=== PATIENT | female | born 1980 | race Caucasian/White ===

== ENCOUNTER 2016-09-21 12:42 | Inpatient (IN) | payer OTHER ==
[2016-09-21] MEDS ORDERED: HYDROmorphone 1 MG/ML 1 ML SYRINGE IVP STA (13:24)
[2016-09-21] MEDS ORDERED: SODIUM CHLORIDE 0.9% 1,000 ML IV STA (13:24)
[2016-09-21] MEDS ORDERED: ONDANSETRON 4 MG/2 ML VIAL IVP STA (13:24)
--- NOTE | 2016-09-21 13:33 | ED ---
General Adult HPI - General Chief complaint: Abdominal Pain Stated complaint: vomiting Time Seen by Provider: 09/21/16 13:17 Source: patient, RN notes reviewed Mode of arrival: ambulatory Limitations: no limitations - History of Present Illness Initial comments: Patient 36-year-old female who presents emergency room today with a chief complaint of abdominal pain over the last 2 weeks. Does admit to symptoms of nausea vomiting. States she's been feeling lightheaded at times. States had difficult time keeping down any food or liquids. Patient does admit that she's had pain in the past that she's not is related to acid reflux. Patient denies any other complaints or associated symptoms. Patient denies any recent fever, chills, shortness of breath, chest pain, back pain, numbness or tingling, dysuria or hematuria, constipation or diarrhea, headaches or visual changes, or any other complaints. - Related Data Home Medications Medication Instructions Recorded Confirmed No Known Home Medications [No 09/21/16 09/21/16 Known Home Medications] Allergies Allergy/AdvReac Type Severity Reaction Status Date / Time cephalexin monohydrate Allergy Rash/Hives Verified 09/21/16 13:20 [From Keflex] codeine Allergy Rash/Hives Verified 09/21/16 13:20 Review of Systems ROS Statement: Those systems with pertinent positive or pertinent negative responses have been documented in the HPI. ROS Other: All systems not noted in ROS Statement are negative. Past Medical History Past Medical History: GERD/Reflux Additional Past Medical History / Comment(s): CURRENT: MULTIPLE EC VISIT AND TESTING FOR ABD PAIN, FOUND TO HAVE KIDNEY STONE (RIGHT). History of Any Multi-Drug Resistant Organisms: None Reported Past Surgical History: Appendectomy, Orthopedic Surgery Additional Past Surgical History / Comment(s): Left knee surgery Past Anesthesia/Blood Transfusion Reactions: No Reported Reaction Past Psychological History: Anxiety Smoking Status: Current every day smoker Past Alcohol Use History: Occasional Additional Past Alcohol Use History / Comment(s): SMOKED 20 YRS, 1/2 PPD. Past Drug Use History: Marijuana - Past Family History Mother Family Medical History: Diabetes Mellitus Brother(s) Family Medical History: Diabetes Mellitus General Exam - General Exam Comments Initial Comments: General: The patient is awake and alert, in no distress, and does not appear acutely ill. Eye: Pupils are equal, round and reactive to light, extra-ocular movements are intact. No nystagmus. There is normal conjunctiva bilaterally. No signs of icterus. Ears, nose, mouth and throat: There are moist mucous membranes and no oral lesions. Neck: The neck is supple, there is no tenderness or JVD. Cardiovascular: There is a regular rate and rhythm. No murmur, rub or gallop is appreciated. Respiratory: Lungs are clear to auscultation, respirations are non-labored, breath sounds are equal. No wheezes, stridor, rales, or rhonchi. Gastrointestinal: Normal. 7. Normal bowel sounds. Soft on palpation. Patient does have tenderness epigastric and right upper quadrant. Positive Luqeu sign. No rebound tenderness. No guarding. No CVA tenderness. Musculoskeletal: Normal ROM, no tenderness. Strength 5/5. Sensation intact. Pulses equal bilaterally 2+. Neurological: A&O x 3. CN II-XII intact, There are no obvious motor or sensory deficits. Coordination appears grossly intact. Speech is normal. Skin: Skin is warm and dry and no rashes or lesions are noted. Psychiatric: Cooperative, appropriate mood & affect, normal judgment. Limitations: no limitations Course Vital Signs 09/21/16 09/21/16 12:59 14:28 Temperature 98 F 98.2 F Pulse Rate 106 H 69 Respiratory 20 16 Rate Blood Pressure 132/69 102/55 O2 Sat by Pulse 99 100 Oximetry EKG Findings - EKG Comments: EKG Findings:: EKG performed at 1437: Shows sinus rhythm at 64 bpm. NC interval 108. QRS 82. QT/QTc 428/441. Compared to previous EKG performed on 01/10/2016 shows no acute changes. Medical Decision Making - Medical Decision Making Patient reexamined at this time is resting comfortably in the stretcher states still feeling nauseated. Patient's ultrasound reviewed shows no evidence of cholecystitis. No gallstones. Common bile blood within normal limits. Shows a resolving hydronephrosis. Patient does have history of a kidney stone. Patient labs been reviewed does show hypokalemia. Has been given by mouth and IV potassium. Patient will be admitted for hypokalemia and dehydration. Patient's EKG reviewed shows no acute changes. Results were discussed with the patient. Patient aware the plan. - Lab Data Result diagrams: 09/21/16 13:50 09/21/16 13:50 Lab Results 09/21/16 09/21/16 09/21/16 Range/Units 13:50 13:50 13:50 WBC 3.6 L (3.8-10.6) k/uL RBC 3.34 L (3.80-5.40) m/uL Hgb 13.1 (11.4-16.0) gm/dL Hct 38.5 (34.0-46.0) % MCV 115.4 H (80.0-100.0) fL MCH 39.1 H (25.0-35.0) pg MCHC 33.9 (31.0-37.0) g/dL RDW 14.4 (11.5-15.5) % Plt Count 129 L (150-450) k/uL Neutrophils % 66 % Lymphocytes % 28 % Monocytes % 4 % Eosinophils % 1 % Basophils % 0 % Neutrophils # 2.4 (1.3-7.7) k/uL Lymphocytes # 1.0 (1.0-4.8) k/uL Monocytes # 0.1 (0-1.0) k/uL Eosinophils # 0.0 (0-0.7) k/uL Basophils # 0.0 (0-0.2) k/uL Manual Slide Review Performed Poikilocytosis (manual Present Macrocytosis Marked Sodium 136 L (137-145) mmol/L Potassium 2.7 L* (3.5-5.1) mmol/L Chloride 89 L (98-107) mmol/L Carbon Dioxide 33 H (22-30) mmol/L Anion Gap 14 mmol/L BUN 6 L (7-17) mg/dL Creatinine 0.62 (0.52-1.04) mg/dL Est GFR (MDRD) Af Amer >60 (>60 ml/min/1.73 sqM) Est GFR (MDRD) Non-Af >60 (>60 ml/min/1.73 sqM) Glucose 103 H (74-99) mg/dL Calcium 9.4 (8.4-10.2) mg/dL Total Bilirubin 1.2 (0.2-1.3) mg/dL AST 122 H (14-36) U/L ALT 33 (9-52) U/L Alkaline Phosphatase 215 H (38-126) U/L Total Protein 7.4 (6.3-8.2) g/dL Albumin 4.1 (3.5-5.0) g/dL Amylase 39 (30-110) U/L Lipase 54 (23-300) U/L Urine Color Urine Appearance (Clear) Urine pH (5.0-8.0) Ur Specific Zill[place] (1.001-1.035) Urine Protein (Negative) Urine Glucose (UA) (Negative) Urine Ketones (Negative) Urine Blood (Negative) Urine Nitrite (Negative) Urine Bilirubin (Negative) Urine Urobilinogen (<2.0) mg/dL Ur Leukocyte Esterase (Negative) Urine WBC (0-5) /hpf Ur Squamous Epith Cells (0-4) /hpf Urine Mucus (None) /hpf Urine HCG, Qual Not Detected (Not Detectd) 09/21/16 Range/Units 13:50 WBC (3.8-10.6) k/uL RBC (3.80-5.40) m/uL Hgb (11.4-16.0) gm/dL Hct (34.0-46.0) % MCV (80.0-100.0) fL MCH (25.0-35.0) pg MCHC (31.0-37.0) g/dL RDW (11.5-15.5) % Plt Count (150-450) k/uL Neutrophils % % Lymphocytes % % Monocytes % % Eosinophils % % Basophils % % Neutrophils # (1.3-7.7) k/uL Lymphocytes # (1.0-4.8) k/uL Monocytes # (0-1.0) k/uL Eosinophils # (0-0.7) k/uL Basophils # (0-0.2) k/uL Manual Slide Review Poikilocytosis (manual Macrocytosis Sodium (137-145) mmol/L Potassium (3.5-5.1) mmol/L Chloride (98-107) mmol/L Carbon Dioxide (22-30) mmol/L Anion Gap mmol/L BUN (7-17) mg/dL Creatinine (0.52-1.04) mg/dL Est GFR (MDRD) Af Amer (>60 ml/min/1.73 sqM) Est GFR (MDRD) Non-Af (>60 ml/min/1.73 sqM) Glucose (74-99) mg/dL Calcium (8.4-10.2) mg/dL Total Bilirubin (0.2-1.3) mg/dL AST (14-36) U/L ALT (9-52) U/L Alkaline Phosphatase (38-126) U/L Total Protein (6.3-8.2) g/dL Albumin (3.5-5.0) g/dL Amylase (30-110) U/L Lipase (23-300) U/L Urine Color Dark Brown Urine Appearance Cloudy H (Clear) Urine pH 6.0 (5.0-8.0) Ur Specific Zill[place] 1.022 (1.001-1.035) Urine Protein 2+ H (Negative) Urine Glucose (UA) Negative (Negative) Urine Ketones 1+ H (Negative) Urine Blood Large H (Negative) Urine Nitrite Negative (Negative) Urine Bilirubin 1+ H (Negative) Urine Urobilinogen 4.0 (<2.0) mg/dL Ur Leukocyte Esterase Trace H (Negative) Urine WBC 9 H (0-5) /hpf Ur Squamous Epith Cells 32 H (0-4) /hpf Urine Mucus Many H (None) /hpf Urine HCG, Qual (Not Detectd) Disposition Clinical Impression: Hypokalemia, Nausea & vomiting Disposition: ADMITTED IP TO THIS HOSP Condition: Stable Time of Disposition: 15:22
[2016-09-21 14:12] LABS: Basophils % (A) 0 %; CHCM 34.8; Eosinophils % (A) 1 %; HCT 38.5 % (34.0-46.0); HDW 2.57; HGB 13.1 gm/dL (11.4-16.0); Luc # (Auto) 0.06; Luc % (Auto) 2; Lymphocytes % (A) 28 %; MCH 39.1 pg (25.0-35.0); MCHC 33.9 g/dL (31.0-37.0); MCV 115.4 fL (80.0-100.0); Macrocytosis Marked; Mean Platelet Volume 8.7; Monocytes # (A) 0.1 k/uL (0-1.0); Monocytes % (A) 4 %; Neutrophils # (A) 2.4 k/uL (1.3-7.7); Neutrophils % (A) 66 %; RBC 3.34 m/uL (3.80-5.40); RDW 14.4 % (11.5-15.5); WBC 3.6 k/uL (3.8-10.6); WBC (Perox) 3.56
[2016-09-21 14:22] LABS: ALT 33 U/L (9-52); AST 122 U/L (14-36); Alkaline Phosphatase 215 U/L (38-126); Amylase 39 U/L (30-110); Anion Gap 14 mmol/L; Blood Urea Nitrogen 6 mg/dL (7-17); Calcium 9.4 mg/dL (8.4-10.2); Carbon Dioxide 33 mmol/L (22-30); Chloride 89 mmol/L (98-107); Glucose 103 mg/dL (74-99); Non-African American GFR(MDRD) >60 (>60 ml/min/1.73 sqM); Sodium 136 mmol/L (137-145); Total Bilirubin 1.2 mg/dL (0.2-1.3); Total Protein 7.4 g/dL (6.3-8.2)
[2016-09-21 14:25] LABS: Potassium 2.7 mmol/L (3.5-5.1)
[2016-09-21 14:26] LABS: Appearance,Urine Cloudy (Clear); Bilirubin,Urine 1+ (Negative); Glucose,Urine (UA) Negative (Negative); Ketones,Urine 1+ (Negative); Leukocyte Esterase,Urine Trace (Negative); Mucus,Urine Many /hpf; Nitrite,Urine Negative (Negative); Particle Count 56491; Protein,Urine 2+ (Negative); Specific Gravity,Urine 1.022 (1.001-1.035); Squamous Epithelial Cell,Urine 32 /hpf (0-4); UA Billing (MACRO vs. MICRO) MICRO; WBC,Urine 9 /hpf (0-5)
[2016-09-21] MEDS ORDERED: POTASSIUM CHLORIDE ER 20 MEQ TAB.ER PO STA (14:27)
[2016-09-21 14:36] LABS: Manual Review Performed
--- NOTE | 2016-09-21 14:49 | US ---
EXAMINATION TYPE: US abdomen limited DATE OF EXAM: 09/21/2016 2:11 PM COMPARISON: Ultrasound abdomen dated 10 January 2016, CT abdomen pelvis 10 May 2016 CLINICAL HISTORY: Pain x 2 weeks radiating to back. vomiting. EXAM MEASUREMENTS: Liver Length: 19cm Gallbladder Wall: 0.1 cm CBD: 0.4 cm Right Kidney: 10.3 x 5.1 x 3.7 cm cm There is no ascites. Pancreas: Partially obscured by bowel gas Liver: wnl, sub optimal visualization overall d/t overlying bowel gas. The liver again shows coarse echotexture and shows an increase in, is enlarged. Gallbladder: wnl, large in size. Fold at neck and fundus CBD: wnl Right Kidney: Resolution of patient's hydronephrosis. IMPRESSION: Interval resolution of right-sided hydronephrosis. Fatty infiltration of the liver, hepat omegaly. Limited exam.
--- NOTE | 2016-09-21 15:03 | XR ---
EXAMINATION TYPE: XR KUB DATE OF EXAM ORDERED: 09/21/2016 2:38 PM HISTORY: abdominal pain. COMPARISON: Previous study dated 05/22/2016. FINDINGS: The abdominal gas pattern is normal. There is no evidence of obstruction or free air. Ther e are are stable phleboliths within the pelvis. IMPRESSION: NO ACUTE INTRA-ABDOMINAL ABNORMALITY.
[2016-09-21] MEDS: SODIUM CHLORIDE 0.9% 1,000 ML IV STA ×2 (15:13→15:41)
[2016-09-21] MEDS ORDERED: NALOXONE 0.4 MG/ML 1 ML VIAL IV PRN (15:35)
[2016-09-21] MEDS ORDERED: SODIUM CHLORIDE 0.9% 1,000 ML IV ONE (15:35)
[2016-09-21] MEDS: POTASSIUM CHLORIDE 10 MEQ, LIDOCAINE 2% INJ 10 MG in SODIUM CHLORIDE 0.9% 100 ML IVPB SCH ×4 (15:39→20:03)
[2016-09-21] MEDS: ONDANSETRON 4 MG/2 ML VIAL IVP PRN (17:15)
[2016-09-21] MEDS: HYDROmorphone 1 MG/ML 1 ML SYRINGE IV PRN ×2 (17:16→20:48)
[2016-09-21] MEDS ORDERED: 0.9% NACL WITH KCL 20 MEQ/L 1,000 ML IV ONE (18:00)
[2016-09-21] MEDS: LEVOFLOXACIN 500MG-D5W PMX 500 MG in DEXTROSE/WATER 1 100ML.BAG IVPB SCH (20:52)
--- NOTE | 2016-09-21 22:34 | HP ---
CHIEF COMPLAINT: Abdominal pain, diarrhea and hypokalemia. HISTORY OF PRESENT ILLNESS: This 36-year-old woman with a past medical history of multiple medical problems, including GERD, history of significant abdominal pain and multiple ER visits, history of nephrolithiasis, history of DJD, history of anxiety, history of THC being followed by no primary physician in the outpatient setting, was complaining of abdominal pain, nausea and vomiting for the last 2 weeks. The patient also had a cough and vomiting also initially. Because of increased symptoms, the patient came to [facility], admitted for further evaluation and treatment. Of note, the patient was found to have severe hypokalemia, potassium 2.7. The patient's AST was also elevated. There is no history of any fever, rigors, chills. No history of headache, loss of consciousness. UA showed significant proteinuria and 9 WBCs. Influenza is negative. PAST MEDICAL HISTORY: History of GERD, history of multiple , history of DJD, history of anxiety, history of nicotine dependence. Medications prior to admission include none. ALLERGIES: CEPHALEXIN AND CODEINE. FAMILY HISTORY: History of diabetes mellitus in the family. SOCIAL HISTORY: No alcohol per chart. History of nicotine dependence. REVIEW OF SYSTEMS: ENT: No diminished hearing, diminished vision. CARDIOVASCULAR: No angina, palpitations. RESPIRATORY: As mentioned earlier. GI: As mentioned earlier. : No dysuria. NERVOUS: No numbness or weakness. ALLERGY/IMMUNOLOGY: No asthma or hay fever. MUSCULOSKELETAL: As mentioned earlier. HEMATOLOGY/ONCOLOGY: No history of anemia. ENCODRINE: No history of diabetes, hypothyroidism. CONSTITUTIONAL: As mentioned earlier. DERMATOLOGY: Negative. RHEUMATOLOGY: Negative. PSYCHIATRY: As mentioned earlier. PHYSICAL EXAMINATION: Alert and oriented x3. Pulse of 69, blood pressure 119/55, respirations 16, temperature 98.4, pulse ox 98% on room air. HEENT: Conjunctivae normal. Oral mucosa dry. NECK: No jugular venous distension. No carotid bruits. No lymph node enlargement. CARDIOVASCULAR: S1 and S2 muffled. No S3. No S4. RESPIRATORY: Breath sounds diminished in the bases. A few scattered rhonchi. No crackles. ABDOMEN: Soft. Mild diffuse discomfort to palpation. No guarding. No rigidity. No mass palpable. LEGS: No edema. No swelling. NERVOUS SYSTEM: Higher functions as mentioned. Moves all 4 limbs. No focal motor or sensory deficits. LYMPHATIC: No lymph nodes palpable in the neck, axillae or groin. SKIN: No ulcer, rash or bleeding. LABS: WBC 8.6, hemoglobin 13.1, MCV is 115.4, platelets are 129. Sodium 138, potassium 2.7. Other labs are noted. ASSESSMENT: 1. Nausea, vomiting and diarrhea with severe dehydration, possibly acute gastroenteritis. 2. Severe hypokalemia secondary from diarrhea. 3. Hyponatremia. 4. Increased AST, rule out hepatitis. 5. Thrombocytopenia. 6. Increased MCV. 7. Mild leukopenia. 8. Proteinuria. 9. Rule out possible urinary tract infection. 10. History nicotine dependence. 11. History of anxiety and not otherwise specified. 12. History THC. 13. History of degenerative joint disease. 14. History of gastroesophageal reflux disease. 15. History of right hydronephrosis. 16. Fatty infiltration of liver. 17. FULL CODE. RECOMMENDATIONS AND DISCUSSION: In this 36-year-old woman who presented with multiple complex medical issues, will monitor the patient closely. Continue the current medications and symptomatic treatment. Will check for C. diff. and influenza. Otherwise, I will recommend empiric antibiotics and continue to monitor. The abdominal ultrasound was done, which in the ER showed interval resolution of the right hydronephrosis. Otherwise, fatty infiltration of liver and hepatomegaly is noted. The KUB x-rays showed no acute intra-abdominal abnormality. Prognosis guarded. See orders for further details. Further recommendations to follow. Repeat potassium has been recommended. Will check magnesium as well. Also recommend the patient follow up with a primary care physician closely after discharge. TEOFILO
[2016-09-22] MEDS: TEMAZEPAM 15 MG CAP PO PRN ×2 (00:18→20:33)
[2016-09-22] MEDS: HYDROmorphone 1 MG/ML 1 ML SYRINGE IV PRN ×7 (00:49→21:26)
--- NOTE | 2016-09-22 07:19 | XR ---
EXAMINATION TYPE: XR chest 1V portable DATE OF EXAM: 09/22/2016 7:13 AM CLINICAL HISTORY: CHF per order. TECHNIQUE: Single AP portable frontal upright view of the chest is obtained. COMPARISON: Chest x-ray April 11, 2014 FINDINGS: There is no focal air space opacity, pleural effusion, or pneumothorax seen. The cardiac silhouette size is within normal limits. The osseous structures are intact. IMPRESSION: No acute process.
[2016-09-22 07:58] LABS: Basophils % (A) 0 %; CH 39.5; CHCM 32.5; Eosinophils % (A) 1 %; HCT 30.9 % (34.0-46.0); Luc # (Auto) 0.06; Luc % (Auto) 2; Lymphocytes # (A) 1.3 k/uL (1.0-4.8); Lymphocytes % (A) 49 %; MCH 38.8 pg (25.0-35.0); MCHC 31.8 g/dL (31.0-37.0); Macrocytosis Marked; Mean Platelet Volume 10.2; Monocytes # (A) 0.1 k/uL (0-1.0); Monocytes % (A) 4 %; Neutrophils # (A) 1.1 k/uL (1.3-7.7); Neutrophils % (A) 43 %; RBC 2.53 m/uL (3.80-5.40); RDW 14.4 % (11.5-15.5); WBC 2.6 k/uL (3.8-10.6); WBC (Perox) 2.62
[2016-09-22 08:02] LABS: MCV 122.2 fL (80.0-100.0)
[2016-09-22 08:04] LABS: ALT 28 U/L (9-52); AST 85 U/L (14-36); Alkaline Phosphatase 114 U/L (38-126); Anion Gap 9 mmol/L; Blood Urea Nitrogen 3 mg/dL (7-17); Carbon Dioxide 25 mmol/L (22-30); Chloride 105 mmol/L (98-107); Glucose 94 mg/dL (74-99); Magnesium 1.6 mg/dL (1.6-2.3); Non-African American GFR(MDRD) >60 (>60 ml/min/1.73 sqM); Potassium 3.6 mmol/L (3.5-5.1); Sodium 139 mmol/L (137-145); Total Bilirubin 0.7 mg/dL (0.2-1.3); Total Protein 5.2 g/dL (6.3-8.2)
[2016-09-22 08:34] LABS: Polychromasia Present
[2016-09-22] MEDS: PANTOPRAZOLE 40 MG/10 ML VIAL IVP SCH (09:48)
[2016-09-22 11:02] VITALS: BMI 18.3
[2016-09-22 13:16] LABS: HGB 9.8 gm/dL (11.4-16.0)
[2016-09-22] MEDS: IOHEXOL 350 MG/ML 25 ML BOTTLE (ORAL USE) PO PRN ×2 (16:13→17:08)
--- NOTE | 2016-09-22 18:32 | CT ---
EXAMINATION TYPE: CT abdomen pelvis wo con DATE OF EXAM: 09/22/2016 6:10 PM COMPARISON: Prior CT abdomen pelvis 10 May 2016 HISTORY: Abdominal pain with diarrhea and vomiting. CT DLP: 220.5 mGycm Automated exposure control for dose reduction was used. TECHNIQUE: Helical acquisition of images from the lung bases through the pelvis. FINDINGS: LUNG BASES: No significant abnormality is appreciated. AORTA: No significant abnormality is appreciated. LIVER/GB: Liver shows low attenuation likely due to fatty infiltration. Gallbladder is unremarkable. The liver is enlarged. PANCREAS: No significant abnormality is seen. SPLEEN: No significant abnormality is seen. ADRENALS: No significant abnormality is seen. KIDNEYS: No significant abnormality is seen. REPRODUCTIVE ORGANS: There is a cystic right ovarian lesion measuring 2.4 cm likely an ovarian cyst. URINARY BLADDER: No significant abnormality is seen. BOWEL: Annular lesions with be difficult to exclude within the colon sigmoid colon and descending co jer, splenic flexure. There is abnormal wall thickening of the colon especially in the descending col on as well as distal ileum. Proximal small bowel shows shows wall thickening. FREE AIR: No Free Air is visible. ASCITES: None visible. PELVIC ADENOPATHY: None visualized. RETROPERITONEAL ADENOPATHY: No Retroperitoneal Adenopathy visible. OSSEOUS STRUCTURES: No significant abnormality is seen. IMPRESSION: CORRELATE FOR COLITIS, ENTERITIS. DIFFICULT TO EXCLUDE AN ANNULAR LESION, MUCOSAL ABNORMALITY ON THE BASIS OF THIS EXAM. LACK OF CONTRAST MAY LIMIT THE EXAM. FATTY INFILTRATION OF THE LIVER, HEPATOMEGAL Y. POSSIBLE RIGHT OVARIAN CYST.
[2016-09-22] MEDS: SODIUM CHLORIDE 0.9% 1,000 ML IV SCH (18:59)
[2016-09-22] MEDS: LEVOFLOXACIN 500MG-D5W PMX 500 MG in DEXTROSE/WATER 1 100ML.BAG IVPB SCH (20:31)
--- NOTE | 2016-09-22 21:23 | PN ---
DATE OF SERVICE: 09/22/2016 This 36-year-old woman was admitted with nausea, vomiting, diarrhea, had severe dehydration, possibly acute gastroenteritis. Patient had severe hypokalemia as well. Patient had multiple lab abnormalities also. The patient had a previous history of alcohol, even though the patient denies significant alcoholism recently. The most recent chest x-ray done today showed no acute process. The patient also complaining of abdominal pain intravenous narcotics. PAST MEDICAL HISTORY: Reviewed. REVIEW OF SYSTEMS: CARDIOVASCULAR: No angina or palpitations. RESPIRATORY: As mentioned earlier. GI: As mentioned earlier. : No dysuria. NERVOUS: No numbness or weakness. Current medications are reviewed and include: 1. Dilaudid 1 mg q.3 p.r.n. 3. Levaquin 500 mg daily. 4. Narcan 0.2 q.2 p.r.n. 5. Zofran. 6. Protonix 40 mg daily. 7. Thiamine. 8. Restoril 50 mg p.o. daily. PHYSICAL EXAM: Patient alert and oriented x3. Pulse 85, blood pressure 104/61, respirations 16, temperature is 97.5, pulse ox 100% on room air. HEENT: Conjunctivae normal. Oral mucosa moist. NECK: No jugular venous distension. No carotid bruits. No lymph node enlargement. CARDIOVASCULAR SYSTEM: S1, S2 muffled. No S3. No S4. RESPIRATORY: Breath sounds diminished in the bases. A few scattered rhonchi. No crackles. ABDOMEN: Soft. Mild diffuse discomfort to palpation. No guarding. No rigidity. No mass palpable. LEGS: No edema. No swelling. NERVOUS SYSTEM: No focal deficit. LABS: MCV 122.2 and WBC 6.6 and platelets of 74. Potassium 3.6. AST is 85. Albumin is 2.5. UA noted. Drug screen is positive for THC. ( ) is negative. ASSESSMENT: 1. Nausea, vomiting, diarrhea, possible severe dehydration, possible acute gastroenteritis. 2. Severe hypokalemia secondary to diarrhea. 3. Hyponatremia. 4. Increased AST, possibly alcoholic hepatitis. 5. Thrombocytopenia. 6. Possible urinary tract infection. 7. Increased MCV. 8. Mild leukopenia. 9. Proteinuria. 10. History of nicotine dependence. 11. History of anxiety, not otherwise specified. 12. History of THC. 13. History of degenerative joint disease. 14. History of gastroesophageal reflux disease. 15. History of right hydronephrosis with fatty infiltration of the liver. 16. FULL CODE. 17. Abdominal pain. RECOMMENDATIONS AND DISCUSSION: In this 36-year-old woman who presented with multiple complex medical issues, we will monitor the patient closely. Will continue the current medications, continue symptomatic treatment, continue with antibiotics. Repeat labs. The patient and most of the labs improving at this time. The possibility of chronic liver disease needs to be considered and I would also supplement vitamins. Otherwise, closely monitor. I would also recommend a CT scan of the abdomen and pelvis to rule out possibility of any acute abdomen. Guarded prognosis. Further recommendations to follow. See orders for further details. MTDD
[2016-09-23] MEDS: HYDROmorphone 1 MG/ML 1 ML SYRINGE IV PRN ×6 (01:07→20:54)
[2016-09-23 07:19] LABS: ALT 28 U/L (9-52); AST 86 U/L (14-36); Alkaline Phosphatase 102 U/L (38-126); Anion Gap 6 mmol/L; Blood Urea Nitrogen <2 mg/dL (7-17); Carbon Dioxide 21 mmol/L (22-30); Chloride 113 mmol/L (98-107); Glucose 84 mg/dL (74-99); Non-African American GFR(MDRD) >60 (>60 ml/min/1.73 sqM); Potassium 4.5 mmol/L (3.5-5.1); Sodium 140 mmol/L (137-145); Total Bilirubin 0.4 mg/dL (0.2-1.3); Total Protein 4.6 g/dL (6.3-8.2)
[2016-09-23 07:24] LABS: Basophils % (A) 0 %; CH 38.5; CHCM 31.5; Eosinophils % (A) 2 %; HCT 28.3 % (34.0-46.0); HDW 2.49; HGB 9.2 gm/dL (11.4-16.0); Luc # (Auto) 0.06; Luc % (Auto) 3; Lymphocytes % (A) 43 %; MCH 39.8 pg (25.0-35.0); MCHC 32.4 g/dL (31.0-37.0); MCV 122.8 fL (80.0-100.0); Macrocytosis Marked; Mean Platelet Volume 8.9; Monocytes # (A) 0.1 k/uL (0-1.0); Monocytes % (A) 4 %; Neutrophils # (A) 1.2 k/uL (1.3-7.7); Neutrophils % (A) 48 %; RBC 2.31 m/uL (3.80-5.40); RDW 14.1 % (11.5-15.5); WBC 2.4 k/uL (3.8-10.6); WBC (Perox) 2.44
[2016-09-23 08:49] LABS: Polychromasia Present
[2016-09-23] MEDS: PANTOPRAZOLE 40 MG/10 ML VIAL IVP SCH (09:07)
[2016-09-23] MEDS: SODIUM CHLORIDE 0.9% 1,000 ML IV SCH (19:35)
[2016-09-23] MEDS ORDERED: ACETAMINOPHEN TAB 325 MG TAB PO PRN (20:24)
[2016-09-23] MEDS: LEVOFLOXACIN 500MG-D5W PMX 500 MG in DEXTROSE/WATER 1 100ML.BAG IVPB SCH (20:44)
[2016-09-23] MEDS: TEMAZEPAM 15 MG CAP PO PRN (23:16)
[2016-09-24] MEDS: HYDROmorphone 1 MG/ML 1 ML SYRINGE IV PRN ×4 (00:46→12:43)
[2016-09-24 07:43] LABS: Basophils % (A) 0 %; CH 38.6; CHCM 31.5; Eosinophils % (A) 1 %; HCT 28.6 % (34.0-46.0); HGB 9.3 gm/dL (11.4-16.0); Luc # (Auto) 0.05; Luc % (Auto) 2; Lymphocytes # (A) 0.7 k/uL (1.0-4.8); Lymphocytes % (A) 35 %; MCHC 32.5 g/dL (31.0-37.0); Macrocytosis Marked; Mean Platelet Volume 9.5; Monocytes # (A) 0.1 k/uL (0-1.0); Monocytes % (A) 4 %; Neutrophils # (A) 1.1 k/uL (1.3-7.7); Neutrophils % (A) 58 %; RBC 2.33 m/uL (3.80-5.40); RDW 14.4 % (11.5-15.5); WBC (Perox) 2.06
[2016-09-24 07:47] LABS: ALT 30 U/L (9-52); AST 83 U/L (14-36); Alkaline Phosphatase 94 U/L (38-126); Anion Gap 3 mmol/L; Blood Urea Nitrogen <2 mg/dL (7-17); Calcium 7.9 mg/dL (8.4-10.2); Carbon Dioxide 22 mmol/L (22-30); Chloride 112 mmol/L (98-107); Glucose 88 mg/dL (74-99); Non-African American GFR(MDRD) >60 (>60 ml/min/1.73 sqM); Sodium 137 mmol/L (137-145); Total Bilirubin 0.4 mg/dL (0.2-1.3); Total Protein 4.6 g/dL (6.3-8.2)
[2016-09-24 08:11] VITALS: RESP 16
[2016-09-24] MEDS ORDERED: SODIUM POLYSTYRENE SULFONATE 15 GM/60 ML BOTTLE PO STA (08:14)
[2016-09-24] MEDS ORDERED: SODIUM CHLORIDE 0.9% 1,000 ML IV SCH (08:15)
[2016-09-24] MEDS: PANTOPRAZOLE 40 MG/10 ML VIAL IVP SCH (08:42)
[2016-09-24 09:38] LABS: Polychromasia Present; Stomatocytes Present
[2016-09-24] MEDS: ONDANSETRON 4 MG/2 ML VIAL IVP PRN (09:52)
[2016-09-24 10:34] LABS: INR 1.1 (<1.1); Prothrombin Time 11.3 sec (9.0-12.0)
[2016-09-24 10:35] LABS: Partial Thromboplastin Time 24.8 sec (22.0-30.0)
[2016-09-24 10:44] LABS: Anion Gap 1 mmol/L; Carbon Dioxide 23 mmol/L (22-30); Chloride 110 mmol/L (98-107); Iron 39 ug/dL (37-170); LDH 430 U/L (313-618); Potassium 5.2 mmol/L (3.5-5.1); Sodium 134 mmol/L (137-145)
[2016-09-24 10:45] LABS: Reticulocyte % 2.5 % (0.5-2.0)
[2016-09-24 10:54] LABS: % Iron Saturation 19.5 % (20-50); Rheumatoid Factor, Qnt <9 IU/mL (<12); Total Iron Binding Capacity 200 ug/dL (265-497)
[2016-09-24 11:06] VITALS: BP 105/64; PULSE 87; TEMP 98.1
[2016-09-24 12:09] LABS: Basophils % (A) 1 %; CH 38.8; CHCM 32.2; Eosinophils % (A) 2 %; HDW 2.43; HGB 9.2 gm/dL (11.4-16.0); Luc # (Auto) 0.05; Luc % (Auto) 2; Lymphocytes # (A) 0.6 k/uL (1.0-4.8); Lymphocytes % (A) 30 %; MCH 38.5 pg (25.0-35.0); MCHC 31.8 g/dL (31.0-37.0); MCV 121.1 fL (80.0-100.0); Macrocytosis Marked; Mean Platelet Volume 10.4; Monocytes # (A) 0.1 k/uL (0-1.0); Monocytes % (A) 6 %; Neutrophils # (A) 1.2 k/uL (1.3-7.7); Neutrophils % (A) 59 %; RDW 14.6 % (11.5-15.5); WBC 2.1 k/uL (3.8-10.6); WBC (Perox) 2.31
[2016-09-24 12:09] LABS: Hepatitis B Core IgM Index 0.12
[2016-09-24 12:21] LABS: Hepatitis C Virus IgG Index 0.03
[2016-09-24 12:22] LABS: Hepatitis C Virus IgG Ab Negative (Negative)
--- NOTE | 2016-09-24 16:56 | PN ---
DATE OF SERVICE: 09/23/2016 This 36-year-old woman was admitted with nausea and vomiting, possible severe dehydration, acute gastroenteritis, also had multiple electrolytes abnormalities and pancytopenia. Also, the patient is being closely monitored. No chest pain. No palpitations. No fever. The patient also had significant multiple bruises. Also CT scan showed colitis and possibly fatty infiltration and hepatomegaly also. On exam, patient is alert and oriented x three. Pulse 98, blood pressure 99/68, respiratory rate 18, temperature 98.1. Pulse ox 100% on room air. HEENT: Conjunctivae normal. Oral mucosa moist. NECK: No jugular venous distention. No carotid bruit. No lymph node enlargement. CARDIOVASCULAR: S1, S2 muffled. No S3, no S4. RESPIRATORY: Breath sounds diminished at the bases. No rhonchi. No crackles. ABDOMEN: Soft, nontender. No mass palpable. LEGS: No edema. No swelling. SKIN: Multiple bruises. LABS: WBC 2.5, hemoglobin is 9.2, platelets 73. ASSESSMENT: 1. Nausea, vomiting and diarrhea possible severe dehydration, possible acute gastroenteritis. 2. Severe hypokalemia secondary to diarrhea. 3. Hyponatremia. 4. Thrombocytopenia. 5. Pancytopenia of undetermined etiology. 6. Increased AST, possible alcoholic hepatitis. 7. History significant ETOH previously. 8. Urinary tract infection. 9. Increased MCV. 10. Mild leukopenia. 11. Proteinuria. 12. History of nicotine dependence. 13. History of anxiety, not otherwise specified. 14. History of THC. 15. History of degenerative joint disease. 16. History of gastroesophageal reflux disease. 17. History of right hydronephrosis. 18. Fatty infiltration of the liver on the CAT scan. 19. Abdominal pain. 20. FULL CODE. RECOMMENDATIONS AND DISCUSSION: In this 36-year-old woman who presented with multiple complex medical issues, we will monitor the patient closely. Continue the current medications. Continue symptomatic treatment. Otherwise, I would also recommend advance the diet. Increase ambulation. Repeat labs. I would also recommend evaluation by Dr. Ureña for pancytopenia. Hypokalemia is improving at this time. The patient might need a bone marrow aspiration. Prognosis guarded. Further recommendations to follow.
[2016-09-24 18:01] LABS: ANA w/Reflex to Titer NEGATIVE (NEGATIVE)
--- NOTE | 2016-09-25 00:23 | P.CONS ---
History of Present Illness - Reason for Consult Consult date: 09/24/16 Pancytopenia - History of Present Illness THe pt is a 36 yr old WF, who presented the ER on 09/21/16 with c/o abdominal pain radiating through to the back since anout 2 weeks prior. She also c/o intermittent nausea and vomitting. She had multiple imaging studies , including KUB, US, and Ct AP. Other than a mildly enlarged liver with fatty infiltration, no other significant finding was noted. Labs did show possible UTI On admission Hgb was 13.1, plt 129, and WBC 3.6. By 09/24/16, Hgb was 9.6, plt 129, and WBC 2.1 ANC did stay > 1000. MCV was markedly elevated, in the 120 range. She denied any prior h/o blood related problems. She did give a h/o heavy ETOH use till about 2 yrs ago. No h/o any obvious, unusual bleeding in the past. The consult was thus placed for further evaluation and recommendations. Review of Systems Constitutional: Reports poor appetite, Reports weakness Eyes: denies blurred vision, denies pain Ears: deny: decreased hearing, ear discharge Ears, nose, mouth and throat: Denies headache, Denies sore throat Integumentary: Reports darkening of skin, Reports unusual bruising Neurological: Denies numbness, Denies weakness Past Medical History Past Medical History: GERD/Reflux Additional Past Medical History / Comment(s): CURRENT: MULTIPLE EC VISIT AND TESTING FOR ABD PAIN, FOUND TO HAVE KIDNEY STONE (RIGHT). History of Any Multi-Drug Resistant Organisms: None Reported Past Surgical History: Appendectomy, Orthopedic Surgery Additional Past Surgical History / Comment(s): Left knee surgery Past Anesthesia/Blood Transfusion Reactions: No Reported Reaction Past Psychological History: Anxiety Smoking Status: Current every day smoker Past Alcohol Use History: Occasional Additional Past Alcohol Use History / Comment(s): SMOKED 20 YRS, 1/2 PPD. Past Drug Use History: Marijuana - Past Family History Mother Family Medical History: Diabetes Mellitus Brother(s) Family Medical History: Diabetes Mellitus Medications and Allergies Allergies Allergy/AdvReac Type Severity Reaction Status Date / Time cephalexin monohydrate Allergy Rash/Hives Verified 09/21/16 17:09 [From Keflex] codeine Allergy Rash/Hives Verified 09/21/16 17:09 Physical Exam Vitals: Vital Signs Temp Pulse Pulse Resp BP BP Pulse Ox 09/24/16 10:57 98.1 F 87 16 105/64 97 09/24/16 08:30 88 09/24/16 08:00 95 16 98/56 100 09/24/16 00:52 97.3 F L 87 18 97/54 100 Intake and Output 09/24/16 09/24/16 09/25/16 14:59 22:59 06:59 Intake Total 920 Output Total 1000 Balance -80 Intake: Oral 920 Output: Urine 650 Emesis 350 Other: Voiding Method Toilet Results CBC & Chem 7: 09/24/16 10:06 09/24/16 10:07 Labs: Abnormal Lab Results - Last 24 Hours (Table) 09/24/16 09/24/16 09/24/16 Range/Units 07:08 07:08 10:06 WBC 2.0 L* 2.1 L (3.8-10.6) k/uL RBC 2.33 L 2.40 L (3.80-5.40) m/uL Hgb 9.3 L 9.2 L (11.4-16.0) gm/dL Hct 28.6 L 29.0 L (34.0-46.0) % MCV 123.0 H 121.1 H (80.0-100.0) fL MCH 40.0 H 38.5 H (25.0-35.0) pg Plt Count 76 L 76 L (150-450) k/uL Neutrophils # 1.1 L 1.2 L (1.3-7.7) k/uL Lymphocytes # 0.7 L 0.6 L (1.0-4.8) k/uL Retic Count (0.5-2.0) % Sodium (137-145) mmol/L Potassium 7.0 H* (3.5-5.1) mmol/L Chloride 112 H (98-107) mmol/L BUN <2 L (7-17) mg/dL Creatinine 0.43 L (0.52-1.04) mg/dL Calcium 7.9 L (8.4-10.2) mg/dL TIBC (265-497) ug/dL % Saturation (20-50) % AST 83 H (14-36) U/L Total Protein 4.6 L (6.3-8.2) g/dL Total Protein (PEP) (6.2-8.2) g/dL Albumin 2.1 L (3.5-5.0) g/dL 09/24/16 09/24/16 09/24/16 Range/Units 10:07 10:07 10:07 WBC (3.8-10.6) k/uL RBC (3.80-5.40) m/uL Hgb (11.4-16.0) gm/dL Hct (34.0-46.0) % MCV (80.0-100.0) fL MCH (25.0-35.0) pg Plt Count (150-450) k/uL Neutrophils # (1.3-7.7) k/uL Lymphocytes # (1.0-4.8) k/uL Retic Count 2.5 H (0.5-2.0) % Sodium 134 L (137-145) mmol/L Potassium 5.2 H (3.5-5.1) mmol/L Chloride 110 H (98-107) mmol/L BUN (7-17) mg/dL Creatinine (0.52-1.04) mg/dL Calcium (8.4-10.2) mg/dL TIBC 200 L (265-497) ug/dL % Saturation 19.5 L (20-50) % AST (14-36) U/L Total Protein (6.3-8.2) g/dL Total Protein (PEP) 4.9 L (6.2-8.2) g/dL Albumin (3.5-5.0) g/dL Microbiology - Last 24 Hours (Table) 09/21/16 19:04 Blood Culture - Preliminary Blood No Growth after 72 hours 09/21/16 20:25 Urine Culture - Final Urine,Voided Escherichia coli Assessment and Plan (1) Pancytopenia Narrative/Plan: At this time the etiology is not clear. Given near normal counts at presentation, high MCV , ETOH related chronic marrow damage, with further drop due to her acute illness, is the most likely. In that case counts are expected to improve spontaneously as she recovers from her acute illness. - Check labs for cytopenia w/u - All counts are in a safe range, and no immediate intervention is required - She can thus be discharged whenever felt to be appropriate by the admitting service. Status: Acute (2) Abnormal bruising Narrative/Plan: Presented on multiple areas of the trunk, and extremities. No significant bleeding has been noted. Check coags. Plt count is in a safe range Status: Acute
[2016-09-25 07:10] LABS: HIV-1/HIV-2 Ab Screen NONREAC (NON REAC)
[2016-09-25] MEDS ORDERED: PANTOPRAZOLE 40 MG TABLET PO SCH (07:30)
[2016-09-25 13:51] LABS: Free Kappa Lt Chain Qnt, Serum 1.82 mg/dL (0.33 - 1.94); Kappa/Lambda Light Chain Ratio 0.79 (0.26 - 1.65)
--- NOTE | 2016-09-25 14:52 | DS ---
DATE OF ADMISSION: 09/21/2016 DATE OF DISCHARGE: 09/24/2016 FINAL DIAGNOSES: 1. Nausea, vomiting, diarrhea, possible acute gastroenteritis with severe dehydration, present on admission. 2. Pancytopenia possibly secondary to alcohol. 3. Severe hypokalemia secondary to diarrhea. 4. Hyponatremia. 5. Increased AST, possible alcoholic hepatitis. 6. History of EtOH. 7. Thrombocytopenia. 8. Urinary tract infection. 9. Increased MCV. 10. Mild leukopenia. 11. Proteinuria. 12. History of nicotine dependence. 13. Multiple bruises. 14. History of anxiety, not otherwise specified. 15. History THC. 16. History of degenerative joint disease. 17. History of gastroesophageal reflux disease. 18. History of right hydronephrosis with fatty infiltration of the liver. 19. Abdominal pain. 20. FULL CODE. DISCHARGE DISPOSITION: The patient will be discharged in stable condition with guarded prognosis. HISTORY OF PRESENT ILLNESS: This 36-year-old woman with a past medical history of multiple medical problems and was admitted with significant diarrhea, dehydration, hypokalemia. The patient was treated conservatively. Patient improved significantly. The patient also had a CT scan of the abdomen and pelvis that did not show acute abnormality. White count is 2, hemoglobin 9.7, sodium 134, potassium 5.2. The patient will be discharged in stable condition with guarded prognosis with the following advice and medications: 1. Diet is cardiac. 2. Activity limited until follow-up. 3. No EtOH. 4. Follow up with Dr. Cárdenas 2 to 3 days. 5. Follow up with Dr. Ureña as recommended. Medications are: 1. Levaquin 500 mg p.o. daily for 5 days. 2. Multivitamin 1 p.o. daily. 3. Thiamine 100 mg. 4. Folic acid 1 mg p.o. daily. 5. CBC, BMP with Dr. Cárdenas. Once again, the patient will be discharged in a stable condition with guarded prognosis.
== END 2016-09-24 14:50 | disposition home or self-care (01) | DRG 392 ==
LOC: EC 12:42 → 6PED 16:09
PROVIDERS: ADMIT Hospitalist; ATTEND Hospitalist
DX: K52.9 Noninfective gastroenteritis and colitis, unspecified (principal); D61.818 Other pancytopenia; E87.1 Hypo-osmolality and hyponatremia; N39.0 Urinary tract infection, site not specified; D69.6 Thrombocytopenia, unspecified; E86.0 Dehydration; K76.0 Fatty (change of) liver, not elsewhere classified; E87.6 Hypokalemia; F17.200 Nicotine dependence, unspecified, uncomplicated; K21.9 Gastro-esophageal reflux disease without esophagitis; F41.9 Anxiety disorder, unspecified; M19.90 Unspecified osteoarthritis, unspecified site; R80.9 Proteinuria, unspecified; K70.10 Alcoholic hepatitis without ascites; Z88.1 Allergy status to other antibiotic agents; Z88.5 Allergy status to narcotic agent
CPT/HCPCS: 36415; 71010; 74000; 74176; 76705; 80051; 80053; 80306; 81001; 81025; 82150; 82272; 82728; 83010; 83540; 83550; 83615; 83690; 83735; 83883; 84132; 84165; 85025; 85045; 85610; 85730; 86038; 86334; 86431; 86705; 86708; 86803; 87040; 87077; 87086; 87186; 87324; 87340; 87389; 87502; 87798; 89055; 93005; 96361; 96365; 96375; 99285

== ENCOUNTER → 2016-09-26 | Outpatient (CLI) | payer OTHER ==
[2016-09-26 09:53] LABS: Anion Gap 9 mmol/L; Blood Urea Nitrogen <2 mg/dL (7-17); Calcium 8.8 mg/dL (8.4-10.2); Carbon Dioxide 26 mmol/L (22-30); Chloride 105 mmol/L (98-107); Glucose 85 mg/dL (74-99); Non-African American GFR(MDRD) >60 (>60 ml/min/1.73 sqM); Potassium 4.8 mmol/L (3.5-5.1); Sodium 140 mmol/L (137-145)
== END | disposition home or self-care (01) ==
LOC: LABWHC1 09:08
PROVIDERS: ATTEND Hospitalist
DX: E87.6 Hypokalemia (principal)
CPT/HCPCS: 36415; 80048

== ENCOUNTER 2017-03-25 18:49 | Emergency (ER) | payer OTHER ==
[2017-03-25] MEDS ORDERED: SODIUM CHLORIDE 0.9% 1,000 ML IV STA (19:09)
[2017-03-25] MEDS ORDERED: SODIUM CHLORIDE 0.9% 500 ML IV STA (19:09)
[2017-03-25] MEDS ORDERED: KETOROLAC 30 MG/ML 1 ML VIAL IVP STA (19:09)
[2017-03-25 19:48] LABS: Appearance,Urine Cloudy (Clear); Bacteria,Urine Rare /hpf; Bilirubin,Urine Negative (Negative); Glucose,Urine (UA) Negative (Negative); Ketones,Urine Negative (Negative); Leukocyte Esterase,Urine Negative (Negative); Mucus,Urine Rare /hpf; Nitrite,Urine Negative (Negative); PH, Urine 6.5 (5.0-8.0); Particle Count 3263; Protein,Urine Negative (Negative); RBC,Urine 1 /hpf (0-5); Specific Gravity,Urine 1.012 (1.001-1.035); Squamous Epithelial Cell,Urine 4 /hpf (0-4); UA Billing (MACRO vs. MICRO) MICRO; WBC,Urine 1 /hpf (0-5)
[2017-03-25 19:53] LABS: Basophils % (A) 0 %; CH 39.2; CHCM 33.9; Eosinophils # (A) 0.1 k/uL (0-0.7); Eosinophils % (A) 3 %; HCT 38.4 % (34.0-46.0); HDW 2.45; HGB 13.3 gm/dL (11.4-16.0); Luc # (Auto) 0.04; Luc % (Auto) 1; Lymphocytes # (A) 0.9 k/uL (1.0-4.8); Lymphocytes % (A) 27 %; MCHC 34.5 g/dL (31.0-37.0); MCV 115.9 fL (80.0-100.0); Macrocytosis Marked; Mean Platelet Volume 9.2; Monocytes # (A) 0.2 k/uL (0-1.0); Monocytes % (A) 5 %; Neutrophils # (A) 2.3 k/uL (1.3-7.7); Neutrophils % (A) 65 %; RBC 3.32 m/uL (3.80-5.40); RDW 13.4 % (11.5-15.5); WBC 3.5 k/uL (3.8-10.6)
[2017-03-25 19:56] LABS: ALT 62 U/L (9-52); AST 177 U/L (14-36); Alkaline Phosphatase 228 U/L (38-126); Anion Gap 11 mmol/L; Blood Urea Nitrogen 2 mg/dL (7-17); Calcium 8.9 mg/dL (8.4-10.2); Carbon Dioxide 26 mmol/L (22-30); Chloride 104 mmol/L (98-107); Glucose 94 mg/dL (74-99); Non-African American GFR(MDRD) >60 (>60 ml/min/1.73 sqM); Potassium 3.3 mmol/L (3.5-5.1); Sodium 141 mmol/L (137-145); Total Bilirubin 0.7 mg/dL (0.2-1.3); Total Protein 7.1 g/dL (6.3-8.2)
[2017-03-25] MEDS ORDERED: HYDROmorphone 1 MG/ML 1 ML SYRINGE IVP STA (20:37)
[2017-03-25 20:46] VITALS: BP 108/62; PULSE 89; RESP 18; TEMP 98.1
--- NOTE | 2017-03-25 20:48 | CT ---
EXAMINATION TYPE: CT abdomen pelvis wo con DATE OF EXAM: 03/25/2017 COMPARISON: 09/22/2016 HISTORY: RIGHT SIDE ABDOMINAL PAIN. CT DLP: 234.6 mGycm Automated exposure control for dose reduction was used. TECHNIQUE: Helical acquisition of images was performed from the lung bases through the pelvis. FINDINGS: Lack of intravenous and oral contrast limits evaluation of the hollow and solid viscera. LUNG BASES: No significant abnormality is appreciated. LIVER/GB: No significant abnormality is appreciated. No cholelithiasis. PANCREAS: No significant abnormality is seen. SPLEEN: No significant abnormality is seen. Prominent in size but nonenlarged. ADRENALS: No significant abnormality is seen. KIDNEYS: No significant abnormality is seen. No evidence of nephrolithiasis or hydronephrosis. FREE AIR: No free air is visualized RETROPERITONEAL ADENOPATHY: None visualized REPRODUCTIVE ORGANS: No significant abnormality is seen URINARY BLADDER: No significant abnormality is seen. OSSEOUS STRUCTURES: No significant abnormality is seen. BOWEL: Proximal appendix is air-filled and within normal limits of size. Calcifications about the ap pendiceal tip and gonadal vein and is difficult to determine whether one of these is located within t he appendiceal lumen or canal vein. Distal tip of the appendix does appear to be enlarged measuring j ust over 6 mm with right adnexal lesion just inferior to this favored to represent ovarian or paraova rodolfo lesion such as hemorrhagic cyst. Follicular changes of the left ovary are also noted. No reactiv e ileus is seen. No gross evidence of adenopathy is present IMPRESSION: PROXIMAL APPENDIX IS WITHIN NORMAL LIMITS AND AIR-FILLED, HOWEVER DISTAL APPENDIX IS PROMINENT IN SIZ E AND ABUTS A RIGHT ADNEXAL LESION. FINDINGS ARE CRITICAL FOR TIP APPENDICITIS, HOWEVER RIGHT LOWER Q UADRANT PAIN IS FAVORED TO REPRESENT BILIARY LESION. PELVIC ULTRASOUND COULD BE PERFORMED FOR FURTHER EVALUATION. ADDITIONALLY IF THERE IS CLINICAL AND LABORATORY CONCERN FOR ACUTE APPENDICITIS REPEAT S HORT-TERM EXAM WITH ORAL CONTRAST COULD BE PERFORMED.
[2017-03-25 21:06] LABS: Polychromasia Present
--- NOTE | 2017-03-25 21:14 | ED ---
Abdominal Pain HPI - General Chief Complaint: Abdominal Pain Stated Complaint: lower back and RLQ pain Time Seen by Provider: 03/25/17 18:59 Source: patient Mode of arrival: ambulatory Limitations: no limitations - History of Present Illness Initial Comments: This 36-year-old white female presents with a complaint of some right lower quadrant and right flank pain. Onset occurred yesterday. She states that it was fairly severe. It was not sudden in onset. She states that she has had some mild urgency and dysuria but no frequency or hematuria. She denies any actual fevers. She states that she had her appendix out approximately 10 years ago. She apparently had a exploratory laparoscopy at that time and found that she had appendicitis and is certain that they removed her appendix. She has had some kidney stones in the past in is worried that this could be related to kidney stones as well. She also has a history of ovarian cysts remotely. She denies any possibility of as she just got done with her period 11 days ago. She has not tried anything to alleviate the pain. She denies any other complaints or modifying factors. - Related Data Home Medications Medication Instructions Recorded Confirmed Omeprazole Magnesium [Prilosec OTC] 20 mg PO DAILY 03/25/17 03/25/17 Previous Rx's Medication Instructions Recorded traMADol HCl [Ultram] 50 - 100 mg PO Q6H PRN #20 tab 03/25/17 Allergies Allergy/AdvReac Type Severity Reaction Status Date / Time cephalexin monohydrate Allergy Rash/Hives Verified 03/25/17 19:01 [From Keflex] codeine Allergy Rash/Hives Verified 03/25/17 19:01 Review of Systems ROS Statement: Those systems with pertinent positive or pertinent negative responses have been documented in the HPI. ROS Other: All systems not noted in ROS Statement are negative. Past Medical History Past Medical History: GERD/Reflux Additional Past Medical History / Comment(s): CURRENT: MULTIPLE EC VISIT AND TESTING FOR ABD PAIN, FOUND TO HAVE KIDNEY STONE (RIGHT). History of Any Multi-Drug Resistant Organisms: None Reported Past Surgical History: Appendectomy, Orthopedic Surgery Additional Past Surgical History / Comment(s): Left knee surgery Past Anesthesia/Blood Transfusion Reactions: No Reported Reaction Past Psychological History: Depression Smoking Status: Current every day smoker Past Alcohol Use History: Occasional Past Drug Use History: Marijuana - Past Family History Mother Family Medical History: Diabetes Mellitus Brother(s) Family Medical History: Diabetes Mellitus General Exam - General Exam Comments Initial Comments: GENERAL: The patient is well nourished and well hydrated. VITAL SIGNS: Heart rate, blood pressure, respiratory rate reviewed as recorded in nurse's notes. EYES: Pupils are round and reactive. Extraocular movements are intact. No conjunctival / lid redness or swelling. ENT: No external evidence of injury, swelling, or ecchymosis. Airway is patent. Throat is clear. NECK: Nontender. No swelling or evidence of injury. No subcutaneous emphysema. Trachea is midline. No thyroid mass. HEART: Regular rate and rhythm. Good peripheral pulses. LUNGS/CHEST: Breath sounds clear and equal bilaterally. No rales, rhonchi, or wheezes. No ecchymosis, subcutaneous emphysema, or tenderness. ABDOMEN: There is some slight tenderness present into the right lower quadrant and also into the right flank. No palpable masses or organomegaly. No peritoneal signs. No abdominal wall swelling or ecchymosis. EXTREMITIES: No extremity tenderness. Normal muscle tone and function. No thoracolumbar tenderness. NEUROLOGIC: Sensation is grossly intact. Cranial nerve exam reveals face is symmetrical, tongue is midline, speech is clear. SKIN: No abrasions or ecchymosis is noted. No induration or masses noted. PSYCHIATRIC: Alert and oriented. Appropriate behavior and judgment. Limitations: no limitations Course Vital Signs 03/25/17 03/25/17 18:54 20:45 Temperature 98.9 F 98.1 F Pulse Rate 103 H 89 Respiratory 20 18 Rate Blood Pressure 121/63 108/62 O2 Sat by Pulse 98 96 Oximetry Medical Decision Making - Medical Decision Making The patient was seen and examined. All diagnostics were reviewed. The patient had a urinalysis which does not show any signs of infection. She also had a laboratory workup which shows some slight elevation of her liver function studies. This is consistent with previous laboratory evaluation and is apparently due to her history of alcohol abuse. It is essentially unchanged from previous. She also has a slight hypokalemia which appears chronic as well with a potassium of 3.2. The remainder of labs have some minor abnormalities. The computed tomography scan of the abdomen and pelvis shows evidence of a likely right ovarian hemorrhagic cyst. The radiologist notes a possible appendicitis however patient has had appendicitis with appendectomy in the past. Old CTs are reviewed and previous CT report notes that there are changes consistent with surgical removal of the appendix. In addition, the patient does not have any leukocytosis and there is no fever. Her symptoms seem consistent with a right ovarian cyst. She does receive IV fluids as well as some Toradol and Dilaudid. She is feeling much improved on recheck. Is felt as though she is stable for discharge and close follow-up with her doctor. - Lab Data Result diagrams: 03/25/17 19:30 03/25/17 19:30 Lab Results 03/25/17 03/25/17 03/25/17 Range/Units 19:30 19:30 19:30 WBC 3.5 L (3.8-10.6) k/uL RBC 3.32 L (3.80-5.40) m/uL Hgb 13.3 (11.4-16.0) gm/dL Hct 38.4 (34.0-46.0) % MCV 115.9 H (80.0-100.0) fL MCH 40.0 H (25.0-35.0) pg MCHC 34.5 (31.0-37.0) g/dL RDW 13.4 (11.5-15.5) % Plt Count 111 L (150-450) k/uL Neutrophils % 65 % Lymphocytes % 27 % Monocytes % 5 % Eosinophils % 3 % Basophils % 0 % Neutrophils # 2.3 (1.3-7.7) k/uL Lymphocytes # 0.9 L (1.0-4.8) k/uL Monocytes # 0.2 (0-1.0) k/uL Eosinophils # 0.1 (0-0.7) k/uL Basophils # 0.0 (0-0.2) k/uL Polychromasia Present Macrocytosis Marked Sodium 141 (137-145) mmol/L Potassium 3.3 L (3.5-5.1) mmol/L Chloride 104 (98-107) mmol/L Carbon Dioxide 26 (22-30) mmol/L Anion Gap 11 mmol/L BUN 2 L (7-17) mg/dL Creatinine 0.47 L (0.52-1.04) mg/dL Est GFR (MDRD) Af Amer >60 (>60 ml/min/1.73 sqM) Est GFR (MDRD) Non-Af >60 (>60 ml/min/1.73 sqM) Glucose 94 (74-99) mg/dL Calcium 8.9 (8.4-10.2) mg/dL Total Bilirubin 0.7 (0.2-1.3) mg/dL AST 177 H (14-36) U/L ALT 62 H (9-52) U/L Alkaline Phosphatase 228 H (38-126) U/L Total Protein 7.1 (6.3-8.2) g/dL Albumin 4.0 (3.5-5.0) g/dL Urine Color Urine Appearance (Clear) Urine pH (5.0-8.0) Ur Specific Bryan (1.001-1.035) Urine Protein (Negative) Urine Glucose (UA) (Negative) Urine Ketones (Negative) Urine Blood (Negative) Urine Nitrite (Negative) Urine Bilirubin (Negative) Urine Urobilinogen (<2.0) mg/dL Ur Leukocyte Esterase (Negative) Urine RBC (0-5) /hpf Urine WBC (0-5) /hpf Ur Squamous Epith Cells (0-4) /hpf Urine Bacteria (None) /hpf Urine Mucus (None) /hpf Urine HCG, Qual Not Detected (Not Detectd) 03/25/17 Range/Units 19:30 WBC (3.8-10.6) k/uL RBC (3.80-5.40) m/uL Hgb (11.4-16.0) gm/dL Hct (34.0-46.0) % MCV (80.0-100.0) fL MCH (25.0-35.0) pg MCHC (31.0-37.0) g/dL RDW (11.5-15.5) % Plt Count (150-450) k/uL Neutrophils % % Lymphocytes % % Monocytes % % Eosinophils % % Basophils % % Neutrophils # (1.3-7.7) k/uL Lymphocytes # (1.0-4.8) k/uL Monocytes # (0-1.0) k/uL Eosinophils # (0-0.7) k/uL Basophils # (0-0.2) k/uL Polychromasia Macrocytosis Sodium (137-145) mmol/L Potassium (3.5-5.1) mmol/L Chloride (98-107) mmol/L Carbon Dioxide (22-30) mmol/L Anion Gap mmol/L BUN (7-17) mg/dL Creatinine (0.52-1.04) mg/dL Est GFR (MDRD) Af Amer (>60 ml/min/1.73 sqM) Est GFR (MDRD) Non-Af (>60 ml/min/1.73 sqM) Glucose (74-99) mg/dL Calcium (8.4-10.2) mg/dL Total Bilirubin (0.2-1.3) mg/dL AST (14-36) U/L ALT (9-52) U/L Alkaline Phosphatase (38-126) U/L Total Protein (6.3-8.2) g/dL Albumin (3.5-5.0) g/dL Urine Color Yellow Urine Appearance Cloudy H (Clear) Urine pH 6.5 (5.0-8.0) Ur Specific Bryan 1.012 (1.001-1.035) Urine Protein Negative (Negative) Urine Glucose (UA) Negative (Negative) Urine Ketones Negative (Negative) Urine Blood Negative (Negative) Urine Nitrite Negative (Negative) Urine Bilirubin Negative (Negative) Urine Urobilinogen 2.0 (<2.0) mg/dL Ur Leukocyte Esterase Negative (Negative) Urine RBC 1 (0-5) /hpf Urine WBC 1 (0-5) /hpf Ur Squamous Epith Cells 4 (0-4) /hpf Urine Bacteria Rare H (None) /hpf Urine Mucus Rare H (None) /hpf Urine HCG, Qual (Not Detectd) Disposition Clinical Impression: Abdominal pain, Right ovarian cyst, Hypokalemia Disposition: HOME SELF-CARE Condition: Good Instructions: Abdominal Pain (ED), Ovarian Cyst (ED) Prescriptions: traMADol HCl [Ultram] 50 - 100 mg PO Q6H PRN #20 tab PRN Reason: Pain Referrals: Cecil Cárdenas MD [Primary Care Provider] - 1-2 days Time of Disposition: 21:12
== END 2017-03-25 21:27 | disposition home or self-care (01) ==
LOC: EC 18:49
DX: N83.201 Unspecified ovarian cyst, right side (principal); E87.6 Hypokalemia; R94.5 Abnormal results of liver function studies; K21.9 Gastro-esophageal reflux disease without esophagitis; F17.200 Nicotine dependence, unspecified, uncomplicated; Z90.49 Acquired absence of other specified parts of digestive tract; Z87.442 Personal history of urinary calculi; Z88.1 Allergy status to other antibiotic agents; Z88.5 Allergy status to narcotic agent; Z79.899 Other long term (current) drug therapy
CPT/HCPCS: 36415; 80053; 85025; 81001; 81025; 74176; 99284; 96374; 96375; 96361 ×2; J1885; J1170

== ENCOUNTER → 2017-04-09 | Outpatient (CLI) | payer OTHER ==
--- NOTE | 2017-04-10 07:08 | US ---
EXAMINATION TYPE: US transvaginal DATE OF EXAM: 04/09/2017 COMPARISON: NONE CLINICAL HISTORY: R10.2 Pelvic Pain,n83.20 past ovarian cyst. Pelvic pain, light menses TECHNIQUE: Transvaginal (TV) Date of LMP: 04/05/17 EXAM MEASUREMENTS: Uterus: 6.0 x 3.4 x 4.0 cm Endometrial Stripe: 0.6 cm Right Ovary: unable to visualize Left Ovary: 2.6 x 1.2 x 1.3 cm 1. Uterus: Anteverted Nabothian cysts 2. Endometrium: appears wnl 3. Right Ovary: Obscured by overlying bowel gas 4. Left Ovary: limited evaluation due to overlying bowel content, appear wnl 5. Bilateral Adnexa: wnl 6. Posterior cul-de-sac: wnl IMPRESSION: Slightly limited exam with nonvisualization of the right ovary. Otherwise unremarkable wi th no evidence of left ovarian cysts, normal endometrial thickness, and unremarkable uterine myometri um.
--- NOTE | 2017-04-10 08:34 | WWHP ---
[facility] - HISTORY AND PHYSICAL DATE OF SERVICE: 04/09/2017 Please have a copy sent to Dr. Cárdenas. CHIEF COMPLAINT: Right lower quadrant and right pelvic pain which has become worse during the past 2 weeks. HPI: This is a 36-year-old, G3, P1-0-1 with an LMP of 04/05/2017. She has been using withdrawal for control. She states she was in the emergency room on 03/25/2017. This was because of right lower quadrant and right pelvic pain, which became much worse. She states she has had issues with right lower quadrant and right pelvic pain for more than 2 years[address] She had a CT scan of the abdomen and pelvis which was done without contrast. She was told she had a pelvic cyst that may be causing the pain and was discharged home with tramadol. She states this did not seem to help with the pain. She states the pain is a very achy, dull pain that can also become very sharp. She states it often does feel like a stabbing kind of pain and can be rated at 8 out of 10 when it is a stabbing pain. She states her periods are generally regular every month, lasting 3-5 days. 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 She has had multiple CT scans because of the abdominal and pelvic pains over the past few years. She also notices pain with sexual intercourse. PAST MEDICAL HISTORY: Depression and kidney stones. MEDICATIONS: 1. Tylenol p.r.n. 2. Omeprazole [id number] b.i.d. 3. She also had been using tramadol as directed. ALLERGIES: TO CODEINE AND KEFLEX, BOTH OF THESE CAUSE RASHES. PAST SURGICAL HISTORY: Past surgical history 4 knee surgeries in the past, appendectomy approximately 2003, some surgery for a cyst in the past. PAST OB HISTORY: She did have a voluntary termination of and did have a vaginal delivery in approximately 2007. Also one spontaneous in 2013. 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 SOCIAL HISTORY: She smokes about 3/4 of pack of cigarettes per day and this is down from 2 packs of cigarettes per day in the past. She admits to about 2 alcohol containing drinks per day and does use marijuana. She denies any other drug use. 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 She has been with her boyfriend since approximately 2001 and does live with him. FAMILY HISTORY: Diabetes in parents, brother and grandmother. REVIEW OF SYSTEMS: Weight has been stable. She denies respiratory or cardiac problems. GI: She does have issues with constipation that can often turn to loose stools. She did have one emesis this morning. PHYSICAL EXAM: Blood pressure 110/64, height 5 feet 1 inch, weight 105 pounds, temperature 96.5, pulse 89. This is a well-developed, well-nourished, white female who is alert and oriented x3, in no acute distress. HEENT: Within normal limits. NECK: Supple without mass or thyromegaly. Chest. LUNGS: Clear to auscultation. Heart mild tachycardia. Breasts are without mass or discharge. Axillary exam is negative for adenopathy. Back negative for CVA tenderness. ABDOMEN: Soft with 2+ bowel sounds. There is moderate right lower quadrant tenderness without rebound tenderness. There are no palpable abdominal masses. Pelvic exam normal external genitalia. Cervix and vagina reveal just a scant amount of menstrual type blood. There is no unusual discharge and no odor. There is minimal cervical motion tenderness. The uterus is mildly tender in mid position nongravid size. There is moderate right adnexal tenderness without palpable discrete mass. The left adnexal is nontender and there are no palpable masses. Rectal exam was deferred. EXTREMITIES: Nontender. DIAGNOSTIC STUDIES: CT scan of the abdomen and pelvis without contrast done on 03/25/17, was reviewed with Dr. Graham. There is a possibility of an appendix stump. There is a right adnexal mass measuring approximately 4 cm in size. The patient also had previous CT scans of the abdomen and pelvis. CT scan was done about 6 months ago, which also showed the right adnexal mass. Additional studies done in the emergency room on 03/25/17, included a negative urine HCG. White blood cell count of 3.5, hemoglobin 13.3, AST of 177 which is elevated and ALT of 62, which is also elevated. Alkaline phosphatase is 228, which is also elevated. IMPRESSION: 1. A 36-year-old with right lower quadrant and right pelvic pain. This seems to be somewhat chronic since she has had it for a couple of years but has become more acute in the past 2 weeks. 2. Right adnexal mass measuring approximately 4 cm. Differential diagnosis will include right ovarian endometrioma, hemorrhagic cyst, chronic abscess, other right ovarian neoplasm, and less likely chronic appendicitis of the appendiceal stump. Infections such as PID or tubo-ovarian abscess is less likely given the white blood cell count is not elevated and she is afebrile. PLAN: 1. Pap smear was performed. 2. Pelvic ultrasound will be done today. 3. GC and chlamydia testing from the cervix have been obtained. 4. After reviewing the ultrasound, I will consider referral for possible laparoscopic examination and possible removal of the right adnexal mass. Total time spent with the patient 50 minutes. MMODL / IJN: [id number] /
== END ==
LOC: WWCWWP 14:36
PROVIDERS: ATTEND Obstetrics & Gynecology
DX: R10.2 Pelvic and perineal pain (principal)
CPT/HCPCS: 76830; 87491; 87591

== ENCOUNTER 2017-04-26 15:09 | Emergency (ER) | payer OTHER ==
[2017-04-26] MEDS ORDERED: DICYCLOMINE 10 MG/ML 2 ML AMP IM STA (15:23)
[2017-04-26] MEDS ORDERED: KETOROLAC 30 MG/ML 1 ML VIAL IVP STA (15:23)
[2017-04-26] MEDS ORDERED: SODIUM CHLORIDE 0.9% 1,000 ML IV STA (15:23)
--- NOTE | 2017-04-26 15:25 | ED ---
General Adult HPI - General Chief complaint: Abdominal Pain Stated complaint: Back Pain Time Seen by Provider: 04/26/17 15:17 Source: patient, RN notes reviewed Mode of arrival: ambulatory Limitations: no limitations - History of Present Illness Initial comments: 36-year-old female presents to the emergency Department chief complaint abdominal pain. Patient states she was just discharged from the hospital 2 days ago with diagnosis colitis on antibiotics. Patient states that she does not feel her when she was discharged and she continues to have the same pain. She now she should start first ureter come back. She denies any nausea vomiting or diarrhea. She states that her abdomen just. Patient states that she was concerned due to the continued pain so she thought that she should be seen.Patient denies any recent fever, chills, shortness of breath, chest pain, back pain, nausea vomiting, numbness or tingling, dysuria or hematuria, constipation or diarrhea, headaches or visual changes, or any other current symptoms. - Related Data Home Medications Medication Instructions Recorded Confirmed Omeprazole Magnesium [Prilosec OTC] 20 mg PO DAILY 03/25/17 04/26/17 Acetaminophen/Diphenhydramine 1 tab PO HS 04/22/17 04/26/17 [Tylenol PM 500-25mg] Previous Rx's Medication Instructions Recorded Ciprofloxacin HCl [Cipro] 500 mg PO Q12HR #8 tablet 04/24/17 Folic Acid 1 mg PO DAILY #30 tablet 04/24/17 LORazepam [Ativan] 0.5 mg PO Q8H PRN #20 tab 04/24/17 Multivitamins, Thera [Multivitamin 1 tab PO DAILY #30 tablet 04/24/17 (formulary)] Thiamine [Vitamin B-1] 100 mg PO DAILY #30 tablet 04/24/17 metroNIDAZOLE [Flagyl] 500 mg PO TID #12 tab 04/24/17 Dicyclomine [Bentyl] 10 mg PO TID #20 capsule 04/26/17 Hydrocodone/Acetaminophen [[place] 1 each PO Q6HR PRN #5 tab 04/26/17 5-325] Ondansetron Odt [Zofran ODT] 4 mg PO Q8HR PRN #20 tab 04/26/17 Allergies Allergy/AdvReac Type Severity Reaction Status Date / Time cephalexin monohydrate Allergy Rash/Hives Verified 04/26/17 15:43 [From Keflex] codeine Allergy Rash/Hives Verified 04/26/17 15:43 Review of Systems ROS Statement: Those systems with pertinent positive or pertinent negative responses have been documented in the HPI. ROS Other: All systems not noted in ROS Statement are negative. Past Medical History Past Medical History: GERD/Reflux Additional Past Medical History / Comment(s): CURRENT: MULTIPLE EC VISIT AND TESTING FOR ABD PAIN, FOUND TO HAVE KIDNEY STONE (RIGHT), ovarian cyst History of Any Multi-Drug Resistant Organisms: None Reported Past Surgical History: Appendectomy, Orthopedic Surgery Additional Past Surgical History / Comment(s): Left knee surgery Past Anesthesia/Blood Transfusion Reactions: No Reported Reaction Past Psychological History: Depression Smoking Status: Current every day smoker Past Alcohol Use History: Occasional Past Drug Use History: Marijuana - Past Family History Mother Family Medical History: Diabetes Mellitus Brother(s) Family Medical History: Diabetes Mellitus General Exam - General Exam Comments Initial Comments: General: The patient is awake and alert, in no distress, and does not appear acutely ill. Eye: Pupils are equal, round and reactive to light, extra-ocular movements are intact; there is normal conjunctiva bilaterally. No signs of icterus. Ears, nose, mouth and throat: There are moist mucous membranes. Neck: The neck is supple, there is no tenderness. Cardiovascular: There is a regular rate and rhythm. No murmur, rub or gallop is appreciated. Respiratory: Lungs are clear to auscultation, respirations are non-labored, breath sounds are equal. No wheezes, stridor, rales, or rhonchi. Gastrointestinal: Soft, non-distended, non-tender abdomen without masses or organomegaly noted. There is no rebound or guarding present. No CVA tenderness. Bowel sounds are unremarkable. Back: There is no tenderness to palpation in the midline. There is no obvious deformity. No rashes noted. Musculoskeletal: Normal ROM, no tenderness, There is no pedal edema. There is no calf tenderness or swelling. Sensation intact. Pulses equal bilaterally 2+. Neurological: CN II-XII intact, There are no obvious motor or sensory deficits. Coordination appears grossly intact. Speech is normal. Skin: Skin is warm and dry and no rashes or lesions are noted. Psychiatric: Cooperative, appropriate mood & affect, normal judgment. Limitations: no limitations Course Vital Signs 04/26/17 04/26/17 15:12 16:36 Temperature 97.8 F 98.7 F Pulse Rate 125 H 115 H Respiratory 16 18 Rate Blood Pressure 110/68 99/68 O2 Sat by Pulse 97 99 Oximetry Medical Decision Making - Medical Decision Making 36-year-old female presents emergency department with a chief complaint of abdominal pain. This time lab work is been reviewed. Patient's lactic is trending down from first initial stay. Laboratories. Be stable from a few days ago. This time we discussion to continue to use the antibiotics. We discussed we will give her nausea meds and pain medication for home. We discussion stop with GI. We discussed return parameters all the questions. She stated that she understood and she is in agreement this plan. At this time on questions have been answered. She will be discharged. - Lab Data Result diagrams: 04/26/17 15:35 04/26/17 15:35 Lab Results 04/26/17 04/26/17 04/26/17 Range/Units 15:35 15:35 15:35 WBC 3.7 L (3.8-10.6) k/uL RBC 3.00 L (3.80-5.40) m/uL Hgb 11.5 (11.4-16.0) gm/dL Hct 36.1 (34.0-46.0) % MCV 120.1 H (80.0-100.0) fL MCH 38.4 H (25.0-35.0) pg MCHC 32.0 (31.0-37.0) g/dL RDW 14.5 (11.5-15.5) % Plt Count 102 L (150-450) k/uL Neutrophils % 75 % Lymphocytes % 18 % Monocytes % 4 % Eosinophils % 2 % Basophils % 0 % Neutrophils # 2.8 (1.3-7.7) k/uL Lymphocytes # 0.7 L (1.0-4.8) k/uL Monocytes # 0.2 (0-1.0) k/uL Eosinophils # 0.1 (0-0.7) k/uL Basophils # 0.0 (0-0.2) k/uL Macrocytosis Marked Sodium 137 (137-145) mmol/L Potassium 3.4 L (3.5-5.1) mmol/L Chloride 106 (98-107) mmol/L Carbon Dioxide 21 L (22-30) mmol/L Anion Gap 10 mmol/L BUN <2 L (7-17) mg/dL Creatinine 0.50 L (0.52-1.04) mg/dL Est GFR (MDRD) Af Amer >60 (>60 ml/min/1.73 sqM) Est GFR (MDRD) Non-Af >60 (>60 ml/min/1.73 sqM) Glucose 86 (74-99) mg/dL Plasma Lactic Acid Paulino 2.3 H* (0.7-2.0) mmol/L Calcium 8.1 L (8.4-10.2) mg/dL Total Bilirubin 1.4 H (0.2-1.3) mg/dL AST 115 H (14-36) U/L ALT 26 (9-52) U/L Alkaline Phosphatase 172 H (38-126) U/L Total Protein 6.0 L (6.3-8.2) g/dL Albumin 3.0 L (3.5-5.0) g/dL Urine Color Urine Appearance (Clear) Urine pH (5.0-8.0) Ur Specific [place] (1.001-1.035) Urine Protein (Negative) Urine Glucose (UA) (Negative) Urine Ketones (Negative) Urine Blood (Negative) Urine Nitrite (Negative) Urine Bilirubin (Negative) Urine Urobilinogen (<2.0) mg/dL Ur Leukocyte Esterase (Negative) Urine RBC (0-5) /hpf Urine WBC (0-5) /hpf Ur Squamous Epith Cells (0-4) /hpf Hyaline Casts (0-2) /lpf Urine Mucus (None) /hpf Urine HCG, Qual (Not Detectd) 04/26/17 04/26/17 Range/Units 15:35 15:35 WBC (3.8-10.6) k/uL RBC (3.80-5.40) m/uL Hgb (11.4-16.0) gm/dL Hct (34.0-46.0) % MCV (80.0-100.0) fL MCH (25.0-35.0) pg MCHC (31.0-37.0) g/dL RDW (11.5-15.5) % Plt Count (150-450) k/uL Neutrophils % % Lymphocytes % % Monocytes % % Eosinophils % % Basophils % % Neutrophils # (1.3-7.7) k/uL Lymphocytes # (1.0-4.8) k/uL Monocytes # (0-1.0) k/uL Eosinophils # (0-0.7) k/uL Basophils # (0-0.2) k/uL Macrocytosis Sodium (137-145) mmol/L Potassium (3.5-5.1) mmol/L Chloride (98-107) mmol/L Carbon Dioxide (22-30) mmol/L Anion Gap mmol/L BUN (7-17) mg/dL Creatinine (0.52-1.04) mg/dL Est GFR (MDRD) Af Amer (>60 ml/min/1.73 sqM) Est GFR (MDRD) Non-Af (>60 ml/min/1.73 sqM) Glucose (74-99) mg/dL Plasma Lactic Acid Paulino (0.7-2.0) mmol/L Calcium (8.4-10.2) mg/dL Total Bilirubin (0.2-1.3) mg/dL AST (14-36) U/L ALT (9-52) U/L Alkaline Phosphatase (38-126) U/L Total Protein (6.3-8.2) g/dL Albumin (3.5-5.0) g/dL Urine Color Light Red Urine Appearance Cloudy H (Clear) Urine pH 6.0 (5.0-8.0) Ur Specific [place] 1.013 (1.001-1.035) Urine Protein Trace H (Negative) Urine Glucose (UA) Negative (Negative) Urine Ketones 1+ H (Negative) Urine Blood Large H (Negative) Urine Nitrite Negative (Negative) Urine Bilirubin Negative (Negative) Urine Urobilinogen <2.0 (<2.0) mg/dL Ur Leukocyte Esterase Trace H (Negative) Urine RBC >182 H (0-5) /hpf Urine WBC 89 H (0-5) /hpf Ur Squamous Epith Cells 1 (0-4) /hpf Hyaline Casts 12 H (0-2) /lpf Urine Mucus Moderate H (None) /hpf Urine HCG, Qual Not Detected (Not Detectd) Disposition Clinical Impression: Colitis Disposition: HOME SELF-CARE Condition: Stable Instructions: Colitis (ED) Additional Instructions: Please use medication as discussed. Please follow up with family doctor if symptoms have not improved over the next two days. Please return to the emergency room if your symptoms increase or worsen or for any other concerns. Please continue the antibiotics at around. Prescriptions: Dicyclomine [Bentyl] 10 mg PO TID #20 capsule Hydrocodone/Acetaminophen [[place] 5-325] 1 each PO Q6HR PRN #5 tab PRN Reason: Pain Ondansetron Odt [Zofran ODT] 4 mg PO Q8HR PRN #20 tab PRN Reason: Nausea Referrals: Cecil Cárdenas MD [Primary Care Provider] - 1-2 days Time of Disposition: 16:42
[2017-04-26 16:00] LABS: ALT 26 U/L (9-52); AST 115 U/L (14-36); Alkaline Phosphatase 172 U/L (38-126); Anion Gap 10 mmol/L; Blood Urea Nitrogen <2 mg/dL (7-17); Calcium 8.1 mg/dL (8.4-10.2); Carbon Dioxide 21 mmol/L (22-30); Chloride 106 mmol/L (98-107); Glucose 86 mg/dL (74-99); Non-African American GFR(MDRD) >60 (>60 ml/min/1.73 sqM); Sodium 137 mmol/L (137-145); Total Bilirubin 1.4 mg/dL (0.2-1.3)
[2017-04-26 16:02] LABS: Appearance,Urine Cloudy (Clear); Bilirubin,Urine Negative (Negative); Glucose,Urine (UA) Negative (Negative); Ketones,Urine 1+ (Negative); Leukocyte Esterase,Urine Trace (Negative); Mucus,Urine Moderate /hpf; Nitrite,Urine Negative (Negative); Particle Count 8033; Potassium 3.4 mmol/L (3.5-5.1); Protein,Urine Trace (Negative); RBC,Urine >182 /hpf (0-5); Specific Gravity,Urine 1.013 (1.001-1.035); Squamous Epithelial Cell,Urine 1 /hpf (0-4); UA Billing (MACRO vs. MICRO) MICRO; Urobilinogen,Urine <2.0 mg/dL (<2.0); WBC,Urine 89 /hpf (0-5)
[2017-04-26 16:18] LABS: Basophils % (A) 0 %; CH 39.4; Eosinophils # (A) 0.1 k/uL (0-0.7); Eosinophils % (A) 2 %; HCT 36.1 % (34.0-46.0); HDW 2.79; HGB 11.5 gm/dL (11.4-16.0); Luc # (Auto) 0.02; Luc % (Auto) 1; Lymphocytes # (A) 0.7 k/uL (1.0-4.8); Lymphocytes % (A) 18 %; MCH 38.4 pg (25.0-35.0); MCV 120.1 fL (80.0-100.0); Macrocytosis Marked; Mean Platelet Volume 8.6; Monocytes # (A) 0.2 k/uL (0-1.0); Monocytes % (A) 4 %; Neutrophils # (A) 2.8 k/uL (1.3-7.7); Neutrophils % (A) 75 %; RDW 14.5 % (11.5-15.5); WBC 3.7 k/uL (3.8-10.6)
[2017-04-26 16:37] VITALS: RESP 18
[2017-04-26] MEDS ORDERED: HYDROmorphone 1 MG/ML 1 ML SYRINGE IVP STA (16:37)
[2017-04-26 17:07] VITALS: BP 101/55; PULSE 99; TEMP 97.4
== END 2017-04-26 17:07 | disposition home or self-care (01) ==
LOC: EC 15:09
DX: K52.9 Noninfective gastroenteritis and colitis, unspecified (principal); K21.9 Gastro-esophageal reflux disease without esophagitis; F17.200 Nicotine dependence, unspecified, uncomplicated; Z79.891 Long term (current) use of opiate analgesic; Z79.899 Other long term (current) drug therapy; Z88.1 Allergy status to other antibiotic agents; Z88.5 Allergy status to narcotic agent; Z90.49 Acquired absence of other specified parts of digestive tract
CPT/HCPCS: 99284 ×2; 96374 ×2; 96375 ×2; 96361 ×2; 96372 ×2; 36415; 80053; 83605; 85025; 81001; 81025; J0500; J1885; J1170

== ENCOUNTER 2017-06-28 08:10 | Emergency (ER) | payer OTHER ==
[2017-06-28 08:20] VITALS: BP 115/75; PULSE 83; RESP 20; TEMP 99
[2017-06-28] MEDS ORDERED: KETOROLAC 30 MG/ML 1 ML VIAL ONE (09:05)
--- NOTE | 2017-06-28 09:06 | ED ---
General Adult HPI - General Chief complaint: Abdominal Pain Stated complaint: Abd pain Time Seen by Provider: 06/28/17 08:25 Source: patient, RN notes reviewed Mode of arrival: ambulatory Limitations: no limitations - History of Present Illness Initial comments: Patient 36-year-old female who presents emergency room today with a chief complaint of increased left lower quadrant pain. Does not that she was recently told that she had an ovarian cyst. States that the pain increased today. States that it is is sharp pain located left lower quadrant. Also admits to a fall that occurred 5 days ago. States she fell down a few steps hitting her lower back and a left side. She denies any other complaints or symptoms. Patient denies any recent fever, chills, shortness of breath, chest pain, vomiting, numbness or tingling, dysuria or hematuria, constipation or diarrhea, headaches or visual changes, or any other complaints. - Related Data Home Medications Medication Instructions Recorded Confirmed Acetaminophen/Diphenhydramine 1 tab PO HS PRN 04/22/17 06/28/17 [Tylenol PM 500-25mg] Hydrocodone/Acetaminophen [[place] 1 tab PO Q6HR PRN 05/03/17 06/28/17 5-325] Melatonin 10 mg PO HS PRN 05/03/17 06/28/17 Famotidine [Pepcid] 20 mg PO DAILY 06/28/17 06/28/17 Previous Rx's Medication Instructions Recorded Folic Acid 1 mg PO DAILY #30 tablet 04/24/17 LORazepam [Ativan] 0.5 mg PO Q8H PRN #20 tab 04/24/17 Multivitamins, Thera [Multivitamin 1 tab PO DAILY #30 tablet 04/24/17 (formulary)] Thiamine [Vitamin B-1] 100 mg PO DAILY #30 tablet 04/24/17 Dicyclomine [Bentyl] 10 mg PO TID #20 capsule 04/26/17 Ondansetron Odt [Zofran ODT] 4 mg PO Q8HR PRN #20 tab 04/26/17 Allergies Allergy/AdvReac Type Severity Reaction Status Date / Time cephalexin monohydrate Allergy Rash/Hives Verified 06/28/17 08:46 [From Keflex] codeine Allergy Rash/Hives Verified 06/28/17 08:46 Review of Systems ROS Statement: Those systems with pertinent positive or pertinent negative responses have been documented in the HPI. ROS Other: All systems not noted in ROS Statement are negative. Past Medical History Past Medical History: GERD/Reflux Additional Past Medical History / Comment(s): CURRENT: MULTIPLE EC VISIT AND TESTING FOR ABD PAIN, FOUND TO HAVE KIDNEY STONE (RIGHT), ovarian cyst History of Any Multi-Drug Resistant Organisms: None Reported Past Surgical History: Appendectomy, Orthopedic Surgery Additional Past Surgical History / Comment(s): Left knee surgery Past Anesthesia/Blood Transfusion Reactions: No Reported Reaction Past Psychological History: Depression Smoking Status: Current every day smoker Past Alcohol Use History: Occasional Past Drug Use History: Marijuana - Past Family History Mother Family Medical History: Diabetes Mellitus Brother(s) Family Medical History: Diabetes Mellitus Father Family Medical History: Hypertension Additional Family Medical History / Comment(s[facility] General Exam - General Exam Comments Initial Comments: General: The patient is awake and alert, in no distress, and does not appear acutely ill. Eye: Pupils are equal, round and reactive to light, extra-ocular movements are intact. No nystagmus. There is normal conjunctiva bilaterally. No signs of icterus. Ears, nose, mouth and throat: There are moist mucous membranes and no oral lesions. Neck: The neck is supple, there is no tenderness or JVD. Cardiovascular: There is a regular rate and rhythm. No murmur, rub or gallop is appreciated. Respiratory: Lungs are clear to auscultation, respirations are non-labored, breath sounds are equal. No wheezes, stridor, rales, or rhonchi. Gastrointestinal: Normal appearance abdomen. Normal bowel sounds. Soft on palpation. Patient does have tenderness to the left lower quadrant on exam. Mild tenderness to the left CVA. Musculoskeletal: Normal ROM, no tenderness. Strength 5/5. Sensation intact. Pulses equal bilaterally 2+. Neurological: A&O x 3. CN II-XII intact, There are no obvious motor or sensory deficits. Coordination appears grossly intact. Speech is normal. Skin: Skin is warm and dry and no rashes or lesions are noted. Psychiatric: Cooperative, appropriate mood & affect, normal judgment. Limitations: no limitations Course Vital Signs 06/28/17 08:14 Temperature 99.0 F Pulse Rate 83 Respiratory 20 Rate Blood Pressure 115/75 O2 Sat by Pulse 100 Oximetry Medical Decision Making - Lab Data Result diagrams: 06/28/17 09:05 06/28/17 09:05 Lab Results 06/28/17 06/28/17 06/28/17 Range/Units 08:57 08:57 09:05 WBC (3.8-10.6) k/uL RBC (3.80-5.40) m/uL Hgb (11.4-16.0) gm/dL Hct (34.0-46.0) % MCV (80.0-100.0) fL MCH (25.0-35.0) pg MCHC (31.0-37.0) g/dL RDW (11.5-15.5) % Plt Count (150-450) k/uL Neutrophils % % Lymphocytes % % Monocytes % % Eosinophils % % Basophils % % Neutrophils # (1.3-7.7) k/uL Lymphocytes # (1.0-4.8) k/uL Monocytes # (0-1.0) k/uL Eosinophils # (0-0.7) k/uL Basophils # (0-0.2) k/uL Manual Slide Review Hypochromasia Poikilocytosis (manual Anisocytosis Macrocytosis Sodium 143 (137-145) mmol/L Potassium 4.0 (3.5-5.1) mmol/L Chloride 110 H (98-107) mmol/L Carbon Dioxide 23 (22-30) mmol/L Anion Gap 10 mmol/L BUN 6 L (7-17) mg/dL Creatinine 0.43 L (0.52-1.04) mg/dL Est GFR (MDRD) Af Amer >60 (>60 ml/min/1.73 sqM) Est GFR (MDRD) Non-Af >60 (>60 ml/min/1.73 sqM) Glucose 103 H (74-99) mg/dL Calcium 9.1 (8.4-10.2) mg/dL Total Bilirubin 0.6 (0.2-1.3) mg/dL AST 157 H (14-36) U/L ALT 45 (9-52) U/L Alkaline Phosphatase 177 H (38-126) U/L Total Protein 6.8 (6.3-8.2) g/dL Albumin 3.7 (3.5-5.0) g/dL Amylase 40 (30-110) U/L Lipase 115 (23-300) U/L Urine Color Yellow Urine Appearance Cloudy H (Clear) Urine pH 5.5 (5.0-8.0) Ur Specific [place] 1.014 (1.001-1.035) Urine Protein Trace H (Negative) Urine Glucose (UA) Negative (Negative) Urine Ketones Negative (Negative) Urine Blood Negative (Negative) Urine Nitrite Negative (Negative) Urine Bilirubin Negative (Negative) Urine Urobilinogen <2.0 (<2.0) mg/dL Ur Leukocyte Esterase Negative (Negative) Ur Squamous Epith Cells 12 H (0-4) /hpf Urine Mucus Few H (None) /hpf Urine HCG, Qual Not Detected (Not Detectd) 06/28/17 Range/Units 09:05 WBC 2.7 L (3.8-10.6) k/uL RBC 3.02 L (3.80-5.40) m/uL Hgb 10.6 L (11.4-16.0) gm/dL Hct 33.1 L (34.0-46.0) % MCV 109.7 H D (80.0-100.0) fL MCH 35.2 H (25.0-35.0) pg MCHC 32.1 (31.0-37.0) g/dL RDW 16.6 H (11.5-15.5) % Plt Count 102 L (150-450) k/uL Neutrophils % 74 % Lymphocytes % 20 % Monocytes % 4 % Eosinophils % 2 % Basophils % 1 % Neutrophils # 2.0 (1.3-7.7) k/uL Lymphocytes # 0.5 L (1.0-4.8) k/uL Monocytes # 0.1 (0-1.0) k/uL Eosinophils # 0.1 (0-0.7) k/uL Basophils # 0.0 (0-0.2) k/uL Manual Slide Review Performed Hypochromasia Slight Poikilocytosis (manual Present Anisocytosis Slight Macrocytosis Marked Sodium (137-145) mmol/L Potassium (3.5-5.1) mmol/L Chloride (98-107) mmol/L Carbon Dioxide (22-30) mmol/L Anion Gap mmol/L BUN (7-17) mg/dL Creatinine (0.52-1.04) mg/dL Est GFR (MDRD) Af Amer (>60 ml/min/1.73 sqM) Est GFR (MDRD) Non-Af (>60 ml/min/1.73 sqM) Glucose (74-99) mg/dL Calcium (8.4-10.2) mg/dL Total Bilirubin (0.2-1.3) mg/dL AST (14-36) U/L ALT (9-52) U/L Alkaline Phosphatase (38-126) U/L Total Protein (6.3-8.2) g/dL Albumin (3.5-5.0) g/dL Amylase (30-110) U/L Lipase (23-300) U/L Urine Color Urine Appearance (Clear) Urine pH (5.0-8.0) Ur Specific [place] (1.001-1.035) Urine Protein (Negative) Urine Glucose (UA) (Negative) Urine Ketones (Negative) Urine Blood (Negative) Urine Nitrite (Negative) Urine Bilirubin (Negative) Urine Urobilinogen (<2.0) mg/dL Ur Leukocyte Esterase (Negative) Ur Squamous Epith Cells (0-4) /hpf Urine Mucus (None) /hpf Urine HCG, Qual (Not Detectd) Disposition Clinical Impression: Ovarian cyst Disposition: HOME SELF-CARE Condition: Stable Referrals: Cecil Cárdenas MD [Primary Care Provider] - 1-2 days
[2017-06-28 09:14] LABS: Appearance,Urine Cloudy (Clear); Bilirubin,Urine Negative (Negative); Blood,Urine Negative (Negative); Color,Urine Yellow; Glucose,Urine (UA) Negative (Negative); Ketones,Urine Negative (Negative); Leukocyte Esterase,Urine Negative (Negative); Mucus,Urine Few /hpf; Nitrite,Urine Negative (Negative); PH, Urine 5.5 (5.0-8.0); Protein,Urine Trace (Negative); Specific Gravity,Urine 1.014 (1.001-1.035); Squamous Epithelial Cell,Urine 12 /hpf (0-4); Urobilinogen,Urine <2.0 mg/dL (<2.0)
[2017-06-28 09:29] LABS: Anisocytosis Slight; Basophils % (A) 1 %; Eosinophils # (A) 0.1 k/uL (0-0.7); Eosinophils % (A) 2 %; HCT 33.1 % (34.0-46.0); HGB 10.6 gm/dL (11.4-16.0); Hypochromasia Slight; Lymphocytes # (A) 0.5 k/uL (1.0-4.8); Lymphocytes % (A) 20 %; MCH 35.2 pg (25.0-35.0); MCHC 32.1 g/dL (31.0-37.0); Macrocytosis Marked; Mean Platelet Volume 8.6; Monocytes # (A) 0.1 k/uL (0-1.0); Monocytes % (A) 4 %; Neutrophils % (A) 74 %; Platelet Count 102 k/uL (150-450); RBC 3.02 m/uL (3.80-5.40); RDW 16.6 % (11.5-15.5); WBC 2.7 k/uL (3.8-10.6)
[2017-06-28 09:30] LABS: MCV 109.7 fL (80.0-100.0)
[2017-06-28 09:38] LABS: ALT 45 U/L (9-52); AST 157 U/L (14-36); Albumin 3.7 g/dL (3.5-5.0); Alkaline Phosphatase 177 U/L (38-126); Amylase 40 U/L (30-110); Anion Gap 10 mmol/L; Blood Urea Nitrogen 6 mg/dL (7-17); Calcium 9.1 mg/dL (8.4-10.2); Carbon Dioxide 23 mmol/L (22-30); Chloride 110 mmol/L (98-107); Glucose 103 mg/dL (74-99); Lipase 115 U/L (23-300); Sodium 143 mmol/L (137-145); Total Bilirubin 0.6 mg/dL (0.2-1.3); Total Protein 6.8 g/dL (6.3-8.2)
[2017-06-28 09:59] LABS: Poikilocytosis (M) Present
--- NOTE | 2017-06-28 10:08 | XR ---
EXAMINATION TYPE: XR KUB DATE OF EXAM: 06/28/2017 COMPARISON: NONE HISTORY: Pain TECHNIQUE: Single supine KUB image of the abdomen is obtained FINDINGS: Small bowel demonstrates no evidence for dilatation or air fluid levels. Gas and fecal material is seen in non-distended colon. No convincing evidence for pneumoperitoneum. No unusual calcifications. The lung bases are clear. The osseous structures are intact. IMPRESSION: 1. Overall nonobstructive bowel gas pattern.
--- NOTE | 2017-06-28 10:09 | XR ---
EXAMINATION TYPE: XR lumbar spine 2 or 3V DATE OF EXAM: 06/28/2017 CLINICAL HISTORY: pain TECHNIQUE: Three views of the lumbar spine are submitted. COMPARISON: None. FINDINGS: There are 5 lumbar type vertebral bodies identified. The lumbar spine shows satisfactory alignment w ithout evidence of acute fracture or dislocation. Vertebral body heights are within normal limits. Disc spaces are within normal limits. The overlying soft tissue appears unremarkable. IMPRESSION: No acute fracture or dislocation is seen in the lumbar spine. ICD 10 NO FRACTURE, INITIAL EVALUATION
--- NOTE | 2017-06-28 11:11 | US ---
EXAMINATION TYPE: US transvaginal DATE OF EXAM: 06/28/2017 COMPARISON: CT 04/22/2017, US 04/09/2017 CLINICAL HISTORY: LLQ pain. History of cysts TECHNIQUE: Transvaginal (TV) Date of LMP: 06/16/2017 EXAM MEASUREMENTS: Uterus: 6.2 x 3.4 x 3.8 cm Endometrial Stripe: 0.6 cm Right Ovary: 2.6 x 1.4 x 1.2 cm Left Ovary: 4.8 x 4.2 x 3.9 cm 1. Uterus: Anteverted wnl 2. Endometrium: wnl 3. Right Ovary: wnl 4. Left Ovary: Two cystic areas visualized, largest measuring 3.2 x 3.9 x 3.6 cm Spectral, color and waveform doppler imaging shows good arterial and venous flow within the ovaries ; there is no evidence for ovarian torsion. 5. Bilateral Adnexa: wnl 6. Posterior cul-de-sac: wnl IMPRESSION: 1. 2 adjacent left ovarian cyst noted which may reflect functional ovarian cyst. Finding is new relat delmi to prior study. No evidence for torsion.
== END 2017-06-28 11:25 | disposition home or self-care (01) ==
LOC: EC 08:10
DX: N83.202 Unspecified ovarian cyst, left side (principal); K21.9 Gastro-esophageal reflux disease without esophagitis; F17.200 Nicotine dependence, unspecified, uncomplicated; Z79.899 Other long term (current) drug therapy; Z88.1 Allergy status to other antibiotic agents; Z88.5 Allergy status to narcotic agent; Z90.49 Acquired absence of other specified parts of digestive tract
CPT/HCPCS: 36415; 80053; 82150; 83690; 85025; 81001; 81025; 72100; 74000; 93975; 76830; 99284; 96374; J1885

== ENCOUNTER 2018-03-03 13:14 | Emergency (ER) | payer OTHER ==
[2018-03-03 13:17] VITALS: TEMP 98.2
[2018-03-03] MEDS ORDERED: SODIUM CHLORIDE 0.9% 1,000 ML IV STA (14:16)
--- NOTE | 2018-03-03 14:24 | ED ---
Abdominal Pain HPI - General Chief Complaint: Abdominal Pain Stated Complaint: lower right abdominal pain Time Seen by Provider: 03/03/18 13:54 Source: patient, RN notes reviewed Mode of arrival: ambulatory Limitations: no limitations - History of Present Illness Initial Comments: This is a 37-year-old female who presents to the emergency department with chief complaint of right lower quadrant abdominal pain. Patient states that she developed a sharp, stabbing pain in her right lower quadrant on Saturday. She states that she has had her appendix removed during an exploratory laparotomy a few years ago. She states that she had a computed tomography scan performed last year and was told that only part of the appendix had been removed at that time. Patient states that she is also had nausea and diarrhea. Denies vomiting, fevers or chills, chest pain or shortness of breath. Patient states that she is not currently . She states that she takes oral control. Last menstrual period was 2 weeks ago. Denies any abnormal vaginal bleeding or discharge. Denies any concerns for STDs. - Related Data Home Medications Medication Instructions Recorded Confirmed Melatonin 10 mg PO HS PRN 05/03/17 03/03/18 Famotidine [Pepcid] 20 mg PO DAILY 06/28/17 03/03/18 Allergies Allergy/AdvReac Type Severity Reaction Status Date / Time cephalexin monohydrate Allergy Rash/Hives Verified 03/03/18 13:29 [From Keflex] codeine Allergy Rash/Hives Verified 03/03/18 13:29 Review of Systems ROS Statement: Those systems with pertinent positive or pertinent negative responses have been documented in the HPI. ROS Other: All systems not noted in ROS Statement are negative. Past Medical History Past Medical History: GERD/Reflux Additional Past Medical History / Comment(s): CURRENT: MULTIPLE EC VISIT AND TESTING FOR ABD PAIN, FOUND TO HAVE KIDNEY STONE (RIGHT), ovarian cyst History of Any Multi-Drug Resistant Organisms: None Reported Past Surgical History: Appendectomy, Orthopedic Surgery Additional Past Surgical History / Comment(s): Left knee surgery Past Anesthesia/Blood Transfusion Reactions: No Reported Reaction Past Psychological History: Depression Smoking Status: Current every day smoker Past Alcohol Use History: Occasional Past Drug Use History: Marijuana - Past Family History Mother Family Medical History: Diabetes Mellitus Brother(s) Family Medical History: Diabetes Mellitus Father Family Medical History: Hypertension Additional Family Medical History / Comment(s): BOARDBRIELINE DM General Exam - General Exam Comments Initial Comments: General: Awake and alert, well-developed; in no apparent distress. HEENT: Head atraumatic, normocephalic. Pupils are equal, round and reactive to light. Extraocular movements intact. Oropharynx moist without erythema or exudate. Neck: Supple. Normal ROM. Cardiovascular: Regular rate and rhythm. No murmurs, rubs or gallops. Chest symmetrical. Respiratory: Lungs clear to auscultation bilaterally. No wheezes, rales or rhonchi. Normal respiratory effort with no use of accessory muscles. Abdomen: Soft, non-distended. Tenderness on palpation of right lower quadrant with rebound. No rigidity or guarding. Normal bowel sounds in all 4 quadrants. Musculoskeletal: Normal ROM, no tenderness bilateral upper and lower extremities. Ambulating normally. Skin: [place], warm and dry without rashes or lesions. Neurological: Alert and oriented x3. CN II-XII grossly intact. Speech is fluent and answers are appropriate. No focal neuro deficits. Psychiatric: Normal mood and affect. No overt signs of depression or anxiety noted. Limitations: no limitations Course Vital Signs 03/03/18 03/03/18 13:16 14:32 Temperature 98.2 F Pulse Rate 117 H 74 Respiratory 20 16 Rate Blood Pressure 124/79 112/56 O2 Sat by Pulse 98 98 Oximetry Medical Decision Making - Medical Decision Making This is a 37-year-old female presents to the emergency department with chief complaint of right lower quadrant abdominal pain. Patient reports history of appendectomy. She reports a history of kidney stones and ovarian cysts. On physical examination, there is tenderness with rebound the right lower quadrant. No rigidity or guarding. CBC revealed no white count. Hemoglobin of 11.1, however this is consistent with patient's baseline. UA was unremarkable. CMP is essentially unremarkable. Ultrasound of the pelvis unable to visualize the right ovary due to overlying bowel gas. No evidence of free fluid within the pelvis. Findings were discussed with patient at bedside. She states she continues to have some abdominal pain. Recommended following up with her primary care provider and to return to the emergency department if symptoms worsen. Patient is in agreement with plan and voices understanding. Vital signs have been stable and she is in acute distress. She will be discharged home at this time. All questions answered. - Lab Data Result diagrams: 03/03/18 14:00 03/03/18 14:00 Lab Results 03/03/18 03/03/18 03/03/18 Range/Units 14:00 14:00 14:30 WBC 4.7 (3.8-10.6) k/uL RBC 2.93 L (3.80-5.40) m/uL Hgb 11.1 L (11.4-16.0) gm/dL Hct 36.1 (34.0-46.0) % MCV 123.1 H (80.0-100.0) fL MCH 38.0 H (25.0-35.0) pg MCHC 30.9 L (31.0-37.0) g/dL RDW 17.3 H (11.5-15.5) % Plt Count 191 (150-450) k/uL Neutrophils % 71 % Lymphocytes % 24 % Monocytes % 3 % Eosinophils % 2 % Basophils % 0 % Neutrophils # 3.3 (1.3-7.7) k/uL Lymphocytes # 1.1 (1.0-4.8) k/uL Monocytes # 0.1 (0-1.0) k/uL Eosinophils # 0.1 (0-0.7) k/uL Basophils # 0.0 (0-0.2) k/uL Anisocytosis Slight Macrocytosis Marked Stomatocytes Present Sodium 141 (137-145) mmol/L Potassium 3.9 (3.5-5.1) mmol/L Chloride 108 H (98-107) mmol/L Carbon Dioxide 21 L (22-30) mmol/L Anion Gap 12 mmol/L BUN 5 L (7-17) mg/dL Creatinine 0.52 (0.52-1.04) mg/dL Est GFR (CKD-EPI)AfAm >90 (>60 ml/min/1.73 sqM) Est GFR (CKD-EPI)NonAf >90 (>60 ml/min/1.73 sqM) Glucose 87 (74-99) mg/dL Calcium 9.5 (8.4-10.2) mg/dL Total Bilirubin 0.6 (0.2-1.3) mg/dL AST 59 H (14-36) U/L ALT 30 (9-52) U/L Alkaline Phosphatase 118 (38-126) U/L Total Protein 7.3 (6.3-8.2) g/dL Albumin 4.2 (3.5-5.0) g/dL Amylase 53 (30-110) U/L Lipase 170 (23-300) U/L Urine Color Urine Appearance (Clear) Urine pH (5.0-8.0) Ur Specific [place] (1.001-1.035) Urine Protein (Negative) Urine Glucose (UA) (Negative) Urine Ketones (Negative) Urine Blood (Negative) Urine Nitrite (Negative) Urine Bilirubin (Negative) Urine Urobilinogen (<2.0) mg/dL Ur Leukocyte Esterase (Negative) Urine HCG, Qual Not Detected (Not Detectd) 03/03/18 Range/Units 14:30 WBC (3.8-10.6) k/uL RBC (3.80-5.40) m/uL Hgb (11.4-16.0) gm/dL Hct (34.0-46.0) % MCV (80.0-100.0) fL MCH (25.0-35.0) pg MCHC (31.0-37.0) g/dL RDW (11.5-15.5) % Plt Count (150-450) k/uL Neutrophils % % Lymphocytes % % Monocytes % % Eosinophils % % Basophils % % Neutrophils # (1.3-7.7) k/uL Lymphocytes # (1.0-4.8) k/uL Monocytes # (0-1.0) k/uL Eosinophils # (0-0.7) k/uL Basophils # (0-0.2) k/uL Anisocytosis Macrocytosis Stomatocytes Sodium (137-145) mmol/L Potassium (3.5-5.1) mmol/L Chloride (98-107) mmol/L Carbon Dioxide (22-30) mmol/L Anion Gap mmol/L BUN (7-17) mg/dL Creatinine (0.52-1.04) mg/dL Est GFR (CKD-EPI)AfAm (>60 ml/min/1.73 sqM) Est GFR (CKD-EPI)NonAf (>60 ml/min/1.73 sqM) Glucose (74-99) mg/dL Calcium (8.4-10.2) mg/dL Total Bilirubin (0.2-1.3) mg/dL AST (14-36) U/L ALT (9-52) U/L Alkaline Phosphatase (38-126) U/L Total Protein (6.3-8.2) g/dL Albumin (3.5-5.0) g/dL Amylase (30-110) U/L Lipase (23-300) U/L Urine Color Yellow Urine Appearance Clear (Clear) Urine pH 6.0 (5.0-8.0) Ur Specific [place] 1.005 (1.001-1.035) Urine Protein Negative (Negative) Urine Glucose (UA) Negative (Negative) Urine Ketones Negative (Negative) Urine Blood Negative (Negative) Urine Nitrite Negative (Negative) Urine Bilirubin Negative (Negative) Urine Urobilinogen <2.0 (<2.0) mg/dL Ur Leukocyte Esterase Negative (Negative) Urine HCG, Qual (Not Detectd) - Radiology Data Radiology results: report reviewed Pelvic ultrasound impression: The right ovary could not be visualized due to bowel gas. Left ovary could not be seen transabdominally and has a normal appearance. No sonographic evidence for left ovarian torsion. Suggestion of a scar. Clinically correlate. No pelvic free fluid. Disposition Clinical Impression: Abdominal pain Disposition: HOME SELF-CARE Condition: Good Instructions: Abdominal Pain (ED) Additional Instructions: Please follow up with primary care provider within 1-2 days. Return to emergency department if symptoms should worsen or any concerns arise. Is patient prescribed a controlled substance at d/c from ED?: No Referrals: Cecil Cárdenas MD [Primary Care Provider] - 1-2 days Time of Disposition: 16:28
[2018-03-03 14:33] VITALS: RESP 16
[2018-03-03 14:35] LABS: Anisocytosis Slight; Basophils % (A) 0 %; Eosinophils # (A) 0.1 k/uL (0-0.7); Eosinophils % (A) 2 %; HCT 36.1 % (34.0-46.0); HGB 11.1 gm/dL (11.4-16.0); Lymphocytes # (A) 1.1 k/uL (1.0-4.8); Lymphocytes % (A) 24 %; MCHC 30.9 g/dL (31.0-37.0); MCV 123.1 fL (80.0-100.0); Macrocytosis Marked; Mean Platelet Volume 7.7; Monocytes # (A) 0.1 k/uL (0-1.0); Monocytes % (A) 3 %; Neutrophils # (A) 3.3 k/uL (1.3-7.7); Neutrophils % (A) 71 %; Platelet Count 191 k/uL (150-450); RBC 2.93 m/uL (3.80-5.40); RDW 17.3 % (11.5-15.5); WBC 4.7 k/uL (3.8-10.6)
[2018-03-03] MEDS ORDERED: KETOROLAC 30 MG/ML 1 ML VIAL IVP STA (14:36)
[2018-03-03 14:37] LABS: ALT 30 U/L (9-52); AST 59 U/L (14-36); Albumin 4.2 g/dL (3.5-5.0); Alkaline Phosphatase 118 U/L (38-126); Amylase 53 U/L (30-110); Anion Gap 12 mmol/L; Blood Urea Nitrogen 5 mg/dL (7-17); Calcium 9.5 mg/dL (8.4-10.2); Carbon Dioxide 21 mmol/L (22-30); Chloride 108 mmol/L (98-107); Glucose 87 mg/dL (74-99); Lipase 170 U/L (23-300); Potassium 3.9 mmol/L (3.5-5.1); Sodium 141 mmol/L (137-145); Total Bilirubin 0.6 mg/dL (0.2-1.3); Total Protein 7.3 g/dL (6.3-8.2)
[2018-03-03 14:49] LABS: Appearance,Urine Clear (Clear); Bilirubin,Urine Negative (Negative); Blood,Urine Negative (Negative); Color,Urine Yellow; Glucose,Urine (UA) Negative (Negative); Ketones,Urine Negative (Negative); Leukocyte Esterase,Urine Negative (Negative); Nitrite,Urine Negative (Negative); Protein,Urine Negative (Negative); Specific Gravity,Urine 1.005 (1.001-1.035); Urobilinogen,Urine <2.0 mg/dL (<2.0)
[2018-03-03 15:06] LABS: Stomatocytes Present
--- NOTE | 2018-03-03 15:52 | US ---
EXAMINATION TYPE: US pelvis comp w/tv w/doppler DATE OF EXAM: 03/03/2018 COMPARISON: NONE CLINICAL HISTORY: 37-year-old female Pain. Right pelvic pain, history of ovarian cysts TECHNIQUE: Transabdominal sonographic images of the pelvis were acquired. Transvaginal sonographic images were medically necessary to better assess the following anatomy: ovaries. Color Doppler and s pectral waveform analysis of the ovarian arteries and veins. Date of LMP: 02/17/18 FINDINGS: EXAM MEASUREMENTS: Uterus: 6.8 x 3.3 x 4.2 cm Endometrial Stripe: 0.5 cm Right Ovary: unable to visualize Left Ovary: 3.2 x 1.5 x 1.4 cm 1. Uterus: Anteverted . Suggestion of a scar. 2. Endometrium: appears wnl 3. Right Ovary: Obscured by overlying bowel gas 4. Left Ovary: limited evaluation due to overlying bowel content, visualized portions appear wnl . T his is best seen transabdominally and has a volume of 3.5 mL, normal. Spectral, color and waveform doppler imaging shows good arterial and venous flow within the left ov bettina, there is no evidence for ovarian torsion. 5. Bilateral Adnexa: appears wnl 6. Posterior cul-de-sac: wnl IMPRESSION: 1. The right ovary could not be visualized due to bowel gas. 2. Left ovary could only be seen transabdominally and has a normal appearance. No sonographic evidenc e for left ovarian torsion. 3. Suggestion of a scar. Clinically correlate. 4. No pelvic free fluid.
[2018-03-03] MEDS ORDERED: HYDROcodone/APAP 5-325MG 1 EACH TAB PO STA (16:24)
[2018-03-03 16:41] VITALS: BP 112/66; PULSE 77
== END 2018-03-03 16:41 | disposition home or self-care (01) ==
LOC: EC 13:14
DX: R10.31 Right lower quadrant pain (principal); K21.9 Gastro-esophageal reflux disease without esophagitis; F17.200 Nicotine dependence, unspecified, uncomplicated; Z98.890 Other specified postprocedural states; Z87.442 Personal history of urinary calculi; Z87.42 Personal history of other diseases of the female genital tract; Z90.49 Acquired absence of other specified parts of digestive tract; Z88.1 Allergy status to other antibiotic agents; Z88.5 Allergy status to narcotic agent
CPT/HCPCS: 36415; 80053; 82150; 83690; 85025; 81003; 81025; 93976; 76856; 76830; 99284; 96374; 96361 ×2; J1885

== ENCOUNTER 2018-12-08 12:59 | Emergency (ER) | payer OTHER ==
[2018-12-08] MEDS ORDERED: ONDANSETRON 4 MG/2 ML VIAL IVP STA ×2 (14:40→16:25)
[2018-12-08] MEDS ORDERED: SODIUM CHLORIDE 0.9% 1,000 ML IV STA (14:41)
[2018-12-08] MEDS ORDERED: DICYCLOMINE 20 MG TAB PO STA (14:42)
--- NOTE | 2018-12-08 14:49 | ED ---
Nausea/Vomiting/Diarrhea HPI - General Chief complaint: Nausea/Vomiting/Diarrhea Stated complaint: NVD X 3 DAYS Time Seen by Provider: 12/08/18 14:26 Source: patient Mode of arrival: ambulatory Limitations: no limitations - History of Present Illness Initial comments: Patient is a 38-year-old female complaining of generalized abdominal pain, nausea, vomiting, and mild diarrhea 3 days. States the nausea started first Saturday night and has progressed to generalized abdominal pain. Patient has been unable to eat or drink much. Admits to history of appendectomy, no other abdominal surgeries. Last BM was this morning and it was "runny." Admits to feeling weak, but no other complaints at this time. Patient denies urinary symptoms, blood in stool. - Related Data Home Medications Medication Instructions Recorded Confirmed Famotidine [Pepcid] 20 mg PO DAILY 06/28/17 12/08/18 Acetaminophen/Diphenhydramine 2 tab PO HS 12/08/18 12/08/18 [Tylenol PM 500-25mg] Previous Rx's Medication Instructions Recorded Ondansetron Odt [Zofran Odt] 4 mg PO Q8HR PRN #10 tab 12/08/18 Allergies Allergy/AdvReac Type Severity Reaction Status Date / Time cephalexin monohydrate Allergy Rash/Hives Verified 12/08/18 14:38 [From Keflex] codeine Allergy Rash/Hives Verified 12/08/18 14:38 Review of Systems ROS Statement: Those systems with pertinent positive or pertinent negative responses have been documented in the HPI. ROS Other: All systems not noted in ROS Statement are negative. Past Medical History Past Medical History: GERD/Reflux Additional Past Medical History / Comment(s): CURRENT: MULTIPLE EC VISIT AND TESTING FOR ABD PAIN, FOUND TO HAVE KIDNEY STONE (RIGHT), ovarian cyst History of Any Multi-Drug Resistant Organisms: None Reported Past Surgical History: Appendectomy, Orthopedic Surgery Additional Past Surgical History / Comment(s): Left knee surgery Past Anesthesia/Blood Transfusion Reactions: No Reported Reaction Past Psychological History: Depression Smoking Status: Current every day smoker Past Alcohol Use History: Occasional Past Drug Use History: Marijuana - Past Family History Mother Family Medical History: Diabetes Mellitus Brother(s) Family Medical History: Diabetes Mellitus Father Family Medical History: Hypertension Additional Family Medical History / Comment(s): BOARDERLINE DM General Exam - General Exam Comments Initial Comments: GENERAL: Well-appearing, well-nourished and in no acute distress. HEAD: Atraumatic, normocephalic. EYES: Pupils equal round and reactive to light, extraocular movements intact, sclera anicteric, conjunctiva are normal. ENT: TMs normal, nares patent, oropharynx clear without exudates. Moist mucous membranes. NECK: Normal range of motion, supple without lymphadenopathy or JVD. LUNGS: Breath sounds clear to auscultation bilaterally and equal. No wheezes rales or rhonchi. HEART: Regular rate and rhythm without murmurs, rubs or gallops. ABDOMEN: Soft, Generalized abdominal tenderness. Hypo-active bowel sounds. No guarding, no rebound. No masses appreciated. : Deferred EXTREMITIES: Normal range of motion, no pitting or edema. No clubbing or cyanosis. NEUROLOGICAL: Cranial nerves II through XII grossly intact. Normal speech, normal gait. PSYCH: Normal mood, normal affect. SKIN: Warm, Dry, normal turgor, no rashes or lesions noted. Limitations: no limitations Course Vital Signs 12/08/18 13:38 Temperature 97.4 F L Pulse Rate 104 H Respiratory 16 Rate Blood Pressure 116/74 O2 Sat by Pulse 99 Oximetry - Reevaluation(s) Reevaluation #1: 12/08/18 16:26 Patient is still having abdominal pain, and her nausea has been slightly improved. Will give more Zofran and Toradol. Medical Decision Making - Medical Decision Making Patient is a 38-year-old female complaining of nausea, vomiting, generalized abdominal pain 3 days. Patient has history of alcohol abuse and is occurring every day smoker. CBC, CMP are comparable to her last values. UA showed contaminated sample, ketones. Patient was given Zofran, fluids, Toradol. Patient reports improvement. Patient will be discharged home with Zofran. - Lab Data Result diagrams: 12/08/18 15:10 12/08/18 15:10 Lab Results 12/08/18 12/08/18 12/08/18 Range/Units 15:10 15:10 15:10 WBC 2.6 L (3.8-10.6) k/uL RBC 3.19 L (3.80-5.40) m/uL Hgb 12.5 (11.4-16.0) gm/dL Hct 37.9 (34.0-46.0) % MCV 118.7 H (80.0-100.0) fL MCH 39.2 H (25.0-35.0) pg MCHC 33.1 (31.0-37.0) g/dL RDW 17.4 H (11.5-15.5) % Plt Count 72 L (150-450) k/uL Neutrophils % 67 % Lymphocytes % 25 % Monocytes % 3 % Eosinophils % 4 % Basophils % 0 % Neutrophils # 1.8 (1.3-7.7) k/uL Lymphocytes # 0.7 L (1.0-4.8) k/uL Monocytes # 0.1 (0-1.0) k/uL Eosinophils # 0.1 (0-0.7) k/uL Basophils # 0.0 (0-0.2) k/uL Manual Slide Review Performed Anisocytosis Slight Macrocytosis Marked A Sodium 138 (137-145) mmol/L Potassium 3.6 (3.5-5.1) mmol/L Chloride 97 L (98-107) mmol/L Carbon Dioxide 31 H (22-30) mmol/L Anion Gap 10 mmol/L BUN 10 (7-17) mg/dL Creatinine 0.44 L (0.52-1.04) mg/dL Est GFR (CKD-EPI)AfAm >90 (>60 ml/min/1.73 sqM) Est GFR (CKD-EPI)NonAf >90 (>60 ml/min/1.73 sqM) Glucose 100 H (74-99) mg/dL Calcium 9.1 (8.4-10.2) mg/dL Total Bilirubin 1.1 (0.2-1.3) mg/dL AST 77 H (14-36) U/L ALT 16 (9-52) U/L Alkaline Phosphatase 280 H (38-126) U/L Total Protein 7.1 (6.3-8.2) g/dL Albumin 3.9 (3.5-5.0) g/dL Urine Color [place] Urine Appearance Cloudy H (Clear) Urine pH 6.0 (5.0-8.0) Ur Specific [place] 1.041 H (1.001-1.035) Urine Protein 1+ H (Negative) Urine Glucose (UA) Negative (Negative) Urine Ketones 2+ H (Negative) Urine Blood Negative (Negative) Urine Nitrite Negative (Negative) Urine Bilirubin 1+ H (Negative) Urine Urobilinogen 4.0 (<2.0) mg/dL Ur Leukocyte Esterase Large H (Negative) Urine RBC 3 (0-5) /hpf Urine WBC 26 H (0-5) /hpf Ur Squamous Epith Cells 14 H (0-4) /hpf Amorphous Sediment Rare H (None) /hpf Hyaline Casts 8 H (0-2) /lpf Urine Mucus Many H (None) /hpf Disposition Clinical Impression: Gastroenteritis, Dehydration Disposition: HOME SELF-CARE Condition: Stable Instructions (If sedation given, give patient instructions): Dehydration (ED), Acute Nausea and Vomiting (ED) Additional Instructions: Please return to the Emergency Department if symptoms worsen or any other concerns. Prescriptions: Ondansetron Odt [Zofran Odt] 4 mg PO Q8HR PRN #10 tab PRN Reason: Nausea Is patient prescribed a controlled substance at d/c from ED?: No Referrals: None,Stated [Primary Care Provider] - 1-2 days
[2018-12-08 15:28] LABS: Amorphous Sediment,Urine Rare /hpf; Appearance,Urine Cloudy (Clear); Bilirubin,Urine 1+ (Negative); Blood,Urine Negative (Negative); Color,Urine Orange; Glucose,Urine (UA) Negative (Negative); Hyaline Casts,Urine 8 /lpf (0-2); Ketones,Urine 2+ (Negative); Leukocyte Esterase,Urine Large (Negative); Mucus,Urine Many /hpf; Nitrite,Urine Negative (Negative); Protein,Urine 1+ (Negative); RBC,Urine 3 /hpf (0-5); Specific Gravity,Urine 1.041 (1.001-1.035); Squamous Epithelial Cell,Urine 14 /hpf (0-4)
[2018-12-08 15:34] LABS: ALT 16 U/L (9-52); AST 77 U/L (14-36); Albumin 3.9 g/dL (3.5-5.0); Alkaline Phosphatase 280 U/L (38-126); Anion Gap 10 mmol/L; Blood Urea Nitrogen 10 mg/dL (7-17); Calcium 9.1 mg/dL (8.4-10.2); Carbon Dioxide 31 mmol/L (22-30); Chloride 97 mmol/L (98-107); Glucose 100 mg/dL (74-99); Potassium 3.6 mmol/L (3.5-5.1); Sodium 138 mmol/L (137-145); Total Bilirubin 1.1 mg/dL (0.2-1.3); Total Protein 7.1 g/dL (6.3-8.2)
[2018-12-08 15:37] LABS: Anisocytosis Slight; Basophils % (A) 0 %; Eosinophils # (A) 0.1 k/uL (0-0.7); Eosinophils % (A) 4 %; HCT 37.9 % (34.0-46.0); HGB 12.5 gm/dL (11.4-16.0); Lymphocytes # (A) 0.7 k/uL (1.0-4.8); Lymphocytes % (A) 25 %; MCH 39.2 pg (25.0-35.0); MCHC 33.1 g/dL (31.0-37.0); MCV 118.7 fL (80.0-100.0); Macrocytosis Marked; Mean Platelet Volume 9.9; Monocytes # (A) 0.1 k/uL (0-1.0); Monocytes % (A) 3 %; Neutrophils # (A) 1.8 k/uL (1.3-7.7); Neutrophils % (A) 67 %; RBC 3.19 m/uL (3.80-5.40); RDW 17.4 % (11.5-15.5); WBC 2.6 k/uL (3.8-10.6)
[2018-12-08 15:43] LABS: Platelet Count 72 k/uL (150-450)
[2018-12-08] MEDS ORDERED: KETOROLAC 30 MG/ML 1 ML VIAL IVP STA (16:25)
[2018-12-08 18:15] VITALS: BP 112/76; PULSE 91; RESP 18; TEMP 98.8
== END 2018-12-08 18:15 | disposition home or self-care (01) ==
LOC: EC 12:59
DX: K52.9 Noninfective gastroenteritis and colitis, unspecified (principal); E86.0 Dehydration; K21.9 Gastro-esophageal reflux disease without esophagitis; F17.200 Nicotine dependence, unspecified, uncomplicated; Z79.899 Other long term (current) drug therapy; Z88.1 Allergy status to other antibiotic agents; Z88.5 Allergy status to narcotic agent; Z90.49 Acquired absence of other specified parts of digestive tract
CPT/HCPCS: 36415; 80053; 85025; 81001; 87086; 99284; 96374; 96375; 96376; 96361 ×2; J2405; J1885

== ENCOUNTER 2019-04-08 11:00 | Emergency (ER) | payer OTHER ==
[2019-04-08 11:05] VITALS: TEMP 97.1
[2019-04-08] MEDS ORDERED: ONDANSETRON 4 MG/2 ML VIAL IVP STA (11:31)
[2019-04-08] MEDS ORDERED: SODIUM CHLORIDE 0.9% 1,000 ML IV STA (11:31)
[2019-04-08] MEDS ORDERED: KETOROLAC 30 MG/ML 1 ML VIAL IVP STA (11:34)
[2019-04-08 12:28] LABS: Appearance,Urine Cloudy (Clear); Bilirubin,Urine 1+ (Negative); Blood,Urine Negative (Negative); Color,Urine Dark Brown; Glucose,Urine (UA) Negative (Negative); Ketones,Urine 1+ (Negative); Leukocyte Esterase,Urine Small (Negative); Mucus,Urine Many /hpf; Nitrite,Urine Negative (Negative); Protein,Urine 1+ (Negative); RBC,Urine 2 /hpf (0-5); Specific Gravity,Urine 1.043 (1.001-1.035); Squamous Epithelial Cell,Urine 17 /hpf (0-4)
[2019-04-08 12:32] LABS: Basophils % (A) 1 %; Eosinophils # (A) 0.1 k/uL (0-0.7); Eosinophils % (A) 2 %; HCT 29.8 % (34.0-46.0); HGB 10.2 gm/dL (11.4-16.0); Lymphocytes # (A) 0.7 k/uL (1.0-4.8); Lymphocytes % (A) 23 %; MCHC 34.3 g/dL (31.0-37.0); MCV 127.2 fL (80.0-100.0); Macrocytosis Marked; Mean Platelet Volume 7.1; Monocytes # (A) 0.1 k/uL (0-1.0); Monocytes % (A) 2 %; Neutrophils # (A) 2.2 k/uL (1.3-7.7); Neutrophils % (A) 72 %; RBC 2.35 m/uL (3.80-5.40); RDW 15.8 % (11.5-15.5)
[2019-04-08 12:37] LABS: MCH 43.6 pg (25.0-35.0)
[2019-04-08 12:43] LABS: ALT 30 U/L (9-52); AST 185 U/L (14-36); African American GFR (CKD) >90 (>60 ml/min/1.73 sqM); Albumin 3.9 g/dL (3.5-5.0); Alkaline Phosphatase 219 U/L (38-126); Amylase 56 U/L (30-110); Anion Gap 11 mmol/L; Blood Urea Nitrogen 7 mg/dL (7-17); Calcium 8.7 mg/dL (8.4-10.2); Carbon Dioxide 28 mmol/L (22-30); Chloride 101 mmol/L (98-107); Glucose 87 mg/dL (74-99); Potassium 3.3 mmol/L (3.5-5.1); Sodium 140 mmol/L (137-145); Total Bilirubin 0.9 mg/dL (0.2-1.3); Total Protein 7.3 g/dL (6.3-8.2)
--- NOTE | 2019-04-08 13:23 | CT ---
EXAMINATION TYPE: CT abdomen pelvis w con DATE OF EXAM: 04/08/2019 COMPARISON: 04/22/2017 HISTORY: RUQ pain CT DLP: 595.3 mGycm CONTRAST: CT scan of the abdomen and pelvis is performed without Oral Contrast and with IV Contrast, patient in jected with 100 mL of Isovue 300. FINDINGS: LUNG BASES-: No visible nodule. No infiltrate. LIVER/GB: There is hepatomegaly with underlying fatty hepatic infiltration. No calcified gallstones. No space occupying hepatic lesion. Biliary tree is of normal caliber. PANCREAS: No inflammation. No distinct mass. SPLEEN: Borderline splenomegaly with craniocaudal measurement of 12.9 cm. No lesion seen. ADRENALS: No nodule. No thickening. KIDNEYS/BLADDER: No hydronephrosis. No nephrolithiasis. No distinct renal mass. Urinary bladder g rossly unremarkable. BOWEL: Previous changes noted of appendectomy. There are distended loops of small bowel wall thickeni ng or fluid levels identified as well as a wall thickening involving the colon. No evidence for free air or abscess. Consider enterocolitis. GENITAL ORGANS: No gross abnormality. LYMPH NODES: No greater than 1cm abdominal or pelvic lymph nodes are appreciated. AORTA: No significant abnormality. OSSEOUS STRUCTURES: No significant abnormality is seen. OTHER: No significant additional abnormality is seen. IMPRESSION: 1. Suspect enterocolitis. Correlate clinically. 2. Borderline splenomegaly. 3. Hepatomegaly with underlying hepatic steatosis.
[2019-04-08] MEDS ORDERED: MORPHINE SULFATE 4 MG/ML SYRINGE IVP STA (13:29)
--- NOTE | 2019-04-08 13:33 | ED ---
Abdominal Pain HPI - General Chief Complaint: Abdominal Pain Stated Complaint: Abd pain Time Seen by Provider: 04/08/19 11:09 Source: patient Mode of arrival: ambulatory Limitations: no limitations - History of Present Illness Initial Comments: Patient is a 38-year-old female presenting to the emergency Department with complaints of right-sided abdominal pain 3 days. Patient states she went to urgent care earlier today and they sent her to the ER. Patient states the pain started 3 days ago on the right side of her abdomen in the pain has been inc reasing in intensity and has been constant in nature. Patient describes the pain as sharp with radiation into her back. Patient denies any nausea or vomiting. Patient denies fever, chills, chest pain, shortness of breath. Patient does admit to an every day smoker as well as a drinker. She consumes approximately 1 pint every 1-2 days. Admits to history of appendectomy. No other abdominal surgeries. Patient has no other complaints at this time. Upon arrival to ER, patient is slightly tachycardia at 107, rest of vital signs are stable, afebrile. - Related Data Home Medications Medication Instructions Recorded Confirmed Famotidine [Pepcid] 20 mg PO DAILY 06/28/17 04/08/19 Acetaminophen Tab [Tylenol] 1,000 mg PO Q6H PRN 04/08/19 04/08/19 Ibuprofen/Diphenhydramine HCl 1 cap PO HS PRN 04/08/19 04/08/19 [Advil Pm Liqui-Gels] Allergies Allergy/AdvReac Type Severity Reaction Status Date / Time cephalexin monohydrate Allergy Rash/Hives Verified 04/08/19 11:14 [From Keflex] codeine Allergy Rash/Hives Verified 04/08/19 11:14 Review of Systems ROS Statement: Those systems with pertinent positive or pertinent negative responses have been documented in the HPI. ROS Other: All systems not noted in ROS Statement are negative. Past Medical History Past Medical History: GERD/Reflux Additional Past Medical History / Comment(s): CURRENT: MULTIPLE EC VISIT AND TESTING FOR ABD PAIN, FOUND TO HAVE KIDNEY STONE (RIGHT), ovarian cyst History of Any Multi-Drug Resistant Organisms: None Reported Past Surgical History: Appendectomy, Orthopedic Surgery Additional Past Surgical History / Comment(s): Left knee surgery Past Anesthesia/Blood Transfusion Reactions: No Reported Reaction Past Psychological History: Depression Smoking Status: Current every day smoker Past Alcohol Use History: Daily Past Drug Use History: Marijuana - Past Family History Mother Family Medical History: Diabetes Mellitus Brother(s) Family Medical History: Diabetes Mellitus Father Family Medical History: Hypertension Additional Family Medical History / Comment(s): BOARDERLINE DM General Exam - General Exam Comments Initial Comments: GENERAL: Pale, thin appearing, appears uncomfortable. HEAD: Atraumatic, normocephalic. EYES: Pupils equal round and reactive to light, extraocular movements intact, sclera anicteric, conjunctiva are normal. ENT: TMs normal, nares patent, oropharynx clear without exudates. Moist mucous membranes. NECK: Normal range of motion, supple without lymphadenopathy or JVD. LUNGS: Breath sounds clear to auscultation bilaterally and equal. No wheezes rales or rhonchi. HEART: Regular rate and rhythm without murmurs, rubs or gallops. ABDOMEN: Tender to palpation of the right upper quadrant as well as right mid abdominal pain, some tenderness of the left upper quadrant. Positive Luque's sign. Soft, normoactive bowel sounds. No guarding. No masses appreciated. : Deferred EXTREMITIES: Normal range of motion, no pitting or edema. No clubbing or cyanosis. NEUROLOGICAL: Cranial nerves II through XII grossly intact. Normal speech, normal gait. PSYCH: Normal mood, normal affect. SKIN: Warm, Dry, normal turgor, no rashes or lesions noted. Limitations: no limitations Course Vital Signs 04/08/19 04/08/19 11:03 15:29 Temperature 97.1 F L Pulse Rate 107 H 67 Respiratory 22 20 Rate Blood Pressure 116/67 118/68 O2 Sat by Pulse 99 Oximetry Medical Decision Making - Medical Decision Making Patient is a 38-year-old female presenting with right upper quadrant pain 3 days. Patient is a every day smoker as well as a drinker. Patient consumes a pint of liquor every 1-2 days. Patient's vital signs are stable upon arrival. On exam patient has tenderness of the upper right and left quadrants as well as right mid abdominal pain. Patient denies fever, chills, nausea, vomiting. Patient's CBC is comparable to her last counts. Patient's potassium is slightly low at 3.3. AST is 185, ALTs 30, alk phos is 219. Amylase and lipase are normal. UA shows 1+ ketones, 1+ bilirubin. CT the abdomen shows borderline splenomegaly, hepatomegaly with underlying hepatic steatosis. Patient was given fluids, Zofran, pain medication. Patient reports improvement in symptoms. Patient is okay with going home today and following up with her PCP. Discussed with patient to stop drinking and smoking as this is the cause of her symptoms. Patient is stable for discharge at this time. Return parameters were discussed with the patient and she verbalized understanding. Case was discussed with Dr. Hartmann. - Lab Data Result diagrams: 04/08/19 11:47 04/08/19 11:47 Lab Results 04/08/19 04/08/19 04/08/19 Range/Units 11:47 11:47 11:47 WBC 3.0 L (3.8-10.6) k/uL RBC 2.35 L (3.80-5.40) m/uL Hgb 10.2 L (11.4-16.0) gm/dL Hct 29.8 L (34.0-46.0) % MCV 127.2 H (80.0-100.0) fL MCH 43.6 H (25.0-35.0) pg MCHC 34.3 (31.0-37.0) g/dL RDW 15.8 H (11.5-15.5) % Plt Count 92 L (150-450) k/uL Neutrophils % 72 % Lymphocytes % 23 % Monocytes % 2 % Eosinophils % 2 % Basophils % 1 % Neutrophils # 2.2 (1.3-7.7) k/uL Lymphocytes # 0.7 L (1.0-4.8) k/uL Monocytes # 0.1 (0-1.0) k/uL Eosinophils # 0.1 (0-0.7) k/uL Basophils # 0.0 (0-0.2) k/uL Manual Slide Review Performed Macrocytosis Marked A Sodium 140 (137-145) mmol/L Potassium 3.3 L (3.5-5.1) mmol/L Chloride 101 (98-107) mmol/L Carbon Dioxide 28 (22-30) mmol/L Anion Gap 11 mmol/L BUN 7 (7-17) mg/dL Creatinine 0.44 L (0.52-1.04) mg/dL Est GFR (CKD-EPI)AfAm >90 (>60 ml/min/1.73 sqM) Est GFR (CKD-EPI)NonAf >90 (>60 ml/min/1.73 sqM) Glucose 87 (74-99) mg/dL Calcium 8.7 (8.4-10.2) mg/dL Total Bilirubin 0.9 (0.2-1.3) mg/dL AST 185 H (14-36) U/L ALT 30 (9-52) U/L Alkaline Phosphatase 219 H (38-126) U/L Total Protein 7.3 (6.3-8.2) g/dL Albumin 3.9 (3.5-5.0) g/dL Amylase 56 (30-110) U/L Lipase 93 (23-300) U/L Urine Color Dark Brown Urine Appearance Cloudy H (Clear) Urine pH 6.0 (5.0-8.0) Ur Specific Franklin 1.043 H (1.001-1.035) Urine Protein 1+ H (Negative) Urine Glucose (UA) Negative (Negative) Urine Ketones 1+ H (Negative) Urine Blood Negative (Negative) Urine Nitrite Negative (Negative) Urine Bilirubin 1+ H (Negative) Urine Urobilinogen 4.0 (<2.0) mg/dL Ur Leukocyte Esterase Small H (Negative) Urine RBC 2 (0-5) /hpf Urine WBC 3 (0-5) /hpf Ur Squamous Epith Cells 17 H (0-4) /hpf Urine Mucus Many H (None) /hpf Urine HCG, Qual (Not Detectd) 04/08/19 Range/Units 11:47 WBC (3.8-10.6) k/uL RBC (3.80-5.40) m/uL Hgb (11.4-16.0) gm/dL Hct (34.0-46.0) % MCV (80.0-100.0) fL MCH (25.0-35.0) pg MCHC (31.0-37.0) g/dL RDW (11.5-15.5) % Plt Count (150-450) k/uL Neutrophils % % Lymphocytes % % Monocytes % % Eosinophils % % Basophils % % Neutrophils # (1.3-7.7) k/uL Lymphocytes # (1.0-4.8) k/uL Monocytes # (0-1.0) k/uL Eosinophils # (0-0.7) k/uL Basophils # (0-0.2) k/uL Manual Slide Review Macrocytosis Sodium (137-145) mmol/L Potassium (3.5-5.1) mmol/L Chloride (98-107) mmol/L Carbon Dioxide (22-30) mmol/L Anion Gap mmol/L BUN (7-17) mg/dL Creatinine (0.52-1.04) mg/dL Est GFR (CKD-EPI)AfAm (>60 ml/min/1.73 sqM) Est GFR (CKD-EPI)NonAf (>60 ml/min/1.73 sqM) Glucose (74-99) mg/dL Calcium (8.4-10.2) mg/dL Total Bilirubin (0.2-1.3) mg/dL AST (14-36) U/L ALT (9-52) U/L Alkaline Phosphatase (38-126) U/L Total Protein (6.3-8.2) g/dL Albumin (3.5-5.0) g/dL Amylase (30-110) U/L Lipase (23-300) U/L Urine Color Urine Appearance (Clear) Urine pH (5.0-8.0) Ur Specific Franklin (1.001-1.035) Urine Protein (Negative) Urine Glucose (UA) (Negative) Urine Ketones (Negative) Urine Blood (Negative) Urine Nitrite (Negative) Urine Bilirubin (Negative) Urine Urobilinogen (<2.0) mg/dL Ur Leukocyte Esterase (Negative) Urine RBC (0-5) /hpf Urine WBC (0-5) /hpf Ur Squamous Epith Cells (0-4) /hpf Urine Mucus (None) /hpf Urine HCG, Qual Not Detected (Not Detectd) Disposition Clinical Impression: Abdominal pain, ETOH abuse, Hepatomegaly Disposition: HOME SELF-CARE Condition: Stable Instructions (If sedation given, give patient instructions): Abdominal Pain (ED) Additional Instructions: Please return to the Emergency Department if symptoms worsen or any other concerns. Follow-up with PCP as discussed. Is patient prescribed a controlled substance at d/c from ED?: No Referrals: None,Stated [Primary Care Provider] - 1-2 days
[2019-04-08 13:58] LABS: Platelet Count 92 k/uL (150-450)
[2019-04-08] MEDS ORDERED: traMADol 50 MG STARTER PACK 3 TAB BTL PO STA (14:40)
[2019-04-08 15:34] VITALS: BP 118/68; PULSE 67; RESP 20
== END 2019-04-08 15:35 | disposition home or self-care (01) ==
LOC: EC 11:00
DX: F10.10 Alcohol abuse, uncomplicated (principal); R16.2 Hepatomegaly with splenomegaly, not elsewhere classified; R10.11 Right upper quadrant pain; K76.0 Fatty (change of) liver, not elsewhere classified; R82.4 Acetonuria; R82.998 Other abnormal findings in urine; R79.89 Other specified abnormal findings of blood chemistry; K21.9 Gastro-esophageal reflux disease without esophagitis; F17.200 Nicotine dependence, unspecified, uncomplicated; Z88.1 Allergy status to other antibiotic agents; Z88.5 Allergy status to narcotic agent; Z79.899 Other long term (current) drug therapy; Z90.49 Acquired absence of other specified parts of digestive tract
CPT/HCPCS: 99284; 96374; 96375 ×2; 96361 ×4; 36415; 80053; 82150; 83690; 85025; 81001; 81025; 74177; J2270; J2405; J1885; Q9967

== ENCOUNTER 2019-05-12 02:17 | Inpatient (IN) | payer OTHER ==
[2019-05-12] MEDS ORDERED: SODIUM CHLORIDE 0.9% 500 ML 500 ML IV STA ×2 (03:00→05:50)
[2019-05-12] MEDS ORDERED: MORPHINE SULFATE 4 MG/ML SYRINGE IV STA ×2 (03:22→05:04)
[2019-05-12] MEDS ORDERED: PANTOPRAZOLE 40 MG/10 ML VIAL IVP STA (03:23)
[2019-05-12 03:39] LABS: ALT 36 U/L (9-52); AST 177 U/L (14-36); African American GFR (CKD) >90 (>60 ml/min/1.73 sqM); Albumin 3.5 g/dL (3.5-5.0); Alkaline Phosphatase 285 U/L (38-126); Anion Gap 14 mmol/L; Blood Urea Nitrogen 5 mg/dL (7-17); Calcium 8.4 mg/dL (8.4-10.2); Carbon Dioxide 26 mmol/L (22-30); Chloride 95 mmol/L (98-107); Glucose 104 mg/dL (74-99); Potassium 2.8 mmol/L (3.5-5.1); Sodium 135 mmol/L (137-145); Total Bilirubin 3.5 mg/dL (0.2-1.3); Total Protein 6.8 g/dL (6.3-8.2)
[2019-05-12 03:54] LABS: INR 1.5 (<1.2); Prothrombin Time 15.4 sec (9.0-12.0)
--- NOTE | 2019-05-12 03:57 | ED ---
GI Bleed HPI - General Chief complaint: GI Bleed Stated complaint: GI Bleed Time Seen by Provider: 05/12/19 02:23 Source: patient Mode of arrival: ambulatory Limitations: no limitations - History of Present Illness Initial comments: This patient is a 38-year-old woman who presents to be evaluated for which she believes is gas or intestinal bleeding. Patient states that over the course the past day she has had about 10-12 bowel movements that had some dark blood associated. She has not noted blood mixed with the stool, but notes that when she does have bowel movement there is some dark blood present. She has had a little bit of bleeding previously with hemorrhoids for states that this seems to be heavier than that. Patient also has had a little bit of a lower abdominal cramping which is intermittent and moderate intensity. Patient has not had any vomiting or coffee-ground emesis. No chest pain, dyspnea, diaphoresis, palpitations, heaviness or syncope MD complaint: gross hematochezia -: hour(s) Quality: cramping Consistency: intermittent Improves with: none Worsens with: none Context: hemorrhoids, alcohol abuse - Related Data Home Medications Medication Instructions Recorded Confirmed Acetaminophen/Diphenhydramine 1 tab PO HS PRN 05/12/19 05/12/19 [Tylenol PM 500-25mg] Previous Rx's Medication Instructions Recorded Acetaminophen Tab [Tylenol] 650 mg PO Q6H PRN #0 05/15/19 Dicyclomine [Bentyl] 20 mg PO QID PRN #60 tab 05/15/19 Ferrous Sulfate [Feosol] 325 mg PO BID #60 tab 05/15/19 HYDROcodone/APAP 7.5-325MG [Zenda 1 each PO Q6H PRN #16 tab 05/15/19 7.5-325] Pantoprazole [Protonix] 40 mg PO DAILY #30 tablet. 05/15/19 Allergies Allergy/AdvReac Type Severity Reaction Status Date / Time cephalexin monohydrate Allergy Rash/Hives Verified 05/12/19 06:48 [From Keflex] codeine Allergy Rash/Hives Verified 05/12/19 06:48 Review of Systems ROS Statement: Those systems with pertinent positive or pertinent negative responses have been documented in the HPI. ROS Other: All systems not noted in ROS Statement are negative. Constitutional: Denies: fever, chills, weakness Respiratory: Denies: cough, dyspnea Cardiovascular: Denies: chest pain, palpitations, dyspnea on exertion, edema, syncope Gastrointestinal: Reports: abdominal pain, diarrhea, melena. Denies: nausea, vomiting, constipation, hematemesis, hematochezia Genitourinary: Denies: dysuria Musculoskeletal: Denies: back pain Skin: Denies: rash Neurological: Denies: headache, weakness Hematological/Lymphatic: Denies: easy bleeding Past Medical History Past Medical History: GERD/Reflux Additional Past Medical History / Comment(s): CURRENT: MULTIPLE EC VISIT AND TESTING FOR ABD PAIN, FOUND TO HAVE KIDNEY STONE (RIGHT), ovarian cyst History of Any Multi-Drug Resistant Organisms: None Reported Past Surgical History: Appendectomy, Orthopedic Surgery Additional Past Surgical History / Comment(s): Left knee surgery Past Anesthesia/Blood Transfusion Reactions: No Reported Reaction Past Psychological History: Depression Smoking Status: Current every day smoker Past Alcohol Use History: Daily Past Drug Use History: Marijuana - Past Family History Mother Family Medical History: Diabetes Mellitus Brother(s) Family Medical History: Diabetes Mellitus Father Family Medical History: Hypertension Additional Family Medical History / Comment(s): BOARDERLINE DM General Exam Limitations: no limitations General appearance: alert, in no apparent distress Head exam: Present: atraumatic, normocephalic Eye exam: Present: normal appearance. Absent: scleral icterus, conjunctival injection ENT exam: Present: normal oropharynx Neck exam: Present: normal inspection Respiratory exam: Present: normal lung sounds bilaterally. Absent: respiratory distress, wheezes, rales, rhonchi, stridor Cardiovascular Exam: Present: normal rhythm, tachycardia, normal heart sounds. Absent: systolic murmur, diastolic murmur, rubs, gallop GI/Abdominal exam: Present: soft. Absent: distended, tenderness, guarding, rebound, rigid, mass, pulsatile mass, hernia Rectal exam: Present: normal inspection, normal rectal tone, heme (+) stool. Absent: mass, tenderness Extremities exam: Present: normal inspection, normal capillary refill. Absent: pedal edema, calf tenderness Back exam: Present: normal inspection Neurological exam: Present: alert Skin exam: Present: warm, dry, intact Course Vital Signs 05/12/19 05/12/19 05/12/19 02:26 03:38 05:29 Temperature 98.8 F 99 F Pulse Rate 115 H 108 H 106 H Respiratory 18 18 16 Rate Blood Pressure 104/59 115/60 112/51 O2 Sat by Pulse 100 100 98 Oximetry 05/12/19 05/12/19 05/12/19 05:46 05:56 06:26 Temperature 98.4 F 98.6 F 98.7 F Pulse Rate 113 H 109 H 104 H Respiratory 16 16 16 Rate Blood Pressure 107/57 111/62 109/61 O2 Sat by Pulse 98 97 98 Oximetry 05/12/19 05/12/19 07:46 08:35 Temperature 98.3 F Pulse Rate 106 H 107 H Respiratory 16 18 Rate Blood Pressure 105/64 107/61 O2 Sat by Pulse 98 100 Oximetry Procedures - Sepsis Sepsis Focused Exam #1 Sepsis Focused Exam Date: 05/12/19 Sepsis Focused Exam Time: 06:07 Sepsis Focused Exam Complete: Yes Vital Signs & RN Notes Reviewed: Yes Capillary Refill: < 2 Seconds: Fingers Peripheral Pulses: Normal: Radial (R) Skin Color: Pallor Respiratory Exam: normal lung sounds Cardiovascular Exam: normal rhythm, tachycardia Medical Decision Making - Lab Data Result diagrams: 05/15/19 07:23 05/15/19 07:23 Lab Results 05/12/19 05/12/19 05/12/19 Range/Units 02:46 02:46 02:46 WBC 4.1 (3.8-10.6) k/uL RBC 1.69 L (3.80-5.40) m/uL Hgb 7.7 L D (11.4-16.0) gm/dL Hct 23.6 L (34.0-46.0) % MCV 139.2 H D (80.0-100.0) fL MCH 45.3 H (25.0-35.0) pg MCHC 32.6 (31.0-37.0) g/dL RDW 15.7 H (11.5-15.5) % Plt Count 147 L D (150-450) k/uL Neutrophils % 73 % Lymphocytes % 20 % Monocytes % 5 % Eosinophils % 1 % Basophils % 0 % Neutrophils # 3.0 (1.3-7.7) k/uL Lymphocytes # 0.8 L (1.0-4.8) k/uL Monocytes # 0.2 (0-1.0) k/uL Eosinophils # 0.1 (0-0.7) k/uL Basophils # 0.0 (0-0.2) k/uL Manual Slide Review Performed Polychromasia Present Hypochromasia Slight Poikilocytosis (manual Present Anisocytosis (manual) Present Macrocytosis Marked A Target Cells Present PT (9.0-12.0) sec INR (<1.2) APTT (22.0-30.0) sec Sodium 135 L (137-145) mmol/L Potassium 2.8 L (3.5-5.1) mmol/L Chloride 95 L (98-107) mmol/L Carbon Dioxide 26 (22-30) mmol/L Anion Gap 14 mmol/L BUN 5 L (7-17) mg/dL Creatinine 0.50 L (0.52-1.04) mg/dL Est GFR (CKD-EPI)AfAm >90 (>60 ml/min/1.73 sqM) Est GFR (CKD-EPI)NonAf >90 (>60 ml/min/1.73 sqM) Glucose 104 H (74-99) mg/dL Lactic Ac Sepsis Rflx Plasma Lactic Acid Paulino 5.8 H* (0.7-2.0) mmol/L Calcium 8.4 (8.4-10.2) mg/dL Total Bilirubin 3.5 H (0.2-1.3) mg/dL AST 177 H (14-36) U/L ALT 36 (9-52) U/L Alkaline Phosphatase 285 H (38-126) U/L Troponin I (0.000-0.034) ng/mL Total Protein 6.8 (6.3-8.2) g/dL Albumin 3.5 (3.5-5.0) g/dL Stool Occult Blood (Negative) Serum Alcohol mg/dL Blood Type Blood Type Recheck Bld Type Recheck Status Antibody Screen Crossmatch Spec Expiration Date 05/12/19 05/12/19 05/12/19 Range/Units 02:46 02:46 02:46 WBC (3.8-10.6) k/uL RBC (3.80-5.40) m/uL Hgb (11.4-16.0) gm/dL Hct (34.0-46.0) % MCV (80.0-100.0) fL MCH (25.0-35.0) pg MCHC (31.0-37.0) g/dL RDW (11.5-15.5) % Plt Count (150-450) k/uL Neutrophils % % Lymphocytes % % Monocytes % % Eosinophils % % Basophils % % Neutrophils # (1.3-7.7) k/uL Lymphocytes # (1.0-4.8) k/uL Monocytes # (0-1.0) k/uL Eosinophils # (0-0.7) k/uL Basophils # (0-0.2) k/uL Manual Slide Review Polychromasia Hypochromasia Poikilocytosis (manual Anisocytosis (manual) Macrocytosis Target Cells PT 15.4 H (9.0-12.0) sec INR 1.5 H (<1.2) APTT 31.0 H (22.0-30.0) sec Sodium (137-145) mmol/L Potassium (3.5-5.1) mmol/L Chloride (98-107) mmol/L Carbon Dioxide (22-30) mmol/L Anion Gap mmol/L BUN (7-17) mg/dL Creatinine (0.52-1.04) mg/dL Est GFR (CKD-EPI)AfAm (>60 ml/min/1.73 sqM) Est GFR (CKD-EPI)NonAf (>60 ml/min/1.73 sqM) Glucose (74-99) mg/dL Lactic Ac Sepsis Rflx Plasma Lactic Acid Paulino (0.7-2.0) mmol/L Calcium (8.4-10.2) mg/dL Total Bilirubin (0.2-1.3) mg/dL AST (14-36) U/L ALT (9-52) U/L Alkaline Phosphatase (38-126) U/L Troponin I <0.012 (0.000-0.034) ng/mL Total Protein (6.3-8.2) g/dL Albumin (3.5-5.0) g/dL Stool Occult Blood (Negative) Serum Alcohol mg/dL Blood Type O Positive Blood Type Recheck O Pos Bld Type Recheck Status No Antibody Screen NEGATIVE Crossmatch See Detail Spec Expiration Date 05/15/2019 - 234505/12/19 05/12/19 05/12/19 Range/Units 02:56 04:03 04:32 WBC (3.8-10.6) k/uL RBC (3.80-5.40) m/uL Hgb (11.4-16.0) gm/dL Hct (34.0-46.0) % MCV (80.0-100.0) fL MCH (25.0-35.0) pg MCHC (31.0-37.0) g/dL RDW (11.5-15.5) % Plt Count (150-450) k/uL Neutrophils % % Lymphocytes % % Monocytes % % Eosinophils % % Basophils % % Neutrophils # (1.3-7.7) k/uL Lymphocytes # (1.0-4.8) k/uL Monocytes # (0-1.0) k/uL Eosinophils # (0-0.7) k/uL Basophils # (0-0.2) k/uL Manual Slide Review Polychromasia Hypochromasia Poikilocytosis (manual Anisocytosis (manual) Macrocytosis Target Cells PT (9.0-12.0) sec INR (<1.2) APTT (22.0-30.0) sec Sodium (137-145) mmol/L Potassium (3.5-5.1) mmol/L Chloride (98-107) mmol/L Carbon Dioxide (22-30) mmol/L Anion Gap mmol/L BUN (7-17) mg/dL Creatinine (0.52-1.04) mg/dL Est GFR (CKD-EPI)AfAm (>60 ml/min/1.73 sqM) Est GFR (CKD-EPI)NonAf (>60 ml/min/1.73 sqM) Glucose (74-99) mg/dL Lactic Ac Sepsis Rflx Y Plasma Lactic Acid Paulino (0.7-2.0) mmol/L Calcium (8.4-10.2) mg/dL Total Bilirubin (0.2-1.3) mg/dL AST (14-36) U/L ALT (9-52) U/L Alkaline Phosphatase (38-126) U/L Troponin I (0.000-0.034) ng/mL Total Protein (6.3-8.2) g/dL Albumin (3.5-5.0) g/dL Stool Occult Blood Positive H (Negative) Serum Alcohol <10 mg/dL Blood Type Blood Type Recheck Bld Type Recheck Status Antibody Screen Crossmatch Spec Expiration Date Critical Care Time Critical Care Time: Yes (35 minutes) Disposition Clinical Impression: Elevated lactic acid level, GI bleed, ETOH abuse, Nausea & vomiting, Elevated liver enzymes Disposition: ADMITTED IP TO THIS HOSP Condition: Serious
[2019-05-12] MEDS ORDERED: POTASSIUM CHLORIDE ER 20 MEQ TAB.ER PO STA (04:12)
[2019-05-12 04:21] LABS: Basophils % (A) 0 %; Eosinophils # (A) 0.1 k/uL (0-0.7); Eosinophils % (A) 1 %; HCT 23.6 % (34.0-46.0); Hypochromasia Slight; Lymphocytes # (A) 0.8 k/uL (1.0-4.8); Lymphocytes % (A) 20 %; MCHC 32.6 g/dL (31.0-37.0); Macrocytosis Marked; Monocytes # (A) 0.2 k/uL (0-1.0); Monocytes % (A) 5 %; Neutrophils % (A) 73 %; RBC 1.69 m/uL (3.80-5.40); RDW 15.7 % (11.5-15.5); WBC 4.1 k/uL (3.8-10.6)
[2019-05-12 04:28] LABS: HGB 7.7 gm/dL (11.4-16.0); MCH 45.3 pg (25.0-35.0)
[2019-05-12 04:29] LABS: MCV 139.2 fL (80.0-100.0); Platelet Count 147 k/uL (150-450)
[2019-05-12 05:09] LABS: Anisocytosis (M) Present; Polychromasia Present
[2019-05-12 05:10] LABS: Target Cells Present
[2019-05-12 05:12] LABS: Poikilocytosis (M) Present
--- NOTE | 2019-05-12 05:41 | CT ---
EXAMINATION TYPE: CT abdomen pelvis wo con DATE OF EXAM: 05/12/2019 COMPARISON: April 08, 2019 HISTORY: Patient presents with lower abdominal pain. CT DLP: 354.2 mGycm Automated exposure control for dose reduction was used. TECHNIQUE: Helical acquisition of images was performed from the lung bases through the pelvis. FINDINGS: Lung bases are clear. There is no pleural effusion. Heart size is normal. There is diffuse fatty infiltration of the liver. Liver is enlarged and measures 24 cm in length. Spl een is intact. Spleen is large and measures 12.5 cm. There is no evidence of pancreatic mass. The paty e ducts are not dilated. Gallbladder has intermediate density. There is no adrenal mass. The stomach is intact. The kidneys show normal size. There is no hydronephrosis. Ureters are not dilated. There is no retrop eritoneal adenopathy. Bladder distends smoothly. There is no inguinal hernia. There is no free fluid in the pelvis. Uterus is anteverted. There is probably small amount of free fluid adjacent to the right ovary. There is mild small bowel mesenteric edema. There is minimal fat stranding in the right paracolic gut ter. I see no intestinal wall thickening. There is no evidence of a bowel obstruction. There is no fr ee air. There are clips apparently from appendectomy. Lumbar vertebra show normal spacing and alignment. Posterior elements are intact. Bony pelvis is inta ct. IMPRESSION: There is hepatosplenomegaly. Significant fatty replacement of the liver. Compared to last exam there is new mild small bowel mesenteric edema and mild fat stranding on the ri ght side that could relate to some intestinal mild inflammatory process. There is tiny amount of free fluid on the right side in the pelvis that could relate to ruptured ovarian cyst.
[2019-05-12] MEDS ORDERED: MAGNESIUM SULFATE-D5W PMX 1 GM in DEXTROSE/WATER 1 100ML.BAG IVPB ONE (05:51)
[2019-05-12] MEDS ORDERED: LEVOFLOXACIN 750MG-D5W PMX 750 MG in DEXTROSE/WATER 1 150ML.BAG IVPB STA (05:51)
[2019-05-12] MEDS ORDERED: LORazepam 2 MG/ML INJ IV PRN ×3 (06:14)
[2019-05-12] MEDS ORDERED: THIAMINE 100 MG/ML 2 ML VIAL IM STA (06:14)
[2019-05-12] MEDS ORDERED: ACETAMINOPHEN TAB 325 MG TAB PO PRN (06:15)
[2019-05-12] MEDS ORDERED: NALOXONE 0.4 MG/ML 1 ML VIAL IV PRN (06:15)
[2019-05-12] MEDS ORDERED: SODIUM CHLORIDE 0.9% 1,000 ML IV SCH (06:15)
[2019-05-12] MEDS ORDERED: ONDANSETRON 4 MG/2 ML VIAL IVP PRN ×2 (06:15→10:00)
[2019-05-12] MEDS ORDERED: POTASSIUM CHLORIDE 20 MEQ in WATER FOR INJECTION 1 100ML.BAG IVPB STA (08:15)
[2019-05-12] MEDS ORDERED: PANTOPRAZOLE 40 MG/10 ML VIAL IV SCH (09:00)
[2019-05-12] MEDS ORDERED: PHYTONADIONE ORAL 5 MG/5 ML ORAL.SYRG PO STA (10:01)
--- NOTE | 2019-05-12 10:02 | P.HPIM ---
History of Present Illness H&P Date: 05/12/19 Chief Complaint: bright red blood per rectum Patient is a 38-year-old female with a past medical history of alcohol abuse, colitis, prior hemorrhoid, hepatomegaly, and chronic neuropathy who presented to the emergency department with complaints of bright red blood per rectum. In the emergency department she underwent an extensive evaluation. She was tachycardic on arrival with a heart rate of 1:15. Laboratory analysis showed hemoglobin of 7.7 down from 10.8-1 month ago and 12.5 5 months ago. She is on have a lactic acid of 5.8, sodium 135, potassium of 2.8. Her fecal occult blood was positive. She was given 1 unit of packed red blood cells and IV Prot mook. She underwent a CT abdomen and pelvis which showed small bowel mesenteric edema, free fluid in the right side of the pelvis possibly related to ruptured ovarian cysts, and hepatosplenomegaly. She was admitted for further monitoring and care. She was also found to have an elevated INR at 1.5 suspect to be secondary to hepatic disease. Patient seen and examined at bedside. She reports that for the last 2 days she isn't having right bright red blood per rectum. She is going to the bathroom approximately 6-12 times per day. She feels she can always go to the bathroom. There is no stool mixed and is simply bright red blood. She is having some lower abdominal pain that goes across both the right and left side. It is constant all within she has sharp intermittent pain. She is not sure what exacerbates the sharp intermittent pain. She does report that lying still helps. She does not have any change in her pain with eating. She has had some nausea but no vomiting. She reports a slight decreased appetite. Today at work she was feeling very lightheaded as though she would pass out she therefore decided to seek medical attention. She does report some palpitations at that time but no chest pain or shortness of breath. She denies any recent weight loss. She reports that she has a history of hemorrhoids in the past with the bleeding was different. She is also has had a colonoscopy and an EGD in the past. SHe deneis any family history of colon cancer She reports that she drinks half a pint daily. Before she was drinking one to 2 pints daily. She cannot remember the last time she limited without consuming alcohol. She reports no history of alcohol withdrawal in the past but does state that in the morning she wakes up anxious and shaky. Colonoscopy and EGD 12/16/[address] Haines. Gastritis with small erosions, small hiatal hernia, mild nonspecific colitis in the transverse colon, internal and external hemorrhoids. Her transverse colon biopsy at that point in time for premature benign colonic mucosa with a normal architecture and minimal mucosal hyperplasia. Stomach biopsy showed mild chronic gastritis and was helicobacter negative. Review of Systems Pertinent positives and negatives as discussed in HPI, a complete review of systems was performed and all other systems are negative. Past Medical History Past Medical History: GERD/Reflux, Liver Disease, Renal Disease Additional Past Medical History / Comment(s): ETOH abuse, abdominal pain, colitis, lower GI bleed, hepatic steatosis, hypokalemia, hypoalbuminemia, pancytopenia, neuropathy in bilateral hands/legs and tops of her feet, bilateral ovarian cysts, R sided kidney stone. History of Any Multi-Drug Resistant Organisms: None Reported Past Surgical History: Appendectomy, Orthopedic Surgery Additional Past Surgical History / Comment(s): 2015 EGD and colonoscopy, left knee surgery x 4 Past Anesthesia/Blood Transfusion Reactions: No Reported Reaction Additional Past Anesthesia/Blood Transfusion Reaction / Comment(s): Pt is currently receiving blood without reaction so far. 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 Lives with her boyfriend and 2 children in the house. Drinks half a pint daily. Smokes approximately half a pack per day. - Past Family History Mother Family Medical History: Diabetes Mellitus Additional Family Medical History / Comment(s): Borderline HTN Brother(s) Family Medical History: Diabetes Mellitus Father Family Medical History: Hypertension Additional Family Medical History / Comment(s): BOARDERLINE DM Medications and Allergies Home Medications Medication Instructions Recorded Confirmed Type Famotidine [Pepcid] 20 mg PO BID 06/28/17 05/12/19 History Acetaminophen Tab [Tylenol] 1,000 mg PO Q6H PRN 04/08/19 05/12/19 History Acetaminophen/Diphenhydramine 1 tab PO HS PRN 05/12/19 05/12/19 History [Tylenol PM 500-25mg] Acetaminophen/Diphenhydramine 2 tab PO HS 05/12/19 05/12/19 History [Tylenol PM 500-25mg] Allergies Allergy/AdvReac Type Severity Reaction Status Date / Time cephalexin monohydrate Allergy Rash/Hives Verified 05/12/19 06:48 [From Keflex] codeine Allergy Rash/Hives Verified 05/12/19 06:48 Physical Exam Osteopathic Statement: *. No significant issues noted on an osteopathic structural exam other than those noted in the History and Physical/Consult. Vitals: Vital Signs Temp Pulse Pulse Resp BP BP Pulse Ox 05/12/19 08:54 97.3 F L 105 H 16 110/61 100 05/12/19 08:51 18 05/12/19 08:35 107 H 18 107/61 100 05/12/19 07:46 98.3 F 106 H 16 105/64 98 05/12/19 06:26 98.7 F 104 H 16 109/61 98 05/12/19 05:56 98.6 F 109 H 16 111/62 97 05/12/19 05:46 98.4 F 113 H 16 107/57 98 05/12/19 05:29 99 F 106 H 16 112/51 98 05/12/19 03:38 108 H 18 115/60 100 05/12/19 02:26 98.8 F 115 H 18 104/59 100 Intake and Output 05/11/19 05/12/19 05/12/19 22:59 06:59 14:59 Intake Total 0 310 Balance 0 310 Intake: Blood Product 0 310 Rc As-1 Unit 0 310 [id number] Other: Voiding Method Toilet Weight 49.895 kg 51.1 kg General: ill appearing, pale, no distress, appears at stated age, normal weight Derm: no unusual rashes/lesions no unusual ecchymoses, warm, dry Head: atraumatic, normocephalic, symmetric Eyes: EOMI, no lid lag, anicteric sclera, pupils equal round reactive to light ENT: Nose and ears atraumatic, no thrush, no pharyngeal erythema Neck: No thyromegaly, no cervical lymphadenopathy, trachea midline, supple Mouth: no lip lesion, mucus membranes moist Cardiovascular: S1S2 tachy, no murmur, positive posterior tibial pulse bila teral, no edema, capillary refill less than 2 seconds Lungs: CTA bilateral, no rhonchi, no rales , no accessory muscle use Abdominal: soft, +tender to palpation RLQ and LLQ, no guarding, no appreciable organomegaly, normal bowel sounds Ext: no gross muscle atrophy, muscle strength 5 out of 5 in all 4 extremities grossly, no contractures, Neuro: CN II-XI grossly intact, light touch intact all 4 extremities, finger to nose within normal limits, no asterixis Psych: Alert, oriented, appropriate affect Results CBC & Chem 7: 05/12/19 02:46 05/12/19 02:46 Labs: Abnormal Lab Results - Last 24 Hours (Table) 05/12/19 05/12/19 05/12/19 Range/Units 02:46 02:46 02:46 RBC 1.69 L (3.80-5.40) m/uL Hgb 7.7 L D (11.4-16.0) gm/dL Hct 23.6 L (34.0-46.0) % MCV 139.2 H D (80.0-100.0) fL MCH 45.3 H (25.0-35.0) pg RDW 15.7 H (11.5-15.5) % Plt Count 147 L D (150-450) k/uL Lymphocytes # 0.8 L (1.0-4.8) k/uL Macrocytosis Marked A PT (9.0-12.0) sec INR (<1.2) APTT (22.0-30.0) sec Sodium 135 L (137-145) mmol/L Potassium 2.8 L (3.5-5.1) mmol/L Chloride 95 L (98-107) mmol/L BUN 5 L (7-17) mg/dL Creatinine 0.50 L (0.52-1.04) mg/dL Glucose 104 H (74-99) mg/dL Plasma Lactic Acid Paulino 5.8 H* (0.7-2.0) mmol/L Total Bilirubin 3.5 H (0.2-1.3) mg/dL AST 177 H (14-36) U/L Alkaline Phosphatase 285 H (38-126) U/L Stool Occult Blood (Negative) Crossmatch 05/12/19 05/12/19 05/12/19 Range/Units 02:46 02:46 02:56 RBC (3.80-5.40) m/uL Hgb (11.4-16.0) gm/dL Hct (34.0-46.0) % MCV (80.0-100.0) fL MCH (25.0-35.0) pg RDW (11.5-15.5) % Plt Count (150-450) k/uL Lymphocytes # (1.0-4.8) k/uL Macrocytosis PT 15.4 H (9.0-12.0) sec INR 1.5 H (<1.2) APTT 31.0 H (22.0-30.0) sec Sodium (137-145) mmol/L Potassium (3.5-5.1) mmol/L Chloride (98-107) mmol/L BUN (7-17) mg/dL Creatinine (0.52-1.04) mg/dL Glucose (74-99) mg/dL Plasma Lactic Acid Paulino (0.7-2.0) mmol/L Total Bilirubin (0.2-1.3) mg/dL AST (14-36) U/L Alkaline Phosphatase (38-126) U/L Stool Occult Blood Positive H (Negative) Crossmatch See Detail CT scan - abdomen: report reviewed CT scan - pelvis: report reviewed Thrombosis Risk Factor Assmnt - DVT/VTE Prophylaxis DVT/VTE Prophylaxis: Mechanical Prophylaxis ordered - Choose All That Apply Any of the Below Risk Factors Present?: Yes Each Factor Represents 1 point: Hx of IBD Other Risk Factors: No Other congenital or acquired thrombophilia - If yes, enter type in comment: No Thrombosis Risk Factor Assessment Total Risk Factor Score: 1 Thrombosis Risk Factor Assessment Level: Low Risk Assessment and Plan Assessment: Acute blood loss anemia secondary to suspected lower GI bleed -Serial CBCs every 6 hours -Nothing by mouth -PPI -GI consult Coagulopathy suspect secondary to liver disease -If continues to have GI bleeding then will need FFP -Given 1 dose of vitamin K -Repeat INR in a.m. Lactic acidosis -Likely secondary to hypoperfusion in conjunction with liver disease -Repeat in 6 hours -Secondary to sepsis Hepatic steatosis with chronically elevated liver enzymes -Alcohol cessation -Trend liver enzymes Hypokalemia -Replace and recheck Alcohol abuse with impending delirium tremens -Multivitamin bag 1 now then start folic acid and thiamine supplementation orally in the morning -CIWA protocol -Secondary to fatty infiltration of the liver on computed tomography and known liver dysfunction will avoid Librium as able Tobacco abuse -Cessation -Nicotine replacement Chronic neuropathy of bilateral hands and feet -Continue outpatient follow-up The patient is admitted with an anticipated greater than 2 midnight stay for evaluation of GI bleed requiring packed red blood cell transfusion. Surrogate decision-maker: Parents CODE STATUS:Full DVT prophylaxis: SCDs Discussed with: Patient. nursing Anticipated discharge date: 2-[address]: home A total of 65 minutes was spent on the care of this complex patient more than 50% of the time was spent in counseling and care coordination.
[2019-05-12] MEDS: HYDROcodone/APAP 5-325MG 1 EACH TAB PO PRN ×3 (11:06→22:55)
[2019-05-12 12:12] LABS: Anisocytosis Marked; HCT 24.5 % (34.0-46.0); Hypochromasia Slight; MCH 40.5 pg (25.0-35.0); MCHC 32.5 g/dL (31.0-37.0); Macrocytosis Marked; Mean Platelet Volume 6.6; Platelet Count 126 k/uL (150-450); Poikilocytosis Slight; RBC 1.97 m/uL (3.80-5.40); WBC 3.2 k/uL (3.8-10.6)
[2019-05-12 12:19] LABS: RDW 25.8 % (11.5-15.5)
[2019-05-12 12:20] LABS: MCV 124.4 fL (80.0-100.0)
[2019-05-12] MEDS ORDERED: BISACODYL 5 MG TABLET.DR PO STA (15:13)
[2019-05-12] MEDS ORDERED: PEG 3350-NA SULF,BICARB,CL/KCL 4,000 ML BOTTLE PO ONE (15:20)
[2019-05-12] MEDS ORDERED: THIAMINE 100 MG TAB PO SCH (17:30)
[2019-05-12 17:39] LABS: Anisocytosis Marked; HCT 23.1 % (34.0-46.0); HGB 7.6 gm/dL (11.4-16.0); Hypochromasia Moderate; MCH 41.1 pg (25.0-35.0); MCV 124.7 fL (80.0-100.0); Macrocytosis Marked; Mean Platelet Volume 7.4; Platelet Count 116 k/uL (150-450); Poikilocytosis Moderate; RBC 1.85 m/uL (3.80-5.40); WBC 3.3 k/uL (3.8-10.6)
[2019-05-12] MEDS ORDERED: DICYCLOMINE 20 MG TAB PO PRN (22:11)
--- NOTE | 2019-05-12 22:33 | P.CONS ---
History of Present Illness - Reason for Consult Consult date: 05/12/19 Blood per rectum Requesting physician: Bethany Bella - Chief Complaint Blood per rectum - History of Present Illness 38-year-old female with a medical history significant for alcohol abuse, nonspecific colitis diagnosed on prior colonoscopy, hemorrhoids, hepatomegaly an d neuropathy who presented to the hospital with complaints of blood per rectum. The patient reports 2 days of rectal bleeding. She reports at least 6-12 bloody bowel movements daily. Currently she is had approximately 2-3 bloody bowel movements today. She denies any gross pain with her symptoms but does have lower abdominal cramping below the bellybutton. The patient also reports nausea associated with her symptoms with no episodes of vomiting. She also reports decreased oral intake with her symptoms. The patient previously had endoscopic evaluation in 12/2014 with EGD significant for gastritis with small erosions and a hiatal hernia and colonoscopy significant for mild nonspecific colitis in the transverse colon as well as internal and external hemorrhoids with biopsies of the colon significant for benign colonic mucosa and biopsies of the stomach negative. The patient reports after this she was given a probiotic has never been on any other treatment for her colitis. She denies any prior episodes similar to her current presentation. The patient has a history of heavy alcohol abuse and is currently drinking a half pints of liquor daily. Hemoglobin is currently 7.6 status post transfusion from 8 previously with WBC 3.3, platelet count 216,000, INR 1.5, total bilirubin 3.5, alkaline phosphatase 285, AST 177 and ALT 36. Stool does test positive for blood. Review of Systems REVIEW OF SYSTEMS: CONSTITUTIONAL: Denies any fevers, chills, weight change or fatigue. CARDIOVASCULAR: Denies any chest pain, palpitations high or low blood pressures RESPIRATORY: Denies any shortness of breath, hemoptysis or cough. GENITOURINARY: No dysuria or hematuria. MUSCULOSKELETAL: No weakness reported. SKIN: Denies any new rashes or lesions, jaundice or pallor. PSYCHIATRIC: Denies any depression or anxiety, history of alcohol abuse. NEUROLOGY: Denies headache, denies any new focal deficits. EARS/NOSE/THROAT: No recent hearing change, congestion, nasal discharge or sore throat. EYES: No pain in eyes, discharge or change in vision. GASTROINTESTINAL: As per HPI. Past Medical History Past Medical History: GERD/Reflux, Liver Disease, Renal Disease Additional Past Medical History / Comment(s): ETOH abuse, abdominal pain, colitis, lower GI bleed, hepatic steatosis, hypokalemia, hypoalbuminemia, pancytopenia, neuropathy in bilateral hands/legs and tops of her feet, bilateral ovarian cysts, R sided kidney stone. History of Any Multi-Drug Resistant Organisms: None Reported Past Surgical History: Appendectomy, Orthopedic Surgery Additional Past Surgical History / Comment(s): 2015 EGD and colonoscopy, left knee surgery x 4 Past Anesthesia/Blood Transfusion Reactions: No Reported Reaction Additional Past Anesthesia/Blood Transfusion Reaction / Comm: Pt is currently receiving blood without reaction so far. Smoking Status: Current every day smoker Past Alcohol Use History: Daily, Heavy Past Drug Use History: Marijuana - Past Family History Mother Family Medical History: Diabetes Mellitus Additional Family Medical History / Comment(s): Borderline HTN Brother(s) Family Medical History: Diabetes Mellitus Father Family Medical History: Hypertension Additional Family Medical History / Comment(s): BOARDERLINE DM Medications and Allergies Home Medications Medication Instructions Recorded Confirmed Type Famotidine [Pepcid] 20 mg PO BID 06/28/17 05/12/19 History Acetaminophen Tab [Tylenol] 1,000 mg PO Q6H PRN 04/08/19 05/12/19 History Acetaminophen/Diphenhydramine 1 tab PO HS PRN 05/12/19 05/12/19 History [Tylenol PM 500-25mg] Acetaminophen/Diphenhydramine 2 tab PO HS 05/12/19 05/12/19 History [Tylenol PM 500-25mg] Allergies Allergy/AdvReac Type Severity Reaction Status Date / Time cephalexin monohydrate Allergy Rash/Hives Verified 05/12/19 06:48 [From Keflex] codeine Allergy Rash/Hives Verified 05/12/19 06:48 Physical Exam Vitals: Vital Signs Temp Pulse Pulse Resp BP BP Pulse Ox 05/12/19 11:55 97.6 F 109 H 16 104/55 98 05/12/19 08:54 97.3 F L 105 H 16 110/61 100 05/12/19 08:51 18 05/12/19 08:35 107 H 18 107/61 100 05/12/19 07:46 98.3 F 106 H 16 105/64 98 05/12/19 06:26 98.7 F 104 H 16 109/61 98 05/12/19 05:56 98.6 F 109 H 16 111/62 97 05/12/19 05:46 98.4 F 113 H 16 107/57 98 05/12/19 05:29 99 F 106 H 16 112/51 98 05/12/19 03:38 108 H 18 115/60 100 05/12/19 02:26 98.8 F 115 H 18 104/59 100 Intake and Output 05/11/19 05/12/19 05/12/19 22:59 06:59 14:59 Intake Total 0 2260 Balance 0 2260 Intake: Intake, IV Titration 1590 Amount Levofloxacin 750Mg-D5w 150 Pmx 750 mg In Dextrose/ Water 1 150ml.bag @ 100 mls/hr IVPB ONCE STA Rx#: [id number] Magnesium Sulfate-D5w Pmx 100 1 gm In Dextrose/Water 1 100ml.bag @ 100 mls/hr IVPB ONCE ONE Rx#: [id number] Potassium Chloride 20 meq 100 In Water For Injection 1 100ml.bag @ 50 mls/hr IVPB ONCE STA Rx#: [id number] Sodium Chloride 0.9% 1, 240 000 ml @ 20 mls/hr IV . Q24H FUENTES Rx#:[id number] Sodium Chloride 0.9% 500 500 ml 500 ml @ 1000 mls/hr IV .Q30M STA Rx#: [id number] Sodium Chloride 0.9% 500 500 ml 500 ml @ 1000 mls/hr IV .Q30M STA Rx#: [id number] Oral 360 Blood Product 0 310 Rc As-1 Unit 0 310 [id number] Other: Voiding Method Toilet # Voids 1 # Bowel Movements 1 Weight 49.895 kg 51.1 kg On physical examination, patient appears comfortable in no apparent distress. HEAD: Normocephalic, atraumatic. EYES: Scleral icterus. No conjunctival injection. MOUTH: No lesions, tongue midline. NECK: Trachea midline, no gross abnormalities. CHEST: Clear to auscultation with no wheezing or rhonchi appreciated. HEART: Regular rate and rhythm. ABDOMEN: Soft, mildly tender to palpation. Bowel sounds are positive. No organomegaly. No guarding or rigidity. EXTREMITIES: No pedal edema. SKIN: No rashes, jaundice. NEUROLOGIC: Alert and oriented x3. No focal deficits. Results CBC & Chem 7: 05/12/19 17:12 05/12/19 02:46 Labs: Abnormal Lab Results - Last 24 Hours (Table) 05/12/19 05/12/19 05/12/19 Range/Units 02:46 02:46 02:46 WBC (3.8-10.6) k/uL RBC 1.69 L (3.80-5.40) m/uL Hgb 7.7 L D (11.4-16.0) gm/dL Hct 23.6 L (34.0-46.0) % MCV 139.2 H D (80.0-100.0) fL MCH 45.3 H (25.0-35.0) pg RDW 15.7 H (11.5-15.5) % Plt Count 147 L D (150-450) k/uL Lymphocytes # 0.8 L (1.0-4.8) k/uL Macrocytosis Marked A PT (9.0-12.0) sec INR (<1.2) APTT (22.0-30.0) sec Sodium 135 L (137-145) mmol/L Potassium 2.8 L (3.5-5.1) mmol/L Chloride 95 L (98-107) mmol/L BUN 5 L (7-17) mg/dL Creatinine 0.50 L (0.52-1.04) mg/dL Glucose 104 H (74-99) mg/dL Plasma Lactic Acid Paulino 5.8 H* (0.7-2.0) mmol/L Total Bilirubin 3.5 H (0.2-1.3) mg/dL AST 177 H (14-36) U/L Alkaline Phosphatase 285 H (38-126) U/L Stool Occult Blood (Negative) Crossmatch 05/12/19 05/12/19 05/12/19 Range/Units 02:46 02:46 02:56 WBC (3.8-10.6) k/uL RBC (3.80-5.40) m/uL Hgb (11.4-16.0) gm/dL Hct (34.0-46.0) % MCV (80.0-100.0) fL MCH (25.0-35.0) pg RDW (11.5-15.5) % Plt Count (150-450) k/uL Lymphocytes # (1.0-4.8) k/uL Macrocytosis PT 15.4 H (9.0-12.0) sec INR 1.5 H (<1.2) APTT 31.0 H (22.0-30.0) sec Sodium (137-145) mmol/L Potassium (3.5-5.1) mmol/L Chloride (98-107) mmol/L BUN (7-17) mg/dL Creatinine (0.52-1.04) mg/dL Glucose (74-99) mg/dL Plasma Lactic Acid Paulino (0.7-2.0) mmol/L Total Bilirubin (0.2-1.3) mg/dL AST (14-36) U/L Alkaline Phosphatase (38-126) U/L Stool Occult Blood Positive H (Negative) Crossmatch See Detail 05/12/19 05/12/19 Range/Units 11:14 11:14 WBC 3.2 L (3.8-10.6) k/uL RBC 1.97 L (3.80-5.40) m/uL Hgb 8.0 L (11.4-16.0) gm/dL Hct 24.5 L (34.0-46.0) % MCV 124.4 H D (80.0-100.0) fL MCH 40.5 H (25.0-35.0) pg RDW 25.8 H (11.5-15.5) % Plt Count 126 L (150-450) k/uL Lymphocytes # (1.0-4.8) k/uL Macrocytosis Marked A PT (9.0-12.0) sec INR (<1.2) APTT (22.0-30.0) sec Sodium (137-145) mmol/L Potassium (3.5-5.1) mmol/L Chloride (98-107) mmol/L BUN (7-17) mg/dL Creatinine (0.52-1.04) mg/dL Glucose (74-99) mg/dL Plasma Lactic Acid Paulino 2.8 H* (0.7-2.0) mmol/L Total Bilirubin (0.2-1.3) mg/dL AST (14-36) U/L Alkaline Phosphatase (38-126) U/L Stool Occult Blood (Negative) Crossmatch CT scan - abdomen: report reviewed (Findings of hepatosplenomegaly on computed tomography scan of the abdomen) Assessment and Plan (1) GI bleed Narrative/Plan: 38-year-old female with medical history significant for alcohol abuse presenting with multiple episodes of blood per rectum. She denies any gross abdominal pain but does report lower abdominal cramping in association with her symptoms. No prior episodes similar to current presentation. She reports multiple episodes of armando bleeding per rectum. She did have evaluation with EGD significant for hiatal hernia and gastritis as well as colonoscopy significant for hemorrhoids and mild nonspecific transverse colon inflammation in 2015. She denies any treatment in the past for colitis and reports that she was taking a probiotic for lower GI symptoms. Unclear if his bleeding is secondary to diverticular disease, AVM, inflammatory process, or upper GI bleed. Current Visit: No Status: Acute Code(s): K92.2 - GASTROINTESTINAL HEMORRHAGE, UNSPECIFIED SNOMED Code(s): 86990780 (2) Elevated liver enzymes Narrative/Plan: Elevation in liver enzymes and predominantly a cholestatic pattern with typical ratio of AST: ALT and a 2:1 pattern consistent with alcoholic liver disease. Last viral hepatitis panel performed in 2017. Current Visit: Yes Status: Acute Code(s): R74.8 - ABNORMAL LEVELS OF OTHER SERUM ENZYMES SNOMED Code(s): 352389157 (3) ETOH abuse Current Visit: No Status: Acute Code(s): F10.10 - ALCOHOL ABUSE, UNCOMPLICATED SNOMED Code(s): 09440888 Plan: Supportive care Monitor hemoglobin and hematocrit and transfuse as needed Monitor stool output ESR and CRP ordered Alcohol abstinence Acute viral hepatitis panel or ordered Continue to monitor CMP, INR (vitamin K ordered) Dicyclomine as needed for abdominal cramping ordered Bowel prep ordered with patient nothing by mouth after midnight for EGD and colonoscopy tomorrow for further evaluation of GI bleed Monitor for signs and symptoms of alcohol withdrawal Continue supplementation of vitamins and minerals Thank you for allowing us to participate in the care of this patient we will continue to follow
[2019-05-12] MEDS: MELATONIN 5 MG TABLET PO PRN (22:55)
[2019-05-12] MEDS: PANTOPRAZOLE 40 MG/10 ML VIAL IV SCH (22:57)
[2019-05-13] MEDS: HYDROcodone/APAP 5-325MG 1 EACH TAB PO PRN ×4 (04:08→20:14)
[2019-05-13 06:25] LABS: INR 1.4 (<1.2); Prothrombin Time 13.9 sec (9.0-12.0)
[2019-05-13 06:29] LABS: ALT 36 U/L (9-52); AST 113 U/L (14-36); African American GFR (CKD) >90 (>60 ml/min/1.73 sqM); Albumin 2.4 g/dL (3.5-5.0); Alkaline Phosphatase 189 U/L (38-126); Anion Gap 4 mmol/L; Blood Urea Nitrogen 3 mg/dL (7-17); Calcium 7.5 mg/dL (8.4-10.2); Carbon Dioxide 28 mmol/L (22-30); Chloride 106 mmol/L (98-107); Glucose 77 mg/dL (74-99); Magnesium 1.9 mg/dL (1.6-2.3); Phosphorus 2.3 mg/dL (2.5-4.5); Potassium 4.4 mmol/L (3.5-5.1); Sodium 138 mmol/L (137-145); Total Bilirubin 4.1 mg/dL (0.2-1.3); Total Protein 5.2 g/dL (6.3-8.2)
[2019-05-13] MEDS: PANTOPRAZOLE 40 MG/10 ML VIAL IV SCH (08:17)
[2019-05-13] MEDS: NICOTINE 14MG/24HR PATCH TRANSDERM SCH (08:18)
[2019-05-13 08:59] LABS: Anisocytosis Marked; HGB 7.1 gm/dL (11.4-16.0); Hypochromasia Marked; MCH 42.8 pg (25.0-35.0); MCHC 33.7 g/dL (31.0-37.0); MCV 127.2 fL (80.0-100.0); Macrocytosis Marked; Mean Platelet Volume 7.3; Platelet Count 103 k/uL (150-450); Poikilocytosis Slight; RBC 1.65 m/uL (3.80-5.40); RDW 25.7 % (11.5-15.5); WBC 2.7 k/uL (3.8-10.6)
[2019-05-13 09:44] LABS: C Reactive Protein 35.7 mg/L (<10.0)
[2019-05-13 11:48] LABS: Anisocytosis Marked; HCT 22.8 % (34.0-46.0); HGB 7.4 gm/dL (11.4-16.0); Hypochromasia Moderate; MCH 40.9 pg (25.0-35.0); MCHC 32.5 g/dL (31.0-37.0); MCV 125.9 fL (80.0-100.0); Macrocytosis Marked; Mean Platelet Volume 7.7; Platelet Count 105 k/uL (150-450); Poikilocytosis Slight; RBC 1.81 m/uL (3.80-5.40); WBC 3.1 k/uL (3.8-10.6)
[2019-05-13 11:50] LABS: RDW 25.4 % (11.5-15.5)
[2019-05-13 13:33] LABS: Hepatitis A Antibody IgM Non-Reactive (Non-Reactive); Hepatitis B Core IgM Non-Reactive (Non-Reactive); Hepatitis B Surface Antigen Non-Reactive (Non-Reactive); Hepatitis C IgG Antibody Non-Reactive (Non-Reactive)
[2019-05-13] MEDS ORDERED: PROPOFOL 10 MG/ML 20 ML VIAL IV ONE (14:06)
[2019-05-13] MEDS ORDERED: LACTATED RINGERS 1,000 ML IV ONE (14:10)
--- NOTE | 2019-05-13 14:58 | P.PCN ---
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 The patient reports 2 days of rectal bleeding. She reports at least 6- 12 bloody bowel movements daily. Currently she is had approximately 2-3 bloody bowel movements today. She denies any gross pain with her symptoms but does have lower abdominal cramping below the bellybutton. The patient also reports nausea associated with her symptoms with no episodes of vomiting. She also reports decreased oral intake with her symptoms. The patient previously had endoscopic evaluation in 12/2014 with EGD significant for gastritis with small erosions and a hiatal hernia and colonoscopy significant for mild nonspecific colitis in the transverse colon as well as internal and external hemorrhoids with biopsies of the colon significant for benign colonic mucosa and biopsies of the stomach negative. The patient reports after this she was given a probiotic has never been on any other treatment for her colitis. She denies any prior episodes similar to her current presentation. The patient has a history of hea vy alcohol abuse and is currently drinking a half pints of liquor daily. Hemoglobin is currently 7.6 status post transfusion from 8 previously. Procedure performed: Esophagogastroduodenoscopy with biopsy Colonoscopy with biopsy Estimated blood loss: Minimal. Preoperative diagnosis: Hematochezia, anemia of acute blood loss, last colonoscopy and EGD in 2014 Anesthesia: [facility] Procedure: After informed consent was obtained from the patient was brought into the endoscopy unit and IV sedation was administered by anesthesia under continuous monitoring. Initially upper endoscopy was done. The Olympus GF 190 video endoscope was inserted into the mouth and esophagus intubated without any difficulty and was gradually advanced into the stomach and duodenum and carefully examined. The bulb and second part of the duodenum appeared grossly normal except for some mild erythema suggestive of mild duodenitis which was biopsied. The scope was then withdrawn into the stomach adequately insufflated with air and upon careful examination the antrum and body, cardia and fundus appeared grossly normal except for some mild scattered erythema in the antrum and body and some thickening of the antral folds suggestive of moderate gastritis with biopsies of the antrum and body taken. The scope was then withdrawn into the esophagus. The GE junction was located at 38 cm to the incisors. It appeared regular with no erythema erosions or ulcerations. Rest of the esophagus appeared normal. Patient tolerated the procedure well. At this time the patient continued to remain sedation. Initial digital rectal examination was normal. Olympus CF 190 video colonoscope was then inserted into the rectum and gradually advanced to the cecum without any difficulty. Careful examination was performed as the scope was gradually being withdrawn. The terminal ileum was intubated and appeared normal with biopsies taken. The prep was excellent. The cecum, ascending colon, transverse colon, descending colon, sigmoid colon and rectum appeared normal, with no active bleeding or old blood noted throughout the entire procedure with random biopsies taken of the right colon, transverse colon, left colon and rectum. Retroflexion was performed in the rectum and no lesions were noted moderate sized internal hemorrhoids were noted. Patient tolerated the procedure well. Impression: 1. No active bleeding or old blood noted on EGD or colonoscopy. 2. Moderate gastritis antrum and body, biopsied. Mild duodenitis biopsied. 3. Internal and external hemorrhoids. Random biopsies taken of the terminal ileum, right colon, transverse colon, left colon and rectum with no active bleeding or old blood or gross abnormalities noted. Recommendations: Findings of this examination were discussed with the patient. Okay for full liquid diet today. Continue to monitor hemoglobin and hematocrit and transfuse as needed.
--- NOTE | 2019-05-13 16:09 | P.PN ---
Subjective Progress Note Date: 05/13/19 (delayed charting seen at 0930) Principal diagnosis: hematochezia Patient is a 38-year-old female with a past medical history of alcohol abuse, colitis, prior hemorrhoid, hepatomegaly, and chronic neuropathy who presented to the emergency department with complaints of bright red blood per rectum. In the emergency department she underwent an extensive evaluation. She was tachycardic on arrival with a heart rate of 115. Laboratory analysis showed hemoglobin of 7.7 down from 10.8-1 month ago and 12.5 5 months ago. She had a lactic acid of 5.8, sodium 135, potassium of 2.8. Her fecal occult blood was positive. She was given 1 unit of packed red blood cells and IV Protonix. She underwent a CT abdomen and pelvis which showed small bowel mesenteric edema, gayle e fluid in the right side of the pelvis possibly related to ruptured ovarian cysts, and hepatosplenomegaly. She was admitted for further monitoring and care. She was also found to have an elevated INR at 1.5 suspect to be secondary to hepatic disease. She was seen by GI and underwent EGD and Colonoscopy which showed Mild gastritis and internal and external hemorrhoids. Her HgB dropped slightly after admission and then stablaized out. She was placed on CIWA protocol due to extensive Alcohol history. Patient seen and examined at bedside. She reports that she is having no more blood in her stools. She is having frequent stools secondary to being prepped for colonoscopy. She states her abdominal cramping has pretty much resolved. Denies any nausea, vomiting, or diarrhea. Objective - Vital Signs Vital signs: Vital Signs Temp 98.0 F 05/13/19 11:56 Pulse 108 H 05/13/19 11:56 Resp 16 05/13/19 11:56 BP 110/54 05/13/19 11:56 Pulse Ox 100 05/13/19 11:56 Intake & Output 05/12/19 05/13/19 05/13/19 18:59 06:59 18:59 Intake Total 2760 2291.2 1100 Balance 2760 2291.2 1100 Weight 51.1 kg 52.1 kg Intake: IV 500 Intake, IV Titration 2089 1811.2 Amount 0.9% NaCl with KCl 20 Meq 500 800 /l 1,000 ml @ 100 mls/hr IV .BY DURATION [facility] Rx#: [id number] Levofloxacin 750Mg-D5w 150 Pmx 750 mg In Dextrose/ Water 1 150ml.bag @ 100 mls/hr IVPB ONCE STA Rx#: [id number] Magnesium Sulfate-D5w Pmx 100 1 gm In Dextrose/Water 1 100ml.bag @ 100 mls/hr IVPB ONCE ONE Rx#: [id number] Mvi, Adult No.4 with Vit 1011.2 K 10 ml Thiamine 100 mg Folic Acid 1 mg In 0.9% NaCl with KCl 20 Meq/l 1, 000 ml @ 100 mls/hr IV . BY DURATION [facility] Rx#: [id number] Potassium Chloride 20 meq 100 In Water For Injection 1 100ml.bag @ 50 mls/hr IVPB ONCE STA Rx#: [id number] Sodium Chloride 0.9% 1, 240 000 ml @ 120 mls/hr IV . Q8H20M [facility] Rx#:[id number] Sodium Chloride 0.9% 500 500 ml 500 ml @ 1000 mls/hr IV .Q30M ST[facility] Rx#: [id number] Sodium Chloride 0.9% 500 500 ml 500 ml @ 1000 mls/hr IV .Q30M [facility] Rx#: [id number] Oral 360 480 600 Blood Product 310 Rc As-1 Unit 310 [id number] Other: Voiding Method Toilet Toilet Toilet # Voids 3 3 # Bowel Movements 1 2 2 - Exam General: pale, no distress, appears at stated age Derm: warm, dry Head: atraumatic, normocephalic, symmetric Eyes: EOMI, no lid lag, anicteric sclera Mouth: no lip lesion, mucus membranes moist Cardiovascular: S1S2 reg, no murmur, positive posterior tibial pulse bilateral, Lungs: decreased breath sounds soft, +tender to palpation diffusely , no guarding, no appreciable organomegaly Ext: no gross muscle atrophy, no edema, no contractures Neuro: CN II-XI grossly intact, no focal neuro deficits Psych: Alert, oriented, appropriate affect - Labs CBC & Chem 7: 05/13/19 11:08 05/13/19 05:47 Labs: Abnormal Lab Results - Last 24 Hours (Table) 05/12/19 05/12/19 05/12/19 Range/Units 17:12 17:12 21:11 WBC 3.3 L (3.8-10.6) k/uL RBC 1.85 L (3.80-5.40) m/uL Hgb 7.6 L (11.4-16.0) gm/dL Hct 23.1 L (34.0-46.0) % MCV 124.7 H (80.0-100.0) fL MCH 41.1 H (25.0-35.0) pg RDW 26.0 H (11.5-15.5) % Plt Count 116 L (150-450) k/uL Macrocytosis Marked A PT (9.0-12.0) sec INR (<1.2) BUN (7-17) mg/dL Creatinine (0.52-1.04) mg/dL Plasma Lactic Acid Paulino 4.1 H* 3.6 H* (0.7-2.0) mmol/L Calcium (8.4-10.2) mg/dL Phosphorus (2.5-4.5) mg/dL Total Bilirubin (0.2-1.3) mg/dL AST (14-36) U/L Alkaline Phosphatase (38-126) U/L C-Reactive Protein (<10.0) mg/L Total Protein (6.3-8.2) g/dL Albumin (3.5-5.0) g/dL 05/13/19 05/13/19 05/13/19 Range/Units 00:55 05:43 05:47 WBC 2.7 L (3.8-10.6) k/uL RBC 1.65 L (3.80-5.40) m/uL Hgb 7.1 L (11.4-16.0) gm/dL Hct 21.0 L (34.0-46.0) % MCV 127.2 H (80.0-100.0) fL MCH 42.8 H (25.0-35.0) pg RDW 25.7 H (11.5-15.5) % Plt Count 103 L (150-450) k/uL Macrocytosis Marked A PT 13.9 H (9.0-12.0) sec INR 1.4 H (<1.2) BUN (7-17) mg/dL Creatinine (0.52-1.04) mg/dL Plasma Lactic Acid Paulino 3.6 H* (0.7-2.0) mmol/L Calcium (8.4-10.2) mg/dL Phosphorus (2.5-4.5) mg/dL Total Bilirubin (0.2-1.3) mg/dL AST (14-36) U/L Alkaline Phosphatase (38-126) U/L C-Reactive Protein (<10.0) mg/L Total Protein (6.3-8.2) g/dL Albumin (3.5-5.0) g/dL 05/13/19 05/13/19 Range/Units 05:47 11:08 WBC 3.1 L (3.8-10.6) k/uL RBC 1.81 L (3.80-5.40) m/uL Hgb 7.4 L (11.4-16.0) gm/dL Hct 22.8 L (34.0-46.0) % MCV 125.9 H (80.0-100.0) fL MCH 40.9 H (25.0-35.0) pg RDW 25.4 H (11.5-15.5) % Plt Count 105 L (150-450) k/uL Macrocytosis Marked A PT (9.0-12.0) sec INR (<1.2) BUN 3 L (7-17) mg/dL Creatinine 0.40 L (0.52-1.04) mg/dL Plasma Lactic Acid Paulino (0.7-2.0) mmol/L Calcium 7.5 L (8.4-10.2) mg/dL Phosphorus 2.3 L (2.5-4.5) mg/dL Total Bilirubin 4.1 H (0.2-1.3) mg/dL AST 113 H (14-36) U/L Alkaline Phosphatase 189 H (38-126) U/L C-Reactive Protein 35.7 H (<10.0) mg/L Total Protein 5.2 L (6.3-8.2) g/dL Albumin 2.4 L (3.5-5.0) g/dL Assessment and Plan Assessment: Acute blood loss anemia secondary to internal hemorrhoids - repeat CBC in AM - Ferrous sulfate on discharge - full liquid diet per GI - oral PPI Coagulopathy suspect secondary to liver disease -Given 1 dose of vitamin K without change in INR but no longer bleeding -Repeat INR in a.m. Hepatic steatosis with chronically elevated liver enzymes -Alcohol cessation -Trend liver enzymes - Hep profile negative - outpatient follow-up - ETOH cessation Alcohol abuse with impending delirium tremens -Multivitamin bag stopped transitioned to PO folic acid and thiamine -CIWA protocol -Secondary to fatty infiltration of the liver on computed tomography and known liver dysfunction will avoid Librium as able Tobacco abuse -Cessation -Nicotine replacement Chronic neuropathy of bilateral hands and feet -Continue outpatient follow-up Lactic acidosis, resolved Hypokalemia, resolved DVT prophylaxis: SCDs Discussed with: Patient. nursing Anticipated discharge date:in AM if HgB stable Anticipated discharge place: home A total of 25 minutes was spent on the care of this complex patient more than 50% of the time was spent in counseling and care coordination.
[2019-05-13] MEDS: PANTOPRAZOLE 40 MG TABLET PO SCH (16:26)
[2019-05-13] MEDS: THIAMINE 100 MG TAB PO SCH (16:27)
[2019-05-13] MEDS: MELATONIN 5 MG TABLET PO PRN (20:14)
[2019-05-14] MEDS: HYDROcodone/APAP 5-325MG 1 EACH TAB PO PRN (07:20)
[2019-05-14] MEDS: FOLIC ACID 1 MG TAB PO SCH (07:20)
[2019-05-14] MEDS: PANTOPRAZOLE 40 MG TABLET PO SCH ×2 (07:20→17:28)
[2019-05-14] MEDS: NICOTINE 14MG/24HR PATCH TRANSDERM SCH (07:20)
[2019-05-14] MEDS: THIAMINE 100 MG TAB PO SCH ×2 (07:20→17:28)
[2019-05-14 07:32] LABS: Anisocytosis Marked; HCT 22.6 % (34.0-46.0); HGB 7.4 gm/dL (11.4-16.0); Hypochromasia Moderate; MCH 41.2 pg (25.0-35.0); MCHC 32.5 g/dL (31.0-37.0); Macrocytosis Marked; Poikilocytosis Slight; RBC 1.78 m/uL (3.80-5.40); RDW 24.8 % (11.5-15.5); WBC 2.9 k/uL (3.8-10.6)
[2019-05-14 07:39] LABS: INR 1.3 (<1.2)
[2019-05-14 07:55] LABS: Platelet Count 86 k/uL (150-450)
[2019-05-14] MEDS ORDERED: SIMETHICONE 80 MG CHEWABLE PO PRN (09:34)
[2019-05-14] MEDS: HYDROcodone/APAP 7.5-325MG 1 EACH TAB PO PRN (12:15)
[2019-05-14 14:48] VITALS: BMI 21.7
--- NOTE | 2019-05-14 16:08 | XR ---
EXAMINATION TYPE: XR abdomen acute w cxr DATE OF EXAM: 05/14/2019 CLINICAL HISTORY: Bright red rectal bleeding for 3 days and pain. TECHNIQUE: Single frontal view of chest is obtained. Supine and upright views of the abdomen are acq uired. COMPARISON: CT abdomen and pelvis from 2 days ago. Chest x-ray September 22, 2016. FINDINGS: There are new small bilateral pleural effusions. No suspicious focal airspace opacity or p neumothorax. Cardiac silhouette size remains within normal limits. Osseous structures are intact. Gas is noted in nondistended stomach and small bowel loops. Gas and fecal material is seen in nondi stended colon and rectum. Hepatosplenomegaly is present seen better on recent CT. No pneumoperitoneum . Osseous structures are intact. IMPRESSION: 1. New small bilateral pleural effusions. 2. Overall nonobstructive bowel gas pattern.
[2019-05-14] MEDS ORDERED: DICYCLOMINE 20 MG TAB PO PRN (17:19)
[2019-05-14] MEDS ORDERED: LORazepam 0.5 MG TAB PO STA (18:46)
--- NOTE | 2019-05-14 18:55 | P.PN ---
Subjective Progress Note Date: 05/14/19 Principal diagnosis: hematochezia Patient is a 38-year-old female with a past medical history of alcohol abuse, colitis, prior hemorrhoid, hepatomegaly, and chronic neuropathy who presented to the emergency department with complaints of bright red blood per rectum. In the emergency department she underwent an extensive evaluation. She was tachycardic on arrival with a heart rate of 115. Laboratory analysis showed hemoglobin of 7.7 down from 10.8-1 month ago and 12.5 5 months ago. She had a lactic acid of 5.8, sodium 135, potassium of 2.8. Her fecal occult blood was positive. She was given 1 unit of packed red blood cells and IV Protonix. She underwent a CT abdomen and pelvis which showed small bowel mesenteric edema, free fluid in the right side of the pelvis possibly related to ruptured ovarian cysts, and hepatosplenomegaly. She was admitted for further monitoring and care. She was also found to have an elevated INR at 1.5 suspect to be secondary to hepatic disease. She was seen by GI and underwent EGD and Colonoscopy which showed Mild gastritis and internal and external hemorrhoids. Her HgB dropped slightly after admission and then stablaized out. She was placed on CIWA protocol due to extensive Alcohol history. On the morning after colonoscopy she was having severe abdominal pain and cramping. X-ray showed non obstructive bowel gas pattern Patient seen and examined at bedside. Having sever abdominal pain not passing stool or flatus. No blood from rectum. No shortness of breath or chest pain. Abdominal pain worse that prior to colonoscopy. Objective - Vital Signs Vital signs: Vital Signs Temp 98.2 F 05/14/19 13:36 Pulse 116 H 05/14/19 13:36 Resp 18 05/14/19 13:36 BP 106/67 05/14/19 13:36 Pulse Ox 98 05/14/19 13:36 Intake & Output 05/13/19 05/14/19 05/14/19 18:59 06:59 18:59 Intake Total 2822 Balance 2822 Weight 52.1 kg Intake: IV 500 Intake, IV Titration 1500 Amount 0.9% NaCl with KCl 20 Meq 1000 /l 1,000 ml @ 100 mls/hr IV .BY DURATION [facility] Rx#: [id number] Lactated Ringers 1,000 ml 500 @ 0 mls/hr IV .[facility] Rx#:[id number] Oral 822 Other: Voiding Method Toilet Toilet Toilet # Voids 1 1 3 # Bowel Movements 2 - Exam General: pale, no distress, appears at stated age Derm: warm, dry Head: atraumatic, normocephalic, symmetric Eyes: EOMI, no lid lag, anicteric sclera Mouth: no lip lesion, mucus membranes moist Cardiovascular: S1S2 reg, no murmur, positive posterior tibial pulse bilateral, Lungs: decreased breath sounds soft, +Severe tender to palpation diffusely , no guarding, no appreciable organomegaly Ext: no gross muscle atrophy, no edema, no contractures Neuro: CN II-XI grossly intact, no focal neuro deficits Psych: Alert, oriented, appropriate affect - Labs CBC & Chem 7: 05/14/19 06:45 05/13/19 05:47 Labs: Abnormal Lab Results - Last 24 Hours (Table) 05/14/19 05/14/19 Range/Units 06:45 06:45 WBC 2.9 L (3.8-10.6) k/uL RBC 1.78 L (3.80-5.40) m/uL Hgb 7.4 L (11.4-16.0) gm/dL Hct 22.6 L (34.0-46.0) % MCV 127.0 H (80.0-100.0) fL MCH 41.2 H (25.0-35.0) pg RDW 24.8 H (11.5-15.5) % Plt Count 86 L (150-450) k/uL Macrocytosis Marked A PT 13.0 H (9.0-12.0) sec INR 1.3 H (<1.2) Assessment and Plan Assessment: Acute blood loss anemia secondary to internal hemorrhoids vs duodenitis - repeat CBC in AM - Ferrous sulfate on discharge - oral PPI Abdominal pain - abd x-ray negative - increased norco - GI paged by nursing - continue to monitor - simethicone Coagulopathy suspect secondary to liver disease -Outpatient follow-up Hepatic steatosis with chronically elevated liver enzymes -Alcohol cessation -Trend liver enzymes - Hep profile negative - outpatient follow-up - ETOH cessation Alcohol abuse with impending delirium tremens -Multivitamin bag stopped transitioned to PO folic acid and thiamine -[facility] protocol -Secondary to fatty infiltration of the liver on computed tomography and known liver dysfunction will avoid Librium as able Tobacco abuse -Cessation -Nicotine replacement Chronic neuropathy of bilateral hands and feet -Continue outpatient follow-up Lactic acidosis, resolved Hypokalemia, resolved DVT prophylaxis: SCDs Discussed with: Patient. nursing Anticipated discharge date:in AM if abd pain improved Anticipated discharge place: home A total of 25 minutes was spent on the care of this complex patient more than 50% of the time was spent in counseling and care coordination.
[2019-05-15] MEDS: HYDROcodone/APAP 7.5-325MG 1 EACH TAB PO PRN ×2 (01:38→08:47)
--- NOTE | 2019-05-15 07:28 | P.PN ---
Subjective Progress Note Date: 05/14/19 Principal diagnosis: GI bleed Patient seen sitting bedside, eating her diet. Still having some minimal abdominal pain. No further blood per rectum. Objective - Vital Signs Vital signs: Vital Signs Temp 98.2 F 05/14/19 13:36 Pulse 116 H 05/14/19 13:36 Resp 18 05/14/19 13:36 BP 106/67 05/14/19 13:36 Pulse Ox 98 05/14/19 13:36 Intake & Output 05/13/19 05/14/19 05/14/19 18:59 06:59 18:59 Intake Total 2822 Balance 2822 Weight 52.1 kg Intake: IV 500 Intake, IV Titration 1500 Amount 0.9% NaCl with KCl 20 Meq 1000 /l 1,000 ml @ 100 mls/hr IV .BY DURATION [facility] Rx#: [id number] Lactated Ringers 1,000 ml 500 @ 0 mls/hr IV .[facility] Rx#:[id number] Oral 822 Other: Voiding Method Toilet Toilet Toilet # Voids 1 1 3 # Bowel Movements 2 - Exam On physical examination, patient appears comfortable in no apparent distress. HEAD: Normocephalic, atraumatic. EYES: Scleral icterus. No conjunctival injection. MOUTH: No lesions, tongue midline. NECK: Trachea midline, no gross abnormalities. CHEST: Clear to auscultation with no wheezing or rhonchi appreciated. HEART: Regular rate and rhythm. ABDOMEN: Soft, obese. Bowel sounds are positive. No organomegaly. No guarding or rigidity. EXTREMITIES: No pedal edema. SKIN: No rashes, jaundice. NEUROLOGIC: Alert and oriented x3. No focal deficits. - Labs CBC & Chem 7: 05/14/19 06:45 05/13/19 05:47 Labs: Abnormal Lab Results - Last 24 Hours (Table) 05/14/19 05/14/19 Range/Units 06:45 06:45 WBC 2.9 L (3.8-10.6) k/uL RBC 1.78 L (3.80-5.40) m/uL Hgb 7.4 L (11.4-16.0) gm/dL Hct 22.6 L (34.0-46.0) % MCV 127.0 H (80.0-100.0) fL MCH 41.2 H (25.0-35.0) pg RDW 24.8 H (11.5-15.5) % Plt Count 86 L (150-450) k/uL Macrocytosis Marked A PT 13.0 H (9.0-12.0) sec INR 1.3 H (<1.2) Assessment and Plan (1) GI bleed Narrative/Plan: 38-year-old female with medical history significant for alcohol abuse presenting with multiple episodes of blood per rectum. She denies any gross abdominal pain but does report lower abdominal cramping in association with her symptoms. No prior episodes similar to current presentation. She reports multiple episodes of armando bleeding per rectum. She did have evaluation with EGD significant for hiatal hernia and gastritis as well as colonoscopy significant for hemorrhoids and mild nonspecific transverse colon inflammation in 2015. She denies any tr eatment in the past for colitis and reports that she was taking a probiotic for lower GI symptoms. No source of bleeding found on upper or lower endoscopy. Symptoms have improved. Current Visit: No Status: Acute Code(s): K92.2 - GASTROINTESTINAL HEMORRHAGE, UNSPECIFIED SNOMED Code(s): 78122326 (2) Elevated liver enzymes Narrative/Plan: Elevation in liver enzymes and predominantly a cholestatic pattern with typical ratio of AST: ALT and a 2:1 pattern consistent with alcoholic liver disease. Last viral hepatitis panel performed in 2017. Current Visit: Yes Status: Acute Code(s): R74.8 - ABNORMAL LEVELS OF OTHER SERUM ENZYMES SNOMED Code(s): 128184933 (3) ETOH abuse Current Visit: No Status: Acute Code(s): F10.10 - ALCOHOL ABUSE, UNCOMPLI CATED SNOMED Code(s): 29211766 Plan: Supportive care Okay for diet as tolerated Alcohol abstinence Acute viral hepatitis panel or ordered Continue to monitor CMP, INR (vitamin K ordered) Dicyclomine as needed for abdominal cramping ordered Continue supplementation of vitamins and minerals Okay for discharge from GI standpoint, the gastroenterology service will stand by at this time Thank you for allowing us to participate in the care of this patient
[2019-05-15 07:55] LABS: Anisocytosis Marked; HCT 22.4 % (34.0-46.0); HGB 7.3 gm/dL (11.4-16.0); Hypochromasia Moderate; MCH 41.7 pg (25.0-35.0); MCHC 32.7 g/dL (31.0-37.0); MCV 127.8 fL (80.0-100.0); Macrocytosis Marked; Mean Platelet Volume 7.2; RBC 1.75 m/uL (3.80-5.40); RDW 24.1 % (11.5-15.5); WBC 3.5 k/uL (3.8-10.6)
[2019-05-15 07:59] LABS: ALT 37 U/L (9-52); AST 143 U/L (14-36); African American GFR (CKD) >90 (>60 ml/min/1.73 sqM); Albumin 2.5 g/dL (3.5-5.0); Alkaline Phosphatase 239 U/L (38-126); Anion Gap 5 mmol/L; Blood Urea Nitrogen <2 mg/dL (7-17); Calcium 8.1 mg/dL (8.4-10.2); Carbon Dioxide 30 mmol/L (22-30); Chloride 102 mmol/L (98-107); Glucose 101 mg/dL (74-99); Potassium 4.8 mmol/L (3.5-5.1); Sodium 137 mmol/L (137-145); Total Bilirubin 3.4 mg/dL (0.2-1.3); Total Protein 5.3 g/dL (6.3-8.2)
[2019-05-15 08:00] LABS: Platelet Count 92 k/uL (150-450)
[2019-05-15] MEDS: FOLIC ACID 1 MG TAB PO SCH (08:47)
[2019-05-15] MEDS: NICOTINE 14MG/24HR PATCH TRANSDERM SCH (08:47)
[2019-05-15] MEDS: THIAMINE 100 MG TAB PO SCH (08:48)
[2019-05-15] MEDS: PANTOPRAZOLE 40 MG TABLET PO SCH (08:48)
--- NOTE | 2019-05-15 10:07 | P.DS ---
Providers Date of admission: 05/12/19 06:17 Expected date of discharge: 05/15/19 Attending physician: Gideon Acosta MD Consults: 05/12/19 06:15 Consult Physician Urgent Consulting Provider: Eduardo Haywood Consult Reason/Comments: GI Bleeding Do you want consulting provider notified?: Yes Primary care physician: Stated None Hospital Course: Discharge Diagnosis: Acute blood loss anemia GI bleed likely due to external and internal hemorrhoids. Duodenitis Mild gastritis Coagulopathy due to liver disease Hepatic steatosis with chronically elevated liver enzymes Tobacco absue Alcohol abuse Chronic neuropathy lactic acidosis Hypokalemia Thrombocytopenia due to liver diseae Hospital Course: Patient is a 38-year-old female with a past medical history of alcohol abuse, colitis, prior hemorrhoid, hepatomegaly, and chronic neuropathy who presented to the emergency department with complaints of bright red blood per rectum. In the emergency department she underwent an extensive evaluation. She was tachycardic on arrival with a heart rate of 115. Laboratory analysis showed hemoglobin of 7.7 down from 10.8-1 month ago and 12.5 5 months ago. She had a lactic acid of 5.8, sodium 135, potassium of 2.8. Her fecal occult blood was positive. She was given 1 unit of packed red blood cells and IV Protonix. She underwent a CT abdomen and pelvis which showed small bowel mesenteric edema, free fluid in the right side of the pelvis possibly related to ruptured ovarian cysts, and hepatosplenomegaly. She was admitted for further monitoring and care. She was also found to have an elevated INR at 1.5 suspect to be secondary to hepatic disease. She was seen by GI and underwent EGD and Colonoscopy which showed Mild gastritis and internal and external hemorrhoids. Her HgB dropped slightly after admission and then stablaized out. She was placed on CIWA protocol due to extensive Alcohol history. On the morning after colonoscopy she was having severe abdominal pain and cramping. X-ray showed non obstructive bowel gas pattern. She was placed on bentyl and norco with some improvement in her pain. She was seen by GI again who felt she was stable for discharge. She was tolerating her diet. She will need to follow-up with Dr. Haywood of GI in the office for biopsy results to rule out IBD and other forms of colitis. She was counseled on the importance of alcohol cessation. She will need a PCP and was given information for Dr. Galaviz. She will remain off work through 05/18. On discharge, the patient has been prescribed norco for the treatment of acute pain. They have been provided a 4, day supply and MAPS was checked on date. I have counseled them on the risk of opiate medications including addiction and overdose. We also discussed that mixing opiate medications with benzodiazepines, alcohol, muscle relaxers, and other drugs that depress the central nervous system can lead to serious health risks including overdose, , and disability. I informed them that it is a felony to illegally deliver, sell, or share a controlled substance. I have instructed them that unused opiates can be disposed of at a drug take back location, which includes the [facility] and the [facility]. The Opioid start talking form has been signed. I have referred them Dr. Galaviz for follow-up care. Patient seen and examined at bedside. Still with mild abdominal pain, improving from yesterday, no nausea, feeling slightly better than yesterday. Knows the importance of follow-up for biopsy results. Vital signs reviewed and stable. General: non toxic, no distress, appears at stated age Derm: warm, dry Head: atraumatic, normocephalic, symmetric Eyes: EOMI, no lid lag, anicteric sclera Mouth: no lip lesion, mucus membranes moist Cardiovascular: S1S2 reg, no murmur, positive posterior tibial pulse bilateral, Lungs: CTA bilateral, no rhonchi, no rales , no accessory muscle use Abdominal: soft, +tender to palpation RUQ and LUQ, no guarding, no appreciable organomegaly Ext: no gross muscle atrophy, no edema, no contractures Neuro: CN II-XI grossly intact, no focal neuro deficits Psych: Alert, oriented, appropriate affect A total of 25 minutes of time were spent preparing this complex discharge summary . Patient Condition at Discharge: Stable Plan - Discharge Summary Discharge Rx Participant: No New Discharge Prescriptions: New Dicyclomine [Bentyl] 20 mg PO QID PRN #60 tab PRN Reason: Dyspepsia HYDROcodone/APAP 7.5-325MG [[place] 7.5-325] 1 each PO Q6H PRN #16 tab PRN Reason: Moderate Pain Pantoprazole [Protonix] 40 mg PO DAILY #30 tablet. Continue Acetaminophen/Diphenhydramine [Tylenol PM 500-25mg] 1 tab PO HS PRN PRN Reason: PAIN/SLEEP Changed Acetaminophen Tab [Tylenol] 650 mg PO Q6H PRN #0 PRN Reason: Pain Discontinued Famotidine [Pepcid] 20 mg PO BID Acetaminophen/Diphenhydramine [Tylenol PM 500-25mg] 2 tab PO HS Discharge Medication List Acetaminophen/Diphenhydramine [Tylenol PM 500-25mg] 1 tab PO HS PRN 05/12/19 [History] Acetaminophen Tab [Tylenol] 650 mg PO Q6H PRN #0 05/15/19 [Rx] Dicyclomine [Bentyl] 20 mg PO QID PRN #60 tab 05/15/19 [Rx] HYDROcodone/APAP 7.5-325MG [[place] 7.5-325] 1 each PO Q6H PRN #16 tab 05/15/19 [Rx] Pantoprazole [Protonix] 40 mg PO DAILY #30 tablet. 05/15/19 [Rx] Follow up Appointment(s)/Referral(s): None,Stated [Primary Care Provider] - 1-2 days Eduardo Haywood MD [STAFF PHYSICIAN] - 1 Week Chandan Galaviz [STAFF PHYSICIAN] - 1-2 Days Activity/Diet/Wound Care/Special Instructions: Activity: as tolerated Diet: regular Special Instructions: Seek medical attention if worsening abdominal pain Discharge Disposition: HOME SELF-CARE
[2019-05-15 10:26] VITALS: BP 100/63; PULSE 112; RESP 14; TEMP 98.1
--- NOTE | 2019-05-24 07:57 | CDI ---
Documentation Clarification Form Date: 05/24/19 From: Rosemary Gomez Phone: If you have a question about this query, please contact Alis Hernandez, Freight Rate Analyst at [phone] between 8am and 5pm. Admit Date: 05/12/19 Discharge Date: 05/15/19 Patient Name: Margie Wilson Visit Number: [id number] ATTENTION: The Clinical Documentation Specialists (CDI) and [facility] Coding Staff appreciate your assistance in clarifying documentation. Please respond to the clarification below the line at the bottom and electronically sign. The CDI & [facility] Coding staff will review the response and follow-up if needed. Please note: Queries are made part of the Legal Health Record. If you have any questions, please contact the author of this message via ITS. Dear Dr. Bethany Bella, The diagnosis sepsis was documented in the ED Note and H&P, but is not noted in subsequent documentation. History/Risk Factors: alcohol abuse, colitis, prior hemorrhoids, hepatomegaly, chronic neuropathy Clinical Indicators: Presented with complaints of bright red blood per rectum. Lactic acidosis-likely secondary to hypoperfusion in conjunction with liver disease - secondary to sepsis. Treatment: IV fluids, IV Levaquin Please clarify if the sepsis was Present/active/treated this admission Sepsis ruled out Other, please specify Clinically unable to determine Sepsis ruled out MTDD
== END 2019-05-15 13:19 | disposition home or self-care (01) | DRG 394 ==
LOC: EC 02:17 → 3SCARD 06:17 → 4SSUR 05-14 00:21
PROVIDERS: ADMIT Internal Medicine; ATTEND Internal Medicine
PROC: 30233N1 Transfusion of Nonautologous Red Blood Cells into Peripheral Vein, Percutaneous Approach (ICD-10-PCS; principal; 2019-05-12)
PROC: 0DB78ZX Excision of Stomach, Pylorus, Via Natural or Artificial Opening Endoscopic, Diagnostic (ICD-10-PCS; 2019-05-13)
PROC: 0DBB8ZX Excision of Ileum, Via Natural or Artificial Opening Endoscopic, Diagnostic (ICD-10-PCS; 2019-05-13)
PROC: 0DBL8ZX Excision of Transverse Colon, Via Natural or Artificial Opening Endoscopic, Diagnostic (ICD-10-PCS; 2019-05-13)
PROC: 0DBP8ZX Excision of Rectum, Via Natural or Artificial Opening Endoscopic, Diagnostic (ICD-10-PCS; 2019-05-13)
PROC: 0DBF8ZX Excision of Right Large Intestine, Via Natural or Artificial Opening Endoscopic, Diagnostic (ICD-10-PCS; 2019-05-13)
PROC: 0DBG8ZX Excision of Left Large Intestine, Via Natural or Artificial Opening Endoscopic, Diagnostic (ICD-10-PCS; 2019-05-13)
PROC: 0DB98ZX Excision of Duodenum, Via Natural or Artificial Opening Endoscopic, Diagnostic (ICD-10-PCS; 2019-05-13 08:30)
DX: K64.8 Other hemorrhoids (principal); D62 Acute posthemorrhagic anemia; E87.2 Acidosis; D68.4 Acquired coagulation factor deficiency; F10.239 Alcohol dependence with withdrawal, unspecified; D69.59 Other secondary thrombocytopenia; G62.9 Polyneuropathy, unspecified; K70.9 Alcoholic liver disease, unspecified; K76.0 Fatty (change of) liver, not elsewhere classified; K64.4 Residual hemorrhoidal skin tags; N83.201 Unspecified ovarian cyst, right side; K52.9 Noninfective gastroenteritis and colitis, unspecified; K29.70 Gastritis, unspecified, without bleeding; K29.80 Duodenitis without bleeding; K44.9 Diaphragmatic hernia without obstruction or gangrene; E87.6 Hypokalemia; K21.9 Gastro-esophageal reflux disease without esophagitis; Y90.0 Blood alcohol level of less than 20 mg/100 ml; F17.210 Nicotine dependence, cigarettes, uncomplicated; Z71.6 Tobacco abuse counseling; Z71.41 Alcohol abuse counseling and surveillance of alcoholic; Z79.899 Other long term (current) drug therapy; Z87.442 Personal history of urinary calculi; Z90.49 Acquired absence of other specified parts of digestive tract; Z86.59 Personal history of other mental and behavioral disorders; Z87.448 Personal history of other diseases of urinary system; Z98.890 Other specified postprocedural states; Z88.1 Allergy status to other antibiotic agents; Z88.5 Allergy status to narcotic agent; Z83.3 Family history of diabetes mellitus; Z82.49 Family history of ischemic heart disease and other diseases of the circulatory system; Z80.0 Family history of malignant neoplasm of digestive organs
CPT/HCPCS: 36415; 36430; 43239; 45380; 74022; 74176; 80053; 80074; 80320; 82272; 83605; 83735; 84100; 84484; 84703; 85025; 85027; 85610; 85652; 85730; 86140; 86850; 86900; 86901; 86920; 88305; 96361; 96365; 96367; 96372; 96374; 96375; 96376; 99284

== ENCOUNTER 2019-05-22 14:13 | Emergency (ER) | payer OTHER ==
[2019-05-22 14:23] VITALS: RESP 18
--- NOTE | 2019-05-22 14:43 | ED ---
General Adult HPI - General Chief complaint: Recheck/Abnormal Lab/Rx Stated complaint: Feet swelling Time Seen by Provider: 05/22/19 14:31 Source: patient Mode of arrival: ambulatory Limitations: no limitations - History of Present Illness Initial comments: Patient is a 38-year-old female with history of alcohol abuse, hepatosplenomegaly, cirrhosis is presenting to emergency Department with chief complaint of bilateral lower extremity swelling. Patient reports she was discharged from this hospital 10 days ago for a GI bleed. Patient reports 2 day after her discharge she began developing bilateral lower extremity edema. Patient reports she also attempted to make an appointment with Dr. Haywood for further management and had an appointment scheduled for today however her insurance was not improved. Patient reports she did not know what to do so decided to come to the ED. Patient is also complaining of left upper quadrant and right upper quadrant abdominal pain although she states that is her baseline. Patient denies hematuria, hematochezia or melena. Patient denies any urinary, vaginal or bowel symptoms. - Related Data Home Medications Medication Instructions Recorded Confirmed RX: Acetaminophen/Diphenhydramine 1 tab PO HS PRN 05/12/19 05/12/19 [Tylenol PM 500-25mg] Previous Rx's Medication Instructions Recorded Pantoprazole [Protonix] 40 mg PO DAILY #30 tablet. 05/15/19 RX: Acetaminophen Tab [Tylenol] 650 mg PO Q6H PRN #0 05/15/19 RX: Dicyclomine [Bentyl] 20 mg PO QID PRN #60 tab 05/15/19 RX: Ferrous Sulfate [Feosol] 325 mg PO BID #60 tab 05/15/19 RX: HYDROcodone/APAP 7.5-325MG 1 each PO Q6H PRN #16 tab 05/15/19 [[place] 7.5-325] Furosemide [Lasix] 10 mg PO DAILY #15 dose 05/22/19 Allergies Allergy/AdvReac Type Severity Reaction Status Date / Time cephalexin monohydrate Allergy Rash/Hives Verified 05/22/19 14:19 [From Keflex] codeine Allergy Rash/Hives Verified 05/22/19 14:19 Review of Systems ROS Statement: Those systems with pertinent positive or pertinent negative responses have been documented in the HPI. ROS Other: All systems not noted in ROS Statement are negative. Past Medical History Past Medical History: GERD/Reflux Additional Past Medical History / Comment(s): CURRENT: MULTIPLE EC VISIT AND TESTING FOR ABD PAIN, FOUND TO HAVE KIDNEY STONE (RIGHT), ovarian cyst History of Any Multi-Drug Resistant Organisms: None Reported Past Surgical History: Appendectomy, Orthopedic Surgery Additional Past Surgical History / Comment(s): Left knee surgery Past Anesthesia/Blood Transfusion Reactions: No Reported Reaction Additional Past Anesthesia/Blood Transfusion Reaction / Comment(s): Pt is currently receiving blood without reaction so far. Past Psychological History: Depression Smoking Status: Current every day smoker Past Alcohol Use History: Daily Past Drug Use History: Marijuana - Past Family History Mother Family Medical History: Diabetes Mellitus Additional Family Medical History / Comment(s): Borderline HTN Brother(s) Family Medical History: Diabetes Mellitus Father Family Medical History: Hypertension Additional Family Medical History / Comment(s): BOARDERLINE DM General Exam Limitations: no limitations General appearance: alert, in no apparent distress Head exam: Present: atraumatic, normocephalic, normal inspection Eye exam: Present: normal appearance, PERRL, EOMI Pupils: Present: normal accommodation ENT exam: Present: normal exam, normal oropharynx, mucous membranes dry, TM's normal bilaterally, normal external ear exam Neck exam: Present: normal inspection, full ROM Respiratory exam: Present: rales (some crackels). Absent: chest wall tenderness Cardiovascular Exam: Present: regular rate, normal rhythm, normal heart sounds GI/Abdominal exam: Present: soft, tenderness (Left upper quadrant right upper quadrant tenderness. Negative Luque sign, negative McBurney point tenderness), normal bowel sounds. Absent: distended, guarding, rebound, rigid, bruit, pulsatile mass, hernia Extremities exam: Present: normal inspection, full ROM, normal capillary refill, pedal edema (+4 bilateral lower extremity edema) Back exam: Present: normal inspection, full ROM Neurological exam: Present: alert, oriented X3 Psychiatric exam: Present: normal affect, normal mood Skin exam: Present: warm, dry, intact, normal color Course Vital Signs 05/22/19 05/22/19 14:20 17:09 Temperature 97.8 F 97.9 F Pulse Rate 108 H 93 Respiratory 18 18 Rate Blood Pressure 111/63 98/58 O2 Sat by Pulse 97 94 L Oximetry Medical Decision Making - Medical Decision Making Patient is a 38-year-old female with history of alcohol abuse, hepatosplenomegaly, cirrhosis is presenting to emergency Department with chief complaint of bilateral lower extremity swelling. Physical examination is indicative of +4 pitting edema bilateral lower 7 days. Some crackles heard on auscultation. Patient is also having some left upper quadrant right upper quadrant abdominal pain although that is her baseline according to the patient. CBC does indicate improvement and hemoglobin since the patient was discharged. UA is unremarkable. I suspect the bilateral lower extremity to be secondary to her hepatosplenomegaly from constant alcohol abuse. Patient was given 20 mg of Lasix Isabel discharged with 10 mg of Lasix daily. X-ray showing bilateral pleural effusion but no signs of heart failure noted. Patient is denying any chest pain or shortness of breath. Patient advised to follow-up with a primary care. I gave her a recommendation for primary care physician. Strict return parameters were thoroughly discussed with patient was understanding and agreeable. Case discussed with physician. - Lab Data Result diagrams: 05/22/19 14:54 05/22/19 14:54 Lab Results 05/22/19 05/22/19 05/22/19 Range/Units 14:54 14:54 14:59 WBC 5.4 (3.8-10.6) k/uL RBC 2.27 L (3.80-5.40) m/uL Hgb 9.3 L D (11.4-16.0) gm/dL Hct 29.0 L (34.0-46.0) % MCV 127.8 H (80.0-100.0) fL MCH 40.8 H (25.0-35.0) pg MCHC 31.9 (31.0-37.0) g/dL RDW 20.7 H (11.5-15.5) % Plt Count 143 L D (150-450) k/uL Neutrophils % 75 % Lymphocytes % 18 % Monocytes % 4 % Eosinophils % 2 % Basophils % 1 % Neutrophils # 4.0 (1.3-7.7) k/uL Lymphocytes # 1.0 (1.0-4.8) k/uL Monocytes # 0.2 (0-1.0) k/uL Eosinophils # 0.1 (0-0.7) k/uL Basophils # 0.0 (0-0.2) k/uL Hypochromasia Marked Anisocytosis Moderate Macrocytosis Marked A Sodium 138 (137-145) mmol/L Potassium 3.4 L (3.5-5.1) mmol/L Chloride 106 (98-107) mmol/L Carbon Dioxide 24 (22-30) mmol/L Anion Gap 8 mmol/L BUN 3 L (7-17) mg/dL Creatinine 0.38 L (0.52-1.04) mg/dL Est GFR (CKD-EPI)AfAm >90 (>60 ml/min/1.73 sqM) Est GFR (CKD-EPI)NonAf >90 (>60 ml/min/1.73 sqM) Glucose 84 (74-99) mg/dL Calcium 8.1 L (8.4-10.2) mg/dL Total Bilirubin 2.9 H (0.2-1.3) mg/dL AST 96 H (14-36) U/L ALT 22 (9-52) U/L Alkaline Phosphatase 284 H (38-126) U/L Total Protein 5.9 L (6.3-8.2) g/dL Albumin 2.7 L (3.5-5.0) g/dL Amylase <30 L (30-110) U/L Lipase 19 L (23-300) U/L Urine Color Dark Brown Urine Appearance Cloudy H (Clear) Urine pH 6.0 (5.0-8.0) Ur Specific [place] 1.028 (1.001-1.035) Urine Protein 1+ H (Negative) Urine Glucose (UA) Negative (Negative) Urine Ketones Negative (Negative) Urine Blood Negative (Negative) Urine Nitrite Negative (Negative) Urine Bilirubin 2+ H (Negative) Urine Urobilinogen 6.0 (<2.0) mg/dL Ur Leukocyte Esterase Negative (Negative) Urine RBC 2 (0-5) /hpf Urine WBC 3 (0-5) /hpf Ur Squamous Epith Cells 17 H (0-4) /hpf Urine Bacteria Rare H (None) /hpf Urine Mucus Many H (None) /hpf Serum Alcohol 39 mg/dL Disposition Clinical Impression: Bilateral lower extremity edema Disposition: HOME SELF-CARE Condition: Stable Instructions (If sedation given, give patient instructions): Neutropenia (ED) Additional Instructions: Please follow with primary care. Please return to emergency department if symptoms worsen. Prescriptions: Furosemide [Lasix] 10 mg PO DAILY #15 dose Is patient prescribed a controlled substance at d/c from ED?: No Referrals: None,Stated [Primary Care Provider] - 1-2 days Chance Lala MD [REFERRING] - 1-2 days Time of Disposition: 17:11
[2019-05-22 15:11] LABS: Anisocytosis Moderate; Basophils % (A) 1 %; Eosinophils # (A) 0.1 k/uL (0-0.7); Eosinophils % (A) 2 %; Hypochromasia Marked; Lymphocytes % (A) 18 %; MCH 40.8 pg (25.0-35.0); MCHC 31.9 g/dL (31.0-37.0); MCV 127.8 fL (80.0-100.0); Macrocytosis Marked; Mean Platelet Volume 7.8; Monocytes # (A) 0.2 k/uL (0-1.0); Monocytes % (A) 4 %; Neutrophils % (A) 75 %; RBC 2.27 m/uL (3.80-5.40); RDW 20.7 % (11.5-15.5); WBC 5.4 k/uL (3.8-10.6)
[2019-05-22 15:14] LABS: Appearance,Urine Cloudy (Clear); Bacteria,Urine Rare /hpf; Bilirubin,Urine 2+ (Negative); Blood,Urine Negative (Negative); Color,Urine Dark Brown; Glucose,Urine (UA) Negative (Negative); Ketones,Urine Negative (Negative); Leukocyte Esterase,Urine Negative (Negative); Mucus,Urine Many /hpf; Nitrite,Urine Negative (Negative); Protein,Urine 1+ (Negative); RBC,Urine 2 /hpf (0-5); Specific Gravity,Urine 1.028 (1.001-1.035); Squamous Epithelial Cell,Urine 17 /hpf (0-4)
[2019-05-22 15:16] LABS: HGB 9.3 gm/dL (11.4-16.0); Platelet Count 143 k/uL (150-450)
[2019-05-22 15:19] LABS: ALT 22 U/L (9-52); AST 96 U/L (14-36); African American GFR (CKD) >90 (>60 ml/min/1.73 sqM); Albumin 2.7 g/dL (3.5-5.0); Alcohol 39 mg/dL; Alkaline Phosphatase 284 U/L (38-126); Amylase <30 U/L (30-110); Anion Gap 8 mmol/L; Blood Urea Nitrogen 3 mg/dL (7-17); Calcium 8.1 mg/dL (8.4-10.2); Carbon Dioxide 24 mmol/L (22-30); Chloride 106 mmol/L (98-107); Glucose 84 mg/dL (74-99); Potassium 3.4 mmol/L (3.5-5.1); Sodium 138 mmol/L (137-145); Total Bilirubin 2.9 mg/dL (0.2-1.3); Total Protein 5.9 g/dL (6.3-8.2)
--- NOTE | 2019-05-22 16:46 | XR ---
EXAMINATION TYPE: XR chest 2V DATE OF EXAM: 05/22/2019 COMPARISON: 05/14/2019 HISTORY: Cough TECHNIQUE: Frontal and lateral views of the chest are obtained. FINDINGS: There is some blunting of both costophrenic angles. Heart size is normal. There is no jhonathan s heart failure. There are no hilar masses. IMPRESSION: There are moderate pleural effusions that are increased compared to recent exam. No jhonathan s heart failure seen.
[2019-05-22] MEDS ORDERED: FUROSEMIDE 10 MG/ML 2 ML VIAL IV ONE (17:09)
[2019-05-22 17:10] VITALS: BP 98/58; PULSE 93; TEMP 97.9
[2019-05-22] MEDS ORDERED: FUROSEMIDE 10 MG/ML 4 ML VIAL IV STA (17:12)
== END 2019-05-22 17:21 | disposition home or self-care (01) ==
LOC: EC 14:13
DX: R60.0 Localized edema (principal); J90 Pleural effusion, not elsewhere classified; R09.89 Other specified symptoms and signs involving the circulatory and respiratory systems; R10.12 Left upper quadrant pain; R10.11 Right upper quadrant pain; F17.200 Nicotine dependence, unspecified, uncomplicated; Z88.1 Allergy status to other antibiotic agents; Z88.5 Allergy status to narcotic agent; Z87.19 Personal history of other diseases of the digestive system; Z90.49 Acquired absence of other specified parts of digestive tract; Z53.9 Procedure and treatment not carried out, unspecified reason
CPT/HCPCS: 36415; 80053; 82150; 83690; 85025; 81001; 71046; 99283; 96374; G0480; J1940; 80320

== ENCOUNTER 2019-07-15 22:49 | Inpatient (IN) | payer OTHER ==
[2019-07-15] MEDS ORDERED: ONDANSETRON 4 MG/2 ML VIAL IVP STA (23:20)
[2019-07-15] MEDS ORDERED: SODIUM CHLORIDE 0.9% 1,000 ML IV STA (23:20)
[2019-07-15] MEDS ORDERED: MORPHINE SULFATE 4 MG/ML SYRINGE IVP STA (23:22)
[2019-07-16 00:52] LABS: INR 1.6 (<1.2); Partial Thromboplastin Time 31.4 sec (22.0-30.0); Prothrombin Time 16.1 sec (9.0-12.0)
--- NOTE | 2019-07-16 00:56 | ED ---
Abdominal Pain HPI - General Chief Complaint: Abdominal Pain Stated Complaint: GI Bleed Time Seen by Provider: 07/15/19 23:00 Source: patient Mode of arrival: wheelchair Limitations: no limitations - History of Present Illness Initial Comments: 39-year-old female patient with past medical history significant for alcohol abuse, alcoholic liver disease, and GI bleed presents to the emergency department today for evaluation of lower abdominal pain and rectal bleeding. Patient states the last 2 days she has been having frequent bloody bowel movements. Patient states that she did have several episodes of vomiting yesterday. Denies any diarrhea. Patient states whenever she sits on the toilet even to urinate she has blood coming from the rectum. States the bleeding is occurring at least hourly. States that she does have a external hemorrhoid but has not been bothering her. States she is having pain to the right lower quadrant abdomen. States it feels like an intense cramping pain. States that today she is feeling dizzy and weak. Patient denies any recent rash, fever, chills, shortness breath, chest pain, back pain, numbness, tingling, hematuria, dysuria, urinary urgency, urinary frequency, headache, visual changes, or any other complaints. - Related Data Home Medications Medication Instructions Recorded Confirmed Acetaminophen/Diphenhydramine 1 tab PO HS PRN 05/12/19 05/12/19 [Tylenol PM 500-25mg] Previous Rx's Medication Instructions Recorded Acetaminophen Tab [Tylenol] 650 mg PO Q6H PRN #0 05/15/19 Dicyclomine [Bentyl] 20 mg PO QID PRN #60 tab 05/15/19 Ferrous Sulfate [Feosol] 325 mg PO BID #60 tab 05/15/19 HYDROcodone/APAP 7.5-325MG [[place] 1 each PO Q6H PRN #16 tab 05/15/19 7.5-325] Pantoprazole [Protonix] 40 mg PO DAILY #30 tablet. 05/15/19 Furosemide [Lasix] 10 mg PO DAILY #15 dose 05/22/19 Allergies Allergy/AdvReac Type Severity Reaction Status Date / Time cephalexin monohydrate Allergy Rash/Hives Verified 07/15/19 22:56 [From Keflex] codeine Allergy Rash/Hives Verified 07/15/19 22:56 Review of Systems ROS Statement: Those systems with pertinent positive or pertinent negative responses have been documented in the HPI. ROS Other: All systems not noted in ROS Statement are negative. Past Medical History Past Medical History: GERD/Reflux Additional Past Medical History / Comment(s): CURRENT: MULTIPLE EC VISIT AND TESTING FOR ABD PAIN, FOUND TO HAVE KIDNEY STONE (RIGHT), ovarian cyst History of Any Multi-Drug Resistant Organisms: None Reported Past Surgical History: Appendectomy, Orthopedic Surgery Additional Past Surgical History / Comment(s): Left knee surgery Past Anesthesia/Blood Transfusion Reactions: No Reported Reaction Additional Past Anesthesia/Blood Transfusion Reaction / Comment(s): Pt is currently receiving blood without reaction so far. Past Psychological History: Depression Smoking Status: Current every day smoker Past Alcohol Use History: Daily Past Drug Use History: Marijuana - Past Family History Mother Family Medical History: Diabetes Mellitus Additional Family Medical History / Comment(s): Borderline HTN Brother(s) Family Medical History: Diabetes Mellitus Father Family Medical History: Hypertension Additional Family Medical History / Comment(s): BOARDERLINE DM General Exam Limitations: no limitations General appearance: alert, in no apparent distress, other (This is a well- developed, well-nourished adult female patient in no acute distress. Vital signs upon presentation are temperature 98.2F, pulse 126, respirations 24, blood pressure 102/67, pulse ox 96% on room air.) Respiratory exam: Present: normal lung sounds bilaterally. Absent: respiratory distress, wheezes, rales, rhonchi, stridor Cardiovascular Exam: Present: regular rate, normal rhythm, normal heart sounds. Absent: systolic murmur, diastolic murmur, rubs, gallop, clicks GI/Abdominal exam: Present: soft, tenderness (Suprapubic and right lower quadrant abdominal tenderness), normal bowel sounds. Absent: distended, guarding, rebound, rigid Neurological exam: Present: alert, oriented X3, CN II-XII intact Psychiatric exam: Present: normal affect, normal mood Skin exam: Present: warm, dry, intact, normal color. Absent: rash Course Vital Signs 07/15/19 07/16/19 07/16/19 22:54 00:05 00:48 Temperature 98.2 F Pulse Rate 126 H 103 H 112 H Respiratory 24 18 Rate Blood Pressure 102/67 108/68 O2 Sat by Pulse 96 96 Oximetry Procedures - [place] Protocol (Time Out) Nurse: Yue Gilmore Medical Decision Making - Medical Decision Making 39-year-old female patient presents to the emergency department today for evaluation of rectal bleeding, dizziness, weakness. Physical examination does reveal tenderness to the right lower quadrant. Rectal exam did reveal an external hemorrhoid with no evidence for bleeding or inflammation. Internal exam did reveal scant amount of bright red blood. Labs reviewed and did reveal hemoglobin of 10.7. Potassium is 2.6. Magnesium 1.5. Liver enzymes are elevated. Lab findings are consistent with known history of alcoholic liver disease. Patient admits to drinking alcohol on a regular basis. We will start CIWA protocol. Will replace potassium. She'll be admitted for further evaluation and monitoring of her electrolytes. She was admitted in May with similar complaints. She had upper GI and colonoscopy performed which showed inflammation, biopsies were obtained. Patient has not been able to follow up with GI specialty due to insurance issues. - Lab Data Result diagrams: 07/15/19 23:33 07/15/19 23:33 Lab Results 07/15/19 07/15/19 07/15/19 Range/Units 23:33 23:33 23:33 WBC 4.9 (3.8-10.6) k/uL RBC 2.70 L (3.80-5.40) m/uL Hgb 10.7 L (11.4-16.0) gm/dL Hct 31.9 L (34.0-46.0) % MCV 118.1 H D (80.0-100.0) fL MCH 39.7 H (25.0-35.0) pg MCHC 33.6 (31.0-37.0) g/dL RDW 16.2 H (11.5-15.5) % Plt Count 90 L (150-450) k/uL Neutrophils % 74 % Lymphocytes % 21 % Monocytes % 2 % Eosinophils % 3 % Basophils % 0 % Neutrophils # 3.6 (1.3-7.7) k/uL Lymphocytes # 1.0 (1.0-4.8) k/uL Monocytes # 0.1 (0-1.0) k/uL Eosinophils # 0.1 (0-0.7) k/uL Basophils # 0.0 (0-0.2) k/uL Manual Slide Review Performed Large Platelets Present Anisocytosis Slight Macrocytosis Marked A PT (9.0-12.0) sec INR (<1.2) APTT (22.0-30.0) sec Sodium 135 L (137-145) mmol/L Potassium 2.6 L* (3.5-5.1) mmol/L Chloride 94 L (98-107) mmol/L Carbon Dioxide 26 (22-30) mmol/L Anion Gap 15 mmol/L BUN 4 L (7-17) mg/dL Creatinine 0.47 L (0.52-1.04) mg/dL Est GFR (CKD-EPI)AfAm >90 (>60 ml/min/1.73 sqM) Est GFR (CKD-EPI)NonAf >90 (>60 ml/min/1.73 sqM) Glucose 80 (74-99) mg/dL Calcium 8.3 L (8.4-10.2) mg/dL Phosphorus (2.5-4.5) mg/dL Magnesium (1.6-2.3) mg/dL Total Bilirubin 2.4 H (0.2-1.3) mg/dL AST 453 H (14-36) U/L ALT 35 H (4-34) U/L Alkaline Phosphatase 316 H (38-126) U/L Troponin I (0.000-0.034) ng/mL Total Protein 7.0 (6.3-8.2) g/dL Albumin 3.5 (3.5-5.0) g/dL Stool Occult Blood Positive H (Negative) 07/15/19 07/15/19 07/15/19 Range/Units 23:33 23:33 23:33 WBC (3.8-10.6) k/uL RBC (3.80-5.40) m/uL Hgb (11.4-16.0) gm/dL Hct (34.0-46.0) % MCV (80.0-100.0) fL MCH (25.0-35.0) pg MCHC (31.0-37.0) g/dL RDW (11.5-15.5) % Plt Count (150-450) k/uL Neutrophils % % Lymphocytes % % Monocytes % % Eosinophils % % Basophils % % Neutrophils # (1.3-7.7) k/uL Lymphocytes # (1.0-4.8) k/uL Monocytes # (0-1.0) k/uL Eosinophils # (0-0.7) k/uL Basophils # (0-0.2) k/uL Manual Slide Review Large Platelets Anisocytosis Macrocytosis PT 16.1 H (9.0-12.0) sec INR 1.6 H (<1.2) APTT 31.4 H (22.0-30.0) sec Sodium (137-145) mmol/L Potassium (3.5-5.1) mmol/L Chloride (98-107) mmol/L Carbon Dioxide (22-30) mmol/L Anion Gap mmol/L BUN (7-17) mg/dL Creatinine (0.52-1.04) mg/dL Est GFR (CKD-EPI)AfAm (>60 ml/min/1.73 sqM) Est GFR (CKD-EPI)NonAf (>60 ml/min/1.73 sqM) Glucose (74-99) mg/dL Calcium (8.4-10.2) mg/dL Phosphorus 2.1 L (2.5-4.5) mg/dL Magnesium 1.5 L (1.6-2.3) mg/dL Total Bilirubin (0.2-1.3) mg/dL AST (14-36) U/L ALT (4-34) U/L Alkaline Phosphatase (38-126) U/L Troponin I <0.012 (0.000-0.034) ng/mL Total Protein (6.3-8.2) g/dL Albumin (3.5-5.0) g/dL Stool Occult Blood (Negative) Disposition Clinical Impression: GI bleed, Hypokalemia, Hypomagnesemia Disposition: ADMITTED IP TO THIS [facility] Condition: Serious Referrals: None,Stated [Primary Care Provider] - 1-2 days Decision to Admit Reason: Admit from EC Decision Date: 07/16/19 Decision Time: 02:01
[2019-07-16 01:17] LABS: Anisocytosis Slight; Basophils % (A) 0 %; Eosinophils # (A) 0.1 k/uL (0-0.7); Eosinophils % (A) 3 %; HCT 31.9 % (34.0-46.0); HGB 10.7 gm/dL (11.4-16.0); Lymphocytes % (A) 21 %; MCH 39.7 pg (25.0-35.0); MCHC 33.6 g/dL (31.0-37.0); Macrocytosis Marked; Mean Platelet Volume 10.6; Monocytes # (A) 0.1 k/uL (0-1.0); Monocytes % (A) 2 %; Neutrophils # (A) 3.6 k/uL (1.3-7.7); Neutrophils % (A) 74 %; RDW 16.2 % (11.5-15.5); WBC 4.9 k/uL (3.8-10.6)
[2019-07-16 01:19] LABS: ALT 35 U/L (4-34); AST 453 U/L (14-36); African American GFR (CKD) >90 (>60 ml/min/1.73 sqM); Albumin 3.5 g/dL (3.5-5.0); Alkaline Phosphatase 316 U/L (38-126); Anion Gap 15 mmol/L; Blood Urea Nitrogen 4 mg/dL (7-17); Calcium 8.3 mg/dL (8.4-10.2); Carbon Dioxide 26 mmol/L (22-30); Chloride 94 mmol/L (98-107); Glucose 80 mg/dL (74-99); Non-African American GFR(CKD) >90 (>60 ml/min/1.73 sqM); Sodium 135 mmol/L (137-145); Total Bilirubin 2.4 mg/dL (0.2-1.3)
[2019-07-16 01:20] LABS: MCV 118.1 fL (80.0-100.0)
[2019-07-16 01:26] LABS: Potassium 2.6 mmol/L (3.5-5.1)
[2019-07-16 01:50] LABS: Large Platelets Present; Platelet Count 90 k/uL (150-450)
[2019-07-16] MEDS ORDERED: LORazepam 2 MG/ML INJ IV PRN (01:50)
[2019-07-16] MEDS ORDERED: THIAMINE 100 MG/ML 2 ML VIAL IM STA (01:50)
[2019-07-16] MEDS ORDERED: Potassium Replacement Protocol 1 EACH MISC MISCELLANE PRN (01:50)
[2019-07-16] MEDS ORDERED: NALOXONE 0.4 MG/ML 1 ML VIAL IV PRN (01:54)
[2019-07-16] MEDS ORDERED: ONDANSETRON 4 MG/2 ML VIAL IVP PRN (01:54)
[2019-07-16] MEDS: POTASSIUM CHLORIDE 10 MEQ in WATER FOR INJECTION 1 100ML.BAG IVPB SCH ×6 (02:05→08:41)
[2019-07-16 02:07] LABS: Magnesium 1.5 mg/dL (1.6-2.3); Phosphorus 2.1 mg/dL (2.5-4.5)
[2019-07-16] MEDS ORDERED: Magnesium Replacement Protocol 1 EACH MISC MISCELLANE PRN (02:07)
[2019-07-16] MEDS ORDERED: SODIUM CHLORIDE 0.9% 1,000 ML with MVI, ADULT NO.4 WITH VIT K 10 ML, THIAMINE 100 MG, F... IV ONE ×4 (02:15)
[2019-07-16] MEDS: MAGNESIUM SULFATE-D5W PMX 1 GM in DEXTROSE/WATER 1 100ML.BAG IVPB SCH ×2 (02:30→03:32)
--- NOTE | 2019-07-16 03:23 | P.HPIM ---
History of Present Illness H&P Date: 07/16/19 Chief Complaint: Weakness lightheadedness and bright red blood The patient is a 39-year-old female with a past medical history of chronic alcoholism, alcoholic liver disease, alcoholic coagulopathy that presented to the ER with chief complaint of bright red blood per rectum. The patient reports that she has been having bright red blood per rectum for the last 3-4 days, she reports that it saturates the toilet paper, occasionally associated with stool. She also reports increased weakness, and lightheadedness and reports that she did not go to work because she did not think she could make it throughout the day due to her profound weakness. She also has been having episodes of nonbloody bilious emesis for the last 2-1/2 days, with associated lower abdominal pain. She denies any diarrhea or constipation. She denies any chest pain or palpitations. She reports that she she now drinks half a pint every other day and that her last alcoholic ingestion was on [birth year] prior to her birthday. Review of records indicate the patient was here in May of last year with similar presentation. At that time CT of her abdomen and pelvis showed some small bowel mesenteric edema, and hepatosplenomegaly, free fluid in the right side of the pelvis possibly related to ruptured ovarian cyst. She was admitted for acute blood loss anemia likely secondary to external and internal hemorrhoids. In the ER today with normal labs included hemoglobin of 10.7 platelets 90, PT INR 16.1 and 1.6, serum sodium 135, potassium 2.6, magnesium 1.5, total bilirubin 2.4, AST 453, ALT 35. The patient was given morphine and started on potassium replacement along with banana bag and thiamine, Zofran and Ativan as needed. She was recommended for admission Review of Systems Pertinent positives per HPI all other review of systems are otherwise negative Past Medical History Past Medical History: GERD/Reflux Additional Past Medical History / Comment(s): CURRENT: MULTIPLE EC VISIT AND TESTING FOR ABD PAIN, FOUND TO HAVE KIDNEY STONE (RIGHT), ovarian cyst History of Any Multi-Drug Resistant Organisms: None Reported Past Surgical History: Appendectomy, Orthopedic Surgery Additional Past Surgical History / Comment(s): Left knee surgery Past Anesthesia/Blood Transfusion Reactions: No Reported Reaction Additional Past Anesthesia/Blood Transfusion Reaction / Comment(s): Pt is currently receiving blood without reaction so far. Past Psychological History: Depression Smoking Status: Current every day smoker Past Alcohol Use History: Daily Past Drug Use History: Marijuana - Past Family History Mother Family Medical History: Diabetes Mellitus Additional Family Medical History / Comment(s): Borderline HTN Brother(s) Family Medical History: Diabetes Mellitus Father Family Medical History: Hypertension Additional Family Medical History / Comment(s): BOARDERLINE DM Medications and Allergies Home Medications Medication Instructions Recorded Confirmed Type Acetaminophen/Diphenhydramine 1 tab PO HS PRN 05/12/19 05/12/19 History [Tylenol PM 500-25mg] Acetaminophen Tab [Tylenol] 650 mg PO Q6H PRN #0 05/15/19 05/12/19 Rx Dicyclomine [Bentyl] 20 mg PO QID PRN #60 tab 05/15/19 Rx Ferrous Sulfate [Feosol] 325 mg PO BID #60 tab 05/15/19 Rx HYDROcodone/APAP 7.5-325MG [[place] 1 each PO Q6H PRN #16 tab 05/15/19 Rx 7.5-325] Pantoprazole [Protonix] 40 mg PO DAILY #30 tablet. 05/15/19 Rx Furosemide [Lasix] 10 mg PO DAILY #15 dose 05/22/19 Rx Allergies Allergy/AdvReac Type Severity Reaction Status Date / Time cephalexin monohydrate Allergy Rash/Hives Verified 07/15/19 22:56 [From Keflex] codeine Allergy Rash/Hives Verified 07/15/19 22:56 Physical Exam Vitals: Vital Signs Temp Pulse Resp BP Pulse Ox 07/16/19 00:48 112 H 18 108/68 96 07/16/19 00:05 103 H 07/15/19 22:54 98.2 F 126 H 24 102/67 96 Intake and Output 07/15/19 07/15/19 07/16/19 14:59 22:59 06:59 Other: Weight 47.627 kg General: ill appearing, pale, no distress, appears at stated age, normal weight Derm: no unusual rashes/lesions no unusual ecchymoses, warm, dry Head: atraumatic, normocephalic, symmetric Eyes: EOMI, no lid lag, anicteric sclera, pupils equal round reactive to light ENT: Nose and ears atraumatic, no thrush, no pharyngeal erythema Neck: No thyromegaly, no cervical lymphadenopathy, trachea midline, supple Mouth: no lip lesion, mucus membranes moist Cardiovascular: S1S2 tachy, no murmur, positive posterior tibial pulse bilateral, no edema, capillary refill less than 2 seconds Lungs: CTA bilateral, no rhonchi, no rales , no accessory muscle use Abdominal: soft, +tender to palpation RLQ and LLQ, no guarding, no appreciable organomegaly, normal bowel sounds Ext: no gross muscle atrophy, muscle strength 5 out of 5 in all 4 extremities grossly, no contractures, Neuro: CN II-XI grossly intact, light touch intact all 4 extremities, finger to nose within normal limits, no asterixis Psych: Alert, oriented, appropriate affect Results CBC & Chem 7: 07/15/19 23:33 07/15/19 23:33 Labs: Abnormal Lab Results - Last 24 Hours (Table) 07/15/19 07/15/19 07/15/19 Range/Units 23:33 23:33 23:33 RBC 2.70 L (3.80-5.40) m/uL Hgb 10.7 L (11.4-16.0) gm/dL Hct 31.9 L (34.0-46.0) % MCV 118.1 H D (80.0-100.0) fL MCH 39.7 H (25.0-35.0) pg RDW 16.2 H (11.5-15.5) % Plt Count 90 L (150-450) k/uL Macrocytosis Marked A PT (9.0-12.0) sec INR (<1.2) APTT (22.0-30.0) sec Sodium 135 L (137-145) mmol/L Potassium 2.6 L* (3.5-5.1) mmol/L Chloride 94 L (98-107) mmol/L BUN 4 L (7-17) mg/dL Creatinine 0.47 L (0.52-1.04) mg/dL Calcium 8.3 L (8.4-10.2) mg/dL Phosphorus (2.5-4.5) mg/dL Magnesium (1.6-2.3) mg/dL Total Bilirubin 2.4 H (0.2-1.3) mg/dL AST 453 H (14-36) U/L ALT 35 H (4-34) U/L Alkaline Phosphatase 316 H (38-126) U/L Stool Occult Blood Positive H (Negative) 07/15/19 07/15/19 Range/Units 23:33 23:33 RBC (3.80-5.40) m/uL Hgb (11.4-16.0) gm/dL Hct (34.0-46.0) % MCV (80.0-100.0) fL MCH (25.0-35.0) pg RDW (11.5-15.5) % Plt Count (150-450) k/uL Macrocytosis PT 16.1 H (9.0-12.0) sec INR 1.6 H (<1.2) APTT 31.4 H (22.0-30.0) sec Sodium (137-145) mmol/L Potassium (3.5-5.1) mmol/L Chloride (98-107) mmol/L BUN (7-17) mg/dL Creatinine (0.52-1.04) mg/dL Calcium (8.4-10.2) mg/dL Phosphorus 2.1 L (2.5-4.5) mg/dL Magnesium 1.5 L (1.6-2.3) mg/dL Total Bilirubin (0.2-1.3) mg/dL AST (14-36) U/L ALT (4-34) U/L Alkaline Phosphatase (38-126) U/L Stool Occult Blood (Negative) Assessment and Plan Assessment: Acute blood loss anemia due to suspected lower GI bleed Alcoholic liver disease Alcoholic coagulopathy Hypokalemia Hypomagnesemia hemorrhoids GERD Chronic thrombocytopenia Chronic alcohol dependence Tobacco abuse Chronic neuropathy Plan: The patient is admitted anticipated greater than 2 midnight stay with acute blood loss anemia secondary to suspected internal and external hemorrhoids, and the patient went with alcoholic liver disease and subsequent alcoholic coagulopathy presented with INR 1.6 with multiple electrolyte abnormalities including hypokalemia, hyponatremia and hypomagnesemia which will be replaced. The patient is placed on symptom triggered [facility] alcohol withdrawal protocol with Ativan as needed. The patient is also noted to be thrombocytopenic secondary to alcoholic liver disease, we will however continue to monitor her platelets. Continue banana bag. We'll give a dose of vitamin K and repeat INR in the morning, we'll continue to trend CBC, continue PPI therapy, NPO with GI consult. Initiate Anusol HC therapy for hemorrhoids. Continue to follow patient's clinical course. The patient is admitted with an anticipated greater than 2 midnight stay for evaluation of GI bleed requiring packed red blood cell transfusion. Surrogate decision-maker: Parents CODE STATUS:Full DVT prophylaxis: SCDs Discussed with: Patient. nursing Anticipated discharge date: 2-[address]: home A total of 65 minutes was spent on the care of this complex patient more than 50% of the time was spent in counseling and care coordination.
[2019-07-16] MEDS ORDERED: PHYTONADIONE ORAL 5 MG/5 ML ORAL.SYRG PO ONE (03:30)
[2019-07-16] MEDS: LORazepam 2 MG/ML INJ IV PRN (03:37)
[2019-07-16] MEDS: MORPHINE SULFATE 4 MG/ML SYRINGE IV PRN ×5 (03:39→23:30)
[2019-07-16 06:42] LABS: INR 1.6 (<1.2); Prothrombin Time 16.3 sec (9.0-12.0)
[2019-07-16] MEDS: PANTOPRAZOLE 40 MG/10 ML VIAL IVP SCH ×2 (08:41→22:05)
[2019-07-16] MEDS: HYDROCORTISONE SUPPOSITORY 25 MG SUPP RECTAL SCH ×2 (08:49→22:05)
[2019-07-16 09:43] LABS: Anisocytosis Slight; Basophils % (A) 0 %; Eosinophils # (A) 0.1 k/uL (0-0.7); Eosinophils % (A) 3 %; HCT 26.7 % (34.0-46.0); Lymphocytes # (A) 1.3 k/uL (1.0-4.8); Lymphocytes % (A) 29 %; MCH 40.6 pg (25.0-35.0); MCHC 34.1 g/dL (31.0-37.0); MCV 119.2 fL (80.0-100.0); Macrocytosis Marked; Mean Platelet Volume 10.6; Monocytes # (A) 0.1 k/uL (0-1.0); Monocytes % (A) 2 %; Neutrophils # (A) 2.9 k/uL (1.3-7.7); Neutrophils % (A) 65 %; RBC 2.24 m/uL (3.80-5.40); RDW 16.1 % (11.5-15.5); WBC 4.5 k/uL (3.8-10.6)
[2019-07-16 09:51] LABS: ALT 29 U/L (4-34); AST 314 U/L (14-36); African American GFR (CKD) >90 (>60 ml/min/1.73 sqM); Albumin 2.7 g/dL (3.5-5.0); Alkaline Phosphatase 280 U/L (38-126); Anion Gap 5 mmol/L; Blood Urea Nitrogen 4 mg/dL (7-17); Calcium 7.3 mg/dL (8.4-10.2); Carbon Dioxide 31 mmol/L (22-30); Chloride 100 mmol/L (98-107); Glucose 87 mg/dL (74-99); Magnesium 2.6 mg/dL (1.6-2.3); Non-African American GFR(CKD) >90 (>60 ml/min/1.73 sqM); Potassium 3.8 mmol/L (3.5-5.1); Sodium 136 mmol/L (137-145); Total Bilirubin 1.9 mg/dL (0.2-1.3)
[2019-07-16 09:58] LABS: HGB 9.1 gm/dL (11.4-16.0)
[2019-07-16 11:58] LABS: Platelet Count 68 k/uL (150-450); Poikilocytosis (M) Present
[2019-07-16 12:03] LABS: Anisocytosis Slight; Basophils % (A) 0 %; Eosinophils # (A) 0.1 k/uL (0-0.7); Eosinophils % (A) 3 %; HCT 24.4 % (34.0-46.0); HGB 8.3 gm/dL (11.4-16.0); Lymphocytes # (A) 0.9 k/uL (1.0-4.8); Lymphocytes % (A) 28 %; MCH 40.4 pg (25.0-35.0); MCHC 33.8 g/dL (31.0-37.0); MCV 119.4 fL (80.0-100.0); Macrocytosis Marked; Mean Platelet Volume 10.9; Monocytes # (A) 0.1 k/uL (0-1.0); Monocytes % (A) 2 %; Neutrophils # (A) 2.2 k/uL (1.3-7.7); Neutrophils % (A) 67 %; Platelet Count 63 k/uL (150-450); RBC 2.05 m/uL (3.80-5.40); RDW 16.1 % (11.5-15.5); WBC 3.3 k/uL (3.8-10.6)
--- NOTE | 2019-07-16 17:23 | P.PN ---
Subjective Progress Note Date: 07/16/19 Principal diagnosis: Bright red blood per rectum Patient is a 39-year-old female with a past medical history of chronic alcoholism, alcoholic liver disease, coagulopathy secondary to liver disease, and internal and external hemorrhoids that presented to the emergency department with chief complaint of bright red blood per rectum and some abdominal pain. In the ER she underwent an extensive evaluation. On arrival she was found to be tachycardic with a pulse rate of 126, laboratory analysis showed a hemoglobin 10.7 which was up from her prior, platelet count of 90, potassium 2.6, INR 1.6, magnesium 1.5, bilirubin 2.4, AST 453, ALT 35, alkaline phosphatase 316, fecal occult blood was positive. She was admitted for further monitoring of her possible GI bleed and correction of her potassium. Patient has continued to drink after being discharged from the hospital several months ago despite being told she avoid it. She states she's been trying hard to cut back but it is been difficult. She reports multiple family members that of alcoholism. Patient seen and examined at bedside. She reports she's been feeling very weak for the last 2 days, she reports that the blood coming from her rectum is during bowel movements and she hears a stream of blood coming out and sees bright red blood on wiping but there is none truly mixed in the stool. She's been struggling to not drink any alcohol. She was feeling faint like she would pass out yesterday. She states that she attempted to follow up with GI for discharge from the hospital last time it was told they do not accept her insurance and she was unsure where to go. It is unclear whether she actually attempted to follow up with Dr. Galaviz. Objective - Vital Signs Vital signs: Vital Signs Temp 98.1 F 07/16/19 15:35 Pulse 85 07/16/19 15:35 Resp 17 07/16/19 15:35 BP 107/62 07/16/19 15:35 Pulse Ox 97 07/16/19 15:35 Intake & Output 07/15/19 07/16/19 07/16/19 18:59 06:59 18:59 Weight 47.627 kg 47.627 kg Other: # Voids 2 # Bowel Movements 0 - Exam General: non toxic, no distress, appears older than stated age Derm: warm, dry Head: atraumatic, normocephalic, symmetric Eyes: EOMI, no lid lag, anicteric sclera Mouth: no lip lesion, mucus membranes moist Cardiovascular: S1S2 reg, no murmur, positive posterior tibial pulse bilateral, Lungs: CTA bilateral, no rhonchi, no rales , no accessory muscle use Abdominal: soft, +tender to palpation LLQ, no guarding, no appreciable organomegaly Ext: no gross muscle atrophy, no edema, no contractures Neuro: CN II-XI grossly intact, no focal neuro deficits Psych: Alert, oriented, appropriate affect - Labs CBC & Chem 7: 07/16/19 11:30 07/16/19 06:21 Labs: Abnormal Lab Results - Last 24 Hours (Table) 07/15/19 07/15/19 07/15/19 Range/Units 23:33 23:33 23:33 WBC (3.8-10.6) k/uL RBC 2.70 L (3.80-5.40) m/uL Hgb 10.7 L (11.4-16.0) gm/dL Hct 31.9 L (34.0-46.0) % MCV 118.1 H D (80.0-100.0) fL MCH 39.7 H (25.0-35.0) pg RDW 16.2 H (11.5-15.5) % Plt Count 90 L (150-450) k/uL Lymphocytes # (1.0-4.8) k/uL Macrocytosis Marked A PT (9.0-12.0) sec INR (<1.2) APTT (22.0-30.0) sec Sodium 135 L (137-145) mmol/L Potassium 2.6 L* (3.5-5.1) mmol/L Chloride 94 L (98-107) mmol/L Carbon Dioxide (22-30) mmol/L BUN 4 L (7-17) mg/dL Creatinine 0.47 L (0.52-1.04) mg/dL Calcium 8.3 L (8.4-10.2) mg/dL Phosphorus (2.5-4.5) mg/dL Magnesium (1.6-2.3) mg/dL Total Bilirubin 2.4 H (0.2-1.3) mg/dL AST 453 H (14-36) U/L ALT 35 H (4-34) U/L Alkaline Phosphatase 316 H (38-126) U/L Total Protein (6.3-8.2) g/dL Albumin (3.5-5.0) g/dL Stool Occult Blood Positive H (Negative) 07/15/19 07/15/19 07/16/19 Range/Units 23:33 23:33 06:21 WBC (3.8-10.6) k/uL RBC (3.80-5.40) m/uL Hgb (11.4-16.0) gm/dL Hct (34.0-46.0) % MCV (80.0-100.0) fL MCH (25.0-35.0) pg RDW (11.5-15.5) % Plt Count (150-450) k/uL Lymphocytes # (1.0-4.8) k/uL Macrocytosis PT 16.1 H 16.3 H (9.0-12.0) sec INR 1.6 H 1.6 H (<1.2) APTT 31.4 H (22.0-30.0) sec Sodium (137-145) mmol/L Potassium (3.5-5.1) mmol/L Chloride (98-107) mmol/L Carbon Dioxide (22-30) mmol/L BUN (7-17) mg/dL Creatinine (0.52-1.04) mg/dL Calcium (8.4-10.2) mg/dL Phosphorus 2.1 L (2.5-4.5) mg/dL Magnesium 1.5 L (1.6-2.3) mg/dL Total Bilirubin (0.2-1.3) mg/dL AST (14-36) U/L ALT (4-34) U/L Alkaline Phosphatase (38-126) U/L Total Protein (6.3-8.2) g/dL Albumin (3.5-5.0) g/dL Stool Occult Blood (Negative) 07/16/19 07/16/19 07/16/19 Range/Units 06:21 06:21 11:30 WBC 3.3 L (3.8-10.6) k/uL RBC 2.24 L 2.05 L (3.80-5.40) m/uL Hgb 9.1 L D 8.3 L (11.4-16.0) gm/dL Hct 26.7 L 24.4 L (34.0-46.0) % MCV 119.2 H 119.4 H (80.0-100.0) fL MCH 40.6 H 40.4 H (25.0-35.0) pg RDW 16.1 H 16.1 H (11.5-15.5) % Plt Count 68 L 63 L (150-450) k/uL Lymphocytes # 0.9 L (1.0-4.8) k/uL Macrocytosis Marked A Marked A PT (9.0-12.0) sec INR (<1.2) APTT (22.0-30.0) sec Sodium 136 L (137-145) mmol/L Potassium (3.5-5.1) mmol/L Chloride (98-107) mmol/L Carbon Dioxide 31 H (22-30) mmol/L BUN 4 L (7-17) mg/dL Creatinine 0.49 L (0.52-1.04) mg/dL Calcium 7.3 L (8.4-10.2) mg/dL Phosphorus (2.5-4.5) mg/dL Magnesium 2.6 H (1.6-2.3) mg/dL Total Bilirubin 1.9 H (0.2-1.3) mg/dL AST 314 H (14-36) U/L ALT (4-34) U/L Alkaline Phosphatase 280 H (38-126) U/L Total Protein 6.0 L (6.3-8.2) g/dL Albumin 2.7 L (3.5-5.0) g/dL Stool Occult Blood (Negative) Assessment and Plan Assessment: GI bleed, likely due to hemorrhoids with acute blood loss anemia - follow CBC - GI recs - Clear liquid idet - Anusol - likely needs banding of hemorrhoids Hyponatremia, Hypokalemia and hypomagnesemia -Replace and recheck in a.m. 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 Alcohol abuse with impending DTs -Continue with [facility] protocol -Thiamine and folic acid supplementation Coagulopathy secondary to liver disease -Status post oral vitamin K -Repeat PT/INR in a.m. GERD -PPI Tobacco abuse -Cessation -Nicotine replacement DVT prophylaxis: SCDs Discussed with: Patient, nursing, Ty from GI Anticipated discharge: 1-[address]: home vs inpatient substance abuse rehab A total of 60 minutes was spent on the care of this complex patient more than 50% of the time was spent in counseling and care coordination.
[2019-07-16] MEDS: THIAMINE 100 MG TAB PO SCH (17:28)
[2019-07-16 20:17] LABS: Anisocytosis Slight; Basophils % (A) 0 %; Eosinophils # (A) 0.1 k/uL (0-0.7); Eosinophils % (A) 3 %; HCT 25.7 % (34.0-46.0); HGB 8.6 gm/dL (11.4-16.0); Lymphocytes # (A) 1.2 k/uL (1.0-4.8); Lymphocytes % (A) 32 %; MCHC 33.3 g/dL (31.0-37.0); Macrocytosis Marked; Monocytes # (A) 0.1 k/uL (0-1.0); Monocytes % (A) 2 %; Neutrophils # (A) 2.3 k/uL (1.3-7.7); Neutrophils % (A) 62 %; RBC 2.14 m/uL (3.80-5.40); RDW 16.1 % (11.5-15.5); WBC 3.7 k/uL (3.8-10.6)
[2019-07-16 20:18] LABS: Platelet Count 68 k/uL (150-450)
[2019-07-16] MEDS: FOLIC ACID 1 MG TAB PO SCH (22:04)
[2019-07-17] MEDS: LORazepam 2 MG/ML INJ IV PRN ×2 (00:46→22:47)
--- NOTE | 2019-07-17 01:47 | CONS ---
CONSULTATION DATE OF DICTATION: 07/16/2019. REQUESTING PHYSICIAN: Dr. Riggs REASON FOR CONSULTATION: Rectal bleeding. History of alcohol abuse. HISTORY OF PRESENT ILLNESS: The patient is a 39-year-old pleasant white female with history of heavy alcoholism and alcoholic liver disease, who was admitted to hospital complaining of bright red blood per rectum for the last 3 days duration. She has been having 3-4 bowel movements daily with bright red blood per rectum and occasional clots. She denies any constipation. She complains of occasional weakness and lightheadedness and hence came into the emergency room and subsequently admitted to the hospital for further evaluation. She has a history of heavy alcohol abuse. She drinks approximately a pint a day. She was admitted to the hospital May of 2019 at which time she was evaluated by Dr. Haywood. She had an EGD and colonoscopy done at that time, which showed evidence of small internal and external hemorrhoids and mild antral gastritis. PAST MEDICAL HISTORY: Significant for alcohol abuse and gastroesophageal reflux disease. SURGICAL HISTORY: EGD and colonoscopy in May of the last year as mentioned above, and left knee surgery. SOCIAL HISTORY: Chronic smoker. Alcohol use as mentioned above. FAMILY HISTORY: Mother has diabetes mellitus. Brother has diabetes mellitus and father has hypertension. MEDICATIONS: At home include Tylenol P.M., Bentyl, iron sulfate, [place], Protonix, Lasix. ALLERGIES: KEFLEX and CODEINE. REVIEW OF SYSTEMS: CARDIOPULMONARY: No chest pain or shortness of breath. GENITOURINARY: No dysuria or hematuria. MUSCULOSKELETAL unremarkable. SKIN unremarkable. ENDOCRINE unremarkable. PSYCHIATRIC unremarkable. NEUROLOGY unremarkable. ENT/vision unremarkable. CONSTITUTIONAL: No recent weight loss. No fever, chills, night sweats. PHYSICAL EXAMINATION: She appears comfortable. No apparent distress. VITAL SIGNS: Stable. Blood pressure is 107/86 with a pulse rate 82, and temperature 98.1. HEENT examination unremarkable. Conjunctivae pink. Sclerae anicteric. Oral cavity no lesions. NECK: No JVD or lymph node enlargement. The chest was clear to auscultation. HEART: Regular rate and rhythm. ABDOMEN: Soft, nontender, nondistended. Bowel sounds are positive. No organomegaly. Mild tenderness in the right upper quadrant area. EXTREMITIES: No pedal edema. SKIN no rashes. NEUROLOGIC: Alert and oriented x3. No focal deficits. LABS: WBC 4.9, hemoglobin 10.7 platelets 90,000. Today hemoglobin is 8.3, platelets 63,000 and WBC 3.3. INR is 1.6, bilirubin is 2.4. Today it is 1.9. AST 453, ALT 35, alkaline phosphatase 316. Stool occult blood was positive. IMPRESSION: 1. Rectal bleeding for the last 3 days duration. She had a colonoscopy by Dr. Haywood 3 months ago in May of 2019 that showed small internal and external hemorrhoids. Most likely the bleeding is related to internal hemorrhoids. 2. Pancytopenia secondary to underlying liver disease with alcoholic cirrhosis of the liver. Part of the anemia is related to blood loss. 3. Elevated LFTs and mild jaundice secondary to alcoholic hepatitis superimposed on alcoholic cirrhosis of the liver. 4. History of heavy alcohol abuse. RECOMMENDATION: 1. Monitor CBC on a daily basis. 2. Agree with surgical consultation for management of internal hemorrhoids. 3. Repeat LFTs in the morning. 4. Abstinence from alcohol. 5. We will follow with you closely. Thank you for this consultation. MMODL / IJN: [id number] /
[2019-07-17] MEDS: MORPHINE SULFATE 4 MG/ML SYRINGE IV PRN ×2 (04:03→08:08)
[2019-07-17] MEDS: THIAMINE 100 MG TAB PO SCH ×2 (08:08→17:37)
[2019-07-17] MEDS: HYDROCORTISONE SUPPOSITORY 25 MG SUPP RECTAL SCH ×2 (08:08→20:44)
[2019-07-17] MEDS: FOLIC ACID 1 MG TAB PO SCH (08:08)
[2019-07-17] MEDS: PANTOPRAZOLE 40 MG/10 ML VIAL IVP SCH ×2 (08:08→20:44)
[2019-07-17 09:52] LABS: ALT 22 U/L (4-34); AST 155 U/L (14-36); African American GFR (CKD) >90 (>60 ml/min/1.73 sqM); Albumin 2.4 g/dL (3.5-5.0); Alkaline Phosphatase 252 U/L (38-126); Anion Gap 5 mmol/L; Blood Urea Nitrogen <2 mg/dL (7-17); Calcium 7.6 mg/dL (8.4-10.2); Carbon Dioxide 25 mmol/L (22-30); Chloride 108 mmol/L (98-107); Glucose 89 mg/dL (74-99); Magnesium 1.9 mg/dL (1.6-2.3); Non-African American GFR(CKD) >90 (>60 ml/min/1.73 sqM); Potassium 3.1 mmol/L (3.5-5.1); Sodium 138 mmol/L (137-145); Total Bilirubin 2.1 mg/dL (0.2-1.3); Total Protein 5.2 g/dL (6.3-8.2)
[2019-07-17 10:03] LABS: Anisocytosis Slight; Basophils % (A) 1 %; Eosinophils # (A) 0.1 k/uL (0-0.7); Eosinophils % (A) 3 %; HCT 24.6 % (34.0-46.0); HGB 8.5 gm/dL (11.4-16.0); Lymphocytes # (A) 1.2 k/uL (1.0-4.8); Lymphocytes % (A) 46 %; MCH 40.3 pg (25.0-35.0); MCHC 34.4 g/dL (31.0-37.0); MCV 117.1 fL (80.0-100.0); Macrocytosis Marked; Mean Platelet Volume 10.2; Monocytes # (A) 0.1 k/uL (0-1.0); Monocytes % (A) 3 %; Neutrophils # (A) 1.2 k/uL (1.3-7.7); Neutrophils % (A) 46 %; RDW 16.2 % (11.5-15.5); WBC 2.6 k/uL (3.8-10.6)
[2019-07-17 10:04] LABS: Platelet Count 44 k/uL (150-450)
[2019-07-17 11:47] VITALS: BMI 19.8
[2019-07-17] MEDS ORDERED: ACETAMINOPHEN TAB 325 MG TAB PO PRN (11:54)
[2019-07-17] MEDS ORDERED: MORPHINE SULFATE 2 MG/ML SYRINGE IV PRN (11:55)
--- NOTE | 2019-07-17 12:30 | P.GSCN ---
History of Present Illness Consult date: 07/17/19 Reason for Consult: Hemorrhoids Requesting physician: Camilla Gupta History of present illness: CHIEF COMPLAINT: Hemorrhoids HISTORY OF PRESENT ILLNESS: 39-year-old female who presented to the emergency room with a chief complaint of bright red blood per rectum. Patient recently underwent EGD and colonoscopy in May [address] Haywood revealing internal and external hemorrhoids and gastritis. Patient's hemoglobin 10.7 on admission. Most recent hemoglobin 8.5. Patient denies any rectal bleeding today. PAST MEDICAL HISTORY: See list. PAST SURGICAL HISTORY: See list. SOCIAL HISTORY: No illicit drug use. REVIEW OF SYSTEMS: CONSTITUTIONAL: Denies fever or chills. HEENT: Denies blurred vision, vision changes, or eye pain. Denies hemoptysis CARDIOVASCULAR: Denies chest pain or pressure. RESPIRATORY: No shortness of breath. GASTROINTESTINAL: Refer to [facility] for pertinent findings HEMATOLOGIC: Denies bleeding disorders. GENITOURINARY: Denies any blood in urine. SKIN: Denies pruitis. Denies rash. PHYSICAL EXAM: VITAL SIGNS: Reviewed. GENERAL: Well-developed in no acute distress. HEENT: No sclera icterus. Extraocular movements grossly intact. Moist buccal mucosa. Head is atraumatic, normocephalic. ABDOMEN: Soft. Nondistended. Nontender. . NEUROLOGIC: Alert and oriented. Cranial nerves II through XII grossly intact. LABORATORY DATA: Most recent hemoglobin 8.5. ASSESSMENT: 1. Internal and external hemorrhoids 2. Acute blood loss anemia, secondary to above PLAN: Case discussed with Dr. Adkins and Dr. Arthur. Plan is to monitor hemoglobin this weekend. If her hemoglobin remains stable, the patient may be discharged home and follow up with Dr. Arthur outpatient. If bleeding reoccurs and hemoglobin drops, we will continue hospitalization and plan for hemorrhoid banding early next week with Dr. Arthur. Okay for regular diet. Nurse practitioner note has been reviewed by physician. Signing provider agrees with the documented findings, assessment, and plan of care. Past Medical History Past Medical History: GERD/Reflux Additional Past Medical History / Comment(s): Hepatic steatosis, ETOH abuse, gastritis, duodenitis, lower GI bleed, colitis, hemorrhoids, bronchitis, R side nephrolithiasis with surgery, bilateral ovarian cysts, neuropathy bilateral hands/legs and tops of both feet, hypokalemia, hypoalbumenemia, pancytopenia. History of Any Multi-Drug Resistant Organisms: None Reported Past Surgical History: Appendectomy, Orthopedic Surgery Additional Past Surgical History / Comment(s): Left knee surgeries-3 arthroscopic and one open, EGDs, colonoscopies, R sided lithotripsy. Past Anesthesia/Blood Transfusion Reactions: No Reported Reaction Additional Past Anesthesia/Blood Transfusion Reaction / Comm: Pt has received blood in past without reaction. Smoking Status: Current every day smoker - Past Family History Mother Family Medical History: Diabetes Mellitus Additional Family Medical History / Comment(s): Borderline HTN Brother(s) Family Medical History: Diabetes Mellitus Father Family Medical History: Hypertension Additional Family Medical History / Comment(s): BOARDERLINE DM Medications and Allergies Home Medications Medication Instructions Recorded Confirmed Type Acetaminophen/Diphenhydramine 1 tab PO HS PRN 05/12/19 07/16/19 History [Tylenol PM 500-25mg] Dicyclomine [Bentyl] 20 mg PO QID PRN #60 tab 05/15/19 07/16/19 Rx Pantoprazole [Protonix] 40 mg PO DAILY #30 tablet. 05/15/19 07/16/19 Rx Albuterol Sulfate [Ventolin HFA] 1 - 2 puff INHALATION RT-Q6H PRN 07/16/19 07/16/19 History Cetirizine HCl [Zyrtec] 10 mg PO DAILY 07/16/19 07/16/19 History Fluticasone Nasal [place] [Flonase 1 spr EA NOSTRIL DAILY PRN 07/16/19 07/16/19 History Nasal [place]] Furosemide [Lasix] 10 mg PO DAILY PRN 07/16/19 07/16/19 History HYDROcodone/APAP 7.5-325MG [[place] 1 tab PO Q6H PRN 07/16/19 07/16/19 History 7.5-325] Allergies Allergy/AdvReac Type Severity Reaction Status Date / Time cephalexin monohydrate Allergy Rash/Hives Verified 07/16/19 07:21 [From Keflex] codeine Allergy Rash/Hives Verified 07/16/19 07:21 Surgical - Exam Vital Signs Temp Pulse Resp BP Pulse Ox 98.2 F 126 H 24 102/67 96 07/15/19 22:54 07/15/19 22:54 07/15/19 22:54 07/15/19 22:54 07/15/19 22:54 Results - Labs 07/17/19 08:41 07/17/19 08:41 Abnormal Lab Results - Last 24 Hours (Table) 07/16/19 07/17/19 07/17/19 Range/Units 19:21 08:41 08:41 WBC 3.7 L 2.6 L (3.8-10.6) k/uL RBC 2.14 L 2.10 L (3.80-5.40) m/uL Hgb 8.6 L 8.5 L (11.4-16.0) gm/dL Hct 25.7 L 24.6 L (34.0-46.0) % MCV 120.0 H 117.1 H (80.0-100.0) fL MCH 40.0 H 40.3 H (25.0-35.0) pg RDW 16.1 H 16.2 H (11.5-15.5) % Plt Count 68 L 44 L (150-450) k/uL Neutrophils # 1.2 L (1.3-7.7) k/uL Macrocytosis Marked A Marked A Potassium 3.1 L (3.5-5.1) mmol/L Chloride 108 H (98-107) mmol/L BUN <2 L (7-17) mg/dL Creatinine 0.40 L (0.52-1.04) mg/dL Calcium 7.6 L (8.4-10.2) mg/dL Total Bilirubin 2.1 H (0.2-1.3) mg/dL AST 155 H (14-36) U/L Alkaline Phosphatase 252 H (38-126) U/L Total Protein 5.2 L (6.3-8.2) g/dL Albumin 2.4 L (3.5-5.0) g/dL Diabetes panel 07/17/19 Range/Units 08:41 Sodium 138 (137-145) mmol/L Potassium 3.1 L (3.5-5.1) mmol/L Chloride 108 H (98-107) mmol/L Carbon Dioxide 25 (22-30) mmol/L BUN <2 L (7-17) mg/dL Creatinine 0.40 L (0.52-1.04) mg/dL Glucose 89 (74-99) mg/dL Calcium 7.6 L (8.4-10.2) mg/dL AST 155 H (14-36) U/L ALT 22 (4-34) U/L Alkaline Phosphatase 252 H (38-126) U/L Total Protein 5.2 L (6.3-8.2) g/dL Albumin 2.4 L (3.5-5.0) g/dL Calcium panel 07/17/19 Range/Units 08:41 Calcium 7.6 L (8.4-10.2) mg/dL Albumin 2.4 L (3.5-5.0) g/dL Pituitary panel 07/17/19 Range/Units 08:41 Sodium 138 (137-145) mmol/L Potassium 3.1 L (3.5-5.1) mmol/L Chloride 108 H (98-107) mmol/L Carbon Dioxide 25 (22-30) mmol/L BUN <2 L (7-17) mg/dL Creatinine 0.40 L (0.52-1.04) mg/dL Glucose 89 (74-99) mg/dL Calcium 7.6 L (8.4-10.2) mg/dL Adrenal panel 07/17/19 Range/Units 08:41 Sodium 138 (137-145) mmol/L Potassium 3.1 L (3.5-5.1) mmol/L Chloride 108 H (98-107) mmol/L Carbon Dioxide 25 (22-30) mmol/L BUN <2 L (7-17) mg/dL Creatinine 0.40 L (0.52-1.04) mg/dL Glucose 89 (74-99) mg/dL Calcium 7.6 L (8.4-10.2) mg/dL Total Bilirubin 2.1 H (0.2-1.3) mg/dL AST 155 H (14-36) U/L ALT 22 (4-34) U/L Alkaline Phosphatase 252 H (38-126) U/L Total Protein 5.2 L (6.3-8.2) g/dL Albumin 2.4 L (3.5-5.0) g/dL
--- NOTE | 2019-07-17 12:47 | P.PN ---
Subjective Progress Note Date: 07/17/19 Principal diagnosis: Bright red blood per rectum Patient is a 39-year-old female with a past medical history of chronic alcoholism, alcoholic liver disease, coagulopathy secondary to liver disease, and internal and external hemorrhoids that presented to the emergency department with chief complaint of bright red blood per rectum and some abdominal pain. In the ER she underwent an extensive evaluation. On arrival she was found to be tachycardic with a pulse rate of 126, laboratory analysis showed a hemoglobin 10.7 which was up from her prior, platelet count of 90, potassium 2.6, INR 1.6, magnesium 1.5, bilirubin 2.4, AST 453, ALT 35, alkaline phosphatase 316, fecal occult blood was positive. She was admitted for further monitoring of her possible GI bleed and correction of her potassium. Patient has continued to drink after being discharged from the hospital several months ago despite being told she avoid it. She states she's been trying hard to cut back but it is been difficult. She reports multiple family members that of alcoholism. Her abdominal pain is better, no more bleeding from her rectum. Seen by surgery would be a candidate for hemorrhoid treatment as an outpatient. Patient seen and examined at bedside. No chest pain, shortness of breath, nausea improved, belly pain improving, feeling hungry Objective - Vital Signs Vital signs: Vital Signs Temp 98.2 F 07/17/19 05:05 Pulse 98 07/17/19 05:05 Resp 15 07/17/19 05:05 BP 90/53 07/17/19 05:05 Pulse Ox 92 L 07/17/19 05:05 Intake & Output 07/16/19 07/17/19 07/17/19 18:59 06:59 18:59 Intake Total 1600 Balance 1600 Weight 47.627 kg 47.627 kg Intake: Intake, IV Titration 1600 Amount Sodium Chloride 0.9% 1, 1600 000 ml @ 100 mls/hr IV . Q10H7M ONE with Mvi, Adult No.4 with Vit K 10 ml with Thiamine 100 mg with Folic Acid 1 mg Rx#: [id number] Other: # Voids 2 2 # Bowel Movements 0 - Exam General: non toxic, no distress, appears older than stated age Derm: warm, dry Head: atraumatic, normocephalic, symmetric Eyes: EOMI, no lid lag, anicteric sclera Mouth: no lip lesion, mucus membranes moist Cardiovascular: S1S2 reg, no murmur, positive posterior tibial pulse bilateral, Lungs: CTA bilateral, no rhonchi, no rales , no accessory muscle use Abdominal: soft, non tender to palpation, no guarding, no appreciable organomegaly Ext: no gross muscle atrophy, no edema, no contractures Neuro: CN II-XI grossly intact, no focal neuro deficits Psych: Alert, oriented, appropriate affect - Labs CBC & Chem 7: 07/17/19 08:41 07/17/19 08:41 Labs: Abnormal Lab Results - Last 24 Hours (Table) 07/16/19 07/17/19 07/17/19 Range/Units 19:21 08:41 08:41 WBC 3.7 L 2.6 L (3.8-10.6) k/uL RBC 2.14 L 2.10 L (3.80-5.40) m/uL Hgb 8.6 L 8.5 L (11.4-16.0) gm/dL Hct 25.7 L 24.6 L (34.0-46.0) % MCV 120.0 H 117.1 H (80.0-100.0) fL MCH 40.0 H 40.3 H (25.0-35.0) pg RDW 16.1 H 16.2 H (11.5-15.5) % Plt Count 68 L 44 L (150-450) k/uL Neutrophils # 1.2 L (1.3-7.7) k/uL Macrocytosis Marked A Marked A Potassium 3.1 L (3.5-5.1) mmol/L Chloride 108 H (98-107) mmol/L BUN <2 L (7-17) mg/dL Creatinine 0.40 L (0.52-1.04) mg/dL Calcium 7.6 L (8.4-10.2) mg/dL Total Bilirubin 2.1 H (0.2-1.3) mg/dL AST 155 H (14-36) U/L Alkaline Phosphatase 252 H (38-126) U/L Total Protein 5.2 L (6.3-8.2) g/dL Albumin 2.4 L (3.5-5.0) g/dL Assessment and Plan Assessment: GI bleed, Due to hemorrhoids with acute blood loss anemia - follow CBC - GI recs - advanced to Soft diet - Anusol - Will follow with Dr. Arthur after discharge for treatment Hypokalemia -Replace and recheck in a.m. Alcoholic hepatitis with probable underlying cirrhosis -AST and bilirubin already improving -Abstain from alcohol -Social work recs -Flor scored 25.9, no indication for steroids -GI recommendations appreciated -Hepatitis profile tested 05/13/19 were all negative -Obtained CT abdomen and pelvis 05/12/19 which showed hepatosplenomegaly with significant fatty replacement of the liver. Pancytopenia, due to bone marrow supression from alcohol - follow CBC - stop alcohol use Alcohol abuse with impending DTs -Continue with [facility] protocol -Thiamine and folic acid supplementation Coagulopathy secondary to liver disease -Status post oral vitamin K -Repeat PT/INR in a.m. GERD -PPI Tobacco abuse -Cessation -Nicotine replacement hypomagnesemia, resolved Hyponatremia, resolved DVT prophylaxis: SCDs Discussed with: Patient, nursing, Ty from GI, Riana Reeves NP Anticipated discharge: in AM Anticipated discharge place: home vs inpatient substance abuse rehab A total of 30 minutes was spent on the care of this complex patient more than 50% of the time was spent in counseling and care coordination.
[2019-07-17] MEDS ORDERED: POTASSIUM BICARBONATE/CIT AC 20 MEQ TABLET.EFF PO ONE (13:00)
--- NOTE | 2019-07-17 19:50 | PN ---
PROGRESS NOTE DATE OF SERVICE: July 17, 2019 Patient is a 39-year-old pleasant white female admitted to hospital with rectal bleeding and anemia. She was seen by surgery, by Dr. Arthur today for management of internal hemorrhoids. This morning, she did not have any further episodes of bleeding. She is complaining of some rectal pain. No nausea, vomiting. No abdominal pain. PHYSICAL EXAMINATION: Vital signs are stable. Blood pressure is 94/52, pulse rate 118, temperature 98. HEENT examination unremarkable. Conjunctivae pink. Sclerae anicteric. Oral cavity no lesions. NECK: No JVD or lymph node enlargement. CHEST: Clear to auscultation. HEART: Regular rate and rhythm. ABDOMEN: Soft: Bowel sounds are positive. No organomegaly. EXTREMITIES: No pedal edema. SKIN: No rashes. NEURO: She is alert and oriented x3. No focal deficits. LABS: WBC 2.6, hemoglobin 8.5, platelets are 44,000, T-bilirubin 2.1, AST 155, ALT 22, alkaline phosphatase 255. IMPRESSION: 1. Alcoholic cirrhosis of the liver with alcoholic liver disease with elevated mild elevation of serum transaminases and bilirubin up to 2.1. 2. History of alcohol abuse. 3. Rectal bleeding, probably from internal hemorrhoids. She did have an EGD, colonoscopy by Dr. Haywood in May of 2019 that showed internal hemorrhoids[address] Dr. Arthur following the patient closely. 4. Pancytopenia, secondary to chronic liver disease. 5. Mild coagulopathy secondary to chronic liver disease. RECOMMENDATIONS: 1. We will start her on Anusol suppository once at bedtime. 2. Monitor CBC on a daily basis. 3. Abstinence from alcohol. 4. Monitor LFTs. We will follow with you closely. Thank you for this consultation. MMODL / IJN: [id number] /
[2019-07-17] MEDS: HYDROcodone/APAP 5-325MG 1 EACH TAB PO PRN (20:49)
[2019-07-18] MEDS: THIAMINE 100 MG TAB PO SCH ×2 (07:16→16:37)
[2019-07-18] MEDS: PANTOPRAZOLE 40 MG/10 ML VIAL IVP SCH ×2 (07:17→19:53)
[2019-07-18] MEDS: FOLIC ACID 1 MG TAB PO SCH (07:17)
[2019-07-18] MEDS: HYDROCORTISONE SUPPOSITORY 25 MG SUPP RECTAL SCH ×2 (07:17→19:53)
[2019-07-18] MEDS: HYDROcodone/APAP 5-325MG 1 EACH TAB PO PRN ×3 (07:25→19:57)
[2019-07-18 07:48] LABS: INR 1.3 (<1.2)
[2019-07-18 07:54] LABS: ALT 25 U/L (4-34); AST 198 U/L (14-36); African American GFR (CKD) >90 (>60 ml/min/1.73 sqM); Albumin 2.1 g/dL (3.5-5.0); Alkaline Phosphatase 248 U/L (38-126); Anion Gap 3 mmol/L; Blood Urea Nitrogen <2 mg/dL (7-17); Calcium 7.3 mg/dL (8.4-10.2); Carbon Dioxide 28 mmol/L (22-30); Chloride 109 mmol/L (98-107); Glucose 93 mg/dL (74-99); Non-African American GFR(CKD) >90 (>60 ml/min/1.73 sqM); Potassium 3.4 mmol/L (3.5-5.1); Sodium 140 mmol/L (137-145); Total Bilirubin 1.6 mg/dL (0.2-1.3); Total Protein 4.9 g/dL (6.3-8.2)
[2019-07-18 08:39] LABS: Anisocytosis Slight; HCT 21.1 % (34.0-46.0); MCH 40.3 pg (25.0-35.0); MCHC 33.3 g/dL (31.0-37.0); MCV 120.8 fL (80.0-100.0); Macrocytosis Marked; Mean Platelet Volume 10.5; RBC 1.75 m/uL (3.80-5.40); RDW 16.9 % (11.5-15.5)
[2019-07-18 08:45] LABS: Platelet Count 52 k/uL (150-450)
[2019-07-18] MEDS ORDERED: POTASSIUM CHLORIDE ER 20 MEQ TAB.ER PO STA (09:58)
[2019-07-18] MEDS ORDERED: MAG HYDROX/AL HYDROX/SIMETH 30 ML, HYOSCYAMINE ELIXIR 10 ML, LIDOCAINE VISCOUS 2% 10 ML PO ONE ×3 (10:15)
--- NOTE | 2019-07-18 10:47 | P.PN ---
Subjective Progress Note Date: 07/18/19 Principal diagnosis: Bright red blood per rectum Patient is a 39-year-old female with a past medical history of chronic alcoholism, alcoholic liver disease, coagulopathy secondary to liver disease, and internal and external hemorrhoids that presented to the emergency department with chief complaint of bright red blood per rectum and some abdominal pain. In the ER she underwent an extensive evaluation. On arrival she was found to be tachycardic with a pulse rate of 126, laboratory analysis showed a hemoglobin 10.7 which was up from her prior, platelet count of 90, potassium 2.6, INR 1.6, magnesium 1.5, bilirubin 2.4, AST 453, ALT 35, alkaline phosphatase 316, fecal occult blood was positive. She was admitted for further monitoring of her possible GI bleed and correction of her potassium. It was felt that her bleeding was likely hemorrhoidal. Patient has continued to drink after being discharged from the hospital several months ago despite being told to avoid it. She states she's been trying cut back but it is been difficult. She reports multiple family members that of alcoholism. Her abdominal pain is better, Initially the bleeding from her rectum had improved. Seen by surgery would be a candidate for hemorrhoid treatment as an outpatient. Her HgB again decreased on the morning of 07/18/19. Patient seen and examined at bedside. Plans of worsening right upper quadrant pain today, no nausea, no vomiting, still with a headache, no tremors, no hallucinations. Overall not feeling well. Objective - Vital Signs Vital signs: Vital Signs Temp 98.2 F 07/18/19 05:35 Pulse 114 H 07/18/19 05:35 Resp 18 07/18/19 08:00 BP 92/54 07/18/19 05:35 Pulse Ox 95 07/18/19 05:35 Intake & Output 07/17/19 07/18/19 07/18/19 18:59 06:59 18:59 Intake Total 460 Balance 460 Weight 47.627 kg Intake: Oral 460 Other: Voiding Method Toilet # Voids 2 1 - Exam General: non toxic, no distress, appears older than stated age Derm: warm, dry Head: atraumatic, normocephalic, symmetric Eyes: EOMI, no lid lag, anicteric sclera Mouth: no lip lesion, mucus membranes moist Cardiovascular: S1S2 reg, no murmur, positive posterior tibial pulse bilateral, Lungs: Decreased bs bilateral, no rhonchi, no rales , no accessory muscle use Abdominal: soft, non tender to palpation, no guarding, no appreciable organomegaly Ext: no gross muscle atrophy, trace edema, no contractures Neuro: CN II-XI grossly intact, no focal neuro deficits Psych: Alert, oriented, appropriate affect - Labs CBC & Chem 7: 07/18/19 07:13 07/18/19 07:13 Labs: Abnormal Lab Results - Last 24 Hours (Table) 07/18/19 07/18/19 07/18/19 Range/Units 07:13 07:13 07:13 WBC 2.0 L (3.8-10.6) k/uL RBC 1.75 L (3.80-5.40) m/uL Hgb 7.0 L D (11.4-16.0) gm/dL Hct 21.1 L (34.0-46.0) % MCV 120.8 H (80.0-100.0) fL MCH 40.3 H (25.0-35.0) pg RDW 16.9 H (11.5-15.5) % Macrocytosis Marked A PT 13.0 H (9.0-12.0) sec INR 1.3 H (<1.2) Potassium 3.4 L (3.5-5.1) mmol/L Chloride 109 H (98-107) mmol/L BUN <2 L (7-17) mg/dL Creatinine 0.40 L (0.52-1.04) mg/dL Calcium 7.3 L (8.4-10.2) mg/dL Total Bilirubin 1.6 H (0.2-1.3) mg/dL AST 198 H (14-36) U/L Alkaline Phosphatase 248 H (38-126) U/L Total Protein 4.9 L (6.3-8.2) g/dL Albumin 2.1 L (3.5-5.0) g/dL Assessment and Plan Assessment: GI bleed, Due to hemorrhoids with acute blood loss anemia - follow CBC, repeat at 1230 - soft diet - Anusol - Plan is for intervention on Saturday or as outpatient depending on HgB Hypokalemia -Replace and recheck in a.m. Alcoholic hepatitis with probable underlying cirrhosis, improving -Abstain from alcohol -Social work recdana Gonzales scored 25.9, no indication for steroids -GI recommendations appreciated -Hepatitis profile tested 05/13/19 were all negative -Obtained CT abdomen and pelvis 05/12/19 which showed hepatosplenomegaly with significant fatty replacement of the liver. Pancytopenia, due to bone marrow suppression from alcohol - Await AM CBC - stop alcohol use Alcohol abuse with impending DTs -Continue with [facility] protocol -Thiamine and folic acid supplementation Coagulopathy secondary to liver disease, improving -Status post oral vitamin K GERD -PPI Tobacco abuse -Cessation -Nicotine replacement hypomagnesemia, resolved Hyponatremia, resolved DVT prophylaxis: SCDs Discussed with: Patient, nursing, Ty from GI, Riana Reeves NP Anticipated discharge: in 1-[address]: home A total of 30 minutes was spent on the care of this complex patient more than 50% of the time was spent in counseling and care coordination.
[2019-07-18 12:38] LABS: Anisocytosis Slight; HCT 20.4 % (34.0-46.0); MCH 41.4 pg (25.0-35.0); MCHC 34.3 g/dL (31.0-37.0); MCV 120.9 fL (80.0-100.0); Macrocytosis Marked; Mean Platelet Volume 10.1; RBC 1.69 m/uL (3.80-5.40); RDW 16.8 % (11.5-15.5); WBC 2.4 k/uL (3.8-10.6)
[2019-07-18 12:39] LABS: Platelet Count 54 k/uL (150-450)
--- NOTE | 2019-07-18 12:41 | P.PN ---
Subjective Progress Note Date: 07/18/19 Principal diagnosis: Rectal bleeding Patient's hemoglobin today 7.0. Platelets 54. Had a small amount of bleeding yesterday. Denies rectal pain currently. Objective - Vital Signs Vital signs: Vital Signs Temp 98.2 F 07/18/19 05:35 Pulse 114 H 07/18/19 05:35 Resp 18 07/18/19 08:00 BP 92/54 07/18/19 05:35 Pulse Ox 95 07/18/19 05:35 Intake & Output 07/17/19 07/18/19 07/18/19 18:59 06:59 18:59 Intake Total 460 Balance 460 Weight 47.627 kg Intake: Oral 460 Other: Voiding Method Toilet # Voids 2 1 - Exam Abdomen: Soft, nontender, nondistended - Labs CBC & Chem 7: 07/18/19 11:52 07/18/19 07:13 Labs: Abnormal Lab Results - Last 24 Hours (Table) 07/18/19 07/18/19 07/18/19 Range/Units 07:13 07:13 07:13 WBC 2.0 L (3.8-10.6) k/uL RBC 1.75 L (3.80-5.40) m/uL Hgb 7.0 L D (11.4-16.0) gm/dL Hct 21.1 L (34.0-46.0) % MCV 120.8 H (80.0-100.0) fL MCH 40.3 H (25.0-35.0) pg RDW 16.9 H (11.5-15.5) % Plt Count 52 L (150-450) k/uL Macrocytosis Marked A PT 13.0 H (9.0-12.0) sec INR 1.3 H (<1.2) Potassium 3.4 L (3.5-5.1) mmol/L Chloride 109 H (98-107) mmol/L BUN <2 L (7-17) mg/dL Creatinine 0.40 L (0.52-1.04) mg/dL Calcium 7.3 L (8.4-10.2) mg/dL Total Bilirubin 1.6 H (0.2-1.3) mg/dL AST 198 H (14-36) U/L Alkaline Phosphatase 248 H (38-126) U/L Total Protein 4.9 L (6.3-8.2) g/dL Albumin 2.1 L (3.5-5.0) g/dL 07/18/19 Range/Units 11:52 WBC 2.4 L (3.8-10.6) k/uL RBC 1.69 L (3.80-5.40) m/uL Hgb 7.0 L (11.4-16.0) gm/dL Hct 20.4 L (34.0-46.0) % MCV 120.9 H (80.0-100.0) fL MCH 41.4 H (25.0-35.0) pg RDW 16.8 H (11.5-15.5) % Plt Count 54 L (150-450) k/uL Macrocytosis Marked A PT (9.0-12.0) sec INR (<1.2) Potassium (3.5-5.1) mmol/L Chloride (98-107) mmol/L BUN (7-17) mg/dL Creatinine (0.52-1.04) mg/dL Calcium (8.4-10.2) mg/dL Total Bilirubin (0.2-1.3) mg/dL AST (14-36) U/L Alkaline Phosphatase (38-126) U/L Total Protein (6.3-8.2) g/dL Albumin (3.5-5.0) g/dL Assessment and Plan (1) GI bleed Narrative/Plan: Hemoglobin 7.0 which is down. Monitor CBC. Dr. Arthur plans hemorrhoidectomy Saturday. Current Visit: Yes Status: Acute Code(s): K92.2 - GASTROINTESTINAL HEMORRHAGE, UNSPECIFIED SNOMED Code(s): 61466700
--- NOTE | 2019-07-18 13:30 | PN ---
PROGRESS NOTE DATE OF SERVICE: July 18, 2019 The patient is a 39-year-old, pleasant white female with history of alcohol abuse, alcoholic liver disease, admitted to the hospital with ongoing rectal bleeding for the last few days' duration. She had an EGD/colonoscopy by Dr. Haywood two months ago that showed external and internal hemorrhoids. She was seen by Dr. Arthur. At this time she is being treated with hydrocortisone suppositories. She had one episode of small bright red blood per rectum today. She had three small episodes yesterday. Overall, she is feeling better. She still complains of lower abdominal pain. No nausea, vomiting. PHYSICAL EXAMINATION: Appears comfortable, no apparent distress. VITAL SIGNS: Stable. Blood pressure is 92/54, pulse rate 114, temperature 98.2. HEENT: Unremarkable. Conjunctivae pink. Sclerae anicteric. Oral cavity no lesions. NECK: No JVD or lymph node enlargement. CHEST: Clear to auscultation. HEART: Regular rate and rhythm. ABDOMEN: Soft. It was nontender, nondistended. Bowel sounds are positive. No organomegaly. EXTREMITIES: No pedal edema. NEUROLOGIC: She is alert and oriented x3. No focal deficits. LABORATORY DATA: WBC 2.6, hemoglobin 8.5, platelets 44,000, INR was 1.3 today. T-bilirubin is 1.6, AST is 198, ALT 22, alkaline phosphatase 248. IMPRESSION: 1. Alcoholic liver disease with mild alcoholic hepatitis. 2. History of alcohol abuse. 3. Mild coagulopathy secondary to underlying liver disease. 4. Intermittent rectal bleeding from internal hemorrhoids, on steroid suppository, feeling better. Surgery is following the patient closely. RECOMMENDATIONS: 1. Advance diet as tolerated. 2. Continue her hydrocortisone suppositories once at bedtime. 3. Abstinence from alcohol. 4. Repeat labs. Will follow with you closely. Thank you for this consultation. MMODL / IJN: [id number] /
[2019-07-18] MEDS: LORazepam 2 MG/ML INJ IV PRN ×4 (14:22→17:57)
[2019-07-18] MEDS ORDERED: SODIUM CHLORIDE 0.9% 500 ML 500 ML IV ONE (16:28)
[2019-07-18 17:14] LABS: Anisocytosis Slight; Basophils % (A) 1 %; Eosinophils # (A) 0.1 k/uL (0-0.7); Eosinophils % (A) 3 %; HCT 23.6 % (34.0-46.0); HGB 7.7 gm/dL (11.4-16.0); Lymphocytes # (A) 0.9 k/uL (1.0-4.8); Lymphocytes % (A) 35 %; MCH 40.1 pg (25.0-35.0); MCHC 32.7 g/dL (31.0-37.0); MCV 122.6 fL (80.0-100.0); Macrocytosis Marked; Mean Platelet Volume 10.9; Monocytes # (A) 0.1 k/uL (0-1.0); Monocytes % (A) 5 %; Neutrophils # (A) 1.3 k/uL (1.3-7.7); Neutrophils % (A) 55 %; RBC 1.92 m/uL (3.80-5.40); RDW 16.8 % (11.5-15.5); WBC 2.4 k/uL (3.8-10.6)
[2019-07-18 17:16] LABS: Platelet Count 53 k/uL (150-450)
[2019-07-18 17:33] LABS: Creatine Kinase <20 U/L (30-135)
[2019-07-18 17:47] LABS: Creatine Kinase MB <0.2 ng/mL (0.0-2.4); Troponin I <0.012 ng/mL (0.000-0.034)
[2019-07-19] MEDS: HYDROcodone/APAP 5-325MG 1 EACH TAB PO PRN ×2 (05:47→11:40)
[2019-07-19] MEDS: FOLIC ACID 1 MG TAB PO SCH (06:43)
[2019-07-19] MEDS: PANTOPRAZOLE 40 MG/10 ML VIAL IVP SCH ×2 (06:43→20:35)
[2019-07-19] MEDS: THIAMINE 100 MG TAB PO SCH ×2 (06:43→16:16)
[2019-07-19] MEDS: HYDROCORTISONE SUPPOSITORY 25 MG SUPP RECTAL SCH ×2 (06:44→20:35)
[2019-07-19 08:24] LABS: INR 1.3 (<1.2); Prothrombin Time 13.1 sec (9.0-12.0)
[2019-07-19 08:31] LABS: Anisocytosis Slight; HCT 21.4 % (34.0-46.0); MCH 39.8 pg (25.0-35.0); MCHC 32.7 g/dL (31.0-37.0); MCV 121.6 fL (80.0-100.0); Macrocytosis Marked; Mean Platelet Volume 9.6; RBC 1.76 m/uL (3.80-5.40); RDW 16.9 % (11.5-15.5); WBC 2.3 k/uL (3.8-10.6)
[2019-07-19 08:36] LABS: ALT 24 U/L (4-34); AST 154 U/L (14-36); African American GFR (CKD) >90 (>60 ml/min/1.73 sqM); Albumin 2.1 g/dL (3.5-5.0); Alkaline Phosphatase 240 U/L (38-126); Anion Gap 2 mmol/L; Blood Urea Nitrogen <2 mg/dL (7-17); Calcium 7.2 mg/dL (8.4-10.2); Carbon Dioxide 26 mmol/L (22-30); Chloride 111 mmol/L (98-107); Glucose 99 mg/dL (74-99); Non-African American GFR(CKD) >90 (>60 ml/min/1.73 sqM); Potassium 3.4 mmol/L (3.5-5.1); Sodium 139 mmol/L (137-145); Total Bilirubin 1.5 mg/dL (0.2-1.3); Total Protein 4.9 g/dL (6.3-8.2)
[2019-07-19 08:37] LABS: Platelet Count 49 k/uL (150-450)
--- NOTE | 2019-07-19 10:09 | PN ---
PROGRESS NOTE DATE OF DICTATION: July 19, 2019 REQUESTING PHYSICIAN: Dr. Riggs The patient is a 39-year-old pleasant white female with history of alcoholic cirrhosis of the liver, admitted to the hospital with intermittent rectal bleeding, possibly from internal hemorrhoids. Surgery has been consulted and Dr. Haines following the patient closely. In the meantime, she states that she had a small amount of bleeding yesterday but none today. She only had one bowel movement so far. She does complain of abdominal pain, decreased appetite. No nausea, vomiting. PHYSICAL EXAMINATION: Appears comfortable no apparent distress. VITAL SIGNS: Stable. Blood pressure is 104/65, pulse rate 116, temperature 98.6. HEENT examination unremarkable. Conjunctivae pink. Sclerae anicteric. Oral cavity no lesions. NECK: No JVD or lymph node enlargement. CHEST: Clear to auscultation. HEART: Regular rate and rhythm. ABDOMEN is slightly tender in the lower abdominal area, but it was nondistended. Bowel sounds are positive. No organomegaly. EXTREMITIES: No pedal edema. SKIN no rashes. NEUROLOGIC: Alert and oriented x3. No focal deficits. LABS: From today WBC 2.3, hemoglobin 7, platelets are 49. INR is 1.3, T-bilirubin 1.5, AST 154, ALT 24, alkaline phosphatase 240, albumin 2.1. IMPRESSION: 1. Alcoholic cirrhosis of the liver with portal hypertension and elevated LFTs. 2. Heavy alcohol abuse. 3. Intermittent rectal bleeding from internal hemorrhoids surgery following the patient closely. 4. Pancytopenia secondary to underlying alcoholic liver disease. 5. Anemia with stable hemoglobin. Last hemoglobin 7 g/dL. RECOMMENDATIONS: 1. Continue with Anusol suppository once at bedtime. 2. Defer to surgery regarding hemorrhoidectomy. 3. Abstinence from alcohol. 4. Regular diet. 5. We will follow with you closely. MMODL / IJN: [id number] /
[2019-07-19] MEDS ORDERED: POTASSIUM CHLORIDE ER 20 MEQ TAB.ER PO STA (14:09)
[2019-07-19] MEDS ORDERED: SODIUM FERRIC GLUCONAT-SUCROSE 125 MG in SODIUM CHLORIDE 0.9% 100 ML IVPB ONE (14:10)
--- NOTE | 2019-07-19 14:11 | P.PN ---
Subjective Progress Note Date: 07/19/19 Principal diagnosis: Bright red blood per rectum Patient is a 39-year-old female with a past medical history of chronic alcoholism, alcoholic liver disease, coagulopathy secondary to liver disease, and internal and external hemorrhoids that presented to the emergency department with chief complaint of bright red blood per rectum and some abdominal pain. In the ER she underwent an extensive evaluation. On arrival she was found to be tachycardic with a pulse rate of 126, laboratory analysis showed a hemoglobin 10.7 which was up from her prior, platelet count of 90, potassium 2.6, INR 1.6, magnesium 1.5, bilirubin 2.4, AST 453, ALT 35, alkaline phosphatase 316, fecal occult blood was positive. She was admitted for further monitoring of her possible GI bleed and correction of her potassium. It was felt that her bleeding was likely hemorrhoidal. Patient has continued to drink after being discharged from the hospital several months ago despite being told to avoid it. She states she's been trying cut back but it is been difficult. She reports multiple family members that of alcoholism. Her abdominal pain is better, Initially the bleeding from her rectum had improved. Her HgB again decreased on the morning of 07/18/19. Due to her persistent tachycardia blood was ordered however she has aware antibody and we are still awaiting blood to be received. Patient seen and examined at bedside. She reports that she is still having blood on wiping. She reports still with crampy lower abdominal pain. She denies any chest pain or shortness of breath. She has persistent headache, nausea, fidgeting, itching symptoms, and inability to sit still. Objective - Vital Signs Vital signs: Vital Signs Temp 96.9 F L 07/19/19 05:00 Pulse 116 H 07/19/19 05:00 Resp 17 07/19/19 07:35 BP 104/65 07/19/19 05:00 Pulse Ox 94 L 07/19/19 05:00 Intake & Output 07/18/19 07/19/19 07/19/19 18:59 06:59 18:59 Intake Total 540 425 Balance 540 425 Intake: Oral 540 425 Other: Voiding Method Toilet Toilet Toilet # Voids 1 1 3 # Bowel Movements 2 1 - Exam General: non toxic, no distress, appears older than stated age Derm: warm, dry Head: atraumatic, normocephalic, symmetric Eyes: EOMI, no lid lag, anicteric sclera Mouth: no lip lesion, mucus membranes moist Cardiovascular: S1S2 reg, no murmur, positive posterior tibial pulse bilateral, Lungs: CTA bilateral, no rhonchi, no rales , no accessory muscle use Abdominal: soft, + tender to palpation LLQ, no guarding, no appreciable organomegaly Ext: no gross muscle atrophy, trace edema, no contractures Neuro: CN II-XI grossly intact, no focal neuro deficits Psych: Alert, oriented, upset crying and tearful - Labs CBC & Chem 7: 07/19/19 07:45 07/19/19 07:45 Labs: Abnormal Lab Results - Last 24 Hours (Table) 07/18/19 07/18/19 07/18/19 Range/Units 11:52 17:00 17:00 WBC 2.4 L (3.8-10.6) k/uL RBC 1.92 L (3.80-5.40) m/uL Hgb 7.0 L 7.7 L (11.4-16.0) gm/dL Hct 23.6 L (34.0-46.0) % MCV 122.6 H (80.0-100.0) fL MCH 40.1 H (25.0-35.0) pg RDW 16.8 H (11.5-15.5) % Plt Count 53 L (150-450) k/uL Lymphocytes # 0.9 L (1.0-4.8) k/uL Macrocytosis Marked A PT (9.0-12.0) sec INR (<1.2) Potassium (3.5-5.1) mmol/L Chloride (98-107) mmol/L BUN (7-17) mg/dL Creatinine (0.52-1.04) mg/dL Calcium (8.4-10.2) mg/dL Total Bilirubin (0.2-1.3) mg/dL AST (14-36) U/L Alkaline Phosphatase (38-126) U/L Total Creatine Kinase <20 L (30-135) U/L Total Protein (6.3-8.2) g/dL Albumin (3.5-5.0) g/dL Crossmatch 07/18/19 07/19/1920 Range/Units 17:00 07:45 07:45 WBC 2.3 L (3.8-10.6) k/uL RBC 1.76 L (3.80-5.40) m/uL Hgb 7.0 L (11.4-16.0) gm/dL Hct 21.4 L (34.0-46.0) % MCV 121.6 H (80.0-100.0) fL MCH 39.8 H (25.0-35.0) pg RDW 16.9 H (11.5-15.5) % Plt Count 49 L (150-450) k/uL Lymphocytes # (1.0-4.8) k/uL Macrocytosis Marked A PT 13.1 H (9.0-12.0) sec INR 1.3 H (<1.2) Potassium (3.5-5.1) mmol/L Chloride (98-107) mmol/L BUN (7-17) mg/dL Creatinine (0.52-1.04) mg/dL Calcium (8.4-10.2) mg/dL Total Bilirubin (0.2-1.3) mg/dL AST (14-36) U/L Alkaline Phosphatase (38-126) U/L Total Creatine Kinase (30-135) U/L Total Protein (6.3-8.2) g/dL Albumin (3.5-5.0) g/dL Crossmatch See Detail 07/19/19 07/19/19 Range/Units 07:45 12:20 WBC (3.8-10.6) k/uL RBC (3.80-5.40) m/uL Hgb (11.4-16.0) gm/dL Hct (34.0-46.0) % MCV (80.0-100.0) fL MCH (25.0-35.0) pg RDW (11.5-15.5) % Plt Count (150-450) k/uL Lymphocytes # (1.0-4.8) k/uL Macrocytosis PT (9.0-12.0) sec INR (<1.2) Potassium 3.4 L (3.5-5.1) mmol/L Chloride 111 H (98-107) mmol/L BUN <2 L (7-17) mg/dL Creatinine 0.39 L (0.52-1.04) mg/dL Calcium 7.2 L (8.4-10.2) mg/dL Total Bilirubin 1.5 H (0.2-1.3) mg/dL AST 154 H (14-36) U/L Alkaline Phosphatase 240 H (38-126) U/L Total Creatine Kinase (30-135) U/L Total Protein 4.9 L (6.3-8.2) g/dL Albumin 2.1 L (3.5-5.0) g/dL Crossmatch See Detail Assessment and Plan Assessment: GI bleed, Due to hemorrhoids with acute blood loss anemia - follow CBC, currently await 1 unti pRBC - soft diet - Anusol - Plan is for intervention on Saturday07/20/19 and then likely home Hypokalemia -Replace and recheck in a.m. Alcoholic hepatitis with probable underlying cirrhosis, improving -Abstain from alcohol -Social work tyler Gonzales scored 25.9, no indication for steroids -GI recommendations appreciated -Hepatitis profile tested 05/13/19 were all negative -Obtained CT abdomen and pelvis 05/12/19 which showed hepatosplenomegaly with significant fatty replacement of the liver. Pancytopenia, due to bone marrow suppression from alcohol - CBC stable - stop alcohol use Alcohol abuse with impending DTs -Continue with [facility] protocol -Thiamine and folic acid supplementation Coagulopathy secondary to liver disease, improving -Status post oral vitamin K GERD -PPI Tobacco abuse -Cessation -Nicotine replacement hypomagnesemia, resolved Hyponatremia, resolved DVT prophylaxis: SCDs Discussed with: Patient, nursing, Anticipated discharge: in 1-[address]: home A total of 30 minutes was spent on the care of this complex patient more than 50% of the time was spent in counseling and care coordination.
[2019-07-19] MEDS: LORazepam 2 MG/ML INJ IV PRN ×4 (14:16→20:40)
--- NOTE | 2019-07-19 14:39 | P.PN ---
Subjective Progress Note Date: 07/19/19 Principal diagnosis: Rectal bleeding Patient doing well today. Only minimal rectal bleeding. Denies pain. Tolerating diet. Objective - Vital Signs Vital signs: Vital Signs Temp 97.9 F 07/19/19 14:06 Pulse 110 H 07/19/19 14:06 Resp 18 07/19/19 14:06 BP 89/58 07/19/19 14:06 Pulse Ox 96 07/19/19 14:06 Intake & Output 07/18/19 07/19/19 07/19/19 18:59 06:59 18:59 Intake Total 540 425 Balance 540 425 Intake: Oral 540 425 Other: Voiding Method Toilet Toilet Toilet # Voids 1 1 3 # Bowel Movements 2 1 - Exam Abdomen: Soft, nontender, nondistended - Labs CBC & Chem 7: 07/19/19 07:45 07/19/19 07:45 Labs: Abnormal Lab Results - Last 24 Hours (Table) 07/18/19 07/18/19 07/18/19 Range/Units 11:52 17:00 17:00 WBC 2.4 L (3.8-10.6) k/uL RBC 1.92 L (3.80-5.40) m/uL Hgb 7.0 L 7.7 L (11.4-16.0) gm/dL Hct 23.6 L (34.0-46.0) % MCV 122.6 H (80.0-100.0) fL MCH 40.1 H (25.0-35.0) pg RDW 16.8 H (11.5-15.5) % Plt Count 53 L (150-450) k/uL Lymphocytes # 0.9 L (1.0-4.8) k/uL Macrocytosis Marked A PT (9.0-12.0) sec INR (<1.2) Potassium (3.5-5.1) mmol/L Chloride (98-107) mmol/L BUN (7-17) mg/dL Creatinine (0.52-1.04) mg/dL Calcium (8.4-10.2) mg/dL Total Bilirubin (0.2-1.3) mg/dL AST (14-36) U/L Alkaline Phosphatase (38-126) U/L Total Creatine Kinase <20 L (30-135) U/L Total Protein (6.3-8.2) g/dL Albumin (3.5-5.0) g/dL Crossmatch 07/18/19 07/19/19 07/19/19 Range/Units 17:00 07:45 07:45 WBC 2.3 L (3.8-10.6) k/uL RBC 1.76 L (3.80-5.40) m/uL Hgb 7.0 L (11.4-16.0) gm/dL Hct 21.4 L (34.0-46.0) % MCV 121.6 H (80.0-100.0) fL MCH 39.8 H (25.0-35.0) pg RDW 16.9 H (11.5-15.5) % Plt Count 49 L (150-450) k/uL Lymphocytes # (1.0-4.8) k/uL Macrocytosis Marked A PT 13.1 H (9.0-12.0) sec INR 1.3 H (<1.2) Potassium (3.5-5.1) mmol/L Chloride (98-107) mmol/L BUN (7-17) mg/dL Creatinine (0.52-1.04) mg/dL Calcium (8.4-10.2) mg/dL Total Bilirubin (0.2-1.3) mg/dL AST (14-36) U/L Alkaline Phosphatase (38-126) U/L Total Creatine Kinase (30-135) U/L Total Protein (6.3-8.2) g/dL Albumin (3.5-5.0) g/dL Crossmatch See Detail 07/19/19 07/19/19 Range/Units 07:45 12:20 WBC (3.8-10.6) k/uL RBC (3.80-5.40) m/uL Hgb (11.4-16.0) gm/dL Hct (34.0-46.0) % MCV (80.0-100.0) fL MCH (25.0-35.0) pg RDW (11.5-15.5) % Plt Count (150-450) k/uL Lymphocytes # (1.0-4.8) k/uL Macrocytosis PT (9.0-12.0) sec INR (<1.2) Potassium 3.4 L (3.5-5.1) mmol/L Chloride 111 H (98-107) mmol/L BUN <2 L (7-17) mg/dL Creatinine 0.39 L (0.52-1.04) mg/dL Calcium 7.2 L (8.4-10.2) mg/dL Total Bilirubin 1.5 H (0.2-1.3) mg/dL AST 154 H (14-36) U/L Alkaline Phosphatase 240 H (38-126) U/L Total Creatine Kinase (30-135) U/L Total Protein 4.9 L (6.3-8.2) g/dL Albumin 2.1 L (3.5-5.0) g/dL Crossmatch See Detail Assessment and Plan (1) GI bleed Narrative/Plan: Patient's bleeding seems to have improved. Platelet levels adequate. We'll schedule for hemorrhoidectomy by Dr. Arthur tomorrow. Current Visit: Yes Status: Acute Code(s): K92.2 - GASTROINTESTINAL HEMORRHAGE, UNSPECIFIED SNOMED Code(s): 62058352
[2019-07-19] MEDS: HYDROcodone/APAP 7.5-325MG 1 EACH TAB PO PRN (16:16)
[2019-07-20] MEDS: THIAMINE 100 MG TAB PO SCH ×2 (08:53→17:26)
[2019-07-20] MEDS: FOLIC ACID 1 MG TAB PO SCH (08:53)
[2019-07-20] MEDS: PANTOPRAZOLE 40 MG/10 ML VIAL IVP SCH ×2 (08:54→22:05)
[2019-07-20] MEDS: HYDROCORTISONE SUPPOSITORY 25 MG SUPP RECTAL SCH ×2 (08:54→22:05)
[2019-07-20 09:46] LABS: Anisocytosis Slight; HCT 24.2 % (34.0-46.0); HGB 7.5 gm/dL (11.4-16.0); Hypochromasia Slight; MCH 38.4 pg (25.0-35.0); MCHC 31.2 g/dL (31.0-37.0); MCV 123.4 fL (80.0-100.0); Macrocytosis Marked; Mean Platelet Volume 10.2; RBC 1.96 m/uL (3.80-5.40); RDW 17.8 % (11.5-15.5); WBC 2.6 k/uL (3.8-10.6)
[2019-07-20 09:47] LABS: Platelet Count 52 k/uL (150-450)
[2019-07-20 10:04] LABS: ALT 21 U/L (4-34); AST 110 U/L (14-36); African American GFR (CKD) >90 (>60 ml/min/1.73 sqM); Albumin 2.2 g/dL (3.5-5.0); Alkaline Phosphatase 231 U/L (38-126); Anion Gap 3 mmol/L; Blood Urea Nitrogen <2 mg/dL (7-17); Calcium 7.5 mg/dL (8.4-10.2); Carbon Dioxide 25 mmol/L (22-30); Chloride 111 mmol/L (98-107); Glucose 88 mg/dL (74-99); Non-African American GFR(CKD) >90 (>60 ml/min/1.73 sqM); Potassium 3.8 mmol/L (3.5-5.1); Sodium 139 mmol/L (137-145); Total Bilirubin 1.6 mg/dL (0.2-1.3); Total Protein 5.1 g/dL (6.3-8.2)
[2019-07-20] MEDS ORDERED: SODIUM CHLORIDE 0.9% 1,000 ML IV ONE ×2 (10:58→14:30)
[2019-07-20 11:12] LABS: % Iron Saturation 25.97 (12.00-45.00); Ferritin 377.4 ng/mL (10.0-291.0)
--- NOTE | 2019-07-20 11:12 | P.PN ---
Subjective Chart was reviewed patient was seen and examined. Patient was admitted with bright red blood per rectum felt to be due to bleeding external hemorrhoids Patient has a history of alcoholic liver cirrhosis currently seems to be compensated. She has chronic anemia and thrombocytopenia that has been stable Today patient has no new complaints did not notice any further bleeding. She does not have any rectal pain or discomfort. She was evaluated by gastroenterology and general surgery and she is planned for hemorrhoidectomy today. Objective - Vital Signs Vital signs: Vital Signs Temp 97.9 F 07/20/19 11:03 Pulse 102 H 07/20/19 11:03 Resp 16 07/20/19 11:03 BP 117/67 07/20/19 11:03 Pulse Ox 92 L 07/20/19 11:03 Intake & Output 07/19/19 07/20/19 07/20/19 18:59 06:59 18:59 Other: Voiding Method Toilet Toilet Toilet # Voids 1 2 # Bowel Movements 1 - Exam Vital Signs: I have reviewed the vital signs. GENERAL: Well-nourished, Well-developed , no apparent distress, cooperative Eyes: PERRL, extraoculry movements intact, clear conjunctiva Head: : Atraumatic external nose and ears, oropharyngeal mucosa is moist without lesions or exudates Neck: Symmetric, trachea midline, No thyromegaly, no masses or neck vain pulsation, no neck rigidity CVS: +S1/S2, No murmurs or gallops. Peripheral pulses 2+ and equal in all extremities. RESP: Unlabored respiratory effort. Clear to auscultation bilaterally. Abdomen: Bowel sounds present in all 4 quadrants, Soft to palpation, Nontender/Nondistended, No hepatosplenomegaly, no hernias or masses, no CVA tnderness Musculoskeletal: Extremities w/o deformity, No cyanosis or clubbing, no joint swelling Skin: Warm, Dry. No rashes or lesions Neuro: figurine maker II-XII grossly intact, motor strenght 5/5 i upper and lower extremities, no clonus, patellar DTRs 2+ and sympetrical Psych: Awake, Alert, & Oriented (AAO) x3 Appropriate mood and affect - Labs CBC & Chem 7: 07/20/19 09:12 07/20/19 09:12 Labs: Abnormal Lab Results - Last 24 Hours (Table) 01/06/2607/19/19 07/20/19 Range/Units 07:45 12:20 09:12 WBC 2.6 L (3.8-10.6) k/uL RBC 1.96 L (3.80-5.40) m/uL Hgb 7.0 L 7.5 L (11.4-16.0) gm/dL Hct 24.2 L (34.0-46.0) % MCV 123.4 H (80.0-100.0) fL MCH 38.4 H (25.0-35.0) pg RDW 17.8 H (11.5-15.5) % Plt Count 52 L (150-450) k/uL Macrocytosis Marked A Chloride (98-107) mmol/L BUN (7-17) mg/dL Creatinine (0.52-1.04) mg/dL Calcium (8.4-10.2) mg/dL Total Bilirubin (0.2-1.3) mg/dL AST (14-36) U/L Alkaline Phosphatase (38-126) U/L Total Protein (6.3-8.2) g/dL Albumin (3.5-5.0) g/dL Crossmatch See Detail 07/20/19 Range/Units 09:12 WBC (3.8-10.6) k/uL RBC (3.80-5.40) m/uL Hgb (11.4-16.0) gm/dL Hct (34.0-46.0) % MCV (80.0-100.0) fL MCH (25.0-35.0) pg RDW (11.5-15.5) % Plt Count (150-450) k/uL Macrocytosis Chloride 111 H (98-107) mmol/L BUN <2 L (7-17) mg/dL Creatinine 0.41 L (0.52-1.04) mg/dL Calcium 7.5 L (8.4-10.2) mg/dL Total Bilirubin 1.6 H (0.2-1.3) mg/dL AST 110 H (14-36) U/L Alkaline Phosphatase 231 H (38-126) U/L Total Protein 5.1 L (6.3-8.2) g/dL Albumin 2.2 L (3.5-5.0) g/dL Crossmatch Assessment and Plan Assessment: 1. Hematochezia [place] to be due to bleeding hemorrhoids Hemoglobin has been stable Gen. surgeon planning for hemorrhoidectomy today No further interventions planned per gastroenterology next 2. Alcoholic liver cirrhosis [place] to be reasonably compensated Continue vitamin supplementation 3. Alcoholism No signs of withdrawals
--- NOTE | 2019-07-20 13:53 | P.PN ---
Progress Note - Text Progress Note Date: 07/20/19 The patient's hemoglobin has remained relatively stable. She has had minimal rectal bleeding over the weekend. On exam her vital signs are stable. Abdomen soft. Hemoglobin 7.5. Patient will undergo hemorrhoidectomy today.
[2019-07-20] MEDS ORDERED: fentaNYL (PF) 50 MCG/ML 2 ML AMP ONE (14:02)
[2019-07-20] MEDS ORDERED: LIDOCAINE 1% INJ 10MG/ML (20 ML MDV) ONE (14:02)
[2019-07-20] MEDS ORDERED: PROPOFOL 10 MG/ML 20 ML VIAL IV ONE (14:02)
[2019-07-20] MEDS ORDERED: SUCCINYLCHOLINE CHLORIDE 100 MG/5 ML SYR IV ONE (14:02)
[2019-07-20] MEDS ORDERED: MIDAZOLAM 2 MG/2 ML VIAL ONE (14:02)
[2019-07-20] MEDS ORDERED: BUPIVACAIN-EPI 0.5%-1:200,000 30 ML VIAL SQ ONE ×2 (14:05)
[2019-07-20] MEDS ORDERED: ceFAZolin 1,000 MG VIAL IVPB ONE (14:41)
--- NOTE | 2019-07-20 15:39 | P.OP ---
Date of Procedure: 07/20/19 Preoperative Diagnosis: Internal and external hemorrhoids Postoperative Diagnosis: Internal and external hemorrhoids Procedure(s) Performed: Internal and external hemorrhoidectomy Anesthesia: SANJAY Surgeon: Winston Arthur Estimated Blood Loss (ml): 10 Pathology: other (Internal andHemorrhoids) Condition: stable Disposition: PACU Description of Procedure: The patient's placed on the operative table in supine position. She received general anesthesia. She was then placed the prone position. Her anus was prepped and draped usual fashion. The patient several large internal/external hemorrhoids. This point the anal retractors placed anus. And then the left lateral hemorrhoidal column was grasped with an Allis clamp and then a column was excised using the Harmonic scissors. An identical fashion the right anterior and right posterior columns were removed. Using 3-0 Vicryl mucosal edges were reapproximated. There is no bleeding seen. The patient top she will was sent to recovery room stable condition.
[2019-07-20] MEDS ORDERED: HYDROmorphone 0.5 MG/0.5 ML SYRINGE IVP ONE (15:49)
[2019-07-20] MEDS: HYDROmorphone 1 MG/ML 1 ML SYRINGE IVP PRN ×3 (17:26→22:22)
[2019-07-21] MEDS: HYDROcodone/APAP 7.5-325MG 1 EACH TAB PO PRN ×3 (00:38→14:45)
[2019-07-21] MEDS: HYDROmorphone 1 MG/ML 1 ML SYRINGE IVP PRN (02:35)
[2019-07-21] MEDS: FOLIC ACID 1 MG TAB PO SCH (07:57)
[2019-07-21] MEDS: PANTOPRAZOLE 40 MG/10 ML VIAL IVP SCH (07:58)
[2019-07-21] MEDS: HYDROCORTISONE SUPPOSITORY 25 MG SUPP RECTAL SCH (07:59)
[2019-07-21] MEDS: THIAMINE 100 MG TAB PO SCH ×2 (08:03→16:30)
[2019-07-21 08:49] LABS: Anisocytosis Moderate; Basophils % (A) 0 %; Eosinophils % (A) 1 %; HCT 26.7 % (34.0-46.0); HGB 8.6 gm/dL (11.4-16.0); Hypochromasia Slight; Lymphocytes # (A) 0.7 k/uL (1.0-4.8); Lymphocytes % (A) 15 %; MCH 37.6 pg (25.0-35.0); MCHC 32.1 g/dL (31.0-37.0); Macrocytosis Marked; Mean Platelet Volume 10.3; Monocytes # (A) 0.4 k/uL (0-1.0); Monocytes % (A) 9 %; Neutrophils # (A) 3.5 k/uL (1.3-7.7); Neutrophils % (A) 74 %; Poikilocytosis Slight; RBC 2.28 m/uL (3.80-5.40); RDW 20.5 % (11.5-15.5); WBC 4.7 k/uL (3.8-10.6)
[2019-07-21 09:13] LABS: MCV 117.2 fL (80.0-100.0); Platelet Count 71 k/uL (150-450)
[2019-07-21 11:25] LABS: Polychromasia Present
--- NOTE | 2019-07-21 14:19 | P.PN ---
Subjective Progress Note Date: 07/21/19 CHIEF COMPLAINT: Hemorrhoids HISTORY OF PRESENT ILLNESS: patient is status post internal and external hemorrhoidectomy with Dr. Arthur. Postop day 1. patient complains of pain at her rectum but states it is tolerable. Hemoglobin remained stable at 8.6. She is tolerating diet. PHYSICAL EXAM: VITAL SIGNS: Reviewed. GENERAL: Well-developed in no acute distress. HEENT: No sclera icterus. Extraocular movements grossly intact. Moist buccal mucosa. Head is atraumatic, normocephalic. ABDOMEN: Soft. Nondistended. Nontender. NEUROLOGIC: Alert and oriented. Cranial nerves II through XII grossly intact. ASSESSMENT: 1. Internal and external hemorrhoids 2. Acute blood loss anemia, secondary to above PLAN: Diet as tolerated Stable for DC home today. Colace BID and metamucil daily recommended to prevent constipation Nurse practitioner note has been reviewed by physician. Signing provider agrees with the documented findings, assessment, and plan of care. Objective - Vital Signs Vital signs: Vital Signs Temp 98.3 F 07/21/19 05:23 Pulse 108 H 07/21/19 05:23 Resp 14 07/21/19 05:23 BP 94/54 07/21/19 05:23 Pulse Ox 93 L 07/21/19 05:23 Intake & Output 07/20/19 07/21/19 07/21/19 18:59 06:59 18:59 Intake Total 500 310 Output Total 15 650 Balance 485 -340 Weight 47.627 kg Intake: IV 500 Blood Product 310 Rc Pheresis As-3 Unit 310 [id number] Output: Post Void Residual 650 Estimated Blood Loss 15 Other: Voiding Method Toilet Toilet Toilet # Voids 1 2 - Labs CBC & Chem 7: 07/21/19 08:03 07/20/19 09:12 Labs: Abnormal Lab Results - Last 24 Hours (Table) 07/19/19 07/21/19 Range/Units 12:20 08:03 RBC 2.28 L (3.80-5.40) m/uL Hgb 8.6 L (11.4-16.0) gm/dL Hct 26.7 L (34.0-46.0) % MCV 117.2 H D (80.0-100.0) fL MCH 37.6 H (25.0-35.0) pg RDW 20.5 H (11.5-15.5) % Plt Count 71 L (150-450) k/uL Lymphocytes # 0.7 L (1.0-4.8) k/uL Macrocytosis Marked A Crossmatch See Detail
[2019-07-21 14:55] VITALS: BP 99/66; PULSE 111; RESP 16; TEMP 98.6
--- NOTE | 2019-07-21 18:36 | P.DS ---
Providers Date of admission: 07/17/19 14:07 Attending physician: Dread Riggs MD Consults: 07/16/19 15:56 Consult Physician Routine Consulting Provider: Winston Arthur Consult Reason/Comments: bleeding hemorrhoids Do you want consulting provider notified?: Yes, Notify in am Primary care physician: Stated None Hospital Course: Date of discharge: 07/21/2019 Consultants: Gastroenterology Gen. surgery Reason for admission: Hematochezia Discharge diagnosis: 1. Hematochezia due to bleeding external and internal hemorrhoids 2. Anemia of blood loss acute on chronic, status post 1 unit of PRBCs villeda sfusion 3. Alcoholic liver cirrhosis 4. Chronic alcoholism Procedures this admission: Hemorrhoidectomy by general surgery History of present illness and Hospital course: Patient is a 39-year-old female with a past medical history of chronic alcoholism, alcoholic liver disease, coagulopathy secondary to liver disease, and internal and external hemorrhoids that presented to the emergency department with chief complaint of bright red blood per rectum and some abdominal pain. In the ER she underwent an extensive evaluation. On arrival she was found to be tachycardic with a pulse rate of 126, laboratory analysis showed a hemoglobin 10.7 which was up from her prior, platelet count of 90, potassium 2.6, INR 1.6, magnesium 1.5, bilirubin 2.4, AST 453, ALT 35, alkaline phosphatase 316, fecal occult blood was positive. She was admitted for further monitoring of her possible GI bleed and correction of her potassium. It was felt that her bleeding was likely hemorrhoidal. Patient has continued to drink after being discharged from the hospital several months ago despite being told to avoid it. She states she's been trying cut back but it is been difficult. She reports multiple family members that of alcoholism. Hospital course: Patient was evaluated by general surgery and gastroenterology. Patient underwent hemorrhoidectomy. She did well postoperatively tolerated diet and pain was well-controlled. He was clear for discharge by general surgery and gastroenterology. Patient received 1 unit of PRBCs Patient was advised to follow-up with her primary care physician in 1-2 days and with general surgery at discharge. Patient is to repeat her CBC in 1 week wish needs to be arranged with her primary care physician or general surgery next Patient was provided with 12 tablets of [place] for pain control. Automated prescription system was reviewed showing the patient last prescription for [place] was in 05/26. Patient was prescribed this medication for acute pain for total of 3 days max. Physical examination on discharge Vital Signs: I have reviewed the vital signs. GENERAL: Well-nourished, Well-developed , no apparent distress, cooperative patient was awake alert oriented 3 Eyes: PERRL, extraoculry movements intact, clear conjunctiva Head: : Atraumatic external nose and ears, oropharyngeal mucosa is moist without lesions or exudates Neck: Symmetric, trachea midline, No thyromegaly, no masses or neck vain pulsation, no neck rigidity CVS: +S1/S2, No murmurs or gallops. Peripheral pulses 2+ and equal in all extremities. RESP: Unlabored respiratory effort. Clear to auscultation bilaterally. Abdomen: Bowel sounds present in all 4 quadrants, Soft to palpation, Nontender/Nondistended, No hepatosplenomegaly, no hernias or masses, no CVA tnderness Musculoskeletal: Extremities w/o deformity, No cyanosis or clubbing, no joint swelling 45 minutes spent on this discharge Patient Condition at Discharge: Good Plan - Discharge Summary Discharge Rx Participant: No New Discharge Prescriptions: New Docusate [Colace] 100 mg PO BID #30 capsule HYDROcodone/APAP 5-325MG [[place] 5-325] 1 tab PO Q6HR PRN 3 Days #12 tab PRN Reason: Severe Pain Continue Dicyclomine [Bentyl] 20 mg PO QID PRN #60 tab PRN Reason: Dyspepsia Pantoprazole [Protonix] 40 mg PO DAILY #30 tablet.dr Fluticasone Nasal [place] [Flonase Nasal [place]] 1 spr EA NOSTRIL DAILY PRN PRN Reason: Allergy Symptoms Cetirizine HCl [Zyrtec] 10 mg PO DAILY Albuterol Sulfate [Ventolin HFA] 1 - 2 puff INHALATION RT-Q6H PRN PRN Reason: Shortness Of Breath Changed Furosemide [Lasix] 10 mg PO DIRECTED PRN #0 PRN Reason: Edema Discontinued Acetaminophen/Diphenhydramine [Tylenol PM 500-25mg] 1 tab PO HS PRN PRN Reason: PAIN/SLEEP HYDROcodone/APAP 7.5-325MG [[place] 7.5-325] 1 tab PO Q6H PRN PRN Reason: Moderate Pain Discharge Medication List Dicyclomine [Bentyl] 20 mg PO QID PRN #60 tab 05/15/19 [Rx] Pantoprazole [Protonix] 40 mg PO DAILY #30 tablet.dr 05/15/19 [Rx] Albuterol Sulfate [Ventolin HFA] 1 - 2 puff INHALATION RT-Q6H PRN 07/16/19 [History] Cetirizine HCl [Zyrtec] 10 mg PO DAILY 07/16/19 [History] Fluticasone Nasal [place] [Flonase Nasal [place]] 1 spr EA NOSTRIL DAILY PRN 07/16/19 [History] Docusate [Colace] 100 mg PO BID #30 capsule 07/21/19 [Rx] Furosemide [Lasix] 10 mg PO DIRECTED PRN #0 07/21/19 [Rx] HYDROcodone/APAP 5-325MG [[place] 5-325] 1 tab PO Q6HR PRN 3 Days #12 tab 07/21/19 [Rx] Follow up Appointment(s)/Referral(s): Cecil Cárdenas MD [REFERRING] - 07/30/19 1:30 pm Winston Arthur MD [STAFF PHYSICIAN] - 07/28/19 2:30 pm Patient Instructions/Handouts: Hemorrhoids (DC), Abuse of Alcohol (DC), Hemorrhoidectomy (DC) Activity/Diet/Wound Care/Special Instructions: Avoid constipation. Take Metamucil or benefiber DAILY Drinks lots of water Discharge Disposition: HOME SELF-CARE
== END 2019-07-21 18:23 | disposition home or self-care (01) | DRG 348 ==
LOC: EC 22:49 → 6NMEDSUR 07-16 02:35 → 5NMEDONC 07-16 14:48 → 6NMEDSUR 07-16 14:49 → OBSVTOIN 07-17 14:07
PROVIDERS: ADMIT Family Medicine; ATTEND Family Medicine
PROC: 30233N1 Transfusion of Nonautologous Red Blood Cells into Peripheral Vein, Percutaneous Approach (ICD-10-PCS; 2019-07-20)
PROC: 06BY0ZC Excision of Hemorrhoidal Plexus, Open Approach (ICD-10-PCS; principal; 2019-07-20 11:55)
DX: K64.4 Residual hemorrhoidal skin tags (principal); D61.818 Other pancytopenia; E87.1 Hypo-osmolality and hyponatremia; D62 Acute posthemorrhagic anemia; K76.6 Portal hypertension; D68.4 Acquired coagulation factor deficiency; F10.231 Alcohol dependence with withdrawal delirium; K64.8 Other hemorrhoids; E88.09 Other disorders of plasma-protein metabolism, not elsewhere classified; R16.2 Hepatomegaly with splenomegaly, not elsewhere classified; K70.10 Alcoholic hepatitis without ascites; D69.59 Other secondary thrombocytopenia; E83.42 Hypomagnesemia; E87.6 Hypokalemia; F17.210 Nicotine dependence, cigarettes, uncomplicated; F32.9 Major depressive disorder, single episode, unspecified; G62.9 Polyneuropathy, unspecified; K21.9 Gastro-esophageal reflux disease without esophagitis; K70.30 Alcoholic cirrhosis of liver without ascites; N83.201 Unspecified ovarian cyst, right side; N83.202 Unspecified ovarian cyst, left side; Z79.899 Other long term (current) drug therapy; Z87.442 Personal history of urinary calculi; Z88.1 Allergy status to other antibiotic agents; Z88.5 Allergy status to narcotic agent; Z71.41 Alcohol abuse counseling and surveillance of alcoholic; Z82.49 Family history of ischemic heart disease and other diseases of the circulatory system; Z83.3 Family history of diabetes mellitus; Z81.1 Family history of alcohol abuse and dependence
CPT/HCPCS: 36415; 80053; 81025; 82272; 82550; 82553; 82728; 83540; 83550; 83735; 84100; 84484; 84703; 85025; 85027; 85610; 85730; 86850; 86860; 86870; 86880; 86885; 86900; 86901; 86902; 86920; 88304; 93005; 96361; 96365; 96366; 96367; 96368; 96372; 96375; 96376; 99285

== ENCOUNTER 2019-08-17 07:56 | Inpatient (IN) | payer OTHER ==
[2019-08-17] MEDS ORDERED: SODIUM CHLORIDE 0.9% 500 ML 500 ML IV STA (08:16)
[2019-08-17] MEDS ORDERED: SODIUM CHLORIDE 0.9% 1,000 ML IV STA (08:16)
[2019-08-17] MEDS ORDERED: PANTOPRAZOLE 40 MG/10 ML VIAL IVP STA (08:17)
--- NOTE | 2019-08-17 08:23 | ED ---
General Adult HPI - General Chief complaint: Dizziness Stated complaint: Lightheaded/Dizzy Time Seen by Provider: 08/17/19 08:09 Source: patient, RN notes reviewed Mode of arrival: ambulatory Limitations: no limitations - History of Present Illness Initial comments: Patient is a pleasant 39-year-old female presenting to the emergency Department with complaints of lightheadedness. Onset of symptoms was a couple of days ago. Patient has not been eating or drinking much at all and states she has no appetite. No dyspnea. Patient does feel generalized fatigue and general weakness. Patient has known alcoholic cirrhosis. Patient states she did not drink this weekend. Patient does have some mild sharp discomfort central chest. - Related Data Home Medications Medication Instructions Recorded Confirmed Albuterol Sulfate [Ventolin HFA] 1 - 2 puff INHALATION RT-Q6H PRN 07/16/19 07/16/19 Cetirizine HCl [Zyrtec] 10 mg PO DAILY 07/16/19 07/16/19 Fluticasone Nasal [place] [Flonase 1 spr EA NOSTRIL DAILY PRN 07/16/19 07/16/19 Nasal [place]] Previous Rx's Medication Instructions Recorded Dicyclomine [Bentyl] 20 mg PO QID PRN #60 tab 05/15/19 Pantoprazole [Protonix] 40 mg PO DAILY #30 tablet. 05/15/19 Docusate [Colace] 100 mg PO BID #30 capsule 07/21/19 Furosemide [Lasix] 10 mg PO DIRECTED PRN #0 07/21/19 HYDROcodone/APAP 5-325MG [[place] 1 tab PO Q6HR PRN 3 Days #12 tab 07/21/19 5-325] Allergies Allergy/AdvReac Type Severity Reaction Status Date / Time cephalexin monohydrate Allergy Rash/Hives Verified 08/17/19 07:57 [From Keflex] codeine Allergy Rash/Hives Verified 08/17/19 07:57 Review of Systems ROS Statement: Those systems with pertinent positive or pertinent negative responses have been documented in the HPI. ROS Other: All systems not noted in ROS Statement are negative. Constitutional: Denies: fever Eyes: Denies: eye pain ENT: Denies: ear pain Respiratory: Denies: cough, dyspnea Cardiovascular: Reports: as per HPI, chest pain Endocrine: Reports: fatigue Gastrointestinal: Denies: abdominal pain Genitourinary: Denies: dysuria Musculoskeletal: Denies: back pain Skin: Reports: change in color Neurological: Reports: as per HPI. Denies: confusion Past Medical History Past Medical History: GERD/Reflux Additional Past Medical History / Comment(s): Hepatic steatosis, ETOH abuse, g astritis, duodenitis, lower GI bleed, colitis, hemorrhoids, bronchitis, R side nephrolithiasis with surgery, bilateral ovarian cysts, neuropathy bilateral hands/legs and tops of both feet, hypokalemia, hypoalbumenemia, pancytopenia. History of Any Multi-Drug Resistant Organisms: None Reported Past Surgical History: Appendectomy, Orthopedic Surgery Additional Past Surgical History / Comment(s): Left knee surgeries-3 arthro scopic and one open, EGDs, colonoscopies, R sided lithotripsy. Past Anesthesia/Blood Transfusion Reactions: No Reported Reaction Additional Past Anesthesia/Blood Transfusion Reaction / Comment(s): Pt has received blood in past without reaction. Past Psychological History: Depression Smoking Status: Current every day smoker Past Alcohol Use History: Daily Past Drug Use History: Marijuana - Past Family History Mother Family Medical History: Diabetes Mellitus Additional Family Medical History / Comment(s): Borderline HTN Brother(s) Family Medical History: Diabetes Mellitus Father Family Medical History: Hypertension Additional Family Medical History / Comment(s): BOARDERLINE DM General Exam Limitations: no limitations General appearance: alert, in no apparent distress Head exam: Present: normocephalic Eye exam: Present: PERRL ENT exam: Present: normal oropharynx Neck exam: Present: normal inspection Respiratory exam: Present: normal lung sounds bilaterally Cardiovascular Exam: Present: tachycardia Expanded Peripheral pulses: 2+: Radial (R), Radial (L), Posterior Tibialis (R), Posterior Tibialis (L) GI/Abdominal exam: Present: soft. Absent: distended, tenderness Extremities exam: Present: normal inspection Neurological exam: Present: alert Psychiatric exam: Present: normal affect, normal mood Skin exam: Present: other (Jaundice) Course Vital Signs 08/17/19 08/17/19 08/17/19 07:59 08:30 09:00 Temperature 97.9 F Pulse Rate 140 H 105 H 105 H Respiratory 18 17 17 Rate Blood Pressure 100/55 108/56 98/48 O2 Sat by Pulse 98 99 95 Oximetry 08/17/19 09:30 Temperature Pulse Rate 111 H Respiratory 17 Rate Blood Pressure 107/52 O2 Sat by Pulse 97 Oximetry EKG Findings - EKG Comments: EKG Findings:: Sinus tachycardia 121. MO 114. QRS 80. QT 376. QTc 533. Normal axis. Normal QRS. Diffuse T-wave inversion. Medical Decision Making - Medical Decision Making Reevaluated and updated. Case discussed with Dr. Fisher, who will admit covering for hospital call. - Lab Data Result diagrams: 08/17/19 08:30 08/17/19 08:30 Lab Results 08/17/19 08/17/19 08/17/19 Range/Units 08:30 08:30 08:30 WBC 3.8 (3.8-10.6) k/uL RBC 2.06 L (3.80-5.40) m/uL Hgb 7.6 L (11.4-16.0) gm/dL Hct 23.7 L (34.0-46.0) % MCV 115.3 H (80.0-100.0) fL MCH 36.8 H (25.0-35.0) pg MCHC 31.9 (31.0-37.0) g/dL RDW 19.5 H (11.5-15.5) % Plt Count 101 L (150-450) k/uL Neutrophils % 83 % Lymphocytes % 10 % Monocytes % 3 % Eosinophils % 3 % Basophils % 1 % Neutrophils # 3.1 (1.3-7.7) k/uL Lymphocytes # 0.4 L (1.0-4.8) k/uL Monocytes # 0.1 (0-1.0) k/uL Eosinophils # 0.1 (0-0.7) k/uL Basophils # 0.0 (0-0.2) k/uL Manual Slide Review Performed Hypochromasia Slight Poikilocytosis (manual Present Anisocytosis Slight Macrocytosis Marked A PT (9.0-12.0) sec INR (<1.2) APTT (22.0-30.0) sec D-Dimer (<0.60) mg/L FEU Sodium 129 L (137-145) mmol/L Potassium 2.5 L* (3.5-5.1) mmol/L Chloride 83 L (98-107) mmol/L Carbon Dioxide 33 H (22-30) mmol/L Anion Gap 13 mmol/L BUN 7 (7-17) mg/dL Creatinine 0.41 L (0.52-1.04) mg/dL Est GFR (CKD-EPI)AfAm >90 (>60 ml/min/1.73 sqM) Est GFR (CKD-EPI)NonAf >90 (>60 ml/min/1.73 sqM) Glucose 115 H (74-99) mg/dL Plasma Lactic Acid Paulino 3.6 H* (0.7-2.0) mmol/L Calcium 8.1 L (8.4-10.2) mg/dL Phosphorus 1.2 L (2.5-4.5) mg/dL Magnesium 2.0 (1.6-2.3) mg/dL Total Bilirubin 6.7 H (0.2-1.3) mg/dL AST 96 H (14-36) U/L ALT 14 (4-34) U/L Alkaline Phosphatase 274 H (38-126) U/L Ammonia 58 H (<30) umol/L Creatine Kinase 21 L (30-135) U/L Troponin I (0.000-0.034) ng/mL Total Protein 7.1 (6.3-8.2) g/dL Albumin 3.1 L (3.5-5.0) g/dL TSH 1.520 (0.465-4.680) mIU/L Urine Color Urine Appearance (Clear) Urine pH (5.0-8.0) Ur Specific [place] (1.001-1.035) Urine Protein (Negative) Urine Glucose (UA) (Negative) Urine Ketones (Negative) Urine Blood (Negative) Urine Nitrite (Negative) Urine Bilirubin (Negative) Urine Urobilinogen (<2.0) mg/dL Ur Leukocyte Esterase (Negative) Urine RBC (0-5) /hpf Urine WBC (0-5) /hpf Ur Squamous Epith Cells (0-4) /hpf Amorphous Sediment (None) /hpf Urine Bacteria (None) /hpf Hyaline Casts (0-2) /lpf Urine Mucus (None) /hpf 08/17/19 08/17/19 08/17/19 Range/Units 08:30 08:30 09:20 WBC (3.8-10.6) k/uL RBC (3.80-5.40) m/uL Hgb (11.4-16.0) gm/dL Hct (34.0-46.0) % MCV (80.0-100.0) fL MCH (25.0-35.0) pg MCHC (31.0-37.0) g/dL RDW (11.5-15.5) % Plt Count (150-450) k/uL Neutrophils % % Lymphocytes % % Monocytes % % Eosinophils % % Basophils % % Neutrophils # (1.3-7.7) k/uL Lymphocytes # (1.0-4.8) k/uL Monocytes # (0-1.0) k/uL Eosinophils # (0-0.7) k/uL Basophils # (0-0.2) k/uL Manual Slide Review Hypochromasia Poikilocytosis (manual Anisocytosis Macrocytosis PT 16.4 H (9.0-12.0) sec INR 1.7 H (<1.2) APTT 31.2 H (22.0-30.0) sec D-Dimer 0.69 H (<0.60) mg/L FEU Sodium (137-145) mmol/L Potassium (3.5-5.1) mmol/L Chloride (98-107) mmol/L Carbon Dioxide (22-30) mmol/L Anion Gap mmol/L BUN (7-17) mg/dL Creatinine (0.52-1.04) mg/dL Est GFR (CKD-EPI)AfAm (>60 ml/min/1.73 sqM) Est GFR (CKD-EPI)NonAf (>60 ml/min/1.73 sqM) Glucose (74-99) mg/dL Plasma Lactic Acid Paul[place] (0.7-2.0) mmol/L Calcium (8.4-10.2) mg/dL Phosphorus (2.5-4.5) mg/dL Magnesium (1.6-2.3) mg/dL Total Bilirubin (0.2-1.3) mg/dL AST (14-36) U/L ALT (4-34) U/L Alkaline Phosphatase (38-126) U/L Ammonia (<30) umol/L Creatine Kinase (30-135) U/L Troponin I <0.012 (0.000-0.034) ng/mL Total Protein (6.3-8.2) g/dL Albumin (3.5-5.0) g/dL TSH (0.465-4.680) mIU/L Urine Color Dark Brown Urine Appearance Cloudy H (Clear) Urine pH 6.0 (5.0-8.0) Ur Specific [place] 1.023 (1.001-1.035) Urine Protein 1+ H (Negative) Urine Glucose (UA) Negative (Negative) Urine Ketones Trace H (Negative) Urine Blood Negative (Negative) Urine Nitrite Negative (Negative) Urine Bilirubin 2+ H (Negative) Urine Urobilinogen 6.0 (<2.0) mg/dL Ur Leukocyte Esterase Moderate H (Negative) Urine RBC 1 (0-5) /hpf Urine WBC 7 H (0-5) /hpf Ur Squamous Epith Cells 2 (0-4) /hpf Amorphous Sediment Rare H (None) /hpf Urine Bacteria Rare H (None) /hpf Hyaline Casts 4 H (0-2) /lpf Urine Mucus Few H (None) /hpf - Radiology Data Radiology results: image reviewed (Chest x-ray shows no acute process) Critical Care Time Critical Care Time: Yes Total Critical Care Time: 31 Disposition Clinical Impression: Liver failure, Hypokalemia, Anemia, Dehydration Disposition: ADMITTED IP TO THIS [facility] Condition: Serious Is patient prescribed a controlled substance at d/c from ED?: No Referrals: None,Stated [Primary Care Provider] - 1-2 days Decision Time: 10:25
[2019-08-17 09:06] LABS: ALT 14 U/L (4-34); AST 96 U/L (14-36); African American GFR (CKD) >90 (>60 ml/min/1.73 sqM); Albumin 3.1 g/dL (3.5-5.0); Alkaline Phosphatase 274 U/L (38-126); Anion Gap 13 mmol/L; Blood Urea Nitrogen 7 mg/dL (7-17); Calcium 8.1 mg/dL (8.4-10.2); Carbon Dioxide 33 mmol/L (22-30); Chloride 83 mmol/L (98-107); Creatine Kinase 21 U/L (30-135); Glucose 115 mg/dL (74-99); Non-African American GFR(CKD) >90 (>60 ml/min/1.73 sqM); Phosphorus 1.2 mg/dL (2.5-4.5); Sodium 129 mmol/L (137-145); Total Bilirubin 6.7 mg/dL (0.2-1.3); Total Protein 7.1 g/dL (6.3-8.2)
[2019-08-17 09:10] LABS: Anisocytosis Slight; Basophils % (A) 1 %; Eosinophils # (A) 0.1 k/uL (0-0.7); Eosinophils % (A) 3 %; HCT 23.7 % (34.0-46.0); HGB 7.6 gm/dL (11.4-16.0); Hypochromasia Slight; Lymphocytes # (A) 0.4 k/uL (1.0-4.8); Lymphocytes % (A) 10 %; MCH 36.8 pg (25.0-35.0); MCHC 31.9 g/dL (31.0-37.0); MCV 115.3 fL (80.0-100.0); Macrocytosis Marked; Mean Platelet Volume 9.6; Monocytes # (A) 0.1 k/uL (0-1.0); Monocytes % (A) 3 %; Neutrophils # (A) 3.1 k/uL (1.3-7.7); Neutrophils % (A) 83 %; Platelet Count 101 k/uL (150-450); RBC 2.06 m/uL (3.80-5.40); RDW 19.5 % (11.5-15.5); WBC 3.8 k/uL (3.8-10.6)
[2019-08-17 09:11] LABS: INR 1.7 (<1.2); Partial Thromboplastin Time 31.2 sec (22.0-30.0); Prothrombin Time 16.4 sec (9.0-12.0)
[2019-08-17 09:17] LABS: Potassium 2.5 mmol/L (3.5-5.1)
[2019-08-17 09:29] LABS: Lactic Acid, Venous 3.6 mmol/L (0.7-2.0)
[2019-08-17 09:42] LABS: Poikilocytosis (M) Present
--- NOTE | 2019-08-17 09:44 | XR ---
EXAMINATION TYPE: XR chest 2V DATE OF EXAM: 08/17/2019 COMPARISON: 05/22/2019 HISTORY: Weakness TECHNIQUE: Frontal and lateral views of the chest are obtained. FINDINGS: Resolution the previously seen bilateral pleural effusions. There is no focal air space op acity, pleural effusion, or pneumothorax seen. The cardiac silhouette size is within normal limits. The osseous structures are intact. IMPRESSION: No acute cardiopulmonary process. Resolved bilateral pleural effusions.
[2019-08-17 09:46] LABS: D-Dimer 0.69 mg/L FEU (<0.60)
[2019-08-17 09:50] LABS: Amorphous Sediment,Urine Rare /hpf; Appearance,Urine Cloudy (Clear); Bacteria,Urine Rare /hpf; Bilirubin,Urine 2+ (Negative); Blood,Urine Negative (Negative); Color,Urine Dark Brown; Glucose,Urine (UA) Negative (Negative); Hyaline Casts,Urine 4 /lpf (0-2); Ketones,Urine Trace (Negative); Leukocyte Esterase,Urine Moderate (Negative); Mucus,Urine Few /hpf; Nitrite,Urine Negative (Negative); Protein,Urine 1+ (Negative); RBC,Urine 1 /hpf (0-5); Specific Gravity,Urine 1.023 (1.001-1.035); Squamous Epithelial Cell,Urine 2 /hpf (0-4); WBC,Urine 7 /hpf (0-5)
[2019-08-17] MEDS ORDERED: POTASSIUM CHLORIDE 20 MEQ in WATER FOR INJECTION 1 100ML.BAG IVPB STA (10:22)
[2019-08-17] MEDS ORDERED: NALOXONE 0.4 MG/ML 1 ML VIAL IV PRN (10:25)
[2019-08-17] MEDS: POTAS-SOD-PHOS 278-164-250 MG 1 EACH PACKET PO SCH ×3 (10:57→23:09)
--- NOTE | 2019-08-17 11:38 | CT ---
CT CHEST FOR PULMONARY EMBOLISM. EXAMINATION TYPE: CT angio chest DATE OF EXAM: 08/17/2019 INDICATION: Chest pain, dizziness, light headedness CT DLP: 170.2 mGycm, Automated exposure control for dose reduction was used. CONTRAST: Patient injected with 100 ml mL of Isovue 370. COMPARISON: None TECHNIQUE: CT of the chest is performed on a spiral scan at 2 mm thick sections. Study is performed with intravenous contrast timed for evaluation for pulmonary embolism. This will limit additional po rtions of the evaluation. 3-D MIP images reconstructed by the technologist are reviewed on the compu ter in the coronal and sagittal planes. FINDINGS: No persistent filling defects are evident to suggest an acute pulmonary embolism. No mediastinal or hilar adenopathy enlarged by CT criteria is evident. The ascending aorta diameter at the level of the main pulmonary artery is 2.3 cm. The main pulmonary artery diameter at the bifur cation is 2.2 cm. Lung windows are clear. Limited CT section through the upper abdomen. There is moderate fatty infiltration to the visualized portions of the liver. Hepatosplenomegaly is not excluded on this limited upper abdomen imaging. IMPRESSIONS: 1. No acute pulmonary embolism
[2019-08-17] MEDS ORDERED: Potassium Replacement Protocol 1 EACH MISC MISCELLANE PRN (16:23)
[2019-08-17] MEDS: POTASSIUM CHLORIDE ER 20 MEQ TAB.ER PO SCH ×4 (17:09→23:21)
[2019-08-17] MEDS ORDERED: THIAMINE 100 MG/ML 2 ML VIAL IM STA (19:00)
[2019-08-17] MEDS ORDERED: LORazepam 2 MG/ML INJ IV PRN ×2 (19:00)
[2019-08-17] MEDS: SODIUM CHLORIDE 0.9% 1,000 ML IV SCH (20:02)
[2019-08-17] MEDS: KETOROLAC 30 MG/ML 1 ML VIAL IVP PRN (20:10)
[2019-08-17] MEDS: LORazepam 2 MG/ML INJ IV PRN (22:11)
[2019-08-17 23:00] LABS: Potassium 3.1 mmol/L (3.5-5.1)
[2019-08-17 23:01] LABS: African American GFR (CKD) >90 (>60 ml/min/1.73 sqM); Anion Gap 8 mmol/L; Blood Urea Nitrogen 4 mg/dL (7-17); Calcium 7.7 mg/dL (8.4-10.2); Carbon Dioxide 31 mmol/L (22-30); Chloride 91 mmol/L (98-107); Glucose 114 mg/dL (74-99); Non-African American GFR(CKD) >90 (>60 ml/min/1.73 sqM); Sodium 130 mmol/L (137-145)
[2019-08-18] MEDS: POTASSIUM CHLORIDE ER 20 MEQ TAB.ER PO SCH ×3 (01:03→11:12)
--- NOTE | 2019-08-18 05:16 | HP ---
HISTORY AND PHYSICAL CHIEF COMPLAINT: Weakness and jaundice. HISTORY OF PRESENT ILLNESS: This is another admission for this 39-year-old white female. She has been a heavy drinker for some time. Two weeks ago she had a hemorrhoid surgery done. She is drinking about a fifth a day or more and she was noticed to be jaundice by her boyfriend. She has a 12-year-old daughter and she realized that she is getting into serious trouble with her drinking and came to the emergency room. There she had some chemistry abnormalities including white count of only 3.8 and hemoglobin of 7.6. Platelets were 101,000. Sodium was low at 129, potassium is only 2.5, chloride is 83 and CO2 is 33. INR was 1.7. Bilirubin was 6.7 with AST 96 and ALT of 14, but alkaline phosphatase was 274. REVIEW OF SYSTEMS: She denied any headaches. She does go into DTs every morning until she drinks. She has had no diplopia, blackouts, confusion, head injuries, chest pain, shortness of breath, history of heart disease, palpitations, arrhythmia, hematemesis, melena, hematochezia, jaundice, renal failure, dysuria, frequency, urgency, diabetes, etc. Past medical history, family history and personal and social histories are unremarkable otherwise. She takes Tylenol occasionally. She is allergic to CODEINE and KEFLEX. Two weeks ago, she had external hemorrhoidectomy. She smokes a pack cigarettes a day and has been drinking a fifth of liquor a day. PHYSICAL EXAMINATION: Temperature 97.9, pulse is 140, blood pressure is 100/55, and respirations are 18. GENERAL: She appeared to be pale and chronically ill. She was slightly jaundice. Head, ears, eyes, nose, mouth, and throat were otherwise normal. Chest is clear to auscultation. Cardiac exam demonstrated sinus tachycardia. No murmurs or extra sounds. The abdomen is slightly protuberant and soft with hepatomegaly and ascites. Bowel sounds are present. Extremities are normal and there is no edema. Neurologically, she is intact. She is admitted to the hospital with diagnoses: 1. Chronic alcoholism. 2. Delirium tremens. 3. Alcoholic hepatitis. 4. Cirrhosis. 5. Pancytopenia. 6. Hyponatremia. 7. Hypokalemia. PLAN: 1. Bed rest. 2. IV fluids. 3. Restore electrolytes. 4. Monitor liver function studies. MMODL / IJN: [id number] /
[2019-08-18] MEDS: THIAMINE 100 MG TAB PO SCH ×2 (06:37→16:52)
[2019-08-18 07:00] LABS: ALT 12 U/L (4-34); AST 102 U/L (14-36); African American GFR (CKD) >90 (>60 ml/min/1.73 sqM); Albumin 2.5 g/dL (3.5-5.0); Alkaline Phosphatase 270 U/L (38-126); Anion Gap 8 mmol/L; Blood Urea Nitrogen 4 mg/dL (7-17); Calcium 7.9 mg/dL (8.4-10.2); Carbon Dioxide 29 mmol/L (22-30); Chloride 95 mmol/L (98-107); Glucose 92 mg/dL (74-99); Magnesium 1.9 mg/dL (1.6-2.3); Non-African American GFR(CKD) >90 (>60 ml/min/1.73 sqM); Potassium 3.4 mmol/L (3.5-5.1); Sodium 132 mmol/L (137-145); Total Bilirubin 5.1 mg/dL (0.2-1.3); Total Protein 5.9 g/dL (6.3-8.2)
[2019-08-18 07:03] LABS: Anisocytosis Slight; Basophils % (A) 1 %; Eosinophils # (A) 0.1 k/uL (0-0.7); Eosinophils % (A) 4 %; Hypochromasia Slight; Lymphocytes # (A) 0.6 k/uL (1.0-4.8); Lymphocytes % (A) 19 %; MCH 36.6 pg (25.0-35.0); MCHC 30.9 g/dL (31.0-37.0); MCV 118.5 fL (80.0-100.0); Macrocytosis Marked; Mean Platelet Volume 9.3; Monocytes # (A) 0.2 k/uL (0-1.0); Monocytes % (A) 5 %; Neutrophils # (A) 2.1 k/uL (1.3-7.7); Neutrophils % (A) 69 %; RBC 1.66 m/uL (3.80-5.40); RDW 19.2 % (11.5-15.5); WBC 3.1 k/uL (3.8-10.6)
[2019-08-18 07:10] LABS: Phosphorus 0.6 mg/dL (2.5-4.5)
[2019-08-18 07:16] LABS: HGB 6.1 gm/dL (11.4-16.0)
[2019-08-18 07:17] LABS: HCT 19.7 % (34.0-46.0)
[2019-08-18] MEDS ORDERED: Potassium Replacement Protocol 1 EACH MISC MISCELLANE PRN (08:03)
[2019-08-18] MEDS: POTAS-SOD-PHOS 278-164-250 MG 1 EACH PACKET PO SCH ×3 (08:16→22:18)
[2019-08-18] MEDS: LORazepam 2 MG/ML INJ IV PRN ×2 (08:21→18:55)
[2019-08-18 08:28] LABS: Platelet Count 89 k/uL (150-450)
[2019-08-18 08:32] LABS: Target Cells Present
[2019-08-18 08:33] LABS: Poikilocytosis (M) Present
[2019-08-18] MEDS ORDERED: PANTOPRAZOLE 40 MG/10 ML VIAL IV SCH (09:00)
[2019-08-18] MEDS: SODIUM CHLORIDE 0.9% 1,000 ML IV SCH (11:13)
[2019-08-18 11:51] LABS: INR 1.6 (<1.2)
[2019-08-18 15:22] LABS: Potassium 4.4 mmol/L (3.5-5.1)
[2019-08-18] MEDS: KETOROLAC 30 MG/ML 1 ML VIAL IVP PRN ×2 (16:52→22:18)
[2019-08-18] MEDS: LACTULOSE 20 GM/30 ML CUP PO SCH ×2 (18:47→22:18)
--- NOTE | 2019-08-18 19:39 | PN ---
PROGRESS NOTE CHIEF COMPLAINT: Anemia, cirrhosis, alcoholism. HISTORY OF PRESENT ILLNESS: This lady's hemoglobin has dropped and she will be transfused one unit of packed cells. She remains very weak and lethargic. Electrolytes are improving. She has had no vomiting. PHYSICAL EXAMINATION: Her vital signs are normal. She is pale and jaundiced. Head, ears, eyes, nose, mouth and throat are normal. The chest is clear. Cardiac exam is normal except for tachycardia. The abdomen reveals a small amount of ascites and hepatomegaly. Extremities are normal. IMPRESSION: 1. Chronic alcoholism. 2. Cirrhosis. 3. Anemia. 4. Pancytopenia. 5. Hepatic failure. PLAN: 1. Continue with IV fluids and continue to monitor her liver function. 2. Start Cephulac or lactulose. 3. Start vitamin B. MMODL / IJN: [id number] /
[2019-08-19 00:17] LABS: Alpha Fetoprotein, Tumor Mkr 5.5 ng/mL (0.0-7.9)
[2019-08-19 01:15] LABS: % Iron Saturation 63.45 (12.00-45.00); Ferritin 978.9 ng/mL (10.0-291.0)
--- NOTE | 2019-08-19 05:46 | P.CONS ---
History of Present Illness - Reason for Consult Consult date: 08/18/19 Anemia, elevated liver enzymes, alcoholic cirrhosis Requesting physician: Alvino Fisher - Chief Complaint Weakness - History of Present Illness 39-year-old female with a medical history significant for alcohol abuse, alcohol liver disease, hemorrhoids, hepatomegaly and neuropathy who presented to the hospital with complaints of weakness and dizziness. The patient reports nausea and vomiting which was nonbloody and occurring approximately 5 days ago. This resolved and the patient subsequently developed dizziness and lightheadedness which progressed and prompted her to come to the hospital. She also reports abdominal pain in the right upper quadrant of her abdomen which she describes as sharp in nature and without radiation. Previously she was seen for h emorrhoidectomy approximately one month ago. Currently she denies any change in bowel habits. She was still intermittently sees a small amount of blood per rectum. But she denies any diarrhea, constipation, melena or large amounts of bleeding. She has undergone endoscopic evaluation multiple times in the past with recent EGD and colonoscopy of 05/13/2019 with findings of internal and external hemorrhoids as well as gastritis. Prior to that she had had endoscopic evaluation in 2017. Patient's laboratory evaluation on presentation significant for INR 1.6, total bilirubin 5.1, alkaline phosphatase 270, AST 102, ALT 12, WBC 3, hemoglobin 6.1, platelet count 89,000. The patient has a long-standing history of alcohol abuse and continues to actively drink alcohol. Review of Systems REVIEW OF SYSTEMS: CONSTITUTIONAL: Denies any fevers, chills, weight change but she does report fatigue and generalized weakness. CARDIOVASCULAR: Denies any chest pain, palpitations high or low blood pressures RESPIRATORY: Denies any shortness of breath, hemoptysis or cough. GENITOURINARY: No dysuria or hematuria. MUSCULOSKELETAL: No focal weakness reported. SKIN: Denies any new rashes or lesions, or pallor but has noted some jaundice. PSYCHIATRIC: Denies any depression or anxiety, but she does have a known history of alcohol abuse. NEUROLOGY: Denies headache, denies any new focal deficits. EARS/NOSE/THROAT: No recent hearing change, congestion, nasal discharge or sore throat. EYES: No pain in eyes, discharge or change in vision. GASTROINTESTINAL: As per HPI. Past Medical History Past Medical History: GERD/Reflux Additional Past Medical History / Comment(s): Hepatic steatosis, ETOH abuse, gastritis, duodenitis, lower GI bleed, colitis, hemorrhoids, bronchitis, R side nephrolithiasis with surgery, bilateral ovarian cysts, neuropathy bilateral hands/legs and tops of both feet, hypokalemia, hypoalbumenemia, pancytopenia. History of Any Multi-Drug Resistant Organisms: None Reported Past Surgical History: Appendectomy, Orthopedic Surgery Additional Past Surgical History / Comment(s): Left knee surgeries-3 arthroscopic and one open, EGDs, colonoscopies, R sided lithotripsy. Past Anesthesia/Blood Transfusion Reactions: No Reported Reaction Additional Past Anesthesia/Blood Transfusion Reaction / Comm: Pt has received blood in past without reaction. Smoking Status: Current every day smoker - Past Family History Mother Family Medical History: Diabetes Mellitus Additional Family Medical History / Comment(s): Borderline HTN Brother(s) Family Medical History: Diabetes Mellitus Father Family Medical History: Hypertension Additional Family Medical History / Comment(s): BOARDERLINE DM Medications and Allergies Home Medications Medication Instructions Recorded Confirmed Type Albuterol Sulfate [Ventolin HFA] 2 puff INHALATION RT-Q4H PRN 07/16/19 08/17/19 History Fluticasone Nasal [place] [Flonase 1 spray EA NOSTRIL BID PRN 07/16/19 08/17/19 History Nasal [place]] Acetaminophen Tab [Tylenol Tab] 500 - 1,000 mg PO Q6H PRN 08/17/19 08/17/19 History Acetaminophen/Diphenhydramine 2 tab PO HS 08/17/19 08/17/19 History [Tylenol PM 500-25mg] Ranitidine HCl [Zantac] 75 mg PO BID PRN 08/17/19 08/17/19 History Allergies Allergy/AdvReac Type Severity Reaction Status Date / Time cephalexin monohydrate Allergy Rash/Hives Verified 08/17/19 10:57 [From Keflex] codeine Allergy Rash/Hives Verified 08/17/19 10:57 Physical Exam Vitals: Vital Signs Temp Pulse Resp BP Pulse Ox 08/18/19 12:00 99.6 F 128 H 18 111/62 96 08/18/19 08:00 98.8 F 137 H 14 106/46 93 L 08/18/19 04:00 98.4 F 115 H 16 91/54 97 08/18/19 03:43 127 H 18 08/18/19 00:00 98.2 F 127 H 16 95/55 93 L 08/17/19 20:00 99.5 F 119 H 16 99/64 93 L 08/17/19 18:46 99.1 F 123 H 18 114/66 95 08/17/19 16:10 124 H 18 116/61 98 Intake and Output 08/17/19 08/18/19 08/18/19 22:59 06:59 14:59 Intake Total 420 240 Balance 420 240 Intake: IV 420 Sodium Chloride 0.9% 1, 420 000 ml @ 60 mls/hr IV . [id number] [facility] Rx#:[id number] Oral 240 Other: Voiding Method Toilet Toilet # Voids 1 1 Weight 47.8 kg 47.8 kg On physical examination, patient appears comfortable in no apparent distress. HEAD: Normocephalic, atraumatic. EYES: Scleral icterus. No conjunctival injection. MOUTH: No lesions, tongue midline. NECK: Trachea midline, no gross abnormalities. CHEST: Clear to auscultation with no wheezing or rhonchi appreciated. HEART: Regular rate and rhythm. ABDOMEN: Sof. Bowel sounds are positive. No organomegaly. No guarding or rigidity. EXTREMITIES: No pedal edema. SKIN: No rashes, jaundice. NEUROLOGIC: Alert and oriented x3. No focal deficits. Results CBC & Chem 7: 08/18/19 05:34 08/18/19 14:51 Labs: Abnormal Lab Results - Last 24 Hours (Table) 08/17/19 08/17/19 08/17/19 Range/Units 12:43 14:02 22:07 WBC (3.8-10.6) k/uL RBC (3.80-5.40) m/uL Hgb (11.4-16.0) gm/dL Hct (34.0-46.0) % MCV (80.0-100.0) fL MCH (25.0-35.0) pg MCHC (31.0-37.0) g/dL RDW (11.5-15.5) % Plt Count (150-450) k/uL Lymphocytes # (1.0-4.8) k/uL Macrocytosis PT (9.0-12.0) sec INR (<1.2) Sodium 130 L (137-145) mmol/L Potassium 2.6 L* 3.1 L (3.5-5.1) mmol/L Chloride 91 L (98-107) mmol/L Carbon Dioxide 31 H (22-30) mmol/L BUN 4 L (7-17) mg/dL Creatinine 0.42 L (0.52-1.04) mg/dL Glucose 114 H (74-99) mg/dL Plasma Lactic Acid Paulino 2.9 H* (0.7-2.0) mmol/L Calcium 7.7 L (8.4-10.2) mg/dL Phosphorus (2.5-4.5) mg/dL Total Bilirubin (0.2-1.3) mg/dL AST (14-36) U/L Alkaline Phosphatase (38-126) U/L Ammonia (<30) umol/L Total Protein (6.3-8.2) g/dL Albumin (3.5-5.0) g/dL Crossmatch 08/17/19 08/18/19 08/18/19 Range/Units 22:07 05:34 05:34 WBC 3.1 L (3.8-10.6) k/uL RBC 1.66 L (3.80-5.40) m/uL Hgb 6.1 L* D (11.4-16.0) gm/dL Hct 19.7 L* (34.0-46.0) % MCV 118.5 H (80.0-100.0) fL MCH 36.6 H (25.0-35.0) pg MCHC 30.9 L (31.0-37.0) g/dL RDW 19.2 H (11.5-15.5) % Plt Count 89 L (150-450) k/uL Lymphocytes # 0.6 L (1.0-4.8) k/uL Macrocytosis Marked A PT (9.0-12.0) sec INR (<1.2) Sodium 132 L (137-145) mmol/L Potassium 3.4 L (3.5-5.1) mmol/L Chloride 95 L (98-107) mmol/L Carbon Dioxide (22-30) mmol/L BUN 4 L (7-17) mg/dL Creatinine 0.46 L (0.52-1.04) mg/dL Glucose (74-99) mg/dL Plasma Lactic Acid Paulino (0.7-2.0) mmol/L Calcium 7.9 L (8.4-10.2) mg/dL Phosphorus 0.6 L* (2.5-4.5) mg/dL Total Bilirubin 5.1 H (0.2-1.3) mg/dL AST 102 H (14-36) U/L Alkaline Phosphatase 270 H (38-126) U/L Ammonia 48 H (<30) umol/L Total Protein 5.9 L (6.3-8.2) g/dL Albumin 2.5 L (3.5-5.0) g/dL Crossmatch 08/18/19 08/18/19 Range/Units 08:09 10:33 WBC (3.8-10.6) k/uL RBC (3.80-5.40) m/uL Hgb (11.4-16.0) gm/dL Hct (34.0-46.0) % MCV (80.0-100.0) fL MCH (25.0-35.0) pg MCHC (31.0-37.0) g/dL RDW (11.5-15.5) % Plt Count (150-450) k/uL Lymphocytes # (1.0-4.8) k/uL Macrocytosis PT 16.0 H (9.0-12.0) sec INR 1.6 H (<1.2) Sodium (137-145) mmol/L Potassium (3.5-5.1) mmol/L Chloride (98-107) mmol/L Carbon Dioxide (22-30) mmol/L BUN (7-17) mg/dL Creatinine (0.52-1.04) mg/dL Glucose (74-99) mg/dL Plasma Lactic Acid Paulino (0.7-2.0) mmol/L Calcium (8.4-10.2) mg/dL Phosphorus (2.5-4.5) mg/dL Total Bilirubin (0.2-1.3) mg/dL AST (14-36) U/L Alkaline Phosphatase (38-126) U/L Ammonia (<30) umol/L Total Protein (6.3-8.2) g/dL Albumin (3.5-5.0) g/dL Crossmatch See Detail CT scan - chest: report reviewed (Computed tomography scan of the chest without any definitive evidence of pulmonary evidence with hepatosplenomegaly noted.) Assessment and Plan (1) Alcoholic liver disease Narrative/Plan: 39-year-old female with multiple medical comorbidities including alcohol liver disease, alcohol abuse, gastritis, internal and external hemorrhoids presented to the hospital with complaints of weakness and dizziness. Patient found to be anemic on presentation. She has serologic evidence of alcoholic liver disease and likely cirrhosis with hepatosplenomegaly noted on computed tomography scan and elevation in bilirubin and INR suggestive of possible cirrhosis, without tissue confirmation in the past. She continues to actively drink alcohol. Plan is for full serology to rule out other etiology/intrinsic liver disease. Current Visit: Yes Status: Acute Code(s): K70.9 - ALCOHOLIC LIVER DISEASE, UNSPECIFIED SNOMED Code(s): 59706149 (2) Pancytopenia Narrative/Plan: Patient has been noted to be pancytopenic, multiple admissions in the past which is likely related to myelosuppression from her underlying alcohol abuse. Evaluation with EGD and colonoscopy negative for a source of bleeding on patient's admission in May. She also underwent hemorrhoidectomy one month ago to address complaints of intermittent red blood per rectum. Current Visit: No Status: Acute Code(s): D61.818 - OTHER PANCYTOPENIA SNOMED Code(s): 699852110 (3) ETOH abuse Current Visit: No Status: Acute Code(s): F10.10 - ALCOHOL ABUSE, UNCOMPLICATED SNOMED Code(s): 55331108 (4) Nausea & vomiting Current Visit: No Status: Acute Code(s): R11.2 - NAUSEA WITH VOMITING, UNSPECIFIED SNOMED Code(s): 05608694 Plan: Supportive care Okay for diet as tolerated Continue to monitor CBC, CMP Full liver serologies ordered to rule out intrinsic liver disease No plans for endoscopic evaluation at this time given patient's multiple end oscopic evaluations in the past, including recent evaluation with EGD and colonoscopy on which was negative for source of bleeding Continue to monitor hemoglobin and transfuse as needed Thank you for allowing us to participate in the care of this patient we will continue to follow
[2019-08-19] MEDS: SODIUM CHLORIDE 0.9% 1,000 ML IV SCH ×2 (06:43→09:04)
[2019-08-19] MEDS: LORazepam 2 MG/ML INJ IV PRN ×3 (06:47→23:06)
[2019-08-19] MEDS: PANTOPRAZOLE 40 MG TABLET PO SCH (06:47)
[2019-08-19] MEDS: THIAMINE 100 MG TAB PO SCH ×2 (06:47→15:29)
[2019-08-19] MEDS ORDERED: PHYTONADIONE 5 MG in SODIUM CHLORIDE 0.9% 50 ML IVPB STA (08:22)
[2019-08-19] MEDS: LACTULOSE 20 GM/30 ML CUP PO SCH ×3 (09:02→21:38)
[2019-08-19] MEDS: KETOROLAC 30 MG/ML 1 ML VIAL IVP PRN ×2 (09:05→15:23)
[2019-08-19] MEDS: POTAS-SOD-PHOS 278-164-250 MG 1 EACH PACKET PO SCH ×3 (09:09→21:36)
[2019-08-19 09:19] LABS: ALT 14 U/L (4-34); AST 116 U/L (14-36); African American GFR (CKD) >90 (>60 ml/min/1.73 sqM); Albumin 2.4 g/dL (3.5-5.0); Alkaline Phosphatase 218 U/L (38-126); Anion Gap 9 mmol/L; Blood Urea Nitrogen 2 mg/dL (7-17); Carbon Dioxide 24 mmol/L (22-30); Chloride 103 mmol/L (98-107); Glucose 116 mg/dL (74-99); Non-African American GFR(CKD) >90 (>60 ml/min/1.73 sqM); Potassium 3.9 mmol/L (3.5-5.1); Sodium 136 mmol/L (137-145); Total Bilirubin 4.8 mg/dL (0.2-1.3); Total Protein 5.5 g/dL (6.3-8.2)
[2019-08-19 09:24] LABS: Anisocytosis Moderate; Basophils # (A) 0.1 k/uL (0-0.2); Basophils % (A) 1 %; Eosinophils # (A) 0.1 k/uL (0-0.7); Eosinophils % (A) 2 %; HGB 7.5 gm/dL (11.4-16.0); Hypochromasia Moderate; Lymphocytes # (A) 0.9 k/uL (1.0-4.8); Lymphocytes % (A) 18 %; MCH 35.2 pg (25.0-35.0); MCHC 31.4 g/dL (31.0-37.0); Macrocytosis Marked; Mean Platelet Volume 9.1; Monocytes # (A) 0.3 k/uL (0-1.0); Monocytes % (A) 7 %; Neutrophils # (A) 3.4 k/uL (1.3-7.7); Neutrophils % (A) 70 %; Platelet Count 105 k/uL (150-450); Poikilocytosis Slight; RBC 2.14 m/uL (3.80-5.40); RDW 22.4 % (11.5-15.5); WBC 4.8 k/uL (3.8-10.6)
[2019-08-19 10:30] LABS: Ceruloplasmin 23.7 mg/dL (20.0-60.0)
[2019-08-19 11:50] LABS: Liver/Kidney Microsome Antibod 4.1 UNITS (<=20)
[2019-08-19] MEDS ORDERED: PHYTONADIONE ORAL 5 MG/5 ML ORAL.SYRG PO STA (12:37)
[2019-08-19 14:36] LABS: ALT 14 U/L (4-34); AST 126 U/L (14-36); African American GFR (CKD) >90 (>60 ml/min/1.73 sqM); Albumin 2.6 g/dL (3.5-5.0); Alkaline Phosphatase 239 U/L (38-126); Anion Gap 11 mmol/L; Blood Urea Nitrogen 2 mg/dL (7-17); Calcium 8.3 mg/dL (8.4-10.2); Carbon Dioxide 24 mmol/L (22-30); Chloride 103 mmol/L (98-107); Glucose 106 mg/dL (74-99); Non-African American GFR(CKD) >90 (>60 ml/min/1.73 sqM); Potassium 3.8 mmol/L (3.5-5.1); Sodium 138 mmol/L (137-145); Total Bilirubin 5.3 mg/dL (0.2-1.3); Total Protein 6.1 g/dL (6.3-8.2)
[2019-08-19 15:15] LABS: Anisocytosis Moderate; Basophils # (A) 0.1 k/uL (0-0.2); Basophils % (A) 2 %; Eosinophils # (A) 0.1 k/uL (0-0.7); Eosinophils % (A) 2 %; HCT 26.2 % (34.0-46.0); Hypochromasia Moderate; Lymphocytes # (A) 0.9 k/uL (1.0-4.8); Lymphocytes % (A) 19 %; MCH 34.5 pg (25.0-35.0); MCHC 30.6 g/dL (31.0-37.0); MCV 112.9 fL (80.0-100.0); Macrocytosis Marked; Monocytes # (A) 0.3 k/uL (0-1.0); Monocytes % (A) 7 %; Neutrophils # (A) 3.1 k/uL (1.3-7.7); Neutrophils % (A) 68 %; Platelet Count 101 k/uL (150-450); Poikilocytosis Slight; RBC 2.32 m/uL (3.80-5.40); RDW 22.7 % (11.5-15.5); WBC 4.5 k/uL (3.8-10.6)
[2019-08-19 15:44] LABS: Polychromasia Present
[2019-08-19 15:45] LABS: Large Platelets Present
--- NOTE | 2019-08-19 16:51 | P.CONS ---
History of Present Illness - Reason for Consult Consult date: 08/19/19 Pancytopenia - History of Present Illness The patient is a 39-year-old white female with multiple medical problems, including a history of heavy alcohol use. She was previously seen in 09/21 when she had presented with abdominal pain. In that time she'll noted to have pancytopenia with hemoglobin in the 9-10 range, white blood cells in the 2-3000 range and platelets in the 90-100,000 range. For pancytopenia labs were negative. It is felt that she likely had underlying marrow damage from heavy alcohol use, with temporary worsening due to stress of acute illness. Her counts actually started to improve during her hospitalization. At that time the patient did stated that she did quit drinking workup of years. However she did resume alcohol collection again to was significant extent. She has been drinking at least the fifth of alcohol daily or more. She was brought to the hospital this time as her significant other noted to be jaundiced. In the ER her hemoglobin was in the 7 range, white blood cells in the 3000 range and platelets 89,000. Hemoglobin subsequently fell to 6.1 due to which she was transfused. Consult was therefore placed for further evaluation and recommendations The patient has had multiple endoscopic evaluations, most recently in 05/26 revealing some gastritis as well as internal and external hemorrhoids. She had been having ongoing rectal bleeding at the time. The patient subsequently had hemorrhoid surgery last month with improvement in her bleeding though not total resolution Review of Systems Constitutional: Reports fatigue, Reports poor appetite, Reports weakness Eyes: denies blurred vision, denies pain Ears: deny: decreased hearing, ear discharge, earache, tinnitus Ears, nose, mouth and throat: Denies headache, Denies sore throat Cardiovascular: Reports decreased exercise tolerance Respiratory: Reports dyspnea Gastrointestinal: Reports abdominal pain, Reports hematochezia, Reports jaundice Genitourinary: Denies dysuria, Denies hematuria Menstruation: Reports period normal Musculoskeletal: Reports muscle weakness Integumentary: Reports color changes Neurological: Reports weakness Psychiatric: Reports as per HPI, Reports anxiety Endocrine: Reports fatigue, Reports weight change Hematologic/Lymphatic: Reports as per HPI Past Medical History Past Medical History: GERD/Reflux Additional Past Medical History / Comment(s): Hepatic steatosis, ETOH abuse, gastritis, duodenitis, lower GI bleed, colitis, hemorrhoids, bronchitis, R side nephrolithiasis with surgery, bilateral ovarian cysts, neuropathy bilateral hands/legs and tops of both feet, hypokalemia, hypoalbumenemia, pancytopenia. History of Any Multi-Drug Resistant Organisms: None Reported Past Surgical History: Appendectomy, Orthopedic Surgery Additional Past Surgical History / Comment(s): Left knee surgeries-3 arthroscopic and one open, EGDs, colonoscopies, R sided lithotripsy. Past Anesthesia/Blood Transfusion Reactions: No Reported Reaction Additional Past Anesthesia/Blood Transfusion Reaction / Comm: Pt has received blood in past without reaction. Smoking Status: Current every day smoker - Past Family History Mother Family Medical History: Diabetes Mellitus Additional Family Medical History / Comment(s): Borderline HTN Brother(s) Family Medical History: Diabetes Mellitus Father Family Medical History: Hypertension Additional Family Medical History / Comment(s): BOARDERLINE DM Medications and Allergies Home Medications Medication Instructions Recorded Confirmed Type Albuterol Sulfate [Ventolin HFA] 2 puff INHALATION RT-Q4H PRN 07/16/19 08/17/19 History Fluticasone Nasal [place] [Flonase 1 spray EA NOSTRIL BID PRN 07/16/19 08/17/19 History Nasal [place]] Acetaminophen Tab [Tylenol Tab] 500 - 1,000 mg PO Q6H PRN 08/17/19 08/17/19 History Acetaminophen/Diphenhydramine 2 tab PO HS 08/17/19 08/17/19 History [Tylenol PM 500-25mg] Ranitidine HCl [Zantac] 75 mg PO BID PRN 08/17/19 08/17/19 History Allergies Allergy/AdvReac Type Severity Reaction Status Date / Time cephalexin monohydrate Allergy Rash/Hives Verified 08/17/19 10:57 [From Keflex] codeine Allergy Rash/Hives Verified 08/17/19 10:57 Physical Exam Vitals: Vital Signs Temp Pulse Pulse Resp BP BP Pulse Ox 08/19/19 12:00 132 H 18 99/54 92 L 08/19/19 09:15 98.7 F 126 H 18 96/55 94 L 08/19/19 06:42 98.7 F 122 H 17 88/53 92 L 08/19/19 04:51 98.6 F 125 H 16 96/58 08/19/19 04:21 98.4 F 122 H 16 97/56 100 08/19/19 04:11 98.5 F 118 H 17 98/53 93 L 08/19/19 04:10 98.5 F 119 H 16 99/57 95 08/19/19 04:00 98.9 F 124 H 17 103/54 97 08/19/19 00:00 98.6 F 126 H 18 90/55 94 L 08/18/19 20:00 98.5 F 129 H 18 97/55 93 L Intake and Output 08/19/19 08/19/19 08/19/19 06:59 14:59 22:59 Intake Total 910 840 Balance 910 840 Intake: IV 600 300 Sodium Chloride 0.9% 1, 600 300 000 ml @ 60 mls/hr IV . [id number] [facility] Rx#:[id number] Intake, IV Titration 50 Amount Phytonadione 5 mg In 50 Sodium Chloride 0.9% 50 ml @ 100 mls/hr IVPB ONCE STA Rx#:[id number] Oral 490 Blood Product 310 Rc As-1 Unit 310 [id number] Other: Weight 49.4 kg - Constitutional General appearance: no acute distress - EENT Eyes: EOMI, PERRLA, scleral icterus ENT: hearing grossly normal, normal oropharynx - Neck Neck: no lymphadenopathy Thyroid: bilateral: normal size - Respiratory Respiratory: bilateral: CTA - Cardiovascular Rhythm: regular Heart sounds: normal: S1, S2 - Gastrointestinal General gastrointestinal: hepatomegaly, normal bowel sounds, soft Localized gastrointestinal: tender: RUQ - Integumentary Integumentary: jaundiced - Neurologic Neurologic: CNII-XII intact - Musculoskeletal Musculoskeletal: generalized weakness, strength equal bilaterally - Psychiatric Psychiatric: A&O x's 3, appropriate affect Results CBC & Chem 7: 08/19/19 13:42 08/19/19 13:42 Labs: Abnormal Lab Results - Last 24 Hours (Table) 08/18/19 08/18/19 08/19/19 Range/Units 08:09 14:51 08:43 RBC 2.14 L (3.80-5.40) m/uL Hgb 7.5 L (11.4-16.0) gm/dL Hct 24.0 L (34.0-46.0) % MCV 112.0 H D (80.0-100.0) fL MCH 35.2 H (25.0-35.0) pg MCHC (31.0-37.0) g/dL RDW 22.4 H (11.5-15.5) % Plt Count 105 L (150-450) k/uL Lymphocytes # 0.9 L (1.0-4.8) k/uL Macrocytosis Marked A Sodium (137-145) mmol/L BUN (7-17) mg/dL Creatinine (0.52-1.04) mg/dL Glucose (74-99) mg/dL Calcium (8.4-10.2) mg/dL TIBC 145 L (228-460) ug/dL % Saturation 63.45 H (12.00-45.00) Ferritin 978.9 H (10.0-291.0) ng/mL Total Bilirubin (0.2-1.3) mg/dL AST (14-36) U/L Alkaline Phosphatase (38-126) U/L Total Protein (6.3-8.2) g/dL Albumin (3.5-5.0) g/dL Crossmatch See Detail 08/19/19 08/19/19 08/19/19 Range/Units 08:43 13:42 13:42 RBC 2.32 L (3.80-5.40) m/uL Hgb 8.0 L (11.4-16.0) gm/dL Hct 26.2 L (34.0-46.0) % MCV 112.9 H (80.0-100.0) fL MCH (25.0-35.0) pg MCHC 30.6 L (31.0-37.0) g/dL RDW 22.7 H (11.5-15.5) % Plt Count 101 L (150-450) k/uL Lymphocytes # 0.9 L (1.0-4.8) k/uL Macrocytosis Marked A Sodium 136 L (137-145) mmol/L BUN 2 L 2 L (7-17) mg/dL Creatinine 0.47 L (0.52-1.04) mg/dL Glucose 116 H 106 H (74-99) mg/dL Calcium 8.0 L 8.3 L (8.4-10.2) mg/dL TIBC (228-460) ug/dL % Saturation (12.00-45.00) Ferritin (10.0-291.0) ng/mL Total Bilirubin 4.8 H 5.3 H (0.2-1.3) mg/dL AST 116 H 126 H (14-36) U/L Alkaline Phosphatase 218 H 239 H (38-126) U/L Total Protein 5.5 L 6.1 L (6.3-8.2) g/dL Albumin 2.4 L 2.6 L (3.5-5.0) g/dL Crossmatch Comments: EGD/colonoscopy procedure note, hemorrhoidectomy op note, and pathology reports reviewed and summarized above Chest x-ray: report reviewed CT scan - abdomen: report reviewed CT scan - chest: report reviewed CT scan - pelvis: report reviewed Assessment and Plan (1) Anemia Narrative/Plan: The patient had previously been seen for the same problem. Currently hemoglobin is significantly worse than when seen in 2017. This is likely multifactorial. The patient has sustained additional marrow damage due to continued heavy alcohol use. In addition she has had a persistent rectal bleeding, leading up to her hemorrhoidectomy. She did have iron studies done during this admission which have shown an increase in ferritin. However these are not reliable in the setting of the patient receiving blood transfusions, and also having delivered inflammation. Therefore underlying iron deficiency, in addition to marrow suppression from alcohol , cannot be totally ruled out. Transfuse to keep hemoglobin greater than 7. She did have an appropriate response to transfusion with hemoglobin stabilized at age today. Workup for ot her causes of anemia will be ordered, especially on her deficiency states Current Visit: Yes Status: Acute Code(s): D64.9 - ANEMIA, UNSPECIFIED SNOMED Code(s): 253814632 (2) Pancytopenia Narrative/Plan: The patient has had workup for the same, which was negative for other causes. Therefore the clinical impression is that of pancytopenia, due to severe marrow suppression from her continued, heavy alcohol use. Admission active liver inflammation is also likely a concluding factor, especially her thrombocytopenia. Her WBC and platelets are actually stable in a safe range. In fact WBC is increased into the 40,000 range, and platelets have increased back into the 100,000 range. As noted above, workup for other causes, especially other def iciency states will be ordered. If negative with treatment is required at this particular range, other than alcohol cessation. The patient was strongly counseled about quitting alcohol, as she would be at risk for progressive, permanent bone marrow failure with continued use. She expressed understanding of the same and states that she is definitely planning to quit going forward. Continue to monitor Current Visit: No Status: Acute Code(s): D61.818 - OTHER PANCYTOPENIA SNOMED Code(s): 203193049 Plan: Defer to the admitting service and other consultants for management of her multiple other medical issues.
[2019-08-19 18:27] LABS: Protein, Total 4.9 g/dL (6.2-8.2)
[2019-08-19] MEDS: HYDROcodone/APAP 5-325MG 1 EACH TAB PO PRN (18:57)
--- NOTE | 2019-08-19 20:23 | PN ---
PROGRESS NOTE CHIEF COMPLAINT: Cirrhosis, ascites, pancytopenia and alcoholism. HISTORY OF PRESENT ILLNESS: This lady is not doing particularly well. She has developed diarrhea, but this is probably from her lactulose. PHYSICAL EXAMINATION: She is afebrile. She remains pale, chronically ill and jaundiced in appearance. Head, ears, eyes, nose, mouth and throat are normal. Chest is clear. Cardiac exam demonstrates tachycardia. The abdomen is somewhat distended with ascites. Liver is enlarged. Extremities are normal. IMPRESSION: 1. Chronic alcoholism. 2. Cirrhosis. 3. Ascites. 4. Pancytopenia. PLAN: 1. Continue to follow labs. 2. Continue with lactulose. MMODL / IJN: [id number] /
[2019-08-20] MEDS: HYDROcodone/APAP 5-325MG 1 EACH TAB PO PRN ×3 (05:31→20:22)
[2019-08-20] MEDS: THIAMINE 100 MG TAB PO SCH ×2 (06:31→17:02)
[2019-08-20] MEDS: PANTOPRAZOLE 40 MG TABLET PO SCH (06:31)
--- NOTE | 2019-08-20 07:10 | P.PN ---
Subjective Progress Note Date: 08/19/19 Principal diagnosis: Alcohol liver disease, painless rectal bleeding, history of hemorrhoids status post hemorrhoidectomy with surgical service Patient seen lying in bed reporting that she is tolerating diet. No nausea or vomiting. She did have some painless rectal bleeding. Objective - Vital Signs Vital signs: Vital Signs Temp 98.6 F 08/19/19 19:30 Pulse 130 H 08/19/19 19:30 Resp 18 08/19/19 19:30 BP 100/64 08/19/19 19:30 Pulse Ox 92 L 08/19/19 19:30 Intake & Output 08/19/19 08/19/19 08/20/19 06:59 18:59 06:59 Intake Total 910 1440 Balance 910 1440 Weight 49.4 kg Intake: IV 600 300 Sodium Chloride 0.9% 1, 600 300 000 ml @ 60 mls/hr IV . [id number] [facility] Rx#:[id number] Intake, IV Titration 50 Amount Phytonadione 5 mg In 50 Sodium Chloride 0.9% 50 ml @ 100 mls/hr IVPB ONCE STA Rx#:[id number] Oral 1090 Blood Product 310 Rc As-1 Unit 310 [id number] Other: Voiding Method Toilet # Bowel Movements 3 - Exam On physical examination, patient appears comfortable in no apparent distress. HEAD: Normocephalic, atraumatic. EYES: Scleral icterus. No conjunctival injection. MOUTH: No lesions, tongue midline. NECK: Trachea midline, no gross abnormalities. ABDOMEN: Soft, nontender to palpation. Bowel sounds are positive. No organomegaly. No guarding or rigidity. EXTREMITIES: No pedal edema. SKIN: No rashes, jaundice. NEUROLOGIC: Alert and oriented x3. No focal deficits. - Labs CBC & Chem 7: 08/19/19 13:42 08/19/19 13:42 Labs: Abnormal Lab Results - Last 24 Hours (Table) 08/18/19 08/18/19 08/19/19 Range/Units 08:09 14:51 08:43 RBC 2.14 L (3.80-5.40) m/uL Hgb 7.5 L (11.4-16.0) gm/dL Hct 24.0 L (34.0-46.0) % MCV 112.0 H D (80.0-100.0) fL MCH 35.2 H (25.0-35.0) pg MCHC (31.0-37.0) g/dL RDW 22.4 H (11.5-15.5) % Plt Count 105 L (150-450) k/uL Lymphocytes # 0.9 L (1.0-4.8) k/uL Macrocytosis Marked A Sodium (137-145) mmol/L BUN (7-17) mg/dL Creatinine (0.52-1.04) mg/dL Glucose (74-99) mg/dL Calcium (8.4-10.2) mg/dL TIBC 145 L (228-460) ug/dL % Saturation 63.45 H (12.00-45.00) Ferritin 978.9 H (10.0-291.0) ng/mL Total Bilirubin (0.2-1.3) mg/dL AST (14-36) U/L Alkaline Phosphatase (38-126) U/L Total Protein (6.3-8.2) g/dL Total Protein (PEP) (6.2-8.2) g/dL Albumin (3.5-5.0) g/dL Crossmatch See Detail 08/19/19 08/19/19 08/19/19 Range/Units 08:43 08:43 13:42 RBC 2.32 L (3.80-5.40) m/uL Hgb 8.0 L (11.4-16.0) gm/dL Hct 26.2 L (34.0-46.0) % MCV 112.9 H (80.0-100.0) fL MCH (25.0-35.0) pg MCHC 30.6 L (31.0-37.0) g/dL RDW 22.7 H (11.5-15.5) % Plt Count 101 L (150-450) k/uL Lymphocytes # 0.9 L (1.0-4.8) k/uL Macrocytosis Marked A Sodium 136 L (137-145) mmol/L BUN 2 L (7-17) mg/dL Creatinine 0.47 L (0.52-1.04) mg/dL Glucose 116 H (74-99) mg/dL Calcium 8.0 L (8.4-10.2) mg/dL TIBC (228-460) ug/dL % Saturation (12.00-45.00) Ferritin (10.0-291.0) ng/mL Total Bilirubin 4.8 H (0.2-1.3) mg/dL AST 116 H (14-36) U/L Alkaline Phosphatase 218 H (38-126) U/L Total Protein 5.5 L (6.3-8.2) g/dL Total Protein (PEP) 4.9 L (6.2-8.2) g/dL Albumin 2.4 L (3.5-5.0) g/dL Crossmatch 08/19/19 Range/Units 13:42 RBC (3.80-5.40) m/uL Hgb (11.4-16.0) gm/dL Hct (34.0-46.0) % MCV (80.0-100.0) fL MCH (25.0-35.0) pg MCHC (31.0-37.0) g/dL RDW (11.5-15.5) % Plt Count (150-450) k/uL Lymphocytes # (1.0-4.8) k/uL Macrocytosis Sodium (137-145) mmol/L BUN 2 L (7-17) mg/dL Creatinine (0.52-1.04) mg/dL Glucose 106 H (74-99) mg/dL Calcium 8.3 L (8.4-10.2) mg/dL TIBC (228-460) ug/dL % Saturation (12.00-45.00) Ferritin (10.0-291.0) ng/mL Total Bilirubin 5.3 H (0.2-1.3) mg/dL AST 126 H (14-36) U/L Alkaline Phosphatase 239 H (38-126) U/L Total Protein 6.1 L (6.3-8.2) g/dL Total Protein (PEP) (6.2-8.2) g/dL Albumin 2.6 L (3.5-5.0) g/dL Crossmatch Assessment and Plan (1) Alcoholic liver disease Narrative/Plan: 39-year-old female with multiple medical comorbidities including alcohol liver disease, alcohol abuse, gastritis, internal and external hemorrhoids presented to the hospital with complaints of weakness and dizziness. Patient found to be anemic on presentation. She has serologic evidence of alcoholic liver disease and likely cirrhosis with hepatosplenomegaly noted on computed tomography scan and elevation in bilirubin and INR suggestive of possible cirrhosis, without tis fabian confirmation in the past. She continues to actively drink alcohol. Plan is for full serology to rule out other etiology/intrinsic liver disease negative to date. Current Visit: Yes Status: Acute Code(s): K70.9 - ALCOHOLIC LIVER DISEASE, UNSPECIFIED SNOMED Code(s): 04291791 (2) Pancytopenia Narrative/Plan: Patient has been noted to be pancytopenic, multiple admissions in the past which is likely related to myelosuppression from her underlying alcohol abuse. Evaluation with EGD and colonoscopy negative for a source of bleeding on patient's admission in May. She also underwent hemorrhoidectomy one month ago to address complaints of intermittent red blood per rectum. Current Visit: No Status: Acute Code(s): D61.818 - OTHER PANCYTOPENIA S NOMED Code(s): 120098403 (3) ETOH abuse Current Visit: No Status: Acute Code(s): F10.10 - ALCOHOL ABUSE, UNCOMPLICATED SNOMED Code(s): 31117172 (4) Nausea & vomiting Current Visit: No Status: Acute Code(s): R11.2 - NAUSEA WITH VOMITING, UNSPECIFIED SNOMED Code(s): 27308482 Plan: Supportive care Okay for diet as tolerated Continue to monitor CBC, CMP Full liver serologies ordered in negative to date No plans for endoscopic evaluation at this time given patient's multiple endoscopic evaluations in the past, including recent evaluation with EGD and colonoscopy on which was negative for source of bleeding Continue to monitor hemoglobin and transfuse as needed Surgical consultation, patient continues to have painless rectal bleeding after hemorrhoidectomy Thank you for allowing us to participate in the care of this patient we will continue to follow
[2019-08-20 07:15] LABS: Anisocytosis Moderate; Basophils # (A) 0.1 k/uL (0-0.2); Basophils % (A) 2 %; Eosinophils # (A) 0.1 k/uL (0-0.7); Eosinophils % (A) 3 %; HCT 23.5 % (34.0-46.0); HGB 7.4 gm/dL (11.4-16.0); Hypochromasia Moderate; Lymphocytes % (A) 23 %; MCH 35.4 pg (25.0-35.0); MCHC 31.3 g/dL (31.0-37.0); MCV 113.2 fL (80.0-100.0); Macrocytosis Marked; Mean Platelet Volume 9.2; Monocytes # (A) 0.4 k/uL (0-1.0); Monocytes % (A) 9 %; Neutrophils # (A) 2.8 k/uL (1.3-7.7); Neutrophils % (A) 61 %; Platelet Count 105 k/uL (150-450); Poikilocytosis Slight; RBC 2.08 m/uL (3.80-5.40); RDW 22.6 % (11.5-15.5); WBC 4.5 k/uL (3.8-10.6)
[2019-08-20 07:30] LABS: ALT 12 U/L (4-34); AST 94 U/L (14-36); African American GFR (CKD) >90 (>60 ml/min/1.73 sqM); Albumin 2.1 g/dL (3.5-5.0); Alkaline Phosphatase 218 U/L (38-126); Anion Gap 6 mmol/L; Blood Urea Nitrogen 2 mg/dL (7-17); Calcium 7.6 mg/dL (8.4-10.2); Carbon Dioxide 25 mmol/L (22-30); Chloride 103 mmol/L (98-107); Glucose 98 mg/dL (74-99); Non-African American GFR(CKD) >90 (>60 ml/min/1.73 sqM); Potassium 3.7 mmol/L (3.5-5.1); Sodium 134 mmol/L (137-145); Total Bilirubin 4.1 mg/dL (0.2-1.3); Total Protein 5.2 g/dL (6.3-8.2)
[2019-08-20 07:46] LABS: Large Platelets Present
[2019-08-20 09:43] LABS: Free Kappa Lt Chain Qnt, Serum 3.44 mg/dL (0.33-1.94)
[2019-08-20] MEDS: LACTULOSE 20 GM/30 ML CUP PO SCH ×3 (09:52→22:39)
[2019-08-20 09:54] LABS: INR 1.5 (<1.2); Prothrombin Time 14.9 sec (9.0-12.0)
[2019-08-20] MEDS: KETOROLAC 30 MG/ML 1 ML VIAL IVP PRN (09:59)
[2019-08-20] MEDS: POTAS-SOD-PHOS 278-164-250 MG 1 EACH PACKET PO SCH ×2 (10:02→18:06)
[2019-08-20 10:57] LABS: Albumin 2.18 g/dL (3.80-4.90); Gamma Globulin 1.26 g/dL (0.70-1.50)
[2019-08-20] MEDS ORDERED: PHYTONADIONE 10 MG in SODIUM CHLORIDE 0.9% 50 ML IVPB STA (12:00)
[2019-08-20] MEDS: 1: MVI, ADULT NO.4 WITH VIT K 10 ML, THIAMINE 100 MG, FOLIC ACID 1 MG in SODIUM CHLORIDE IV SCH ×4 (13:40)
[2019-08-20] MEDS: SODIUM CHLORIDE 0.9% 1,000 ML IV SCH (13:41)
--- NOTE | 2019-08-20 14:18 | PN ---
PROGRESS NOTE CHIEF COMPLAINT: Cirrhosis and pancytopenia. HISTORY OF PRESENT ILLNESS: This lady is holding her own at this time. Liver enzymes are coming down very slowly. Hemoglobin is just about 7. Ammonia is down. PHYSICAL EXAMINATION: She remains pale and slightly jaundiced. Head, ears, eyes, nose, mouth, and throat are normal. The chest is clear. Cardiac exam demonstrates tachycardia. The abdomen is soft and there is a moderate amount of ascites. IMPRESSION: 1. Chronic alcoholism. 2. Alcoholic hepatitis. 3. Cirrhosis. 4. Portal hypertension with ascites. 5. Pancytopenia. PLAN: Continue on current program as she continues to make very slow progress. MMODL / IJN: [id number] /
[2019-08-20 15:18] LABS: Anisocytosis Moderate; HCT 25.3 % (34.0-46.0); HGB 7.7 gm/dL (11.4-16.0); Hypochromasia Moderate; MCH 34.8 pg (25.0-35.0); MCHC 30.6 g/dL (31.0-37.0); MCV 113.5 fL (80.0-100.0); Macrocytosis Marked; Mean Platelet Volume 9.2; Platelet Count 106 k/uL (150-450); Poikilocytosis Slight; RBC 2.23 m/uL (3.80-5.40); RDW 22.6 % (11.5-15.5); WBC 5.4 k/uL (3.8-10.6)
--- NOTE | 2019-08-20 15:56 | P.GSCN ---
History of Present Illness Consult date: 08/20/19 Reason for Consult: Recent hemorrhoidectomy Requesting physician: Camilla Gupta History of present illness: CHIEF COMPLAINT: Recent hemorrhoidectomy HISTORY OF PRESENT ILLNESS: 39-year-old female known to surgical services due to recent hemorrhoidectomy in July 2019. Patient has continued to have some intermittent rectal bleeding since that time. General surgery was consulted for further evaluation. PAST MEDICAL HISTORY: See list. PAST SURGICAL HISTORY: See list. SOCIAL HISTORY: History of ETOH abuse. REVIEW OF SYSTEMS: CONSTITUTIONAL: Denies fever or chills. HEENT: Denies blurred vision, vision changes, or eye pain. Denies hemoptysis CARDIOVASCULAR: Denies chest pain or pressure. RESPIRATORY: No shortness of breath. GASTROINTESTINAL: Refer to HPI for pertinent findings HEMATOLOGIC: Denies bleeding disorders. GENITOURINARY: Denies any blood in urine. SKIN: Denies pruitis. Denies rash. PHYSICAL EXAM: VITAL SIGNS: Reviewed. GENERAL: Well-developed in no acute distress. HEENT: Bilateral sclera icterus. Extraocular movements grossly intact. Moist buccal mucosa. Head is atraumatic, normocephalic. ABDOMEN: Soft. Nondistended. Nontender. NEUROLOGIC: Alert and oriented. Cranial nerves II through XII grossly intact. LABORATORY DATA: WBC 4.5. Hemoglobin 7.4. Platelet count 105. INR 1.5. ASSESSMENT: 1. Rectal bleeding 2. Recent hemorrhoidectomy, July 2019 PLAN: Repeat hemoglobin this afternoon Give additional 10mg Vitamin K due to rectal bleeding and slightly elevated INR Alcohol abstinence recommended No surgical intervention recommended Thank you for this consultation Nurse practitioner note has been reviewed by physician. Signing provider agrees with the documented findings, assessment, and plan of care. Past Medical History Past Medical History: GERD/Reflux Additional Past Medical History / Comment(s): Hepatic steatosis, ETOH abuse, gastritis, duodenitis, lower GI bleed, colitis, hemorrhoids, bronchitis, R side nephrolithiasis with surgery, bilateral ovarian cysts, neuropathy bilateral hands/legs and tops of both feet, hypokalemia, hypoalbumenemia, pancytopenia. History of Any Multi-Drug Resistant Organisms: None Reported Past Surgical History: Appendectomy, Orthopedic Surgery Additional Past Surgical History / Comment(s): Left knee surgeries-3 arthroscopic and one open, EGDs, colonoscopies, R sided lithotripsy. Past Anesthesia/Blood Transfusion Reactions: No Reported Reaction Additional Past Anesthesia/Blood Transfusion Reaction / Comm: Pt has received blood in past without reaction. Smoking Status: Current every day smoker - Past Family History Mother Family Medical History: Diabetes Mellitus Additional Family Medical History / Comment(s): Borderline HTN Brother(s) Family Medical History: Diabetes Mellitus Father Family Medical History: Hypertension Additional Family Medical History / Comment(s): BOARDERLINE DM Medications and Allergies Home Medications Medication Instructions Recorded Confirmed Type Albuterol Sulfate [Ventolin HFA] 2 puff INHALATION RT-Q4H PRN 07/16/19 08/17/19 History Fluticasone Nasal [place] [Flonase 1 spray EA NOSTRIL BID PRN 07/16/19 08/17/19 History Nasal [place]] Acetaminophen Tab [Tylenol Tab] 500 - 1,000 mg PO Q6H PRN 08/17/19 08/17/19 History Acetaminophen/Diphenhydramine 2 tab PO HS 08/17/19 08/17/19 History [Tylenol PM 500-25mg] Ranitidine HCl [Zantac] 75 mg PO BID PRN 08/17/19 08/17/19 History Allergies Allergy/AdvReac Type Severity Reaction Status Date / Time cephalexin monohydrate Allergy Rash/Hives Verified 08/17/19 10:57 [From Keflex] codeine Allergy Rash/Hives Verified 08/17/19 10:57 Surgical - Exam Vital Signs Temp Pulse Resp BP Pulse Ox 97.9 F 140 H 18 100/55 98 08/17/19 07:59 08/17/19 07:59 08/17/19 07:59 08/17/19 07:59 08/17/19 07:59 Results - Labs 08/20/19 14:52 08/20/19 06:30 Abnormal Lab Results - Last 24 Hours (Table) 08/19/19 08/19/19 08/20/19 Range/Units 08:43 13:42 06:30 RBC 2.32 L 2.08 L (3.80-5.40) m/uL Hgb 8.0 L 7.4 L (11.4-16.0) gm/dL Hct 26.2 L 23.5 L (34.0-46.0) % MCV 112.9 H 113.2 H (80.0-100.0) fL MCH 35.4 H (25.0-35.0) pg MCHC 30.6 L (31.0-37.0) g/dL RDW 22.7 H 22.6 H (11.5-15.5) % Plt Count 101 L 105 L (150-450) k/uL Lymphocytes # 0.9 L (1.0-4.8) k/uL Macrocytosis Marked A Marked A PT (9.0-12.0) sec INR (<1.2) Sodium (137-145) mmol/L BUN (7-17) mg/dL Creatinine (0.52-1.04) mg/dL Calcium (8.4-10.2) mg/dL Total Bilirubin (0.2-1.3) mg/dL AST (14-36) U/L Alkaline Phosphatase (38-126) U/L Total Protein (6.3-8.2) g/dL Total Protein (PEP) 4.9 L (6.2-8.2) g/dL Albumin (3.5-5.0) g/dL Albumin (PEP) 2.18 L (3.80-4.90) g/dL Mcrht-6-Mvfsxjcit 0.43 H (0.10-0.40) g/dL Mtwil-1-Bsdkrrxgu 0.46 L (0.60-1.00) g/dL Beta Globulins 0.57 L (0.60-1.30) g/dL Free Braymer LC, Quant 3.44 H (0.33-1.94) mg/dL Free Lambda LC, Quant 3.36 H (0.57-2.63) mg/dL 08/20/19 08/20/19 08/20/19 Range/Units 06:30 06:30 14:52 RBC 2.23 L (3.80-5.40) m/uL Hgb 7.7 L (11.4-16.0) gm/dL Hct 25.3 L (34.0-46.0) % MCV 113.5 H (80.0-100.0) fL MCH (25.0-35.0) pg MCHC 30.6 L (31.0-37.0) g/dL RDW 22.6 H (11.5-15.5) % Plt Count 106 L (150-450) k/uL Lymphocytes # (1.0-4.8) k/uL Macrocytosis Marked A PT 14.9 H (9.0-12.0) sec INR 1.5 H (<1.2) Sodium 134 L (137-145) mmol/L BUN 2 L (7-17) mg/dL Creatinine 0.46 L (0.52-1.04) mg/dL Calcium 7.6 L (8.4-10.2) mg/dL Total Bilirubin 4.1 H (0.2-1.3) mg/dL AST 94 H (14-36) U/L Alkaline Phosphatase 218 H (38-126) U/L Total Protein 5.2 L (6.3-8.2) g/dL Total Protein (PEP) (6.2-8.2) g/dL Albumin 2.1 L (3.5-5.0) g/dL Albumin (PEP) (3.80-4.90) g/dL Beukx-9-Opymjvkre (0.10-0.40) g/dL Pjlol-9-Aosohdvpe (0.60-1.00) g/dL Beta Globulins (0.60-1.30) g/dL Free Braymer LC, Quant (0.33-1.94) mg/dL Free Lambda LC, Quant (0.57-2.63) mg/dL Diabetes panel 08/20/19 Range/Units 06:30 Sodium 134 L (137-145) mmol/L Potassium 3.7 (3.5-5.1) mmol/L Chloride 103 (98-107) mmol/L Carbon Dioxide 25 (22-30) mmol/L BUN 2 L (7-17) mg/dL Creatinine 0.46 L (0.52-1.04) mg/dL Glucose 98 (74-99) mg/dL Calcium 7.6 L (8.4-10.2) mg/dL AST 94 H (14-36) U/L ALT 12 (4-34) U/L Alkaline Phosphatase 218 H (38-126) U/L Total Protein 5.2 L (6.3-8.2) g/dL Albumin 2.1 L (3.5-5.0) g/dL Calcium panel 08/20/19 Range/Units 06:30 Calcium 7.6 L (8.4-10.2) mg/dL Albumin 2.1 L (3.5-5.0) g/dL Pituitary panel 08/20/19 Range/Units 06:30 Sodium 134 L (137-145) mmol/L Potassium 3.7 (3.5-5.1) mmol/L Chloride 103 (98-107) mmol/L Carbon Dioxide 25 (22-30) mmol/L BUN 2 L (7-17) mg/dL Creatinine 0.46 L (0.52-1.04) mg/dL Glucose 98 (74-99) mg/dL Calcium 7.6 L (8.4-10.2) mg/dL Adrenal panel 08/20/19 Range/Units 06:30 Sodium 134 L (137-145) mmol/L Potassium 3.7 (3.5-5.1) mmol/L Chloride 103 (98-107) mmol/L Carbon Dioxide 25 (22-30) mmol/L BUN 2 L (7-17) mg/dL Creatinine 0.46 L (0.52-1.04) mg/dL Glucose 98 (74-99) mg/dL Calcium 7.6 L (8.4-10.2) mg/dL Total Bilirubin 4.1 H (0.2-1.3) mg/dL AST 94 H (14-36) U/L ALT 12 (4-34) U/L Alkaline Phosphatase 218 H (38-126) U/L Total Protein 5.2 L (6.3-8.2) g/dL Albumin 2.1 L (3.5-5.0) g/dL
[2019-08-20] MEDS: LORazepam 2 MG/ML INJ IV PRN (20:22)
[2019-08-21] MEDS: POTAS-SOD-PHOS 278-164-250 MG 1 EACH PACKET PO SCH ×4 (00:19→21:17)
[2019-08-21] MEDS: 1: MVI, ADULT NO.4 WITH VIT K 10 ML, THIAMINE 100 MG, FOLIC ACID 1 MG in SODIUM CHLORIDE IV SCH ×12 (00:21→21:20)
[2019-08-21] MEDS: HYDROcodone/APAP 5-325MG 1 EACH TAB PO PRN ×4 (03:02→21:18)
[2019-08-21] MEDS: PANTOPRAZOLE 40 MG TABLET PO SCH (07:56)
[2019-08-21] MEDS: THIAMINE 100 MG TAB PO SCH ×2 (07:56→17:38)
[2019-08-21] MEDS: LACTULOSE 20 GM/30 ML CUP PO SCH ×3 (08:00→21:16)
[2019-08-21 09:24] LABS: Anisocytosis Moderate; HCT 26.1 % (34.0-46.0); HGB 8.2 gm/dL (11.4-16.0); Hypochromasia Marked; MCH 36.4 pg (25.0-35.0); MCHC 31.4 g/dL (31.0-37.0); Macrocytosis Marked; Mean Platelet Volume 9.4; Platelet Count 126 k/uL (150-450); RBC 2.25 m/uL (3.80-5.40); RDW 22.6 % (11.5-15.5)
[2019-08-21 09:30] LABS: MCV 116.1 fL (80.0-100.0)
--- NOTE | 2019-08-21 11:34 | P.PN ---
Progress Note - Text Progress Note Date: 08/21/19 Patient still has some complaints of generalized abdominal pain. She is still jaundiced. On exam her vital signs are stable. Her abdomen soft. Status post EtOH abuse with liver failure and I dilation. Patient still has had some minimal rectal bleeding. She'll be observed. No surgical intervention is planned.
[2019-08-21] MEDS: KETOROLAC 30 MG/ML 1 ML VIAL IVP PRN (11:37)
--- NOTE | 2019-08-21 13:26 | P.PN ---
Subjective Progress Note Date: 08/21/19 Principal diagnosis: pancytopenia In follow-up today patient has no specific complaints Objective - Vital Signs Vital signs: Vital Signs Temp 98.4 F 08/21/19 12:08 Pulse 122 H 08/21/19 12:08 Resp 20 08/21/19 12:08 BP 108/66 08/21/19 12:08 Pulse Ox 93 L 08/21/19 12:08 Intake & Output 08/20/19 08/21/19 08/21/19 18:59 06:59 18:59 Intake Total 1140 1111.2 Output Total 1 Balance 1140 1110.2 Intake: IV 770 Phytonadione 10 mg In 50 Sodium Chloride 0.9% 50 ml @ 100 mls/hr IVPB ONCE STA Rx#:[id number] Sodium Chloride 0.9% 1, 720 000 ml @ 60 mls/hr IV . [id number] [facility] Rx#:[id number] Intake, IV Titration 1011.2 Amount Mvi, Adult No.4 with Vit 1011.2 K 10 ml Thiamine 100 mg Folic Acid 1 mg In Sodium Chloride 0.9% 1,000 ml @ 100 mls/hr IV .BY DURATION [facility] Rx#: [id number] Oral 370 100 Output: Urine/Stool Mix 1 Other: Voiding Method Toilet # Voids 1 1 2 # Bowel Movements 1 1 1 - Constitutional Constitutional Comment(s): appears significantly older than chronological age of 39, jaundiced appearance, pale, alert, slow to respond to questions, respirations even and unlabored, skin is warm and dry to the touch. General appearance: Present: cooperative, no acute distress, thin - Labs CBC & Chem 7: 08/21/19 08:51 08/20/19 06:30 Labs: Abnormal Lab Results - Last 24 Hours (Table) 08/20/19 08/21/19 Range/Units 14:52 08:51 RBC 2.23 L 2.25 L (3.80-5.40) m/uL Hgb 7.7 L 8.2 L (11.4-16.0) gm/dL Hct 25.3 L 26.1 L (34.0-46.0) % MCV 113.5 H 116.1 H (80.0-100.0) fL MCH 36.4 H (25.0-35.0) pg MCHC 30.6 L (31.0-37.0) g/dL RDW 22.6 H 22.6 H (11.5-15.5) % Plt Count 106 L 126 L (150-450) k/uL Macrocytosis Marked A Marked A Assessment and Plan (1) Pancytopenia Narrative/Plan: Workup shows no evidence of paraproteinemia. 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 This condition will persist and progress as long as patient drinks. Patient's counts have improved ever so slightly since admission, no acute ETOH ingestion. Recommendation is for cessation of alcohol. Continue to monitor counts. If further progression of pancytopneia despite ETOH cessation bone marrow biopsy and aspirate may be indicated but, not at this time. Current Visit: Yes Status: Acute Priority: High Code(s): D61.818 - OTHER PANCYTOPENIA SNOMED Code(s): 155475849
[2019-08-21 14:57] VITALS: BMI 21.4
--- NOTE | 2019-08-21 15:13 | PN ---
PROGRESS NOTE CHIEF COMPLAINT: Alcoholic hepatitis, cirrhosis, ascites and pancytopenia. HISTORY OF PRESENT ILLNESS: This lady is still quite pale. She is not feeling well. She has upper abdominal discomfort and her abdomen is a little bit more distended. PHYSICAL EXAMINATION: She remains pale and jaundiced. She is awake and alert. Chest is clear. Cardiac exam demonstrates her tachycardia. The abdomen is slightly more distended with ascites and she is tender over the liver, which is down about 2 inches from the costal margin. Bowel sounds are present. Extremities are normal. Neurologically she is intact. IMPRESSION: 1. Acute alcoholic hepatitis. 2. Chronic alcoholism. 3. Pancytopenia. PLAN: Continue with supportive care and continue to monitor laboratory studies. MMODL / IJN: [id number] /
[2019-08-21] MEDS: LORazepam 2 MG/ML INJ IV PRN (17:38)
[2019-08-22] MEDS: HYDROcodone/APAP 5-325MG 1 EACH TAB PO PRN ×3 (06:01→18:17)
[2019-08-22] MEDS: 1: MVI, ADULT NO.4 WITH VIT K 10 ML, THIAMINE 100 MG, FOLIC ACID 1 MG in SODIUM CHLORIDE IV SCH ×8 (06:28→18:52)
[2019-08-22] MEDS: THIAMINE 100 MG TAB PO SCH ×2 (08:37→18:17)
[2019-08-22] MEDS: PANTOPRAZOLE 40 MG TABLET PO SCH (08:37)
[2019-08-22] MEDS: LACTULOSE 20 GM/30 ML CUP PO SCH ×3 (08:38→20:52)
[2019-08-22] MEDS: POTAS-SOD-PHOS 278-164-250 MG 1 EACH PACKET PO SCH ×3 (08:41→23:22)
[2019-08-22] MEDS: MENTHOL (NICE) LOZENGE MUCOUS MEM PRN ×2 (10:02→18:19)
[2019-08-22] MEDS: LORazepam 2 MG/ML INJ IV PRN (20:59)
--- NOTE | 2019-08-23 00:58 | PN ---
PROGRESS NOTE CHIEF COMPLAINT: Alcoholism, alcoholic hepatitis, cirrhosis and ascites. HISTORY OF PRESENT ILLNESS: This lady is slowly improving. Her numbers are trending in the right direction every day. Hemoglobin, white count and platelets are slowly going up and liver function studies are improving. She stills feels very weak and anorexic. PHYSICAL EXAMINATION: She remains pale and slightly jaundice. Chest is clear. Cardiac exam demonstrates sinus tachycardia and the abdomen is slightly protuberant with ascites. IMPRESSION: 1. Acute alcoholic hepatitis. 2. Cirrhosis. 3. Ascites. 4. Pancytopenia. PLAN: Continue with current program. MMDAMIL / ROMEO: [id number] /
[2019-08-23] MEDS: 1: MVI, ADULT NO.4 WITH VIT K 10 ML, THIAMINE 100 MG, FOLIC ACID 1 MG in SODIUM CHLORIDE IV SCH ×12 (02:13→23:18)
[2019-08-23] MEDS: HYDROcodone/APAP 5-325MG 1 EACH TAB PO PRN ×4 (02:22→23:18)
[2019-08-23] MEDS: KETOROLAC 30 MG/ML 1 ML VIAL IVP PRN ×2 (05:37→21:39)
[2019-08-23 07:32] LABS: Anisocytosis Moderate; Basophils % (A) 0 %; Eosinophils # (A) 0.1 k/uL (0-0.7); Eosinophils % (A) 2 %; HCT 24.2 % (34.0-46.0); HGB 7.3 gm/dL (11.4-16.0); Hypochromasia Marked; Lymphocytes % (A) 21 %; MCH 35.3 pg (25.0-35.0); MCV 117.5 fL (80.0-100.0); Macrocytosis Marked; Mean Platelet Volume 9.3; Monocytes # (A) 0.3 k/uL (0-1.0); Monocytes % (A) 7 %; Neutrophils % (A) 67 %; Platelet Count 110 k/uL (150-450); Poikilocytosis Slight; RBC 2.06 m/uL (3.80-5.40); RDW 22.1 % (11.5-15.5); WBC 4.5 k/uL (3.8-10.6)
[2019-08-23] MEDS: PANTOPRAZOLE 40 MG TABLET PO SCH (08:31)
[2019-08-23] MEDS: LACTULOSE 20 GM/30 ML CUP PO SCH ×3 (08:32→21:40)
[2019-08-23] MEDS: POTAS-SOD-PHOS 278-164-250 MG 1 EACH PACKET PO SCH ×3 (08:32→21:40)
[2019-08-23] MEDS: THIAMINE 100 MG TAB PO SCH ×2 (08:33→17:58)
[2019-08-23] MEDS: LORazepam 2 MG/ML INJ IV PRN (12:21)
[2019-08-23] MEDS: MENTHOL (NICE) LOZENGE MUCOUS MEM PRN (17:58)
[2019-08-23] MEDS ORDERED: guaiFENesin SYRUP 100MG/5ML 200 MG/10 ML CUP PO PRN (18:01)
[2019-08-23] MEDS ORDERED: SPIRONOLACTONE 25 MG TAB PO STA (18:30)
--- NOTE | 2019-08-23 19:55 | PN ---
PROGRESS NOTE CHIEF COMPLAINT: Alcoholism and cirrhosis with pancytopenia. HISTORY OF PRESENT ILLNESS: This lady is slowly improving. Each day her numbers are improved. She is complaining of abdominal discomfort, however. This is probably due to her alcoholic hepatitis and ascites. PHYSICAL EXAMINATION: She remains pale. Chest is clear. The cardiac exam is normal. The abdomen is slightly distended and protuberant with ascites and she is slightly tender over the liver. IMPRESSION: 1. Alcoholic hepatitis. 2. Cirrhosis. 3. Pancytopenia. 4. Ascites. PLAN: Try adding Aldactone and continue with observation of the liver function studies and bone marrow. MMODL / IJN: [id number] /
[2019-08-24] MEDS: HYDROcodone/APAP 5-325MG 1 EACH TAB PO PRN ×3 (05:56→20:23)
[2019-08-24] MEDS: THIAMINE 100 MG TAB PO SCH ×2 (07:14→17:28)
[2019-08-24] MEDS: LACTULOSE 20 GM/30 ML CUP PO SCH ×3 (07:14→20:24)
[2019-08-24] MEDS: PANTOPRAZOLE 40 MG TABLET PO SCH (07:14)
[2019-08-24] MEDS: POTAS-SOD-PHOS 278-164-250 MG 1 EACH PACKET PO SCH ×3 (07:15→20:24)
[2019-08-24] MEDS: LORazepam 2 MG/ML INJ IV PRN ×2 (07:59→20:55)
--- NOTE | 2019-08-24 14:08 | P.PN ---
Subjective Progress Note Date: 08/24/19 CHIEF COMPLAINT: Recent hemorrhoidectomy HISTORY OF PRESENT ILLNESS: Patient examined at the bedside with Dr. Arthur. Denies abdominal pain. Reports small amount of bleeding only when wiping after using the bathroom. PHYSICAL EXAM: VITAL SIGNS: Reviewed. GENERAL: Well-developed in no acute distress. HEENT: Bilateral sclera icterus. Extraocular movements grossly intact. Moist buccal mucosa. Head is atraumatic, normocephalic. ABDOMEN: Soft. Nondistended. Nontender. NEUROLOGIC: Alert and oriented. Cranial nerves II through XII grossly intact. ASSESSMENT: 1. Rectal bleeding 2. Recent hemorrhoidectomy, July 2019 PLAN: Continue to monitor hemoglobin Alcohol abstinence recommended No surgical intervention recommended Nurse practitioner note has been reviewed by physician. Signing provider agrees with the documented findings, assessment, and plan of care. Objective - Vital Signs Vital signs: Vital Signs Temp 98 F 08/24/19 04:30 Pulse 104 H 08/24/19 04:30 Resp 20 08/24/19 04:30 BP 101/68 08/24/19 04:30 Pulse Ox 92 L 08/24/19 04:30 Intake & Output 08/23/19 08/24/19 08/24/19 18:59 06:59 18:59 Intake Total 950 1111.2 1250 Balance 950 1111.2 1250 Intake: IV 800 Mvi, Adult No.4 with Vit 800 K 10 ml Thiamine 100 mg Folic Acid 1 mg In Sodium Chloride 0.9% 1,000 ml @ 100 mls/hr IV .BY DURATION [facility] Rx#: [id number] Intake, IV Titration 1011.2 Amount Mvi, Adult No.4 with Vit 1011.2 K 10 ml Thiamine 100 mg Folic Acid 1 mg In Sodium Chloride 0.9% 1,000 ml @ 100 mls/hr IV .BY DURATION [facility] Rx#: [id number] Oral 950 100 450 Other: Voiding Method Toilet Toilet Toilet Bedside Commode Bedside Commode # Voids 3 2 2 # Bowel Movements 2 1 - Labs CBC & Chem 7: 08/23/19 06:57 08/20/19 06:30
[2019-08-24] MEDS: 1: MVI, ADULT NO.4 WITH VIT K 10 ML, THIAMINE 100 MG, FOLIC ACID 1 MG in SODIUM CHLORIDE IV SCH ×8 (14:13→20:55)
--- NOTE | 2019-08-24 23:23 | PN ---
PROGRESS NOTE CHIEF COMPLAINT: Cirrhosis. HISTORY OF PRESENT ILLNESS: This lady is about the same. She still remains quite depressed and she is still having some abdominal discomfort. REVIEW OF SYSTEMS: She denies nausea, vomiting, shortness of breath, etc. PHYSICAL EXAMINATION: She remains pales and slightly jaundiced. Chest is clear. Cardiac exam is normal. The abdomen is distended slightly with ascites and liver was enlarged and slightly tender. Extremities are normal. IMPRESSION: 1. Alcoholic hepatitis. 2. Cirrhosis. 3. Ascites. 4. Alcoholism. 5. Depression. PLAN: Continue with current program and, I understand that there is a bed at [facility] for her tomorrow and we will discharge her then. MMODL / IJN: [id number] /
[2019-08-25] MEDS: LORazepam 2 MG/ML INJ IV PRN (00:54)
[2019-08-25] MEDS: KETOROLAC 30 MG/ML 1 ML VIAL IVP PRN (00:54)
[2019-08-25 04:46] VITALS: BP 102/65; PULSE 110; TEMP 98.2
[2019-08-25] MEDS: 1: MVI, ADULT NO.4 WITH VIT K 10 ML, THIAMINE 100 MG, FOLIC ACID 1 MG in SODIUM CHLORIDE IV SCH ×4 (06:08)
[2019-08-25] MEDS: THIAMINE 100 MG TAB PO SCH (08:19)
[2019-08-25] MEDS: POTAS-SOD-PHOS 278-164-250 MG 1 EACH PACKET PO SCH (08:19)
[2019-08-25] MEDS: PANTOPRAZOLE 40 MG TABLET PO SCH (08:19)
[2019-08-25] MEDS: HYDROcodone/APAP 5-325MG 1 EACH TAB PO PRN ×2 (08:19→12:03)
[2019-08-25] MEDS: LACTULOSE 20 GM/30 ML CUP PO SCH (08:20)
[2019-08-25 09:00] LABS: Anisocytosis Moderate; Basophils % (A) 0 %; Eosinophils # (A) 0.1 k/uL (0-0.7); Eosinophils % (A) 2 %; HCT 24.9 % (34.0-46.0); HGB 7.5 gm/dL (11.4-16.0); Hypochromasia Marked; Lymphocytes % (A) 25 %; MCH 34.3 pg (25.0-35.0); MCHC 29.9 g/dL (31.0-37.0); MCV 114.5 fL (80.0-100.0); Macrocytosis Marked; Mean Platelet Volume 10.5; Monocytes # (A) 0.3 k/uL (0-1.0); Monocytes % (A) 7 %; Neutrophils # (A) 2.6 k/uL (1.3-7.7); Neutrophils % (A) 64 %; Platelet Count 138 k/uL (150-450); RBC 2.18 m/uL (3.80-5.40); RDW 21.2 % (11.5-15.5)
[2019-08-25 09:26] LABS: INR 1.2 (<1.2); Prothrombin Time 11.8 sec (9.0-12.0)
[2019-08-25 10:00] LABS: ALT 11 U/L (4-34); AST 72 U/L (14-36); African American GFR (CKD) >90 (>60 ml/min/1.73 sqM); Alkaline Phosphatase 164 U/L (38-126); Anion Gap 5 mmol/L; Blood Urea Nitrogen 4 mg/dL (7-17); Calcium 7.7 mg/dL (8.4-10.2); Carbon Dioxide 22 mmol/L (22-30); Chloride 113 mmol/L (98-107); Glucose 79 mg/dL (74-99); Non-African American GFR(CKD) >90 (>60 ml/min/1.73 sqM); Sodium 140 mmol/L (137-145); Total Protein 4.9 g/dL (6.3-8.2)
[2019-08-25] MEDS: MENTHOL (NICE) LOZENGE MUCOUS MEM PRN (10:00)
[2019-08-25 10:13] VITALS: RESP 18
--- NOTE | 2019-08-25 12:54 | DS ---
DISCHARGE SUMMARY CHIEF COMPLAINT: Hepatic failure, alcoholism and alcoholic hepatitis. HISTORY OF PRESENT ILLNESS AND PHYSICAL EXAM: Details of this lady's history and physical can be found in the initial workup. LABORATORY STUDIES: While she was in a hospital she had laboratory studies, details of which can be found in the laboratory section of her chart. COURSE IN HOSPITAL: After admission, she was placed on bedrest, started on intravenous fluids and liver enzymes were monitored closely as well as her bone marrow function. Red cells, platelets and white blood cells slowly [place] during hospitalization and her liver function studies gradually improved. She did not frankly go into DTs. She remained quite depressed during her hospitalization. She had some significant upper abdominal pain which was felt likely to be due to her hepatitis and she did develop ascites. She was started on Aldactone and she was stabilizing and it was felt she was doing well enough that she could go to [place]. FINAL DIAGNOSES: 1. Acute alcoholic hepatitis. 2. Chronic alcoholism. 3. Cirrhosis. 4. Ascites. 5. Pancytopenia. OPERATIONS: None. CONSULTATION: None. She is improved. MMODL / IJN: [id number] /
== END 2019-08-25 12:13 | disposition home or self-care (01) | DRG 433 ==
LOC: EC 07:56 → 3SCARD 10:25 → 6NMEDSUR 08-20 11:01
PROVIDERS: ADMIT Family Medicine; ATTEND Family Medicine
DX: K70.11 Alcoholic hepatitis with ascites (principal); D61.818 Other pancytopenia; K62.5 Hemorrhage of anus and rectum; F10.288 Alcohol dependence with other alcohol-induced disorder; K76.6 Portal hypertension; K70.31 Alcoholic cirrhosis of liver with ascites; E86.0 Dehydration; E87.6 Hypokalemia; F17.200 Nicotine dependence, unspecified, uncomplicated; F32.9 Major depressive disorder, single episode, unspecified; K29.70 Gastritis, unspecified, without bleeding; K64.8 Other hemorrhoids; K72.90 Hepatic failure, unspecified without coma; Z82.49 Family history of ischemic heart disease and other diseases of the circulatory system; Z83.3 Family history of diabetes mellitus; Z87.442 Personal history of urinary calculi
CPT/HCPCS: 36415; 71046; 71275; 80048; 80053; 81001; 82103; 82105; 82140; 82390; 82550; 82728; 83516; 83540; 83550; 83605; 83690; 83735; 83883; 83921; 84100; 84132; 84165; 84443; 84484; 85025; 85027; 85379; 85610; 85730; 86038; 86334; 86376; 86850; 86870; 86880; 86900; 86901; 86902; 86920; 93005; 94760; 96361; 96365; 96366; 96374; 99291

== ENCOUNTER 2020-01-01 11:40 | Observation (INO) | payer OTHER ==
[2020-01-01] MEDS ORDERED: SODIUM CHLORIDE 0.9% 500 ML 500 ML IV STA (12:06)
[2020-01-01] MEDS ORDERED: SODIUM CHLORIDE 0.9% 1,000 ML IV STA (12:06)
[2020-01-01] MEDS ORDERED: ONDANSETRON 4 MG/2 ML VIAL IVP STA (12:06)
[2020-01-01] MEDS ORDERED: FAMOTIDINE 20 MG/2 ML VIAL IV STA (12:07)
--- NOTE | 2020-01-01 12:10 | ED ---
Abdominal Pain HPI - General Chief Complaint: Abdominal Pain Stated Complaint: Vomiting Time Seen by Provider: 01/01/20 11:54 Source: patient Mode of arrival: ambulatory Limitations: no limitations - History of Present Illness Initial Comments: 39-year-old female patient presents to the emergency department today for evaluation of nausea and vomiting. Patient states his been going on for the last 4 days. States she is unable to keep down any food or fluids. She is reporting a burning sensation from her midepigastric region up to her neck. States she feels like the lump in her throat. She denies any abdominal pain. States she is having mucousy bowel movements. States she has had appendectomy in the past. No other abdominal surgeries. Denies any hematemesis, hematochezia, or melena. Denies any new medications. Does admit to smoking mar taylora on a daily basis and has for a number of years. Patient denies any recent rash, fever, chills, cough, shortness of breath, chest pain, back pain, numbness, tingling, dizziness, weakness, hematuria, dysuria, urinary urgency, urinary frequency, headache, visual changes, or any other complaints. - Related Data Home Medications Medication Instructions Recorded Confirmed Acetaminophen/Diphenhydramine 2 tab PO HS 01/01/20 01/01/20 [Tylenol PM 500-25mg] Famotidine [Pepcid AC] 10 mg PO TID PRN 01/01/20 01/01/20 Allergies Allergy/AdvReac Type Severity Reaction Status Date / Time cephalexin monohydrate Allergy Rash/Hives Verified 01/01/20 12:25 [From Keflex] codeine Allergy Rash/Hives Verified 01/01/20 12:25 Review of Systems ROS Statement: Those systems with pertinent positive or pertinent negative responses have been documented in the HPI. ROS Other: All systems not noted in ROS Statement are negative. Past Medical History Past Medical History: GERD/Reflux Additional Past Medical History / Comment(s): Hepatic steatosis, ETOH abuse, gastritis, duodenitis, lower GI bleed, colitis, hemorrhoids, bronchitis, R side nephrolithiasis with surgery, bilateral ovarian cysts, neuropathy bilateral hands/legs and tops of both feet, hypokalemia, hypoalbumenemia, pancytopenia. History of Any Multi-Drug Resistant Organisms: None Reported Past Surgical History: Appendectomy, Orthopedic Surgery Additional Past Surgical History / Comment(s): Left knee surgeries-3 arthroscopic and one open, EGDs, colonoscopies, R sided lithotripsy. Past Anesthesia/Blood Transfusion Reactions: No Reported Reaction Additional Past Anesthesia/Blood Transfusion Reaction / Comment(s): Pt has received blood in past without reaction. Past Psychological History: Depression Smoking Status: Current every day smoker Past Alcohol Use History: Occasional Past Drug Use History: Marijuana - Past Family History Mother Family Medical History: Diabetes Mellitus Additional Family Medical History / Comment(s): Borderline HTN Brother(s) Family Medical History: Diabetes Mellitus Father Family Medical History: Hypertension Additional Family Medical History / Comment(s): BOARDERLINE DM General Exam Limitations: no limitations General appearance: alert, in no apparent distress, other (This is a well- developed, well-nourished adult female patient in no acute distress. Vital signs upon presentation are temperature 98.4F, pulse 128, respirations 16, blood pressure 119/68, pulse ox 97% on room air) Respiratory exam: Present: normal lung sounds bilaterally. Absent: respiratory distress, wheezes, rales, rhonchi, stridor Cardiovascular Exam: Present: regular rate, normal rhythm, normal heart sounds. Absent: systolic murmur, diastolic murmur, rubs, gallop, clicks GI/Abdominal exam: Present: soft, normal bowel sounds. Absent: distended, tenderness, guarding, rebound, rigid Neurological exam: Present: alert, oriented X3, CN II-XII intact Psychiatric exam: Present: normal affect, normal mood Skin exam: Present: warm, dry, intact, normal color. Absent: rash Course Vital Signs 01/01/20 01/01/20 11:42 12:26 Temperature 98.4 F Pulse Rate 128 H 93 Respiratory 16 Rate Blood Pressure 119/68 O2 Sat by Pulse 97 Oximetry Medical Decision Making - Medical Decision Making 39-year-old female patient presents to the emergency department today for evaluation of nausea and vomiting for the last 4 days. Patient does have history of alcohol abuse last drink was yesterday. Physical examination was relatively unremarkable. Abdomen is soft and nontender. She is afebrile. She is tachycardic upon arrival. Labs reviewed and did reveal elevated lactic acid at 5.2 and decreased potassium at 2.6. Potassium protocol has been ordered. Patient will be admitted to the hospital for IV hydration, intractable vomiting, and hypokalemia. Patient did have ST depression noted on EKG, this is consistent with previous EKG from August. Alcohol withdrawal protocol has been ordered. Tigan will be ordered for nausea as there is prolonged QT interval on her EKG. - Lab Data Result diagrams: 01/01/20 12:08 01/01/20 12:08 Lab Results 01/01/20 01/01/20 01/01/20 Range/Units 12:08 12:08 12:08 WBC 6.5 (3.8-10.6) k/uL RBC 3.25 L (3.80-5.40) m/uL Hgb 13.1 (11.4-16.0) gm/dL Hct 39.7 (34.0-46.0) % MCV 122.4 H (80.0-100.0) fL MCH 40.5 H (25.0-35.0) pg MCHC 33.1 (31.0-37.0) g/dL RDW 15.6 H (11.5-15.5) % Plt Count 107 L (150-450) k/uL Neutrophils % 79 % Lymphocytes % 14 % Monocytes % 4 % Eosinophils % 2 % Basophils % 0 % Neutrophils # 5.2 (1.3-7.7) k/uL Lymphocytes # 0.9 L (1.0-4.8) k/uL Monocytes # 0.2 (0-1.0) k/uL Eosinophils # 0.1 (0-0.7) k/uL Basophils # 0.0 (0-0.2) k/uL Manual Slide Review Performed Macrocytosis Marked A Sodium 133 L (137-145) mmol/L Potassium 2.6 L* (3.5-5.1) mmol/L Chloride 81 L (98-107) mmol/L Carbon Dioxide 32 H (22-30) mmol/L Anion Gap 20 mmol/L BUN 9 (7-17) mg/dL Creatinine 0.55 (0.52-1.04) mg/dL Est GFR (CKD-EPI)AfAm >90 (>60 ml/min/1.73 sqM) Est GFR (CKD-EPI)NonAf >90 (>60 ml/min/1.73 sqM) Glucose 139 H (74-99) mg/dL Plasma Lactic Acid Paulino (0.7-2.0) mmol/L Calcium 9.5 (8.4-10.2) mg/dL Magnesium (1.6-2.3) mg/dL Total Bilirubin 3.5 H (0.2-1.3) mg/dL AST 151 H (14-36) U/L ALT 32 (4-34) U/L Alkaline Phosphatase 317 H (38-126) U/L Troponin I (0.000-0.034) ng/mL Total Protein 8.9 H (6.3-8.2) g/dL Albumin 4.7 (3.5-5.0) g/dL Amylase 40 (30-110) U/L Lipase 86 (23-300) U/L Urine Color Dark Brown Urine Appearance Cloudy H (Clear) Urine pH 6.5 (5.0-8.0) Ur Specific [place] [employer] 1.028 (1.001-1.035) Urine Protein 1+ H (Negative) Urine Glucose (UA) Negative (Negative) Urine Ketones Trace H (Negative) Urine Blood Small H (Negative) Urine Nitrite Negative (Negative) Urine Bilirubin 1+ H (Negative) Urine Urobilinogen 8.0 (<2.0) mg/dL Ur Leukocyte Esterase Small H (Negative) Urine RBC 3 (0-5) /hpf Urine WBC 6 H (0-5) /hpf Ur Squamous Epith Cells 19 H (0-4) /hpf Urine Mucus Many H (None) /hpf 01/01/20 01/01/20 01/01/20 Range/Units 12:08 12:08 12:19 WBC (3.8-10.6) k/uL RBC (3.80-5.40) m/uL Hgb (11.4-16.0) gm/dL Hct (34.0-46.0) % MCV (80.0-100.0) fL MCH (25.0-35.0) pg MCHC (31.0-37.0) g/dL RDW (11.5-15.5) % Plt Count (150-450) k/uL Neutrophils % % Lymphocytes % % Monocytes % % Eosinophils % % Basophils % % Neutrophils # (1.3-7.7) k/uL Lymphocytes # (1.0-4.8) k/uL Monocytes # (0-1.0) k/uL Eosinophils # (0-0.7) k/uL Basophils # (0-0.2) k/uL Manual Slide Review Macrocytosis Sodium (137-145) mmol/L Potassium (3.5-5.1) mmol/L Chloride (98-107) mmol/L Carbon Dioxide (22-30) mmol/L Anion Gap mmol/L BUN (7-17) mg/dL Creatinine (0.52-1.04) mg/dL Est GFR (CKD-EPI)AfAm (>60 ml/min/1.73 sqM) Est GFR (CKD-EPI)NonAf (>60 ml/min/1.73 sqM) Glucose (74-99) mg/dL Plasma Lactic Acid Paulino 5.2 H* (0.7-2.0) mmol/L Calcium (8.4-10.2) mg/dL Magnesium 1.9 (1.6-2.3) mg/dL Total Bilirubin (0.2-1.3) mg/dL AST (14-36) U/L ALT (4-34) U/L Alkaline Phosphatase (38-126) U/L Troponin I <0.012 (0.000-0.034) ng/mL Total Protein (6.3-8.2) g/dL Albumin (3.5-5.0) g/dL Amylase (30-110) U/L Lipase (23-300) U/L Urine Color Urine Appearance (Clear) Urine pH (5.0-8.0) Ur Specific [place] [employer] (1.001-1.035) Urine Protein (Negative) Urine Glucose (UA) (Negative) Urine Ketones (Negative) Urine Blood (Negative) Urine Nitrite (Negative) Urine Bilirubin (Negative) Urine Urobilinogen (<2.0) mg/dL Ur Leukocyte Esterase (Negative) Urine RBC (0-5) /hpf Urine WBC (0-5) /hpf Ur Squamous Epith Cells (0-4) /hpf Urine Mucus (None) /hpf - EKG Data -: EKG Interpreted by Tx EKG Comments: EKG obtained at 1221 shows normal sinus rhythm with a ventricular rate of 93, DC interval 112, QR buddhism 84, QTC 418, QTC 519. There is some ST elevation noted in aVR, ST depression noted in V4, V5, V6, this is consistent with previous EKG obtained on 08/17/2019. - Radiology Data Radiology results: report reviewed, image reviewed KUB x-ray is obtained. Report was reviewed in its entirety. Impression by Dr. Monroy shows overall nonobstructive bowel gas pattern. Disposition Clinical Impression: Intractable vomiting, Hypokalemia, Dehydration, Lactic acidosis Disposition: ADMITTED IP TO THIS [facility] Condition: Serious Referrals: None,Stated [Primary Care Provider] - 1-2 days Decision to Admit Reason: Admit from EC Decision Date: 01/01/20 Decision Time: 13:50
[2020-01-01 12:36] LABS: Basophils % (A) 0 %; Eosinophils # (A) 0.1 k/uL (0-0.7); Eosinophils % (A) 2 %; HCT 39.7 % (34.0-46.0); HGB 13.1 gm/dL (11.4-16.0); Lymphocytes # (A) 0.9 k/uL (1.0-4.8); Lymphocytes % (A) 14 %; MCH 40.5 pg (25.0-35.0); MCHC 33.1 g/dL (31.0-37.0); MCV 122.4 fL (80.0-100.0); Macrocytosis Marked; Mean Platelet Volume 8.7; Monocytes # (A) 0.2 k/uL (0-1.0); Monocytes % (A) 4 %; Neutrophils # (A) 5.2 k/uL (1.3-7.7); Neutrophils % (A) 79 %; Platelet Count 107 k/uL (150-450); RBC 3.25 m/uL (3.80-5.40); RDW 15.6 % (11.5-15.5); WBC 6.5 k/uL (3.8-10.6)
--- NOTE | 2020-01-01 12:43 | XR ---
EXAMINATION TYPE: XR KUB DATE OF EXAM: 01/01/2020 COMPARISON: NONE HISTORY: Pain TECHNIQUE: Single supine KUB image of the abdomen is obtained FINDINGS: Small bowel demonstrates no evidence for dilatation or air fluid levels. Gas and fecal material is seen in non-distended colon. No convincing evidence for pneumoperitoneum. There is evidence of hepatosplenomegaly. No unusual calcifications. The lung bases are clear. The osseous structures are intact. IMPRESSION: 1. Overall nonobstructive bowel gas pattern.
[2020-01-01 12:44] LABS: ALT 32 U/L (4-34); AST 151 U/L (14-36); African American GFR (CKD) >90 (>60 ml/min/1.73 sqM); Albumin 4.7 g/dL (3.5-5.0); Alkaline Phosphatase 317 U/L (38-126); Amylase 40 U/L (30-110); Anion Gap 20 mmol/L; Blood Urea Nitrogen 9 mg/dL (7-17); Calcium 9.5 mg/dL (8.4-10.2); Carbon Dioxide 32 mmol/L (22-30); Chloride 81 mmol/L (98-107); Glucose 139 mg/dL (74-99); Non-African American GFR(CKD) >90 (>60 ml/min/1.73 sqM); Sodium 133 mmol/L (137-145); Total Bilirubin 3.5 mg/dL (0.2-1.3); Total Protein 8.9 g/dL (6.3-8.2)
[2020-01-01 12:47] LABS: Appearance,Urine Cloudy (Clear); Bilirubin,Urine 1+ (Negative); Blood,Urine Small (Negative); Color,Urine Dark Brown; Glucose,Urine (UA) Negative (Negative); Ketones,Urine Trace (Negative); Leukocyte Esterase,Urine Small (Negative); Mucus,Urine Many /hpf; Nitrite,Urine Negative (Negative); PH, Urine 6.5 (5.0-8.0); Protein,Urine 1+ (Negative); RBC,Urine 3 /hpf (0-5); Specific Gravity,Urine 1.028 (1.001-1.035); Squamous Epithelial Cell,Urine 19 /hpf (0-4); WBC,Urine 6 /hpf (0-5)
[2020-01-01 12:48] LABS: Potassium 2.6 mmol/L (3.5-5.1)
[2020-01-01] MEDS ORDERED: Potassium Replacement Protocol 1 EACH MISC MISCELLANE PRN (12:48)
[2020-01-01] MEDS ORDERED: diphenhydrAMINE 50 MG/ML 1 ML VIAL IVP STA (13:12)
[2020-01-01] MEDS ORDERED: METOCLOPRAMIDE 5 MG/ML 2 ML VIAL IVP STA (13:12)
[2020-01-01] MEDS ORDERED: TRIMETHOBENZAMIDE 100 MG/ML 2 ML VIAL IM STA (13:42)
[2020-01-01] MEDS ORDERED: NALOXONE 0.4 MG/ML 1 ML VIAL IV PRN ×2 (13:43→16:33)
[2020-01-01] MEDS ORDERED: LORazepam 2 MG/ML INJ IV PRN ×3 (13:45)
[2020-01-01] MEDS ORDERED: THIAMINE 100 MG/ML 2 ML VIAL IM STA (13:45)
[2020-01-01] MEDS ORDERED: TRIMETHOBENZAMIDE 100 MG/ML 2 ML VIAL IM PRN (13:45)
[2020-01-01] MEDS: POTASSIUM CHLORIDE 20 MEQ in WATER FOR INJECTION 1 100ML.BAG IVPB SCH ×3 (13:54→21:55)
--- NOTE | 2020-01-01 13:59 | XR ---
EXAMINATION TYPE: XR soft tissue neck DATE OF EXAM: 01/01/2020 COMPARISON: Cervical spine 01/10/2016 HISTORY: Feels like something is stuck in her throat TECHNIQUE: 2 views of the soft tissues of the neck are submitted. FINDINGS: The airway is patent. Normal appearing epiglottis. Retropharyngeal soft tissues are withi n normal limits. No evidence for radiopaque foreign body. IMPRESSION: Negative study
[2020-01-01] MEDS ORDERED: MAG HYDROX/AL HYDROX/SIMETH 30 ML CUP PO PRN (16:35)
[2020-01-01] MEDS ORDERED: ONDANSETRON 4 MG/2 ML VIAL IVP PRN (16:41)
--- NOTE | 2020-01-01 16:46 | P.HPIM ---
History of Present Illness H&P Date: 01/01/20 Chief Complaint: Vomiting 39-year-old female with history of alcoholism presents to the emergency department today for evaluation of nausea and vomiting. Patient states his been going on for the last 4 days. States she is unable to keep down any food or fluids. She is reporting a burning sensation from her midepigastric region up to her neck. She has been also having some diffuse abdominal pain especially in the epigastric region. Patient has also been having increasingly frequent and loose bowel movements. Denies any hematemesis, hematochezia, or melena. Denies any new medications. She states that she cut down on drinking significantly because she knows she has liver damage from the drinking. Does admit to smoking marijuana on a daily basis and has for a number of years. Patient denies any recent rash, fever, chills, cough, shortness of breath, chest pain, back pain, dysuria, urinary urgency, urinary frequency, headache, visual changes, or any other complaints. Review of Systems Complete review of system performed, pertinent positives per HPI, otherwise negative Past Medical History Past Medical History: GERD/Reflux Additional Past Medical History / Comment(s): Hepatic steatosis, ETOH abuse, gastritis, duodenitis, lower GI bleed, colitis, hemorrhoids, bronchitis, R side nephrolithiasis with surgery, bilateral ovarian cysts, neuropathy bilateral hands/legs and tops of both feet, hypokalemia, hypoalbumenemia, pancytopenia. History of Any Multi-Drug Resistant Organisms: None Reported Past Surgical History: Appendectomy, Orthopedic Surgery Additional Past Surgical History / Comment(s): Left knee surgeries-3 arthroscopic and one open, EGDs, colonoscopies, R sided lithotripsy. Past Anesthesia/Blood Transfusion Reactions: No Reported Reaction Additional Past Anesthesia/Blood Transfusion Reaction / Comment(s): Pt has received blood in past without reaction. Past Psychological History: Depression Smoking Status: Current every day smoker Past Alcohol Use History: Occasional Past Drug Use History: Marijuana - Past Family History Mother Family Medical History: Diabetes Mellitus Additional Family Medical History / Comment(s): Borderline HTN Brother(s) Family Medical History: Diabetes Mellitus Father Family Medical History: Hypertension Additional Family Medical History / Comment(s): BOARDERLINE DM Medications and Allergies Home Medications Medication Instructions Recorded Confirmed Type Acetaminophen/Diphenhydramine 2 tab PO HS 01/01/20 01/01/20 History [Tylenol PM 500-25mg] Famotidine [Pepcid AC] 10 mg PO TID PRN 01/01/20 01/01/20 History Allergies Allergy/AdvReac Type Severity Reaction Status Date / Time cephalexin monohydrate Allergy Rash/Hives Verified 01/01/20 12:25 [From Keflex] codeine Allergy Rash/Hives Verified 01/01/20 12:25 Physical Exam Vitals: Vital Signs Temp Pulse Resp BP Pulse Ox 01/01/20 14:01 94 16 109/73 97 01/01/20 12:26 93 01/01/20 11:42 98.4 F 128 H 16 119/68 97 Intake and Output 01/01/20 01/01/20 01/01/20 06:59 14:59 22:59 Other: Weight 49.895 kg Constitutional: No acute distress, conversant, pleasant Eyes:Anicteric sclerae, moist conjunctiva, no lid-lag, PERRLA, ENMT: Oropharynx clear, no erythema, exudates Neck: Supple, FROM, no masses, or JVD, No carotid bruits, No thyromegaly Lungs: Clear to auscultation, Clear to percussion, Normal respiratory effort, no accessory muscle use Cardiovascular: Heart regular in rate and rhythm, No murmurs, gallops, or rubs, No peripheral edema Abdominal: Soft, severely tender in the epigastric area, no guarding, rebound or rigidity, Normoactive bowel sounds, No hepatomegaly, No splenomegaly, No palpable mass Skin: Normal temperature, tone, texture, turgor, no induration, No subcutaneous nodules, No rash, lesions, No ulcers Extremities: No digital cyanosis, No clubbing, Pedal pulses intact and symmetrical, Radial pulses intact and symmetrical, No calf tenderness Psychiatric: Alert and oriented to person, place and time, appropriate affect, intact judgement Neuro: Muscles Strength 5/5 in all 4 extremities, Sensation to light touch senthil ssly present throughout, Cranial nerves II-XII grossly intact, no focal sensory deficits Results CBC & Chem 7: 01/01/20 12:08 01/01/20 12:08 Labs: Abnormal Lab Results - Last 24 Hours (Table) 01/01/20 01/01/20 01/01/20 Range/Units 12:08 12:08 12:08 RBC 3.25 L (3.80-5.40) m/uL MCV 122.4 H (80.0-100.0) fL MCH 40.5 H (25.0-35.0) pg RDW 15.6 H (11.5-15.5) % Plt Count 107 L (150-450) k/uL Lymphocytes # 0.9 L (1.0-4.8) k/uL Macrocytosis Marked A Sodium 133 L (137-145) mmol/L Potassium 2.6 L* (3.5-5.1) mmol/L Chloride 81 L (98-107) mmol/L Carbon Dioxide 32 H (22-30) mmol/L Glucose 139 H (74-99) mg/dL Plasma Lactic Acid Paulino (0.7-2.0) mmol/L Total Bilirubin 3.5 H (0.2-1.3) mg/dL AST 151 H (14-36) U/L Alkaline Phosphatase 317 H (38-126) U/L Total Protein 8.9 H (6.3-8.2) g/dL Urine Appearance Cloudy H (Clear) Urine Protein 1+ H (Negative) Urine Ketones Trace H (Negative) Urine Blood Small H (Negative) Urine Bilirubin 1+ H (Negative) Ur Leukocyte Esterase Small H (Negative) Urine WBC 6 H (0-5) /hpf Ur Squamous Epith Cells 19 H (0-4) /hpf Urine Mucus Many H (None) /hpf 01/01/20 Range/Units 12:19 RBC (3.80-5.40) m/uL MCV (80.0-100.0) fL MCH (25.0-35.0) pg RDW (11.5-15.5) % Plt Count (150-450) k/uL Lymphocytes # (1.0-4.8) k/uL Macrocytosis Sodium (137-145) mmol/L Potassium (3.5-5.1) mmol/L Chloride (98-107) mmol/L Carbon Dioxide (22-30) mmol/L Glucose (74-99) mg/dL Plasma Lactic Acid Paulino 5.2 H* (0.7-2.0) mmol/L Total Bilirubin (0.2-1.3) mg/dL AST (14-36) U/L Alkaline Phosphatase (38-126) U/L Total Protein (6.3-8.2) g/dL Urine Appearance (Clear) Urine Protein (Negative) Urine Ketones (Negative) Urine Blood (Negative) Urine Bilirubin (Negative) Ur Leukocyte Esterase (Negative) Urine WBC (0-5) /hpf Ur Squamous Epith Cells (0-4) /hpf Urine Mucus (None) /hpf Assessment and Plan Plan: Intractable nausea and vomiting Could be secondary to peptic ulcer disease versus alcohol induced gastritis versus cyclical vomiting syndrome due to marijuana use IV fluids Zofran when necessary for nausea and vomiting Start Protonix 40 mg IV twice a day Mylanta when necessary Alcohol and marijuana abuse ETOH withdrawal protocol Patient was counseled to quit Hyponatremia/dehydration IV fluids Follow in am Hypokalemia Replace Follow in am Admitted to observation expected length of stay less than 2 midnights Anticipated discharge: 1-2 days Dispo: likely home
[2020-01-01] MEDS: LACTATED RINGERS 1,000 ML IV SCH (21:55)
[2020-01-01] MEDS: THIAMINE 100 MG TAB PO SCH (21:56)
[2020-01-01] MEDS: PANTOPRAZOLE 40 MG/10 ML VIAL IVP SCH (21:56)
[2020-01-01] MEDS: BENZOCAINE/MENTHOL LOZENG 1 EACH LOZENGE MUCOUS MEM PRN (22:09)
[2020-01-01] MEDS ORDERED: diphenhydrAMINE 25 MG CAP PO STA (23:39)
[2020-01-02] MEDS: BENZOCAINE/MENTHOL LOZENG 1 EACH LOZENGE MUCOUS MEM PRN ×2 (02:50→09:42)
[2020-01-02] MEDS: LACTATED RINGERS 1,000 ML IV SCH ×2 (06:32→18:00)
[2020-01-02] MEDS: THIAMINE 100 MG TAB PO SCH ×2 (06:32→18:00)
[2020-01-02 08:56] LABS: HCT 31.8 % (34.0-46.0); HGB 10.2 gm/dL (11.4-16.0); MCH 40.6 pg (25.0-35.0); MCV 127.1 fL (80.0-100.0); Macrocytosis Marked; Mean Platelet Volume 8.8; RDW 15.6 % (11.5-15.5); WBC 3.2 k/uL (3.8-10.6)
[2020-01-02 09:02] LABS: ALT 20 U/L (4-34); AST 83 U/L (14-36); African American GFR (CKD) >90 (>60 ml/min/1.73 sqM); Albumin 2.8 g/dL (3.5-5.0); Alkaline Phosphatase 176 U/L (38-126); Anion Gap 7 mmol/L; Blood Urea Nitrogen 7 mg/dL (7-17); Calcium 7.9 mg/dL (8.4-10.2); Carbon Dioxide 30 mmol/L (22-30); Chloride 99 mmol/L (98-107); Glucose 116 mg/dL (74-99); Magnesium 1.8 mg/dL (1.6-2.3); Non-African American GFR(CKD) >90 (>60 ml/min/1.73 sqM); Sodium 136 mmol/L (137-145); Total Bilirubin 2.2 mg/dL (0.2-1.3); Total Protein 5.9 g/dL (6.3-8.2)
[2020-01-02 09:19] LABS: Potassium 2.7 mmol/L (3.5-5.1)
[2020-01-02] MEDS: ACETAMINOPHEN TAB 325 MG TAB PO PRN (09:42)
[2020-01-02] MEDS: PANTOPRAZOLE 40 MG/10 ML VIAL IVP SCH ×2 (09:43→21:12)
[2020-01-02] MEDS ORDERED: POTASSIUM CHLORIDE ER 20 MEQ TAB.ER PO STA (10:30)
[2020-01-02] MEDS ORDERED: POTASSIUM CHLORIDE 10 MEQ in WATER FOR INJECTION 1 100ML.BAG IVPB STA (10:30)
--- NOTE | 2020-01-02 10:35 | P.PN ---
Subjective Progress Note Date: 01/02/20 Principal diagnosis: Intractable vomiting Patient has been having diarrhea since last night. She states she always have intermittent diarrhea but not that bad. No significant vomiting. No fevers or chills. She is also complaining from some cramps in the abdomen. Objective - Vital Signs Vital signs: Vital Signs Temp 98.1 F 01/02/20 08:00 Pulse 90 01/02/20 08:00 Resp 16 01/02/20 08:00 BP 104/67 01/02/20 08:00 Pulse Ox 98 01/02/20 08:00 Intake & Output 01/01/20 01/02/20 01/02/20 18:59 06:59 18:59 Intake Total 672 120 Balance 672 120 Weight 49.895 kg 48.9 kg Intake: Oral 672 120 Other: Voiding Method Toilet Toilet # Voids 1 # Bowel Movements 0 - Exam Constitutional: No acute distress, conversant, pleasant Eyes:Anicteric sclerae, moist conjunctiva, no lid-lag, PERRLA, ENMT: Oropharynx clear, no erythema, exudates Neck: Supple, FROM, no masses, or JVD, No carotid bruits, No thyromegaly Lungs: Clear to auscultation, Clear to percussion, Normal respiratory effort, no accessory muscle use Cardiovascular: Heart regular in rate and rhythm, No murmurs, gallops, or rubs, No peripheral edema Abdominal: Soft, tender, no guarding, rebound or rigidity, Normoactive bowel sounds, No hepatomegaly, No splenomegaly, No palpable mass Skin: Normal temperature, tone, texture, turgor, no induration, No subcutaneous nodules, No rash, lesions, No ulcers Extremities: No digital cyanosis, No clubbing, Pedal pulses intact and symmetrical, Radial pulses intact and symmetrical, No calf tenderness Psychiatric: Alert and oriented to person, place and time, appropriate affect, intact judgement Neuro: Muscles Strength 5/5 in all 4 extremities, Sensation to light touch grossly present throughout, Cranial nerves II-XII grossly intact, no focal sensory deficits - Labs CBC & Chem 7: 01/02/20 07:48 01/02/20 07:48 Labs: Abnormal Lab Results - Last 24 Hours (Table) 01/01/20 01/01/20 01/01/20 Range/Units 12:08 12:08 12:08 WBC (3.8-10.6) k/uL RBC 3.25 L (3.80-5.40) m/uL Hgb (11.4-16.0) gm/dL Hct (34.0-46.0) % MCV 122.4 H (80.0-100.0) fL MCH 40.5 H (25.0-35.0) pg RDW 15.6 H (11.5-15.5) % Plt Count 107 L (150-450) k/uL Lymphocytes # 0.9 L (1.0-4.8) k/uL Macrocytosis Marked A Sodium 133 L (137-145) mmol/L Potassium 2.6 L* (3.5-5.1) mmol/L Chloride 81 L (98-107) mmol/L Carbon Dioxide 32 H (22-30) mmol/L Glucose 139 H (74-99) mg/dL Plasma Lactic Acid Paulino (0.7-2.0) mmol/L Calcium (8.4-10.2) mg/dL Total Bilirubin 3.5 H (0.2-1.3) mg/dL AST 151 H (14-36) U/L Alkaline Phosphatase 317 H (38-126) U/L Total Protein 8.9 H (6.3-8.2) g/dL Albumin (3.5-5.0) g/dL Urine Appearance Cloudy H (Clear) Urine Protein 1+ H (Negative) Urine Ketones Trace H (Negative) Urine Blood Small H (Negative) Urine Bilirubin 1+ H (Negative) Ur Leukocyte Esterase Small H (Negative) Urine WBC 6 H (0-5) /hpf Ur Squamous Epith Cells 19 H (0-4) /hpf Urine Mucus Many H (None) /hpf 01/01/20 01/02/20 01/02/20 Range/Units 12:19 07:48 07:48 WBC 3.2 L (3.8-10.6) k/uL RBC 2.50 L (3.80-5.40) m/uL Hgb 10.2 L (11.4-16.0) gm/dL Hct 31.8 L (34.0-46.0) % MCV 127.1 H (80.0-100.0) fL MCH 40.6 H (25.0-35.0) pg RDW 15.6 H (11.5-15.5) % Plt Count (150-450) k/uL Lymphocytes # (1.0-4.8) k/uL Macrocytosis Marked A Sodium 136 L (137-145) mmol/L Potassium 2.7 L* (3.5-5.1) mmol/L Chloride (98-107) mmol/L Carbon Dioxide (22-30) mmol/L Glucose 116 H (74-99) mg/dL Plasma Lactic Acid Paulino 5.2 H* (0.7-2.0) mmol/L Calcium 7.9 L (8.4-10.2) mg/dL Total Bilirubin 2.2 H (0.2-1.3) mg/dL AST 83 H (14-36) U/L Alkaline Phosphatase 176 H (38-126) U/L Total Protein 5.9 L (6.3-8.2) g/dL Albumin 2.8 L (3.5-5.0) g/dL Urine Appearance (Clear) Urine Protein (Negative) Urine Ketones (Negative) Urine Blood (Negative) Urine Bilirubin (Negative) Ur Leukocyte Esterase (Negative) Urine WBC (0-5) /hpf Ur Squamous Epith Cells (0-4) /hpf Urine Mucus (None) /hpf Assessment and Plan Plan: Intractable nausea and vomiting Could be secondary to peptic ulcer disease versus alcohol induced gastritis versus cyclical vomiting syndrome due to marijuana use Continue IV fluids Zofran when necessary for nausea and vomiting Protonix 40 mg IV twice a day Mylanta when necessary Acute gastroenteritis IV fluids as above Stool for C. diff If negative will proceed with antimotility agents. Alcohol and marijuana abuse ETOH withdrawal protocol Patient was counseled to quit Hyponatremia/dehydration Improved IV fluids Follow in am Hypokalemia Replace Follow in am Admitted to observation expected length of stay less than 2 midnights Anticipated discharge: 1-2 days Dispo: likely home
[2020-01-02 11:37] LABS: Band Neutrophils % 1 %; Eosinophils # (M) 0.03 k/uL (0-0.7); Lymphocytes # (M) 1.34 k/uL (1.0-4.8); Neutrophils % (M) 53 %; Nucleated Red Blood Cells 0 /100 WBC (0-0); Total Cells Counted 100
[2020-01-02 11:42] LABS: Platelet Count 65 k/uL (150-450)
[2020-01-02 13:21] VITALS: BMI 20.3
[2020-01-02] MEDS ORDERED: MELATONIN 5 MG TABLET PO SCH (21:00)
[2020-01-02 23:29] VITALS: RESP 16
[2020-01-03] MEDS: LACTATED RINGERS 1,000 ML IV SCH ×2 (00:26→09:37)
[2020-01-03] MEDS: THIAMINE 100 MG TAB PO SCH ×2 (06:27→18:22)
[2020-01-03 08:57] LABS: African American GFR (CKD) >90 (>60 ml/min/1.73 sqM); Anion Gap 5 mmol/L; Blood Urea Nitrogen 2 mg/dL (7-17); Calcium 8.2 mg/dL (8.4-10.2); Carbon Dioxide 29 mmol/L (22-30); Chloride 103 mmol/L (98-107); Glucose 89 mg/dL (74-99); Non-African American GFR(CKD) >90 (>60 ml/min/1.73 sqM); Sodium 137 mmol/L (137-145)
[2020-01-03] MEDS: BENZOCAINE/MENTHOL LOZENG 1 EACH LOZENGE MUCOUS MEM PRN (09:31)
[2020-01-03] MEDS: PANTOPRAZOLE 40 MG/10 ML VIAL IVP SCH (09:31)
[2020-01-03 11:03] LABS: Basophils % (A) 0 %; Eosinophils # (A) 0.1 k/uL (0-0.7); Eosinophils % (A) 5 %; HCT 29.6 % (34.0-46.0); HGB 9.5 gm/dL (11.4-16.0); Hypochromasia Slight; Lymphocytes # (A) 0.9 k/uL (1.0-4.8); Lymphocytes % (A) 38 %; MCHC 32.2 g/dL (31.0-37.0); MCV 131.3 fL (80.0-100.0); Macrocytosis Marked; Monocytes # (A) 0.1 k/uL (0-1.0); Monocytes % (A) 6 %; Neutrophils # (A) 1.2 k/uL (1.3-7.7); Neutrophils % (A) 51 %; RBC 2.25 m/uL (3.80-5.40); RDW 15.5 % (11.5-15.5); WBC 2.4 k/uL (3.8-10.6)
[2020-01-03 11:06] LABS: Platelet Count 63 k/uL (150-450)
[2020-01-03 11:07] LABS: MCH 42.3 pg (25.0-35.0)
[2020-01-03] MEDS: ACETAMINOPHEN TAB 325 MG TAB PO PRN (11:51)
[2020-01-03] MEDS: POTASSIUM CHLORIDE ER 20 MEQ TAB.ER PO SCH ×2 (11:52→12:37)
[2020-01-03 15:09] VITALS: BP 99/63; PULSE 90; TEMP 98.6
--- NOTE | 2020-01-04 09:22 | P.DS ---
Providers Date of admission: 01/03/20 14:24 Expected date of discharge: 01/03/20 Attending physician: Bethany Bella DO Primary care physician: Stated None Hospital Course: 39-year-old female with history of alcoholism presents to the emergency department today for evaluation of nausea and vomiting. Patient states his been going on for the last 4 days. States she is unable to keep down any food or fluids. She is reporting a burning sensation from her midepigastric region up to her neck. She has been also having some diffuse abdominal pain especially in the epigastric region. Patient has also been having increasingly frequent and loose bowel movements. Denies any hematemesis, hematochezia, or melena. Denies any new medications. She states that she cut down on drinking significantly because she knows she has liver damage from the drinking. Does admit to smoking marijuana on a daily basis and has for a number of years. Patient denies any recent rash, fever, chills, cough, shortness of breath, chest pain, back pain, dysuria, urinary urgency, urinary frequency, headache, visual changes, or any other complaints. Laboratory analysis in the emergency department revealed severely low potassium at 2.6. This was replaced. Lipase was negative for pancreatitis. Her symptoms are most likely related to alcoholic gastritis versus peptic ulcer disease. She was also started on IV fluids for dehydration. Antiemetics were also prescribed in addition to PPI. She was counseled to stop drinking and smoking marijuana. During the hospitalization she also has some diarrhea, she was checked for C. diff and that was negative. Antidiarrheal agents were started. Her symptoms improved significantly towards the end of the hospitalization. She was discharged home in stable condition. Patient Condition at Discharge: Serious Plan - Discharge Summary Discharge Rx Participant: Yes New Discharge Prescriptions: New Potassium Chloride ER [K-Dur 20] 20 meq PO DAILY 15 Days #15 tab Mag Hydrox/Al Hydrox/Simeth [Maalox] 30 ml PO Q4HR PRN ml PRN Reason: Gi Upset Lansoprazole [Prevacid] 15 mg PO DAILY 30 Days #30 cap Thiamine [Vitamin B-1] 100 mg PO BID-W/MEALS tab Continue Acetaminophen/Diphenhydramine [Tylenol PM 500-25mg] 2 tab PO HS Discontinued Famotidine [Pepcid AC] 10 mg PO TID PRN PRN Reason: GERD Discharge Medication List Acetaminophen/Diphenhydramine [Tylenol PM 500-25mg] 2 tab PO HS 01/01/20 [History] Lansoprazole [Prevacid] 15 mg PO DAILY 30 Days #30 cap 01/03/20 [Rx] Mag Hydrox/Al Hydrox/Simeth [Maalox] 30 ml PO Q4HR PRN ml 01/03/20 [Rx] Potassium Chloride ER [K-Dur 20] 20 meq PO DAILY 15 Days #15 tab 01/03/20 [Rx] Thiamine [Vitamin B-1] 100 mg PO BID-W/MEALS tab 01/03/20 [Rx] Follow up Appointment(s)/Referral(s): None,Stated [Primary Care Provider] - 1-2 days Chandan Galaviz [STAFF PHYSICIAN] - 1 Week (Please call to make follow up appointment when office opens Saturday) Patient Instructions/Handouts: Hypokalemia (DC), Acute Nausea and Vomiting (DC)
== END 2020-01-03 16:24 | disposition home or self-care (01) ==
LOC: EC 11:40 → 3SCARD 13:48 → OBSVTOIN 01-03 14:24 → INTOOBSV 01-03 14:24 → UNDODISIN 01-03 16:24
PROVIDERS: ADMIT Internal Medicine; ATTEND Internal Medicine
DX: K52.9 Noninfective gastroenteritis and colitis, unspecified (principal); F10.20 Alcohol dependence, uncomplicated; F12.10 Cannabis abuse, uncomplicated; E87.1 Hypo-osmolality and hyponatremia; E86.0 Dehydration; E87.6 Hypokalemia; E87.2 Acidosis; R00.0 Tachycardia, unspecified; K21.9 Gastro-esophageal reflux disease without esophagitis; K76.0 Fatty (change of) liver, not elsewhere classified; G62.9 Polyneuropathy, unspecified; E88.09 Other disorders of plasma-protein metabolism, not elsewhere classified; D61.818 Other pancytopenia; F32.9 Major depressive disorder, single episode, unspecified; F17.200 Nicotine dependence, unspecified, uncomplicated; R94.31 Abnormal electrocardiogram [ECG] [EKG]; Z71.41 Alcohol abuse counseling and surveillance of alcoholic; Z71.51 Drug abuse counseling and surveillance of drug abuser; Z03.818 Encounter for observation for suspected exposure to other biological agents ruled out; Z90.49 Acquired absence of other specified parts of digestive tract; Z79.899 Other long term (current) drug therapy; Z88.1 Allergy status to other antibiotic agents; Z88.5 Allergy status to narcotic agent; Z87.19 Personal history of other diseases of the digestive system; Z87.09 Personal history of other diseases of the respiratory system; Z87.442 Personal history of urinary calculi; Z98.890 Other specified postprocedural states; Z87.42 Personal history of other diseases of the female genital tract; Z83.3 Family history of diabetes mellitus; Z82.49 Family history of ischemic heart disease and other diseases of the circulatory system; Y90.9 Presence of alcohol in blood, level not specified
CPT/HCPCS: 96376 ×2; 96361 ×3; 96366 ×3; 96375 ×2; 96365; 96372; 99285; 36415; 93005; 80053 ×2; 80048; 82150; 83605; 83690; 83735 ×2; 84484; 85025 ×3; 81001; 87324; 70360; 74018; G0378 ×3; U0003; J1200; J3250; J3480 ×2; J2405; C9113 ×3

== ENCOUNTER 2020-01-27 22:35 | Emergency (ER) | payer OTHER ==
[2020-01-27 22:50] VITALS: RESP 18; TEMP 98.5
--- NOTE | 2020-01-28 00:25 | ED ---
Abdominal Pain HPI - General Chief Complaint: Abdominal Pain Stated Complaint: Rectal pain Time Seen by Provider: 01/27/20 22:58 Source: patient Mode of arrival: ambulatory - History of Present Illness Initial Comments: This patient is a 39-year-old woman who presents for lower abdominal pain and also for perianal pain. Patient states that she had hemorrhoid surgery since that time has had some intermittent perianal pain which has gotten worse recently. She also feels like she has been constipated, having about 2-3 days of lower abdominal cramping and fullness. She states that her last bowel movements have only been small amount of hard stool. Complaint: abdominal pain, other (Perianal pain) -: week(s) Location: LLQ, RLQ Radiation: none Migration to: no migration Severity: moderate Quality: cramping Consistency: intermittent Improves With: nothing Worsens With: nothing Associated Symptoms: constipation - Related Data Home Medications Medication Instructions Recorded Confirmed Acetaminophen/Diphenhydramine 2 tab PO HS 01/01/20 01/01/20 [Tylenol PM 500-25mg] Previous Rx's Medication Instructions Recorded Lansoprazole [Prevacid] 15 mg PO DAILY 30 Days #30 cap 01/03/20 Mag Hydrox/Al Hydrox/Simeth 30 ml PO Q4HR PRN ml 01/03/20 [Maalox] Potassium Chloride ER [K-Dur 20] 20 meq PO DAILY 15 Days #15 tab 01/03/20 Thiamine [Vitamin B-1] 100 mg PO BID-W/MEALS tab 01/03/20 Hydrocortisone/Pramoxine 0 applic RECTAL BID #1 bottle 01/28/20 [Proctofoam-Hc 1%-1% Foam] Allergies Allergy/AdvReac Type Severity Reaction Status Date / Time cephalexin monohydrate Allergy Rash/Hives Verified 01/27/20 22:50 [From Keflex] codeine Allergy Rash/Hives Verified 01/27/20 22:50 Review of Systems ROS Statement: Those systems with pertinent positive or pertinent negative responses have been documented in the HPI. ROS Other: All systems not noted in ROS Statement are negative. Constitutional: Denies: fever, chills Respiratory: Denies: cough, dyspnea Cardiovascular: Denies: chest pain, palpitations, edema Gastrointestinal: Reports: as per HPI, abdominal pain, constipation. Denies: nausea, vomiting, diarrhea, melena, hematochezia Genitourinary: Denies: dysuria, frequency, hematuria Musculoskeletal: Denies: back pain Skin: Denies: rash Neurological: Denies: headache Past Medical History Past Medical History: GERD/Reflux Additional Past Medical History / Comment(s): Hepatic steatosis, ETOH abuse, gastritis, duodenitis, lower GI bleed, colitis, hemorrhoids, bronchitis, R side nephrolithiasis with surgery, bilateral ovarian cysts, neuropathy bilateral hands/legs and tops of both feet, hypokalemia, hypoalbumenemia, pancytopenia. History of Any Multi-Drug Resistant Organisms: None Reported Past Surgical History: Appendectomy, Orthopedic Surgery Additional Past Surgical History / Comment(s): Left knee surgeries-3 arthroscopic and one open, EGDs, colonoscopies, R sided lithotripsy. Past Anesthesia/Blood Transfusion Reactions: No Reported Reaction Additional Past Anesthesia/Blood Transfusion Reaction / Comment(s): Pt has received blood in past without reaction. Past Psychological History: Depression Smoking Status: Current every day smoker Past Alcohol Use History: Occasional Past Drug Use History: Marijuana - Past Family History Mother Family Medical History: Diabetes Mellitus Additional Family Medical History / Comment(s): Borderline HTN Brother(s) Family Medical History: Diabetes Mellitus Father Family Medical History: Hypertension Additional Family Medical History / Comment(s): BOARDERLINE DM General Exam General appearance: alert, in no apparent distress Respiratory exam: Present: normal lung sounds bilaterally. Absent: respiratory distress, wheezes, rales, rhonchi, stridor Cardiovascular Exam: Present: normal rhythm, tachycardia, normal heart sounds. Absent: systolic murmur, diastolic murmur, rubs, gallop GI/Abdominal exam: Present: soft. Absent: distended, tenderness, guarding, rebound, rigid, mass, pulsatile mass, hernia Rectal exam: Present: tenderness, other (Nursing staff present. Patient appears to have some degree of stricture formation following hemorrhoidectomy, however evaluation is difficult as patient does have anal fissure and quite a bit of spasm on the exam and did not tolerate a full digital rectal exam.). Absent: hemorrhoids, mass Extremities exam: Present: normal inspection, normal capillary refill. Absent: pedal edema, calf tenderness Neurological exam: Present: alert Skin exam: Present: warm, dry, intact, normal color. Absent: rash Course Vital Signs 01/27/20 01/28/20 22:48 00:33 Temperature 98.5 F Pulse Rate 117 H 98 Respiratory 18 18 Rate Blood Pressure 122/60 121/59 O2 Sat by Pulse 97 98 Oximetry Medical Decision Making - Medical Decision Making Patient is 39-year-old woman here with lower abdominal pain consistent with moderate degree of constipation which appears to be due to anal fissure. There may also be component of some stricture formation, will have patient follow with Dr. Arthur who had treated patient for her hemorrhoids. Patient given fissure care instructions, return parameters and follow-up Disposition Clinical Impression: Anal fissure Disposition: HOME SELF-CARE Condition: Fair Instructions (If sedation given, give patient instructions): Anal Fissure (ED) Prescriptions: Hydrocortisone/Pramoxine [Proctofoam-Hc 1%-1% Foam] 0 applic RECTAL BID #1 b ottle Is patient prescribed a controlled substance at d/c from ED?: No Referrals: None,Stated [REFERRING] - 1-2 days Winston Arthur MD [STAFF PHYSICIAN] - 1-2 days
[2020-01-28 00:34] VITALS: BP 121/59; PULSE 98
== END 2020-01-28 00:33 | disposition home or self-care (01) ==
LOC: EC 22:35
DX: K60.2 Anal fissure, unspecified (principal); K59.00 Constipation, unspecified; G57.93 Unspecified mononeuropathy of bilateral lower limbs; F17.200 Nicotine dependence, unspecified, uncomplicated; Z87.19 Personal history of other diseases of the digestive system; Z87.442 Personal history of urinary calculi; Z90.49 Acquired absence of other specified parts of digestive tract; Z98.890 Other specified postprocedural states; Z79.899 Other long term (current) drug therapy; Z88.1 Allergy status to other antibiotic agents; Z88.5 Allergy status to narcotic agent
CPT/HCPCS: 99283

== ENCOUNTER 2020-02-01 19:02 | Observation (INO) | payer OTHER ==
[2020-02-01] MEDS ORDERED: SODIUM CHLORIDE 0.9% 1,000 ML IV STA (19:25)
[2020-02-01] MEDS ORDERED: KETOROLAC 30 MG/ML 1 ML VIAL IVP STA (19:25)
--- NOTE | 2020-02-01 19:53 | ED ---
General Adult HPI - General Chief complaint: Urogenital Stated complaint: pain-revisit Time Seen by Provider: 02/01/20 19:13 Source: patient Mode of arrival: ambulatory Limitations: no limitations - History of Present Illness Initial comments: 39-year-old female patient presents to the emergency department today for evaluation of intermittent rectal pain. Patient states that she has been having the pain for the last couple of weeks. States the pain is intermittent and comes on and lasts about 30 seconds. States it is an intense sharp stabbing pain to the rectal region. States it feels more deep and superficial. States she did have hemorrhoid surgery in July with Dr. Arthur. She was seen in the emergency department for similar symptoms about 5 days ago. States that she was discharged with diagnosis of anal fissure and instructed to follow-up with her surgeon. She followed up with Dr. Arthur in the office and was instructed to follow-up with a rectal specialist. She was given cream for the anus but states that the cream is not helping. States that she has been having daily bowel movements. States they are somewhat thick and "sticky". States that she is having some mild abdominal cramping. She denies abnormal vaginal bleeding or discharge. Denies any hematuria, dysuria, urinary frequency, urinary urgency. Denies any nausea or vomiting. Patient denies any recent rash, fever, chills, cough, shortness of breath, chest pain, back pain, numbness, tingling, dizziness, weakness, headache, visual changes, or any other complaints. - Related Data Home Medications Medication Instructions Recorded Confirmed Acetaminophen/Diphenhydramine 2 tab PO HS 01/01/20 01/01/20 [Tylenol PM 500-25mg] Previous Rx's Medication Instructions Recorded Lansoprazole [Prevacid] 15 mg PO DAILY 30 Days #30 cap 01/03/20 Mag Hydrox/Al Hydrox/Simeth 30 ml PO Q4HR PRN ml 01/03/20 [Maalox] Potassium Chloride ER [K-Dur 20] 20 meq PO DAILY 15 Days #15 tab 01/03/20 Thiamine [Vitamin B-1] 100 mg PO BID-W/MEALS tab 01/03/20 Hydrocortisone/Pramoxine 0 applic RECTAL BID #1 bottle 01/28/20 [Proctofoam-Hc 1%-1% Foam] Allergies Allergy/AdvReac Type Severity Reaction Status Date / Time cephalexin monohydrate Allergy Rash/Hives Verified 01/27/20 22:50 [From Keflex] codeine Allergy Rash/Hives Verified 01/27/20 22:50 Review of Systems ROS Statement: Those systems with pertinent positive or pertinent negative responses have been documented in the HPI. ROS Other: All systems not noted in ROS Statement are negative. Past Medical History Past Medical History: GERD/Reflux Additional Past Medical History / Comment(s): Hepatic steatosis, ETOH abuse, gastritis, duodenitis, lower GI bleed, colitis, hemorrhoids, bronchitis, R side nephrolithiasis with surgery, bilateral ovarian cysts, neuropathy bilateral hands/legs and tops of both feet, hypokalemia, hypoalbumenemia, pancytopenia. History of Any Multi-Drug Resistant Organisms: None Reported Past Surgical History: Appendectomy, Orthopedic Surgery Additional Past Surgical History / Comment(s): Left knee surgeries-3 arthroscopic and one open, EGDs, colonoscopies, R sided lithotripsy. Past Anesthesia/Blood Transfusion Reactions: No Reported Reaction Additional Past Anesthesia/Blood Transfusion Reaction / Comment(s): Pt has received blood in past without reaction. Past Psychological History: Depression Smoking Status: Current every day smoker Past Alcohol Use History: Occasional Past Drug Use History: Marijuana - Past Family History Mother Family Medical History: Diabetes Mellitus Additional Family Medical History / Comment(s): Borderline HTN Brother(s) Family Medical History: Diabetes Mellitus Father Family Medical History: Hypertension Additional Family Medical History / Comment(s): BOARDERLINE DM General Exam Limitations: no limitations General appearance: alert, in no apparent distress, other (This is a well- developed, well-nourished adult female patient in no acute distress. Vital signs upon presentation are temperature 97.9F, pulse 108, respirations 18, blood pressure 126/85, pulse ox 98% on room air.) Eye exam: Present: normal appearance, PERRL, EOMI. Absent: scleral icterus, conjunctival injection, periorbital swelling ENT exam: Present: normal exam, normal oropharynx, mucous membranes moist Respiratory exam: Present: normal lung sounds bilaterally. Absent: respiratory distress, wheezes, rales, rhonchi, stridor Cardiovascular Exam: Present: regular rate, normal rhythm, normal heart sounds. Absent: systolic murmur, diastolic murmur, rubs, gallop, clicks GI/Abdominal exam: Present: soft, normal bowel sounds. Absent: distended, tenderness, guarding, rebound, rigid Rectal exam: Present: hemorrhoids (external, not inflamed, not tender) Neurological exam: Present: alert, oriented X3, CN II-XII intact Psychiatric exam: Present: normal affect, normal mood Skin exam: Present: warm, dry, intact, normal color. Absent: rash Course Vital Signs 02/01/20 02/01/20 19:04 22:24 Temperature 97.9 F 97.6 F Pulse Rate 108 H 72 Respiratory 18 16 Rate Blood Pressure 126/85 114/56 O2 Sat by Pulse 98 99 Oximetry Medical Decision Making - Medical Decision Making 39 year-old female patient presents to the emergency department for evaluation of severe intermittent rectal pain. Physical examination revealed noninflamed external hemorrhoid, perianal tenderness, and rectal tenderness. Labs reviewed and were relatively unremarkable. CT abdomen and pelvis with IV and rectal contrast was obtained. Report was reviewed in its entirety. CT showed inflammatory changes in the rectum with wall thickening which could be from proctitis/colitis, or neoplasm. Patient remains in quite a bit of discomfort. We will admit to the hospital for GI evaluation. - Lab Data Result diagrams: 02/01/20 20:03 02/01/20 20:03 Lab Results 02/01/20 02/01/20 02/01/20 Range/Units 20:03 20:03 20:03 WBC 3.9 (3.8-10.6) k/uL RBC 2.84 L (3.80-5.40) m/uL Hgb 11.3 L (11.4-16.0) gm/dL Hct 35.3 (34.0-46.0) % MCV 124.6 H D (80.0-100.0) fL MCH 39.8 H (25.0-35.0) pg MCHC 31.9 (31.0-37.0) g/dL RDW 17.4 H (11.5-15.5) % Plt Count 80 L (150-450) k/uL Neutrophils % 64 % Lymphocytes % 29 % Monocytes % 4 % Eosinophils % 2 % Basophils % 0 % Neutrophils # 2.5 (1.3-7.7) k/uL Lymphocytes # 1.1 (1.0-4.8) k/uL Monocytes # 0.2 (0-1.0) k/uL Eosinophils # 0.1 (0-0.7) k/uL Basophils # 0.0 (0-0.2) k/uL Anisocytosis Slight Macrocytosis Marked A Sodium 139 (137-145) mmol/L Potassium 3.0 L (3.5-5.1) mmol/L Chloride 102 (98-107) mmol/L Carbon Dioxide 27 (22-30) mmol/L Anion Gap 10 mmol/L BUN 4 L (7-17) mg/dL Creatinine 0.39 L (0.52-1.04) mg/dL Est GFR (CKD-EPI)AfAm >90 (>60 ml/min/1.73 sqM) Est GFR (CKD-EPI)NonAf >90 (>60 ml/min/1.73 sqM) Glucose 91 (74-99) mg/dL Calcium 8.6 (8.4-10.2) mg/dL Total Bilirubin 1.5 H (0.2-1.3) mg/dL AST 63 H (14-36) U/L ALT 16 (4-34) U/L Alkaline Phosphatase 207 H (38-126) U/L Total Protein 6.6 (6.3-8.2) g/dL Albumin 3.3 L (3.5-5.0) g/dL Lipase 44 (23-300) U/L Urine Color Urine Appearance (Clear) Urine pH (5.0-8.0) Ur Specific [place] (1.001-1.035) Urine Protein (Negative) Urine Glucose (UA) (Negative) Urine Ketones (Negative) Urine Blood (Negative) Urine Nitrite (Negative) Urine Bilirubin (Negative) Urine Urobilinogen (<2.0) mg/dL Ur Leukocyte Esterase (Negative) Urine RBC (0-5) /hpf Urine WBC (0-5) /hpf Ur Squamous Epith Cells (0-4) /hpf Urine Mucus (None) /hpf Urine HCG, Qual (Not Detectd) 02/01/20 02/01/20 Range/Units 21:23 22:45 WBC (3.8-10.6) k/uL RBC (3.80-5.40) m/uL Hgb (11.4-16.0) gm/dL Hct (34.0-46.0) % MCV (80.0-100.0) fL MCH (25.0-35.0) pg MCHC (31.0-37.0) g/dL RDW (11.5-15.5) % Plt Count (150-450) k/uL Neutrophils % % Lymphocytes % % Monocytes % % Eosinophils % % Basophils % % Neutrophils # (1.3-7.7) k/uL Lymphocytes # (1.0-4.8) k/uL Monocytes # (0-1.0) k/uL Eosinophils # (0-0.7) k/uL Basophils # (0-0.2) k/uL Anisocytosis Macrocytosis Sodium (137-145) mmol/L Potassium (3.5-5.1) mmol/L Chloride (98-107) mmol/L Carbon Dioxide (22-30) mmol/L Anion Gap mmol/L BUN (7-17) mg/dL Creatinine (0.52-1.04) mg/dL Est GFR (CKD-EPI)AfAm (>60 ml/min/1.73 sqM) Est GFR (CKD-EPI)NonAf (>60 ml/min/1.73 sqM) Glucose (74-99) mg/dL Calcium (8.4-10.2) mg/dL Total Bilirubin (0.2-1.3) mg/dL AST (14-36) U/L ALT (4-34) U/L Alkaline Phosphatase (38-126) U/L Total Protein (6.3-8.2) g/dL Albumin (3.5-5.0) g/dL Lipase (23-300) U/L Urine Color Yellow Urine Appearance Clear (Clear) Urine pH 7.5 (5.0-8.0) Ur Specific [place] >1.050 H (1.001-1.035) Urine Protein Trace H (Negative) Urine Glucose (UA) Negative (Negative) Urine Ketones Negative (Negative) Urine Blood Moderate H (Negative) Urine Nitrite Negative (Negative) Urine Bilirubin Negative (Negative) Urine Urobilinogen 4.0 (<2.0) mg/dL Ur Leukocyte Esterase Negative (Negative) Urine RBC 22 H (0-5) /hpf Urine WBC 2 (0-5) /hpf Ur Squamous Epith Cells 6 H (0-4) /hpf Urine Mucus Rare H (None) /hpf Urine HCG, Qual Not Detected (Not Detectd) - Radiology Data Radiology results: report reviewed, image reviewed CT abdomen and pelvis with IV and rectal contrast was obtained. Report was reviewed in its entirety. Impression by Dr. Fischer shows nonspecific mesenteric and retroperitoneal stranding suggestive of inflammatory/infectious process of indeterminate etiology. Areas of mild colonic wall thickening or under distention, most prominent in the rectum with perirectal stranding, raising possibility of proctitis/colitis. Underlying neoplasm is not excluded. Fluid in the small bowel loops, can be seen with enteritis. Small linear splenic hypodensity. Differential considerations include laceration, infarct, or other etiology. Disposition Clinical Impression: Rectal pain, Inflammation of the rectum Disposition: ADMITTED IP TO THIS [facility] Condition: Serious Decision to Admit Reason: Admit from Decision Date: 02/01/20 Decision Time: 23:57
[2020-02-01 20:28] LABS: ALT 16 U/L (4-34); AST 63 U/L (14-36); African American GFR (CKD) >90 (>60 ml/min/1.73 sqM); Albumin 3.3 g/dL (3.5-5.0); Alkaline Phosphatase 207 U/L (38-126); Anion Gap 10 mmol/L; Blood Urea Nitrogen 4 mg/dL (7-17); Calcium 8.6 mg/dL (8.4-10.2); Carbon Dioxide 27 mmol/L (22-30); Chloride 102 mmol/L (98-107); Glucose 91 mg/dL (74-99); Non-African American GFR(CKD) >90 (>60 ml/min/1.73 sqM); Sodium 139 mmol/L (137-145); Total Bilirubin 1.5 mg/dL (0.2-1.3); Total Protein 6.6 g/dL (6.3-8.2)
[2020-02-01 20:36] LABS: Anisocytosis Slight; Basophils % (A) 0 %; Eosinophils # (A) 0.1 k/uL (0-0.7); Eosinophils % (A) 2 %; HCT 35.3 % (34.0-46.0); HGB 11.3 gm/dL (11.4-16.0); Lymphocytes # (A) 1.1 k/uL (1.0-4.8); Lymphocytes % (A) 29 %; MCH 39.8 pg (25.0-35.0); MCHC 31.9 g/dL (31.0-37.0); Macrocytosis Marked; Mean Platelet Volume 8.7; Monocytes # (A) 0.2 k/uL (0-1.0); Monocytes % (A) 4 %; Neutrophils # (A) 2.5 k/uL (1.3-7.7); Neutrophils % (A) 64 %; RBC 2.84 m/uL (3.80-5.40); RDW 17.4 % (11.5-15.5); WBC 3.9 k/uL (3.8-10.6)
[2020-02-01 20:40] LABS: MCV 124.6 fL (80.0-100.0)
[2020-02-01 20:53] LABS: Platelet Count 80 k/uL (150-450)
[2020-02-01] MEDS ORDERED: POTASSIUM CHLORIDE ER 20 MEQ TAB.ER PO STA (21:45)
[2020-02-01] MEDS ORDERED: MORPHINE SULFATE 4 MG/ML SYRINGE IVP STA (22:44)
[2020-02-01] MEDS ORDERED: ONDANSETRON 4 MG/2 ML VIAL IVP STA (22:45)
--- NOTE | 2020-02-01 22:45 | CT ---
EXAM: CT Abdomen and Pelvis With Intravenous Contrast CLINICAL HISTORY: ITS.REASON CT Reason: Rectal Pain TECHNIQUE: Axial computed tomography images of the abdomen and pelvis with intravenous contrast. CTDI is 6.3 mGy and DLP is 354.8 mGy-cm. This CT exam was performed using one or more of the following dose reduction techniques: automated exposure control, adjustment of the mA and/or kV according to patient size, and/or use of iterative reconstruction technique. COMPARISON: CT 05/12/19. FINDINGS: Lung bases: No acute findings. ABDOMEN: Liver: Enlarged fatty liver. Heterogeneous hepatic parenchyma. Gallbladder and bile ducts: Unremarkable. Pancreas: Unremarkable. Spleen: Small linear splenic hypodensity measuring 1.2 cm. Splenomegaly. Adrenals: Unremarkable. Kidneys and ureters: No hydronephrosis. Stomach and bowel: Areas of mild colonic wall thickening or underdistention, most prominent in the rectum with perirectal stranding, raising possibility of proctitis/colitis. Fluid in small bowel loops, can be seen with enteritis. PELVIS: Appendix: Appendix not visualized. Correlate with surgical history. Bladder: Mildly thickened underdistended bladder. Reproductive: Small left adnexal low density structures, may be ovarian. ABDOMEN and PELVIS: Intraperitoneal space: No free air. Retroperitoneal space: Nonspecific mesenteric and retroperitoneal stranding suggestive of inflammatory/infectious process of indeterminate etiology. Bones/joints: No acute fracture. Soft tissues: Small fat-containing umbilical hernia. Vasculature: Unremarkable. Lymph nodes: Small mesenteric and retroperitoneal lymph nodes. Tubes, lines and devices: Rectal tube noted. IMPRESSION: 1. Nonspecific mesenteric and retroperitoneal stranding suggestive of inflammatory/infectious process of indeterminate etiology. Differential considerations include pancreatitis or other etiology. 2. Areas of mild colonic wall thickening or underdistention, most prominent in the rectum with perirectal stranding, raising possibility of proctitis/colitis. Underlying neoplasm is not excluded. 3. Fluid in small bowel loops, can be seen with enteritis. 4. Small linear splenic hypodensity. Differential considerations include laceration, infarct, or other etiology. 5. Additional findings, as above.
[2020-02-01 23:08] LABS: Appearance,Urine Clear (Clear); Bilirubin,Urine Negative (Negative); Blood,Urine Moderate (Negative); Color,Urine Yellow; Glucose,Urine (UA) Negative (Negative); Ketones,Urine Negative (Negative); Leukocyte Esterase,Urine Negative (Negative); Mucus,Urine Rare /hpf; Nitrite,Urine Negative (Negative); PH, Urine 7.5 (5.0-8.0); Protein,Urine Trace (Negative); RBC,Urine 22 /hpf (0-5); Squamous Epithelial Cell,Urine 6 /hpf (0-4); WBC,Urine 2 /hpf (0-5)
[2020-02-01 23:12] LABS: Specific Gravity,Urine >1.050 (1.001-1.035)
[2020-02-01] MEDS ORDERED: traMADol 50 MG STARTER PACK 3 TAB BTL PO STA (23:33)
[2020-02-01] MEDS ORDERED: NALOXONE 0.4 MG/ML 1 ML VIAL IV PRN (23:52)
[2020-02-01] MEDS ORDERED: ONDANSETRON 4 MG/2 ML VIAL IVP PRN (23:52)
[2020-02-02] MEDS: SODIUM CHLORIDE 0.9% 1,000 ML IV SCH (00:54)
[2020-02-02] MEDS ORDERED: Potassium Replacement Protocol 1 EACH MISC MISCELLANE PRN (01:01)
[2020-02-02] MEDS: MORPHINE SULFATE 4 MG/ML SYRINGE IV PRN ×5 (03:08→20:36)
[2020-02-02 08:15] LABS: African American GFR (CKD) >90 (>60 ml/min/1.73 sqM); Anion Gap 7 mmol/L; Blood Urea Nitrogen 5 mg/dL (7-17); Calcium 7.7 mg/dL (8.4-10.2); Carbon Dioxide 26 mmol/L (22-30); Chloride 106 mmol/L (98-107); Glucose 91 mg/dL (74-99); Non-African American GFR(CKD) >90 (>60 ml/min/1.73 sqM); Potassium 3.7 mmol/L (3.5-5.1); Sodium 139 mmol/L (137-145)
[2020-02-02] MEDS ORDERED: HYDROCORTISONE RECTAL PRN (09:48)
[2020-02-02] MEDS ORDERED: PRAMOXINE RECTAL PRN (09:48)
[2020-02-02 10:36] LABS: Anisocytosis Slight; HCT 34.2 % (34.0-46.0); HGB 10.5 gm/dL (11.4-16.0); Hypochromasia Marked; MCH 39.9 pg (25.0-35.0); MCHC 30.7 g/dL (31.0-37.0); Macrocytosis Marked; Mean Platelet Volume 9.2; RBC 2.64 m/uL (3.80-5.40); RDW 17.3 % (11.5-15.5); WBC 3.8 k/uL (3.8-10.6)
[2020-02-02 11:01] LABS: MCV 129.8 fL (80.0-100.0); Platelet Count 71 k/uL (150-450)
[2020-02-02] MEDS: PRAMOXINE RECTAL SCH ×2 (11:06→20:45)
[2020-02-02] MEDS: HYDROCORTISONE RECTAL SCH ×2 (11:06→20:45)
[2020-02-02] MEDS: [UNRECOGNIZED DRUG - OTHER] RECTAL SCH ×2 (11:06→20:45)
[2020-02-02] MEDS: polyethylene glycoL 3350 17 GM POWD.PACK PO SCH (11:33)
[2020-02-02 12:41] LABS: Eosinophils # (M) 0.08 k/uL (0-0.7); Lymphocytes # (M) 0.87 k/uL (1.0-4.8); Monocytes # (M) 0.23 k/uL (0-1.0); Neutrophils # (M) 2.62 k/uL (1.3-7.7); Neutrophils % (M) 69 %; Nucleated Red Blood Cells 0 /100 WBC (0-0); Total Cells Counted 100
[2020-02-02] MEDS: LIDOCAINE 2% GEL 30 ML TUBE TOPICAL SCH ×2 (13:31→20:43)
--- NOTE | 2020-02-02 22:53 | P.HPIM ---
History of Present Illness H&P Date: 02/02/20 Chief Complaint: Rectal pain Patient is a 39-year-old female with a known history of GERD, EtOH abuse, alcoholic hepatic steatosis, external hemorrhoids and right nephrolithiasis status post lithotripsy, currently everyday smoker and marijuana use came to ER with complaints of rectal pain for the past 2 weeks. Patient has been having intermittent pain. Patient did have hemorrhoid surgery in July 2019. Patient was seen in the ER about 5days and was recommended to follow-up with his surgeon and was also Anusol cream was given. Patient states that she has been having constipation and abdominal cramping sometimes. Denied any blood in the stool. Denied any fever or chills. No complaints of cough or shortness of breath. No numbness or tingling. No stacey k pain. No dysuria or hematuria. Lab data showed WBC 3.9, hemoglobin 11.3, MCV 124.6 RDW 17.4 and platelets 80 Sodium 139, potassium 3.0, BUN 14 creatinine 0.39 Total bilirubin 1.5 AST 63 Alk phos 207 Urinalysis showed increased specific gravity, moderate blood nitrite negative and leukocyte esterase negative. Review of Systems Constitutional: Patient denies any fever or chills . No generalized weakness or weight loss. Abdomen: Patient denied nausea vomiting and diarrhea and abdominal pain. rectal pain Cardiovascular: Patient denies any chest pain or short of breath no palpitations. Respiratory: patient denied any cough is from production. No shortness of breath Neurologic: Patient denied any numbness or tingling headache. Musculoskeletal: Patient denies any complaints of joint swelling or deformity. Skin: Negative Psychiatric: Negative Endocrine: No heat or cold intolerance. No recent weight gain. Genitourinary: No dysuria or hematuria. All other 14 point ROS negative except the above Past Medical History Past Medical History: GERD/Reflux Additional Past Medical History / Comment(s): Hepatic steatosis, ETOH abuse, gastritis, duodenitis, lower GI bleed, colitis, hemorrhoids, bronchitis, R side nephrolithiasis with surgery, bilateral ovarian cysts, neuropathy bilateral hands/legs and tops of both feet, hypokalemia, hypoalbumenemia, pancytopenia. History of Any Multi-Drug Resistant Organisms: None Reported Past Surgical History: Appendectomy, Orthopedic Surgery Additional Past Surgical History / Comment(s): Left knee surgeries-3 arthroscopic and one open, EGDs, colonoscopies, R sided lithotripsy. Past Anesthesia/Blood Transfusion Reactions: No Reported Reaction Additional Past Anesthesia/Blood Transfusion Reaction / Comment(s): Pt has received blood in past without reaction. Past Psychological History: Depression Additional Psychological History / Comment(s): Pt resides with her boyfriend and 2 children, one which is an adult. Pt is independent. 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 Smoking Status: Current every day smoker Past Alcohol Use History: Occasional Additional Past Alcohol Use History / Comment(s): Pt started smoking in 1994 and is a half a ppd smoker. She has hx of ETOH abuse. She uses to drink a fifth of vodka a day but is down to 1/2 pint a day. Past Drug Use History: Marijuana Additional Drug Use History / Comment(s): Pt states she takes a few "hits" off a joint daily. - Past Family History Mother Family Medical History: Diabetes Mellitus Additional Family Medical History / Comment(s): Borderline HTN Brother(s) Family Medical History: Diabetes Mellitus Father Family Medical History: Hypertension Additional Family Medical History / Comment(s): BOARDERLINE DM Medications and Allergies Home Medications Medication Instructions Recorded Confirmed Type Acetaminophen/Diphenhydramine 2 tab PO HS 01/01/20 02/02/20 History [Tylenol PM 500-25mg] Potassium Chloride ER [K-Dur 20] 20 meq PO DAILY 15 Days #15 tab 01/03/20 02/02/20 Rx Famotidine/Ca Carb/Mag Hydrox 1 tab PO BID PRN 02/02/20 02/02/20 History [Pepcid Complete Tablet Chew] Hydrocortisone/Pramoxine 1 applicator RECTAL BID PRN 02/02/20 02/02/20 History [Proctofoam-Hc 1%-1% Foam] Allergies Allergy/AdvReac Type Severity Reaction Status Date / Time cephalexin monohydrate Allergy Rash/Hives Verified 02/02/20 07:19 [From Keflex] codeine Allergy Rash/Hives Verified 02/02/20 07:19 Physical Exam Vitals: Vital Signs Temp Pulse Pulse Resp BP BP Pulse Ox 02/02/20 08:19 98.7 F 99 12 107/54 97 02/02/20 03:12 90 15 116/61 97 02/02/20 01:40 98.3 F 90 16 113/58 96 02/02/20 00:54 98.4 F 95 16 99/53 97 02/01/20 22:24 97.6 F 72 16 114/56 99 02/01/20 19:04 97.9 F 108 H 18 126/85 98 Intake and Output 02/01/20 02/02/20 02/02/20 22:59 06:59 14:59 Other: Voiding Method Toilet # Voids 1 Weight 48.534 kg 48.534 kg PHYSICAL EXAMINATION: Patient is lying in the bed comfortably, no acute distress, awake alert and oriented.. HEENT: Normocephalic. Neck is supple. Pupils reactive. Nostrils clear. Oral ca vity is moist. Ears reveal no drainage. Neck reveals no JVD, carotid bruits, or thyromegaly. CHEST EXAMINATION: Trachea is central. Symmetrical expansion. Lung toro clear to auscultation and percussion. CARDIAC: Normal S1, S2 with no gallops. No murmurs ABDOMEN: Soft. Bowel sounds normal. No organomegaly. No abdominal bruits. Extremities: reveal no edema. No clubbing or cyanosis Neurologically awake, alert, oriented x3 with well-coordinated movements. No focal deficits noted Skin: No rash or skin lesions. Psychiatric: Coperative. Nonsuicidal Musculoskeletal: No joint swelling or deformity. Normal range of motion. Results CBC & Chem 7: 02/02/20 07:10 02/02/20 07:10 Labs: Abnormal Lab Results - Last 24 Hours (Table) 02/01/20 02/01/20 02/01/20 Range/Units 20:03 20:03 22:45 RBC 2.84 L (3.80-5.40) m/uL Hgb 11.3 L (11.4-16.0) gm/dL MCV 124.6 H D (80.0-100.0) fL MCH 39.8 H (25.0-35.0) pg RDW 17.4 H (11.5-15.5) % Plt Count 80 L (150-450) k/uL Macrocytosis Marked A Potassium 3.0 L (3.5-5.1) mmol/L BUN 4 L (7-17) mg/dL Creatinine 0.39 L (0.52-1.04) mg/dL Calcium (8.4-10.2) mg/dL Total Bilirubin 1.5 H (0.2-1.3) mg/dL AST 63 H (14-36) U/L Alkaline Phosphatase 207 H (38-126) U/L Albumin 3.3 L (3.5-5.0) g/dL Ur Specific [place] >1.050 H (1.001-1.035) Urine Protein Trace H (Negative) Urine Blood Moderate H (Negative) Urine RBC 22 H (0-5) /hpf Ur Squamous Epith Cells 6 H (0-4) /hpf Urine Mucus Rare H (None) /hpf 02/02/20 Range/Units 07:10 RBC (3.80-5.40) m/uL Hgb (11.4-16.0) gm/dL MCV (80.0-100.0) fL MCH (25.0-35.0) pg RDW (11.5-15.5) % Plt Count (150-450) k/uL Macrocytosis Potassium (3.5-5.1) mmol/L BUN 5 L (7-17) mg/dL Creatinine 0.44 L (0.52-1.04) mg/dL Calcium 7.7 L (8.4-10.2) mg/dL Total Bilirubin (0.2-1.3) mg/dL AST (14-36) U/L Alkaline Phosphatase (38-126) U/L Albumin (3.5-5.0) g/dL Ur Specific [place] (1.001-1.035) Urine Protein (Negative) Urine Blood (Negative) Urine RBC (0-5) /hpf Ur Squamous Epith Cells (0-4) /hpf Urine Mucus (None) /hpf Thrombosis Risk Factor Assmnt - DVT/VTE Prophylaxis DVT/VTE Prophylaxis: Pharmacologic Prophylaxis ordered - Choose All That Apply Any of the Below Risk Factors Present?: No Other Risk Factors: No Other congenital or acquired thrombophilia - If yes, enter type in comment: No Thrombosis Risk Factor Assessment Level: Very Low Risk Assessment and Plan Assessment: Rectal pain secondary to external hemorrhoids and possible colitis/proctitis History of external hemorrhoids status post surgery in July 2019 Ongoing nicotine addiction and marijuana use Alcohol abuse history Alcoholic hepatitis steatosis Macrocytic anemia Thrombocytopenia Hypokalemia DVT prophylaxis Plan: Patient will continue on IV hydration. Continue with stool softeners as needed. Anusol cream as needed. GI was consulted for evaluation. CT of abdomen pelvis was ordered. Further recommendations based on clinical course. Time with Patient: Greater than 30
[2020-02-03] MEDS: MORPHINE SULFATE 4 MG/ML SYRINGE IV PRN ×3 (00:55→09:05)
[2020-02-03] MEDS: SODIUM CHLORIDE 0.9% 1,000 ML IV SCH (00:58)
--- NOTE | 2020-02-03 07:30 | P.CONS ---
History of Present Illness - Reason for Consult Consult date: 02/02/20 Rectal pain Requesting physician: Silvino Spence - Chief Complaint Rectal pain - History of Present Illness 39-year-old female with medical history significant for alcohol abuse, alcoholic liver disease, hemorrhoids status post hemorrhoidectomy a few months ago, hepatomegaly and neuropathy who presented to the hospital due to complaints of rectal pain. The patient has been having rectal pain over the past few weeks. She states that the pain has been in association with hard "sticky" bowel movements. She has noted some bleeding with the episodes. The patient had a recent hemorrhoidectomy and was seen in the office by the surgical service. At that time she was given treatment for an anal fissure and told to follow-up with a colorectal surgeon. The patient has been using lidocaine jelly. She previously underwent endoscopic evaluation in 05/13/2019 with EGD showing gastritis and internal and external hemorrhoids noted on colonoscopy. Review of Systems REVIEW OF SYSTEMS: CONSTITUTIONAL: Denies any fevers, chills, weight change but she does have fatigue. CARDIOVASCULAR: Denies any chest pain, palpitations high or low blood pressures RESPIRATORY: Denies any shortness of breath, hemoptysis or cough. GENITOURINARY: No dysuria or hematuria. MUSCULOSKELETAL: No weakness reported. SKIN: Denies any new rashes or lesions, jaundice or pallor. PSYCHIATRIC: Denies any depression or anxiety, history of alcohol abuse. NEUROLOGY: Denies headache, denies any new focal deficits. EARS/NOSE/THROAT: No recent hearing change, congestion, nasal discharge or sore throat. EYES: No pain in eyes, discharge or change in vision. GASTROINTESTINAL: As per HPI. Past Medical History Past Medical History: GERD/Reflux Additional Past Medical History / Comment(s): Hepatic steatosis, ETOH abuse, gastritis, duodenitis, lower GI bleed, colitis, hemorrhoids, bronchitis, R side nephrolithiasis with surgery, bilateral ovarian cysts, neuropathy bilateral hands/legs and tops of both feet, hypokalemia, hypoalbumenemia, pancytopenia. History of Any Multi-Drug Resistant Organisms: None Reported Past Surgical History: Appendectomy, Orthopedic Surgery Additional Past Surgical History / Comment(s): Left knee surgeries-3 arthroscopic and one open, EGDs, colonoscopies, R sided lithotripsy. Past Anesthesia/Blood Transfusion Reactions: No Reported Reaction Additional Past Anesthesia/Blood Transfusion Reaction / Comm: Pt has received blood in past without reaction. Past Psychological History: Depression Additional Psychological History / Comment(s): Pt resides with her boyfriend and 2 children, one which is an adult. Pt is independent. 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 Smoking Status: Current every day smoker Past Alcohol Use History: Occasional Additional Past Alcohol Use History / Comment(s): Pt started smoking in 1994 and is a half a ppd smoker. She has hx of ETOH abuse. She uses to drink a fifth of vodka a day but is down to 1/2 pint a day. Past Drug Use History: Marijuana Additional Drug Use History / Comment(s): Pt states she takes a few "hits" off a joint daily. - Past Family History Mother Family Medical History: Diabetes Mellitus Additional Family Medical History / Comment(s): Borderline HTN Brother(s) Family Medical History: Diabetes Mellitus Father Family Medical History: Hypertension Additional Family Medical History / Comment(s): BOARDERLINE DM Medications and Allergies Home Medications Medication Instructions Recorded Confirmed Type Acetaminophen/Diphenhydramine 2 tab PO HS 01/01/20 02/02/20 History [Tylenol PM 500-25mg] Potassium Chloride ER [K-Dur 20] 20 meq PO DAILY 15 Days #15 tab 01/03/20 02/02/20 Rx Famotidine/Ca Carb/Mag Hydrox 1 tab PO BID PRN 02/02/20 02/02/20 History [Pepcid Complete Tablet Chew] Hydrocortisone/Pramoxine 1 applicator RECTAL BID PRN 02/02/20 02/02/20 History [Proctofoam-Hc 1%-1% Foam] Allergies Allergy/AdvReac Type Severity Reaction Status Date / Time cephalexin monohydrate Allergy Rash/Hives Verified 02/02/20 07:19 [From Keflex] codeine Allergy Rash/Hives Verified 02/02/20 07:19 Physical Exam Vitals: Vital Signs Temp Pulse Pulse Resp BP BP Pulse Ox 02/02/20 08:19 98.7 F 99 12 107/54 97 02/02/20 03:12 90 15 116/61 97 02/02/20 01:40 98.3 F 90 16 113/58 96 02/02/20 00:54 98.4 F 95 16 99/53 97 02/01/20 22:24 97.6 F 72 16 114/56 99 02/01/20 19:04 97.9 F 108 H 18 126/85 98 Intake and Output 02/01/20 02/02/20 02/02/20 22:59 06:59 14:59 Other: Voiding Method Toilet # Voids 1 2 Weight 48.534 kg 48.534 kg On physical examination, patient appears comfortable in no apparent distress. HEAD: Normocephalic, atraumatic. EYES: No scleral icterus. No conjunctival injection. MOUTH: No lesions, tongue midline. NECK: Trachea midline, no gross abnormalities. CHEST: Decreased air and all toro. HEART: S1-S2 appreciated. ABDOMEN: Soft. Bowel sounds are positive. No organomegaly. No guarding or ri gidity. EXTREMITIES: No pedal edema. SKIN: No rashes, no jaundice. NEUROLOGIC: Alert and oriented x3. No focal deficits. Results CBC & Chem 7: 02/02/20 07:10 02/02/20 07:10 Labs: Abnormal Lab Results - Last 24 Hours (Table) 02/01/20 02/01/20 02/01/20 Range/Units 20:03 20:03 22:45 RBC 2.84 L (3.80-5.40) m/uL Hgb 11.3 L (11.4-16.0) gm/dL MCV 124.6 H D (80.0-100.0) fL MCH 39.8 H (25.0-35.0) pg MCHC (31.0-37.0) g/dL RDW 17.4 H (11.5-15.5) % Plt Count 80 L (150-450) k/uL Macrocytosis Marked A Potassium 3.0 L (3.5-5.1) mmol/L BUN 4 L (7-17) mg/dL Creatinine 0.39 L (0.52-1.04) mg/dL Calcium (8.4-10.2) mg/dL Total Bilirubin 1.5 H (0.2-1.3) mg/dL AST 63 H (14-36) U/L Alkaline Phosphatase 207 H (38-126) U/L Albumin 3.3 L (3.5-5.0) g/dL Ur Specific [place] >1.050 H (1.001-1.035) Urine Protein Trace H (Negative) Urine Blood Moderate H (Negative) Urine RBC 22 H (0-5) /hpf Ur Squamous Epith Cells 6 H (0-4) /hpf Urine Mucus Rare H (None) /hpf 02/02/20 02/02/20 Range/Units 07:10 07:10 RBC 2.64 L (3.80-5.40) m/uL Hgb 10.5 L (11.4-16.0) gm/dL MCV 129.8 H D (80.0-100.0) fL MCH 39.9 H (25.0-35.0) pg MCHC 30.7 L (31.0-37.0) g/dL RDW 17.3 H (11.5-15.5) % Plt Count (150-450) k/uL Macrocytosis Marked A Potassium (3.5-5.1) mmol/L BUN 5 L (7-17) mg/dL Creatinine 0.44 L (0.52-1.04) mg/dL Calcium 7.7 L (8.4-10.2) mg/dL Total Bilirubin (0.2-1.3) mg/dL AST (14-36) U/L Alkaline Phosphatase (38-126) U/L Albumin (3.5-5.0) g/dL Ur Specific [place] (1.001-1.035) Urine Protein (Negative) Urine Blood (Negative) Urine RBC (0-5) /hpf Ur Squamous Epith Cells (0-4) /hpf Urine Mucus (None) /hpf CT scan - abdomen: report reviewed Assessment and Plan (1) Rectal pain Narrative/Plan: 39-year-old female with multiple medical comorbidities including he morrhoidectomy in July 2019 after evaluation for anemia and GI bleed for which she previously underwent endoscopic evaluation in 05/13/2019 with EGD showing gastritis and internal and external hemorrhoids noted on colonoscopy. She reports constipation and rectal pain over the past 2 weeks. She was seen by the general surgery service and given treatment for a fissure and told to follow-up with colorectal surgery, instead she presented to the hospital with similar complaints. Current Visit: Yes Status: Acute Code(s): K62.89 - OTHER SPECIFIED DISEASES OF ANUS AND RECTUM SNOMED Code(s): 17462107 (2) Alcoholic liver disease Current Visit: No Status: Acute Code(s): K70.9 - ALCOHOLIC LIVER DISEASE, UNSPECIFIED SNOMED Code(s): 32851785 (3) Anal fissure Current Visit: No Status: Acute Code(s): K60.2 - ANAL FISSURE, UNSPECIFIED SNOMED Code(s): 31362124 Plan: Supportive care Okay for diet as tolerated Lidocaine jelly rectally twice daily and before bowel movements Stool softener with MiraLAX Agree with referral to colorectal surgery if no improvement in symptoms No plan for endoscopic evaluation as patient underwent EGD and colonoscopy in 05/2019, will defer to colorectal surgery for further endoscopic evaluation No plans for further intervention at this time Thank you for allowing us to participate in the care of the patient
[2020-02-03] MEDS ORDERED: POTASSIUM CHLORIDE ER 20 MEQ TAB.ER PO SCH (09:00)
[2020-02-03] MEDS: polyethylene glycoL 3350 17 GM POWD.PACK PO SCH (09:00)
[2020-02-03] MEDS: LIDOCAINE 2% GEL 30 ML TUBE TOPICAL SCH (09:00)
[2020-02-03] MEDS: [UNRECOGNIZED DRUG - OTHER] RECTAL SCH (09:02)
[2020-02-03] MEDS: PRAMOXINE RECTAL SCH (09:02)
[2020-02-03] MEDS: HYDROCORTISONE RECTAL SCH (09:02)
[2020-02-03 09:15] VITALS: BP 94/55; PULSE 93; RESP 15; TEMP 97.5
[2020-02-03 14:13] LABS: % Iron Saturation 73.98 (12.00-45.00)
== END 2020-02-03 12:25 | disposition home or self-care (01) ==
LOC: EC 19:02 → 1SOBS 23:43
PROVIDERS: ADMIT Hospitalist; ATTEND Hospitalist
DX: K60.2 Anal fissure, unspecified (principal); K21.9 Gastro-esophageal reflux disease without esophagitis; F10.10 Alcohol abuse, uncomplicated; K70.9 Alcoholic liver disease, unspecified; K76.0 Fatty (change of) liver, not elsewhere classified; Z87.19 Personal history of other diseases of the digestive system; Z87.442 Personal history of urinary calculi; G62.9 Polyneuropathy, unspecified; Z03.818 Encounter for observation for suspected exposure to other biological agents ruled out; Z98.890 Other specified postprocedural states; F17.210 Nicotine dependence, cigarettes, uncomplicated; F32.9 Major depressive disorder, single episode, unspecified; Z83.3 Family history of diabetes mellitus; Z87.09 Personal history of other diseases of the respiratory system; Z82.49 Family history of ischemic heart disease and other diseases of the circulatory system; K64.4 Residual hemorrhoidal skin tags; K70.10 Alcoholic hepatitis without ascites; D53.9 Nutritional anemia, unspecified; D69.6 Thrombocytopenia, unspecified; K64.8 Other hemorrhoids; Z79.899 Other long term (current) drug therapy; Z88.1 Allergy status to other antibiotic agents; Z88.5 Allergy status to narcotic agent
CPT/HCPCS: 96376 ×2; 96361; 96374; 96375; 99284; 36415; 80053; 80048; 82607; 83540; 83550; 83690; 85025 ×2; 81001; 81025; 74177; G0378 ×2; U0003; J2270 ×3; J2405; J1885; Q9967 ×2

== ENCOUNTER 2020-05-11 22:58 | Emergency (ER) | payer OTHER ==
[2020-05-11 23:02] VITALS: TEMP 97.9
[2020-05-12] MEDS ORDERED: KETOROLAC 15 MG/ML 1 ML VIAL IVP STA (00:14)
[2020-05-12] MEDS ORDERED: METOCLOPRAMIDE 5 MG/ML 2 ML VIAL IVP STA (00:14)
[2020-05-12] MEDS ORDERED: SODIUM CHLORIDE 0.9% 1,000 ML IV ONE (00:14)
[2020-05-12] MEDS ORDERED: diphenhydrAMINE 50 MG/ML 1 ML VIAL IVP STA (00:14)
--- NOTE | 2020-05-12 00:20 | ED ---
Headache HPI - General Chief Complaint: Headache Stated Complaint: Dizziness Time Seen by Provider: 05/11/20 23:13 Mode of arrival: ambulatory Limitations: no limitations - History of Present Illness Initial Comments: 39-year-old female patient presents to the emergency department today for evaluation of headache for the last 2 days. Patient states that she has tried Tylenol and a medication from [employer] called "222s", she states containing aspirin, codeine, and caffeine. She states that these medications are not helping her headaches. States the pain is located in the back of her head. Denies any eye pain or temporal pain. States she is having some blurred vision and nausea with this. States she is sensitive to light. Patient states that she has had similar headaches in the past but this one feels worse. States it started mild and gradually worsened. She denies any numbness, tingling, weakness or extremities. Denies any recent head injury. Denies fever, chills, neck pain, or neck stiffness. Patient denies any recent rash, cough, shortness of breath, chest pain, abdominal pain, nausea, vomiting, diarrhea, constipation, back pain, dizziness, weakness, hematuria, dysuria, urinary urgency, urinary frequency or any other complaints. - Related Data Home Medications Medication Instructions Recorded Confirmed Acetaminophen/Diphenhydramine 1 tab PO DAILY PRN 05/11/20 05/11/20 [Tylenol PM 500-25mg] Famotidine [Pepcid AC] 10 mg PO TID PRN 05/11/20 05/11/20 Allergies Allergy/AdvReac Type Severity Reaction Status Date / Time cephalexin monohydrate Allergy Rash/Hives Verified 05/11/20 23:29 [From Keflex] codeine Allergy Rash/Hives Verified 05/11/20 23:29 Review of Systems ROS Statement: Those systems with pertinent positive or pertinent negative responses have been documented in the HPI. ROS Other: All systems not noted in ROS Statement are negative. Past Medical History Past Medical History: GERD/Reflux Additional Past Medical History / Comment(s): Hepatic steatosis, ETOH abuse, gastritis, duodenitis, lower GI bleed, colitis, hemorrhoids, bronchitis, R side nephrolithiasis with surgery, bilateral ovarian cysts, neuropathy bilateral hands/legs and tops of both feet, hypokalemia, hypoalbumenemia, pancytopenia. History of Any Multi-Drug Resistant Organisms: None Reported Past Surgical History: Appendectomy, Orthopedic Surgery Additional Past Surgical History / Comment(s): Left knee surgeries-3 arthroscopic and one open, EGDs, colonoscopies, R sided lithotripsy. Past Anesthesia/Blood Transfusion Reactions: No Reported Reaction Additional Past Anesthesia/Blood Transfusion Reaction / Comment(s): Pt has received blood in past without reaction. Past Psychological History: Depression Smoking Status: Current every day smoker Past Alcohol Use History: Occasional Past Drug Use History: Marijuana - Past Family History Mother Family Medical History: Diabetes Mellitus Additional Family Medical History / Comment(s): Borderline HTN Brother(s) Family Medical History: Diabetes Mellitus Father Family Medical History: Hypertension Additional Family Medical History / Comment(s): BOARDERLINE DM General Exam Limitations: no limitations General appearance: alert, in no apparent distress, other (This is a well- developed, well-nourished adult female patient in no acute distress. Vital signs upon presentation are temperature 97.9F, pulse 103, respirations 20, blood pressure 130/82, pulse ox 97% on room air.) Eye exam: Present: normal appearance, PERRL, EOMI. Absent: scleral icterus, conjunctival injection, nystagmus, periorbital swelling ENT exam: Present: normal exam, normal oropharynx, mucous membranes moist Neck exam: Present: normal inspection, full ROM. Absent: tenderness, meningismus, lymphadenopathy Respiratory exam: Present: normal lung sounds bilaterally. Absent: respiratory distress, wheezes, rales, rhonchi, stridor Cardiovascular Exam: Present: regular rate, normal rhythm, normal heart sounds. Absent: systolic murmur, diastolic murmur, rubs, gallop, clicks Neurological exam: Present: alert, oriented X3, CN II-XII intact, other (Strength in all 4 extremities is 5/5) Psychiatric exam: Present: normal affect, normal mood Skin exam: Present: warm, dry, intact, normal color. Absent: rash Course Vital Signs 05/11/20 23:00 Temperature 97.9 F Pulse Rate 103 H Respiratory 20 Rate Blood Pressure 130/82 O2 Sat by Pulse 97 Oximetry Medical Decision Making - Medical Decision Making 39-year-old female patient presents to the emergency department today for evaluation of headache. Physical examination is unremarkable. Patient denies thunderclap headache or this being the worst headache of her life. She is afebrile. Vital signs within normal range. She was given IV fluids, medications. Upon reevaluation she does report improvement of symptoms. She will be discharged home to follow-up with her primary care physician for recheck in 1-2 days. Return parameters were discussed in detail. She verbalizes understanding and agrees with this plan. Disposition Clinical Impression: Headache Disposition: HOME SELF-CARE Condition: Good Instructions (If sedation given, give patient instructions): Acute Headache (ED) Additional Instructions: Increase fluids. Rest. Follow-up through primary care physician for recheck in 1-2 days. Return to the emergency department immediately for any new, worsening, or concerning symptoms. Is patient prescribed a controlled substance at d/c from ED?: No Referrals: Cecil Cárdenas MD [Primary Care Provider] - 1-2 days Time of Disposition: 01:16
[2020-05-12 01:31] VITALS: BP 128/72; PULSE 98; RESP 18
== END 2020-05-12 01:31 | disposition home or self-care (01) ==
LOC: EC 22:58
DX: R51.9 Headache, unspecified (principal); K21.9 Gastro-esophageal reflux disease without esophagitis; F17.200 Nicotine dependence, unspecified, uncomplicated
CPT/HCPCS: 99283; 96374; 96375 ×2; 96361; J1200; J2765; J1885

== ENCOUNTER → 2020-06-10 | Outpatient (CLI) | payer OTHER ==
--- NOTE | 2020-06-10 14:52 | XR ---
EXAMINATION TYPE: XR knee complete RT DATE OF EXAM: 06/10/2020 CLINICAL HISTORY: Falling injury 4 days ago with pain and bruising. TECHNIQUE: Three views of the right knee are obtained. COMPARISON: Prior right knee x-ray April 11, 2014 FINDINGS: There is no acute fracture/dislocation evident in right knee. The tri-compartment joint s paces appear within normal limits without significant interval change from prior. The overlying soft tissue appears unremarkable. IMPRESSION: There is no acute fracture or dislocation in the right knee. No significant change from prior.
== END | disposition home or self-care (01) ==
LOC: RADXRMAIN 14:34
PROVIDERS: ATTEND Emergency Medicine
DX: S80.01XA Contusion of right knee, initial encounter (principal)

== ENCOUNTER 2020-07-19 00:18 | Emergency (ER) | payer OTHER ==
[2020-07-19 00:26] VITALS: TEMP 98.5
[2020-07-19] MEDS ORDERED: HYDROmorphone 0.5 MG/0.5 ML SYRINGE IVP STA ×3 (01:33→03:36)
[2020-07-19] MEDS ORDERED: SODIUM CHLORIDE 0.9% 1,000 ML IV STA (01:33)
--- NOTE | 2020-07-19 01:43 | ED ---
General Adult HPI - General Chief complaint: Abdominal Pain Stated complaint: Rt side pain Time Seen by Provider: 07/19/20 00:48 Source: patient Mode of arrival: ambulatory Limitations: no limitations - History of Present Illness Initial comments: 40-year-old female with a complicated past medical history including alcoholic abuse, hepatic steatosis, gastritis, duodenitis, colitis, hemorrhoids, kidney stones presents to the emergency room for right-sided lower abdominal pain. This started approximately one hour prior to arrival. 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 She states it is a pinching pain. Denies it radiating to her back. Patient is not sure if she had an appendectomy. She reports that one person told her she did and another told her she didn't.Patient has no other complaints at this time including shortness of breath, chest pain, nausea or vomiting, headache, or visual changes. - Related Data Home Medications Medication Instructions Recorded Confirmed Acetaminophen/Diphenhydramine 1 tab PO DAILY PRN 05/11/20 05/11/20 [Tylenol PM 500-25mg] Famotidine [Pepcid AC] 10 mg PO TID PRN 05/11/20 05/11/20 Allergies Allergy/AdvReac Type Severity Reaction Status Date / Time cephalexin monohydrate Allergy Rash/Hives Verified 07/19/20 00:26 [From Keflex] codeine Allergy Rash/Hives Verified 07/19/20 00:26 Review of Systems ROS Statement: Those systems with pertinent positive or pertinent negative responses have been documented in the HPI. ROS Other: All systems not noted in ROS Statement are negative. Past Medical History Past Medical History: GERD/Reflux Additional Past Medical History / Comment(s): Hepatic steatosis, ETOH abuse, gastritis, duodenitis, lower GI bleed, colitis, hemorrhoids, bronchitis, R side nephrolithiasis with surgery, bilateral ovarian cysts, neuropathy bilateral hands/legs and tops of both feet, hypokalemia, hypoalbumenemia, pancytopenia. History of Any Multi-Drug Resistant Organisms: None Reported Past Surgical History: Appendectomy, Orthopedic Surgery Additional Past Surgical History / Comment(s): Left knee surgeries-3 arthroscopic and one open, EGDs, colonoscopies, R sided lithotripsy. Past Anesthesia/Blood Transfusion Reactions: No Reported Reaction Additional Past Anesthesia/Blood Transfusion Reaction / Comment(s): Pt has r eceived blood in past without reaction. Past Psychological History: Depression Smoking Status: Current every day smoker Past Alcohol Use History: Occasional Past Drug Use History: Marijuana - Past Family History Mother Family Medical History: Diabetes Mellitus Additional Family Medical History / Comment(s): Borderline HTN Brother(s) Family Medical History: Diabetes Mellitus Father Family Medical History: Hypertension Additional Family Medical History / Comment(s): BOARDERLINE DM General Exam Limitations: no limitations General appearance: alert Head exam: Present: atraumatic, normal inspection Eye exam: Present: normal appearance, PERRL, EOMI. Absent: scleral icterus ENT exam: Present: normal exam, mucous membranes moist Neck exam: Present: normal inspection. Absent: tenderness, meningismus, lymphadenopathy Respiratory exam: Present: normal lung sounds bilaterally. Absent: respiratory distress, wheezes, rales, rhonchi, stridor Cardiovascular Exam: Present: regular rate, normal rhythm, normal heart sounds. Absent: systolic murmur, diastolic murmur, rubs, gallop, clicks GI/Abdominal exam: Present: soft, tenderness (Tenderness noted right lower quadrant, no tenderness in the upper abdomen or left lower quadrant), normal bowel sounds. Absent: distended, guarding, rebound, rigid Neurological exam: Present: alert Course Vital Signs 07/19/20 07/19/20 00:24 02:27 Temperature 98.5 F Pulse Rate 96 72 Respiratory 20 19 Rate Blood Pressure 146/77 109/57 O2 Sat by Pulse 96 98 Oximetry Medical Decision Making - Medical Decision Making Vitals are stable. HPI physical exam as documented. Patient presents for right lower quadrant pain, unsure of appendectomy status. Patient does have mild tenderness to palpation. CBC does reveal chronic thrombocytopenia and macrocytosis. Patient has a history of alcoholism. Hemoglobin stable. CMP also reveals a potassium of 3.1, this was replaced orally. Urinalysis is negative. CT abdomen and pelvis shows hepatic steatosis and hepatosplenomegaly otherwise no acutely abnormal findings. Patient was given pain medication and reevaluated. She had significant improvement in symptoms. Feels much better at this time. Serial abdominal exam revealed a nontender abdomen. Patient is stable for discharge home to follow up with her doctor. She will return here for any worsening symptoms. - Lab Data Result diagrams: 07/19/20 01:25 07/19/20 01:25 Lab Results 07/19/20 07/19/20 07/19/20 Range/Units 01:25 01:25 01:25 WBC 5.2 (3.8-10.6) k/uL RBC 3.61 L (3.80-5.40) m/uL Hgb 13.1 (11.4-16.0) gm/dL Hct 41.0 (34.0-46.0) % MCV 113.3 H (80.0-100.0) fL MCH 36.3 H (25.0-35.0) pg MCHC 32.0 (31.0-37.0) g/dL RDW 16.1 H (11.5-15.5) % Plt Count 65 L (150-450) k/uL MPV 9.4 Lymphocytes % 29 % Monocytes % 6 % Eosinophils % 2 % Basophils % 0 % Neutrophils # 3.1 (1.3-7.7) k/uL Lymphocytes # 1.5 (1.0-4.8) k/uL Monocytes # 0.3 (0-1.0) k/uL Eosinophils # 0.1 (0-0.7) k/uL Basophils # 0.0 (0-0.2) k/uL Manual Slide Review Performed Anisocytosis Slight Macrocytosis Marked A Sodium (137-145) mmol/L Potassium (3.5-5.1) mmol/L Chloride (98-107) mmol/L Carbon Dioxide (22-30) mmol/L Anion Gap mmol/L BUN (7-17) mg/dL Creatinine (0.52-1.04) mg/dL Est GFR (CKD-EPI)AfAm (>60 ml/min/1.73 sqM) Est GFR (CKD-EPI)NonAf (>60 ml/min/1.73 sqM) Glucose (74-99) mg/dL Calcium (8.4-10.2) mg/dL Total Bilirubin (0.2-1.3) mg/dL AST (14-36) U/L ALT (4-34) U/L Alkaline Phosphatase (38-126) U/L Total Protein (6.3-8.2) g/dL Albumin (3.5-5.0) g/dL Amylase (30-110) U/L Lipase (23-300) U/L Urine Color Yellow Urine Appearance Clear (Clear) Urine pH 6.5 (5.0-8.0) Ur Specific Thompson 1.018 (1.001-1.035) Urine Protein Negative (Negative) Urine Glucose (UA) Negative (Negative) Urine Ketones Negative (Negative) Urine Blood Negative (Negative) Urine Nitrite Negative (Negative) Urine Bilirubin Negative (Negative) Urine Urobilinogen 2.0 (<2.0) mg/dL Ur Leukocyte Esterase Negative (Negative) Urine HCG, Qual Not Detected (Not Detectd) 07/19/20 Range/Units 01:25 WBC (3.8-10.6) k/uL RBC (3.80-5.40) m/uL Hgb (11.4-16.0) gm/dL Hct (34.0-46.0) % MCV (80.0-100.0) fL MCH (25.0-35.0) pg MCHC (31.0-37.0) g/dL RDW (11.5-15.5) % Plt Count (150-450) k/uL MPV Lymphocytes % % Monocytes % % Eosinophils % % Basophils % % Neutrophils # (1.3-7.7) k/uL Lymphocytes # (1.0-4.8) k/uL Monocytes # (0-1.0) k/uL Eosinophils # (0-0.7) k/uL Basophils # (0-0.2) k/uL Manual Slide Review Anisocytosis Macrocytosis Sodium 139 (137-145) mmol/L Potassium 3.1 L (3.5-5.1) mmol/L Chloride 103 (98-107) mmol/L Carbon Dioxide 23 (22-30) mmol/L Anion Gap 13 mmol/L BUN 6 L (7-17) mg/dL Creatinine 0.51 L (0.52-1.04) mg/dL Est GFR (CKD-EPI)AfAm >90 (>60 ml/min/1.73 sqM) Est GFR (CKD-EPI)NonAf >90 (>60 ml/min/1.73 sqM) Glucose 105 H (74-99) mg/dL Calcium 9.6 (8.4-10.2) mg/dL Total Bilirubin 1.0 (0.2-1.3) mg/dL AST 82 H (14-36) U/L ALT 29 (4-34) U/L Alkaline Phosphatase 136 H (38-126) U/L Total Protein 8.6 H (6.3-8.2) g/dL Albumin 4.7 (3.5-5.0) g/dL Amylase 49 (30-110) U/L Lipase 166 (23-300) U/L Urine Color Urine Appearance (Clear) Urine pH (5.0-8.0) Ur Specific Thompson (1.001-1.035) Urine Protein (Negative) Urine Glucose (UA) (Negative) Urine Ketones (Negative) Urine Blood (Negative) Urine Nitrite (Negative) Urine Bilirubin (Negative) Urine Urobilinogen (<2.0) mg/dL Ur Leukocyte Esterase (Negative) Urine HCG, Qual (Not Detectd) Disposition Clinical Impression: Abdominal pain Disposition: HOME SELF-CARE Condition: Good Instructions (If sedation given, give patient instructions): Abdominal Pain (ED) Additional Instructions: Please follow up with your doctor. Make sure to have your potassium lab repeated within the next week. Return to the emergency room for any worsening symptoms. Is patient prescribed a controlled substance at d/c from ED?: No Referrals: Cecil Cárdenas MD [Primary Care Provider] - 1-2 days Time of Disposition: 02:54
[2020-07-19 01:47] LABS: ALT 29 U/L (4-34); AST 82 U/L (14-36); African American GFR (CKD) >90 (>60 ml/min/1.73 sqM); Albumin 4.7 g/dL (3.5-5.0); Alkaline Phosphatase 136 U/L (38-126); Amylase 49 U/L (30-110); Anion Gap 13 mmol/L; Appearance,Urine Clear (Clear); Bilirubin,Urine Negative (Negative); Blood Urea Nitrogen 6 mg/dL (7-17); Blood,Urine Negative (Negative); Calcium 9.6 mg/dL (8.4-10.2); Carbon Dioxide 23 mmol/L (22-30); Chloride 103 mmol/L (98-107); Color,Urine Yellow; Glucose 105 mg/dL (74-99); Glucose,Urine (UA) Negative (Negative); Ketones,Urine Negative (Negative); Leukocyte Esterase,Urine Negative (Negative); Lipase 166 U/L (23-300); Nitrite,Urine Negative (Negative); Non-African American GFR(CKD) >90 (>60 ml/min/1.73 sqM); PH, Urine 6.5 (5.0-8.0); Protein,Urine Negative (Negative); Sodium 139 mmol/L (137-145); Specific Gravity,Urine 1.018 (1.001-1.035); Total Protein 8.6 g/dL (6.3-8.2)
[2020-07-19 01:55] LABS: Potassium 3.1 mmol/L (3.5-5.1)
[2020-07-19] MEDS ORDERED: POTASSIUM CHLORIDE ER 20 MEQ TAB.ER PO STA (02:25)
[2020-07-19 02:27] LABS: Anisocytosis Slight; Basophils % (A) 0 %; Eosinophils # (A) 0.1 k/uL (0-0.7); Eosinophils % (A) 2 %; HGB 13.1 gm/dL (11.4-16.0); Lymphocytes # (A) 1.5 k/uL (1.0-4.8); Lymphocytes % (A) 29 %; MCH 36.3 pg (25.0-35.0); MCV 113.3 fL (80.0-100.0); Macrocytosis Marked; Mean Platelet Volume 9.4; Monocytes # (A) 0.3 k/uL (0-1.0); Monocytes % (A) 6 %; Neutrophils # (A) 3.1 k/uL (1.3-7.7); RBC 3.61 m/uL (3.80-5.40); RDW 16.1 % (11.5-15.5); WBC 5.2 k/uL (3.8-10.6)
[2020-07-19 02:28] VITALS: PULSE 72; RESP 19
[2020-07-19] MEDS ORDERED: KETOROLAC 15 MG/ML 1 ML VIAL IVP STA (02:29)
[2020-07-19 02:30] VITALS: BP 109/57
[2020-07-19 02:41] LABS: Platelet Count 65 k/uL (150-450)
--- NOTE | 2020-07-19 02:44 | CT ---
EXAM: CT Abdomen and Pelvis With Intravenous Contrast CLINICAL HISTORY: ITS.REASON CT Reason: pain TECHNIQUE: Axial computed tomography images of the abdomen and pelvis with intravenous contrast. CTDI is 12.57 mGy and DLP is 534.5 mGy-cm. This CT exam was performed using one or more of the following dose reduction techniques: automated exposure control, adjustment of the mA and/or kV according to patient size, and/or use of iterative reconstruction technique. COMPARISON: 02/01/2020. FINDINGS: ABDOMEN: Liver: Hepatosplenomegaly. Low-attenuation in the liver. Gallbladder and bile ducts: Mild gallbladder distention. No gallstones. No ductal dilation. Pancreas: Unremarkable. No mass. No ductal dilation. 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 Adrenals: Unremarkable. No mass. Kidneys and ureters: Small cyst upper pole right kidney. No hydronephrosis. Stomach and bowel: Unremarkable. No obstruction. No mucosal thickening. PELVIS: Appendix: Appendectomy. Bladder: Unremarkable. No mass. Reproductive: Unremarkable as visualized. ABDOMEN and PELVIS: Intraperitoneal space: Unremarkable. No free air. No significant fluid collection. Retroperitoneal space: There is some mild hazy stranding/edema in the retroperitoneum. Mild hazy stranding along the right paracolic gutter. Findings have improved from prior exam. Bones/joints: No acute fracture. No dislocation. Soft tissues: Unremarkable. Vasculature: Dilated portal veins. Lymph nodes: Unremarkable. No enlarged lymph nodes. IMPRESSION: 1. Hepatic steatosis. 2. Hepatosplenomegaly.
== END 2020-07-19 04:29 | disposition home or self-care (01) ==
LOC: EC 00:18
DX: R10.31 Right lower quadrant pain (principal); K21.9 Gastro-esophageal reflux disease without esophagitis; Z88.1 Allergy status to other antibiotic agents; Z88.5 Allergy status to narcotic agent
CPT/HCPCS: 99284 ×2; 96374 ×2; 96375 ×2; 96376 ×3; 96361 ×3; 36415; 80053; 82150; 83690; 83735; 85025; 81003; 81025; 74177; J1885; J1170; Q9967

== ENCOUNTER 2020-08-06 07:24 | Emergency (ER) | payer OTHER ==
[2020-08-06 07:29] VITALS: BP 132/80; PULSE 95; RESP 16; TEMP 97.9
--- NOTE | 2020-08-06 07:57 | XR ---
Left hand HISTORY: Pain and swelling 3 views of left hand Bone mineralization, joint spaces and alignment are maintained. No fracture or dislocation. There is soft tissue swelling. IMPRESSION: Soft tissue swelling
--- NOTE | 2020-08-06 08:10 | ED ---
Upper Extremity HPI - General Chief Complaint: Extremity Injury, Upper Stated Complaint: Wrist pain Time Seen by Provider: 08/06/20 07:39 Source: patient Mode of arrival: ambulatory Limitations: no limitations - History of Present Illness Initial Comments: Patient is a 40-year-old female presenting to the emergency Department with complaints of pain on her left hand but increasing over the past few days. 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 Patient denies any falls or trauma that she is aware of. She denies any previous surgeries or injuries to left hand. She is right-hand dominant. She denies any fever or chills, no redness to the area. She has no further complaints at this time. - Related Data Home Medications Medication Instructions Recorded Confirmed Acetaminophen/Diphenhydramine 1 tab PO DAILY PRN 05/11/20 05/11/20 [Tylenol PM 500-25mg] Famotidine [Pepcid AC] 10 mg PO TID PRN 05/11/20 05/11/20 Allergies Allergy/AdvReac Type Severity Reaction Status Date / Time cephalexin monohydrate Allergy Rash/Hives Verified 08/06/20 07:29 [From Keflex] codeine Allergy Rash/Hives Verified 08/06/20 07:29 Review of Systems ROS Statement: Those systems with pertinent positive or pertinent negative responses have been documented in the HPI. ROS Other: All systems not noted in ROS Statement are negative. Past Medical History Past Medical History: GERD/Reflux Additional Past Medical History / Comment(s): Hepatic steatosis, ETOH abuse, gastritis, duodenitis, lower GI bleed, colitis, hemorrhoids, bronchitis, R side nephrolithiasis with surgery, bilateral ovarian cysts, neuropathy bilateral hands/legs and tops of both feet, hypokalemia, hypoalbumenemia, pancytopenia. History of Any Multi-Drug Resistant Organisms: None Reported Past Surgical History: Appendectomy, Orthopedic Surgery Additional Past Surgical History / Comment(s): Left knee surgeries-3 arthroscopic and one open, EGDs, colonoscopies, R sided lithotripsy. Past Anesthesia/Blood Transfusion Reactions: No Reported Reaction Additional Past Anesthesia/Blood Transfusion Reaction / Comment(s): Pt has received blood in past without reaction. Past Psychological History: Depression Smoking Status: Current every day smoker Past Alcohol Use History: Daily Past Drug Use History: Marijuana - Past Family History Mother Family Medical History: Diabetes Mellitus Additional Family Medical History / Comment(s): Borderline HTN Brother(s) Family Medical History: Diabetes Mellitus Father Family Medical History: Hypertension Additional Family Medical History / Comment(s): BOARDERLINE DM General Exam - General Exam Comments Initial Comments: GENERAL: Patient is well-developed and well-nourished. Patient is nontoxic and in no acute distress. HEAD: Atraumatic, normocephalic. EYES: Pupils equal round and reactive to light, extraocular movements intact, sclera anicteric, conjunctiva are normal. Eyelids were unremarkable. ENT: TMs normal, nares patent, oropharynx clear without exudates. Moist mucous membranes. NECK: Normal range of motion, supple without lymphadenopathy or JVD. LUNGS: Unlabored respirations. Breath sounds clear to auscultation bilaterally and equal. No wheezes rales or rhonchi. HEART: Regular rate and rhythm without murmurs, rubs or gallops. ABDOMEN: Soft, nontender, normoactive bowel sounds. No guarding, no rebound. No masses appreciated. : Deferred MUSCULOSKELETAL: Patient has mild pain with palpation at the base of the first near the metacarpal of the left hand. There is some bruising to this area, no erythema or signs of infection. Patient does have full range of motion of all 5 fingers. She is neurovascular intact. Pain at the wrist, no snuffbox tenderness. Normal extremities with adequate strength and normal range of motion, no pitting or edema. No clubbing or cyanosis. NEUROLOGICAL: Patient is alert and oriented x 3. Normal speech, normal gait. PSYCH: Normal mood, normal affect. SKIN: Warm, Dry, normal turgor, no rashes or lesions noted. Limitations: no limitations Course Vital Signs 08/06/20 07:27 Temperature 97.9 F Pulse Rate 95 Respiratory 16 Rate Blood Pressure 132/80 O2 Sat by Pulse 98 Oximetry Medical Decision Making - Medical Decision Making Patient is a 40-year-old female here for left hand pain. She does have some mild swelling and bruising to the area, no signs of infection. X-rays revealed no acute fractures dislocations. I discussed with patient this is most likely a contusion. I recommend icing to the area, ibuprofen for discomfort. She is stable for discharge. She can follow-up with her regular doctor. Disposition Clinical Impression: Contusion of left hand Disposition: HOME SELF-CARE Condition: Stable Instructions (If sedation given, give patient instructions): Contusion in Adults (ED) Additional Instructions: Please return to the Emergency Department if symptoms worsen or any other concerns. Recommend icing to the area, ibuprofen for any discomfort. Follow up with her regular doctor. Is patient prescribed a controlled substance at d/c from ED?: No Referrals: Cecil Cárdenas MD [Primary Care Provider] - 1-2 days
== END 2020-08-06 08:24 | disposition home or self-care (01) ==
LOC: EC 07:24
DX: S60.222A Contusion of left hand, initial encounter (principal); K21.9 Gastro-esophageal reflux disease without esophagitis; Z79.899 Other long term (current) drug therapy; F17.200 Nicotine dependence, unspecified, uncomplicated; Z88.1 Allergy status to other antibiotic agents; Z88.5 Allergy status to narcotic agent; Z90.49 Acquired absence of other specified parts of digestive tract; W22.8XXA Striking against or struck by other objects, initial encounter
CPT/HCPCS: 99283

== ENCOUNTER 2020-11-09 09:10 | Emergency (ER) | payer OTHER ==
[2020-11-09 09:13] VITALS: TEMP 98.1
[2020-11-09] MEDS ORDERED: ONDANSETRON 4 MG/2 ML VIAL IVP STA (09:53)
--- NOTE | 2020-11-09 10:14 | ED ---
General Adult HPI - General Chief complaint: Headache Stated complaint: Coughing up blood Time Seen by Provider: 11/09/20 09:10 Source: patient, RN notes reviewed, old records reviewed Mode of arrival: ambulatory Limitations: no limitations - History of Present Illness Initial comments: This is a 40-year-old female who presents to the emergency department complaining of having had a headache for 3 days. Patient states the posterior aspect of her head. Patient states she's had this multiple times before but today's headache was worse because it has lasted 3 days and normally has gone on the first day. Patient denies any photophobia. Patient states she is nauseated. Patient denies any numbness weakness. Patient denies any fevers chills or cough per patient's any neck stiffness. Patient denies any abdominal pain. Patient denies any back pain. Patient denies chest pain difficulty breathing. Patient states she did have some coughing today and after she had a coughing episode she did cough up blood on one occasion it was not a lot of b lood according to her. Patient states it only happened one time. Patient denies being short of breath. - Related Data Home Medications Medication Instructions Recorded Confirmed Bentyl (Unknown Dose) 1 dose PO ONCE 11/09/20 11/09/20 Omeprazole [PriLOSEC] 20 mg PO DAILY 11/09/20 11/09/20 Potassium Chloride ER [K-Dur 10] 10 meq PO DAILY 11/09/20 11/09/20 Allergies Allergy/AdvReac Type Severity Reaction Status Date / Time cephalexin monohydrate Allergy Rash/Hives Verified 11/09/20 10:45 [From Keflex] codeine Allergy Rash/Hives Verified 11/09/20 10:45 Review of Systems ROS Statement: Those systems with pertinent positive or pertinent negative responses have been documented in the HPI. ROS Other: All systems not noted in ROS Statement are negative. Past Medical History Past Medical History: GERD/Reflux Additional Past Medical History / Comment(s): Hepatic steatosis, ETOH abuse, gastritis, duodenitis, lower GI bleed, colitis, hemorrhoids, bronchitis, R side nephrolithiasis with surgery, bilateral ovarian cysts, neuropathy bilateral hands/legs and tops of both feet, hypokalemia, hypoalbumenemia, pancytopenia. History of Any Multi-Drug Resistant Organisms: None Reported Past Surgical History: Appendectomy, Orthopedic Surgery Additional Past Surgical History / Comment(s): Left knee surgeries-3 arthroscopic and one open, EGDs, colonoscopies, R sided lithotripsy. Past Anesthesia/Blood Transfusion Reactions: No Reported Reaction Additional Past Anesthesia/Blood Transfusion Reaction / Comment(s): Pt has received blood in past without reaction. Past Psychological History: Depression Smoking Status: Current every day smoker Past Alcohol Use History: Daily Past Drug Use History: Marijuana - Past Family History Mother Family Medical History: Diabetes Mellitus Additional Family Medical History / Comment(s): Borderline HTN Brother(s) Family Medical History: Diabetes Mellitus Father Family Medical History: Hypertension Additional Family Medical History / Comment(s): BOARDERLINE DM General Exam - General Exam Comments Initial Comments: GENERAL: Patient is well-developed and well-nourished. Patient is nontoxic and well- hydrated and is in mild distress. ENT: Neck is soft and supple. No significant lymphadenopathy is noted. Oropharynx is clear. Moist mucous membranes. Neck has full range of motion without eliciting any pain. EYES: The sclera were anicteric and conjunctiva were pink and moist. Extraocular movements were intact and pupils were equal round and reactive to light. Eyelids were unremarkable. PULMONARY: Unlabored respirations. Good breath sounds bilaterally. No audible rales rhonchi or wheezing was noted. CARDIOVASCULAR: There is a regular rate and rhythm without any murmurs gallops or rubs. ABDOMEN: Soft and nontender with normal bowel sounds. SKIN: Skin is clear with no lesions or rashes and otherwise unremarkable. NEUROLOGIC: Patient is alert and oriented x3. Cranial nerves II through XII are grossly intact. Motor and sensory are also intact. Normal speech, volume and content. Symmetrical smile. MUSCULOSKELETAL: Normal extremities with adequate strength and full range of motion. LYMPHATICS: No significant lymphadenopathy is noted PSYCHIATRIC: Normal psychiatric evaluation. Limitations: no limitations Course Vital Signs 11/09/20 11/09/20 09:11 10:13 Temperature 98.1 F Pulse Rate 55 L 98 Respiratory 16 16 Rate Blood Pressure 130/66 132/79 O2 Sat by Pulse 96 96 Oximetry Medical Decision Making - Medical Decision Making EKG shows sinus rhythm at 81 bpm MT interval 290 QRS is 74 QT interval 394 QTC is 457. Patient's EKG shows no ST segment elevation or depression. CT of the brain shows no acute normalities. Chest x-ray shows no acute abnormality. Patient states she has coughed multiple times in the emergency department and is been no blood at all. I went back into the room the patient admitted to me she was a smoker and a alcoholic. Patient states her headache is much improved. Patient was like to be discharged home with this time. - Lab Data Result diagrams: 11/09/20 10:10 11/09/20 10:10 Lab Results 11/09/20 11/09/20 11/09/20 Range/Units 10:10 10:10 10:10 WBC 5.1 (3.8-10.6) k/uL RBC 3.86 (3.80-5.40) m/uL Hgb 14.4 (11.4-16.0) gm/dL Hct 44.4 (34.0-46.0) % MCV 115.1 H (80.0-100.0) fL MCH 37.3 H (25.0-35.0) pg MCHC 32.4 (31.0-37.0) g/dL RDW 16.4 H (11.5-15.5) % Plt Count 79 L (150-450) k/uL MPV 8.1 Neutrophils % 77 % Lymphocytes % 19 % Monocytes % 3 % Eosinophils % 1 % Basophils % 0 % Neutrophils # 3.9 (1.3-7.7) k/uL Lymphocytes # 0.9 L (1.0-4.8) k/uL Monocytes # 0.1 (0-1.0) k/uL Eosinophils # 0.0 (0-0.7) k/uL Basophils # 0.0 (0-0.2) k/uL Manual Slide Review Performed Anisocytosis Slight Macrocytosis Marked A D-Dimer 0.48 (<0.60) mg/L FEU Sodium 141 (137-145) mmol/L Potassium 4.2 (3.5-5.1) mmol/L Chloride 105 (98-107) mmol/L Carbon Dioxide 20 L (22-30) mmol/L Anion Gap 16 mmol/L BUN 6 L (7-17) mg/dL Creatinine 0.55 (0.52-1.04) mg/dL Est GFR (CKD-EPI)AfAm >90 (>60 ml/min/1.73 sqM) Est GFR (CKD-EPI)NonAf >90 (>60 ml/min/1.73 sqM) Glucose 90 (74-99) mg/dL Calcium 9.2 (8.4-10.2) mg/dL Total Bilirubin 1.5 H (0.2-1.3) mg/dL AST 153 H (14-36) U/L ALT 30 (4-34) U/L Alkaline Phosphatase 195 H (38-126) U/L Total Protein 8.6 H (6.3-8.2) g/dL Albumin 4.7 (3.5-5.0) g/dL Disposition Clinical Impression: Headache, Hemoptysis Disposition: HOME SELF-CARE Instructions (If sedation given, give patient instructions): Acute Headache (ED), Abuse of Alcohol (ED) Additional Instructions: Patient needs to stop drinking. Is patient prescribed a controlled substance at d/c from ED?: No Referrals: Cecil Cárdenas MD [Primary Care Provider] - 1-2 days Time of Disposition: 11:25
[2020-11-09 10:29] LABS: Anisocytosis Slight; Basophils % (A) 0 %; Eosinophils % (A) 1 %; HCT 44.4 % (34.0-46.0); HGB 14.4 gm/dL (11.4-16.0); Lymphocytes # (A) 0.9 k/uL (1.0-4.8); Lymphocytes % (A) 19 %; MCH 37.3 pg (25.0-35.0); MCHC 32.4 g/dL (31.0-37.0); MCV 115.1 fL (80.0-100.0); Macrocytosis Marked; Mean Platelet Volume 8.1; Monocytes # (A) 0.1 k/uL (0-1.0); Monocytes % (A) 3 %; Neutrophils # (A) 3.9 k/uL (1.3-7.7); Neutrophils % (A) 77 %; RBC 3.86 m/uL (3.80-5.40); RDW 16.4 % (11.5-15.5); WBC 5.1 k/uL (3.8-10.6)
--- NOTE | 2020-11-09 10:37 | XR ---
EXAMINATION TYPE: XR chest 2V DATE OF EXAM: 11/09/2020 COMPARISON: CTA chest and chest x-ray August 17, 2019 HISTORY: Difficulty in breathing. TECHNIQUE: Frontal and lateral views of the chest are obtained. FINDINGS: There is no suspicious new focal air space opacity, pleural effusion, or pneumothorax seen . The cardiac silhouette size remains within normal limits. The osseous structures are intact. Ove rlying EKG leads again seen. IMPRESSION: No acute cardiopulmonary process. No significant change from prior.
[2020-11-09 10:50] LABS: Platelet Count 79 k/uL (150-450)
[2020-11-09 10:54] LABS: ALT 30 U/L (4-34); AST 153 U/L (14-36); African American GFR (CKD) >90 (>60 ml/min/1.73 sqM); Albumin 4.7 g/dL (3.5-5.0); Alkaline Phosphatase 195 U/L (38-126); Anion Gap 16 mmol/L; Blood Urea Nitrogen 6 mg/dL (7-17); Calcium 9.2 mg/dL (8.4-10.2); Carbon Dioxide 20 mmol/L (22-30); Chloride 105 mmol/L (98-107); Glucose 90 mg/dL (74-99); Non-African American GFR(CKD) >90 (>60 ml/min/1.73 sqM); Potassium 4.2 mmol/L (3.5-5.1); Sodium 141 mmol/L (137-145); Total Bilirubin 1.5 mg/dL (0.2-1.3); Total Protein 8.6 g/dL (6.3-8.2)
--- NOTE | 2020-11-09 11:08 | CT ---
EXAMINATION TYPE: CT brain wo con DATE OF EXAM: 11/09/2020 COMPARISON: CT brain April 11, 2014 HISTORY: Acute headache for [address] DLP: 1099.4 mGycm. Automated Exposure Control for Dose Reduction was Utilized. TECHNIQUE: CT scan of the head is performed without contrast. FINDINGS: There is no acute intracranial hemorrhage, mass effect, or midline shift identified. The ventricles and sulci are stable and within normal limits in size. Feliz-white matter differentiation is maintained. The globes are intact and the visualized sinuses are clear. IMPRESSION: Unremarkable study. No significant change from prior.
[2020-11-09] MEDS ORDERED: KETOROLAC 15 MG/ML 1 ML VIAL IVP STA (11:21)
[2020-11-09 11:27] VITALS: PULSE 95; RESP 18
[2020-11-09 11:41] VITALS: BP 128/78
== END 2020-11-09 11:41 | disposition home or self-care (01) ==
LOC: EC 09:10
DX: R51.9 Headache, unspecified (principal); R04.2 Hemoptysis; R11.0 Nausea; K21.9 Gastro-esophageal reflux disease without esophagitis; F32.9 Major depressive disorder, single episode, unspecified; F17.200 Nicotine dependence, unspecified, uncomplicated; Z79.899 Other long term (current) drug therapy
CPT/HCPCS: 36415; 93005; 85379; 80053; 85025; 71046; 70450; 99285; 96374; 96375; J1885; J1790

== ENCOUNTER 2021-02-03 21:28 | Emergency (ER) | payer OTHER ==
[2021-02-03 21:36] VITALS: TEMP 98
[2021-02-03] MEDS ORDERED: SODIUM CHLORIDE 0.9% 1,000 ML IV STA (21:47)
[2021-02-03] MEDS ORDERED: ONDANSETRON 4 MG/2 ML VIAL IVP STA (21:47)
[2021-02-03 22:13] LABS: Basophils % (A) 0 %; Eosinophils # (A) 0.1 k/uL (0-0.7); Eosinophils % (A) 1 %; HCT 41.7 % (34.0-46.0); HGB 14.5 gm/dL (11.4-16.0); Lymphocytes # (A) 0.5 k/uL (1.0-4.8); Lymphocytes % (A) 8 %; MCHC 34.7 g/dL (31.0-37.0); MCV 118.1 fL (80.0-100.0); Macrocytosis Marked; Mean Platelet Volume 9.5; Monocytes # (A) 0.2 k/uL (0-1.0); Monocytes % (A) 4 %; Neutrophils # (A) 5.2 k/uL (1.3-7.7); Neutrophils % (A) 87 %; Platelet Count 61 k/uL (150-450); RBC 3.53 m/uL (3.80-5.40); RDW 14.6 % (11.5-15.5)
[2021-02-03 22:25] LABS: ALT 53 U/L (4-34); AST 265 U/L (14-36); African American GFR (CKD) >90 (>60 ml/min/1.73 sqM); Albumin 4.8 g/dL (3.5-5.0); Alkaline Phosphatase 177 U/L (38-126); Anion Gap 15 mmol/L; Blood Urea Nitrogen 7 mg/dL (7-17); Calcium 9.4 mg/dL (8.4-10.2); Carbon Dioxide 21 mmol/L (22-30); Chloride 102 mmol/L (98-107); Glucose 131 mg/dL (74-99); Lipase 183 U/L (23-300); Non-African American GFR(CKD) >90 (>60 ml/min/1.73 sqM); Potassium 3.5 mmol/L (3.5-5.1); Sodium 138 mmol/L (137-145); Total Bilirubin 3.2 mg/dL (0.2-1.3); Total Protein 8.6 g/dL (6.3-8.2)
[2021-02-03 22:40] LABS: Appearance,Urine Cloudy (Clear); Bilirubin,Urine 1+ (Negative); Blood,Urine Negative (Negative); Color,Urine Dark Brown; Glucose,Urine (UA) Negative (Negative); Ketones,Urine Trace (Negative); Leukocyte Esterase,Urine Trace (Negative); Mucus,Urine Many /hpf; Nitrite,Urine Negative (Negative); Protein,Urine 1+ (Negative); RBC,Urine 3 /hpf (0-5); Specific Gravity,Urine 1.026 (1.001-1.035); Squamous Epithelial Cell,Urine 14 /hpf (0-4); WBC,Urine 2 /hpf (0-5)
[2021-02-03] MEDS ORDERED: MAGNESIUM OXIDE 400 MG TAB PO STA (22:59)
[2021-02-03] MEDS ORDERED: LORazepam 2 MG/ML INJ IV STA (23:00)
--- NOTE | 2021-02-03 23:31 | ED ---
Nausea/Vomiting/Diarrhea HPI - General Chief complaint: Nausea/Vomiting/Diarrhea Stated complaint: N/V Time Seen by Provider: 02/03/21 21:44 Source: patient Mode of arrival: ambulatory Limitations: no limitations - History of Present Illness Initial comments: 40-year-old female patient presents to the emergency department today for evaluation of vomiting for the last 3 days. Patient states she has not been able to keep down any food or fluids. Admits to drinking alcohol daily. Denies any alcohol use today. Reports mild lower abdominal discomfort. Denies any hematochezia, melena, or hematemesis. Denies taking any medication for the vomiting. Patient does report history of low potassium and has been unable to keep down her supplement, she is concerned her level may be low. States she started to feel weak and dizzy today. Reports mild left sided chest pain that started today as well. Denies fever or chills. Did have an episode of diarrhea yesterday. Patient denies any recent rash, cough, shortness of breath, chest pain, back pain, numbness, tingling, dizziness, weakness, hematuria, dysuria, urinary urgency, urinary frequency, headache, visual changes, or any other complaints. - Related Data Home Medications Medication Instructions Recorded Confirmed Omeprazole [PriLOSEC] 20 mg PO DAILY PRN 11/09/20 02/03/21 Meloxicam [Mobic] 7.5 mg PO DAILY PRN 02/03/21 02/03/21 Previous Rx's Medication Instructions Recorded Ondansetron [Zofran ODT] 4 mg PO Q8HR PRN #10 tab 02/03/21 Allergies Allergy/AdvReac Type Severity Reaction Status Date / Time cephalexin monohydrate Allergy Rash/Hives Verified 02/03/21 21:35 [From Keflex] codeine Allergy Rash/Hives Verified 02/03/21 21:35 Review of Systems ROS Statement: Those systems with pertinent positive or pertinent negative responses have been documented in the HPI. ROS Other: All systems not noted in ROS Statement are negative. Past Medical History Past Medical History: GERD/Reflux Additional Past Medical History / Comment(s): Hepatic steatosis, ETOH abuse, gastritis, duodenitis, lower GI bleed, colitis, hemorrhoids, bronchitis, R side nephrolithiasis with surgery, bilateral ovarian cysts, neuropathy bilateral hands/legs and tops of both feet, hypokalemia, hypoalbumenemia, pancytopenia. History of Any Multi-Drug Resistant Organisms: None Reported Past Surgical History: Appendectomy, Orthopedic Surgery Additional Past Surgical History / Comment(s): Left knee surgeries-3 arthroscopic and one open, EGDs, colonoscopies, R sided lithotripsy. Past Anesthesia/Blood Transfusion Reactions: No Reported Reaction Additional Past Anesthesia/Blood Transfusion Reaction / Comment(s): Pt has received blood in past without reaction. Past Psychological History: Depression Smoking Status: Current every day smoker Past Alcohol Use History: Daily Past Drug Use History: Marijuana - Past Family History Mother Family Medical History: Diabetes Mellitus Additional Family Medical History / Comment(s): Borderline HTN Brother(s) Family Medical History: Diabetes Mellitus Father Family Medical History: Hypertension Additional Family Medical History / Comment(s): BOARDERLINE DM General Exam Limitations: no limitations General appearance: alert, in no apparent distress, other (Physical well- developed, well-nourished adult female patient in no acute distress. Vital signs upon presentation temperature 98.2F, pulse 103, respirations 20, blood pressure 134/77, pulse ox 96% on room air.) Eye exam: Present: normal appearance, PERRL, EOMI. Absent: scleral icterus, conjunctival injection, periorbital swelling ENT exam: Present: normal exam, normal oropharynx, mucous membranes moist Respiratory exam: Present: normal lung sounds bilaterally. Absent: respiratory distress, wheezes, rales, rhonchi, stridor Cardiovascular Exam: Present: regular rate, normal rhythm, normal heart sounds. Absent: systolic murmur, diastolic murmur, rubs, gallop, clicks GI/Abdominal exam: Present: soft, normal bowel sounds. Absent: distended, tenderness, guarding, rebound, rigid Neurological exam: Present: alert, oriented X3, CN II-XII intact Psychiatric exam: Present: normal affect, normal mood Skin exam: Present: warm, dry, intact, normal color. Absent: rash Course Vital Signs 02/03/21 21:33 Temperature 98.0 F Pulse Rate 103 H Respiratory 20 Rate Blood Pressure 134/77 O2 Sat by Pulse 96 Oximetry Medical Decision Making - Medical Decision Making 40-year-old female patient chronic alcohol abuse presents to the emergency department today for evaluation of vomiting 3 days. Physical examination revealed soft nontender abdomen. Labs reviewed and did reveal low magnesium at 1.3, total bili 3.2, AST 265, ALT 53, alk phos 177. Troponin is negative. Urinalysis showed no evidence for infection. Patient was given IV fluids, Zofran. Upon reevaluation states she still feels somewhat nauseated but has no more episodes of vomiting. She was given a dose of Ativan. Upon reevaluation states she is feeling better. She'll be discharged follow-up with her primary care physician for recheck in 1-2 days. Return parameters were discussed in detail. She verbalizes understanding and agrees with this plan. Case discussed with my attending Dr. Michael. - Lab Data Result diagrams: 02/03/21 21:53 02/03/21 21:53 Lab Results 02/03/21 02/03/21 02/03/21 Range/Units 21:53 21:53 21:53 WBC 6.0 (3.8-10.6) k/uL RBC 3.53 L (3.80-5.40) m/uL Hgb 14.5 (11.4-16.0) gm/dL Hct 41.7 (34.0-46.0) % MCV 118.1 H (80.0-100.0) fL MCH 41.0 H (25.0-35.0) pg MCHC 34.7 (31.0-37.0) g/dL RDW 14.6 (11.5-15.5) % Plt Count 61 L (150-450) k/uL MPV 9.5 Neutrophils % 87 % Lymphocytes % 8 % Monocytes % 4 % Eosinophils % 1 % Basophils % 0 % Neutrophils # 5.2 (1.3-7.7) k/uL Lymphocytes # 0.5 L (1.0-4.8) k/uL Monocytes # 0.2 (0-1.0) k/uL Eosinophils # 0.1 (0-0.7) k/uL Basophils # 0.0 (0-0.2) k/uL Macrocytosis Marked A Sodium 138 (137-145) mmol/L Potassium 3.5 (3.5-5.1) mmol/L Chloride 102 (98-107) mmol/L Carbon Dioxide 21 L (22-30) mmol/L Anion Gap 15 mmol/L BUN 7 (7-17) mg/dL Creatinine 0.49 L (0.52-1.04) mg/dL Est GFR (CKD-EPI)AfAm >90 (>60 ml/min/1.73 sqM) Est GFR (CKD-EPI)NonAf >90 (>60 ml/min/1.73 sqM) Glucose 131 H (74-99) mg/dL Calcium 9.4 (8.4-10.2) mg/dL Magnesium (1.6-2.3) mg/dL Total Bilirubin 3.2 H (0.2-1.3) mg/dL AST 265 H (14-36) U/L ALT 53 H (4-34) U/L Alkaline Phosphatase 177 H (38-126) U/L Troponin I (0.000-0.034) ng/mL Total Protein 8.6 H (6.3-8.2) g/dL Albumin 4.8 (3.5-5.0) g/dL Lipase 183 (23-300) U/L Urine Color Dark Brown Urine Appearance Cloudy H (Clear) Urine pH 6.0 (5.0-8.0) Ur Specific [place] 1.026 (1.001-1.035) Urine Protein 1+ H (Negative) Urine Glucose (UA) Negative (Negative) Urine Ketones Trace H (Negative) Urine Blood Negative (Negative) Urine Nitrite Negative (Negative) Urine Bilirubin 1+ H (Negative) Urine Urobilinogen 3.0 (<2.0) mg/dL Ur Leukocyte Esterase Trace H (Negative) Urine RBC 3 (0-5) /hpf Urine WBC 2 (0-5) /hpf Ur Squamous Epith Cells 14 H (0-4) /hpf Urine Mucus Many H (None) /hpf 02/03/21 02/03/21 Range/Units 21:53 21:53 WBC (3.8-10.6) k/uL RBC (3.80-5.40) m/uL Hgb (11.4-16.0) gm/dL Hct (34.0-46.0) % MCV (80.0-100.0) fL MCH (25.0-35.0) pg MCHC (31.0-37.0) g/dL RDW (11.5-15.5) % Plt Count (150-450) k/uL MPV Neutrophils % % Lymphocytes % % Monocytes % % Eosinophils % % Basophils % % Neutrophils # (1.3-7.7) k/uL Lymphocytes # (1.0-4.8) k/uL Monocytes # (0-1.0) k/uL Eosinophils # (0-0.7) k/uL Basophils # (0-0.2) k/uL Macrocytosis Sodium (137-145) mmol/L Potassium (3.5-5.1) mmol/L Chloride (98-107) mmol/L Carbon Dioxide (22-30) mmol/L Anion Gap mmol/L BUN (7-17) mg/dL Creatinine (0.52-1.04) mg/dL Est GFR (CKD-EPI)AfAm (>60 ml/min/1.73 sqM) Est GFR (CKD-EPI)NonAf (>60 ml/min/1.73 sqM) Glucose (74-99) mg/dL Calcium (8.4-10.2) mg/dL Magnesium 1.3 L (1.6-2.3) mg/dL Total Bilirubin (0.2-1.3) mg/dL AST (14-36) U/L ALT (4-34) U/L Alkaline Phosphatase (38-126) U/L Troponin I <0.012 (0.000-0.034) ng/mL Total Protein (6.3-8.2) g/dL Albumin (3.5-5.0) g/dL Lipase (23-300) U/L Urine Color Urine Appearance (Clear) Urine pH (5.0-8.0) Ur Specific [place] (1.001-1.035) Urine Protein (Negative) Urine Glucose (UA) (Negative) Urine Ketones (Negative) Urine Blood (Negative) Urine Nitrite (Negative) Urine Bilirubin (Negative) Urine Urobilinogen (<2.0) mg/dL Ur Leukocyte Esterase (Negative) Urine RBC (0-5) /hpf Urine WBC (0-5) /hpf Ur Squamous Epith Cells (0-4) /hpf Urine Mucus (None) /hpf - EKG Data -: EKG Interpreted by [place] EKG Comments: EKG obtained at 2151 shows sinus rhythm with short [place] interval, ventricular is 79, [place] interval 96, QRS duration 76, QT 390, QTC 447. No evidence of ST elevation or depression. Disposition Clinical Impression: Vomiting, Gastritis Disposition: HOME SELF-CARE Condition: Good Instructions (If sedation given, give patient instructions): Gastritis (ED), Acute Nausea and Vomiting (ED) Additional Instructions: Take medications as directed. Do clear liquid diet for the next 24 hours. Follow up with the primary care physician for recheck in 1-2 days. Return for any new, worsening, or concerning symptoms. Prescriptions: Ondansetron [Zofran ODT] 4 mg PO Q8HR PRN #10 tab PRN Reason: Nausea Is patient prescribed a controlled substance at d/c from ED?: No Referrals: Cecil Cárdenas MD [Primary Care Provider] - 1-2 days Time of Disposition: 23:31
[2021-02-04 00:26] VITALS: BP 125/71; PULSE 80; RESP 18
== END 2021-02-04 00:10 | disposition home or self-care (01) ==
LOC: EC 21:28
DX: K29.70 Gastritis, unspecified, without bleeding (principal); K21.9 Gastro-esophageal reflux disease without esophagitis; F17.200 Nicotine dependence, unspecified, uncomplicated; Z88.1 Allergy status to other antibiotic agents; Z90.49 Acquired absence of other specified parts of digestive tract; Z88.5 Allergy status to narcotic agent
CPT/HCPCS: 36415; 93005; 80053; 83690; 83735; 84484; 85025; 81001; 99285; 96374; 96375; 96360; J2060; J2405

== ENCOUNTER → 2021-06-14 | Outpatient (CLI) | payer BC ==
[2021-06-14 11:37] LABS: Basophils # (A) 0.01 X 10*3/uL (0.00-0.10); Basophils % (A) 0.2 %; Eosinophils # (A) 0.06 X 10*3/uL (0.04-0.35); Eosinophils % (A) 1.1 %; HCT 34.3 % (37.2-46.3); HGB 11.7 g/dL (12.0-15.0); Lymphocytes # (A) 1.43 X 10*3/uL (0.90-5.00); Lymphocytes % (A) 26.2 %; MCH 40.1 pg (27.0-32.0); MCHC 34.1 g/dL (32.0-37.0); MCV 117.5 fL (80.0-97.0); Mean Platelet Volume 10.8 fL (9.5-12.2); Monocytes % (A) 5.5 %; Neutrophils # (A) 3.63 X 10*3/uL (1.80-7.70); Neutrophils % (A) 66.6 %; Platelet Count 74 X 10*3/uL (140-440); RBC 2.92 X 10*6/uL (4.10-5.20); RDW 15.2 % (11.5-14.5); WBC 5.45 X 10*3/uL (4.50-10.00)
[2021-06-14 11:38] LABS: Macrocytosis (M) 3+
[2021-06-14 13:18] LABS: African American GFR (CKD) 143.5 (60.0-200.0); Albumin 4.5 g/dL (3.8-4.9); Albumin/Globulin Ratio 1.49 (1.60-3.17); BUN/Creat Ratio 8.39 Ratio (12.00-20.00); Carbon Dioxide 23.6 mmol/L (20.0-27.5); Non-African American GFR(CKD) 123.8 (60.0-200.0); Potassium 3.1 mmol/L (3.5-5.5); T4, Free (Free Thyroxine) 1.33 ng/dL (0.800-1.800); Total Bilirubin 1.1 mg/dL (0.30-1.20); Total Protein 7.5 g/dL (6.2-8.2)
== END | disposition home or self-care (01) ==
LOC: LABWHC1 07:36
PROVIDERS: ATTEND Internal Medicine
DX: R53.83 Other fatigue (principal); E87.8 Other disorders of electrolyte and fluid balance, not elsewhere classified
CPT/HCPCS: 36415; 80053; 82306; 84439; 84443; 84481; 85025

== ENCOUNTER 2022-06-18 09:17 | Emergency (ER) | payer OTHER ==
[2022-06-18 09:34] VITALS: RESP 16; TEMP 97.8
[2022-06-18] MEDS ORDERED: SODIUM CHLORIDE 0.9% 2,000 ML IV ONE (11:37)
[2022-06-18 11:59] LABS: Appearance,Urine Cloudy (Clear); Bilirubin,Urine 1+ (Negative); Blood,Urine Negative (Negative); Color,Urine Dark Brown; Glucose,Urine (UA) Negative (Negative); Ketones,Urine Trace (Negative); Leukocyte Esterase,Urine Small (Negative); Mucus,Urine Many /hpf; Nitrite,Urine Negative (Negative); Protein,Urine 1+ (Negative); RBC,Urine 2 /hpf (0-5); Squamous Epithelial Cell,Urine 5 /hpf (0-4); WBC,Urine 2 /hpf (0-5)
[2022-06-18 12:15] LABS: ALT 17 U/L (4-34); African American GFR (CKD) >90 (>60 ml/min/1.73 sqM); Anion Gap 7 mmol/L; Blood Urea Nitrogen 5 mg/dL (7-17); Calcium 8.4 mg/dL (8.4-10.2); Carbon Dioxide 26 mmol/L (22-30); Chloride 103 mmol/L (98-107); Glucose 113 mg/dL (74-99); Non-African American GFR(CKD) >90 (>60 ml/min/1.73 sqM); Sodium 136 mmol/L (137-145); Total Bilirubin 2.1 mg/dL (0.2-1.3); Total Protein 7.6 g/dL (6.3-8.2)
[2022-06-18 12:18] LABS: AST 53 U/L (14-36); Alkaline Phosphatase 126 U/L (38-126); Basophils % (A) 0 %; Eosinophils % (A) 1 %; HCT 35.2 % (34.0-46.0); HGB 12.3 gm/dL (11.4-16.0); Lymphocytes # (A) 0.7 k/uL (1.0-4.8); Lymphocytes % (A) 24 %; MCV 114.2 fL (80.0-100.0); Macrocytosis Marked; Mean Platelet Volume 10.8; Monocytes # (A) 0.1 k/uL (0-1.0); Monocytes % (A) 5 %; Neutrophils % (A) 69 %; Potassium 4.2 mmol/L (3.5-5.1); RBC 3.08 m/uL (3.80-5.40); RDW 14.1 % (11.5-15.5); WBC 2.9 k/uL (3.8-10.6)
--- NOTE | 2022-06-18 12:21 | ED ---
General Adult HPI - General Chief complaint: Syncope Stated complaint: dizziness, syncope Time Seen by Provider: 06/18/22 11:25 Source: patient, RN notes reviewed Mode of arrival: ambulatory Limitations: no limitations - History of Present Illness Initial comments: This is a 41-year-old female presents to the emergency Department with chief complaint of syncopal episode. Patient states that she got up quickly on Saturday went to the bathroom states that she started feeling anxious passing out states that she became dizzy attempted to get out of bathroom but was disorientated and fell and struck her head. Patient states that she has had a headache ever since. Patient states she still had some lightheadedness. Patient does admit that she's had persistent multiple episodes of diarrhea. Patient denies any abdominal pain no focal weakness no prior cardiac disease. - Related Data Home Medications Medication Instructions Recorded Confirmed Acetaminophen Tab [Tylenol] 650 mg PO Q6H PRN 06/18/22 06/18/22 Loperamide HCl [Imodium A-D] 2 - 4 mg PO BID PRN 06/18/22 06/18/22 Allergies Allergy/AdvReac Type Severity Reaction Status Date / Time cephalexin monohydrate Allergy Rash/Hives Verified 06/18/22 12:19 [From Keflex] codeine Allergy Rash/Hives Verified 06/18/22 12:19 Review of Systems ROS Statement: Those systems with pertinent positive or pertinent negative responses have been documented in the HPI. ROS Other: All systems not noted in ROS Statement are negative. Past Medical History Past Medical History: GERD/Reflux Additional Past Medical History / Comment(s): Hepatic steatosis, ETOH abuse, gastritis, duodenitis, lower GI bleed, colitis, hemorrhoids, bronchitis, R side nephrolithiasis with surgery, bilateral ovarian cysts, neuropathy bilateral hands/legs and tops of both feet, hypokalemia, hypoalbumenemia, pancytopenia. History of Any Multi-Drug Resistant Organisms: None Reported Past Surgical History: Appendectomy, Orthopedic Surgery Additional Past Surgical History / Comment(s): Left knee surgeries-3 arthroscopic and one open, EGDs, colonoscopies, R sided lithotripsy. Past Anesthesia/Blood Transfusion Reactions: No Reported Reaction Additional Past Anesthesia/Blood Transfusion Reaction / Comment(s): Pt has received blood in past without reaction. Past Psychological History: Depression Smoking Status: Current every day smoker Past Alcohol Use History: Daily Past Drug Use History: Marijuana - Past Family History Mother Family Medical History: Diabetes Mellitus Additional Family Medical History / Comment(s): Borderline HTN Brother(s) Family Medical History: Diabetes Mellitus Father Family Medical History: Hypertension Additional Family Medical History / Comment(s): BOARDERLINE DM General Exam Limitations: no limitations General appearance: alert, in no apparent distress Head exam: Present: atraumatic, normocephalic, normal inspection Eye exam: Present: normal appearance, PERRL, EOMI. Absent: scleral icterus, conjunctival injection, periorbital swelling ENT exam: Present: normal exam, normal oropharynx, mucous membranes moist, TM's normal bilaterally Neck exam: Present: normal inspection. Absent: tenderness, meningismus, lymph adenopathy Respiratory exam: Present: normal lung sounds bilaterally. Absent: respiratory distress, wheezes, rales, rhonchi, stridor Cardiovascular Exam: Present: regular rate, normal rhythm, normal heart sounds. Absent: systolic murmur, diastolic murmur, rubs, gallop, clicks GI/Abdominal exam: Present: soft, normal bowel sounds. Absent: distended, tenderness, guarding, rebound, rigid Extremities exam: Present: normal inspection, full ROM, normal capillary refill. Absent: tenderness, pedal edema, joint swelling, calf tenderness Back exam: Present: full ROM. Absent: tenderness Neurological exam: Present: alert, oriented X3, CN II-XII intact, reflexes normal. Absent: motor sensory deficit Skin exam: Present: warm, dry, intact, normal color. Absent: rash Course Vital Signs 06/18/22 09:31 Temperature 97.8 F Pulse Rate 85 Respiratory 16 Rate Blood Pressure 109/63 O2 Sat by Pulse 96 Oximetry EKG Findings - EKG Comments: EKG Findings:: EKG performed at 9:39 sinus rhythm with short OK rate of 78 OK 118 QRS 89 QT/QTC 374/407 - EKG Results: EKG: interpreted by [facility] Medical Decision Making - Medical Decision Making 5-year-old female presented emergency from for near syncope, dizziness. Patient's found the kids dehydrated. Patient has thrombocytopenia related to alcohol abuse. Patient counseled about to alcohol use. Patient is well- hydrated symptoms have improved. CT of brain was obtained interpreted by me and radiology showing no acute intracranial process or cervical injury. Patient we discharged in stable condition return parameters were discussed. - Lab Data Result diagrams: 06/18/22 11:48 06/18/22 11:48 Lab Results 06/18/22 06/18/22 06/18/22 Range/Units 11:33 11:33 11:48 WBC 2.9 L (3.8-10.6) k/uL RBC 3.08 L (3.80-5.40) m/uL Hgb 12.3 (11.4-16.0) gm/dL Hct 35.2 (34.0-46.0) % MCV 114.2 H (80.0-100.0) fL MCH 40.0 H (25.0-35.0) pg MCHC 35.0 (31.0-37.0) g/dL RDW 14.1 (11.5-15.5) % Plt Count 43 L (150-450) k/uL MPV 10.8 Neutrophils % 69 % Lymphocytes % 24 % Monocytes % 5 % Eosinophils % 1 % Basophils % 0 % Neutrophils # 2.0 (1.3-7.7) k/uL Lymphocytes # 0.7 L (1.0-4.8) k/uL Monocytes # 0.1 (0-1.0) k/uL Eosinophils # 0.0 (0-0.7) k/uL Basophils # 0.0 (0-0.2) k/uL Manual Slide Review Performed Macrocytosis Marked A D-Dimer (<0.60) mg/L FEU Sodium (137-145) mmol/L Potassium (3.5-5.1) mmol/L Chloride (98-107) mmol/L Carbon Dioxide (22-30) mmol/L Anion Gap mmol/L BUN (7-17) mg/dL Creatinine (0.52-1.04) mg/dL Est GFR (CKD-EPI)AfAm (>60 ml/min/1.73 sqM) Est GFR (CKD-EPI)NonAf (>60 ml/min/1.73 sqM) Glucose (74-99) mg/dL Calcium (8.4-10.2) mg/dL Total Bilirubin (0.2-1.3) mg/dL AST (14-36) U/L ALT (4-34) U/L Alkaline Phosphatase (38-126) U/L Troponin I (0.000-0.034) ng/mL Total Protein (6.3-8.2) g/dL Albumin (3.5-5.0) g/dL Urine Color Dark Brown Urine Appearance Cloudy H (Clear) Urine pH 6.0 (5.0-8.0) Ur Specific [place] 1.040 H (1.001-1.035) Urine Protein 1+ H (Negative) Urine Glucose (UA) Negative (Negative) Urine Ketones Trace H (Negative) Urine Blood Negative (Negative) Urine Nitrite Negative (Negative) Urine Bilirubin 1+ H (Negative) Urine Urobilinogen 6.0 (<2.0) mg/dL Ur Leukocyte Esterase Small H (Negative) Urine RBC 2 (0-5) /hpf Urine WBC 2 (0-5) /hpf Ur Squamous Epith Cells 5 H (0-4) /hpf Urine Mucus Many H (None) /hpf Urine HCG, Qual Not Detected (Not Detectd) 06/18/22 06/18/22 06/18/22 Range/Units 11:48 11:50 11:53 WBC (3.8-10.6) k/uL RBC (3.80-5.40) m/uL Hgb (11.4-16.0) gm/dL Hct (34.0-46.0) % MCV (80.0-100.0) fL MCH (25.0-35.0) pg MCHC (31.0-37.0) g/dL RDW (11.5-15.5) % Plt Count (150-450) k/uL MPV Neutrophils % % Lymphocytes % % Monocytes % % Eosinophils % % Basophils % % Neutrophils # (1.3-7.7) k/uL Lymphocytes # (1.0-4.8) k/uL Monocytes # (0-1.0) k/uL Eosinophils # (0-0.7) k/uL Basophils # (0-0.2) k/uL Manual Slide Review Macrocytosis D-Dimer 0.24 (<0.60) mg/L FEU Sodium 136 L (137-145) mmol/L Potassium 4.2 (3.5-5.1) mmol/L Chloride 103 (98-107) mmol/L Carbon Dioxide 26 (22-30) mmol/L Anion Gap 7 mmol/L BUN 5 L (7-17) mg/dL Creatinine 0.46 L (0.52-1.04) mg/dL Est GFR (CKD-EPI)AfAm >90 (>60 ml/min/1.73 sqM) Est GFR (CKD-EPI)NonAf >90 (>60 ml/min/1.73 sqM) Glucose 113 H (74-99) mg/dL Calcium 8.4 (8.4-10.2) mg/dL Total Bilirubin 2.1 H (0.2-1.3) mg/dL AST 53 H (14-36) U/L ALT 17 (4-34) U/L Alkaline Phosphatase 126 (38-126) U/L Troponin I <0.012 (0.000-0.034) ng/mL Total Protein 7.6 (6.3-8.2) g/dL Albumin 4.0 (3.5-5.0) g/dL Urine Color Urine Appearance (Clear) Urine pH (5.0-8.0) Ur Specific [place] (1.001-1.035) Urine Protein (Negative) Urine Glucose (UA) (Negative) Urine Ketones (Negative) Urine Blood (Negative) Urine Nitrite (Negative) Urine Bilirubin (Negative) Urine Urobilinogen (<2.0) mg/dL Ur Leukocyte Esterase (Negative) Urine RBC (0-5) /hpf Urine WBC (0-5) /hpf Ur Squamous Epith Cells (0-4) /hpf Urine Mucus (None) /hpf Urine HCG, Qual (Not Detectd) Disposition Clinical Impression: Pancytopenia, Dehydration, Near syncope Disposition: HOME SELF-CARE Condition: Stable Instructions (If sedation given, give patient instructions): Syncope (ED) Additional Instructions: Please return to the Emergency Department if symptoms worsen or any other c oncerns. Is patient prescribed a controlled substance at d/c from ED?: No Referrals: Cecil Cárdenas MD [Primary Care Provider] - 1-2 days Time of Disposition: 12:55
--- NOTE | 2022-06-18 12:28 | CT ---
EXAMINATION TYPE: CT brain sunil mendez DATE OF EXAM: 06/18/2022 COMPARISON: 11/09/2020 HISTORY: Fall, dizziness CT DLP: [address] Brain: Unenhanced CT of the brain was performed. The ventricles, basal cisterns and sulci overlying the cerebral convexities demonstrate a normal appe arance. There is no evidence for intracranial hemorrhage or sulcal effacement. No mass effects are seen. If symptoms persist consider MRI. Osseous calvarium is intact. IMPRESSION: No acute intracranial process CT Cervical Spine: Unenhanced CT of the cervical spine was performed with bone and soft tissue window settings submitted . Coronal and sagittal reconstruction is obtained. There is normal alignment and prevertebral soft tissues. I do not see evidence for fracture or sublu xation. No significant degenerative changes are present. The lung apices are clear. IMPRESSION: No evidence for acute fracture or subluxation of the cervical spine.
[2022-06-18 12:34] LABS: Platelet Count 43 k/uL (150-450)
[2022-06-18 13:19] VITALS: BP 103/71; PULSE 94
== END 2022-06-18 13:20 | disposition home or self-care (01) ==
LOC: EC 09:17
DX: D61.818 Other pancytopenia (principal); E86.0 Dehydration; R55 Syncope and collapse; F32.A Depression, unspecified; F17.200 Nicotine dependence, unspecified, uncomplicated; F12.90 Cannabis use, unspecified, uncomplicated; Z88.1 Allergy status to other antibiotic agents; Z88.5 Allergy status to narcotic agent
CPT/HCPCS: 36415; 70450; 72125; 80053; 81001; 81025; 84484; 85025; 85379; 93005; 96360; 99284

== ENCOUNTER 2022-10-08 20:26 | Inpatient (IN) | payer OTHER ==
[2022-10-08] MEDS ORDERED: SODIUM CHLORIDE 0.9% 500 ML 500 ML IV ONE (20:31)
[2022-10-08] MEDS ORDERED: LORazepam 2 MG/ML INJ IV STA ×4 (20:32→23:15)
[2022-10-08 20:59] LABS: Anisocytosis Slight; Basophils % (A) 0 %; Eosinophils # (A) 0.1 k/uL (0-0.7); Eosinophils % (A) 1 %; HCT 26.7 % (34.0-46.0); HGB 8.9 gm/dL (11.4-16.0); Hypochromasia Slight; Lymphocytes # (A) 0.7 k/uL (1.0-4.8); Lymphocytes % (A) 9 %; MCHC 33.3 g/dL (31.0-37.0); MCV 128.8 fL (80.0-100.0); Macrocytosis Marked; Mean Platelet Volume 10.4; Monocytes # (A) 0.3 k/uL (0-1.0); Monocytes % (A) 4 %; Neutrophils # (A) 6.6 k/uL (1.3-7.7); Neutrophils % (A) 86 %; RBC 2.08 m/uL (3.80-5.40); RDW 18.2 % (11.5-15.5); WBC 7.7 k/uL (3.8-10.6)
[2022-10-08 21:04] LABS: African American GFR (CKD) 87 (>60 ml/min/1.73 sqM); Albumin 2.8 g/dL (3.5-5.0); Alcohol <10 mg/dL; Alkaline Phosphatase 129 U/L (38-126); Anion Gap 18 mmol/L; Blood Urea Nitrogen 12 mg/dL (7-17); Carbon Dioxide 21 mmol/L (22-30); Chloride 93 mmol/L (98-107); Glucose 66 mg/dL (74-99); Non-African American GFR(CKD) 76 (>60 ml/min/1.73 sqM); Sodium 132 mmol/L (137-145); Total Bilirubin 9.7 mg/dL (0.2-1.3); Total Protein 6.4 g/dL (6.3-8.2)
[2022-10-08 21:05] LABS: VBG PH 7.54 (7.31-7.41)
[2022-10-08 21:11] LABS: HCG,Qualitative Serum Not Detected
[2022-10-08 21:12] LABS: Glucose,Whole Blood 72 mg/dL (70-110)
[2022-10-08 21:16] LABS: ALT 98 U/L (4-34); AST 853 U/L (14-36)
[2022-10-08 21:18] LABS: Lactic Acid, Venous 10.4 mmol/L (0.7-2.0)
[2022-10-08 21:22] LABS: INR 3.8 (<1.2); Prothrombin Time 37.2 sec (9.0-12.0)
[2022-10-08] MEDS ORDERED: DEXTROSE 50% SYRINGE 50 ML IVP STA (21:22)
[2022-10-08] MEDS ORDERED: SODIUM CHLORIDE 0.9% 1,000 ML IV STA (21:22)
[2022-10-08 21:23] LABS: Partial Thromboplastin Time 41.5 sec (22.0-30.0)
--- NOTE | 2022-10-08 21:24 | CT ---
EXAMINATION TYPE: CT brain wo con CT DLP: 1063 mGycm, Automated exposure control for dose reduction was used. DATE OF EXAM: 10/08/2022 9:16 PM COMPARISON: 06/18/2022 CLINICAL INDICATION:Female, 42 years old with history of Altered mental status, AMS TECHNIQUE: Brain: Axial CT images of the brain were obtained with coronal and sagittal reformats created and rev iewed. Contrast used: None. Oral contrast used: None. FINDINGS: Brain: Extra-axial spaces: No abnormal extra-axial fluid collections. Ventricular system: Within normal limits Cerebral parenchyma: No acute intraparenchymal hemorrhage or mass effect. The downing-white junction is well differentiated. Cerebellum: Unremarkable. Mass effect: No evidence of midline shift. Intracranial vasculature: unremarkable Soft tissues: Normal. Calvarium/osseous structures: No depressed skull fracture. Paranasal sinuses and mastoid air cells: Mild scattered paranasal sinus disease. Visualized orbits: Orbital contents are intact. IMPRESSION: No acute intracranial process.
[2022-10-08] MEDS ORDERED: VANCOMYCIN IV PER PHARMACY 1 EACH MISC MISCELLANE PRN (21:25)
[2022-10-08 21:29] LABS: MCH 42.8 pg (25.0-35.0)
[2022-10-08] MEDS ORDERED: PIPERACILLIN-TAZOBACTAM 3.375 GM in SODIUM CHLORIDE 0.9% 100 ML IVPB ONE (21:30)
[2022-10-08] MEDS ORDERED: MEROPENEM 2 GM in SODIUM CHLORIDE 0.9% 100 ML IVPB STA (21:32)
--- NOTE | 2022-10-08 21:32 | CT ---
EXAMINATION TYPE: CT ChestAbdPelvis w con CT DLP: 1025.3 mGycm, Automated exposure control for dose reduction was used. DATE OF EXAM: 10/08/2022 9:18 PM COMPARISON: 07/19/2020 CLINICAL INDICATION:Female, 42 years old with history of ams, abd distention, ams Technique: Multiple axial images of the chest, abdomen, and pelvis were obtained. Two-dimensional cor onal and sagittal reconstructions were obtained. Contrast used:100 mL of Isovue 300 with IV Contrast, Oral contrast used: without Oral Contrast Findings: CHEST: LUNGS/ PLEURA: There is ground glass opacities in the anterior spinal aspect of the lungs bilaterally as well as the lingula and the left lower lung. No pneumothorax. AIRWAY: Patent and unremarkable. HEART: Size within normal limits. MEDIASTINUM: No gross evidence of adenopathy. VASCULATURE: No aortic aneurysm. MUSCULOSKELETAL: No acute osseous abnormalities. SOFT TISSUES/LYMPH NODES: Unremarkable. LOWER NECK: No significant findings. ABDOMEN: ABDOMEN LIVER: Diffusely hypoattenuating parenchyma. The liver is enlarged. Somewhat heterogenous enhancement pattern is noted. GALLBLADDER AND BILE DUCTS: Unremarkable. PANCREAS: Unremarkable. SPLEEN: Unremarkable. ADRENAL GLANDS: Unremarkable. KIDNEYS AND URETERS: No evidence of hydronephrosis or renal calculus. The ureters are unremarkable. PELVIS BLADDER: Unremarkable REPRODUCTIVE: Unremarkable. ABDOMEN & PELVIS STOMACH AND BOWEL: Circumferential wall thickening of the gastric lumen with hyperemic mucosa as well as nondistention of the colon. There is submucosal fat deposition throughout the colon. No evidence of bowel obstruction. The appendix not definitively visualized. PERITONEUM: No evidence of pneumoperitoneum or free fluid. VASCULATURE: No evidence of aortic aneurysm. MUSCULOSKELETAL: No acute osseous abnormalities LYMPH NODES: No gross evidence for lymphadenopathy. SOFT TISSUE/ABDOMINAL WALL: Unremarkable IMPRESSION: Multiple findings within this patient which are abnormal. 1. Scattered airspace opacities concerning for infectious/inflammatory process. 2. Airspace opacities in the anterior upper lungs are somewhat wedge-shaped. Consider correlation wi th d-dimer in the setting of pulmonary infarct. 3. Hepatic steatosis within hepatomegaly. Correlate with serum markers for hepatitis. 4. Nondistended large bowel with circumferential suspected pseudo wall thickening with submucosal fa t deposition. Alternatively findings could represent component of colitis. 5. Hyperemic gastric mucosa correlate for gastritis.
[2022-10-08] MEDS ORDERED: LACTULOSE 200 GM/300 ML (FROM 1/2 GAL JUG) RECTAL ONE (21:33)
[2022-10-08] MEDS ORDERED: VANCOMYCIN 1,250 MG in SODIUM CHLORIDE 0.9% 250 ML IVPB STA (21:33)
[2022-10-08] MEDS ORDERED: SODIUM CHLORIDE 0.9% 500 ML 500 ML IV STA (21:36)
--- NOTE | 2022-10-08 21:37 | XR ---
EXAMINATION TYPE: XR chest 1V portable DATE OF EXAM: 10/08/2022 9:21 PM COMPARISON: CT chest from same date TECHNIQUE: XR chest 1V portable Frontal view of the chest. CLINICAL INDICATION:Female, 42 years old with history of ams; FINDINGS: Lungs/Pleura: Airspace opacities scattered throughout the lung. As seen on same day CT. Pulmonary vascularity: Unremarkable. Heart/mediastinum: Cardiomediastinal silhouette is unremarkable. Musculoskeletal: No acute osseous pathology. IMPRESSION: Airspace opacities as seen on same day CT
[2022-10-08] MEDS: ACETAMINOPHEN SUPPOSITORY 650 MG SUPP RECTAL STA (22:02)
[2022-10-08] MEDS ORDERED: HALOPERIDOL LACTATE 5 MG/ML 1 ML VIAL IVP STA ×2 (22:04→23:30)
--- NOTE | 2022-10-08 22:07 | ED ---
General Adult HPI - General Chief complaint: Altered Mental Status Stated complaint: Altered Mental Time Seen by Provider: 10/08/22 20:31 Source: EMS, RN notes reviewed, old records reviewed Mode of arrival: EMS Limitations: altered mental status - History of Present Illness Initial comments: Patient is a 42-year-old female with past medical history remarkable for alcohol liver disease, alcohol abuse, possible polysubstance abuse, who presents to [facility] for altered mental status. Is normally a and O 4. The last 2 days is slowly become more altered. Has been coughing per family. Last drink was on Saturday night. Is currently Saturday. Concern for alcohol withdrawal. Patient had soft blood pressures with systolics in the 100s. She is tachycardic and agitated. She is unable to provide any history. Patient's fiance is at bedside and provides additional patient history. States she still drinks despite them asking her not to. Has a history of anemia. No bleeding. Has been acting abnormal since yesterday per patient's fiance. Was complaining of some visual disturbances, and on the right back today became more and more altered. They called EMS over concern for her current status. Patient is full code.No nausea or vomiting that they noted. No diarrhea that they noted. - Related Data Home Medications Medication Instructions Recorded Confirmed Acetaminophen Tab [Tylenol] 650 mg PO Q6H PRN 06/18/22 10/08/22 Loperamide HCl [Imodium A-D] 2 - 4 mg PO BID PRN 06/18/22 10/08/22 Allergies Allergy/AdvReac Type Severity Reaction Status Date / Time cephalexin monohydrate Allergy Rash/Hives Verified 10/08/22 21:13 [From Keflex] codeine Allergy Rash/Hives Verified 10/08/22 21:13 Review of Systems ROS Statement: Those systems with pertinent positive or pertinent negative responses have been documented in the HPI. ROS Other: All systems not noted in ROS Statement are negative. Past Medical History Past Medical History: GERD/Reflux Additional Past Medical History / Comment(s): Hepatic steatosis, ETOH abuse, gastritis, duodenitis, lower GI bleed, colitis, hemorrhoids, bronchitis, R side nephrolithiasis with surgery, bilateral ovarian cysts, neuropathy bilateral hands/legs and tops of both feet, hypokalemia, hypoalbumenemia, pancytopenia. History of Any Multi-Drug Resistant Organisms: None Reported Past Surgical History: Appendectomy, Orthopedic Surgery Additional Past Surgical History / Comment(s): Left knee surgeries-3 arthroscopic and one open, EGDs, colonoscopies, R sided lithotripsy. Past Anesthesia/Blood Transfusion Reactions: No Reported Reaction Additional Past Anesthesia/Blood Transfusion Reaction / Comment(s): Pt has received blood in past without reaction. Past Psychological History: Depression Smoking Status: Current every day smoker Past Alcohol Use History: Daily Past Drug Use History: Marijuana - Past Family History Mother Family Medical History: Diabetes Mellitus Additional Family Medical History / Comment(s): Borderline HTN Brother(s) Family Medical History: Diabetes Mellitus Father Family Medical History: Hypertension Additional Family Medical History / Comment(s): BOARDERLINE DM General Exam - General Exam Comments Initial Comments: General: Patient is tachypneic, appears altered. His jaundice. Actively coughing. HEAD: Normal with no signs of head trauma. EYES: PERRLA, EOMI, conjunctiva normal, no discharge. Pupils are 3-4 mm and symmetrical. ENT: Hearing grossly intact, normal oropharynx. RESPIRATORY: Coarse breath sounds bilaterally. Increased work of breathing. Mild hypoxemia corrected with 2 L nasal cannula. C/V: Tachycardic. S1 and S2 auscultated. No peripheral edema. Peripheral pulses are 2+ and intact throughout. ABD: Abdomen is soft, no obvious tenderness. Somewhat distended with fluid wave, possibly chronic due to her history of alcohol liver disease. EXT: Normal range of motion, no obvious deformity SKIN: No rashes or lesions observed on exposed skin. NEURO: Alert and oriented 1. Patient is agitated. Moving all extremities. Appears in acute alcohol withdrawals Limitations: altered mental status Course Vital Signs 10/08/22 10/08/22 10/08/22 20:55 22:57 23:11 Temperature 100.1 F H Pulse Rate 138 H 120 H 147 H Respiratory 20 26 H Rate Blood Pressure 113/68 97/54 111/49 O2 Sat by Pulse 100 98 Oximetry Fraction of Inspired Oxygen (FIO2) 10/08/22 10/09/22 10/09/22 23:32 00:10 00:18 Temperature Pulse Rate Respiratory Rate Blood Pressure O2 Sat by Pulse Oximetry Fraction of 100 100 100 Inspired Oxygen (FIO2) Procedures - Central Line Placement Right Femoral Consent Obtained: verbal consent, emergent situation Patient Placed on Monitor/Pulse Ox: Yes MD Prep: mask, gown, gloves Central Line Prep: Chlorhexidine scrub Local Anesthesia Used: Lidocaine 1% Amount of Anesthesia Used (mls): 5 Ultrasound Used for Placement: Yes Central Line Lumen Inserted: triple Bloods Obtained for Lab: No Central Line Position: good blood return, all ports aspirated, flushed, capped, sutured in place with nylon Dressing Applied: Tegaderm Patient Tolerated Procedure: well Complications: other (bleeding at site, controlled with TXA soaked gauze.) - Intubation Sedative: Etomidate Mg Given: 20 Paralytic: Rocuronium Mg Given: 50 Laryngoscope: other (glidescope) Size: 4 ET Tube Size: 7.5 Tube Secured Depth (cm): 21 Tube Secured Location: lips Tube Placement Confirmation: visualized tube passing through cords, no breath sounds over epigastrium, confirmation by capnometry Patient Tolerated Procedure: well Intubation Complications: other (Initial right mainstem intubation. Pulled tube back to 21cm at the lips which improved airation and hypoxia resolved.) - Sepsis Sepsis Focused Exam #1 Time Sepsis Criteria Met: 21:25 Sepsis Focused Exam Date: 10/08/22 Sepsis Focused Exam Time: 23:15 Sepsis Focused Exam Complete: Yes Vital Signs & RN Notes Reviewed: Yes Capillary Refill: > 2 Seconds: Fingers, Toes Peripheral Pulses: Normal: Radial (R), Radial (L) Skin Color: Normal for Patient, Jaundice Respiratory Exam: respiratory distress, other (worsening hypoxia, decision to intubate) Cardiovascular Exam: tachycardia Medical Decision Making - Medical Decision Making Was pt. sent in by a medical professional or institution (, PA, PRECISION HONING MACHINE OPERATOR, urgent care, hospital, or skilled nursing...) When possible be specific @ -No Did you speak to anyone other than the patient for history (EMS, parent, family, police, friend...)? What history was obtained from this source @ -Patient's fianc is the primary historian for the patient as the patient is altered. Did you review nursing and triage notes (agree or disagree)? Why? @ -I reviewed and agree with nursing and triage notes Were old charts reviewed (outside hosp., previous admission, EMS record, old EKG, old radiological studies, urgent care reports/EKG's, skilled nursing records)? Report findings @ -Old charts and labs were reviewed from June 2022. Differential Diagnosis (chest pain, altered mental status, abdominal pain women, abdominal pain men, vaginal bleeding, weakness, fever, dyspnea, syncope, headache, dizziness, GI bleed, back pain, seizure, CVA, palpatations, mental health, musculoskeletal)? @ -Differential Altered Mental Status: Hypoglycemia, DKA, hypercapnia, ETOH, overdose, CO poisoning, trauma, myxedema coma, HTN encephalopathy, infection, encephalitis, psychosis, intercranial hemorrhage, hepatic encephalopathy, meningitis, CVA, this is not meant to be an all-inclusive list EKG interpreted by me (3pts min.). @ -As above X-rays interpreted by me (1pt min.). @ -Patient has scattered airspace opacities. Concerning for pneumonia. CT interpreted by me (1pt min.). @ -CT brain reveals no obvious intracranial process or injury. CT of the chest, abdomen, pelvis reveals bilateral pneumonia. Hepatic steatosis with hepatomegaly. Concerning for alcohol liver disease. Patient also appears to have a history of colitis or gastritis. U/S interpreted by me (1pt. min.). @ -Gallbladder US pending at time of admission What testing was considered but not performed or refused? (CT, X-rays, U/S, labs)? Why? @ -None What meds were considered but not given or refused? Why? @ -None Did you discuss the management of the patient with other professionals (professionals i.e. , PA, PRECISION HONING MACHINE OPERATOR, lab, RT, psych nurse, social media developer, campground caretaker, teacher, sailing officer, case preparer and liner)? Give summary @ -Spoke with Dr. Brandon of GI who agreed that the patient remain here for her evaluation. She was consulted. Spoke with Dr. Lopez of ICU who accepted the patient to unit. Was in agreement with the management. Spoke with Humberto CRAIG of ICU to update him on the patient as well and that the patient was going to be intubated and is now on pressors. He expressed understanding. Spoke with the admitting team, ADDIE Sanchez of [facility] accepted the patient. Was smoking cessation discussed for >3mins.? @ -No Was critical care preformed (if so, how long)? @ -Yes, 75 minutes. Were there social determinants of health that impacted care today? How? (Homelessness, low income, unemployed, alcoholism, drug addiction, transportation, low edu. Level, literacy, decrease access to med. care, detention, rehab)? @ -Alcoholism Was there de-escalation of care discussed even if they declined (Discuss DNR or withdrawal of care, Hospice)? DNR status @ -No What co-morbidities impacted this encounter? (DM, HTN, Smoking, COPD, CAD, Cancer, CVA, ARF, Chemo, Hep., AIDS, mental health diagnosis, sleep apnea, morbid obesity)? @ -alcoholic liver disease Was patient admitted / discharged? Hospital course, mention meds given and route, prescriptions, significant lab abnormalities, going to OR and other pertinent info. @ -Based on the Patient's presentation and physical exam, I'm concerned for sepsis and alcohol withdrawals to the patient. She'll be given Ativan, a small amount of IV fluids at this time over concern for volume overload, as well as broad workup for altered mental status. This included CT imaging of the brain, chest and pelvis. Tachycardia likely secondary to infection as well as alcohol withdrawal. Blood pressure is adequate. Family was in agreement with this plan. EKG showed no signs of ischemia but sinus tachycardia. Imaging is remarkable for findings concerning for pneumonia, colitis, gastritis. She also has h epatomegaly. Radiology was concerned for possible wedgelike infiltrate, however low concern for PE at this time concerning patient has a chronic hepatic coagulopathy secondary to her alcoholic liver disease. Patient's labs are remarkable for chronic anemia with hemoglobin of 8.9. No obvious source of acute bleeding at this time. Rectal exam is unremarkable. Patient is chronically thrombocytopenic with a platelet, 67 which is improved from her most recent. INR is 3.8. Blood gas shows a respiratory alkalosis compensating for metabolic acidosis considering the patient has a lactic acidosis of 10.4. She is hypoglycemic an amp of D50 was ordered for the patient. Ration has an acutely elevated AST, ALT, alk phos that is minimal. Ammonia is also elevated to 69. Troponin undetectable. Covid, flu, RSV negative. Alcohol level is currently 0. Iast alcoholic drink was on Saturday. Patient has a lactic acidosis of 10.4. On reevaluation, patient is requiring increased amounts of Ativan for sedation and I will also administer Haldol as the patient does have soft blood pressures at this time. Due to the lack of IV access, a right femoral central line was placed by myself. I spoke patient's fianc who agreed to this as well as stating that the patient is full code. Based on workup, there is concern for sepsis at this time, 21:25. Was started on broad-spectrum meropenem, vancomycin and we will complete the 30 mL per KG fluid bolus at this time and put her on maintenance fluids. Patient's blood pressures falling fluid boluses as well as Ativan administration did dip, and she became relatively hypotensive. We did start the patient on a Levophed drip at this time. Lactulose enemas were ordered as well as Tylenol suppository for the patient's fever. All ferment was also ordered as the patient did not tolerate the Tylenol suppository. We will continue lactulose enemas every 4. I spoke with the optical element coater, Dr. Lopez who did accept the patient to ICU. He was in agreement with the plan. I did discuss with him that I did have high concern for possible sending cholangitis however CT imaging does not appear to reveal that. We will consult GI services. I did speak with Dr. Brandon to ensure she is okay with a consult so the patient can remain at this hospital and she did express that based on the labs and she can remain here at this hospital. Consult was placed to Dr. Brandon. Dr. Rivera of infectious disease was also consulted. I spoke with the admitting physician, Laura of [facility] and patient was admitted under their service. Patient was agitated, was responding to Ativan administration. Patient does appear to be protecting her airway, and at this time is not tiring out in terms of her respiratory status. We will continue to monitor closely but I do not believe that she requires intubation at this time. It will be difficult to match her rate if we do intubate. Patient is responding well to Levophed. She will be admitted to the ICU. I discussed at length with the patient's fianc as well as family and they understood the patient is in critical condition and were agreement with the plan. Patient remained boarding in the ER for a short period time, her work of breathing did increase and she began to become hypoxic and she was requiring mo re Ativan. The decision was made at this time to intubate the patient. I did discuss this with the patient's fianc and family and they were in agreement with this plan. Intubation was successful with glidescope. Intubated using 7.5 ET tube. Initially right mainstem placement, however upon pulling back patient's oxygenation improved. Now 21 at the lip. I updated ICU nurse practitioner Humberto over the phone. I used perfect serve to update ICU attending Dr. Taylor. Both expressed understanding and were in agreement with the plan. Patient is hemodynamically's table on Levophed drip as well as now being mechanically ventilated. Was started on propofol for sedation as well as her alcohol withdrawals. Was admitted to the ICU in critical condition. Family was updated multiple times by myself. Undiagnosed new problem with uncertain prognosis? @ -Yes Drug Therapy requiring intensive monitoring for toxicity (Heparin, Nitro, Insuli n, Cardizem)? @ -No Were any procedures done? @ -Central line placement, intubation Diagnosis/symptom? @ -Septic shock,, lactic acidosis, likely secondary to pneumonia Acute, or Chronic, or Acute on Chronic? @ -Acute Uncomplicated (without systemic symptoms) or Complicated (systemic symptoms)? @ -Complicated Side effects of treatment? @ -No Exacerbation, Progression, or Severe Exacerbation? @ -No Poses a threat to life or bodily function? How? (Chest pain, [place], VA, pneumonia, PE, COPD, DKA, ARF, appy, cholecystitis, CVA, Diverticulitis, Homicidal, Suicidal, threat to staff... and all critical care pts) @ -Yes Diagnosis/symptom? @ -Hypoxic respiratory failure requiring intubation mechanical ventilation Acute, or Chronic, or Acute on Chronic? @ -Acute Uncomplicated (without systemic symptoms) or Complicated (systemic symptoms)? @ -Complicated Side effects of treatment? @ -none Exacerbation, Progression, or Severe Exacerbation] @ -no Poses a threat to life or bodily function? @ -Yes Diagnosis/symptom? @ -Alcohol withdrawals Acute, or Chronic, or Acute on Chronic? @ -Acute Uncomplicated (without systemic symptoms) or Complicated (systemic symptoms)? @ -Complicated Side effects of treatment? @ -Treatment with Ativan results in respiratory depression Exacerbation, Progression, or Severe Exacerbation] @ -Severe exacerbation Poses a threat to life or bodily function? @ -Yes Diagnosis/symptom? @ -Altered mental status, hepatic encephalopathy Acute, or Chronic, or Acute on Chronic? @ -Acute Uncomplicated (without systemic symptoms) or Complicated (systemic symptoms)? @ -Complicated Side effects of treatment? @ -none Exacerbation, Progression, or Severe Exacerbation] @ -no Poses a threat to life or bodily function? @ -Yes Diagnosis/symptom? @ -Alcoholic liver diseasem, hyperbilirubinemia, Acute, or Chronic, or Acute on Chronic? @ -Acute on Chronic Uncomplicated (without systemic symptoms) or Complicated (systemic symptoms)? @ -Complicated Side effects of treatment? @ -none Exacerbation, Progression, or Severe Exacerbation] @ -Progression Poses a threat to life or bodily function? @ -Yes Diagnosis/symptom? @ -Macrocytic anemia Acute, or Chronic, or Acute on Chronic? @ -Chronic Uncomplicated (without systemic symptoms) or Complicated (systemic symptoms)? @ -Uncomplicated Side effects of treatment? @ -none Exacerbation, Progression, or Severe Exacerbation] @ -no Poses a threat to life or bodily function? @ -no Diagnosis/symptom? @ -Thrombocytopenia Acute, or Chronic, or Acute on Chronic? @ -Chronic Uncomplicated (without systemic symptoms) or Complicated (systemic symptoms)? @ -Uncomplicated Side effects of treatment? @ -none Exacerbation, Progression, or Severe Exacerbation] @ -no Poses a threat to life or bodily function? @ -no - Lab Data Result diagrams: 10/08/22 20:35 10/08/22 20:35 Lab Results 10/08/22 10/08/22 10/08/22 Range/Units 20:35 20:35 20:35 WBC 7.7 (3.8-10.6) k/uL RBC 2.08 L (3.80-5.40) m/uL Hgb 8.9 L (11.4-16.0) gm/dL Hct 26.7 L (34.0-46.0) % MCV 128.8 H (80.0-100.0) fL MCH 42.8 H (25.0-35.0) pg MCHC 33.3 (31.0-37.0) g/dL RDW 18.2 H (11.5-15.5) % Plt Count 67 L (150-450) k/uL MPV 10.4 Neutrophils % 86 % Lymphocytes % 9 % Monocytes % 4 % Eosinophils % 1 % Basophils % 0 % Neutrophils # 6.6 (1.3-7.7) k/uL Lymphocytes # 0.7 L (1.0-4.8) k/uL Monocytes # 0.3 (0-1.0) k/uL Eosinophils # 0.1 (0-0.7) k/uL Basophils # 0.0 (0-0.2) k/uL Manual Slide Review Performed Toxic Granulation Present Hypochromasia Slight Poikilocytosis (manual Present Anisocytosis Slight Anisocytosis (manual) Present Macrocytosis Marked A PT 37.2 H (9.0-12.0) sec INR 3.8 H (<1.2) APTT 41.5 H (22.0-30.0) sec Sample Site ABG pH (7.35-7.45) ABG pCO2 (35-45) mmHg ABG pO2 (83-108) mmHg ABG HCO3 (21-25) mmol/L ABG Total CO2 (19-24) mmol/L ABG O2 Saturation (94-97) % ABG Base Excess mmol/L Dom Test VBG pH (7.31-7.41) VBG pCO2 (37-51) mmHg VBG HCO3 (24-28) mmol/L FiO2 % Sodium 132 L (137-145) mmol/L Potassium 4.0 (3.5-5.1) mmol/L Chloride 93 L (98-107) mmol/L Carbon Dioxide 21 L (22-30) mmol/L Anion Gap 18 mmol/L BUN 12 (7-17) mg/dL Creatinine 0.94 (0.52-1.04) mg/dL Est GFR (CKD-EPI)AfAm 87 (>60 ml/min/1.73 sqM) Est GFR (CKD-EPI)NonAf 76 (>60 ml/min/1.73 sqM) Glucose 66 L (74-99) mg/dL POC Glucose (mg/dL) (70-110) mg/dL POC Glu Audiovisual Lead Technician ID Lactic Ac Sepsis Rflx Plasma Lactic Acid Paulino (0.7-2.0) mmol/L Calcium 8.0 L (8.4-10.2) mg/dL Total Bilirubin 9.7 H (0.2-1.3) mg/dL AST 853 H (14-36) U/L ALT 98 H (4-34) U/L Alkaline Phosphatase 129 H (38-126) U/L Ammonia (<30) umol/L Creatine Kinase (30-135) U/L Troponin I (0.000-0.034) ng/mL Total Protein 6.4 (6.3-8.2) g/dL Albumin 2.8 L (3.5-5.0) g/dL HCG, Qual Not Detected Serum Alcohol <10 mg/dL Influenza Type A (PCR) (Not Detectd) Influenza Type B (PCR) (Not Detectd) RSV (PCR) (Not Detectd) SARS-CoV-2 (PCR) (Not Detectd) 10/08/22 10/08/22 10/08/22 Range/Units 20:35 20:35 20:35 WBC (3.8-10.6) k/uL RBC (3.80-5.40) m/uL Hgb (11.4-16.0) gm/dL Hct (34.0-46.0) % MCV (80.0-100.0) fL MCH (25.0-35.0) pg MCHC (31.0-37.0) g/dL RDW (11.5-15.5) % Plt Count (150-450) k/uL MPV Neutrophils % % Lymphocytes % % Monocytes % % Eosinophils % % Basophils % % Neutrophils # (1.3-7.7) k/uL Lymphocytes # (1.0-4.8) k/uL Monocytes # (0-1.0) k/uL Eosinophils # (0-0.7) k/uL Basophils # (0-0.2) k/uL Manual Slide Review Toxic Granulation Hypochromasia Poikilocytosis (manual Anisocytosis Anisocytosis (manual) Macrocytosis PT (9.0-12.0) sec INR (<1.2) APTT (22.0-30.0) sec Sample Site ABG pH (7.35-7.45) ABG pCO2 (35-45) mmHg ABG pO2 (83-108) mmHg ABG HCO3 (21-25) mmol/L ABG Total CO2 (19-24) mmol/L ABG O2 Saturation (94-97) % ABG Base Excess mmol/L Dom Test VBG pH 7.54 H (7.31-7.41) VBG pCO2 23 L (37-51) mmHg VBG HCO3 19 L (24-28) mmol/L FiO2 % Sodium (137-145) mmol/L Potassium (3.5-5.1) mmol/L Chloride (98-107) mmol/L Carbon Dioxide (22-30) mmol/L Anion Gap mmol/L BUN (7-17) mg/dL Creatinine (0.52-1.04) mg/dL Est GFR (CKD-EPI)AfAm (>60 ml/min/1.73 sqM) Est GFR (CKD-EPI)NonAf (>60 ml/min/1.73 sqM) Glucose (74-99) mg/dL POC Glucose (mg/dL) (70-110) mg/dL POC Glu Audiovisual Lead Technician ID Lactic Ac Sepsis Rflx Plasma Lactic Acid Paulino 10.4 H* (0.7-2.0) mmol/L Calcium (8.4-10.2) mg/dL Total Bilirubin (0.2-1.3) mg/dL AST (14-36) U/L ALT (4-34) U/L Alkaline Phosphatase (38-126) U/L Ammonia 69 H (<30) umol/L Creatine Kinase (30-135) U/L Troponin I <0.012 (0.000-0.034) ng/mL Total Protein (6.3-8.2) g/dL Albumin (3.5-5.0) g/dL HCG, Qual Serum Alcohol mg/dL Influenza Type A (PCR) (Not Detectd) Influenza Type B (PCR) (Not Detectd) RSV (PCR) (Not Detectd) SARS-CoV-2 (PCR) (Not Detectd) 10/08/22 10/08/22 10/08/22 Range/Units 20:35 20:59 21:11 WBC (3.8-10.6) k/uL RBC (3.80-5.40) m/uL Hgb (11.4-16.0) gm/dL Hct (34.0-46.0) % MCV (80.0-100.0) fL MCH (25.0-35.0) pg MCHC (31.0-37.0) g/dL RDW (11.5-15.5) % Plt Count (150-450) k/uL MPV Neutrophils % % Lymphocytes % % Monocytes % % Eosinophils % % Basophils % % Neutrophils # (1.3-7.7) k/uL Lymphocytes # (1.0-4.8) k/uL Monocytes # (0-1.0) k/uL Eosinophils # (0-0.7) k/uL Basophils # (0-0.2) k/uL Manual Slide Review Toxic Granulation Hypochromasia Poikilocytosis (manual Anisocytosis Anisocytosis (manual) Macrocytosis PT (9.0-12.0) sec INR (<1.2) APTT (22.0-30.0) sec Sample Site ABG pH (7.35-7.45) ABG pCO2 (35-45) mmHg ABG pO2 (83-108) mmHg ABG HCO3 (21-25) mmol/L ABG Total CO2 (19-24) mmol/L ABG O2 Saturation (94-97) % ABG Base Excess mmol/L Dom Test VBG pH (7.31-7.41) VBG pCO2 (37-51) mmHg VBG HCO3 (24-28) mmol/L FiO2 % Sodium (137-145) mmol/L Potassium (3.5-5.1) mmol/L Chloride (98-107) mmol/L Carbon Dioxide (22-30) mmol/L Anion Gap mmol/L BUN (7-17) mg/dL Creatinine (0.52-1.04) mg/dL Est GFR (CKD-EPI)AfAm (>60 ml/min/1.73 sqM) Est GFR (CKD-EPI)NonAf (>60 ml/min/1.73 sqM) Glucose (74-99) mg/dL POC Glucose (mg/dL) 72 (70-110) mg/dL POC Glu Audiovisual Lead Technician ID Deniz Mcgowan Lactic Ac Sepsis Rflx Plasma Lactic Acid Paulino (0.7-2.0) mmol/L Calcium (8.4-10.2) mg/dL Total Bilirubin (0.2-1.3) mg/dL AST (14-36) U/L ALT (4-34) U/L Alkaline Phosphatase (38-126) U/L Ammonia (<30) umol/L Creatine Kinase 78 (30-135) U/L Troponin I (0.000-0.034) ng/mL Total Protein (6.3-8.2) g/dL Albumin (3.5-5.0) g/dL HCG, Qual Serum Alcohol mg/dL Influenza Type A (PCR) Not Detected (Not Detectd) Influenza Type B (PCR) Not Detected (Not Detectd) RSV (PCR) Not Detected (Not Detectd) SARS-CoV-2 (PCR) Not Detected (Not Detectd) 10/08/22 10/08/22 Range/Units 21:18 22:12 WBC (3.8-10.6) k/uL RBC (3.80-5.40) m/uL Hgb (11.4-16.0) gm/dL Hct (34.0-46.0) % MCV (80.0-100.0) fL MCH (25.0-35.0) pg MCHC (31.0-37.0) g/dL RDW (11.5-15.5) % Plt Count (150-450) k/uL MPV Neutrophils % % Lymphocytes % % Monocytes % % Eosinophils % % Basophils % % Neutrophils # (1.3-7.7) k/uL Lymphocytes # (1.0-4.8) k/uL Monocytes # (0-1.0) k/uL Eosinophils # (0-0.7) k/uL Basophils # (0-0.2) k/uL Manual Slide Review Toxic Granulation Hypochromasia Poikilocytosis (manual Anisocytosis Anisocytosis (manual) Macrocytosis PT (9.0-12.0) sec INR (<1.2) APTT (22.0-30.0) sec Sample Site rbrac ABG pH 7.39 (7.35-7.45) ABG pCO2 31 L (35-45) mmHg ABG pO2 72 L (83-108) mmHg ABG HCO3 19 L (21-25) mmol/L ABG Total CO2 20 (19-24) mmol/L ABG O2 Saturation 94.6 (94-97) % ABG Base Excess -5.9 mmol/L Dom Test Yes VBG pH (7.31-7.41) VBG pCO2 (37-51) mmHg VBG HCO3 (24-28) mmol/L FiO2 32 % Sodium (137-145) mmol/L Potassium (3.5-5.1) mmol/L Chloride (98-107) mmol/L Carbon Dioxide (22-30) mmol/L Anion Gap mmol/L BUN (7-17) mg/dL Creatinine (0.52-1.04) mg/dL Est GFR (CKD-EPI)AfAm (>60 ml/min/1.73 sqM) Est GFR (CKD-EPI)NonAf (>60 ml/min/1.73 sqM) Glucose (74-99) mg/dL POC Glucose (mg/dL) (70-110) mg/dL POC Glu Audiovisual Lead Technician ID Lactic Ac Sepsis Rflx Y Plasma Lactic Acid Paulino (0.7-2.0) mmol/L Calcium (8.4-10.2) mg/dL Total Bilirubin (0.2-1.3) mg/dL AST (14-36) U/L ALT (4-34) U/L Alkaline Phosphatase (38-126) U/L Ammonia (<30) umol/L Creatine Kinase (30-135) U/L Troponin I (0.000-0.034) ng/mL Total Protein (6.3-8.2) g/dL Albumin (3.5-5.0) g/dL HCG, Qual Serum Alcohol mg/dL Influenza Type A (PCR) (Not Detectd) Influenza Type B (PCR) (Not Detectd) RSV (PCR) (Not Detectd) SARS-CoV-2 (PCR) (Not Detectd) - EKG Data -: EKG Interpreted by Me EKG Comments: 12-lead Electrocardiogram Interpretation Note EKG was reviewed and interpreted by myself. 12-lead ECG performed at 2030 is interpreted by me as revealing sinus tachycardia at a rate of 136 beats per minute. Coyote is normal. SD interval is 116 ms, QRS duration is 93 ms, QTc is 410 ms.. There were no ST or T wave abnormalities to suggest myocardial isc hemia or injury. R wave progression across the precordium was satisfactory. By my interpretation this EKG is non-diagnostic for acute ischemia. Critical Care Time Critical Care Time: Yes Total Critical Care Time: 75 Critical Care Time: Upon my evaluation, this patient had a high probability of imminent or life- threatening deterioration due to septic shock, hepatic encephalopathy, pn eumonia, lactic acidosis, thrombocytopenia, hypoxic respiratory failure, alcohol withdrawals, which required my direct attention, intervention, and personal management. I have personally provided 75 minutes of critical care time exclusive of time spent on separately billable procedures. Time includes review of laboratory data, radiology results, discussion with consultants, and monitoring for potential decompensation. Interventions were performed as documented in my note. Disposition Clinical Impression: Altered mental status, Hepatic encephalopathy, Alcoholic liver disease, Hyperbilirubinemia, Pneumonia, Chronic anemia, Lactic acidosis, Alcohol abuse with withdrawal, Alcohol withdrawal, Sepsis with acute hypoxic respiratory failure and septic shock Disposition: ADMITTED IP TO THIS HOSP Condition: Critical Time of Disposition: 22:00
[2022-10-08] MEDS ORDERED: LORazepam 2 MG/ML INJ IV PRN ×2 (22:09)
[2022-10-08] MEDS ORDERED: THIAMINE 100 MG/ML 2 ML VIAL IM STA (22:09)
[2022-10-08 22:14] LABS: ABG Base Excess -5.9 mmol/L; ABG HCO3 19 mmol/L (21-25); ABG Oxygen Saturation 94.6 % (94-97); ABG PCO2 31 mmHg (35-45); ABG PH 7.39 (7.35-7.45); ABG PO2 72 mmHg (83-108); ABG TCO2 20 mmol/L (19-24); Allen Test Performed? Yes
[2022-10-08] MEDS ORDERED: NALOXONE 0.4 MG/ML 1 ML VIAL IV PRN (22:44)
[2022-10-08] MEDS ORDERED: LACTATED RINGERS 1,000 ML IV SCH (22:45)
[2022-10-08 22:50] LABS: Toxic Granulation Present
[2022-10-08 22:52] LABS: Anisocytosis (M) Present
[2022-10-08 22:53] LABS: Poikilocytosis (M) Present
[2022-10-08 22:54] LABS: Platelet Count 67 k/uL (150-450)
[2022-10-08] MEDS ORDERED: ACETAMINOPHEN IV (For NPO) 1,000 MG in EMPTY BAG 1 BAG IVPB STA (22:55)
[2022-10-08] MEDS ORDERED: TRANEXAMIC ACID 1,000 MG/10 ML VIAL IRRIGATION ONE (22:58)
[2022-10-08 23:24] LABS: Glucose,Whole Blood 137 mg/dL (70-110)
[2022-10-08] MEDS ORDERED: ETOMIDATE 2 MG/ML 10 ML VIAL IVP STA (23:30)
[2022-10-08] MEDS ORDERED: ROCURONIUM 10 MG/ML (5 ML VIAL) IV STA (23:31)
--- NOTE | 2022-10-09 | XR ---
EXAMINATION TYPE: XR chest 1V DATE OF EXAM: 10/08/2022 11:48 PM COMPARISON: Chest radiographs from 10/08/2022. TECHNIQUE: XR chest 1V Frontal view of the chest. CLINICAL INDICATION:Female, 42 years old with history of Confirm Placement; FINDINGS: Lungs/Pleura: Persistent scattered airspace opacities. Most pronounced in right upper lobe previous c omplete atelectasis of the left lung. Pulmonary vascularity: Unremarkable. Heart/mediastinum: Cardiomediastinal silhouette is partially obscured due to overlying and adjacent o pacities. Musculoskeletal: No acute osseous pathology. Other findings: None Lines/Tubes: The endotracheal tube is in the right main bronchus. Retraction of at least 6 cm Nasogastric tube terminates within the gastric lumen. IMPRESSION: The endotracheal tube is in the right main bronchus. Retraction of at least 6 cm is recommended. This results in atelectasis/collapse of the left lung. Screening imaging showed improved position of the endotracheal tube.
--- NOTE | 2022-10-09 00:01 | XR ---
EXAMINATION TYPE: XR chest 1V portable DATE OF EXAM: 10/08/2022 11:48 PM COMPARISON: Same day TECHNIQUE: XR chest 1V portable Frontal view of the chest. CLINICAL INDICATION:Female, 42 years old with history of ETT adjustment; FINDINGS: Endotracheal tube now in appropriate position. Improved aeration of the left lung. There remains airs pace opacities throughout the lungs. Nasogastric tube in appropriate position. IMPRESSION: Endotracheal tube now in appropriate position with improved aeration of the left lung.
[2022-10-09 00:19] LABS: Glucose,Whole Blood 111 mg/dL (70-110)
[2022-10-09] MEDS ORDERED: ONDANSETRON 4 MG/2 ML VIAL IVP STA (00:35)
[2022-10-09 00:38] LABS: ABG Base Excess -6.2 mmol/L; ABG HCO3 19 mmol/L (21-25); ABG Oxygen Saturation 98.2 % (94-97); ABG PCO2 35 mmHg (35-45); ABG PH 7.36 (7.35-7.45); ABG PO2 104 mmHg (83-108); ABG TCO2 20 mmol/L (19-24); Allen Test Performed? Yes
[2022-10-09] MEDS: ACETAMINOPHEN SUPPOSITORY 650 MG SUPP RECTAL STA (00:44)
--- NOTE | 2022-10-09 01:30 | US ---
EXAM: US Abdomen Limited, Gallbladder CLINICAL HISTORY: ITS.REASON US Reason: liver disease TECHNIQUE: Real-time ultrasound of the right upper quadrant with image documentation. COMPARISON: No relevant prior studies available. FINDINGS: Liver: Fatty infiltration of the liver. Gallbladder: Gallbladder sludge with mild wall thickening measuring up to 0.4 cm and pericholecystic fluid. Common bile duct: Unremarkable as visualized. No stones. No dilation. Common bile duct measures 2.8 mm. Pancreas: Unremarkable as visualized. Right kidney: Right kidney measures 11.0 cm. IMPRESSION: 1. Fatty infiltration of the liver. 2. Gallbladder sludge with mild wall thickening measuring up to 0.4 cm and pericholecystic fluid.
[2022-10-09] MEDS: SODIUM CHLORIDE 0.9% 1,000 ML IV SCH ×2 (01:33→10:53)
--- NOTE | 2022-10-09 01:45 | P.CNPUL ---
History of Present Illness Consult date: 10/09/22 Reason for consult: other (ICU management) Chief complaint: Altered mental status History of present illness: I am seeing this patient in new consultation today 10/09/2022 in regard to ICU management. Patient is a 42-year-old white female with past medical history significant for alcoholic liver diseas alcohol abuse, and suspected polysubstance abuse. Patient initially presented to the emergency room with family for new onset altered mental status yesterday evening. Family also reports that the patient has been coughing. Her last alcoholic drink was Saturday night. There is also concern for alcohol withdrawal. Patient is jaundiced. On top of these concerns, patient was found to be hypotensive and tachycardic on arrival to the emergency room. She is also febrile. Chest x-ray on arrival showed multifocal airspace opacities. A follow-up CT of the chest abdomen and pelvis with contrast redemonstrated the multifocal skilled scattered airspace opacities with concern for possible pneumonia, there were concerns about wedge- shape of the opacities and we will correlate with d-dimer, hepatic steatosis with hepatomegaly, nondistended large bowel with suspected pseudo-wall thickening and submucosal fat deposition which could correlate with colitis, and hyperemic gastric mucosa which could correlate for gastritis. Nonenhanced brain CT showed no acute intracranial process. Apparently, the patient became agitated in the emergency room. This agitation was treated with Ativan, and then patient became unresponsive. Emergency room physician intubated the patient to ultimately protect her airway. Preintubation ABG showed a pO2 of 72, pCO2 31, pH of 7.39. The patient is currently on mechanical ventilator settings AC, respiratory rate 24, tidal volume 400, FiO2 100%, PEEP of 5. Post-intubation chest x-ray shows the tip of the ET tube 2 centimeters from the norberto, with an NG tube coursing below the diaphragm. Patient's hypotension has been treated with 3 crystalloid boluses, and the patient has required a norepinephrine infusion currently infusing at 0.08 mics per kilogram per minute through a right femoral central line. Propofol is infusing at 5 mics per per kg per minute. The patient is calm and synchronous with mechanical ventilator at this time. Patient also has normal saline infusing at 100 mL per hour. Patient's CBC on arrival showed a WBC count of 7.7, hemoglobin 8.9, hematocrit 26.7, platelet count 67,000. Coagulation profile was abnormal with an INR 3.8. No evidence of acute bleed. CMP on arrival showed a sodium 132, potassium 4, chloride 93, serum CO2 21, B1 12, creatinine 0.94, glucose 66. Hypoglycemia was corrected and is currently 137 mg/dL. Patient's ammonia level was elevated at 69 and she is receiving lactulose. Lactic acid was elevated at 10.4. LFTs are elevated AST 153, ALT 98, and alkaline phosphatase 129. Patient has a gallbladder ultra sound pending. At this time it is unknown if the patient ingested other substances as she has a history of polysubstance abuse. A urine toxicology screen has been ordered. Pancultures are pending. Patient is currently empirically covered with meropenem and vancomycin. Patient is febrile with a T- max of 100.1F. Patient was negative for influenza, RSV, COVID-19. Patient's condition at this time is critical. Patient is a full code. Review of Systems Unable to obtain review of systems patient is endotracheally intubated to the mechanical ventilator Past Medical History Past Medical History: GERD/Reflux Additional Past Medical History / Comment(s): Hepatic steatosis, ETOH abuse, gastritis, duodenitis, lower GI bleed, colitis, hemorrhoids, bronchitis, R side nephrolithiasis with surgery, bilateral ovarian cysts, neuropathy bilateral hands/legs and tops of both feet, hypokalemia, hypoalbumenemia, pancytopenia. History of Any Multi-Drug Resistant Organisms: None Reported Past Surgical History: Appendectomy, Orthopedic Surgery Additional Past Surgical History / Comment(s): Left knee surgeries-3 arthrosco pic and one open, EGDs, colonoscopies, R sided lithotripsy. Past Anesthesia/Blood Transfusion Reactions: No Reported Reaction Additional Past Anesthesia/Blood Transfusion Reaction / Comment(s): Pt has received blood in past without reaction. Past Psychological History: Depression Smoking Status: Current every day smoker Past Alcohol Use History: Daily Past Drug Use History: Marijuana - Past Family History Mother Family Medical History: Diabetes Mellitus Additional Family Medical History / Comment(s): Borderline HTN Brother(s) Family Medical History: Diabetes Mellitus Father Family Medical History: Hypertension Additional Family Medical History / Comment(s): BOARDERLINE DM Medications and Allergies Home Medications Medication Instructions Recorded Confirmed Type Acetaminophen Tab [Tylenol] 650 mg PO Q6H PRN 12/12/22 04/03/23 History Loperamide HCl [Imodium A-D] 2 - 4 mg PO BID PRN 06/18/22 10/08/22 History Allergies Allergy/AdvReac Type Severity Reaction Status Date / Time cephalexin monohydrate Allergy Rash/Hives Verified 10/08/22 21:13 [From Keflex] codeine Allergy Rash/Hives Verified 10/08/22 21:13 Physical Exam Vitals: Vital Signs Temp Pulse Resp BP Pulse Ox FiO2 10/09/22 00:18 100 10/09/22 00:10 100 10/09/22 00:09 100 10/08/22 23:32 100 10/08/22 23:11 147 H 26 H 111/49 98 10/08/22 22:57 120 H 97/54 10/08/22 20:55 100.1 F H 138 H 20 113/68 100 Intake and Output 10/08/22 10/08/22 10/09/22 14:59 22:59 06:59 Other: Weight 68.039 kg GENERAL EXAM: Sedated 42-year-old white female who is synchronous mechanical ventilator:. She appears malnourished and jaundiced. HEAD: Normocephalic and atraumatic EYES: Pupils are equal bilaterally, 2 mm, sluggish response to light. NOSE: Clear with pink turbinates. THROAT: No erythema or exudates. NECK: No masses, no JVD. CHEST: No chest wall deformity. LUNGS: Equal air entry with rhonchi throughout. no crackles, wheeze, or focal dullness. Intubated to the mechanical ventilator CVS: S1 and S2 normal with no audible murmur, regular rhythm. No extra heart so unds ABDOMEN: Abdomen is distended with ascites, there is some hepatomegaly, no guarding or rigidity. SPINE: No scoliosis or deformity SKIN: No rashes CENTRAL NERVOUS SYSTEM: Patient is currently sedated on propofol, no focal deficits EXTREMITIES: There is no peripheral edema, clubbing, or cyanosis. Peripheral pulses are intact. Results - Laboratory Findings CBC and BMP: 10/08/22 20:35 10/08/22 20:35 ABG ABG pH 7.39 (7.35-7.45) 10/08/22 22:12 ABG pCO2 31 mmHg (35-45) L 10/08/22 22:12 ABG pO2 72 mmHg (83-108) L 10/08/22 22:12 ABG O2 Saturation 94.6 % (94-97) 10/08/22 22:12 PT/INR, D-dimer PT 37.2 sec (9.0-12.0) H 10/08/22 20:35 INR 3.8 (<1.2) H 10/08/22 20:35 Abnormal lab findings: Abnormal Labs 10/08/22 10/08/22 10/08/22 20:35 20:35 20:35 RBC 2.08 L Hgb 8.9 L Hct 26.7 L MCV 128.8 H RDW 18.2 H Plt Count 67 L Lymphocytes # 0.7 L Macrocytosis Marked A PT 37.2 H INR 3.8 H APTT 41.5 H ABG pCO2 ABG pO2 ABG HCO3 VBG pH VBG pCO2 VBG HCO3 Sodium 132 L Chloride 93 L Carbon Dioxide 21 L Glucose 66 L POC Glucose (mg/dL) Plasma Lactic Acid Paulino Calcium 8.0 L Total Bilirubin 9.7 H AST 853 H ALT 98 H Alkaline Phosphatase 129 H Ammonia Albumin 2.8 L 10/08/22 10/08/22 10/08/22 20:35 20:35 22:12 RBC Hgb Hct MCV RDW Plt Count Lymphocytes # Macrocytosis PT INR APTT ABG pCO2 31 L ABG pO2 72 L ABG HCO3 19 L VBG pH 7.54 H VBG pCO2 23 L VBG HCO3 19 L Sodium Chloride Carbon Dioxide Glucose POC Glucose (mg/dL) Plasma Lactic Acid Paulino 10.4 H* Calcium Total Bilirubin AST ALT Alkaline Phosphatase Ammonia 69 H Albumin 10/08/22 10/09/22 23:13 00:17 RBC Hgb Hct MCV RDW Plt Count Lymphocytes # Macrocytosis PT INR APTT ABG pCO2 ABG pO2 ABG HCO3 VBG pH VBG pCO2 VBG HCO3 Sodium Chloride Carbon Dioxide Glucose POC Glucose (mg/dL) 137 H 111 H Plasma Lactic Acid Paulino Calcium Total Bilirubin AST ALT Alkaline Phosphatase Ammonia Albumin - Diagnostic Findings Chest x-ray: image reviewed CT scan - chest: image reviewed Assessment and Plan Assessment: Pneumonia sepsis, possibly related to aspiration. Patient was fluid resuscitated with 3 L crystalloid fluid, and currently has norepinephrine infusion for hypotension. Acute hypoxemic respiratory failure secondary to above and altered mental status. Status post intubation on the mechanical ventilator Acute metabolic acidosis, partially compensated. Patient has component of lactic acidosis, which was 10.4 on arrival. Acute alcohol withdrawal. Patient's last drink was reportedly on Saturday. Patient's serum alcohol level is less than 10 on arrival to the ER. There is also concern for polysubstance abuse reported by family. Urine toxicology screen is ordered Suspected hepatic encephalopathy. Ammonia level was elevated at 69 Chronic macrocytic anemia. No signs of acute blood loss Chronic thrombocytopenia related to alcoholism Lannec cirrhosis, Patient has a long-standing history of alcohol abuse. Patient's coagulation profile is abnormal. Acute hepatitis panel was ordered. Plan: Patient's medications, labs, CT of the chest abdomen pelvis, and chest x-ray we re reviewed Patient is currently mechanically ventilated on settings of AC, respiratory rate 24, tidal volume 400, FiO2 100%, PEEP of 5 Post intubation chest x-ray shows ET tube 2 cm from the norberto and NG tube coursing below the diaphragm We'll repeat ABGs 30 minutes post intubation Repeat chest x-ray in the morning Propofol for sedation for target RASS 0 to -1 Add bronchodilators Oral care every 4 hours Aspiration precautions Continue the Levophed to maintain a mean arterial pressure of 65 mg of mercury or above Continue lactulose Pending urine toxicology screen Empiric antibiotics with meropenem and vancomycin. Infectious diseases on the case Pancultures are pending Trending Lactic acid level Check d-dimer His repeat CBC and CMP in the morning Check urine Legionella antigen GI prophylaxis with Protonix Pending ultrasound of the gallbladder GI was consulted Continue vitamin B1 supplementation Accu-Cheks every 6 hours DVT prophylaxis with SCDs patient has abnormal coagulopathy Rule out acute hepatitis with hepatitis panel Patient is critically ill, and prognosis is guarded. I have personally seen and examined the patient, performed the documentation and the assessment and plan as written. Number of minutes spent on the visit:20 Time with Patient: Greater than 30
[2022-10-09 02:05] LABS: Appearance,Urine Clear (Clear); Color,Urine Dark Yellow
[2022-10-09 02:06] LABS: Bacteria,Urine Rare /hpf; Bilirubin,Urine 2+ (Negative); Blood,Urine Trace (Negative); Glucose,Urine (UA) Negative (Negative); Hyaline Casts,Urine 10 /lpf (0-2); Ketones,Urine Negative (Negative); Leukocyte Esterase,Urine Negative (Negative); Mucus,Urine Rare /hpf; Nitrite,Urine Negative (Negative); Protein,Urine Trace (Negative); RBC,Urine 1 /hpf (0-5); Squamous Epithelial Cell,Urine 1 /hpf (0-4); WBC,Urine 3 /hpf (0-5)
[2022-10-09 02:11] LABS: Specific Gravity,Urine >1.050 (1.001-1.035)
[2022-10-09 02:55] LABS: Amphetamine Screen,Urine Not Detected (NotDetected); Barbiturate Screen,Urine Not Detected (NotDetected); Benzodiazepines Screen,Urine Detected (NotDetected); Cocaine Screen,Urine Not Detected (NotDetected); Methadone Screen, Urine Not Detected (NotDetected); Opiate Screen,Urine Not Detected (NotDetected); Oxycodone Screen, Urine Not Detected (NotDetected); Phencyclidine Screen,Urine Not Detected (NotDetected); Tricyclic Antidepressant,Urine Not Detected (NotDetected); Urn Cannabinoid Scrn Detected (NotDetected)
[2022-10-09] MEDS ORDERED: SODIUM CHLORIDE 0.9% 1,000 ML IV ONE (02:55)
[2022-10-09] MEDS: IPRATROPIUM-ALBUTEROL 3 ML NEB INHALATION SCH ×6 (03:31→20:47)
[2022-10-09] MEDS: LORazepam 2 MG/ML INJ IV PRN ×2 (03:33→04:34)
[2022-10-09] MEDS: CHLORHEXIDINE GLUCONATE 15 ML CUP MUCOUS MEM SCH ×3 (04:34→20:10)
[2022-10-09] MEDS: LACTULOSE 200 GM/300 ML (FROM 1/2 GAL JUG) RECTAL SCH ×6 (04:34→20:11)
[2022-10-09 05:50] LABS: Glucose,Whole Blood 86 mg/dL (70-110)
[2022-10-09 06:05] LABS: Anisocytosis Slight; Basophils % (A) 0 %; Eosinophils % (A) 0 %; HCT 24.6 % (34.0-46.0); HGB 7.9 gm/dL (11.4-16.0); Hypochromasia Slight; Lymphocytes # (A) 0.5 k/uL (1.0-4.8); Lymphocytes % (A) 8 %; MCH 41.7 pg (25.0-35.0); MCHC 32.1 g/dL (31.0-37.0); Mean Platelet Volume 10.4; Monocytes # (A) 0.3 k/uL (0-1.0); Monocytes % (A) 5 %; Neutrophils # (A) 5.6 k/uL (1.3-7.7); Neutrophils % (A) 86 %; RBC 1.89 m/uL (3.80-5.40); RDW 18.1 % (11.5-15.5); WBC 6.5 k/uL (3.8-10.6)
[2022-10-09 06:06] LABS: ALT 68 U/L (4-34); AST 579 U/L (14-36); African American GFR (CKD) >90 (>60 ml/min/1.73 sqM); Albumin 2.3 g/dL (3.5-5.0); Alkaline Phosphatase 115 U/L (38-126); Anion Gap 14 mmol/L; Blood Urea Nitrogen 12 mg/dL (7-17); Calcium 6.8 mg/dL (8.4-10.2); Carbon Dioxide 17 mmol/L (22-30); Chloride 104 mmol/L (98-107); Glucose 80 mg/dL (74-99); Non-African American GFR(CKD) 80 (>60 ml/min/1.73 sqM); Potassium 4.2 mmol/L (3.5-5.1); Sodium 135 mmol/L (137-145); Total Bilirubin 8.3 mg/dL (0.2-1.3); Total Protein 5.6 g/dL (6.3-8.2)
[2022-10-09 06:06] LABS: ABG Base Excess -5.2 mmol/L; ABG HCO3 20 mmol/L (21-25); ABG PCO2 33 mmHg (35-45); ABG PH 7.38 (7.35-7.45); ABG PO2 101 mmHg (83-108); ABG TCO2 21 mmol/L (19-24); Allen Test Performed? Yes
[2022-10-09 06:08] LABS: Macrocytosis Marked; Platelet Count 53 k/uL (150-450)
[2022-10-09] MEDS ORDERED: PHYTONADIONE 10 MG in SODIUM CHLORIDE 0.9% 50 ML IVPB STA (06:47)
--- NOTE | 2022-10-09 07:58 | XR ---
EXAMINATION TYPE: XR chest 1V portable DATE OF EXAM: 10/09/2022 6:09 AM COMPARISON: Chest radiographs from 10/08/2022 TECHNIQUE: XR chest 1V portable Portable AP radiograph of the chest. CLINICAL INDICATION:Female, 42 years old with history of Tube placement; FINDINGS: Lungs/Pleura: No pleural effusion or pneumothorax. Slightly improved multifocal patchy airspace disea se from prior examination with less dense consolidative appearance involving the left lung. Pulmonary vascularity: Unremarkable. Heart/mediastinum: Cardiomediastinal silhouette is unremarkable. Musculoskeletal: No acute osseous pathology. Other findings: None Lines/Tubes: Endotracheal tube with distal tip 1 cm above the norberto Nasogastric tube with its distal tip and side-port projecting under the diaphragm. IMPRESSION: 1. Slightly improved multifocal airspace disease. 2. Stable support tubes.
[2022-10-09] MEDS ORDERED: PIPERACILLIN-TAZOBACTAM 3.375 GM in SODIUM CHLORIDE 0.9% 100 ML IVPB SCH (08:00)
[2022-10-09] MEDS: MEROPENEM 2 GM in SODIUM CHLORIDE 0.9% 100 ML IVPB SCH ×2 (08:21→16:13)
[2022-10-09] MEDS: RIFAXIMIN 550 MG TABLET PO SCH ×2 (08:21→20:11)
[2022-10-09] MEDS: THIAMINE 100 MG TAB PO SCH (08:26)
[2022-10-09] MEDS ORDERED: PANTOPRAZOLE 40 MG/10 ML VIAL IV SCH (09:00)
[2022-10-09] MEDS: MIDAZOLAM HCL 50 MG in SODIUM CHLORIDE 0.9% 40 ML IV SCH ×2 (09:57→19:03)
[2022-10-09] MEDS: NOREPINEPHRINE 4 MG in SODIUM CHLORIDE 0.9% 250 ML IV SCH ×5 (10:12→19:46)
[2022-10-09] MEDS: VASOPRESSIN 60 UNIT in SODIUM CHLORIDE 0.9% 150 ML IV SCH (10:34)
[2022-10-09] MEDS: VANCOMYCIN 1,250 MG in SODIUM CHLORIDE 0.9% 250 ML IVPB SCH ×2 (10:52→18:14)
[2022-10-09 11:06] LABS: T4, Free (Free Thyroxine) 1.32 ng/dL (0.78-2.19)
[2022-10-09 11:30] LABS: Hepatitis A Antibody IgM Nonreactive (Nonreactive); Hepatitis B Core IgM Nonreactive (Nonreactive); Hepatitis B Surface Antigen Nonreactive (Nonreactive); Hepatitis C IgG Antibody Nonreactive (Nonreactive)
[2022-10-09 11:37] LABS: Glucose,Whole Blood 80 mg/dL (70-110)
--- NOTE | 2022-10-09 12:58 | US ---
EXAMINATION TYPE: US venous doppler duplex LE BI DATE OF EXAM: 10/09/2022 12:46 PM COMPARISON: NONE CLINICAL HISTORY: dvt. ICu patient is intubated with swollen legs and septic, no h/o dvt per family SIDE PERFORMED: Bilateral TECHNIQUE: The lower extremity deep venous system is examined utilizing real time linear array sonog martine with graded compression, doppler sonography and color-flow sonography. VESSELS IMAGED: Common Femoral Vein Deep Femoral Vein Greater Saphenous Vein * Femoral Vein Popliteal Vein Small Saphenous Vein * Proximal Calf Veins (* superficial vessels) Grayscale, color doppler, spectral doppler imaging performed of the deep veins of the lower extremiti es. There is normal flow, compressibility, vascular waveforms. Right Leg: Negative for DVT Left Leg: Negative for DVT IMPRESSION: No evidence for deep venous thrombosis of the bilateral lower extremities.
--- NOTE | 2022-10-09 13:04 | P.CONS ---
History of Present Illness - Reason for Consult Consult date: 10/09/22 Hepatic encephalopathy Requesting physician: Florentino Perez - Chief Complaint Altered mental status changes - History of Present Illness This is a 42-year-old female who is brought in by EMS yesterday for altered mental status changes. History is obtained from the chart and the nurse. Patient has a long-standing history of alcohol abuse and known alcoholic liver disease. She just returned home from vacation over the weekend and her had noticed that she was acting different and much slower. Apparently progressively got worse and she was brought in for further evaluation. Reportedly her last drink was on Saturday. On admission patient was noted to have lactic acid of 10.4. She was admitted to the ICU and subsequently sedated and intubated for airway protection. Nursing stating she is on high dose of propofol and still having difficulty with sedating her. Patient was also positive for benzodiazepine and marijuana. Serum alcohol level less than 10. Patient currently remains sedated and intubated. She's had decreased urine output, has been tachycardic and hypotensive. Elevated ammonia level, patient was started on lactulose per rectum and nursing reported no bowel movements after 2 doses. Currently on meropenem and vancomycin. Admitting labs WBC 7.7 hemoglobin 8.9 hematocrit 26 platelet count 67,000 INR 3.8 sodium 132 potassium 4.0 creatinine 0.9 glucose 66 plasma lactic acid 10.4 total bilirubin 9.7, AST 5053 ALT 28 alkaline phosphatase 129 ammonia 69 Part of patient's workup consisted of a CT abdomen and pelvis with contrast that reported multiple findings including scattered airspace of P cities concerning for infectious/inflammatory process. Airspace opacities in the anterior upper lungs are somewhat wedge-shaped. Consider correlation with d-dimer and setting of pulmonary infarct. Hepatic status is within hepatic likely. Correlate with serum markers for hepatitis. Nondistended large bowel was circumferential garcia spected pseudo-wall thickening with submucosal fat deposition. Alternatively findings could represent component of colitis, hyperemic gastric mucosa correlate for gastritis Ultrasound gallbladder reported fatty infiltrative liver. Gallbladder sludge with mild wall thickening measuring up to 0.4 cm and pericholecystic fluid Review of Systems ROS unobtainable: due to endotracheal tube Past Medical History Past Medical History: GERD/Reflux Additional Past Medical History / Comment(s): Hepatic steatosis, ETOH abuse, gastritis, duodenitis, lower GI bleed, colitis, hemorrhoids, bronchitis, R side nephrolithiasis with surgery, bilateral ovarian cysts, neuropathy bilateral hands/legs and tops of both feet, hypokalemia, hypoalbumenemia, pancytopenia. History of Any Multi-Drug Resistant Organisms: None Reported Past Surgical History: Appendectomy, Orthopedic Surgery Additional Past Surgical History / Comment(s): Left knee surgeries-3 arthroscopic and one open, EGDs, colonoscopies, R sided lithotripsy. Past Anesthesia/Blood Transfusion Reactions: No Reported Reaction Additional Past Anesthesia/Blood Transfusion Reaction / Comm: Pt has received blood in past without reaction. Past Psychological History: Depression Smoking Status: Current every day smoker Past Alcohol Use History: Daily Past Drug Use History: Marijuana - Past Family History Mother Family Medical History: Diabetes Mellitus Additional Family Medical History / Comment(s): Borderline HTN Brother(s) Family Medical History: Diabetes Mellitus Father Family Medical History: Hypertension Additional Family Medical History / Comment(s): BOARDERLINE DM Medications and Allergies Home Medications Medication Instructions Recorded Confirmed Type Acetaminophen Tab [Tylenol] 650 mg PO Q6H PRN 06/18/22 10/08/22 History Loperamide HCl [Imodium A-D] 2 - 4 mg PO BID PRN 06/18/22 10/08/22 History Allergies Allergy/AdvReac Type Severity Reaction Status Date / Time cephalexin monohydrate Allergy Rash/Hives Verified 10/08/22 21:13 [From Keflex] codeine Allergy Rash/Hives Verified 10/08/22 21:13 Physical Exam Vitals: Vital Signs Temp Pulse Pulse Resp BP Pulse Ox FiO2 10/09/22 06:20 134 H 31 H 87/41 93 L 10/09/22 06:10 133 H 27 H 92/35 92 L 10/09/22 06:00 134 H 29 H 94/40 97 85 10/09/22 05:50 137 H 32 H 110/42 97 10/09/22 05:40 142 H 39 H 116/49 96 10/09/22 05:30 140 H 33 H 101/41 97 10/09/22 05:20 137 H 31 H 98/38 98 10/09/22 05:18 75 10/09/22 05:10 135 H 27 H 98/40 97 10/09/22 05:00 135 H 28 H 98/41 98 85 10/09/22 04:50 135 H 27 H 99/41 98 10/09/22 04:40 135 H 32 H 106/41 98 10/09/22 04:30 138 H 30 H 95/42 100 10/09/22 04:20 135 H 28 H 98/40 100 10/09/22 04:10 134 H 25 H 98/37 100 10/09/22 04:00 98.5 F 134 H 138 H 27 H 105/41 98 85 10/09/22 03:50 135 H 28 H 97/39 100 10/09/22 03:45 134 H 10/09/22 03:40 134 H 24 102/39 100 10/09/22 03:31 134 H 10/09/22 03:30 135 H 28 H 110/45 100 85 10/09/22 03:20 134 H 25 H 92/37 98 10/09/22 03:10 133 H 25 H 93/38 98 10/09/22 03:00 134 H 26 H 107/40 98 10/09/22 02:50 135 H 26 H 96/38 100 10/09/22 02:40 133 H 26 H 95/40 98 10/09/22 02:30 134 H 26 H 100/79 99 10/09/22 02:20 135 H 24 119/56 100 10/09/22 02:10 137 H 25 H 86/37 98 10/09/22 02:00 131 H 24 87/34 99 10/09/22 01:50 130 H 24 81/34 99 10/09/22 01:40 130 H 25 H 95/37 99 10/09/22 01:30 133 H 24 110/48 100 10/09/22 01:20 135 H 25 H 89/35 99 10/09/22 01:10 133 H 24 108/47 100 10/09/22 01:00 138 H 25 H 96/40 100 100 10/09/22 00:50 134 H 24 96/40 100 10/09/22 00:40 135 H 24 95/36 100 10/09/22 00:30 137 H 24 129/43 100 10/09/22 00:20 98.3 F 141 H 24 129/43 99 10/09/22 00:18 100 10/09/22 00:10 100 10/08/22 23:32 100 10/08/22 23:11 147 H 26 H 111/49 98 10/08/22 22:57 120 H 97/54 10/08/22 20:55 100.1 F H 138 H 20 113/68 100 Intake and Output 10/08/22 10/08/22 10/09/22 14:59 22:59 06:59 Intake Total 769.545 Output Total 105 Balance 664.545 Intake: Intake, IV Titration 769.545 Amount Norepinephrine 4 mg In 99.805 Sodium Chloride 0.9% 250 ml @ 0.03 MCG/KG/MIN 7. 777 mls/hr IV .Q24H [facility] Rx#:[id number] Sodium Chloride 0.9% 1, 600 000 ml @ 100 mls/hr IV . Q10H [facility] Rx#:[id number] propofoL 1,000 mg In 69.740 Empty Bag 1 bag @ 15 MCG/ KG/MIN 6.124 mls/hr IV . [id number] [facility] Rx#:[id number] Output: Urine 105 Other: Weight 68.039 kg 70 kg General appearance: The patient is sedated and intubated. HET: Head is normocephalic and atraumatic. Neck: Supple. Trachea midline. Heart: S1 S2. Regular rate and rhythm. Lungs: Clear to auscultation. Abdomen: Soft, nondistended. . Skin: No rashes. Jaundice. Extremities: Normal skin color and turgor. No pedal edema. Neurological: Sedated and intubated. Results CBC & Chem 7: 10/09/22 05:32 10/09/22 05:32 Labs: Abnormal Lab Results - Last 24 Hours (Table) 10/08/22 10/08/22 10/08/22 Range/Units 20:35 20:35 20:35 RBC 2.08 L (3.80-5.40) m/uL Hgb 8.9 L (11.4-16.0) gm/dL Hct 26.7 L (34.0-46.0) % MCV 128.8 H (80.0-100.0) fL MCH 42.8 H (25.0-35.0) pg RDW 18.2 H (11.5-15.5) % Plt Count 67 L (150-450) k/uL Lymphocytes # 0.7 L (1.0-4.8) k/uL Macrocytosis Marked A PT 37.2 H (9.0-12.0) sec INR 3.8 H (<1.2) APTT 41.5 H (22.0-30.0) sec ABG pCO2 (35-45) mmHg ABG pO2 (83-108) mmHg ABG HCO3 (21-25) mmol/L ABG O2 Saturation (94-97) % VBG pH (7.31-7.41) VBG pCO2 (37-51) mmHg VBG HCO3 (24-28) mmol/L Sodium 132 L (137-145) mmol/L Chloride 93 L (98-107) mmol/L Carbon Dioxide 21 L (22-30) mmol/L Glucose 66 L (74-99) mg/dL POC Glucose (mg/dL) (70-110) mg/dL Plasma Lactic Acid Paulino (0.7-2.0) mmol/L Calcium 8.0 L (8.4-10.2) mg/dL Total Bilirubin 9.7 H (0.2-1.3) mg/dL AST 853 H (14-36) U/L ALT 98 H (4-34) U/L Alkaline Phosphatase 129 H (38-126) U/L Ammonia (<30) umol/L Total Protein (6.3-8.2) g/dL Albumin 2.8 L (3.5-5.0) g/dL Ur Specific [place] (1.001-1.035) Urine Protein (Negative) Urine Blood (Negative) Urine Bilirubin (Negative) Urine Bacteria (None) /hpf Hyaline Casts (0-2) /lpf Urine Mucus (None) /hpf U Benzodiazepines Scrn (NotDetected) U Marijuana (THC) Screen (NotDetected) 10/08/22 10/08/22 10/08/22 Range/Units 20:35 20:35 22:12 RBC (3.80-5.40) m/uL Hgb (11.4-16.0) gm/dL Hct (34.0-46.0) % MCV (80.0-100.0) fL MCH (25.0-35.0) pg RDW (11.5-15.5) % Plt Count (150-450) k/uL Lymphocytes # (1.0-4.8) k/uL Macrocytosis PT (9.0-12.0) sec INR (<1.2) APTT (22.0-30.0) sec ABG pCO2 31 L (35-45) mmHg ABG pO2 72 L (83-108) mmHg ABG HCO3 19 L (21-25) mmol/L ABG O2 Saturation (94-97) % VBG pH 7.54 H (7.31-7.41) VBG pCO2 23 L (37-51) mmHg VBG HCO3 19 L (24-28) mmol/L Sodium (137-145) mmol/L Chloride (98-107) mmol/L Carbon Dioxide (22-30) mmol/L Glucose (74-99) mg/dL POC Glucose (mg/dL) (70-110) mg/dL Plasma Lactic Acid Paulino 10.4 H* (0.7-2.0) mmol/L Calcium (8.4-10.2) mg/dL Total Bilirubin (0.2-1.3) mg/dL AST (14-36) U/L ALT (4-34) U/L Alkaline Phosphatase (38-126) U/L Ammonia 69 H (<30) umol/L Total Protein (6.3-8.2) g/dL Albumin (3.5-5.0) g/dL Ur Specific [place] (1.001-1.035) Urine Protein (Negative) Urine Blood (Negative) Urine Bilirubin (Negative) Urine Bacteria (None) /hpf Hyaline Casts (0-2) /lpf Urine Mucus (None) /hpf U Benzodiazepines Scrn (NotDetected) U Marijuana (THC) Screen (NotDetected) 10/08/22 10/09/22 10/09/22 Range/Units 23:13 00:17 00:31 RBC (3.80-5.40) m/uL Hgb (11.4-16.0) gm/dL Hct (34.0-46.0) % MCV (80.0-100.0) fL MCH (25.0-35.0) pg RDW (11.5-15.5) % Plt Count (150-450) k/uL Lymphocytes # (1.0-4.8) k/uL Macrocytosis PT (9.0-12.0) sec INR (<1.2) APTT (22.0-30.0) sec ABG pCO2 (35-45) mmHg ABG pO2 (83-108) mmHg ABG HCO3 (21-25) mmol/L ABG O2 Saturation (94-97) % VBG pH (7.31-7.41) VBG pCO2 (37-51) mmHg VBG HCO3 (24-28) mmol/L Sodium (137-145) mmol/L Chloride (98-107) mmol/L Carbon Dioxide (22-30) mmol/L Glucose (74-99) mg/dL POC Glucose (mg/dL) 137 H 111 H (70-110) mg/dL Plasma Lactic Acid Paulino 11.7 H* (0.7-2.0) mmol/L Calcium (8.4-10.2) mg/dL Total Bilirubin (0.2-1.3) mg/dL AST (14-36) U/L ALT (4-34) U/L Alkaline Phosphatase (38-126) U/L Ammonia (<30) umol/L Total Protein (6.3-8.2) g/dL Albumin (3.5-5.0) g/dL Ur Specific [place] (1.001-1.035) Urine Protein (Negative) Urine Blood (Negative) Urine Bilirubin (Negative) Urine Bacteria (None) /hpf Hyaline Casts (0-2) /lpf Urine Mucus (None) /hpf U Benzodiazepines Scrn (NotDetected) U Marijuana (THC) Screen (NotDetected) 10/09/22 10/09/22 10/09/22 Range/Units 00:33 01:00 05:32 RBC 1.89 L (3.80-5.40) m/uL Hgb 7.9 L (11.4-16.0) gm/dL Hct 24.6 L (34.0-46.0) % MCV 130.0 H (80.0-100.0) fL MCH 41.7 H (25.0-35.0) pg RDW 18.1 H (11.5-15.5) % Plt Count 53 L (150-450) k/uL Lymphocytes # 0.5 L (1.0-4.8) k/uL Macrocytosis Marked A PT (9.0-12.0) sec INR (<1.2) APTT (22.0-30.0) sec ABG pCO2 (35-45) mmHg ABG pO2 (83-108) mmHg ABG HCO3 19 L (21-25) mmol/L ABG O2 Saturation 98.2 H (94-97) % VBG pH (7.31-7.41) VBG pCO2 (37-51) mmHg VBG HCO3 (24-28) mmol/L Sodium (137-145) mmol/L Chloride (98-107) mmol/L Carbon Dioxide (22-30) mmol/L Glucose (74-99) mg/dL POC Glucose (mg/dL) (70-110) mg/dL Plasma Lactic Acid Paulino (0.7-2.0) mmol/L Calcium (8.4-10.2) mg/dL Total Bilirubin (0.2-1.3) mg/dL AST (14-36) U/L ALT (4-34) U/L Alkaline Phosphatase (38-126) U/L Ammonia (<30) umol/L Total Protein (6.3-8.2) g/dL Albumin (3.5-5.0) g/dL Ur Specific [place] >1.050 H (1.001-1.035) Urine Protein Trace H (Negative) Urine Blood Trace H (Negative) Urine Bilirubin 2+ H (Negative) Urine Bacteria Rare H (None) /hpf Hyaline Casts 10 H (0-2) /lpf Urine Mucus Rare H (None) /hpf U Benzodiazepines Scrn Detected H (NotDetected) U Marijuana (THC) Screen Detected H (NotDetected) 10/09/22 10/09/22 10/09/22 Range/Units 05:32 05:32 06:00 RBC (3.80-5.40) m/uL Hgb (11.4-16.0) gm/dL Hct (34.0-46.0) % MCV (80.0-100.0) fL MCH (25.0-35.0) pg RDW (11.5-15.5) % Plt Count (150-450) k/uL Lymphocytes # (1.0-4.8) k/uL Macrocytosis PT (9.0-12.0) sec INR (<1.2) APTT (22.0-30.0) sec ABG pCO2 33 L (35-45) mmHg ABG pO2 (83-108) mmHg ABG HCO3 20 L (21-25) mmol/L ABG O2 Saturation 98.0 H (94-97) % VBG pH (7.31-7.41) VBG pCO2 (37-51) mmHg VBG HCO3 (24-28) mmol/L Sodium 135 L (137-145) mmol/L Chloride (98-107) mmol/L Carbon Dioxide 17 L (22-30) mmol/L Glucose (74-99) mg/dL POC Glucose (mg/dL) (70-110) mg/dL Plasma Lactic Acid Paulino 6.5 H* (0.7-2.0) mmol/L Calcium 6.8 L (8.4-10.2) mg/dL Total Bilirubin 8.3 H (0.2-1.3) mg/dL AST 579 H (14-36) U/L ALT 68 H (4-34) U/L Alkaline Phosphatase (38-126) U/L Ammonia (<30) umol/L Total Protein 5.6 L (6.3-8.2) g/dL Albumin 2.3 L (3.5-5.0) g/dL Ur Specific [place] (1.001-1.035) Urine Protein (Negative) Urine Blood (Negative) Urine Bilirubin (Negative) Urine Bacteria (None) /hpf Hyaline Casts (0-2) /lpf Urine Mucus (None) /hpf U Benzodiazepines Scrn (NotDetected) U Marijuana (THC) Screen (NotDetected) Assessment and Plan (1) Hepatic encephalopathy Narrative/Plan: 42-year-old female with a normal history of alcohol abuse and alcoholic liver disease who presented to the emergency department with altered mental status changes. Patient had elevated ammonia level at 69, hypercoagulable with anemia and thrombocytopenia consistent with underlying liver disease. Patient continues to drink last drink was Saturday, some component also likely related to withdrawal symptoms. Continue current ICU management, will add Xifaxan, continue with lactulose and titrate to have 3-4 bowel movements daily. Current Visit: Yes Status: Acute Code(s): K76.82 - HEPATIC ENCEPHALOPATHY SNOMED Code(s): 29861729 (2) Alcoholic liver disease Current Visit: Yes Status: Acute Code(s): K70.9 - ALCOHOLIC LIVER DISEASE, UNSPECIFIED SNOMED Code(s): 69029402 (3) Lactic acidosis Current Visit: Yes Status: Acute Code(s): E87.2 - ACIDOSIS * DO NOT USE * SNOMED Code(s): 58249566 (4) ETOH abuse Current Visit: No Status: Acute Code(s): F10.10 - ALCOHOL ABUSE, UNCOMPLICATED SNOMED Code(s): 50135988 (5) Hypercoagulopathy Current Visit: Yes Status: Acute Code(s): D68.59 - OTHER PRIMARY THROMBOPHILIA SNOMED Code(s): 83566378 (6) Thrombocytopenia Current Visit: Yes Status: Acute Code(s): D69.6 - THROMBOCYTOPENIA, UNSPECIFIED SNOMED Code(s): 166873255 Plan: 1. Continue symptomatic and supportive care 2. Continue ICU management 3. Continue lactulose as ordered, titrate to 3-4 bowel movements daily 4. Will add Xifaxin 550 mg twice a day 5. Daily CBC, INR, CMP 6. Continue empiric antibiotics 7. Protonix 40 mg IV daily for GI prophylaxis 8. CIWA recall, monitor for withdrawal symptoms Thank you for this consultation, we will continue to follow Dr. Kaiden Brandon I agree with the dictator's note, documented as a scribe by Camilla Clay.
[2022-10-09 13:11] LABS: INR 3.6 (<1.2); Prothrombin Time 35.5 sec (9.0-12.0)
--- NOTE | 2022-10-09 15:20 | OP ---
OPERATIVE REPORT DATE OF SERVICE : PROCEDURE PERFORMED: Placement of a right brachial arterial line. PREOPERATIVE DIAGNOSES: Sepsis and septic shock. POSTOPERATIVE DIAGNOSES: Sepsis and septic shock. ANESTHESIA USED: None deployed. DESCRIPTION OF PROCEDURE: The patient was placed in the supine position, and the right brachial region was prepared in a sterile fashion, and drapes were applied. The right brachial artery was palpated, easily cannulated, and a guidewire was placed. A Cook catheter was inserted over the guidewire, and the guidewire was removed. Good blood flow, good waveform, no complications. Line was secured using 3-0 silk sutures. MMODL / IJN: [id number] /
[2022-10-09 16:01] LABS: Bilirubin, Conjugated 3.4 mg/dL (0.0-0.3); Bilirubin, Delta 2.2 mg/dL (0.0-0.2); Bilirubin,Unconjugated 1.5 mg/dL (0.0-1.1); Total Bilirubin 7.1 mg/dL (0.2-1.3)
[2022-10-09] MEDS: 0.9% NACL WITH KCL 20 MEQ/L 1,000 ML IV SCH (16:36)
[2022-10-09 17:58] LABS: Glucose,Whole Blood 59 mg/dL (70-110)
[2022-10-09 18:42] LABS: Glucose,Whole Blood 149 mg/dL (70-110)
--- NOTE | 2022-10-09 19:47 | HP ---
HISTORY AND PHYSICAL CHIEF COMPLAINT: Change in mental status. HISTORY OF PRESENT ILLNESS: This is a 42-year-old woman with a past medical history of multiple medical problems including alcohol abuse, alcoholic liver disease, was having some change in mental status. Subsequently, the patient was noted to have some coughing and the last drink was on Saturday. The patient was taken to [facility], was found to have bilateral pneumonia and the patient was admitted for further evaluation and treatment. Aspiration was suspected. The patient was monitored closely, intubated and ventilated at this time. There is no history of any fever, rigors, or chills. PAST MEDICAL HISTORY: Reviewed include alcoholic liver disease, alcoholism. Rest of the history and rest of the chart is reviewed. HOME MEDICATIONS: Imodium. The rest of the medications reviewed. ALLERGIES: Codeine. Rest of the allergies reviewed. FAMILY HISTORY: Could not be taken. SOCIAL HISTORY: Could not be taken. REVIEW OF SYSTEMS: Could not be taken. PHYSICAL EXAMINATION: VITAL SIGNS: Pulse is 135, blood pressure 105/35, respirations 24. Vent settings are noted. HEENT: Conjunctivae normal. NECK: No jugular venous distention. CARDIOVASCULAR: S1, S2 muffled. RESPIRATIONS: Bilateral scattered rhonchi and crackles. ABDOMEN: Soft, nontender. LEGS: No edema. NERVOUS SYSTEM: The patient is sedated. SKIN: No ulcer, rash, bleeding. JOINTS: No active deforming arthropathy. LABORATORY DATA: Noted, reviewed. Lactic acid is still elevated at 7.8. ASSESSMENT: 1. Bilateral pneumonia, possibly aspiration with sepsis present on admission. 2. Acute hypoxic respiratory failure, on mechanical ventilation. 3. Anemia and thrombocytopenia secondary to alcohol. 4. Alcohol withdrawal syndrome and alcoholic hepatitis. 5. Multiple medical issues. RECOMMENDATIONS AND DISCUSSION: This is a 42-year-old woman who presented with multiple complex medical issues. At this time, I would recommend continue with current medications. Continue with broad- spectrum antibiotics. Obtain cultures. Follow liver functions closely. The patient also is coagulopathic. Going to monitor PT/INR closely and vitamin K as well. Once again, the prognosis is extremely guarded because of multiple complex medical issues and further recommendations to follow. MMODL / IJN: [id number] /
[2022-10-09] MEDS: PANTOPRAZOLE 40 MG/10 ML VIAL IV SCH (20:10)
[2022-10-09 21:18] LABS: Glucose,Whole Blood 118 mg/dL (70-110)
--- NOTE | 2022-10-09 21:25 | P.CONS ---
History of Present Illness - Reason for Consult Consult date: 10/09/22 Septic shock Requesting physician: Florentino Perez - Chief Complaint Unresponsive and weakness x 1 day - History of Present Illness Patient is a 42-year-old female with a past medical history significant for GERD reflux diabetic steatosis alcohol abuse presenting to the ER for evaluation of mental status changes apparently started the day before presentation to the hospital according to the significant other they were just returning from a trip to [place] and on the way back on Saturday the patient was not feeling that good and the next day he noticed the patient to be coming unresponsive and weak patient was brought into the ER on arrival to the ER the patient did have a low-grade fever 100.1 F the patient was tachycardic hypotensive patient unable get intubated and was admitted to the ICU patient did have normal white count did have elevated lactic acid levels are elevated kidney function was normal urine has been negative drug screen was positive for benzo and marijuana influenza RSV COVID and hepatitis panel was negative patient did have a CT of the brain that was negative for any bleed did have a chest x-ray airspace opacity throughout the lungs gallbladder ultrasound gallbladder sludge with mild wall thickening migrating up to 0.4 cm and pericholecystic fluid patient has been started on broad-spectrum antibiotic from vancomycin and m eropenem infectious disease was consulted for further management of antibiotic therapy most information has been obtained from review the chart talking to the family and the nursing staff and the patient is currently intubated on the vent and unable to provide any history no significant purulent secretions through the ET vomiting or diarrhea has been reported Review of Systems Positive points has been mentioned in HPI complete review could not be obtained because of his underlying mental status Past Medical History Past Medical History: GERD/Reflux Additional Past Medical History / Comment(s): Hepatic steatosis, ETOH abuse, gastritis, duodenitis, lower GI bleed, colitis, hemorrhoids, bronchitis, R side nephrolithiasis with surgery, bilateral ovarian cysts, neuropathy bilateral hands/legs and tops of both feet, hypokalemia, hypoalbumenemia, pancytopenia. History of Any Multi-Drug Resistant Organisms: None Reported Past Surgical History: Appendectomy, Orthopedic Surgery Additional Past Surgical History / Comment(s): Left knee surgeries-3 arthroscopic and one open, EGDs, colonoscopies, R sided lithotripsy. Past Anesthesia/Blood Transfusion Reactions: No Reported Reaction Additional Past Anesthesia/Blood Transfusion Reaction / Comm: Pt has received blood in past without reaction. Past Psychological History: Depression Smoking Status: Current every day smoker Past Alcohol Use History: Daily Past Drug Use History: Marijuana - Past Family History Mother Family Medical History: Diabetes Mellitus Additional Family Medical History / Comment(s): Borderline HTN Brother(s) Family Medical History: Diabetes Mellitus Father Family Medical History: Hypertension Additional Family Medical History / Comment(s): BOARDERLINE DM Medications and Allergies Home Medications Medication Instructions Recorded Confirmed Type Acetaminophen Tab [Tylenol] 650 mg PO Q6H PRN 06/18/22 10/08/22 History Loperamide HCl [Imodium A-D] 2 - 4 mg PO BID PRN 06/18/22 10/08/22 History Allergies Allergy/AdvReac Type Severity Reaction Status Date / Time cephalexin monohydrate Allergy Rash/Hives Verified 10/08/22 21:13 [From Keflex] codeine Allergy Rash/Hives Verified 10/08/22 21:13 Physical Exam Vitals: Vital Signs Temp Pulse Pulse Resp BP Pulse Ox FiO2 10/09/22 12:00 55 10/09/22 11:50 122 H 24 10/09/22 11:41 55 10/09/22 11:40 122 H 24 10/09/22 11:34 55 10/09/22 11:30 135 H 24 93 L 10/09/22 11:15 135 H 24 92 L 10/09/22 11:00 134 H 24 93 L 10/09/22 10:45 137 H 28 H 96 10/09/22 10:30 135 H 29 H 96 10/09/22 10:15 135 H 28 H 97 10/09/22 10:00 134 H 29 H 98 10/09/22 09:45 131 H 30 H 94 L 10/09/22 09:30 134 H 28 H 88/34 95 10/09/22 09:15 137 H 34 H 86/32 94 L 10/09/22 09:13 133 H 24 10/09/22 09:03 135 H 24 10/09/22 09:00 135 H 31 H 93/32 96 10/09/22 08:57 70 10/09/22 08:45 137 H 25 H 105/41 92 L 10/09/22 08:30 140 H 33 H 104/45 94 L 10/09/22 08:15 138 H 34 H 109/47 94 L 10/09/22 08:00 98.9 F 140 H 38 H 116/45 94 L 84 10/09/22 07:45 140 H 38 H 112/44 93 L 10/09/22 07:30 137 H 33 H 107/44 93 L 10/09/22 07:15 140 H 38 H 111/43 94 L 10/09/22 07:00 138 H 32 H 108/51 94 L 85 10/09/22 06:50 140 H 32 H 112/47 94 L 10/09/22 06:40 141 H 33 H 100/42 96 10/09/22 06:30 137 H 33 H 90/37 95 85 10/09/22 06:20 134 H 31 H 87/41 93 L 10/09/22 06:10 133 H 27 H 92/35 92 L 10/09/22 06:00 134 H 29 H 94/40 97 85 10/09/22 05:50 137 H 32 H 110/42 97 10/09/22 05:40 142 H 39 H 116/49 96 10/09/22 05:30 140 H 33 H 101/41 97 10/09/22 05:20 137 H 31 H 98/38 98 10/09/22 05:18 75 10/09/22 05:10 135 H 27 H 98/40 97 10/09/22 05:00 135 H 28 H 98/41 98 85 10/09/22 04:50 135 H 27 H 99/41 98 10/09/22 04:40 135 H 32 H 106/41 98 10/09/22 04:30 138 H 30 H 95/42 100 10/09/22 04:20 135 H 28 H 98/40 100 10/09/22 04:10 134 H 25 H 98/37 100 10/09/22 04:00 98.5 F 134 H 138 H 27 H 105/41 98 85 10/09/22 03:50 135 H 28 H 97/39 100 10/09/22 03:45 134 H 10/09/22 03:40 134 H 24 102/39 100 10/09/22 03:31 134 H 10/09/22 03:30 135 H 28 H 110/45 100 85 10/09/22 03:20 134 H 25 H 92/37 98 0404/23 03:10 133 H 25 H 93/38 98 10/09/22 03:00 134 H 26 H 107/40 98 10/09/22 02:50 135 H 26 H 96/38 100 10/09/22 02:40 133 H 26 H 95/40 98 10/09/22 02:30 134 H 26 H 100/79 99 10/09/22 02:20 135 H 24 119/56 100 10/09/22 02:10 137 H 25 H 86/37 98 10/09/22 02:00 131 H 24 87/34 99 10/09/22 01:50 130 H 24 81/34 99 10/09/22 01:40 130 H 25 H 95/37 99 10/09/22 01:30 133 H 24 110/48 100 10/09/22 01:20 135 H 25 H 89/35 99 10/09/22 01:10 133 H 24 108/47 100 10/09/22 01:00 138 H 25 H 96/40 100 100 10/09/22 00:50 134 H 24 96/40 100 10/09/22 00:40 135 H 24 95/36 100 10/09/22 00:30 137 H 24 129/43 100 10/09/22 00:20 98.3 F 141 H 24 129/43 99 10/09/22 00:10 100 10/08/22 23:32 100 10/08/22 23:11 147 H 26 H 111/49 98 10/08/22 22:57 120 H 97/54 10/08/22 20:55 100.1 F H 138 H 20 113/68 100 Intake and Output 10/08/22 10/09/22 10/09/22 22:59 06:59 14:59 Intake Total 878.730 771.754 Output Total 230 35 Balance 648.730 736.754 Intake: IV 450 Meropenem 2 gm In Sodium 100 Chloride 0.9% 100 ml @ 33 .3 mls/hr IVPB Q8H [facility] Rx #:[id number] Phytonadione 10 mg In 50 Sodium Chloride 0.9% 50 ml @ 100 mls/hr IVPB ONCE STA Rx#:[id number] Sodium Chloride 0.9% 1, 300 000 ml @ 100 mls/hr IV . Q10H [facility] Rx#:[id number] Intake, IV Titration 878.730 301.754 Amount Norepinephrine 4 mg In 99.805 154.195 Sodium Chloride 0.9% 250 ml @ 0.03 MCG/KG/MIN 7. 777 mls/hr IV .Q24H [facility] Rx#:[id number] Sodium Chloride 0.9% 1, 700 000 ml @ 100 mls/hr IV . Q10H [facility] Rx#:[id number] propofoL 1,000 mg In 78.925 147.559 Empty Bag 1 bag @ 15 MCG/ KG/MIN 6.124 mls/hr IV . [id number] [facility] Rx#:[id number] Other 20 Output: Gastric Drainage 100 Urine 130 35 Other: Voiding Method Indwelling Catheter Weight 68.039 kg 70 kg ABP, PAP, CO, CI - Last 8 Hours Arterial Blood Pressure 105/34 Arterial Blood Pressure 103/34 Arterial Blood Pressure 101/34 Arterial Blood Pressure 95/33 Arterial Blood Pressure 92/33 Arterial Blood Pressure 97/34 Arterial Blood Pressure 88/31 Arterial Blood Pressure 91/28 GENERAL DESCRIPTION: Middle-aged male intubated on the vent HEENT: Shows Pallor , positive scleral icterus. Oral mucous membrane is dry. NECK: Trachea central, no thyromegaly. LUNGS: Unlabored breathing. Decreased basilar the base HEART: S1, S2, regular rate and rhythm. No loud murmur ABDOMEN: Soft, mildly distention EXTREMITIES: No edema of feet. SKIN: No rash, no masses palpable. NEUROLOGICAL: The patient is sedated on the vent Results CBC & Chem 7: 10/19/22 12:07 10/19/22 05:20 Labs: Abnormal Lab Results - Last 24 Hours (Table) 10/08/22 10/08/22 10/08/22 Range/Units 20:35 20:35 20:35 RBC 2.08 L (3.80-5.40) m/uL Hgb 8.9 L (11.4-16.0) gm/dL Hct 26.7 L (34.0-46.0) % MCV 128.8 H (80.0-100.0) fL MCH 42.8 H (25.0-35.0) pg RDW 18.2 H (11.5-15.5) % Plt Count 67 L (150-450) k/uL Lymphocytes # 0.7 L (1.0-4.8) k/uL Macrocytosis Marked A PT 37.2 H (9.0-12.0) sec INR 3.8 H (<1.2) APTT 41.5 H (22.0-30.0) sec D-Dimer (<0.60) mg/L FEU ABG pCO2 (35-45) mmHg ABG pO2 (83-108) mmHg ABG HCO3 (21-25) mmol/L ABG O2 Saturation (94-97) % VBG pH (7.31-7.41) VBG pCO2 (37-51) mmHg VBG HCO3 (24-28) mmol/L Sodium 132 L (137-145) mmol/L Chloride 93 L (98-107) mmol/L Carbon Dioxide 21 L (22-30) mmol/L Glucose 66 L (74-99) mg/dL POC Glucose (mg/dL) (70-110) mg/dL Plasma Lactic Acid [place] (0.7-2.0) mmol/L Calcium 8.0 L (8.4-10.2) mg/dL Total Bilirubin 9.7 H (0.2-1.3) mg/dL AST 853 H (14-36) U/L ALT 98 H (4-34) U/L Alkaline Phosphatase 129 H (38-126) U/L Ammonia (<30) umol/L Total Protein (6.3-8.2) g/dL Albumin 2.8 L (3.5-5.0) g/dL TSH (0.465-4.680) mIU/L Ur Specific [place] (1.001-1.035) Urine Protein (Negative) Urine Blood (Negative) Urine Bilirubin (Negative) Urine Bacteria (None) /hpf Hyaline Casts (0-2) /lpf Urine Mucus (None) /hpf U Benzodiazepines Scrn (NotDetected) U Marijuana (THC) Screen (NotDetected) 10/08/22 10/08/22 10/08/22 Range/Units 20:35 20:35 22:12 RBC (3.80-5.40) m/uL Hgb (11.4-16.0) gm/dL Hct (34.0-46.0) % MCV (80.0-100.0) fL MCH (25.0-35.0) pg RDW (11.5-15.5) % Plt Count (150-450) k/uL Lymphocytes # (1.0-4.8) k/uL Macrocytosis PT (9.0-12.0) sec INR (<1.2) APTT (22.0-30.0) sec D-Dimer (<0.60) mg/L FEU ABG pCO2 31 L (35-45) mmHg ABG pO2 72 L (83-108) mmHg ABG HCO3 19 L (21-25) mmol/L ABG O2 Saturation (94-97) % VBG pH 7.54 H (7.31-7.41) VBG pCO2 23 L (37-51) mmHg VBG HCO3 19 L (24-28) mmol/L Sodium (137-145) mmol/L Chloride (98-107) mmol/L Carbon Dioxide (22-30) mmol/L Glucose (74-99) mg/dL POC Glucose (mg/dL) (70-110) mg/dL Plasma Lactic Acid Paulino 10.4 H* (0.7-2.0) mmol/L Calcium (8.4-10.2) mg/dL Total Bilirubin (0.2-1.3) mg/dL AST (14-36) U/L ALT (4-34) U/L Alkaline Phosphatase (38-126) U/L Ammonia 69 H (<30) umol/L Total Protein (6.3-8.2) g/dL Albumin (3.5-5.0) g/dL TSH (0.465-4.680) mIU/L Ur Specific [place] (1.001-1.035) Urine Protein (Negative) Urine Blood (Negative) Urine Bilirubin (Negative) Urine Bacteria (None) /hpf Hyaline Casts (0-2) /lpf Urine Mucus (None) /hpf U Benzodiazepines Scrn (NotDetected) U Marijuana (THC) Screen (NotDetected) 10/08/22 10/09/22 10/09/22 Range/Units 23:13 00:17 00:31 RBC (3.80-5.40) m/uL Hgb (11.4-16.0) gm/dL Hct (34.0-46.0) % MCV (80.0-100.0) fL MCH (25.0-35.0) pg RDW (11.5-15.5) % Plt Count (150-450) k/uL Lymphocytes # (1.0-4.8) k/uL Macrocytosis PT (9.0-12.0) sec INR (<1.2) APTT (22.0-30.0) sec D-Dimer (<0.60) mg/L FEU ABG pCO2 (35-45) mmHg ABG pO2 (83-108) mmHg ABG HCO3 (21-25) mmol/L ABG O2 Saturation (94-97) % VBG pH (7.31-7.41) VBG pCO2 (37-51) mmHg VBG HCO3 (24-28) mmol/L Sodium (137-145) mmol/L Chloride (98-107) mmol/L Carbon Dioxide (22-30) mmol/L Glucose (74-99) mg/dL POC Glucose (mg/dL) 137 H 111 H (70-110) mg/dL Plasma Lactic Acid Paulino 11.7 H* (0.7-2.0) mmol/L Calcium (8.4-10.2) mg/dL Total Bilirubin (0.2-1.3) mg/dL AST (14-36) U/L ALT (4-34) U/L Alkaline Phosphatase (38-126) U/L Ammonia (<30) umol/L Total Protein (6.3-8.2) g/dL Albumin (3.5-5.0) g/dL TSH (0.465-4.680) mIU/L Ur Specific [place] (1.001-1.035) Urine Protein (Negative) Urine Blood (Negative) Urine Bilirubin (Negative) Urine Bacteria (None) /hpf Hyaline Casts (0-2) /lpf Urine Mucus (None) /hpf U Benzodiazepines Scrn (NotDetected) U Marijuana (THC) Screen (NotDetected) 10/09/22 10/09/22 10/09/22 Range/Units 00:33 01:00 05:32 RBC 1.89 L (3.80-5.40) m/uL Hgb 7.9 L (11.4-16.0) gm/dL Hct 24.6 L (34.0-46.0) % MCV 130.0 H (80.0-100.0) fL MCH 41.7 H (25.0-35.0) pg RDW 18.1 H (11.5-15.5) % Plt Count 53 L (150-450) k/uL Lymphocytes # 0.5 L (1.0-4.8) k/uL Macrocytosis Marked A PT (9.0-12.0) sec INR (<1.2) APTT (22.0-30.0) sec D-Dimer (<0.60) mg/L FEU ABG pCO2 (35-45) mmHg ABG pO2 (83-108) mmHg ABG HCO3 19 L (21-25) mmol/L ABG O2 Saturation 98.2 H (94-97) % VBG pH (7.31-7.41) VBG pCO2 (37-51) mmHg VBG HCO3 (24-28) mmol/L Sodium (137-145) mmol/L Chloride (98-107) mmol/L Carbon Dioxide (22-30) mmol/L Glucose (74-99) mg/dL POC Glucose (mg/dL) (70-110) mg/dL Plasma Lactic Acid Paul[place] (0.7-2.0) mmol/L Calcium (8.4-10.2) mg/dL Total Bilirubin (0.2-1.3) mg/dL AST (14-36) U/L ALT (4-34) U/L Alkaline Phosphatase (38-126) U/L Ammonia (<30) umol/L Total Protein (6.3-8.2) g/dL Albumin (3.5-5.0) g/dL TSH (0.465-4.680) mIU/L Ur Specific [place] >1.050 H (1.001-1.035) Urine Protein Trace H (Negative) Urine Blood Trace H (Negative) Urine Bilirubin 2+ H (Negative) Urine Bacteria Rare H (None) /hpf Hyaline Casts 10 H (0-2) /lpf Urine Mucus Rare H (None) /hpf U Benzodiazepines Scrn Detected H (NotDetected) U Marijuana (THC) Screen Detected H (NotDetected) 04/04/23 04/04/23 04/04/23 Range/Units 05:32 05:32 06:00 RBC (3.80-5.40) m/uL Hgb (11.4-16.0) gm/dL Hct (34.0-46.0) % MCV (80.0-100.0) fL MCH (25.0-35.0) pg RDW (11.5-15.5) % Plt Count (150-450) k/uL Lymphocytes # (1.0-4.8) k/uL Macrocytosis PT (9.0-12.0) sec INR (<1.2) APTT (22.0-30.0) sec D-Dimer (<0.60) mg/L FEU ABG pCO2 33 L (35-45) mmHg ABG pO2 (83-108) mmHg ABG HCO3 20 L (21-25) mmol/L ABG O2 Saturation 98.0 H (94-97) % VBG pH (7.31-7.41) VBG pCO2 (37-51) mmHg VBG HCO3 (24-28) mmol/L Sodium 135 L (137-145) mmol/L Chloride (98-107) mmol/L Carbon Dioxide 17 L (22-30) mmol/L Glucose (74-99) mg/dL POC Glucose (mg/dL) (70-110) mg/dL Plasma Lactic Acid Paulino 6.5 H* (0.7-2.0) mmol/L Calcium 6.8 L (8.4-10.2) mg/dL Total Bilirubin 8.3 H (0.2-1.3) mg/dL AST 579 H (14-36) U/L ALT 68 H (4-34) U/L Alkaline Phosphatase (38-126) U/L Ammonia (<30) umol/L Total Protein 5.6 L (6.3-8.2) g/dL Albumin 2.3 L (3.5-5.0) g/dL TSH (0.465-4.680) mIU/L Ur Specific [place] (1.001-1.035) Urine Protein (Negative) Urine Blood (Negative) Urine Bilirubin (Negative) Urine Bacteria (None) /hpf Hyaline Casts (0-2) /lpf Urine Mucus (None) /hpf U Benzodiazepines Scrn (NotDetected) U Marijuana (THC) Screen (NotDetected) 10/09/22 10/09/22 10/09/22 Range/Units 07:18 07:18 09:20 RBC (3.80-5.40) m/uL Hgb (11.4-16.0) gm/dL Hct (34.0-46.0) % MCV (80.0-100.0) fL MCH (25.0-35.0) pg RDW (11.5-15.5) % Plt Count (150-450) k/uL Lymphocytes # (1.0-4.8) k/uL Macrocytosis PT (9.0-12.0) sec INR (<1.2) APTT (22.0-30.0) sec D-Dimer 2.32 H (<0.60) mg/L FEU ABG pCO2 (35-45) mmHg ABG pO2 (83-108) mmHg ABG HCO3 (21-25) mmol/L ABG O2 Saturation (94-97) % VBG pH (7.31-7.41) VBG pCO2 (37-51) mmHg VBG HCO3 (24-28) mmol/L Sodium (137-145) mmol/L Chloride (98-107) mmol/L Carbon Dioxide (22-30) mmol/L Glucose (74-99) mg/dL POC Glucose (mg/dL) (70-110) mg/dL Plasma Lactic Acid Paul[place] 7.8 H* (0.7-2.0) mmol/L Calcium (8.4-10.2) mg/dL Total Bilirubin (0.2-1.3) mg/dL AST (14-36) U/L ALT (4-34) U/L Alkaline Phosphatase (38-126) U/L Ammonia 97 H (<30) umol/L Total Protein (6.3-8.2) g/dL Albumin (3.5-5.0) g/dL TSH (0.465-4.680) mIU/L Ur Specific [place] (1.001-1.035) Urine Protein (Negative) Urine Blood (Negative) Urine Bilirubin (Negative) Urine Bacteria (None) /hpf Hyaline Casts (0-2) /lpf Urine Mucus (None) /hpf U Benzodiazepines Scrn (NotDetected) U Marijuana (THC) Screen (NotDetected) 10/09/22 Range/Units 09:20 RBC (3.80-5.40) m/uL Hgb (11.4-16.0) gm/dL Hct (34.0-46.0) % MCV (80.0-100.0) fL MCH (25.0-35.0) pg RDW (11.5-15.5) % Plt Count (150-450) k/uL Lymphocytes # (1.0-4.8) k/uL Macrocytosis PT (9.0-12.0) sec INR (<1.2) APTT (22.0-30.0) sec D-Dimer (<0.60) mg/L FEU ABG pCO2 (35-45) mmHg ABG pO2 (83-108) mmHg ABG HCO3 (21-25) mmol/L ABG O2 Saturation (94-97) % VBG pH (7.31-7.41) VBG pCO2 (37-51) mmHg VBG HCO3 (24-28) mmol/L Sodium (137-145) mmol/L Chloride (98-107) mmol/L Carbon Dioxide (22-30) mmol/L Glucose (74-99) mg/dL POC Glucose (mg/dL) (70-110) mg/dL Plasma Lactic Acid Paul[place] (0.7-2.0) mmol/L Calcium (8.4-10.2) mg/dL Total Bilirubin (0.2-1.3) mg/dL AST (14-36) U/L ALT (4-34) U/L Alkaline Phosphatase (38-126) U/L Ammonia (<30) umol/L Total Protein (6.3-8.2) g/dL Albumin (3.5-5.0) g/dL TSH 0.436 L (0.465-4.680) mIU/L Ur Specific [place] (1.001-1.035) Urine Protein (Negative) Urine Blood (Negative) Urine Bilirubin (Negative) Urine Bacteria (None) /hpf Hyaline Casts (0-2) /lpf Urine Mucus (None) /hpf U Benzodiazepines Scrn (NotDetected) U Marijuana (THC) Screen (NotDetected) Assessment and Plan (1) Pneumonia Current Visit: Yes Status: Acute Code(s): J18.9 - PNEUMONIA, UNSPECIFIED ORGANISM SNOMED Code(s): 742074578 (2) Sepsis with acute hypoxic respiratory failure and septic shock Current Visit: Yes Status: Acute Code(s): A41.9 - SEPSIS, UNSPECIFIED ORGANISM; R65.21 - SEVERE SEPSIS WITH SEPTIC SHOCK; J96.01 - ACUTE RESPIRATORY FAILURE WITH HYPOXIA SNOMED Code(s): 80810204 Plan: 1patient was in the hospital with sepsis/septic shock in this patient who did have a fever hypotension elevated lactic acid source could be abdominal and there was evidence of some pericholecystic fluid on the ultrasound and possible component of pneumonia many to cover for the gram-positive as well as gram- negative pathogen 2-patient with cephalexin allergy that would limit the number of antibiotics safe to use 3-obtain sputum for Gram stain and culture check a CRP and a procalcitonin 4-continue with the vancomycin decrease the dose of meropenem to 1 g every 8 hours We will follow on clinical condition and cultures to further adjust medication if needed Thank you for this consultation we will follow the patient along with you Time with Patient: Greater than 30
[2022-10-09 23:29] LABS: Glucose,Whole Blood 111 mg/dL (70-110)
[2022-10-09] MEDS: MEROPENEM 1 GM in SODIUM CHLORIDE 0.9% 100 ML IVPB SCH (23:51)
[2022-10-10] MEDS: IPRATROPIUM-ALBUTEROL 3 ML NEB INHALATION SCH ×8 (00:07→23:57)
[2022-10-10] MEDS: NOREPINEPHRINE 4 MG in SODIUM CHLORIDE 0.9% 250 ML IV SCH ×4 (01:59→22:47)
[2022-10-10] MEDS: VANCOMYCIN 1,250 MG in SODIUM CHLORIDE 0.9% 250 ML IVPB SCH ×2 (02:00→11:02)
[2022-10-10] MEDS: LACTULOSE 200 GM/300 ML (FROM 1/2 GAL JUG) RECTAL SCH ×4 (02:01→14:35)
[2022-10-10] MEDS: 0.9% NACL WITH KCL 20 MEQ/L 1,000 ML IV SCH ×2 (04:59→12:30)
[2022-10-10 05:04] LABS: Albumin 2.2 g/dL (3.5-5.0); Calcium 6.7 mg/dL (8.4-10.2); Potassium 3.9 mmol/L (3.5-5.1); Total Bilirubin 6.4 mg/dL (0.2-1.3); Total Protein 5.3 g/dL (6.3-8.2)
[2022-10-10 05:26] LABS: Anisocytosis Slight; Basophils % (A) 0 %; Eosinophils % (A) 0 %; HCT 23.1 % (34.0-46.0); HGB 8.3 gm/dL (11.4-16.0); Hypochromasia Marked; Lymphocytes # (A) 1.3 k/uL (1.0-4.8); Lymphocytes % (A) 27 %; MCHC 35.9 g/dL (31.0-37.0); MCV 132.4 fL (80.0-100.0); Macrocytosis Marked; Mean Platelet Volume 10.9; Monocytes # (A) 0.3 k/uL (0-1.0); Monocytes % (A) 5 %; Neutrophils # (A) 3.3 k/uL (1.3-7.7); Neutrophils % (A) 66 %; RBC 1.75 m/uL (3.80-5.40); RDW 17.8 % (11.5-15.5)
[2022-10-10] MEDS: MIDAZOLAM HCL 50 MG in SODIUM CHLORIDE 0.9% 40 ML IV SCH ×2 (05:37→16:26)
[2022-10-10 06:08] LABS: MCH 47.5 pg (25.0-35.0)
[2022-10-10 06:09] LABS: Platelet Count 51 k/uL (150-450)
[2022-10-10 06:17] LABS: ABG Base Excess -9.3 mmol/L; ABG HCO3 17 mmol/L (21-25); ABG Oxygen Saturation 97.4 % (94-97); ABG PCO2 32 mmHg (35-45); ABG PH 7.33 (7.35-7.45); ABG PO2 94 mmHg (83-108); ABG TCO2 18 mmol/L (19-24); Allen Test Performed? Yes
[2022-10-10 07:57] LABS: INR 2.2 (<1.2); Prothrombin Time 21.2 sec (9.0-12.0)
--- NOTE | 2022-10-10 08:05 | XR ---
EXAMINATION TYPE: XR chest 1V portable DATE OF EXAM: 10/10/2022 COMPARISON: 10/09/2022 INDICATION: Tube placement TECHNIQUE: Single frontal view of the chest is obtained. FINDINGS: The heart size is normal. The pulmonary vasculature is normal. Mild left lower lobe infiltrate is present. Minimal infiltrate or atelectasis along the right lower l melo field. Endotracheal tube tip is 1.3 cm from the norberto, this could be pulled back approximately 1 cm. Nasoga stric tube transverses the thorax tip in the left upper quadrant of the abdomen. IMPRESSION: 1. Left lower lobe infiltrate, improving. Mild right lower lobe infiltrate is present. Correlate for atelectasis and pneumonia. 2. Endotracheal tube tip 1.3 cm above the norberto. This could be pulled back 1 cm.
[2022-10-10] MEDS: PANTOPRAZOLE 40 MG/10 ML VIAL IV SCH ×2 (08:06→20:06)
[2022-10-10] MEDS: CHLORHEXIDINE GLUCONATE 15 ML CUP MUCOUS MEM SCH ×2 (08:06→20:05)
[2022-10-10] MEDS: THIAMINE 100 MG TAB PO SCH (08:06)
[2022-10-10] MEDS: MEROPENEM 1 GM in SODIUM CHLORIDE 0.9% 100 ML IVPB SCH ×3 (08:06→23:29)
[2022-10-10] MEDS: RIFAXIMIN 550 MG TABLET PO SCH ×2 (08:19→20:06)
[2022-10-10] MEDS ORDERED: VANCOMYCIN TROUGH DUE 1 EACH MISC MISCELLANE ONE (09:00)
[2022-10-10] MEDS: DEXTROSE 5% IN WATER 1,000 ML with SODIUM BICARB (1 MEQ/ML) 150 ML IV SCH (09:40)
--- NOTE | 2022-10-10 11:44 | P.PN ---
Subjective Progress Note Date: 10/10/22 Principal diagnosis: , acute hypoxic respiratory failure secondary to pneumonia, sepsis, and possible aspiration. I am seeing this patient in new consultation today 10/09/2022 in regard to ICU management. Patient is a 42-year-old white female with past medical history significant for alcoholic liver diseas alcohol abuse, and suspected polysubstance abuse. Patient initially presented to the emergency room with family for new onset altered mental status yesterday evening. Family also reports that the patient has been coughing. Her last alcoholic drink was Saturday night. There is also concern for alcohol withdrawal. Patient is jaundiced. On top of these concerns, patient was found to be hypotensive and tachycardic on arrival to the emergency room. She is also febrile. Chest x-ray on arrival showed multifocal airspace opacities. A follow-up CT of the chest abdomen and pelvis with contrast redemonstrated the multifocal skilled scattered airspace opacities with concern for possible pneumonia, there were concerns about wedge- shape of the opacities and we will correlate with d-dimer, hepatic steatosis with hepatomegaly, nondistended large bowel with suspected pseudo-wall thickening and submucosal fat deposition which could correlate with colitis, and hyperemic gastric mucosa which could correlate for gastritis. Nonenhanced brain CT showed no acute intracranial process. Apparently, the patient became agitated in the emergency room. This agitation was treated with Ativan, and then patient became unresponsive. Emergency room physician intubated the patient to ultimately protect her airway. Preintubation ABG showed a pO2 of 72, pCO2 31, pH of 7.39. The patient is currently on mechanical ventilator settings AC, respiratory rate 24, tidal volume 400, FiO2 100%, PEEP of 5. Post-intubation chest x-ray shows the tip of the ET tube 2 centimeters from the norberto, with an NG tube coursing below the diaphragm. Patient's hypotension has been treated with 3 crystalloid boluses, and the patient has required a norepinephrine infusion currently infusing at 0.08 mics per kilogram per minute through a right femoral central line. Propofol is infusing at 5 mics per per kg per minute. The patient is calm and synchronous with mechanical ventilator at this time. Patient also has normal saline infusing at 100 mL per hour. Patient's CBC on arrival showed a WBC count of 7.7, hemoglobin 8.9, hematocrit 26.7, platelet count 67,000. Coagulation profile was abnormal with an INR 3.8. No evidence of acute bleed. CMP on arrival showed a sodium 132, potassium 4, chloride 93, serum CO2 21, B1 12, creatinine 0.94, glucose 66. Hypoglycemia was corrected and is currently 137 mg/dL. Patient's ammonia level was elevated at 69 and she is receiving lactulose. Lactic acid was elevated at 10.4. LFTs are elevated AST 153, ALT 98, and alkaline phosphatase 129. Patient has a gallbladder ultrasound pending. At this time it is unknown if the patient ingested other substances as she has a history of polysubstance abuse. A urine toxicology screen has been ordered. Pancultures are pending. Patient is currently empirically covered with meropenem and vancomycin. Patient is febrile with a T- max of 100.1F. Patient was negative for influenza, RSV, COVID-19. Patient's condition at this time is critical. Patient is a full code. Patient was reevaluated today on 10/10/2022, remains in the ICU, intubated and mechanically ventilated. He is on assist control rate of 24th of 400 FiO2 50% and PEEP of 8 ABG showed a pO2 of 94 pCO2 32 pH of 7.33. Hemoglobin is 8.3 INR is 2.2. Endotracheal tube is noted to be distal in the trachea, and this will be pulled back about 1.5 cm. Patient remains on D5 45 at 50 mL per hour, is also on propofol at 75 norepinephrine at 0.06 vasopressin at 0.03 and fentanyl, patient is receiving enteral feeding. She is on vital HPI at 30 mL per hour, chest x-ray continues to show an infiltrate in the left lower lobe and right lower lobe endotracheal tube was noted to be relatively close to the norberto and this will be adjusted., sputum Gram stain is positive for presumptive staph aureus, final report is pending, patient remains on Merrem and vancomycin in the meantime Objective - Vital Signs Vital signs: Vital Signs Temp 100.9 F H 10/10/22 08:00 Pulse 125 H 10/10/22 11:28 Resp 15 10/10/22 11:28 BP 108/46 10/10/22 06:00 Pulse Ox 91 L 10/10/22 11:00 FiO2 50 10/10/22 11:12 Intake & Output 10/09/22 10/10/22 10/10/22 18:59 06:59 18:59 Intake Total 2243.663 2098.688 1290.751 Output Total 120 195 75 Balance 2123.663 9819.009 3546.751 Weight 70 kg 67.8 kg Intake: IV 1355 910 500 0.9% NaCl with KCl 20 Meq 150 900 300 /l 1,000 ml @ 75 mls/hr IV .[id number] FUENTES Rx#: [id number] Dextrose 5% in Water 1, 100 000 ml @ 50 mls/hr IV . Q23H FUENTES with Sodium Bicarb (1 Meq/ml) 150 ml Rx#:[id number] Meropenem 2 gm In Sodium 200 100 Chloride 0.9% 100 ml @ 33 .3 mls/hr IVPB Q8H FUENTES Rx #:[id number] Phytonadione 10 mg In 50 Sodium Chloride 0.9% 50 ml @ 100 mls/hr IVPB ONCE STA Rx#:[id number] Sodium Chloride 0.9% 1, 705 10 000 ml @ 75 mls/hr IV . [id number] FUENTES Rx#:[id number] Vancomycin 1,250 mg In 250 Sodium Chloride 0.9% 250 ml @ 125 mls/hr IVPB ONCE STA Rx#:[id number] Intake, IV Titration 798.663 748.688 340.751 Amount Midazolam HCl 50 mg In 9 56.067 Sodium Chloride 0.9% 40 ml @ 2 MG/HR 2 mls/hr IV .Q24H FUENTES Rx#:[id number] Norepinephrine 4 mg In 543.040 310.424 254.000 Sodium Chloride 0.9% 250 ml @ 0.03 MCG/KG/MIN 7. 777 mls/hr IV .Q24H FUENTES Rx#:[id number] propofoL 1,000 mg In 246.623 382.197 86.751 Empty Bag 1 bag @ 15 MCG/ KG/MIN 6.124 mls/hr IV . [id number] FUENTES Rx#:[id number] Oral 300 Tube Feeding 40 440 120 Other 50 30 Output: Urine 120 195 75 Other: Voiding Method Indwelling Catheter Indwelling Catheter Indwelling Catheter # Bowel Movements 1 ABP, PAP, CO, CI - Last Documented Arterial Blood Pressure 116/30 - Exam Physical Exam: Revealed 42-year-old female sedated, mechanically ventilated, in no distress. Head: Atraumatic, normocephalic. HEENT:[Neck is supple.] [No neck masses.] [No thyromegaly.] [No JVD.]positive jaundice. Chest: [symmetrical chest expansion, crackles at the bases.] Cardiac Exam: [Normal S1 and S2, no S3 gallop, no murmur.] Abdomen: [Soft,small ascites palpable. nontender, no megaly, no rebound, no gua rding, normal bowel sounds.] Extremities: [No clubbing, no edema, no cyanosis.] Neurological Exam:could not be assessed patient is sedated. Psychiatric: Could not assess. - Labs CBC & Chem 7: 10/10/22 04:30 10/10/22 04:30 Labs: Abnormal Lab Results - Last 24 Hours (Table) 10/09/22 10/09/22 10/09/22 Range/Units 09:20 12:40 12:40 RBC (3.80-5.40) m/uL Hgb (11.4-16.0) gm/dL Hct (34.0-46.0) % MCV (80.0-100.0) fL MCH (25.0-35.0) pg RDW (11.5-15.5) % Plt Count (150-450) k/uL Macrocytosis PT 35.5 H (9.0-12.0) sec INR 3.6 H (<1.2) ABG pH (7.35-7.45) ABG pCO2 (35-45) mmHg ABG HCO3 (21-25) mmol/L ABG Total CO2 (19-24) mmol/L ABG O2 Saturation (94-97) % Chloride (98-107) mmol/L Carbon Dioxide (22-30) mmol/L BUN (7-17) mg/dL Creatinine (0.52-1.04) mg/dL Glucose (74-99) mg/dL POC Glucose (mg/dL) (70-110) mg/dL Plasma Lactic Acid Paulino 7.3 H* (0.7-2.0) mmol/L Calcium (8.4-10.2) mg/dL Total Bilirubin 7.1 H (0.2-1.3) mg/dL Conjugated Bilirubin 3.4 H (0.0-0.3) mg/dL Unconjugated Bilirubin 1.5 H (0.0-1.1) mg/dL Delta Bilirubin 2.2 H (0.0-0.2) mg/dL AST (14-36) U/L ALT (4-34) U/L Ammonia (<30) umol/L Total Protein (6.3-8.2) g/dL Albumin (3.5-5.0) g/dL 10/09/22 10/09/22 10/09/22 Range/Units 16:00 17:56 18:40 RBC (3.80-5.40) m/uL Hgb (11.4-16.0) gm/dL Hct (34.0-46.0) % MCV (80.0-100.0) fL MCH (25.0-35.0) pg RDW (11.5-15.5) % Plt Count (150-450) k/uL Macrocytosis PT (9.0-12.0) sec INR (<1.2) ABG pH (7.35-7.45) ABG pCO2 (35-45) mmHg ABG HCO3 (21-25) mmol/L ABG Total CO2 (19-24) mmol/L ABG O2 Saturation (94-97) % Chloride (98-107) mmol/L Carbon Dioxide (22-30) mmol/L BUN (7-17) mg/dL Creatinine (0.52-1.04) mg/dL Glucose (74-99) mg/dL POC Glucose (mg/dL) 59 L 149 H (70-110) mg/dL Plasma Lactic Acid Paulino 7.4 H* (0.7-2.0) mmol/L Calcium (8.4-10.2) mg/dL Total Bilirubin (0.2-1.3) mg/dL Conjugated Bilirubin (0.0-0.3) mg/dL Unconjugated Bilirubin (0.0-1.1) mg/dL Delta Bilirubin (0.0-0.2) mg/dL AST (14-36) U/L ALT (4-34) U/L Ammonia (<30) umol/L Total Protein (6.3-8.2) g/dL Albumin (3.5-5.0) g/dL 10/09/22 10/09/22 10/10/22 Range/Units 21:16 23:28 04:30 RBC (3.80-5.40) m/uL Hgb (11.4-16.0) gm/dL Hct (34.0-46.0) % MCV (80.0-100.0) fL MCH (25.0-35.0) pg RDW (11.5-15.5) % Plt Count (150-450) k/uL Macrocytosis PT (9.0-12.0) sec INR (<1.2) ABG pH (7.35-7.45) ABG pCO2 (35-45) mmHg ABG HCO3 (21-25) mmol/L ABG Total CO2 (19-24) mmol/L ABG O2 Saturation (94-97) % Chloride (98-107) mmol/L Carbon Dioxide (22-30) mmol/L BUN (7-17) mg/dL Creatinine (0.52-1.04) mg/dL Glucose (74-99) mg/dL POC Glucose (mg/dL) 118 H 111 H (70-110) mg/dL Plasma Lactic Acid Paulino (0.7-2.0) mmol/L Calcium (8.4-10.2) mg/dL Total Bilirubin (0.2-1.3) mg/dL Conjugated Bilirubin (0.0-0.3) mg/dL Unconjugated Bilirubin (0.0-1.1) mg/dL Delta Bilirubin (0.0-0.2) mg/dL AST (14-36) U/L ALT (4-34) U/L Ammonia 85 H (<30) umol/L Total Protein (6.3-8.2) g/dL Albumin (3.5-5.0) g/dL 10/10/22 10/10/22 10/10/22 Range/Units 04:30 04:30 06:04 RBC 1.75 L (3.80-5.40) m/uL Hgb 8.3 L (11.4-16.0) gm/dL Hct 23.1 L (34.0-46.0) % MCV 132.4 H (80.0-100.0) fL MCH 47.5 H (25.0-35.0) pg RDW 17.8 H (11.5-15.5) % Plt Count 51 L (150-450) k/uL Macrocytosis Marked A PT (9.0-12.0) sec INR (<1.2) ABG pH 7.33 L (7.35-7.45) ABG pCO2 32 L (35-45) mmHg ABG HCO3 17 L (21-25) mmol/L ABG Total CO2 18 L (19-24) mmol/L ABG O2 Saturation 97.4 H (94-97) % Chloride 110 H (98-107) mmol/L Carbon Dioxide 14 L (22-30) mmol/L BUN 20 H (7-17) mg/dL Creatinine 1.77 H (0.52-1.04) mg/dL Glucose 107 H (74-99) mg/dL POC Glucose (mg/dL) (70-110) mg/dL Plasma Lactic Acid Paulino (0.7-2.0) mmol/L Calcium 6.7 L (8.4-10.2) mg/dL Total Bilirubin 6.4 H (0.2-1.3) mg/dL Conjugated Bilirubin (0.0-0.3) mg/dL Unconjugated Bilirubin (0.0-1.1) mg/dL Delta Bilirubin (0.0-0.2) mg/dL AST 424 H (14-36) U/L ALT 64 H (4-34) U/L Ammonia (<30) umol/L Total Protein 5.3 L (6.3-8.2) g/dL Albumin 2.2 L (3.5-5.0) g/dL 10/10/22 Range/Units 07:10 RBC (3.80-5.40) m/uL Hgb (11.4-16.0) gm/dL Hct (34.0-46.0) % MCV (80.0-100.0) fL MCH (25.0-35.0) pg RDW (11.5-15.5) % Plt Count (150-450) k/uL Macrocytosis PT 21.2 H (9.0-12.0) sec INR 2.2 H (<1.2) ABG pH (7.35-7.45) ABG pCO2 (35-45) mmHg ABG HCO3 (21-25) mmol/L ABG Total CO2 (19-24) mmol/L ABG O2 Saturation (94-97) % Chloride (98-107) mmol/L Carbon Dioxide (22-30) mmol/L BUN (7-17) mg/dL Creatinine (0.52-1.04) mg/dL Glucose (74-99) mg/dL POC Glucose (mg/dL) (70-110) mg/dL Plasma Lactic Acid Paulino (0.7-2.0) mmol/L Calcium (8.4-10.2) mg/dL Total Bilirubin (0.2-1.3) mg/dL Conjugated Bilirubin (0.0-0.3) mg/dL Unconjugated Bilirubin (0.0-1.1) mg/dL Delta Bilirubin (0.0-0.2) mg/dL AST (14-36) U/L ALT (4-34) U/L Ammonia (<30) umol/L Total Protein (6.3-8.2) g/dL Albumin (3.5-5.0) g/dL Microbiology - Last 24 Hours (Table) 10/09/22 01:00 Blood Culture Gram Stain - Preliminary Blood 10/09/22 00:23 Gram Stain - Preliminary Sputum Sputum Culture - Preliminary Presumptive Staph aureus 10/09/22 01:30 Blood Culture - Preliminary Blood No Growth after 24 hours 10/09/22 01:00 Blood Culture - Final Blood Assessment and Plan Assessment: impression: Acute hypoxic respiratory failure secondary to sepsis, septic shock, Suspect aspiration pneumonia or staph aureus pneumonia, final identification on the culture is pending. Acute metabolic and lactic acidosis secondary to sepsis and septic shock Acute alcohol withdrawal History of polysubstance abuse Hepatic encephalopathy, ammonia level on admission was 69 Chronic thrombocytopenia related to alcoholism Chronic macrocytic anemia Liver cirrhosis secondary to alcohol. Recommendation: Continue ventilatory support. Continue hemodynamic support. And titrate norepinephrine accordingly. Titrate vasopressin accordingly. Continue lactulose and monitor ammonia level. Continue empiric antibiotics including Merrem and vancomycin continue bronchodilators Continue GI and DVT prophylaxis Adjust antibiotics according to the final cultures from the sputum and blood Continuenutritional support/enteral feeding prognosis is guarded. Patient is critically ill. Critical care time is over 30 minutes Time with Patient: Greater than 30
[2022-10-10] MEDS: VASOPRESSIN 60 UNIT in SODIUM CHLORIDE 0.9% 150 ML IV SCH (11:48)
[2022-10-10 11:57] LABS: Glucose,Whole Blood 225 mg/dL (70-110)
--- NOTE | 2022-10-10 13:24 | P.PN ---
Subjective Progress Note Date: 10/10/22 Principal diagnosis: Hepatic encephalopathy This is a 42-year-old female who is brought in by EMS yesterday for altered mental status changes. History is obtained from the chart and the nurse. Patient has a long-standing history of alcohol abuse and known alcoholic liver disease. She just returned home from vacation over the weekend and her had noticed that she was acting different and much slower. Apparently progressively got worse and she was brought in for further evaluation. Reportedly her last drink was on Saturday. On admission patient was noted to have lactic acid of 10.4. She was admitted to the ICU and subsequently sedated and intubated for airway protection. Nursing stating she is on high dose of propofol and still having difficulty with sedating her. Patient was also positive for benzodiazepine and marijuana. Serum alcohol level less than 10. Patient currently remains sedated and intubated. She's had decreased urine output, has been tachycardic and hypotensive. Elevated ammonia level, patient was started on lactulose per rectum and nursing reported no bowel movements after 2 doses. Currently on meropenem and vancomycin. Admitting labs WBC 7.7 hemoglobin 8.9 hematocrit 26 platelet count 67,000 INR 3.8 sodium 132 potassium 4.0 creatinine 0.9 glucose 66 plasma lactic acid 10.4 total bilirubin 9.7, AST 5053 ALT 28 alkaline phosphatase 129 ammonia 69 Part of patient's workup consisted of a CT abdomen and pelvis with contrast that reported multiple findings including scattered airspace of P cities concerning for infectious/inflammatory process. Airspace opacities in the anterior upper lungs are somewhat wedge-shaped. Consider correlation with d-dimer and setting of pulmonary infarct. Hepatic status is within hepatic likely. Correlate with serum markers for hepatitis. Nondistended large bowel was circumferential stevenson pected pseudo-wall thickening with submucosal fat deposition. Alternatively findings could represent component of colitis, hyperemic gastric mucosa correlate for gastritis Ultrasound gallbladder reported fatty infiltrative liver. Gallbladder sludge with mild wall thickening measuring up to 0.4 cm and pericholecystic fluid 10/10/2022: Patient is seen and examined in the ICU. She remains sedated and intubated, Versed was started on patient. she is on CIWA protocol. On norepinephrine and propofol. Xifaxan was started yesterday. Patient reportedly had several bowel movements on a yesterday afternoon, however has not had any through the evening. LFTs trending down. Ammonia level improving. Today's labs WBC 5.0 hemoglobin 8.3 hematocrit 23 platelet count 51,000 INR 2.2 minutes at 190 total bilirubin 6.4 AST 424 ALT 64 alkaline phosphatase 97 ammonia level 85. Objective - Vital Signs Vital signs: Vital Signs Temp 100.9 F H 10/10/22 08:00 Pulse 141 H 10/10/22 08:00 Resp 28 H 10/10/22 08:00 BP 108/46 10/10/22 06:00 Pulse Ox 92 L 10/10/22 08:00 FiO2 50 10/10/22 08:00 Intake & Output 10/09/22 10/10/22 10/10/22 18:59 06:59 18:59 Intake Total 2243.663 2098.688 423.718 Output Total 120 195 25 Balance 2123.663 1903.688 398.718 Weight 70 kg 67.8 kg Intake: IV 1355 910 175 0.9% NaCl with KCl 20 Meq 150 900 75 /l 1,000 ml @ 75 mls/hr IV .[id number] [facility] Rx#: [id number] Meropenem 2 gm In Sodium 200 100 Chloride 0.9% 100 ml @ 33 .3 mls/hr IVPB Q8H [facility] Rx #:[id number] Phytonadione 10 mg In 50 Sodium Chloride 0.9% 50 ml @ 100 mls/hr IVPB ONCE STA Rx#:[id number] Sodium Chloride 0.9% 1, 705 10 000 ml @ 75 mls/hr IV . [id number] [facility] Rx#:[id number] Vancomycin 1,250 mg In 250 Sodium Chloride 0.9% 250 ml @ 125 mls/hr IVPB ONCE STA Rx#:[id number] Intake, IV Titration 798.663 748.688 188.718 Amount Midazolam HCl 50 mg In 9 56.067 Sodium Chloride 0.9% 40 ml @ 2 MG/HR 2 mls/hr IV .Q24H [facility] Rx#:[id number] Norepinephrine 4 mg In 543.040 310.424 188.718 Sodium Chloride 0.9% 250 ml @ 0.03 MCG/KG/MIN 7. 777 mls/hr IV .Q24H [facility] Rx#:[id number] propofoL 1,000 mg In 246.623 382.197 Empty Bag 1 bag @ 15 MCG/ KG/MIN 6.124 mls/hr IV . [id number] [facility] Rx#:[id number] Tube Feeding 40 440 30 Other 50 30 Output: Urine 120 195 25 Other: Voiding Method Indwelling Catheter Indwelling Catheter ABP, PAP, CO, CI - Last Documented Arterial Blood Pressure 119/36 - Exam General appearance: The patient is sedated and intubated. HET: Head is normocephalic and atraumatic. Conjunctiva pink. Sclera icteric. Neck: Supple without lymphadenopathy. Abdomen: Soft, nontender, nondistended. Extremities: Normal skin color and turgor. No pedal edema Skin: No rashes, jaundice. Neurological: Sedated and intubated. - Labs CBC & Chem 7: 10/10/22 04:30 10/10/22 04:30 Labs: Abnormal Lab Results - Last 24 Hours (Table) 10/09/22 10/09/22 10/09/22 Range/Units 09:20 09:20 09:20 RBC (3.80-5.40) m/uL Hgb (11.4-16.0) gm/dL Hct (34.0-46.0) % MCV (80.0-100.0) fL MCH (25.0-35.0) pg RDW (11.5-15.5) % Plt Count (150-450) k/uL Macrocytosis PT (9.0-12.0) sec INR (<1.2) ABG pH (7.35-7.45) ABG pCO2 (35-45) mmHg ABG HCO3 (21-25) mmol/L ABG Total CO2 (19-24) mmol/L ABG O2 Saturation (94-97) % Chloride (98-107) mmol/L Carbon Dioxide (22-30) mmol/L BUN (7-17) mg/dL Creatinine (0.52-1.04) mg/dL Glucose (74-99) mg/dL POC Glucose (mg/dL) (70-110) mg/dL Plasma Lactic Acid Paulino 7.8 H* (0.7-2.0) mmol/L Calcium (8.4-10.2) mg/dL Total Bilirubin 7.1 H (0.2-1.3) mg/dL Conjugated Bilirubin 3.4 H (0.0-0.3) mg/dL Unconjugated Bilirubin 1.5 H (0.0-1.1) mg/dL Delta Bilirubin 2.2 H (0.0-0.2) mg/dL AST (14-36) U/L ALT (4-34) U/L Ammonia (<30) umol/L Total Protein (6.3-8.2) g/dL Albumin (3.5-5.0) g/dL TSH 0.436 L (0.465-4.680) mIU/L 10/09/22 10/09/22 10/09/22 Range/Units 12:40 12:40 16:00 RBC (3.80-5.40) m/uL Hgb (11.4-16.0) gm/dL Hct (34.0-46.0) % MCV (80.0-100.0) fL MCH (25.0-35.0) pg RDW (11.5-15.5) % Plt Count (150-450) k/uL Macrocytosis PT 35.5 H (9.0-12.0) sec INR 3.6 H (<1.2) ABG pH (7.35-7.45) ABG pCO2 (35-45) mmHg ABG HCO3 (21-25) mmol/L ABG Total CO2 (19-24) mmol/L ABG O2 Saturation (94-97) % Chloride (98-107) mmol/L Carbon Dioxide (22-30) mmol/L BUN (7-17) mg/dL Creatinine (0.52-1.04) mg/dL Glucose (74-99) mg/dL POC Glucose (mg/dL) (70-110) mg/dL Plasma Lactic Acid Paulino 7.3 H* 7.4 H* (0.7-2.0) mmol/L Calcium (8.4-10.2) mg/dL Total Bilirubin (0.2-1.3) mg/dL Conjugated Bilirubin (0.0-0.3) mg/dL Unconjugated Bilirubin (0.0-1.1) mg/dL Delta Bilirubin (0.0-0.2) mg/dL AST (14-36) U/L ALT (4-34) U/L Ammonia (<30) umol/L Total Protein (6.3-8.2) g/dL Albumin (3.5-5.0) g/dL TSH (0.465-4.680) mIU/L 10/09/22 10/09/22 10/09/22 Range/Units 17:56 18:40 21:16 RBC (3.80-5.40) m/uL Hgb (11.4-16.0) gm/dL Hct (34.0-46.0) % MCV (80.0-100.0) fL MCH (25.0-35.0) pg RDW (11.5-15.5) % Plt Count (150-450) k/uL Macrocytosis PT (9.0-12.0) sec INR (<1.2) ABG pH (7.35-7.45) ABG pCO2 (35-45) mmHg ABG HCO3 (21-25) mmol/L ABG Total CO2 (19-24) mmol/L ABG O2 Saturation (94-97) % Chloride (98-107) mmol/L Carbon Dioxide (22-30) mmol/L BUN (7-17) mg/dL Creatinine (0.52-1.04) mg/dL Glucose (74-99) mg/dL POC Glucose (mg/dL) 59 L 149 H 118 H (70-110) mg/dL Plasma Lactic Acid Paulino (0.7-2.0) mmol/L Calcium (8.4-10.2) mg/dL Total Bilirubin (0.2-1.3) mg/dL Conjugated Bilirubin (0.0-0.3) mg/dL Unconjugated Bilirubin (0.0-1.1) mg/dL Delta Bilirubin (0.0-0.2) mg/dL AST (14-36) U/L ALT (4-34) U/L Ammonia (<30) umol/L Total Protein (6.3-8.2) g/dL Albumin (3.5-5.0) g/dL TSH (0.465-4.680) mIU/L 10/09/22 10/10/22 10/10/22 Range/Units 23:28 04:30 04:30 RBC 1.75 L (3.80-5.40) m/uL Hgb 8.3 L (11.4-16.0) gm/dL Hct 23.1 L (34.0-46.0) % MCV 132.4 H (80.0-100.0) fL MCH 47.5 H (25.0-35.0) pg RDW 17.8 H (11.5-15.5) % Plt Count 51 L (150-450) k/uL Macrocytosis Marked A PT (9.0-12.0) sec INR (<1.2) ABG pH (7.35-7.45) ABG pCO2 (35-45) mmHg ABG HCO3 (21-25) mmol/L ABG Total CO2 (19-24) mmol/L ABG O2 Saturation (94-97) % Chloride (98-107) mmol/L Carbon Dioxide (22-30) mmol/L BUN (7-17) mg/dL Creatinine (0.52-1.04) mg/dL Glucose (74-99) mg/dL POC Glucose (mg/dL) 111 H (70-110) mg/dL Plasma Lactic Acid Paulino (0.7-2.0) mmol/L Calcium (8.4-10.2) mg/dL Total Bilirubin (0.2-1.3) mg/dL Conjugated Bilirubin (0.0-0.3) mg/dL Unconjugated Bilirubin (0.0-1.1) mg/dL Delta Bilirubin (0.0-0.2) mg/dL AST (14-36) U/L ALT (4-34) U/L Ammonia 85 H (<30) umol/L Total Protein (6.3-8.2) g/dL Albumin (3.5-5.0) g/dL TSH (0.465-4.680) mIU/L 10/10/22 10/10/22 10/10/22 Range/Units 04:30 06:04 07:10 RBC (3.80-5.40) m/uL Hgb (11.4-16.0) gm/dL Hct (34.0-46.0) % MCV (80.0-100.0) fL MCH (25.0-35.0) pg RDW (11.5-15.5) % Plt Count (150-450) k/uL Macrocytosis PT 21.2 H (9.0-12.0) sec INR 2.2 H (<1.2) ABG pH 7.33 L (7.35-7.45) ABG pCO2 32 L (35-45) mmHg ABG HCO3 17 L (21-25) mmol/L ABG Total CO2 18 L (19-24) mmol/L ABG O2 Saturation 97.4 H (94-97) % Chloride 110 H (98-107) mmol/L Carbon Dioxide 14 L (22-30) mmol/L BUN 20 H (7-17) mg/dL Creatinine 1.77 H (0.52-1.04) mg/dL Glucose 107 H (74-99) mg/dL POC Glucose (mg/dL) (70-110) mg/dL Plasma Lactic Acid Paulino (0.7-2.0) mmol/L Calcium 6.7 L (8.4-10.2) mg/dL Total Bilirubin 6.4 H (0.2-1.3) mg/dL Conjugated Bilirubin (0.0-0.3) mg/dL Unconjugated Bilirubin (0.0-1.1) mg/dL Delta Bilirubin (0.0-0.2) mg/dL AST 424 H (14-36) U/L ALT 64 H (4-34) U/L Ammonia (<30) umol/L Total Protein 5.3 L (6.3-8.2) g/dL Albumin 2.2 L (3.5-5.0) g/dL TSH (0.465-4.680) mIU/L Microbiology - Last 24 Hours (Table) 10/09/22 01:30 Blood Culture - Preliminary Blood No Growth after 24 hours 10/09/22 00:23 Gram Stain - Preliminary Sputum Sputum Culture - Preliminary 10/09/22 01:00 Blood Culture Gram Stain - Preliminary Blood 10/09/22 01:00 Blood Culture - Final Blood Assessment and Plan (1) Hepatic encephalopathy Narrative/Plan: 42-year-old female with a normal history of alcohol abuse and alcoholic liver disease who presented to the emergency department with altered mental status changes. Patient had elevated ammonia level at 69, hypercoagulable with anemia and thrombocytopenia consistent with underlying liver disease. Patient continues to drink last drink was Saturday, some component also likely related to withdrawal symptoms. Continue current ICU management, will add Xifaxan, continue with lactulose and titrate to have 3-4 bowel movements daily. Continue with current medical management. Continue lactulose, Xifaxan, titrate lactulose to have 3-4 bowel movements daily. Daily labs. Current Visit: Yes Status: Acute Code(s): K76.82 - HEPATIC ENCEPHALOPATHY SNOMED Code(s): 45747153 (2) Alcoholic liver disease Current Visit: Yes Status: Acute Code(s): K70.9 - ALCOHOLIC LIVER DISEASE, UNSPECIFIED SNOMED Code(s): 06402087 (3) Lactic acidosis Current Visit: Yes Status: Acute Code(s): E87.2 - ACIDOSIS * DO NOT USE * SNOMED Code(s): 25087431 (4) ETOH abuse Current Visit: No Status: Acute Code(s): F10.10 - ALCOHOL ABUSE, UNCOMPLICATED SNOMED Code(s): 32179225 (5) Hypercoagulopathy Current Visit: Yes Status: Acute Code(s): D68.59 - OTHER PRIMARY THROMBOPHILIA SNOMED Code(s): 56200453 (6) Thrombocytopenia Current Visit: Yes Status: Acute Code(s): D69.6 - THROMBOCYTOPENIA, UNSPECIFIED SNOMED Code(s): 425292527 Plan: 1. Continue symptomatic and supportive care 2. Continue medical management and recommendations from cement sack breaker. 3. Continue lactulose as ordered, titrate to 3-4 bowel movements daily 4. Continue Xifaxin 550 mg twice a day 5. Daily CBC, INR, CMP, ammonia 6. Continue empiric antibiotics 7. Protonix 40 mg IV daily for GI prophylaxis 8. CIWA recall, monitor for withdrawal symptoms Thank you for this consultation, we will continue to follow Dr. Kaiden Brandon I agree with the dictator's note, documented as a scribe by Camilla MARTÍNEZ.
[2022-10-10] MEDS ORDERED: VANCOMYCIN IV PER PHARMACY 1 EACH MISC MISCELLANE PRN (13:42)
--- NOTE | 2022-10-10 14:31 | PN ---
PROGRESS NOTE DATE OF SERVICE: 10/10/2022 SUBJECTIVE: This is a 42-year-old woman who was admitted with bilateral pneumonia, acute alcoholic intoxication, delirium tremens mechanical ventilated, intubated. The patient is on broad-spectrum IV antibiotics. The patient had multiple hematologic abnormalities also. The patient is on mechanical ventilation. The patient is on pressor support. PAST MEDICAL HISTORY: Reviewed. REVIEW OF SYSTEMS: Could not be taken. CURRENT MEDICATIONS: Reviewed include meropenem. PHYSICAL EXAMINATION: VITAL SIGNS: Pulse is 129, blood pressure 116/30, respirations 24. HEENT: Conjunctivae normal. NECK: No JVD. CARDIOVASCULAR: S1, S2 tachycardic. RESPIRATIONS: A few scattered rhonchi. ABDOMEN: Soft. NERVOUS SYSTEM: On mechanical ventilation. LABORATORY DATA: Reviewed. ASSESSMENT: 1. Bilateral pneumonia, possibly aspiration with sepsis present on admission. 2. Acute hypoxic respiratory failure, on mechanical ventilation. 3. Anemia and thrombocytopenia secondary to alcohol. 4. Alcoholic hepatitis. 5. Alcohol withdrawal syndrome and delirium tremens. 6. Sinus tachycardia. 7. Multiple medical issues. RECOMMENDATIONS AND DISCUSSION: Recommend to continue current medications, continue symptomatic treatment. I would also recommend a 2D echo with Doppler to complete the workup. Otherwise, we will monitor the LFTs. Prognosis extremely guarded because of multiple complex medical issues. Continue with pressor support and broad-spectrum IV antibiotics. The sputum culture showed presumptive Staph aureus. The patient is currently on vancomycin also. MMODL / IJN: [id number] /
--- NOTE | 2022-10-10 15:12 | P.PN ---
Subjective Progress Note Date: 10/10/22 Principal diagnosis: Sepsis and bacteremia Patient is a 42-year-old female with a past medical history significant for GERD reflux diabetic steatosis alcohol abuse presenting to the ER for evaluation of mental status changes , patient was noticed to be hypotensive afebrile and evidence of sepsis requiring intubation and admission to the ICU. On today's evaluation had that is 10/10/2022, the patient had did have a low- grade fever 100.9 this morning, the patient is requiring more pressor support for the nursing staff at the bedside, the patient and FiO2 is down to 50% and no significant purulent secretion through the ET and no diarrhea has been reported , Objective - Vital Signs Vital signs: Vital Signs Temp 98.6 F 10/10/22 12:00 Pulse 121 H 10/10/22 13:00 Resp 24 10/10/22 13:00 BP 108/46 10/10/22 06:00 Pulse Ox 91 L 10/10/22 13:00 FiO2 50 10/10/22 11:44 Intake & Output 10/09/22 10/10/22 10/10/22 18:59 06:59 18:59 Intake Total 2243.663 2098.688 1801.011 Output Total 120 195 100 Balance 2123.663 4974.948 6645.011 Weight 70 kg 67.8 kg Intake: IV 1355 910 750 0.9% NaCl with KCl 20 Meq 150 900 450 /l 1,000 ml @ 75 mls/hr IV .[id number] [facility] Rx#: [id number] Dextrose 5% in Water 1, 200 000 ml @ 50 mls/hr IV . Q23H [facility] with Sodium Bicarb (1 Meq/ml) 150 ml Rx#:[id number] Meropenem 2 gm In Sodium 200 100 Chloride 0.9% 100 ml @ 33 .3 mls/hr IVPB Q8H [facility] Rx #:[id number] Phytonadione 10 mg In 50 Sodium Chloride 0.9% 50 ml @ 100 mls/hr IVPB ONCE STA Rx#:[id number] Sodium Chloride 0.9% 1, 705 10 000 ml @ 75 mls/hr IV . [id number] [facility] Rx#:[id number] Vancomycin 1,250 mg In 250 Sodium Chloride 0.9% 250 ml @ 125 mls/hr IVPB ONCE STA Rx#:[id number] Intake, IV Titration 798.663 748.688 511.011 Amount Midazolam HCl 50 mg In 9 56.067 Sodium Chloride 0.9% 40 ml @ 2 MG/HR 2 mls/hr IV .Q24H [facility] Rx#:[id number] Norepinephrine 4 mg In 543.040 310.424 308.439 Sodium Chloride 0.9% 250 ml @ 0.03 MCG/KG/MIN 7. 777 mls/hr IV .Q24H [facility] Rx#:[id number] Vasopressin 60 unit In 115.821 Sodium Chloride 0.9% 150 ml @ 0.03 UNITS/MIN 4.59 mls/hr IV .Q24H [facility] Rx#: [id number] propofoL 1,000 mg In 246.623 382.197 86.751 Empty Bag 1 bag @ 15 MCG/ KG/MIN 6.124 mls/hr IV . [id number] [facility] Rx#:[id number] Oral 300 Tube Feeding 40 440 180 Other 50 60 Output: Urine 120 195 100 Other: Voiding Method Indwelling Catheter Indwelling Catheter Indwelling Catheter # Bowel Movements 1 ABP, PAP, CO, CI - Last Documented Arterial Blood Pressure 97/42 - Exam GENERAL DESCRIPTION: A middle-aged female intubated on the vent RESPIRATORY SYSTEM: Unlabored breathing , decreased breath sounds at bases HEART: S1 S2 regular rate and rhythm , ABDOMEN: Soft , mild distention EXTREMITIES: No edema feet - Labs CBC & Chem 7: 10/10/22 04:30 10/10/22 04:30 Labs: Abnormal Lab Results - Last 24 Hours (Table) 10/09/22 10/09/22 10/09/22 Range/Units 09:20 12:40 16:00 RBC (3.80-5.40) m/uL Hgb (11.4-16.0) gm/dL Hct (34.0-46.0) % MCV (80.0-100.0) fL MCH (25.0-35.0) pg RDW (11.5-15.5) % Plt Count (150-450) k/uL Macrocytosis PT (9.0-12.0) sec INR (<1.2) ABG pH (7.35-7.45) ABG pCO2 (35-45) mmHg ABG HCO3 (21-25) mmol/L ABG Total CO2 (19-24) mmol/L ABG O2 Saturation (94-97) % Chloride (98-107) mmol/L Carbon Dioxide (22-30) mmol/L BUN (7-17) mg/dL Creatinine (0.52-1.04) mg/dL Glucose (74-99) mg/dL POC Glucose (mg/dL) (70-110) mg/dL Plasma Lactic Acid Paulino 7.3 H* 7.4 H* (0.7-2.0) mmol/L Calcium (8.4-10.2) mg/dL Total Bilirubin 7.1 H (0.2-1.3) mg/dL Conjugated Bilirubin 3.4 H (0.0-0.3) mg/dL Unconjugated Bilirubin 1.5 H (0.0-1.1) mg/dL Delta Bilirubin 2.2 H (0.0-0.2) mg/dL AST (14-36) U/L ALT (4-34) U/L Ammonia (<30) umol/L Total Protein (6.3-8.2) g/dL Albumin (3.5-5.0) g/dL 10/09/22 10/09/22 10/09/22 Range/Units 17:56 18:40 21:16 RBC (3.80-5.40) m/uL Hgb (11.4-16.0) gm/dL Hct (34.0-46.0) % MCV (80.0-100.0) fL MCH (25.0-35.0) pg RDW (11.5-15.5) % Plt Count (150-450) k/uL Macrocytosis PT (9.0-12.0) sec INR (<1.2) ABG pH (7.35-7.45) ABG pCO2 (35-45) mmHg ABG HCO3 (21-25) mmol/L ABG Total CO2 (19-24) mmol/L ABG O2 Saturation (94-97) % Chloride (98-107) mmol/L Carbon Dioxide (22-30) mmol/L BUN (7-17) mg/dL Creatinine (0.52-1.04) mg/dL Glucose (74-99) mg/dL POC Glucose (mg/dL) 59 L 149 H 118 H (70-110) mg/dL Plasma Lactic Acid Paulino (0.7-2.0) mmol/L Calcium (8.4-10.2) mg/dL Total Bilirubin (0.2-1.3) mg/dL Conjugated Bilirubin (0.0-0.3) mg/dL Unconjugated Bilirubin (0.0-1.1) mg/dL Delta Bilirubin (0.0-0.2) mg/dL AST (14-36) U/L ALT (4-34) U/L Ammonia (<30) umol/L Total Protein (6.3-8.2) g/dL Albumin (3.5-5.0) g/dL 10/09/22 10/10/22 10/10/22 Range/Units 23:28 04:30 04:30 RBC 1.75 L (3.80-5.40) m/uL Hgb 8.3 L (11.4-16.0) gm/dL Hct 23.1 L (34.0-46.0) % MCV 132.4 H (80.0-100.0) fL MCH 47.5 H (25.0-35.0) pg RDW 17.8 H (11.5-15.5) % Plt Count 51 L (150-450) k/uL Macrocytosis Marked A PT (9.0-12.0) sec INR (<1.2) ABG pH (7.35-7.45) ABG pCO2 (35-45) mmHg ABG HCO3 (21-25) mmol/L ABG Total CO2 (19-24) mmol/L ABG O2 Saturation (94-97) % Chloride (98-107) mmol/L Carbon Dioxide (22-30) mmol/L BUN (7-17) mg/dL Creatinine (0.52-1.04) mg/dL Glucose (74-99) mg/dL POC Glucose (mg/dL) 111 H (70-110) mg/dL Plasma Lactic Acid Paulino (0.7-2.0) mmol/L Calcium (8.4-10.2) mg/dL Total Bilirubin (0.2-1.3) mg/dL Conjugated Bilirubin (0.0-0.3) mg/dL Unconjugated Bilirubin (0.0-1.1) mg/dL Delta Bilirubin (0.0-0.2) mg/dL AST (14-36) U/L ALT (4-34) U/L Ammonia 85 H (<30) umol/L Total Protein (6.3-8.2) g/dL Albumin (3.5-5.0) g/dL 10/10/22 10/10/22 10/10/22 Range/Units 04:30 06:04 07:10 RBC (3.80-5.40) m/uL Hgb (11.4-16.0) gm/dL Hct (34.0-46.0) % MCV (80.0-100.0) fL MCH (25.0-35.0) pg RDW (11.5-15.5) % Plt Count (150-450) k/uL Macrocytosis PT 21.2 H (9.0-12.0) sec INR 2.2 H (<1.2) ABG pH 7.33 L (7.35-7.45) ABG pCO2 32 L (35-45) mmHg ABG HCO3 17 L (21-25) mmol/L ABG Total CO2 18 L (19-24) mmol/L ABG O2 Saturation 97.4 H (94-97) % Chloride 110 H (98-107) mmol/L Carbon Dioxide 14 L (22-30) mmol/L BUN 20 H (7-17) mg/dL Creatinine 1.77 H (0.52-1.04) mg/dL Glucose 107 H (74-99) mg/dL POC Glucose (mg/dL) (70-110) mg/dL Plasma Lactic Acid Paulino (0.7-2.0) mmol/L Calcium 6.7 L (8.4-10.2) mg/dL Total Bilirubin 6.4 H (0.2-1.3) mg/dL Conjugated Bilirubin (0.0-0.3) mg/dL Unconjugated Bilirubin (0.0-1.1) mg/dL Delta Bilirubin (0.0-0.2) mg/dL AST 424 H (14-36) U/L ALT 64 H (4-34) U/L Ammonia (<30) umol/L Total Protein 5.3 L (6.3-8.2) g/dL Albumin 2.2 L (3.5-5.0) g/dL 10/10/22 Range/Units 11:54 RBC (3.80-5.40) m/uL Hgb (11.4-16.0) gm/dL Hct (34.0-46.0) % MCV (80.0-100.0) fL MCH (25.0-35.0) pg RDW (11.5-15.5) % Plt Count (150-450) k/uL Macrocytosis PT (9.0-12.0) sec INR (<1.2) ABG pH (7.35-7.45) ABG pCO2 (35-45) mmHg ABG HCO3 (21-25) mmol/L ABG Total CO2 (19-24) mmol/L ABG O2 Saturation (94-97) % Chloride (98-107) mmol/L Carbon Dioxide (22-30) mmol/L BUN (7-17) mg/dL Creatinine (0.52-1.04) mg/dL Glucose (74-99) mg/dL POC Glucose (mg/dL) 225 H (70-110) mg/dL Plasma Lactic Acid Paulino (0.7-2.0) mmol/L Calcium (8.4-10.2) mg/dL Total Bilirubin (0.2-1.3) mg/dL Conjugated Bilirubin (0.0-0.3) mg/dL Unconjugated Bilirubin (0.0-1.1) mg/dL Delta Bilirubin (0.0-0.2) mg/dL AST (14-36) U/L ALT (4-34) U/L Ammonia (<30) umol/L Total Protein (6.3-8.2) g/dL Albumin (3.5-5.0) g/dL Microbiology - Last 24 Hours (Table) 10/09/22 01:00 Blood Culture Gram Stain - Preliminary Blood Blood Culture - Preliminary Escherichia coli Staphylococcus aureus Streptococcus species 10/09/22 00:23 Gram Stain - Preliminary Sputum Sputum Culture - Preliminary Presumptive Staph aureus 10/09/22 01:30 Blood Culture - Preliminary Blood No Growth after 24 hours 10/09/22 01:00 Blood Culture - Final Blood Assessment and Plan (1) Sepsis Current Visit: Yes Status: Acute Code(s): A41.9 - SEPSIS, UNSPECIFIED ORGANISM SNOMED Code(s): 63287586 Plan: 1patient was in the hospital with sepsis/septic shock in this patient who did have a fever hypotension elevated lactic acid source could be abdominal and there was evidence of some pericholecystic fluid on the ultrasound and possible component of pneumonia many to cover for the gram-positive as well as gram- negative pathogen 2-patient with cephalexin allergy that would limit the number of antibiotics safe to use 3-the patient sputum for Gram stain and culture are currently pending, blood culture showing MRSA and gram-negative 4-patient to continue with the vancomycin and meropenem to 1 g every 8 hours while waiting for the cultures to finalize overall prognosis remains to be guarded Time with Patient: Less than 30
[2022-10-10] MEDS: LACTULOSE 20 GM/30 ML CUP PO SCH ×2 (16:07→20:05)
[2022-10-10 17:54] LABS: Glucose,Whole Blood 224 mg/dL (70-110)
[2022-10-10] MEDS ORDERED: DEXTROSE 50% SYRINGE 50 ML IVP PRN ×2 (18:03)
[2022-10-10] MEDS: INSULIN ASPART (NovoLOG) 100 UNIT/ML VIAL SQ SCH ×2 (18:13→23:29)
[2022-10-10] MEDS: INSULIN DETEMIR (LEVEMIR) 100 UNIT/ML SYR SQ SCH (20:43)
[2022-10-10 20:46] LABS: Glucose,Whole Blood 212 mg/dL (70-110)
[2022-10-10 23:31] LABS: Glucose,Whole Blood 190 mg/dL (70-110)
[2022-10-11] MEDS: 0.9% NACL WITH KCL 20 MEQ/L 1,000 ML IV SCH (01:38)
[2022-10-11] MEDS: NOREPINEPHRINE 4 MG in SODIUM CHLORIDE 0.9% 250 ML IV SCH ×3 (01:39→21:30)
[2022-10-11] MEDS: MIDAZOLAM HCL 50 MG in SODIUM CHLORIDE 0.9% 40 ML IV SCH (03:22)
[2022-10-11] MEDS: IPRATROPIUM-ALBUTEROL 3 ML NEB INHALATION SCH ×5 (04:33→20:06)
[2022-10-11 05:17] LABS: Glucose,Whole Blood 168 mg/dL (70-110)
[2022-10-11] MEDS: INSULIN ASPART (NovoLOG) 100 UNIT/ML VIAL SQ SCH ×4 (05:33→23:44)
[2022-10-11 05:35] LABS: ABG HCO3 21 mmol/L (21-25); ABG PCO2 40 mmHg (35-45); ABG PH 7.33 (7.35-7.45); ABG TCO2 22 mmol/L (19-24); Allen Test Performed? Yes
[2022-10-11 06:07] LABS: ABG PO2 59 mmHg (83-108)
[2022-10-11 06:08] LABS: ABG Oxygen Saturation 88.2 % (94-97)
[2022-10-11 07:18] LABS: Anisocytosis Slight; Basophils % (A) 0 %; Eosinophils # (A) 0.1 k/uL (0-0.7); Eosinophils % (A) 2 %; HCT 22.1 % (34.0-46.0); Hypochromasia Moderate; Lymphocytes # (A) 0.7 k/uL (1.0-4.8); Lymphocytes % (A) 15 %; MCV 131.4 fL (80.0-100.0); Macrocytosis Marked; Mean Platelet Volume 10.9; Monocytes # (A) 0.2 k/uL (0-1.0); Monocytes % (A) 5 %; Neutrophils # (A) 3.5 k/uL (1.3-7.7); Neutrophils % (A) 76 %; RBC 1.68 m/uL (3.80-5.40); RDW 17.8 % (11.5-15.5); WBC 4.6 k/uL (3.8-10.6)
[2022-10-11 07:25] LABS: MCHC 30.6 g/dL (31.0-37.0)
[2022-10-11 07:28] LABS: HGB 6.8 gm/dL (11.4-16.0); Platelet Count 28 k/uL (150-450)
--- NOTE | 2022-10-11 08:06 | XR ---
EXAMINATION TYPE: XR chest 1V portable DATE OF EXAM: 10/11/2022 COMPARISON: [id number] HISTORY: SOB, Follow Up FINDINGS: Indwelling tubes and catheters are unchanged. Airspace consolidation left lower lobe with air bronchograms redemonstrated. There are more diffuse i nfiltrates throughout both lung toro with groundglass appearance although the degree of inspiration is limiting. Stable appearance of the cardio-mediastinal structures at this time. IMPRESSION: 1. Airspace consolidation left lower lobe with air bronchograms redemonstrated. There are more diffu se infiltrates throughout both lung toro with groundglass appearance although the degree of inspira tion is limiting.
[2022-10-11 08:10] LABS: Albumin 2.1 g/dL (3.5-5.0); Potassium 2.8 mmol/L (3.5-5.1); Total Protein 5.2 g/dL (6.3-8.2)
[2022-10-11] MEDS: DEXTROSE 5% IN WATER 1,000 ML with SODIUM BICARB (1 MEQ/ML) 150 ML IV SCH (08:22)
[2022-10-11] MEDS: PANTOPRAZOLE 40 MG/10 ML VIAL IV SCH ×2 (08:22→21:18)
[2022-10-11] MEDS: MEROPENEM 1 GM in SODIUM CHLORIDE 0.9% 100 ML IVPB SCH ×2 (08:22→16:21)
[2022-10-11 08:24] LABS: Anisocytosis Slight; Basophils % (A) 0 %; Eosinophils # (A) 0.1 k/uL (0-0.7); Eosinophils % (A) 2 %; HCT 20.6 % (34.0-46.0); Hypochromasia Moderate; Lymphocytes # (A) 0.6 k/uL (1.0-4.8); Lymphocytes % (A) 15 %; MCHC 32.7 g/dL (31.0-37.0); Macrocytosis Marked; Mean Platelet Volume 9.9; Monocytes # (A) 0.2 k/uL (0-1.0); Monocytes % (A) 6 %; Neutrophils # (A) 2.9 k/uL (1.3-7.7); Neutrophils % (A) 75 %; RBC 1.56 m/uL (3.80-5.40); RDW 17.5 % (11.5-15.5); WBC 3.9 k/uL (3.8-10.6)
[2022-10-11 09:01] LABS: HGB 6.8 gm/dL (11.4-16.0)
[2022-10-11 09:04] LABS: Platelet Count 24 k/uL (150-450)
[2022-10-11 09:06] LABS: MCH 43.3 pg (25.0-35.0); MCV 132.3 fL (80.0-100.0)
[2022-10-11] MEDS: LACTULOSE 20 GM/30 ML CUP PO SCH ×3 (09:08→21:28)
[2022-10-11] MEDS: POTASSIUM BICARBONATE/CIT AC 20 MEQ TABLET.EFF NG-TUBE SCH ×3 (09:09→10:51)
[2022-10-11] MEDS: RIFAXIMIN 550 MG TABLET PO SCH ×2 (09:09→21:28)
[2022-10-11] MEDS: THIAMINE 100 MG TAB PO SCH (09:09)
[2022-10-11] MEDS ORDERED: FUROSEMIDE 10 MG/ML 4 ML VIAL IV STA (09:16)
[2022-10-11] MEDS: CHLORHEXIDINE GLUCONATE 15 ML CUP MUCOUS MEM SCH ×2 (09:34→21:19)
--- NOTE | 2022-10-11 10:02 | CA ---
Transthoracic Echo Report Name: Margie Wilson Age: 42 Gender: F : 1980 Exam Date: 10/10/2022 13:14 Exam Location: [facility] Ht (in): 65 Wt (lb): 149 Ordering Physician: Laureano Trejo MD Attending/Referring Phys: It Lead Maribel Weber RDCS Procedure CPT: Indications: cardiomyopathy? Cardiac Hx: tachycardia Technical Quality: Fair Contrast 1: Total Dose (mL): Contrast 2: Total Dose (mL): MEASUREMENTS (Male / Female) Normal Values 2D ECHO LV Diastolic Diameter PLAX 4.8 cm 4.2 - 5.9 / 3.9 - 5.3 cm LV Systolic Diameter PLAX 3.3 cm IVS Diastolic Thickness 0.9 cm 0.6 - 1.0 / 0.6 - 0.9 cm LVPW Diastolic Thickness 0.8 cm 0.6 - 1.0 / 0.6 - 0.9 cm LV Relative Wall Thickness 0.4 RV Internal Dim ED PLAX 2.9 cm LA Systolic Diameter LX 3.1 cm 3.0 - 4.0 / 2.7 - 3.8 cm LA Volume 32.7 cm??? 18 - 58 / 22 - 52 cm??? M-MODE Aortic Root Diameter MM 2.8 cm MV E Point Septal Separation 0.4 cm AV Cusp Separation MM 1.9 cm DOPPLER AV Peak Velocity 194.5 cm/s AV Peak Gradient 15.1 mmHg MV Area PHT 4.0 cm??? Mitral E Point Velocity 114.9 cm/s Mitral A Point Velocity 105.2 cm/s Mitral E to A Ratio 1.1 MV Deceleration Time 189.3 ms MV E' Velocity 12.4 cm/s Mitral E to MV E' Ratio 9.3 TR Peak Velocity 208.6 cm/s TR Peak Gradient 17.4 mmHg Right Ventricular Systolic Press 22.4 mmHg FINDINGS Left Ventricle Left ventricular ejection fraction is estimated at 55-60 %. Left ventricular cavity size normal. Left ventricular wall thickness normal. Right Ventricle Normal right ventricular size and function. Right ventricular systolic pressure within normal limits. Right Atrium Normal right atrial size. Left Atrium Normal left atrial size. Mitral Valve Structurally normal mitral valve. No mitral stenosis, regurgitation or prolapse. Aortic Valve Trileaflet aortic valve. No aortic valve stenosis or regurgitation. Tricuspid Valve Structurally normal tricuspid valve. Trace to mild tricuspid regurgitation. Pulmonic Valve Structurally normal pulmonic valve. No pulmonic regurgitation. Pericardium Normal pericardium. No pericardial effusion. Aorta Normal size aortic root and proximal ascending aorta. CONCLUSIONS Normal LV size and systolic function. Doppler exam is suboptimal but no significant abnormalities no pericardial effusion Previewed by: Dr. Negrito Millan MD (Electronically Signed) Final Date: 11 October 2022 10:01
[2022-10-11] MEDS: FUROSEMIDE 10 MG/ML 10 ML VIAL IV STA ×2 (10:10→11:47)
--- NOTE | 2022-10-11 10:34 | P.NPCON ---
History of Present Illness - Reason for Consult acute renal failure - History of Present Illness Reason for consult: Acute kidney injury History of present illness: Patient is a 42-year-old female seen in renal consultation for acute kidney injury. Patient's creatinine on admission was 0.94 and is up to 2.01 today. Urine output has been 15-20 mL an hour. Patient is currently intubated. She is on Levophed as well as vasopressin. She was receiving bicarb drip as well as normal saline but normal saline was discontinued this morning. Patient presented to the hospital on 10/08/2022 with altered mental status. 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 Patient has received 4 L of normal saline since admission. She is currently on IV antibiotics for possible pneumonia. Sputum culture positive for MRSA. Blood culture positive for E. coli, staph aureus as well as Streptococcus. I don't see any nonsteroidals in her home medication list. She is receiving tube feeds. Patient did receive IV contrast for CAT scan on 10/08/2022 showed no evidence of hydronephrosis. Vital signs are stable. On vasopressor support. General: Resting in bed. HEENT: Intubated. On 50% FiO2. LUNGS: Scattered rhonchi. HEART: Tachycardic. ABDOMEN: No distention. EXTREMITITES: No edema. Past Medical History Past Medical History: GERD/Reflux Additional Past Medical History / Comment(s): Hepatic steatosis, ETOH abuse, gastritis, duodenitis, lower GI bleed, colitis, hemorrhoids, bronchitis, R side nephrolithiasis with surgery, bilateral ovarian cysts, neuropathy bilateral hands/legs and tops of both feet, hypokalemia, hypoalbumenemia, pancytopenia. History of Any Multi-Drug Resistant Organisms: None Reported Past Surgical History: Appendectomy, Orthopedic Surgery Additional Past Surgical History / Comment(s): Left knee surgeries-3 arthroscopic and one open, EGDs, colonoscopies, R sided lithotripsy. Past Anesthesia/Blood Transfusion Reactions: No Reported Reaction Additional Past Anesthesia/Blood Transfusion Reaction / Comment(s): Pt has received blood in past without reaction. Past Psychological History: Depression Smoking Status: Current every day smoker Past Alcohol Use History: Daily Past Drug Use History: Marijuana - Past Family History Mother Family Medical History: Diabetes Mellitus Additional Family Medical History / Comment(s): Borderline HTN Brother(s) Family Medical History: Diabetes Mellitus Father Family Medical History: Hypertension Additional Family Medical History / Comment(s): BOARDERLINE DM Medications and Allergies Home Medications Medication Instructions Recorded Confirmed Type Acetaminophen Tab [Tylenol] 650 mg PO Q6H PRN 06/18/22 10/08/22 History Loperamide HCl [Imodium A-D] 2 - 4 mg PO BID PRN 06/18/22 10/08/22 History Allergies Allergy/AdvReac Type Severity Reaction Status Date / Time cephalexin monohydrate Allergy Rash/Hives Verified 10/08/22 21:13 [From Keflex] codeine Allergy Rash/Hives Verified 10/08/22 21:13 Physical Exam Vitals: Vital Signs Temp Pulse Resp BP Pulse Ox FiO2 10/11/22 07:58 115 H 10/11/22 07:44 115 H 10/11/22 07:35 50 10/11/22 07:00 117 H 24 92 L 10/11/22 06:45 117 H 24 93 L 10/11/22 06:30 117 H 24 92 L 10/11/22 06:15 117 H 24 92 L 10/11/22 06:00 116 H 24 93 L 10/11/22 05:45 117 H 24 92 L 10/11/22 05:30 116 H 24 92 L 10/11/22 05:15 117 H 24 92 L 10/11/22 05:00 117 H 24 91 L 10/11/22 04:50 118 H 10/11/22 04:45 117 H 24 97 10/11/22 04:34 116 H 10/11/22 04:30 117 H 24 92 L 10/11/22 04:29 50 10/11/22 04:15 118 H 24 93 L 10/11/22 04:00 98.0 F 120 H 24 115/52 92 L 50 10/11/22 03:45 121 H 24 115/52 92 L 10/11/22 03:35 50 10/11/22 03:30 122 H 24 115/52 92 L 10/11/22 03:15 122 H 24 115/52 91 L 10/11/22 03:00 118 H 24 115/52 90 L 50 10/11/22 02:45 121 H 24 92 L 10/11/22 02:30 121 H 24 92 L 10/11/22 02:15 122 H 24 92 L 10/11/22 02:00 122 H 24 92 L 10/11/22 01:45 122 H 24 92 L 10/11/22 01:30 122 H 24 92 L 10/11/22 01:15 122 H 24 92 L 10/11/22 01:00 122 H 24 92 L 50 10/11/22 00:45 122 H 24 91 L 10/11/22 00:30 122 H 24 92 L 10/11/22 00:15 122 H 24 91 L 10/11/22 00:00 97.8 F 122 H 24 92 L 10/10/22 23:49 50 10/10/22 23:48 50 10/10/22 23:45 122 H 24 95 10/10/22 23:42 50 10/10/22 23:30 123 H 24 95 10/10/22 23:15 123 H 24 95 10/10/22 23:00 124 H 24 118/56 95 10/10/22 22:45 124 H 24 118/56 95 10/10/22 22:38 124 H 24 121/55 95 10/10/22 22:30 124 H 24 95 10/10/22 22:15 125 H 24 95 10/10/22 22:00 126 H 24 95 60 10/10/22 21:45 126 H 24 88 L 10/10/22 21:30 121/55 89 L 10/10/22 21:19 128 H 10/10/22 21:15 128 H 24 121/55 94 L 10/10/22 21:08 126 H 10/10/22 21:03 60 10/10/22 21:00 126 H 24 121/55 91 L 10/10/22 20:45 126 H 24 121/55 91 L 10/10/22 20:30 126 H 24 121/55 93 L 10/10/22 20:15 125 H 24 121/55 91 L 10/10/22 20:00 98.7 F 125 H 24 110/52 92 L 60 10/10/22 19:45 124 H 24 110/52 92 L 10/10/22 19:42 50 10/10/22 19:30 125 H 24 110/52 92 L 10/10/22 19:15 124 H 24 110/52 92 L 10/10/22 19:00 123 H 24 91 L 60 10/10/22 18:45 122 H 24 92 L 10/10/22 18:30 122 H 24 93 L 10/10/22 18:15 122 H 24 92 L 10/10/22 18:00 122 H 24 92 L 10/10/22 17:45 123 H 24 92 L 10/10/22 17:30 123 H 24 93 L 10/10/22 17:15 125 H 24 92 L 10/10/22 17:00 124 H 24 93 L 10/10/22 16:45 124 H 24 93 L 10/10/22 16:30 125 H 24 92 L 10/10/22 16:15 124 H 24 93 L 10/10/22 16:00 98.1 F 124 H 24 92 L 60 10/10/22 15:48 120 H 20 10/10/22 15:45 118 H 24 96 10/10/22 15:38 116 H 20 10/10/22 15:30 117 H 24 93 L 10/10/22 15:16 50 10/10/22 15:15 118 H 24 98/44 88 L 10/10/22 15:00 118 H 24 88 L 10/10/22 14:45 118 H 24 90 L 50 10/10/22 14:30 118 H 24 89 L 10/10/22 14:15 118 H 24 90 L 10/10/22 14:00 120 H 24 90 L 10/10/22 13:45 120 H 24 90 L 10/10/22 13:30 121 H 24 90 L 10/10/22 13:15 121 H 24 92 L 10/10/22 13:00 121 H 24 91 L 10/10/22 12:45 122 H 24 91 L 10/10/22 12:30 123 H 24 92 L 10/10/22 12:15 124 H 24 92 L 10/10/22 12:00 98.6 F 123 H 24 92 L 10/10/22 11:45 124 H 24 91 L 10/10/22 11:44 50 10/10/22 11:40 120 H 20 10/10/22 11:30 125 H 24 92 L 10/10/22 11:28 125 H 22 10/10/22 11:15 128 H 24 92 L 10/10/22 11:12 50 10/10/22 11:08 50 10/10/22 11:00 129 H 24 91 L 10/10/22 10:45 131 H 24 91 L 10/10/22 10:30 133 H 24 90 L Intake and Output 10/10/22 10/11/22 10/11/22 22:59 06:59 14:59 Intake Total 2150.828 2003.680 225.711 Output Total 138 450 15 Balance 2012.828 1553.680 210.711 Intake: IV 1137 1024 128 0.9% NaCl with KCl 20 Meq 675 600 75 /l 1,000 ml @ 75 mls/hr IV .[id number] [facility] Rx#: [id number] Dextrose 5% in Water 1, 450 400 50 000 ml @ 50 mls/hr IV . Q23H [facility] with Sodium Bicarb (1 Meq/ml) 150 ml Rx#:[id number] pressure bag 12 24 3 Intake, IV Titration 596.828 635.680 24.711 Amount Midazolam HCl 50 mg In 43.267 43.733 23.2 Sodium Chloride 0.9% 40 ml @ 2 MG/HR 2 mls/hr IV .Q24H [facility] Rx#:[id number] Norepinephrine 4 mg In 453.561 401.114 1.511 Sodium Chloride 0.9% 250 ml @ 0.03 MCG/KG/MIN 7. 777 mls/hr IV .Q24H [facility] Rx#:[id number] propofoL 1,000 mg In 100 190.833 Empty Bag 1 bag @ 15 MCG/ KG/MIN 6.124 mls/hr IV . [id number] [facility] Rx#:[id number] Tube Feeding 387 344 43 Other 30 30 Output: Urine 138 150 15 Stool 300 Other: Voiding Method Indwelling Catheter Indwelling Catheter Weight 73.1 kg ABP, PAP, CO, CI - Last 8 Hours Arterial Blood Pressure 125/43 Arterial Blood Pressure 126/44 Arterial Blood Pressure 131/44 Arterial Blood Pressure 134/45 Arterial Blood Pressure 133/47 Arterial Blood Pressure 128/47 Arterial Blood Pressure 124/48 Arterial Blood Pressure 117/46 Arterial Blood Pressure 118/46 Arterial Blood Pressure 115/45 Arterial Blood Pressure 114/44 Arterial Blood Pressure 114/44 Arterial Blood Pressure 116/44 Arterial Blood Pressure 113/41 Arterial Blood Pressure 111/40 Arterial Blood Pressure 105/45 Arterial Blood Pressure 112/44 Arterial Blood Pressure 112/42 Results - Lab Results Most recent lab results ABG pH 7.33 (7.35-7.45) L 10/11/22 05:24 ABG pCO2 40 mmHg (35-45) 10/11/22 05:24 ABG pO2 59 mmHg (83-108) L* 10/11/22 05:24 ABG HCO3 21 mmol/L (21-25) 10/11/22 05:24 ABG O2 Saturation 88.2 % (94-97) L 10/11/22 05:24 Calcium 7.0 mg/dL (8.4-10.2) L 10/11/22 06:15 10/11/22 08:09 10/11/22 06:15 Assessment and Plan Plan: Assessment: 1. Acute kidney injury secondary to ATN secondary to septic shock. Also r eceived IV contrast on 10/08/2022. Creatinine 0.94 on admission and is 2.01 today. Urine output 15-20 mL an hour. No hydronephrosis noted on CAT scan. 2. Septic shock secondary to pneumonia and E. coli, staph and strep bacteremia. On antibiotics and vasopressors. 3. Acute blood loss anemia. Scheduled to receive a unit of blood today. 4. Metabolic acidosis secondary to acute kidney injury and lactic acidosis. On bicarb drip. Improving. 5. Hypokalemia from intracellular shifting from IV bicarb. 6. Alcohol liver disease. 7. Mild hypernatremia from lack of oral water intake. Plan: Maintain bicarb drip. Receiving tube feeds. Water flushes 200 mL every 6 hours started today. Status post 80 mg IV Lasix this morning. Potassium being replaced. Check magnesium level. Continue to monitor renal function and urine output. Continue to assess daily for need for renal replacement therapy. Thank you for the consultation. I will continue to follow the patient with you during her hospital stay.
[2022-10-11] MEDS ORDERED: Potassium Replacement Protocol 1 EACH MISC MISCELLANE PRN (11:15)
[2022-10-11 11:36] LABS: C Reactive Protein 20.1 mg/dL (<1.0)
[2022-10-11 11:38] LABS: Vancomycin,Random 67.5 ug/mL
[2022-10-11] MEDS: POTASSIUM CHLORIDE 20 MEQ in WATER FOR INJECTION 1 100ML.BAG IVPB SCH ×3 (11:48→14:27)
[2022-10-11 12:05] LABS: Glucose,Whole Blood 143 mg/dL (70-110)
--- NOTE | 2022-10-11 12:16 | P.PN ---
Subjective Progress Note Date: 10/11/22 Principal diagnosis: , acute hypoxic respiratory failure secondary to pneumonia, sepsis, and possible aspiration. I am seeing this patient in new consultation today 10/09/2022 in regard to ICU management. Patient is a 42-year-old white female with past medical history significant for alcoholic liver diseas alcohol abuse, and suspected polysubstance abuse. Patient initially presented to the emergency room with family for new onset altered mental status yesterday evening. Family also reports that the patient has been coughing. Her last alcoholic drink was Saturday night. There is also concern for alcohol withdrawal. Patient is jaundiced. On top of these concerns, patient was found to be hypotensive and tachycardic on arrival to the emergency room. She is also febrile. Chest x-ray on arrival showed multifocal airspace opacities. A follow-up CT of the chest abdomen and pelvis with contrast redemonstrated the multifocal skilled scattered airspace opacities with concern for possible pneumonia, there were concerns about wedge- shape of the opacities and we will correlate with d-dimer, hepatic steatosis with hepatomegaly, nondistended large bowel with suspected pseudo-wall thickening and submucosal fat deposition which could correlate with colitis, and hyperemic gastric mucosa which could correlate for gastritis. Nonenhanced brain CT showed no acute intracranial process. Apparently, the patient became agitated in the emergency room. This agitation was treated with Ativan, and then patient became unresponsive. Emergency room physician intubated the patient to ultimately protect her airway. Preintubation ABG showed a pO2 of 72, pCO2 31, pH of 7.39. The patient is currently on mechanical ventilator settings AC, respiratory rate 24, tidal volume 400, FiO2 100%, PEEP of 5. Post-intubation chest x-ray shows the tip of the ET tube 2 centimeters from the norberto, with an NG tube coursing below the diaphragm. Patient's hypotension has been treated with 3 crystalloid boluses, and the patient has required a norepinephrine infusion currently infusing at 0.08 mics per kilogram per minute through a right femoral central line. Propofol is infusing at 5 mics per per kg per minute. The patient is calm and synchronous with mechanical ventilator at this time. Patient also has normal saline infusing at 100 mL per hour. Patient's CBC on arrival showed a WBC count of 7.7, hemoglobin 8.9, hematocrit 26.7, platelet count 67,000. Coagulation profile was abnormal with an INR 3.8. No evidence of acute bleed. CMP on arrival showed a sodium 132, potassium 4, chloride 93, serum CO2 21, B1 12, creatinine 0.94, glucose 66. Hypoglycemia was corrected and is currently 137 mg/dL. Patient's ammonia level was elevated at 69 and she is receiving lactulose. Lactic acid was elevated at 10.4. LFTs are elevated AST 153, ALT 98, and alkaline phosphatase 129. Patient has a gallbladder ultrasound pending. At this time it is unknown if the patient ingested other substances as she has a history of polysubstance abuse. A urine toxicology screen has been ordered. Pancultures are pending. Patient is currently empirically covered with meropenem and vancomycin. Patient is febrile with a T- max of 100.1F. Patient was negative for influenza, RSV, COVID-19. Patient's condition at this time is critical. Patient is a full code. Patient was reevaluated today on 10/10/2022, remains in the ICU, intubated and mechanically ventilated. He is on assist control rate of 24th of 400 FiO2 50% and PEEP of 8 ABG showed a pO2 of 94 pCO2 32 pH of 7.33. Hemoglobin is 8.3 INR is 2.2. Endotracheal tube is noted to be distal in the trachea, and this will be pulled back about 1.5 cm. Patient remains on D5 45 at 50 mL per hour, is also on propofol at 75 norepinephrine at 0.06 vasopressin at 0.03 and fentanyl, patient is receiving enteral feeding. She is on vital HPI at 30 mL per hour, chest x-ray continues to show an infiltrate in the left lower lobe and right lower lobe endotracheal tube was noted to be relatively close to the norberto and this will be adjusted., sputum Gram stain is positive for presumptive staph aureus, final report is pending, patient remains on Merrem and vancomycin in the meantime Reevaluated today on 04/12/2023, patient remains in the ICU, intubated and mechanically ventilated. She is now on assist control rate of 24th of volume 400 FiO2 50% PEEP of 8 and a increased the PEEP to 10. ABG showed a pO2 of 59 pCO2 40 pH of 7.33. Patient is receiving a unit of packed RBC this morning for hemoglobin of 6.8. Her renal functioning seems to be deteriorating and worsening creatinine is up to 2.01. Liver enzymes remain elevated. Ammonia level is pending. Nephrology was consulted for her acute kidney injury, diabete s concern is the patient developing acute hepatorenal syndrome. Urine output remains marginal, Lasix was ordered to be given 1. Her IV fluid is Down to KVO, remains on sodium bicarb drip. Patient remains on norepinephrine at 0.12 she is also on Versed 3 mg/h, and propofol at 75 mcg/kg/m. 0.9 normal saline at 75 mL/h this will be cut down to KVO, and Lasix will be given. Chest x-ray is showing worsening in her consolidation in the left lower lobe, and I suspect there may be a component of groundglass appearance suggestive of mild interstitial edema and fluid overload. WBC count is 3.9 hemoglobin 6.8. Electrolytes are abnormal with sodium 145 potassium 2.8 bicarb is 20 BUN is 49 and creatinine 2.0 1 repeat ammonia level today is 89, remains quite elevated, patient is on lactulose and she is also on rifaximin. Objective - Vital Signs Vital signs: Vital Signs Temp 98.2 F 10/11/22 08:30 Pulse 113 H 10/11/22 11:18 Resp 24 10/11/22 10:30 BP 111/54 10/11/22 10:30 Pulse Ox 91 L 10/11/22 10:30 FiO2 50 10/11/22 11:00 Intake & Output 10/10/22 10/11/22 10/11/22 18:59 06:59 18:59 Intake Total 3000.839 3209.680 323.926 Output Total 170 528 15 Balance 2830.839 2681.680 308.926 Weight 73.1 kg Intake: IV 1375 1661 128 0.9% NaCl with KCl 20 Meq 825 975 75 /l 1,000 ml @ 75 mls/hr IV .[id number] FUENTES Rx#: [id number] Dextrose 5% in Water 1, 450 650 50 000 ml @ 50 mls/hr IV . Q23H [facility]UENTES with Sodium Bicarb (1 Meq/ml) 150 ml Rx#:[id number] Meropenem 2 gm In Sodium 100 Chloride 0.9% 100 ml @ 33 .3 mls/hr IVPB Q8H [facility] Rx #:[id number] pressure bag 36 3 Intake, IV Titration 853.839 989.680 122.926 Amount Midazolam HCl 50 mg In 43.267 43.733 23.2 Sodium Chloride 0.9% 40 ml @ 2 MG/HR 2 mls/hr IV .Q24H [facility]UENTES Rx#:[id number] Norepinephrine 4 mg In 508.000 655.114 1.511 Sodium Chloride 0.9% 250 ml @ 0.03 MCG/KG/MIN 7. 777 mls/hr IV .Q24H [facility]UENTES Rx#:[id number] Vasopressin 60 unit In 115.821 Sodium Chloride 0.9% 150 ml @ 0.03 UNITS/MIN 4.59 mls/hr IV .Q24H [facility]UENTES Rx#: [id number] propofoL 1,000 mg In 186.751 290.833 98.215 Empty Bag 1 bag @ 15 MCG/ KG/MIN 6.124 mls/hr IV . [id number] [facility]ENTES Rx#:[id number] Oral 300 Tube Feeding 382 559 43 Other 90 30 Output: Urine 170 228 15 Stool 300 Other: Voiding Method Indwelling Catheter Indwelling Catheter # Bowel Movements 1 ABP, PAP, CO, CI - Last Documented Arterial Blood Pressure 114/42 - Exam Physical Exam: Revealed 42-year-old female sedated, mechanically ventilated, in no distress. Head: Atraumatic, normocephalic. HEENT:[Neck is supple.] [No neck masses.] [No thyromegaly.] [No JVD.]positive jaundice. Chest: [symmetrical chest expansion, rhonchi and crackles noted bilaterally. Cardiac Exam: [Normal S1 and S2, no S3 gallop, no murmur.] Abdomen: [Soft,small ascites palpable. nontender, no megaly, no rebound, no guarding, normal bowel sounds.] Extremities: [No clubbing, 1+ bipedal edema, no cyanosis.] Neurological Exam:could not be assessed patient is sedated. Psychiatric: Could not assess. - Labs CBC & Chem 7: 10/11/22 08:09 10/11/22 06:15 Labs: Abnormal Lab Results - Last 24 Hours (Table) 10/10/22 10/10/22 10/10/22 Range/Units 08:49 17:53 20:30 RBC (3.80-5.40) m/uL Hgb (11.4-16.0) gm/dL Hct (34.0-46.0) % MCV (80.0-100.0) fL MCH (25.0-35.0) pg MCHC (31.0-37.0) g/dL RDW (11.5-15.5) % Plt Count (150-450) k/uL Macrocytosis ABG pH (7.35-7.45) ABG pO2 (83-108) mmHg ABG O2 Saturation (94-97) % Potassium (3.5-5.1) mmol/L Chloride (98-107) mmol/L Carbon Dioxide (22-30) mmol/L BUN (7-17) mg/dL Creatinine (0.52-1.04) mg/dL Glucose (74-99) mg/dL POC Glucose (mg/dL) 224 H 212 H (70-110) mg/dL Calcium (8.4-10.2) mg/dL Total Bilirubin (0.2-1.3) mg/dL AST (14-36) U/L ALT (4-34) U/L Ammonia (<30) umol/L C-Reactive Protein (<1.0) mg/dL Total Protein (6.3-8.2) g/dL Albumin (3.5-5.0) g/dL Vancomycin Trough 74.3 H* ug/mL Random Vancomycin ug/mL Crossmatch 10/10/22 10/11/22 10/11/22 Range/Units 23:12 05:14 05:24 RBC (3.80-5.40) m/uL Hgb (11.4-16.0) gm/dL Hct (34.0-46.0) % MCV (80.0-100.0) fL MCH (25.0-35.0) pg MCHC (31.0-37.0) g/dL RDW (11.5-15.5) % Plt Count (150-450) k/uL Macrocytosis ABG pH 7.33 L (7.35-7.45) ABG pO2 59 L* (83-108) mmHg ABG O2 Saturation 88.2 L (94-97) % Potassium (3.5-5.1) mmol/L Chloride (98-107) mmol/L Carbon Dioxide (22-30) mmol/L BUN (7-17) mg/dL Creatinine (0.52-1.04) mg/dL Glucose (74-99) mg/dL POC Glucose (mg/dL) 190 H 168 H (70-110) mg/dL Calcium (8.4-10.2) mg/dL Total Bilirubin (0.2-1.3) mg/dL AST (14-36) U/L ALT (4-34) U/L Ammonia (<30) umol/L C-Reactive Protein (<1.0) mg/dL Total Protein (6.3-8.2) g/dL Albumin (3.5-5.0) g/dL Vancomycin Trough ug/mL Random Vancomycin ug/mL Crossmatch 10/11/22 10/11/22 10/11/22 Range/Units 06:15 06:15 08:09 RBC 1.68 L (3.80-5.40) m/uL Hgb 6.8 L* D (11.4-16.0) gm/dL Hct 22.1 L (34.0-46.0) % MCV 131.4 H (80.0-100.0) fL MCH 40.0 H (25.0-35.0) pg MCHC 30.6 L (31.0-37.0) g/dL RDW 17.8 H (11.5-15.5) % Plt Count 28 L (150-450) k/uL Macrocytosis Marked A ABG pH (7.35-7.45) ABG pO2 (83-108) mmHg ABG O2 Saturation (94-97) % Potassium 2.8 L (3.5-5.1) mmol/L Chloride 114 H (98-107) mmol/L Carbon Dioxide 20 L (22-30) mmol/L BUN 29 H (7-17) mg/dL Creatinine 2.01 H (0.52-1.04) mg/dL Glucose 147 H (74-99) mg/dL POC Glucose (mg/dL) (70-110) mg/dL Calcium 7.0 L (8.4-10.2) mg/dL Total Bilirubin 6.0 H (0.2-1.3) mg/dL AST 371 H (14-36) U/L ALT 81 H (4-34) U/L Ammonia (<30) umol/L C-Reactive Protein 20.1 H (<1.0) mg/dL Total Protein 5.2 L (6.3-8.2) g/dL Albumin 2.1 L (3.5-5.0) g/dL Vancomycin Trough ug/mL Random Vancomycin 67.5 H* ug/mL Crossmatch See Detail 10/11/22 10/11/22 10/11/22 Range/Units 08:09 10:49 11:53 RBC 1.56 L (3.80-5.40) m/uL Hgb 6.8 L* (11.4-16.0) gm/dL Hct 20.6 L (34.0-46.0) % MCV 132.3 H (80.0-100.0) fL MCH 43.3 H (25.0-35.0) pg MCHC (31.0-37.0) g/dL RDW 17.5 H (11.5-15.5) % Plt Count 24 L (150-450) k/uL Macrocytosis Marked A ABG pH (7.35-7.45) ABG pO2 (83-108) mmHg ABG O2 Saturation (94-97) % Potassium (3.5-5.1) mmol/L Chloride (98-107) mmol/L Carbon Dioxide (22-30) mmol/L BUN (7-17) mg/dL Creatinine (0.52-1.04) mg/dL Glucose (74-99) mg/dL POC Glucose (mg/dL) 143 H (70-110) mg/dL Calcium (8.4-10.2) mg/dL Total Bilirubin (0.2-1.3) mg/dL AST (14-36) U/L ALT (4-34) U/L Ammonia 89 H (<30) umol/L C-Reactive Protein (<1.0) mg/dL Total Protein (6.3-8.2) g/dL Albumin (3.5-5.0) g/dL Vancomycin Trough ug/mL Random Vancomycin ug/mL Crossmatch Microbiology - Last 24 Hours (Table) 10/09/22 00:23 Gram Stain - Final Sputum Sputum Culture - Final Methicillin resist S. aureus 10/09/22 20:35 Blood Culture Gram Stain - Preliminary Blood 10/09/22 01:30 Blood Culture - Final Blood 10/09/22 01:00 Blood Culture Gram Stain - Preliminary Blood Blood Culture - Preliminary Escherichia coli Staphylococcus aureus Streptococcus species Assessment and Plan Assessment: impression: Acute hypoxic respiratory failure secondary to sepsis, septic shock, MRSA pneumonia or staph aureus pneumonia, based on sputum cultures. Acute bacteremia as noted on positive blood cultures showing E. coli, staph aureus, and streptococcus, considering this is a multifactorial picture this is most likely contamination. Acute metabolic and lactic acidosis secondary to sepsis and septic shock Acute alcohol withdrawal History of polysubstance abuse Hepatic encephalopathy, continues to have elevated ammonia level. In spite of treatment. Chronic thrombocytopenia related to alcoholism Chronic macrocytic anemia Liver cirrhosis secondary to alcohol. Acute kidney injury secondary to sepsis and septic shock. Recommendation: Continue ventilatory support. Continue hemodynamic support. Patient is on norepinephrine and vasopressin. Continue lactulose and monitor ammonia level. Continue rifaximin. Continue empiric antibiotics including Merrem and vancomycin, being followed by ID. continue bronchodilators Continue GI and DVT prophylaxis Continue bicarb drip Decrease IV fluids as the patient seems to be fluid overloaded. Lasix 1 dose to be given. Chief Hospital Administrator to be consulted. Continuenutritional support/enteral feeding prognosis is guarded. Patient is critically ill. Critical care time is over 30 minutes Time with Patient: Greater than 30
[2022-10-11] MEDS: NYSTATIN 100,000 UNIT/ML SUSP 500,000 UNIT/5 ML CUP PO SCH ×3 (13:11→21:19)
--- NOTE | 2022-10-11 13:34 | PN ---
PROGRESS NOTE DATE OF SERVICE: 10/11/2022 SUBJECTIVE: This 42-year-old woman admitted with bilateral pneumonia, possibly aspiration, significant alcohol issues, continue to be maintained on mechanical ventilation. The chest x-ray showed bilateral lesions. The patient also had abdominal distention. The blood culture showed multiple organisms including E coli, staph, and strep. Dr. Lopez is following the patient closely. The patient's LFTs also elevated. PAST MEDICAL HISTORY: Reviewed. REVIEW OF SYSTEMS: Could not be taken. CURRENT MEDICATIONS: Reviewed include Levemir, meropenem, dose and rest of medications noted. PHYSICAL EXAMINATION: VITAL SIGNS: Pulse is 115, blood pressure 111/54, respirations 24. HEENT: Conjunctivae normal. CARDIOVASCULAR: S1, S2 muffled. RESPIRATIONS: Few scattered rhonchi. ABDOMEN: Soft, distended. NERVOUS SYSTEM: The patient is sedated. LABORATORY DATA: Reviewed, hemoglobin 6.8, rest of the labs are also noted. ASSESSMENT: 1. Bilateral pneumonia, possibly aspiration with sepsis present on admission. 2. Acute hypoxic respiratory failure, on mechanical ventilation. 3. Anemia, thrombocytopenia, secondary to alcohol possibly. 4. Alcoholic hepatitis. 5. Alcohol withdrawal syndrome and acute delirium tremens. 6. Sinus tachycardia. 7. Multiple medical issues. RECOMMENDATIONS: Recommended to continue current medications, continue symptomatic treatment. Otherwise at this time, I will recommend repeat labs. Supplement potassium. Blood transfusion. Currently, the patient is full code. We will monitor the patient closely and the patient also is developing renal failure. Nephrology has been consulted. Further recommendations to follow. MMODL / IJN: [id number] /
[2022-10-11 14:27] LABS: Poikilocytosis (M) Present
[2022-10-11] MEDS: VASOPRESSIN 60 UNIT in SODIUM CHLORIDE 0.9% 150 ML IV SCH (14:27)
--- NOTE | 2022-10-11 14:59 | P.PN ---
Subjective Progress Note Date: 10/11/22 Principal diagnosis: Hepatic encephalopathy This is a 42-year-old female who is brought in by EMS yesterday for altered mental status changes. History is obtained from the chart and the nurse. Patient has a long-standing history of alcohol abuse and known alcoholic liver disease. She just returned home from vacation over the weekend and her had noticed that she was acting different and much slower. Apparently progressively got worse and she was brought in for further evaluation. Reportedly her last drink was on Saturday. On admission patient was noted to have lactic acid of 10.4. She was admitted to the ICU and subsequently sedated and intubated for airway protection. Nursing stating she is on high dose of propofol and still having difficulty with sedating her. Patient was also positive for benzodiazepine and marijuana. Serum alcohol level less than 10. Patient currently remains sedated and intubated. She's had decreased urine output, has been tachycardic and hypotensive. Elevated ammonia level, patient was started on lactulose per rectum and nursing reported no bowel movements after 2 doses. Currently on meropenem and vancomycin. Admitting labs WBC 7.7 hemoglobin 8.9 hematocrit 26 platelet count 67,000 INR 3.8 sodium 132 potassium 4.0 creatinine 0.9 glucose 66 plasma lactic acid 10.4 total bilirubin 9.7, AST 5053 ALT 28 alkaline phosphatase 129 ammonia 69 Part of patient's workup consisted of a CT abdomen and pelvis with contrast that reported multiple findings including scattered airspace of P cities concerning for infectious/inflammatory process. Airspace opacities in the anterior upper lungs are somewhat wedge-shaped. Consider correlation with d-dimer and setting of pulmonary infarct. Hepatic status is within hepatic likely. Correlate with serum markers for hepatitis. Nondistended large bowel was circumferential stevenson pected pseudo-wall thickening with submucosal fat deposition. Alternatively findings could represent component of colitis, hyperemic gastric mucosa correlate for gastritis Ultrasound gallbladder reported fatty infiltrative liver. Gallbladder sludge with mild wall thickening measuring up to 0.4 cm and pericholecystic fluid 10/10/2022: Patient is seen and examined in the ICU. She remains sedated and intubated, Versed was started on patient. she is on CIWA protocol. On norepinephrine and propofol. Xifaxan was started yesterday. Patient reportedly had several bowel movements on a yesterday afternoon, however has not had any through the evening. LFTs trending down. Ammonia level improving. Today's labs WBC 5.0 hemoglobin 8.3 hematocrit 23 platelet count 51,000 INR 2.2 minutes at 190 total bilirubin 6.4 AST 424 ALT 64 alkaline phosphatase 97 ammonia level 85. 10/11/2022: Patient seen and examined in the ICU. She remained sedated and intubated. She is continues to be on pressors. Decreased urine output now 10- 15 mL/h. Blood cultures are positive for E. coli, staph aureus and Streptococcus. Patient had drop in hemoglobin today to 6.8, platelet count 24,000. Ammonia remains elevated at 89. Total bilirubin 6.0 AST 371 ALT 81 alkaline phosphatase 120. Nursing is reporting 3-4 bowel movements throughout last night and today, liquid. Objective - Vital Signs Vital signs: Vital Signs Temp 98.0 F 10/11/22 04:00 Pulse 115 H 10/11/22 07:58 Resp 24 10/11/22 07:00 BP 115/52 10/11/22 04:00 Pulse Ox 92 L 10/11/22 07:00 FiO2 50 10/11/22 07:35 Intake & Output 10/10/22 10/11/22 10/11/22 18:59 06:59 18:59 Intake Total 3000.839 3209.680 225.711 Output Total 170 528 15 Balance 2830.839 2681.680 210.711 Weight 73.1 kg Intake: IV 1375 1661 128 0.9% NaCl with KCl 20 Meq 825 975 75 /l 1,000 ml @ 75 mls/hr IV .[id number] [facility] Rx#: [id number] Dextrose 5% in Water 1, 450 650 50 000 ml @ 50 mls/hr IV . Q23H [facility] with Sodium Bicarb (1 Meq/ml) 150 ml Rx#:[id number] Meropenem 2 gm In Sodium 100 Chloride 0.9% 100 ml @ 33 .3 mls/hr IVPB Q8H [facility] Rx #:[id number] pressure bag 36 3 Intake, IV Titration 853.839 989.680 24.711 Amount Midazolam HCl 50 mg In 43.267 43.733 23.2 Sodium Chloride 0.9% 40 ml @ 2 MG/HR 2 mls/hr IV .Q24H [facility] Rx#:[id number] Norepinephrine 4 mg In 508.000 655.114 1.511 Sodium Chloride 0.9% 250 ml @ 0.03 MCG/KG/MIN 7. 777 mls/hr IV .Q24H [facility] Rx#:[id number] Vasopressin 60 unit In 115.821 Sodium Chloride 0.9% 150 ml @ 0.03 UNITS/MIN 4.59 mls/hr IV .Q24H [facility] Rx#: [id number] propofoL 1,000 mg In 186.751 290.833 Empty Bag 1 bag @ 15 MCG/ KG/MIN 6.124 mls/hr IV . [id number] [facility] Rx#:[id number] Oral 300 Tube Feeding 382 559 43 Other 90 30 Output: Urine 170 228 15 Stool 300 Other: Voiding Method Indwelling Catheter Indwelling Catheter # Bowel Movements 1 ABP, PAP, CO, CI - Last Documented Arterial Blood Pressure 125/43 - Exam General appearance: The patient is sedated and intubated. HET: Head is normocephalic and atraumatic. Conjunctiva pink. Sclera icteric. Neck: Supple without lymphadenopathy. Abdomen: Soft, mildly distended. Extremities: Normal skin color and turgor. Bilateral pedal edema. Skin: No rashes, jaundice. Neurological: Sedated and intubated. - Labs CBC & Chem 7: 10/11/22 08:09 10/11/22 06:15 Labs: Abnormal Lab Results - Last 24 Hours (Table) 10/10/22 10/10/22 10/10/22 Range/Units 08:49 11:54 17:53 RBC (3.80-5.40) m/uL Hgb (11.4-16.0) gm/dL Hct (34.0-46.0) % MCV (80.0-100.0) fL MCH (25.0-35.0) pg MCHC (31.0-37.0) g/dL RDW (11.5-15.5) % Plt Count (150-450) k/uL Macrocytosis ABG pH (7.35-7.45) ABG pO2 (83-108) mmHg ABG O2 Saturation (94-97) % Potassium (3.5-5.1) mmol/L Chloride (98-107) mmol/L Carbon Dioxide (22-30) mmol/L BUN (7-17) mg/dL Creatinine (0.52-1.04) mg/dL Glucose (74-99) mg/dL POC Glucose (mg/dL) 225 H 224 H (70-110) mg/dL Calcium (8.4-10.2) mg/dL Total Bilirubin (0.2-1.3) mg/dL AST (14-36) U/L ALT (4-34) U/L Total Protein (6.3-8.2) g/dL Albumin (3.5-5.0) g/dL Vancomycin Trough 74.3 H* ug/mL 10/10/22 10/10/22 10/11/22 Range/Units 20:30 23:12 05:14 RBC (3.80-5.40) m/uL Hgb (11.4-16.0) gm/dL Hct (34.0-46.0) % MCV (80.0-100.0) fL MCH (25.0-35.0) pg MCHC (31.0-37.0) g/dL RDW (11.5-15.5) % Plt Count (150-450) k/uL Macrocytosis ABG pH (7.35-7.45) ABG pO2 (83-108) mmHg ABG O2 Saturation (94-97) % Potassium (3.5-5.1) mmol/L Chloride (98-107) mmol/L Carbon Dioxide (22-30) mmol/L BUN (7-17) mg/dL Creatinine (0.52-1.04) mg/dL Glucose (74-99) mg/dL POC Glucose (mg/dL) 212 H 190 H 168 H (70-110) mg/dL Calcium (8.4-10.2) mg/dL Total Bilirubin (0.2-1.3) mg/dL AST (14-36) U/L ALT (4-34) U/L Total Protein (6.3-8.2) g/dL Albumin (3.5-5.0) g/dL Vancomycin Trough ug/mL 10/11/22 10/11/22 10/11/22 Range/Units 05:24 06:15 06:15 RBC 1.68 L (3.80-5.40) m/uL Hgb 6.8 L* D (11.4-16.0) gm/dL Hct 22.1 L (34.0-46.0) % MCV 131.4 H (80.0-100.0) fL MCH 40.0 H (25.0-35.0) pg MCHC 30.6 L (31.0-37.0) g/dL RDW 17.8 H (11.5-15.5) % Plt Count 28 L (150-450) k/uL Macrocytosis Marked A ABG pH 7.33 L (7.35-7.45) ABG pO2 59 L* (83-108) mmHg ABG O2 Saturation 88.2 L (94-97) % Potassium 2.8 L (3.5-5.1) mmol/L Chloride 114 H (98-107) mmol/L Carbon Dioxide 20 L (22-30) mmol/L BUN 29 H (7-17) mg/dL Creatinine 2.01 H (0.52-1.04) mg/dL Glucose 147 H (74-99) mg/dL POC Glucose (mg/dL) (70-110) mg/dL Calcium 7.0 L (8.4-10.2) mg/dL Total Bilirubin 6.0 H (0.2-1.3) mg/dL AST 371 H (14-36) U/L ALT 81 H (4-34) U/L Total Protein 5.2 L (6.3-8.2) g/dL Albumin 2.1 L (3.5-5.0) g/dL Vancomycin Trough ug/mL 10/11/22 Range/Units 08:09 RBC 1.56 L (3.80-5.40) m/uL Hgb 6.8 L* (11.4-16.0) gm/dL Hct 20.6 L (34.0-46.0) % MCV 132.3 H (80.0-100.0) fL MCH 43.3 H (25.0-35.0) pg MCHC (31.0-37.0) g/dL RDW 17.5 H (11.5-15.5) % Plt Count 24 L (150-450) k/uL Macrocytosis Marked A ABG pH (7.35-7.45) ABG pO2 (83-108) mmHg ABG O2 Saturation (94-97) % Potassium (3.5-5.1) mmol/L Chloride (98-107) mmol/L Carbon Dioxide (22-30) mmol/L BUN (7-17) mg/dL Creatinine (0.52-1.04) mg/dL Glucose (74-99) mg/dL POC Glucose (mg/dL) (70-110) mg/dL Calcium (8.4-10.2) mg/dL Total Bilirubin (0.2-1.3) mg/dL AST (14-36) U/L ALT (4-34) U/L Total Protein (6.3-8.2) g/dL Albumin (3.5-5.0) g/dL Vancomycin Trough ug/mL Microbiology - Last 24 Hours (Table) 10/09/22 00:23 Gram Stain - Final Sputum Sputum Culture - Final Methicillin resist S. aureus 10/09/22 20:35 Blood Culture Gram Stain - Preliminary Blood 10/09/22 01:30 Blood Culture - Final Blood 10/09/22 01:00 Blood Culture Gram Stain - Preliminary Blood Blood Culture - Preliminary Escherichia coli Staphylococcus aureus Streptococcus species Assessment and Plan (1) Hepatic encephalopathy Narrative/Plan: 42-year-old female with a normal history of alcohol abuse and alcoholic liver disease who presented to the emergency department with altered mental status changes. Patient had elevated ammonia level at 69, hypercoagulable with anemia and thrombocytopenia consistent with underlying liver disease. Patient continues to drink last drink was Saturday, some component also likely related to withdrawal symptoms. Continue current ICU management, will add Xifaxan, continue with lactulose and titrate to have 3-4 bowel movements daily. Continue with current medical management. Continue lactulose, Xifaxan, titrate lactulose to have 3-4 bowel movements daily. Daily labs. Current Visit: Yes Status: Acute Code(s): K76.82 - HEPATIC ENCEPHALOPATHY SNOMED Code(s): 39554249 (2) Alcoholic liver disease Current Visit: Yes Status: Acute Code(s): K70.9 - ALCOHOLIC LIVER DISEASE, UNSPECIFIED SNOMED Code(s): 87844097 (3) Lactic acidosis Current Visit: Yes Status: Acute Code(s): E87.2 - ACIDOSIS * DO NOT USE * SNOMED Code(s): 63202025 (4) ETOH abuse Current Visit: No Status: Acute Code(s): F10.10 - ALCOHOL ABUSE, UNCOMPLICATED SNOMED Code(s): 37269766 (5) Thrombocytopenia Current Visit: Yes Status: Acute Code(s): D69.6 - THROMBOCYTOPENIA, UNSPECIFIED SNOMED Code(s): 836952436 (6) Anemia Current Visit: No Status: Acute Code(s): D64.9 - ANEMIA, UNSPECIFIED SNOMED Code(s): 539368192 (7) Sepsis Current Visit: Yes Status: Acute Code(s): A41.9 - SEPSIS, UNSPECIFIED ORGANISM SNOMED Code(s): 95900312 Plan: 1. Continue symptomatic and supportive care 2. Continue medical management and recommendations from assistant to the ceo. 3. Continue lactulose as ordered, titrate to 3-4 bowel movements daily 4. Continue Xifaxin 550 mg twice a day 5. Daily CBC, transfuse for hemoglobin less than 7 6. Continue antibiotics per recommendations from infectious disease 7. Protonix 40 mg IV daily for GI prophylaxis 8. CIWA protocol 9. Transfuse 1 unit PRBC Prognosis poor, significant other is trying to obtain guardianship. Thank you for this consultation, we will continue to follow Dr. Kaiden Brandon I agree with the dictator's note, documented as a scribe by Camilla Clay.
--- NOTE | 2022-10-11 15:33 | US ---
EXAMINATION TYPE: US abdomen complete DATE OF EXAM: 10/11/2022 COMPARISON: NONE CLINICAL HISTORY: distended abd. intubated ICU, distended abd, etoh abuse TECHNIQUE: Multiple sonographic images of the abdomen are obtained. FINDINGS: EXAM MEASUREMENTS: Liver Length: 18.2 cm Gallbladder Wall: 0.2 cm CBD: 0.7 cm Spleen: 16.3 cm Right Kidney: 10.3 x 4.5 x 4.9cm Left Kidney: 11.2 x 4.7 x 4.7cm EDUCATION COUNSELOR NOTES: patient is intubated and bowel gas limits exam Pancreas: wnl Liver: very difficult to penetrate, heterogeneous, nodular with mild amount of dome ascites seen Gallbladder: fold, internal debris and possible gutter fluid Evidence for sonographic Luque's sign: no CBD: wnl Spleen: enlarged Right Kidney: wnl Left Kidney: wnl Upper IVC: wnl Abd Aorta: obscured by bowel The intrahepatic portion of the IVC and proximal abdominal aorta are within normal limits. Common bi le duct is unremarkable. The visualized portions of the pancreas are homogenous. The spleen is unre markable. Kidneys are symmetric and free of hydronephrosis. No renal lesions are seen. IMPRESSION: Cirrhotic liver disease with evidence of ascites. Gallbladder debris noted.
--- NOTE | 2022-10-11 17:45 | P.PN ---
Subjective Progress Note Date: 10/11/22 Principal diagnosis: Sepsis and bacteremia Patient is a 42-year-old female with a past medical history significant for GERD reflux diabetic steatosis alcohol abuse presenting to the ER for evaluation of mental status changes , patient was noticed to be hypotensive afebrile and evidence of sepsis requiring intubation and admission to the ICU. On today's evaluation had that is 10/11/2022, the patient fever pattern has improved the patient is afebrile this morning, the patient is requiring about the same pressor support per the nursing staff, the patient FiO2 is stable at 50% and no significant purulent secretion through the ET and no diarrhea has been reported , Objective - Vital Signs Vital signs: Vital Signs Temp 98.2 F 10/11/22 08:30 Pulse 113 H 10/11/22 11:18 Resp 24 10/11/22 10:30 BP 111/54 10/11/22 10:30 Pulse Ox 91 L 10/11/22 10:30 FiO2 50 10/11/22 11:00 Intake & Output 10/10/22 10/11/22 10/11/22 18:59 06:59 18:59 Intake Total 3000.839 3209.680 323.926 Output Total 170 528 15 Balance 2830.839 2681.680 308.926 Weight 73.1 kg Intake: IV 1375 1661 128 0.9% NaCl with KCl 20 Meq 825 975 75 /l 1,000 ml @ 75 mls/hr IV .[id number] [facility] Rx#: [id number] Dextrose 5% in Water 1, 450 650 50 000 ml @ 50 mls/hr IV . Q23H [facility] with Sodium Bicarb (1 Meq/ml) 150 ml Rx#:[id number] Meropenem 2 gm In Sodium 100 Chloride 0.9% 100 ml @ 33 .3 mls/hr IVPB Q8H [facility] Rx #:[id number] pressure bag 36 3 Intake, IV Titration 853.839 989.680 122.926 Amount Midazolam HCl 50 mg In 43.267 43.733 23.2 Sodium Chloride 0.9% 40 ml @ 2 MG/HR 2 mls/hr IV .Q24H [facility] Rx#:[id number] Norepinephrine 4 mg In 508.000 655.114 1.511 Sodium Chloride 0.9% 250 ml @ 0.03 MCG/KG/MIN 7. 777 mls/hr IV .Q24H [facility] Rx#:[id number] Vasopressin 60 unit In 115.821 Sodium Chloride 0.9% 150 ml @ 0.03 UNITS/MIN 4.59 mls/hr IV .Q24H [facility] Rx#: [id number] propofoL 1,000 mg In 186.751 290.833 98.215 Empty Bag 1 bag @ 15 MCG/ KG/MIN 6.124 mls/hr IV . [id number] [facility] Rx#:[id number] Oral 300 Tube Feeding 382 559 43 Other 90 30 Output: Urine 170 228 15 Stool 300 Other: Voiding Method Indwelling Catheter Indwelling Catheter # Bowel Movements 1 ABP, PAP, CO, CI - Last Documented Arterial Blood Pressure 114/42 - Exam GENERAL DESCRIPTION: A middle-aged female intubated on the vent RESPIRATORY SYSTEM: Unlabored breathing , decreased breath sounds at bases HEART: S1 S2 regular rate and rhythm , ABDOMEN: Soft , mild distention EXTREMITIES: No edema feet - Labs CBC & Chem 7: 10/11/22 08:09 10/11/22 06:15 Labs: Abnormal Lab Results - Last 24 Hours (Table) 10/10/22 10/10/22 10/10/22 Range/Units 08:49 17:53 20:30 RBC (3.80-5.40) m/uL Hgb (11.4-16.0) gm/dL Hct (34.0-46.0) % MCV (80.0-100.0) fL MCH (25.0-35.0) pg MCHC (31.0-37.0) g/dL RDW (11.5-15.5) % Plt Count (150-450) k/uL Macrocytosis ABG pH (7.35-7.45) ABG pO2 (83-108) mmHg ABG O2 Saturation (94-97) % Potassium (3.5-5.1) mmol/L Chloride (98-107) mmol/L Carbon Dioxide (22-30) mmol/L BUN (7-17) mg/dL Creatinine (0.52-1.04) mg/dL Glucose (74-99) mg/dL POC Glucose (mg/dL) 224 H 212 H (70-110) mg/dL Calcium (8.4-10.2) mg/dL Total Bilirubin (0.2-1.3) mg/dL AST (14-36) U/L ALT (4-34) U/L Ammonia (<30) umol/L C-Reactive Protein (<1.0) mg/dL Total Protein (6.3-8.2) g/dL Albumin (3.5-5.0) g/dL Vancomycin Trough 74.3 H* ug/mL Random Vancomycin ug/mL Crossmatch 10/10/22 10/11/22 10/11/22 Range/Units 23:12 05:14 05:24 RBC (3.80-5.40) m/uL Hgb (11.4-16.0) gm/dL Hct (34.0-46.0) % MCV (80.0-100.0) fL MCH (25.0-35.0) pg MCHC (31.0-37.0) g/dL RDW (11.5-15.5) % Plt Count (150-450) k/uL Macrocytosis ABG pH 7.33 L (7.35-7.45) ABG pO2 59 L* (83-108) mmHg ABG O2 Saturation 88.2 L (94-97) % Potassium (3.5-5.1) mmol/L Chloride (98-107) mmol/L Carbon Dioxide (22-30) mmol/L BUN (7-17) mg/dL Creatinine (0.52-1.04) mg/dL Glucose (74-99) mg/dL POC Glucose (mg/dL) 190 H 168 H (70-110) mg/dL Calcium (8.4-10.2) mg/dL Total Bilirubin (0.2-1.3) mg/dL AST (14-36) U/L ALT (4-34) U/L Ammonia (<30) umol/L C-Reactive Protein (<1.0) mg/dL Total Protein (6.3-8.2) g/dL Albumin (3.5-5.0) g/dL Vancomycin Trough ug/mL Random Vancomycin ug/mL Crossmatch 10/11/22 10/11/22 10/11/22 Range/Units 06:15 06:15 08:09 RBC 1.68 L (3.80-5.40) m/uL Hgb 6.8 L* D (11.4-16.0) gm/dL Hct 22.1 L (34.0-46.0) % MCV 131.4 H (80.0-100.0) fL MCH 40.0 H (25.0-35.0) pg MCHC 30.6 L (31.0-37.0) g/dL RDW 17.8 H (11.5-15.5) % Plt Count 28 L (150-450) k/uL Macrocytosis Marked A ABG pH (7.35-7.45) ABG pO2 (83-108) mmHg ABG O2 Saturation (94-97) % Potassium 2.8 L (3.5-5.1) mmol/L Chloride 114 H (98-107) mmol/L Carbon Dioxide 20 L (22-30) mmol/L BUN 29 H (7-17) mg/dL Creatinine 2.01 H (0.52-1.04) mg/dL Glucose 147 H (74-99) mg/dL POC Glucose (mg/dL) (70-110) mg/dL Calcium 7.0 L (8.4-10.2) mg/dL Total Bilirubin 6.0 H (0.2-1.3) mg/dL AST 371 H (14-36) U/L ALT 81 H (4-34) U/L Ammonia (<30) umol/L C-Reactive Protein 20.1 H (<1.0) mg/dL Total Protein 5.2 L (6.3-8.2) g/dL Albumin 2.1 L (3.5-5.0) g/dL Vancomycin Trough ug/mL Random Vancomycin 67.5 H* ug/mL Crossmatch See Detail 10/11/22 10/11/22 10/11/22 Range/Units 08:09 10:49 11:53 RBC 1.56 L (3.80-5.40) m/uL Hgb 6.8 L* (11.4-16.0) gm/dL Hct 20.6 L (34.0-46.0) % MCV 132.3 H (80.0-100.0) fL MCH 43.3 H (25.0-35.0) pg MCHC (31.0-37.0) g/dL RDW 17.5 H (11.5-15.5) % Plt Count 24 L (150-450) k/uL Macrocytosis Marked A ABG pH (7.35-7.45) ABG pO2 (83-108) mmHg ABG O2 Saturation (94-97) % Potassium (3.5-5.1) mmol/L Chloride (98-107) mmol/L Carbon Dioxide (22-30) mmol/L BUN (7-17) mg/dL Creatinine (0.52-1.04) mg/dL Glucose (74-99) mg/dL POC Glucose (mg/dL) 143 H (70-110) mg/dL Calcium (8.4-10.2) mg/dL Total Bilirubin (0.2-1.3) mg/dL AST (14-36) U/L ALT (4-34) U/L Ammonia 89 H (<30) umol/L C-Reactive Protein (<1.0) mg/dL Total Protein (6.3-8.2) g/dL Albumin (3.5-5.0) g/dL Vancomycin Trough ug/mL Random Vancomycin ug/mL Crossmatch Microbiology - Last 24 Hours (Table) 10/09/22 00:23 Gram Stain - Final Sputum Sputum Culture - Final Methicillin resist S. aureus 10/09/22 20:35 Blood Culture Gram Stain - Preliminary Blood 10/09/22 01:30 Blood Culture - Final Blood 10/09/22 01:00 Blood Culture Gram Stain - Preliminary Blood Blood Culture - Preliminary Escherichia coli Staphylococcus aureus Streptococcus species Assessment and Plan (1) Sepsis Current Visit: Yes Status: Acute Code(s): A41.9 - SEPSIS, UNSPECIFIED ORGANISM SNOMED Code(s): 43131905 Plan: 1patient was in the hospital with sepsis/septic shock in this patient who did have a fever hypotension elevated lactic acid source could be abdominal and there was evidence of some pericholecystic fluid on the ultrasound and possible component of pneumonia many to cover for the gram-positive as well as gram- negative pathogen 2-patient with cephalexin allergy that would limit the number of antibiotics safe to use 3-the patient sputum for Gram stain and culture are currently growing MRSA, the blood culture also growing staph aureus E. coli and Streptococcus with sens itivities pending, blood culture has been repeated documented recurrence of bacteremia 4-patient to continue with the vancomycin and meropenem to 1 g every 8 hours while waiting for the cultures to finalize and monitor clinical course closely Time with Patient: Less than 30
[2022-10-11 17:51] LABS: Glucose,Whole Blood 129 mg/dL (70-110)
[2022-10-11 18:11] LABS: Potassium 4.1 mmol/L (3.5-5.1)
[2022-10-11 18:24] LABS: Magnesium 1.9 mg/dL (1.6-2.3)
[2022-10-11] MEDS: INSULIN DETEMIR (LEVEMIR) 100 UNIT/ML SYR SQ SCH (21:19)
--- NOTE | 2022-10-11 21:50 | XR ---
EXAMINATION TYPE: XR abdomen 1V DATE OF EXAM: 10/11/2022 9:45 PM CLINICAL HISTORY: Absent bowel sounds. TECHNIQUE: Two supine KUB images of the abdomen are obtained. COMPARISON: CT abdomen and pelvis 3 days ago. FINDINGS: There is new nasogastric tube terminating in stomach. Some Paucity of bowel gas. Gas seen i n nondistended stomach. Minimal gas seen in nondistended small and large bowel loops. Catheter device overlies the pubic symphysis likely within bladder. There is right femoral central venous catheter. Visualized osseous structures are intact. Lung bases are not included. Hepatomegaly seen better on re cent CT. IMPRESSION: Overall nonspecific but still favor nonobstructive bowel gas pattern.
[2022-10-11 23:43] LABS: Glucose,Whole Blood 114 mg/dL (70-110)
[2022-10-12] MEDS: MEROPENEM 1 GM in SODIUM CHLORIDE 0.9% 100 ML IVPB SCH ×3 (00:21→15:44)
[2022-10-12] MEDS: IPRATROPIUM-ALBUTEROL 3 ML NEB INHALATION SCH ×2 (01:14→04:36)
[2022-10-12 04:44] LABS: Anisocytosis Moderate; Hypochromasia Slight; MCH 40.2 pg (25.0-35.0); MCHC 33.7 g/dL (31.0-37.0); Macrocytosis Marked; Mean Platelet Volume 9.1; Poikilocytosis Slight; WBC 5.4 k/uL (3.8-10.6)
[2022-10-12 04:53] LABS: HGB 8.4 gm/dL (11.4-16.0); MCV 119.3 fL (80.0-100.0)
[2022-10-12 04:55] LABS: Calcium 7.2 mg/dL (8.4-10.2); Platelet Count 19 k/uL (150-450); Potassium 3.6 mmol/L (3.5-5.1)
[2022-10-12 05:14] LABS: Vancomycin,Random 51.5 ug/mL
[2022-10-12 05:44] LABS: ABG Base Excess -1.3 mmol/L; ABG HCO3 23 mmol/L (21-25); ABG Oxygen Saturation 89.6 % (94-97); ABG PCO2 34 mmHg (35-45); ABG PH 7.44 (7.35-7.45); ABG TCO2 24 mmol/L (19-24); Allen Test Performed? Yes
[2022-10-12] MEDS: INSULIN ASPART (NovoLOG) 100 UNIT/ML VIAL SQ SCH ×3 (05:58→18:40)
[2022-10-12] MEDS: 0.9% NACL WITH KCL 20 MEQ/L 1,000 ML IV SCH (05:59)
[2022-10-12 06:18] LABS: ABG PO2 53 mmHg (83-108)
--- NOTE | 2022-10-12 07:31 | XR ---
EXAMINATION TYPE: XR chest 1V portable DATE OF EXAM: 10/12/2022 CLINICAL HISTORY: Difficulty breathing progress study. TECHNIQUE: Single AP portable semiupright view of the chest is obtained. COMPARISON: Chest x-ray from one day earlier and older studies. FINDINGS: Stable endotracheal and orogastric tubes. Persistent low lung volumes and left basilar opacity. Increased central markings. Cardiac silhouette size is stable and within normal limits. Osseous structures are intact. IMPRESSION: Low lung volumes with mild bilateral edema and/or infiltrates and more focal left basilar consolidation all redemonstrated. No significant change from one day earlier.
[2022-10-12] MEDS: PANTOPRAZOLE 40 MG/10 ML VIAL IV SCH ×2 (07:48→20:41)
[2022-10-12] MEDS: ALBUTEROL NEBULIZED 2.5 MG/3 ML INHALATION SCH ×4 (07:55→19:35)
[2022-10-12] MEDS: IPRATROPIUM 0.5 MG/2.5 ML NEBU INHALATION SCH ×4 (07:55→19:35)
[2022-10-12] MEDS: RIFAXIMIN 550 MG TABLET PO SCH ×2 (08:07→20:44)
[2022-10-12] MEDS: THIAMINE 100 MG TAB PO SCH (08:07)
[2022-10-12] MEDS: LACTULOSE 20 GM/30 ML CUP PO SCH ×3 (08:07→20:41)
[2022-10-12] MEDS: CHLORHEXIDINE GLUCONATE 15 ML CUP MUCOUS MEM SCH ×2 (08:07→20:42)
[2022-10-12] MEDS: NYSTATIN 100,000 UNIT/ML SUSP 500,000 UNIT/5 ML CUP PO SCH ×2 (08:08→12:12)
[2022-10-12] MEDS ORDERED: FUROSEMIDE 10 MG/ML 10 ML VIAL IV STA (09:03)
[2022-10-12] MEDS: DEXTROSE 5% IN WATER 1,000 ML with SODIUM BICARB (1 MEQ/ML) 150 ML IV SCH (10:07)
--- NOTE | 2022-10-12 10:18 | P.PN ---
Subjective Patient is seen in follow for acute kidney injury. Renal function stable. Urine output about 30 mL an hour. Remains on vasopressors but being weaned. Bicarb drip now running at 25 mL an hour. Tube feeds held due to high residuals. Vital signs are stable. On vasopressor support. General: Resting in bed. HEENT: Intubated. LUNGS: No audible rhonchi or wheezes. HEART: Rate and Rhythm are regular. ABDOMEN: Distention noted. EXTREMITITES: Trace edema. Objective - Vital Signs Vital signs: Vital Signs Temp 97.9 F 10/12/22 10:00 Pulse 101 H 10/12/22 10:00 Resp 24 10/12/22 10:00 BP 127/52 10/12/22 10:00 Pulse Ox 95 10/12/22 10:00 FiO2 50 10/12/22 08:00 Intake & Output 10/11/22 10/12/22 10/12/22 18:59 06:59 18:59 Intake Total 2804.169 1589.073 544.322 Output Total 1765 1015 90 Balance 1039.169 574.073 454.322 Weight 74.8 kg Intake: IV 864 916 134 0.9% NaCl with KCl 20 Meq 185 30 /l 1,000 ml @ 20 mls/hr IV .Q24H [facility] Rx#: [id number] Dextrose 5% in Water 1, 550 650 125 000 ml @ 25 mls/hr IV . Q24H [facility] with Sodium Bicarb (1 Meq/ml) 150 ml Rx#:[id number] Meropenem 2 gm In Sodium 100 100 Chloride 0.9% 100 ml @ 33 .3 mls/hr IVPB Q8H [facility] Rx #:[id number] Sodium Chloride 0.9% 1, 100 000 ml @ 75 mls/hr IV . [id number] [facility] Rx#:[id number] pressure bag 29 36 9 Intake, IV Titration 761.169 343.073 72.322 Amount Midazolam HCl 50 mg In 35.617 Sodium Chloride 0.9% 40 ml @ 2 MG/HR 2 mls/hr IV .Q24H [facility] Rx#:[id number] Norepinephrine 4 mg In 128.230 243.073 43.031 Sodium Chloride 0.9% 250 ml @ 0.03 MCG/KG/MIN 7. 777 mls/hr IV .Q24H [facility] Rx#:[id number] Potassium Chloride 20 meq 300 In Water For Injection 1 100ml.bag @ 50 mls/hr IVPB Q2H [facility] Rx#: [id number] Vasopressin 60 unit In 122.324 Sodium Chloride 0.9% 150 ml @ 0.03 UNITS/MIN 4.59 mls/hr IV .Q24H [facility] Rx#: [id number] propofoL 1,000 mg In 174.998 100 29.291 Empty Bag 1 bag @ 15 MCG/ KG/MIN 6.124 mls/hr IV . [id number] [facility] Rx#:[id number] Tube Feeding 949 20 0 Blood Product 0 310 338 Platelet Pheresis Pas 338 Psoralen Unit [id number] Rc Pheresis As-3 Unit 0 310 [id number] Other 230 Output: Gastric Drainage 800 550 Urine 365 465 90 Stool 600 Other: Voiding Method Indwelling Catheter Indwelling Catheter # Bowel Movements 1 1 ABP, PAP, CO, CI - Last Documented Arterial Blood Pressure 127/52 - Labs CBC & Chem 7: 10/12/22 04:20 10/12/22 04:20 Labs: Abnormal Lab Results - Last 24 Hours (Table) 10/11/22 10/11/22 10/11/22 Range/Units 06:15 06:15 06:15 RBC (3.80-5.40) m/uL Hgb (11.4-16.0) gm/dL Hct (34.0-46.0) % MCV (80.0-100.0) fL MCH (25.0-35.0) pg RDW (11.5-15.5) % Plt Count (150-450) k/uL Lymphocytes # 0.7 L (1.0-4.8) k/uL Macrocytosis ABG pCO2 (35-45) mmHg ABG pO2 (83-108) mmHg ABG O2 Saturation (94-97) % Chloride (98-107) mmol/L BUN (7-17) mg/dL Creatinine (0.52-1.04) mg/dL POC Glucose (mg/dL) (70-110) mg/dL Calcium (8.4-10.2) mg/dL Ammonia (<30) umol/L C-Reactive Protein 20.1 H (<1.0) mg/dL Procalcitonin 7.45 H (0.02-0.09) ng/mL Random Vancomycin 67.5 H* ug/mL Crossmatch 10/11/22 10/11/22 10/11/22 Range/Units 08:09 08:09 10:49 RBC (3.80-5.40) m/uL Hgb (11.4-16.0) gm/dL Hct (34.0-46.0) % MCV (80.0-100.0) fL MCH (25.0-35.0) pg RDW (11.5-15.5) % Plt Count (150-450) k/uL Lymphocytes # 0.6 L (1.0-4.8) k/uL Macrocytosis ABG pCO2 (35-45) mmHg ABG pO2 (83-108) mmHg ABG O2 Saturation (94-97) % Chloride (98-107) mmol/L BUN (7-17) mg/dL Creatinine (0.52-1.04) mg/dL POC Glucose (mg/dL) (70-110) mg/dL Calcium (8.4-10.2) mg/dL Ammonia 89 H (<30) umol/L C-Reactive Protein (<1.0) mg/dL Procalcitonin (0.02-0.09) ng/mL Random Vancomycin ug/mL Crossmatch See Detail 10/11/22 10/11/22 10/11/22 Range/Units 11:53 17:48 23:42 RBC (3.80-5.40) m/uL Hgb (11.4-16.0) gm/dL Hct (34.0-46.0) % MCV (80.0-100.0) fL MCH (25.0-35.0) pg RDW (11.5-15.5) % Plt Count (150-450) k/uL Lymphocytes # (1.0-4.8) k/uL Macrocytosis ABG pCO2 (35-45) mmHg ABG pO2 (83-108) mmHg ABG O2 Saturation (94-97) % Chloride (98-107) mmol/L BUN (7-17) mg/dL Creatinine (0.52-1.04) mg/dL POC Glucose (mg/dL) 143 H 129 H 114 H (70-110) mg/dL Calcium (8.4-10.2) mg/dL Ammonia (<30) umol/L C-Reactive Protein (<1.0) mg/dL Procalcitonin (0.02-0.09) ng/mL Random Vancomycin ug/mL Crossmatch 10/12/22 10/12/22 10/12/22 Range/Units 04:20 04:20 04:20 RBC 2.10 L (3.80-5.40) m/uL Hgb 8.4 L D (11.4-16.0) gm/dL Hct 25.0 L (34.0-46.0) % MCV 119.3 H D (80.0-100.0) fL MCH 40.2 H (25.0-35.0) pg RDW 24.0 H (11.5-15.5) % Plt Count 19 L* (150-450) k/uL Lymphocytes # (1.0-4.8) k/uL Macrocytosis Marked A ABG pCO2 (35-45) mmHg ABG pO2 (83-108) mmHg ABG O2 Saturation (94-97) % Chloride 114 H (98-107) mmol/L BUN 38 H (7-17) mg/dL Creatinine 2.19 H 2.17 H (0.52-1.04) mg/dL POC Glucose (mg/dL) (70-110) mg/dL Calcium 7.2 L (8.4-10.2) mg/dL Ammonia (<30) umol/L C-Reactive Protein (<1.0) mg/dL Procalcitonin (0.02-0.09) ng/mL Random Vancomycin 51.5 H* ug/mL Crossmatch 10/12/22 10/12/22 Range/Units 04:20 05:40 RBC (3.80-5.40) m/uL Hgb (11.4-16.0) gm/dL Hct (34.0-46.0) % MCV (80.0-100.0) fL MCH (25.0-35.0) pg RDW (11.5-15.5) % Plt Count (150-450) k/uL Lymphocytes # (1.0-4.8) k/uL Macrocytosis ABG pCO2 34 L (35-45) mmHg ABG pO2 53 L* (83-108) mmHg ABG O2 Saturation 89.6 L (94-97) % Chloride (98-107) mmol/L BUN (7-17) mg/dL Creatinine (0.52-1.04) mg/dL POC Glucose (mg/dL) (70-110) mg/dL Calcium (8.4-10.2) mg/dL Ammonia 46 H (<30) umol/L C-Reactive Protein (<1.0) mg/dL Procalcitonin (0.02-0.09) ng/mL Random Vancomycin ug/mL Crossmatch Microbiology - Last 24 Hours (Table) 10/11/22 06:08 Blood Culture - Preliminary Blood No Growth after 24 hours 10/09/22 20:35 Blood Culture Gram Stain - Preliminary Blood 10/09/22 00:23 Gram Stain - Final Sputum Sputum Culture - Final Methicillin resist S. aureus 10/09/22 01:30 Blood Culture - Final Blood Assessment and Plan Plan: Assessment: 1. Acute kidney injury secondary to ATN secondary to septic shock. Also received IV contrast on 10/08/2022. Creatinine 0.94 on admission and is 2.17 today. Urine output 30 mL an hour. No hydronephrosis noted on CAT scan. 2. Septic shock secondary to pneumonia and E. coli, staph and strep bacteremia. On antibiotics and vasopressors. 3. Acute blood loss anemia. Improved post blood transfusion. 4. Metabolic acidosis secondary to acute kidney injury and lactic acidosis. s/p bicarb drip. Improved. 5. Hypokalemia from intracellular shifting from IV bicarb. 6. Alcohol liver disease. 7. Mild hypernatremia from lack of oral water intake. Stable. 8. Volume overload. Plan: Lasix 80 mg IV once today. Replace potassium. May need paracentesis once platelet count improves. Receiving platelet transfusion today. Continue to monitor renal function and urine output. Continue to assess daily for need for renal replacement therapy. Vancomycin level 51.5 today. Dose to be adjusted for renal function. No vancomycin today. Prognosis poor.
[2022-10-12] MEDS ORDERED: POTASSIUM CHLORIDE 20 MEQ in WATER FOR INJECTION 1 100ML.BAG IVPB STA (11:20)
[2022-10-12 12:11] LABS: Glucose,Whole Blood 82 mg/dL (70-110)
--- NOTE | 2022-10-12 12:13 | P.PN ---
Subjective Progress Note Date: 10/12/22 Principal diagnosis: , acute hypoxic respiratory failure secondary to pneumonia, sepsis, and possible aspiration. I am seeing this patient in new consultation today 10/09/2022 in regard to ICU management. Patient is a 42-year-old white female with past medical history significant for alcoholic liver diseas alcohol abuse, and suspected polysubstance abuse. Patient initially presented to the emergency room with family for new onset altered mental status yesterday evening. Family also reports that the patient has been coughing. Her last alcoholic drink was Saturday night. There is also concern for alcohol withdrawal. Patient is jaundiced. On top of these concerns, patient was found to be hypotensive and tachycardic on arrival to the emergency room. She is also febrile. Chest x-ray on arrival showed multifocal airspace opacities. A follow-up CT of the chest abdomen and pelvis with contrast redemonstrated the multifocal skilled scattered airspace opacities with concern for possible pneumonia, there were concerns about wedge- shape of the opacities and we will correlate with d-dimer, hepatic steatosis with hepatomegaly, nondistended large bowel with suspected pseudo-wall thickening and submucosal fat deposition which could correlate with colitis, and hyperemic gastric mucosa which could correlate for gastritis. Nonenhanced brain CT showed no acute intracranial process. Apparently, the patient became agitated in the emergency room. This agitation was treated with Ativan, and then patient became unresponsive. Emergency room physician intubated the patient to ultimately protect her airway. Preintubation ABG showed a pO2 of 72, pCO2 31, pH of 7.39. The patient is currently on mechanical ventilator settings AC, respiratory rate 24, tidal volume 400, FiO2 100%, PEEP of 5. Post-intubation chest x-ray shows the tip of the ET tube 2 centimeters from the norberto, with an NG tube coursing below the diaphragm. Patient's hypotension has been treated with 3 crystalloid boluses, and the patient has required a norepinephrine infusion currently infusing at 0.08 mics per kilogram per minute through a right femoral central line. Propofol is infusing at 5 mics per per kg per minute. The patient is calm and synchronous with mechanical ventilator at this time. Patient also has normal saline infusing at 100 mL per hour. Patient's CBC on arrival showed a WBC count of 7.7, hemoglobin 8.9, hematocrit 26.7, platelet count 67,000. Coagulation profile was abnormal with an INR 3.8. No evidence of acute bleed. CMP on arrival showed a sodium 132, potassium 4, chloride 93, serum CO2 21, B1 12, creatinine 0.94, glucose 66. Hypoglycemia was corrected and is currently 137 mg/dL. Patient's ammonia level was elevated at 69 and she is receiving lactulose. Lactic acid was elevated at 10.4. LFTs are elevated AST 153, ALT 98, and alkaline phosphatase 129. Patient has a gallbladder ultrasound pending. At this time it is unknown if the patient ingested other substances as she has a history of polysubstance abuse. A urine toxicology screen has been ordered. Pancultures are pending. Patient is currently empirically covered with meropenem and vancomycin. Patient is febrile with a T- max of 100.1F. Patient was negative for influenza, RSV, COVID-19. Patient's condition at this time is critical. Patient is a full code. Patient was reevaluated today on 10/10/2022, remains in the ICU, intubated and mechanically ventilated. He is on assist control rate of 24th of 400 FiO2 50% and PEEP of 8 ABG showed a pO2 of 94 pCO2 32 pH of 7.33. Hemoglobin is 8.3 INR is 2.2. Endotracheal tube is noted to be distal in the trachea, and this will be pulled back about 1.5 cm. Patient remains on D5 45 at 50 mL per hour, is also on propofol at 75 norepinephrine at 0.06 vasopressin at 0.03 and fentanyl, patient is receiving enteral feeding. She is on vital HPI at 30 mL per hour, chest x-ray continues to show an infiltrate in the left lower lobe and right lower lobe endotracheal tube was noted to be relatively close to the norberto and this will be adjusted., sputum Gram stain is positive for presumptive staph aureus, final report is pending, patient remains on Merrem and vancomycin in the meantime Reevaluated today on 04/12/2023, patient remains in the ICU, intubated and mechanically ventilated. She is now on assist control rate of 24th of volume 400 FiO2 50% PEEP of 8 and a increased the PEEP to 10. ABG showed a pO2 of 59 pCO2 40 pH of 7.33. Patient is receiving a unit of packed RBC this morning for hemoglobin of 6.8. Her renal functioning seems to be deteriorating and worsening creatinine is up to 2.01. Liver enzymes remain elevated. Ammonia level is pending. Nephrology was consulted for her acute kidney injury, diabete s concern is the patient developing acute hepatorenal syndrome. Urine output remains marginal, Lasix was ordered to be given 1. Her IV fluid is Down to KVO, remains on sodium bicarb drip. Patient remains on norepinephrine at 0.12 she is also on Versed 3 mg/h, and propofol at 75 mcg/kg/m. 0.9 normal saline at 75 mL/h this will be cut down to KVO, and Lasix will be given. Chest x-ray is showing worsening in her consolidation in the left lower lobe, and I suspect there may be a component of groundglass appearance suggestive of mild interstitial edema and fluid overload. WBC count is 3.9 hemoglobin 6.8. Electrolytes are abnormal with sodium 145 potassium 2.8 bicarb is 20 BUN is 49 and creatinine 2.0 1 repeat ammonia level today is 89, remains quite elevated, patient is on lactulose and she is also on rifaximin. Reevaluated today on 04/13/2023, patient remains in the ICU intubated and mechanically ventilated. She is on assist control rate of 24-400 FiO2 50% and PEEP of 10 ABG showed a pO2 of 53 pCO2 34 pH of 7.44, hence FiO2 was increased to 50%*of 40%. Chest x-ray is showing improvement in her bilateraldisease especially on the left side. Remains on propofol at 25 mg/kg/m norepinephrine at 0.04 mcg/kg/m vasopressin 0.03 units per minute and bicarb drip which I cut it down to 25 mL per hour. 50 mL per hour. Patient remains on lactulose and ammonia level is down to 46 today. She will be receiving a dose of Lasix 80 mg IV push. I will discontinue propofol since the patient may not require much sedation. Patient is definitely not ready for any form of weaning or extubation at this point. Her platelets were noted to be quite low today, and I'm recommending 2 units of platelets to be given. His sputum came back positive for MRSA, and she remains covered with vancomycin. WBC count today is 5.4 hemoglobin is 8.4. Her platelets are 19,000. Electrolytes are normal except for sodium 145 BUN of 38 creatinine 2.17. Urine output is marginal, and I have recommended another dose of Lasix 80 mg to be given today IV push. Objective - Vital Signs Vital signs: Vital Signs Temp 97.9 F 10/12/22 10:00 Pulse 101 H 10/12/22 11:52 Resp 24 10/12/22 11:52 BP 127/52 10/12/22 10:00 Pulse Ox 96 10/12/22 11:00 FiO2 50 10/12/22 11:46 Intake & Output 10/11/22 10/12/22 10/12/22 18:59 06:59 18:59 Intake Total 2804.169 1589.073 578.197 Output Total 1765 1015 190 Balance 1039.169 574.073 388.197 Weight 74.8 kg 74.8 kg Intake: IV 864 916 162 0.9% NaCl with KCl 20 Meq 185 30 /l 1,000 ml @ 20 mls/hr IV .Q24H [facility] Rx#: [id number] Dextrose 5% in Water 1, 550 650 150 000 ml @ 25 mls/hr IV . Q24H [facility] with Sodium Bicarb (1 Meq/ml) 150 ml Rx#:[id number] Meropenem 2 gm In Sodium 100 100 Chloride 0.9% 100 ml @ 33 .3 mls/hr IVPB Q8H [facility] Rx #:[id number] Sodium Chloride 0.9% 1, 100 000 ml @ 75 mls/hr IV . [id number] [facility] Rx#:[id number] pressure bag 29 36 12 Intake, IV Titration 761.169 343.073 78.197 Amount Midazolam HCl 50 mg In 35.617 Sodium Chloride 0.9% 40 ml @ 2 MG/HR 2 mls/hr IV .Q24H [facility] Rx#:[id number] Norepinephrine 4 mg In 128.230 243.073 46.185 Sodium Chloride 0.9% 250 ml @ 0.03 MCG/KG/MIN 7. 777 mls/hr IV .Q24H [facility] Rx#:[id number] Potassium Chloride 20 meq 300 In Water For Injection 1 100ml.bag @ 50 mls/hr IVPB Q2H [facility] Rx#: [id number] Vasopressin 60 unit In 122.324 Sodium Chloride 0.9% 150 ml @ 0.03 UNITS/MIN 4.59 mls/hr IV .Q24H [facility] Rx#: [id number] propofoL 1,000 mg In 174.998 100 32.012 Empty Bag 1 bag @ 15 MCG/ KG/MIN 6.124 mls/hr IV . [id number] [facility] Rx#:[id number] Tube Feeding 949 20 0 Blood Product 0 310 338 Platelet Pheresis Pas 338 Psoralen Unit [id number] Rc Pheresis As-3 Unit 0 310 [id number] Other 230 Output: Gastric Drainage 800 550 Urine 365 465 190 Stool 600 Other: Voiding Method Indwelling Catheter Indwelling Catheter # Bowel Movements 1 1 ABP, PAP, CO, CI - Last Documented Arterial Blood Pressure 122/50 - Exam Physical Exam: Revealed 42-year-old female sedated, mechanically ventilated, in no distress. Head: Atraumatic, normocephalic. HEENT:[Neck is supple.] [No neck masses.] [No thyromegaly.] [No JVD.] Jaundiced. Chest: [symmetrical chest expansion, rhonchi and crackles noted bilaterally. Cardiac Exam: [Normal S1 and S2, no S3 gallop, no murmur.] Abdomen: [Soft,small ascites palpable. nontender, no megaly, no rebound, no guarding, normal bowel sounds.] Extremities: [No clubbing, 1+ bipedal edema, no cyanosis.] Neurological Exam:could not be assessed patient is sedated. Psychiatric: Could not assess. - Labs CBC & Chem 7: 10/12/22 04:20 10/12/22 04:20 Labs: Abnormal Lab Results - Last 24 Hours (Table) 10/11/22 10/11/22 10/11/22 Range/Units 06:15 06:15 08:09 RBC (3.80-5.40) m/uL Hgb (11.4-16.0) gm/dL Hct (34.0-46.0) % MCV (80.0-100.0) fL MCH (25.0-35.0) pg RDW (11.5-15.5) % Plt Count (150-450) k/uL Lymphocytes # 0.7 L (1.0-4.8) k/uL Macrocytosis ABG pCO2 (35-45) mmHg ABG pO2 (83-108) mmHg ABG O2 Saturation (94-97) % Chloride (98-107) mmol/L BUN (7-17) mg/dL Creatinine (0.52-1.04) mg/dL POC Glucose (mg/dL) (70-110) mg/dL Calcium (8.4-10.2) mg/dL Ammonia (<30) umol/L Procalcitonin 7.45 H (0.02-0.09) ng/mL Random Vancomycin ug/mL Crossmatch See Detail 10/11/22 10/11/22 10/11/22 Range/Units 08:09 11:53 17:48 RBC (3.80-5.40) m/uL Hgb (11.4-16.0) gm/dL Hct (34.0-46.0) % MCV (80.0-100.0) fL MCH (25.0-35.0) pg RDW (11.5-15.5) % Plt Count (150-450) k/uL Lymphocytes # 0.6 L (1.0-4.8) k/uL Macrocytosis ABG pCO2 (35-45) mmHg ABG pO2 (83-108) mmHg ABG O2 Saturation (94-97) % Chloride (98-107) mmol/L BUN (7-17) mg/dL Creatinine (0.52-1.04) mg/dL POC Glucose (mg/dL) 143 H 129 H (70-110) mg/dL Calcium (8.4-10.2) mg/dL Ammonia (<30) umol/L Procalcitonin (0.02-0.09) ng/mL Random Vancomycin ug/mL Crossmatch 10/11/22 10/12/22 10/12/22 Range/Units 23:42 04:20 04:20 RBC 2.10 L (3.80-5.40) m/uL Hgb 8.4 L D (11.4-16.0) gm/dL Hct 25.0 L (34.0-46.0) % MCV 119.3 H D (80.0-100.0) fL MCH 40.2 H (25.0-35.0) pg RDW 24.0 H (11.5-15.5) % Plt Count 19 L* (150-450) k/uL Lymphocytes # (1.0-4.8) k/uL Macrocytosis Marked A ABG pCO2 (35-45) mmHg ABG pO2 (83-108) mmHg ABG O2 Saturation (94-97) % Chloride (98-107) mmol/L BUN (7-17) mg/dL Creatinine 2.19 H (0.52-1.04) mg/dL POC Glucose (mg/dL) 114 H (70-110) mg/dL Calcium (8.4-10.2) mg/dL Ammonia (<30) umol/L Procalcitonin (0.02-0.09) ng/mL Random Vancomycin 51.5 H* ug/mL Crossmatch 10/12/22 10/12/22 10/12/22 Range/Units 04: 04: 05:40 RBC (3.80-5.40) m/uL Hgb (11.4-16.0) gm/dL Hct (34.0-46.0) % MCV (80.0-100.0) fL MCH (25.0-35.0) pg RDW (11.5-15.5) % Plt Count (150-450) k/uL Lymphocytes # (1.0-4.8) k/uL Macrocytosis ABG pCO2 34 L (35-45) mmHg ABG pO2 53 L* (83-108) mmHg ABG O2 Saturation 89.6 L (94-97) % Chloride 114 H (98-107) mmol/L BUN 38 H (7-17) mg/dL Creatinine 2.17 H (0.52-1.04) mg/dL POC Glucose (mg/dL) (70-110) mg/dL Calcium 7.2 L (8.4-10.2) mg/dL Ammonia 46 H (<30) umol/L Procalcitonin (0.02-0.09) ng/mL Random Vancomycin ug/mL Crossmatch Microbiology - Last 24 Hours (Table) 10/09/22 01:00 Blood Culture Gram Stain - Preliminary Blood Blood Culture - Preliminary Escherichia coli Staphylococcus aureus Alpha Hemolytic Streptococcus 10/11/22 06:08 Blood Culture - Preliminary Blood No Growth after 24 hours 10/09/22 20:35 Blood Culture Gram Stain - Preliminary Blood 10/09/22 00:23 Gram Stain - Final Sputum Sputum Culture - Final Methicillin resist S. aureus Assessment and Plan Assessment: impression: Acute hypoxic respiratory failure secondary to sepsis, septic shock, MRSA pneumonia or staph aureus pneumonia, based on sputum cultures. Acute bacteremia as noted on positive blood cultures showing E. coli, staph aureus, and streptococcus, considering this is a multifactorial picture this is most likely contamination. Acute metabolic and lactic acidosis secondary to sepsis and septic shock Acute alcohol withdrawal History of polysubstance abuse Hepatic encephalopathy, continues to have elevated ammonia level. In spite of treatment. Chronic thrombocytopenia related to alcoholism Chronic macrocytic anemia Liver cirrhosis secondary to alcohol. Acute kidney injury secondary to sepsis and septic shock. Recommendation: Continue ventilatory support. He for any weaning, patient remains critically ill. Continue hemodynamic support. Patient is on norepinephrine and vasopressin. Continue lactulose and monitor ammonia level. Continue rifaximin. Continue antibiotics as per ID on the case. continue bronchodilators Continue GI and DVT prophylaxis Continue bicarb drip however cut down to 25 mL per hour. And likely discontinue in the next 24 hours Decrease IV fluids as the patient seems to be fluid overloaded. 80 mg of Lasix given IV push today. Close monitoring by nephrology regarding her kidney status. Continuenutritional support/enteral feeding prognosis is guarded. Patient is critically ill. Critical care time is over 30 minutes Time with Patient: Greater than 30
--- NOTE | 2022-10-12 14:51 | P.PN ---
Subjective Progress Note Date: 10/12/22 Principal diagnosis: Hepatic encephalopathy This is a 42-year-old female who is brought in by EMS yesterday for altered mental status changes. History is obtained from the chart and the nurse. Patient has a long-standing history of alcohol abuse and known alcoholic liver disease. She just returned home from vacation over the weekend and her had noticed that she was acting different and much slower. Apparently progressively got worse and she was brought in for further evaluation. Reportedly her last drink was on Saturday. On admission patient was noted to have lactic acid of 10.4. She was admitted to the ICU and subsequently sedated and intubated for airway protection. Nursing stating she is on high dose of propofol and still having difficulty with sedating her. Patient was also positive for benzodiazepine and marijuana. Serum alcohol level less than 10. Patient currently remains sedated and intubated. She's had decreased urine output, has been tachycardic and hypotensive. Elevated ammonia level, patient was started on lactulose per rectum and nursing reported no bowel movements after 2 doses. Currently on meropenem and vancomycin. Admitting labs WBC 7.7 hemoglobin 8.9 hematocrit 26 platelet count 67,000 INR 3.8 sodium 132 potassium 4.0 creatinine 0.9 glucose 66 plasma lactic acid 10.4 total bilirubin 9.7, AST 5053 ALT 28 alkaline phosphatase 129 ammonia 69 Part of patient's workup consisted of a CT abdomen and pelvis with contrast that reported multiple findings including scattered airspace of P cities concerning for infectious/inflammatory process. Airspace opacities in the anterior upper lungs are somewhat wedge-shaped. Consider correlation with d-dimer and setting of pulmonary infarct. Hepatic status is within hepatic likely. Correlate with serum markers for hepatitis. Nondistended large bowel was circumferential stevenson pected pseudo-wall thickening with submucosal fat deposition. Alternatively findings could represent component of colitis, hyperemic gastric mucosa correlate for gastritis Ultrasound gallbladder reported fatty infiltrative liver. Gallbladder sludge with mild wall thickening measuring up to 0.4 cm and pericholecystic fluid 10/10/2022: Patient is seen and examined in the ICU. She remains sedated and intubated, Versed was started on patient. she is on CIWA protocol. On norepinephrine and propofol. Xifaxan was started yesterday. Patient reportedly had several bowel movements on a yesterday afternoon, however has not had any through the evening. LFTs trending down. Ammonia level improving. Today's labs WBC 5.0 hemoglobin 8.3 hematocrit 23 platelet count 51,000 INR 2.2 minutes at 190 total bilirubin 6.4 AST 424 ALT 64 alkaline phosphatase 97 ammonia level 85. 10/11/2022: Patient seen and examined in the ICU. She remained sedated and intubated. She is continues to be on pressors. Decreased urine output now 10- 15 mL/h. Blood cultures are positive for E. coli, staph aureus and Streptococcus. Patient had drop in hemoglobin today to 6.8, platelet count 24,000. Ammonia remains elevated at 89. Total bilirubin 6.0 AST 371 ALT 81 alkaline phosphatase 120. Nursing is reporting 3-4 bowel movements throughout last night and today, liquid. 10/12/2022: Patient seen and examined in the ICU. She remains sedated and intubated, however a sedation has been weaned. But there is been no response from patient. Patient with abdominal distention, nursing reports no bowel sounds in 2 feedings have been discontinued. Urine output stable. Patient having loose bowel movements. Ammonia level improved to 49. Objective - Vital Signs Vital signs: Vital Signs Temp 98.4 F 10/12/22 13:47 Pulse 99 10/12/22 14:00 Resp 24 10/12/22 14:00 BP 108/47 10/12/22 13:47 Pulse Ox 92 L 10/12/22 14:00 FiO2 50 10/12/22 12:00 Intake & Output 10/11/22 10/12/22 10/12/22 18:59 06:59 18:59 Intake Total 2804.169 1589.073 891.953 Output Total 1765 1015 410 Balance 1039.169 574.073 481.953 Weight 74.8 kg 74.8 kg Intake: IV 864 916 276 0.9% NaCl with KCl 20 Meq 185 30 /l 1,000 ml @ 20 mls/hr IV .Q24H [facility] Rx#: [id number] Dextrose 5% in Water 1, 550 650 225 000 ml @ 25 mls/hr IV . Q24H [facility] with Sodium Bicarb (1 Meq/ml) 150 ml Rx#:[id number] Meropenem 2 gm In Sodium 100 100 Chloride 0.9% 100 ml @ 33 .3 mls/hr IVPB Q8H [facility] Rx #:[id number] Sodium Chloride 0.9% 1, 100 30 000 ml @ 75 mls/hr IV . [id number] [facility] Rx#:[id number] pressure bag 29 36 21 Intake, IV Titration 761.169 343.073 277.953 Amount Midazolam HCl 50 mg In 35.617 Sodium Chloride 0.9% 40 ml @ 2 MG/HR 2 mls/hr IV .Q24H [facility] Rx#:[id number] Norepinephrine 4 mg In 128.230 243.073 46.185 Sodium Chloride 0.9% 250 ml @ 0.03 MCG/KG/MIN 7. 777 mls/hr IV .Q24H [facility] Rx#:[id number] Potassium Chloride 20 meq 100 In Water For Injection 1 100ml.bag @ 50 mls/hr IVPB ONCE STA Rx#: [id number] Potassium Chloride 20 meq 300 In Water For Injection 1 100ml.bag @ 50 mls/hr IVPB Q2H [facility] Rx#: [id number] Vasopressin 60 unit In 122.324 99.756 Sodium Chloride 0.9% 150 ml @ 0.03 UNITS/MIN 4.59 mls/hr IV .Q24H [facility] Rx#: [id number] propofoL 1,000 mg In 174.998 100 32.012 Empty Bag 1 bag @ 15 MCG/ KG/MIN 6.124 mls/hr IV . [id number] [facility] Rx#:[id number] Tube Feeding 949 20 0 Blood Product 0 310 338 Platelet Pheresis Pas 0 Psoralen Unit [id number] Platelet Pheresis Pas 338 Psoralen Unit [id number] Rc Pheresis As-3 Unit 0 310 [id number] Other 230 Output: Gastric Drainage 800 550 Urine 365 465 410 Stool 600 Other: Voiding Method Indwelling Catheter Indwelling Catheter Indwelling Catheter # Bowel Movements 1 1 ABP, PAP, CO, CI - Last Documented Arterial Blood Pressure 115/48 - Exam General appearance: The patient is sedated and intubated. HET: Head is normocephalic and atraumatic. Conjunctiva pink. Sclera icteric. Neck: Supple without lymphadenopathy. Abdomen: Distended, decreased bowel sounds. Extremities: Normal skin color and turgor. Bilateral pedal edema. Skin: No rashes, jaundice. Neurological: Sedated and intubated. - Labs CBC & Chem 7: 10/12/22 04:20 10/12/22 04:20 Labs: Abnormal Lab Results - Last 24 Hours (Table) 10/11/22 10/11/22 10/11/22 Range/Units 06:15 08:09 17:48 RBC (3.80-5.40) m/uL Hgb (11.4-16.0) gm/dL Hct (34.0-46.0) % MCV (80.0-100.0) fL MCH (25.0-35.0) pg RDW (11.5-15.5) % Plt Count (150-450) k/uL Macrocytosis ABG pCO2 (35-45) mmHg ABG pO2 (83-108) mmHg ABG O2 Saturation (94-97) % Chloride (98-107) mmol/L BUN (7-17) mg/dL Creatinine (0.52-1.04) mg/dL POC Glucose (mg/dL) 129 H (70-110) mg/dL Calcium (8.4-10.2) mg/dL Ammonia (<30) umol/L Procalcitonin 7.45 H (0.02-0.09) ng/mL Random Vancomycin ug/mL Crossmatch See Detail 10/11/22 10/12/22 10/12/22 Range/Units 23:42 04:20 04:20 RBC 2.10 L (3.80-5.40) m/uL Hgb 8.4 L D (11.4-16.0) gm/dL Hct 25.0 L (34.0-46.0) % MCV 119.3 H D (80.0-100.0) fL MCH 40.2 H (25.0-35.0) pg RDW 24.0 H (11.5-15.5) % Plt Count 19 L* (150-450) k/uL Macrocytosis Marked A ABG pCO2 (35-45) mmHg ABG pO2 (83-108) mmHg ABG O2 Saturation (94-97) % Chloride (98-107) mmol/L BUN (7-17) mg/dL Creatinine 2.19 H (0.52-1.04) mg/dL POC Glucose (mg/dL) 114 H (70-110) mg/dL Calcium (8.4-10.2) mg/dL Ammonia (<30) umol/L Procalcitonin (0.02-0.09) ng/mL Random Vancomycin 51.5 H* ug/mL Crossmatch 10/12/22 10/12/22 10/12/22 Range/Units 04:20 04:20 05:40 RBC (3.80-5.40) m/uL Hgb (11.4-16.0) gm/dL Hct (34.0-46.0) % MCV (80.0-100.0) fL MCH (25.0-35.0) pg RDW (11.5-15.5) % Plt Count (150-450) k/uL Macrocytosis ABG pCO2 34 L (35-45) mmHg ABG pO2 53 L* (83-108) mmHg ABG O2 Saturation 89.6 L (94-97) % Chloride 114 H (98-107) mmol/L BUN 38 H (7-17) mg/dL Creatinine 2.17 H (0.52-1.04) mg/dL POC Glucose (mg/dL) (70-110) mg/dL Calcium 7.2 L (8.4-10.2) mg/dL Ammonia 46 H (<30) umol/L Procalcitonin (0.02-0.09) ng/mL Random Vancomycin ug/mL Crossmatch Microbiology - Last 24 Hours (Table) 10/09/22 01:00 Blood Culture Gram Stain - Preliminary Blood Blood Culture - Preliminary Escherichia coli Staphylococcus aureus Alpha Hemolytic Streptococcus 10/11/22 06:08 Blood Culture - Preliminary Blood No Growth after 24 hours 10/09/22 20:35 Blood Culture Gram Stain - Preliminary Blood Assessment and Plan (1) Hepatic encephalopathy Narrative/Plan: 42-year-old female with a normal history of alcohol abuse and alcoholic liver disease who presented to the emergency department with altered mental status changes. Patient had elevated ammonia level at 69, hypercoagulable with anemia and thrombocytopenia consistent with underlying liver disease. Patient continues to drink last drink was Saturday, some component also likely related to withdrawal symptoms. Continue current ICU management, will add Xifaxan, continue with lactulose and titrate to have 3-4 bowel movements daily. Continue with current medical management. Continue lactulose, Xifaxan, titrate lactulose to have 3-4 bowel movements daily. Daily labs. Current Visit: Yes Status: Acute Code(s): K76.82 - HEPATIC ENCEPHALOPATHY SNOMED Code(s): 17928040 (2) Alcoholic liver disease Current Visit: Yes Status: Acute Code(s): K70.9 - ALCOHOLIC LIVER DISEASE, UNSPECIFIED SNOMED Code(s): 33233347 (3) Lactic acidosis Current Visit: Yes Status: Acute Code(s): E87.2 - ACIDOSIS * DO NOT USE * SNOMED Code(s): 17037789 (4) ETOH abuse Current Visit: No Status: Acute Code(s): F10.10 - ALCOHOL ABUSE, UNCOMPLICATED SNOMED Code(s): 15064705 (5) Thrombocytopenia Current Visit: Yes Status: Acute Code(s): D69.6 - THROMBOCYTOPENIA, UNSPECI FIED SNOMED Code(s): 273163720 (6) Anemia Current Visit: No Status: Acute Code(s): D64.9 - ANEMIA, UNSPECIFIED SNOMED Code(s): 968356181 (7) Sepsis Current Visit: Yes Status: Acute Code(s): A41.9 - SEPSIS, UNSPECIFIED ORGANISM SNOMED Code(s): 04710646 Plan: 1. Continue symptomatic and supportive care 2. Continue medical management and recommendations from cv tech. 3. Continue lactulose as ordered, titrate to 3-4 bowel movements daily 4. Continue Xifaxin 550 mg twice a day 5. Daily CBC, transfuse for hemoglobin less than 7 6. Continue antibiotics per recommendations from infectious disease 7. Protonix 40 mg IV daily for GI prophylaxis Prognosis poor, significant other is trying to obtain guardianship. Thank you for allowing us to participate in the care of the patient, the GI service will sign off, gastroenterology will not be available at the hospital this weekend and through next week. If further evaluation by gastroenterology is required the patient will need transfer as per the primary team's discretion. Dr. Kaiden Brandon I agree with the dictator's note, documented as a scribe by Camilla Clay.
[2022-10-12] MEDS: VASOPRESSIN 60 UNIT in SODIUM CHLORIDE 0.9% 150 ML IV SCH (15:44)
--- NOTE | 2022-10-12 17:29 | P.PN ---
Subjective Progress Note Date: 10/12/22 Principal diagnosis: Sepsis and bacteremia Patient is a 42-year-old female with a past medical history significant for GERD reflux diabetic steatosis alcohol abuse presenting to the ER for evaluation of mental status changes , patient was noticed to be hypotensive afebrile and evidence of sepsis requiring intubation and admission to the ICU. On today's evaluation had that is 10/12/2022, the patient is afebrile this morning, the patient is off pressor support per the nursing staff, the patient FiO2 is stable at 50% and no significant purulent secretion through the ET and no diarrhea has been reported, did have high residual and tube feeds on hold , Objective - Vital Signs Vital signs: Vital Signs Temp 97.3 F L 10/12/22 13:17 Pulse 100 10/12/22 13:17 Resp 24 10/12/22 13:17 BP 112/49 10/12/22 13:17 Pulse Ox 92 L 10/12/22 13:17 FiO2 50 10/12/22 12:00 Intake & Output 10/11/22 10/12/22 10/12/22 18:59 06:59 18:59 Intake Total 2804.169 1589.073 853.953 Output Total 1765 1015 350 Balance 1039.169 574.073 503.953 Weight 74.8 kg 74.8 kg Intake: IV 864 916 238 0.9% NaCl with KCl 20 Meq 185 30 /l 1,000 ml @ 20 mls/hr IV .Q24H [facility] Rx#: [id number] Dextrose 5% in Water 1, 550 650 200 000 ml @ 25 mls/hr IV . Q24H [facility] with Sodium Bicarb (1 Meq/ml) 150 ml Rx#:[id number] Meropenem 2 gm In Sodium 100 100 Chloride 0.9% 100 ml @ 33 .3 mls/hr IVPB Q8H [facility] Rx #:[id number] Sodium Chloride 0.9% 1, 100 20 000 ml @ 75 mls/hr IV . [id number] [facility] Rx#:[id number] pressure bag 29 36 18 Intake, IV Titration 761.169 343.073 277.953 Amount Midazolam HCl 50 mg In 35.617 Sodium Chloride 0.9% 40 ml @ 2 MG/HR 2 mls/hr IV .Q24H [facility] Rx#:[id number] Norepinephrine 4 mg In 128.230 243.073 46.185 Sodium Chloride 0.9% 250 ml @ 0.03 MCG/KG/MIN 7. 777 mls/hr IV .Q24H [facility] Rx#:[id number] Potassium Chloride 20 meq 100 In Water For Injection 1 100ml.bag @ 50 mls/hr IVPB ONCE STA Rx#: [id number] Potassium Chloride 20 meq 300 In Water For Injection 1 100ml.bag @ 50 mls/hr IVPB Q2H [facility] Rx#: [id number] Vasopressin 60 unit In 122.324 99.756 Sodium Chloride 0.9% 150 ml @ 0.03 UNITS/MIN 4.59 mls/hr IV .Q24H [facility] Rx#: [id number] propofoL 1,000 mg In 174.998 100 32.012 Empty Bag 1 bag @ 15 MCG/ KG/MIN 6.124 mls/hr IV . [id number] [facility] Rx#:[id number] Tube Feeding 949 20 0 Blood Product 0 310 338 Platelet Pheresis Pas 0 Psoralen Unit [id number] Platelet Pheresis Pas 338 Psoralen Unit [id number] Rc Pheresis As-3 Unit 0 310 [id number] Other 230 Output: Gastric Drainage 800 550 Urine 365 465 350 Stool 600 Other: Voiding Method Indwelling Catheter Indwelling Catheter Indwelling Catheter # Bowel Movements 1 1 ABP, PAP, CO, CI - Last Documented Arterial Blood Pressure 115/50 - Exam GENERAL DESCRIPTION: A middle-aged female intubated on the vent RESPIRATORY SYSTEM: Unlabored breathing , decreased breath sounds at bases HEART: S1 S2 regular rate and rhythm , ABDOMEN: Soft , mild distention EXTREMITIES: No edema feet - Labs CBC & Chem 7: 10/12/22 04:20 10/12/22 04:20 Labs: Abnormal Lab Results - Last 24 Hours (Table) 10/11/22 10/11/22 10/11/22 Range/Units 06:15 08:09 08:09 RBC (3.80-5.40) m/uL Hgb (11.4-16.0) gm/dL Hct (34.0-46.0) % MCV (80.0-100.0) fL MCH (25.0-35.0) pg RDW (11.5-15.5) % Plt Count (150-450) k/uL Lymphocytes # 0.6 L (1.0-4.8) k/uL Macrocytosis ABG pCO2 (35-45) mmHg ABG pO2 (83-108) mmHg ABG O2 Saturation (94-97) % Chloride (98-107) mmol/L BUN (7-17) mg/dL Creatinine (0.52-1.04) mg/dL POC Glucose (mg/dL) (70-110) mg/dL Calcium (8.4-10.2) mg/dL Ammonia (<30) umol/L Procalcitonin 7.45 H (0.02-0.09) ng/mL Random Vancomycin ug/mL Crossmatch See Detail 10/11/22 10/11/22 10/12/22 Range/Units 17:48 23:42 04:20 RBC (3.80-5.40) m/uL Hgb (11.4-16.0) gm/dL Hct (34.0-46.0) % MCV (80.0-100.0) fL MCH (25.0-35.0) pg RDW (11.5-15.5) % Plt Count (150-450) k/uL Lymphocytes # (1.0-4.8) k/uL Macrocytosis ABG pCO2 (35-45) mmHg ABG pO2 (83-108) mmHg ABG O2 Saturation (94-97) % Chloride (98-107) mmol/L BUN (7-17) mg/dL Creatinine 2.19 H (0.52-1.04) mg/dL POC Glucose (mg/dL) 129 H 114 H (70-110) mg/dL Calcium (8.4-10.2) mg/dL Ammonia (<30) umol/L Procalcitonin (0.02-0.09) ng/mL Random Vancomycin 51.5 H* ug/mL Crossmatch 10/12/22 10/12/22 10/12/22 Range/Units 04:20 04:20 04:20 RBC 2.10 L (3.80-5.40) m/uL Hgb 8.4 L D (11.4-16.0) gm/dL Hct 25.0 L (34.0-46.0) % MCV 119.3 H D (80.0-100.0) fL MCH 40.2 H (25.0-35.0) pg RDW 24.0 H (11.5-15.5) % Plt Count 19 L* (150-450) k/uL Lymphocytes # (1.0-4.8) k/uL Macrocytosis Marked A ABG pCO2 (35-45) mmHg ABG pO2 (83-108) mmHg ABG O2 Saturation (94-97) % Chloride 114 H (98-107) mmol/L BUN 38 H (7-17) mg/dL Creatinine 2.17 H (0.52-1.04) mg/dL POC Glucose (mg/dL) (70-110) mg/dL Calcium 7.2 L (8.4-10.2) mg/dL Ammonia 46 H (<30) umol/L Procalcitonin (0.02-0.09) ng/mL Random Vancomycin ug/mL Crossmatch 10/12/22 Range/Units 05:40 RBC (3.80-5.40) m/uL Hgb (11.4-16.0) gm/dL Hct (34.0-46.0) % MCV (80.0-100.0) fL MCH (25.0-35.0) pg RDW (11.5-15.5) % Plt Count (150-450) k/uL Lymphocytes # (1.0-4.8) k/uL Macrocytosis ABG pCO2 34 L (35-45) mmHg ABG pO2 53 L* (83-108) mmHg ABG O2 Saturation 89.6 L (94-97) % Chloride (98-107) mmol/L BUN (7-17) mg/dL Creatinine (0.52-1.04) mg/dL POC Glucose (mg/dL) (70-110) mg/dL Calcium (8.4-10.2) mg/dL Ammonia (<30) umol/L Procalcitonin (0.02-0.09) ng/mL Random Vancomycin ug/mL Crossmatch Microbiology - Last 24 Hours (Table) 10/09/22 01:00 Blood Culture Gram Stain - Preliminary Blood Blood Culture - Preliminary Escherichia coli Staphylococcus aureus Alpha Hemolytic Streptococcus 10/11/22 06:08 Blood Culture - Preliminary Blood No Growth after 24 hours 10/09/22 20:35 Blood Culture Gram Stain - Preliminary Blood 10/09/22 00:23 Gram Stain - Final Sputum Sputum Culture - Final Methicillin resist S. aureus Assessment and Plan (1) Sepsis Current Visit: Yes Status: Acute Code(s): A41.9 - SEPSIS, UNSPECIFIED ORGANISM SNOMED Code(s): 42097882 Plan: 1patient was in the hospital with sepsis/septic shock in this patient who did have a fever hypotension elevated lactic acid source could be abdominal and there was evidence of some pericholecystic fluid on the ultrasound and possible component of pneumonia many to cover for the gram-positive as well as gram- negative pathogen 2-patient with cephalexin allergy that would limit the number of antibiotics safe to use 3-the patient sputum for Gram stain and culture are currently growing MRSA, vancomycin trough has been on the high side and is currently being managed by pharmacy he will monitor kidney function closely, the blood culture also growing staph aureus E. coli and Streptococcus with complete sensitivities pending 4-patient to continue with the vancomycin and meropenem to 1 g every 8 hours and monitor clinical course closely Time with Patient: Less than 30
[2022-10-12 18:40] LABS: Glucose,Whole Blood 86 mg/dL (70-110)
[2022-10-12] MEDS: INSULIN DETEMIR (LEVEMIR) 100 UNIT/ML SYR SQ SCH (20:41)
[2022-10-12 23:30] LABS: Glucose,Whole Blood 85 mg/dL (70-110)
[2022-10-13] MEDS: MEROPENEM 1 GM in SODIUM CHLORIDE 0.9% 100 ML IVPB SCH ×2 (00:15→10:27)
[2022-10-13] MEDS: ALBUTEROL NEBULIZED 2.5 MG/3 ML INHALATION SCH ×6 (00:24→19:50)
[2022-10-13] MEDS: IPRATROPIUM 0.5 MG/2.5 ML NEBU INHALATION SCH ×6 (00:24→19:50)
[2022-10-13] MEDS: INSULIN ASPART (NovoLOG) 100 UNIT/ML VIAL SQ SCH ×4 (02:28→19:16)
[2022-10-13 05:23] LABS: Anisocytosis Moderate; HCT 25.2 % (34.0-46.0); HGB 8.6 gm/dL (11.4-16.0); MCH 40.5 pg (25.0-35.0); MCHC 34.2 g/dL (31.0-37.0); MCV 118.2 fL (80.0-100.0); Macrocytosis Marked; Mean Platelet Volume 11.3; Poikilocytosis Slight; RBC 2.13 m/uL (3.80-5.40); RDW 23.4 % (11.5-15.5)
[2022-10-13 05:36] LABS: Albumin 2.2 g/dL (3.5-5.0); Calcium 7.5 mg/dL (8.4-10.2); Potassium 3.2 mmol/L (3.5-5.1); Total Bilirubin 9.2 mg/dL (0.2-1.3); Total Protein 5.5 g/dL (6.3-8.2)
[2022-10-13 05:43] LABS: Platelet Count 15 k/uL (150-450)
[2022-10-13] MEDS: 0.9% NACL WITH KCL 20 MEQ/L 1,000 ML IV SCH (05:48)
[2022-10-13] MEDS: DEXTROSE 5% IN WATER 1,000 ML with SODIUM BICARB (1 MEQ/ML) 150 ML IV SCH (05:48)
[2022-10-13 05:54] LABS: Vancomycin,Random 47.3 ug/mL
[2022-10-13 05:55] LABS: ABG Base Excess 1.7 mmol/L; ABG HCO3 25 mmol/L (21-25); ABG PCO2 32 mmHg (35-45); ABG PO2 145 mmHg (83-108); ABG TCO2 26 mmol/L (19-24); Allen Test Performed? Yes
[2022-10-13 06:13] LABS: Band Neutrophils % 3 %; Lymphocytes # (M) 1.44 k/uL (1.0-4.8); Metamyelocytes # (M) 0.06 k/uL (0); Metamyelocytes % 1 %; Monocytes # (M) 0.42 k/uL (0-1.0); Myelocytes # (M) 0.18 k/uL (0); Myelocytes % 3 %; Neutrophils % (M) 62 %; Nucleated Red Blood Cells 0 /100 WBC (0-0); Total Cells Counted 100
[2022-10-13 06:14] LABS: Dohle Bodies Present; Polychromasia Present; Target Cells Present; Toxic Vacuolation Present
--- NOTE | 2022-10-13 06:41 | XR ---
EXAMINATION TYPE: XR chest 1V portable DATE OF EXAM: 10/13/2022 COMPARISON: 10/12/2022 HISTORY: Tube placement TECHNIQUE: Single frontal view of the chest is obtained. FINDINGS: ET tube is 2.5 cm above the norberto. There is an NG tube in the stomach. There are diffuse fluffy airspace opacification with possible slight worsening compared to previous. There is no pleural effusion or pneumothorax. Heart size is normal. Osseous structures are intact. IMPRESSION: 1. ET tube 2.5 cm above the norberto. 2. Possibly slight interval worsening in diffuse acute cardiopulmonary disease.
--- NOTE | 2022-10-13 07:26 | PN ---
PROGRESS NOTE DATE OF SERVICE: 10/12/2022 SUBJECTIVE: This is a 42-year-old woman who was admitted after bilateral pneumonia, also had acute hypoxic respiratory failure. Patient was closely monitored. Patient has abdominal distention. The patient is currently full code. Prognosis is extremely guarded. Dr. Lopez is planning discussion with family at this time. PAST MEDICAL HISTORY: Could not be taken. REVIEW OF SYSTEMS: Could not be taken. CURRENT MEDICATIONS: Reviewed. OBJECTIVE: VITAL SIGNS: Pulse is 98, blood pressure 170/50, respirations 24. HEENT: Conjunctivae normal. CARDIOVASCULAR: S1, S2. RESPIRATIONS: Bilateral scattered rhonchi. ABDOMEN: Soft, obese, ascites present. LEGS: No edema. NERVOUS SYSTEM: No focal deficits. LABORATORY DATA: Platelets are 19, hemoglobin 8.4, rest of the labs are noted. ASSESSMENT: 1. Bilateral pneumonia with possibly aspiration with sepsis present on admission. 2. Acute hypoxic respiratory failure, on mechanical ventilation. 3. Anemia, thrombocytopenia secondary to alcohol possibly and chronic liver disease. 4. Alcoholic hepatitis and chronic liver disease and ascites and cirrhosis of liver. 5. Alcohol withdrawal syndrome and delirium tremens acutely. 6. Sinus tachycardia. 7. Multiple medical issues. 8. Acute renal failure. RECOMMENDATIONS: Recommended to continue current management, continue symptomatic treatment, continue withdrawal protocol. Repeat labs, otherwise bilirubin is elevated, showing a diminishing trend. The patient also had renal failure. Otherwise prognosis is extremely guarded because of multiple complex medical issues. Further recommendations to follow. See orders for further details. Please closely follow with multiple consultants. Further recommendations to follow. MMODL / IJN: [id number] /
[2022-10-13 07:47] LABS: Glucose,Whole Blood 63 mg/dL (70-110)
[2022-10-13] MEDS: LACTULOSE 20 GM/30 ML CUP PO SCH ×3 (07:56→20:04)
[2022-10-13] MEDS: CHLORHEXIDINE GLUCONATE 15 ML CUP MUCOUS MEM SCH ×2 (07:56→20:04)
[2022-10-13] MEDS: PANTOPRAZOLE 40 MG/10 ML VIAL IV SCH ×2 (07:56→20:04)
[2022-10-13] MEDS: RIFAXIMIN 550 MG TABLET PO SCH ×2 (07:57→20:04)
[2022-10-13] MEDS: THIAMINE 100 MG TAB PO SCH (07:57)
[2022-10-13] MEDS: VASOPRESSIN 60 UNIT in SODIUM CHLORIDE 0.9% 150 ML IV SCH (07:58)
[2022-10-13 08:08] LABS: Glucose,Whole Blood 104 mg/dL (70-110)
[2022-10-13 11:33] LABS: Glucose,Whole Blood 74 mg/dL (70-110)
--- NOTE | 2022-10-13 11:42 | P.PN ---
Subjective Progress Note Date: 10/13/22 Principal diagnosis: , acute hypoxic respiratory failure secondary to pneumonia, sepsis, and possible aspiration. I am seeing this patient in new consultation today 10/09/2022 in regard to ICU management. Patient is a 42-year-old white female with past medical history significant for alcoholic liver diseas alcohol abuse, and suspected polysubstance abuse. Patient initially presented to the emergency room with family for new onset altered mental status yesterday evening. Family also reports that the patient has been coughing. Her last alcoholic drink was Saturday night. There is also concern for alcohol withdrawal. Patient is jaundiced. On top of these concerns, patient was found to be hypotensive and tachycardic on arrival to the emergency room. She is also febrile. Chest x-ray on arrival showed multifocal airspace opacities. A follow-up CT of the chest abdomen and pelvis with contrast redemonstrated the multifocal skilled scattered airspace opacities with concern for possible pneumonia, there were concerns about wedge- shape of the opacities and we will correlate with d-dimer, hepatic steatosis with hepatomegaly, nondistended large bowel with suspected pseudo-wall thickening and submucosal fat deposition which could correlate with colitis, and hyperemic gastric mucosa which could correlate for gastritis. Nonenhanced brain CT showed no acute intracranial process. Apparently, the patient became agitated in the emergency room. This agitation was treated with Ativan, and then patient became unresponsive. Emergency room physician intubated the patient to ultimately protect her airway. Preintubation ABG showed a pO2 of 72, pCO2 31, pH of 7.39. The patient is currently on mechanical ventilator settings AC, respiratory rate 24, tidal volume 400, FiO2 100%, PEEP of 5. Post-intubation chest x-ray shows the tip of the ET tube 2 centimeters from the norberto, with an NG tube coursing below the diaphragm. Patient's hypotension has been treated with 3 crystalloid boluses, and the patient has required a norepinephrine infusion currently infusing at 0.08 mics per kilogram per minute through a right femoral central line. Propofol is infusing at 5 mics per per kg per minute. The patient is calm and synchronous with mechanical ventilator at this time. Patient also has normal saline infusing at 100 mL per hour. Patient's CBC on arrival showed a WBC count of 7.7, hemoglobin 8.9, hematocrit 26.7, platelet count 67,000. Coagulation profile was abnormal with an INR 3.8. No evidence of acute bleed. CMP on arrival showed a sodium 132, potassium 4, chloride 93, serum CO2 21, B1 12, creatinine 0.94, glucose 66. Hypoglycemia was corrected and is currently 137 mg/dL. Patient's ammonia level was elevated at 69 and she is receiving lactulose. Lactic acid was elevated at 10.4. LFTs are elevated AST 153, ALT 98, and alkaline phosphatase 129. Patient has a gallbladder ultrasound pending. At this time it is unknown if the patient ingested other substances as she has a history of polysubstance abuse. A urine toxicology screen has been ordered. Pancultures are pending. Patient is currently empirically covered with meropenem and vancomycin. Patient is febrile with a T- max of 100.1F. Patient was negative for influenza, RSV, COVID-19. Patient's condition at this time is critical. Patient is a full code. Patient was reevaluated today on 10/10/2022, remains in the ICU, intubated and mechanically ventilated. He is on assist control rate of 24th of 400 FiO2 50% and PEEP of 8 ABG showed a pO2 of 94 pCO2 32 pH of 7.33. Hemoglobin is 8.3 INR is 2.2. Endotracheal tube is noted to be distal in the trachea, and this will be pulled back about 1.5 cm. Patient remains on D5 45 at 50 mL per hour, is also on propofol at 75 norepinephrine at 0.06 vasopressin at 0.03 and fentanyl, patient is receiving enteral feeding. She is on vital HPI at 30 mL per hour, chest x-ray continues to show an infiltrate in the left lower lobe and right lower lobe endotracheal tube was noted to be relatively close to the norberto and this will be adjusted., sputum Gram stain is positive for presumptive staph aureus, final report is pending, patient remains on Merrem and vancomycin in the meantime Reevaluated today on 10/11/2022, patient remains in the ICU, intubated and mechanically ventilated. She is now on assist control rate of 24th of volume 400 FiO2 50% PEEP of 8 and a increased the PEEP to 10. ABG showed a pO2 of 59 pCO2 40 pH of 7.33. Patient is receiving a unit of packed RBC this morning for hemoglobin of 6.8. Her renal functioning seems to be deteriorating and worsening creatinine is up to 2.01. Liver enzymes remain elevated. Ammonia level is pending. Nephrology was consulted for her acute kidney injury, diabetes concern is the patient developing acute hepatorenal syndrome. Urine output remains marginal, Lasix was ordered to be given 1. Her IV fluid is Down to KVO, remains on sodium bicarb drip. Patient remains on norepinephrine at 0.12 she is also on Versed 3 mg/h, and propofol at 75 mcg/kg/m. 0.9 normal saline at 75 mL/h this will be cut down to KVO, and Lasix will be given. Chest x-ray is showing worsening in her consolidation in the left lower lobe, and I suspect there may be a component of groundglass appearance suggestive of mild interstitial edema and fluid overload. WBC count is 3.9 hemoglobin 6.8. Electrolytes are abnormal with sodium 145 potassium 2.8 bicarb is 20 BUN is 49 and creatinine 2.0 1 repeat ammonia level today is 89, remains quite elevated, patient is on lactulose and she is also on rifaximin. Reevaluated today on 10/12/2022, patient remains in the ICU intubated and m echanically ventilated. She is on assist control rate of 24-400 FiO2 50% and PEEP of 10 ABG showed a pO2 of 53 pCO2 34 pH of 7.44, hence FiO2 was increased to 50%*of 40%. Chest x-ray is showing improvement in her bilateraldisease especially on the left side. Remains on propofol at 25 mg/kg/m norepinephrine at 0.04 mcg/kg/m vasopressin 0.03 units per minute and bicarb drip which I cut it down to 25 mL per hour. 50 mL per hour. Patient remains on lactulose and ammonia level is down to 46 today. She will be receiving a dose of Lasix 80 mg IV push. I will discontinue propofol since the patient may not require much sedation. Patient is definitely not ready for any form of weaning or extubation at this point. Her platelets were noted to be quite low today, and I'm recommending 2 units of platelets to be given. His sputum came back positive for MRSA, and she remains covered with vancomycin. WBC count today is 5.4 hemoglobin is 8.4. Her platelets are 19,000. Electrolytes are normal except for sodium 145 BUN of 38 creatinine 2.17. Urine output is marginal, and I have recommended another dose of Lasix 80 mg to be given today IV push. Patient was reevaluated today on 10/13/2022, remains in the ICU, intubated and mechanically ventilated, patient is off sedation for the last 24 hours, no purposeful responses, no responses to any deep painful stimuli, she is on assist control rate of 24 volume 400 FiO2 40% PEEP is cut down from 10-8. ABG showed a pO2 of 145 pCO2 32 pH of 7.50. Platelets are low again, 15,017 the patient 2 units of platelets to be given today. We have ordered the bicarb to be discontinued since the bicarb level is normal. No functioning remains borderli ne about the same compared to yesterday. Patient is again off sedation for the last 24 hours. Chest x-ray continues to show bilateral airspace disease consistent with pneumonia, WBC count is 6.0 hemoglobin is 8.6, basic metabolic profile showed sodium of 146 potassium 3.2 chloride 111 bicarb 25 BUN 46 creatinine 2.44 liver enzymes remain a bit elevated with a total bilirubin of 9.2. Objective - Vital Signs Vital signs: Vital Signs Temp 97.6 F 10/13/22 08:00 Pulse 110 H 10/13/22 11:32 Resp 24 10/13/22 11:00 BP 97/42 10/12/22 18:30 Pulse Ox 97 10/13/22 11:00 FiO2 40 10/13/22 11:33 Intake & Output 10/12/22 10/13/22 10/13/22 18:59 06:59 18:59 Intake Total 1353.932 441.016 152 Output Total 990 645 80 Balance 363.932 -203.984 72 Weight 74.8 kg 76.4 kg Intake: IV 398 416 152 Dextrose 5% in Water 1, 325 300 100 000 ml @ 25 mls/hr IV . Q24H [facility] with Sodium Bicarb (1 Meq/ml) 150 ml Rx#:[id number] Sodium Chloride 0.9% 1, 40 80 40 000 ml @ 75 mls/hr IV . [id number] [facility] Rx#:[id number] pressure bag 33 36 12 Intake, IV Titration 290.932 25.016 Amount Norepinephrine 4 mg In 46.185 25.016 Sodium Chloride 0.9% 250 ml @ 0.03 MCG/KG/MIN 7. 777 mls/hr IV .Q24H [facility] Rx#:[id number] Potassium Chloride 20 meq 100 In Water For Injection 1 100ml.bag @ 50 mls/hr IVPB ONCE STA Rx#: [id number] Vasopressin 60 unit In 112.735 Sodium Chloride 0.9% 150 ml @ 0.03 UNITS/MIN 4.59 mls/hr IV .Q24H [facility] Rx#: [id number] propofoL 1,000 mg In 32.012 Empty Bag 1 bag @ 15 MCG/ KG/MIN 6.124 mls/hr IV . [id number] [facility] Rx#:[id number] Tube Feeding 0 Blood Product 665 Platelet Pheresis Pas 327 Psoralen Unit [id number] Platelet Pheresis Pas 338 Psoralen Unit [id number] Output: Gastric Drainage 200 Urine 590 445 80 Oral Regurgitation 400 Other: Voiding Method Indwelling Catheter Indwelling Catheter Indwelling Catheter # Bowel Movements 1 ABP, PAP, CO, CI - Last Documented Arterial Blood Pressure 125/47 - Exam Physical Exam: Revealed 42-year-old female sedated, mechanically ventilated, in no distress. Head: Atraumatic, normocephalic. HEENT:[Neck is supple.] [No neck masses.] [No thyromegaly.] [No JVD.] Jaundiced. Chest: [symmetrical chest expansion, rhonchi and crackles noted bilaterally. Cardiac Exam: [Normal S1 and S2, no S3 gallop, no murmur.] Abdomen: [Soft,small ascites palpable. nontender, no megaly, no rebound, no guarding, normal bowel sounds.] Extremities: [No clubbing, 2+ bipedal edema, no cyanosis.] Neurological Exam: Pupils are equally reactive to light, patient is not responding to any verbal or deep painful stimuli. Psychiatric: Could not assess. - Labs CBC & Chem 7: 10/13/22 05:05 10/13/22 05:05 Labs: Abnormal Lab Results - Last 24 Hours (Table) 10/13/22 10/13/22 10/13/22 Range/Units 05:05 05:05 05:53 RBC 2.13 L (3.80-5.40) m/uL Hgb 8.6 L (11.4-16.0) gm/dL Hct 25.2 L (34.0-46.0) % MCV 118.2 H (80.0-100.0) fL MCH 40.5 H (25.0-35.0) pg RDW 23.4 H (11.5-15.5) % Plt Count 15 L* (150-450) k/uL Metamyelocytes # (Man) 0.06 H (0) k/uL Myelocytes # (Manual) 0.18 H (0) k/uL Macrocytosis Marked A ABG pH 7.50 H (7.35-7.45) ABG pCO2 32 L (35-45) mmHg ABG pO2 145 H (83-108) mmHg ABG Total CO2 26 H (19-24) mmol/L ABG O2 Saturation 100.0 H (94-97) % Sodium 146 H (137-145) mmol/L Potassium 3.2 L (3.5-5.1) mmol/L Chloride 111 H (98-107) mmol/L BUN 46 H (7-17) mg/dL Creatinine 2.44 H (0.52-1.04) mg/dL Glucose 58 L (74-99) mg/dL POC Glucose (mg/dL) (70-110) mg/dL Calcium 7.5 L (8.4-10.2) mg/dL Total Bilirubin 9.2 H (0.2-1.3) mg/dL AST 242 H (14-36) U/L ALT 61 H (4-34) U/L Total Protein 5.5 L (6.3-8.2) g/dL Albumin 2.2 L (3.5-5.0) g/dL Random Vancomycin 47.3 H* ug/mL 10/13/22 Range/Units 07:46 RBC (3.80-5.40) m/uL Hgb (11.4-16.0) gm/dL Hct (34.0-46.0) % MCV (80.0-100.0) fL MCH (25.0-35.0) pg RDW (11.5-15.5) % Plt Count (150-450) k/uL Metamyelocytes # (Man) (0) k/uL Myelocytes # (Manual) (0) k/uL Macrocytosis ABG pH (7.35-7.45) ABG pCO2 (35-45) mmHg ABG pO2 (83-108) mmHg ABG Total CO2 (19-24) mmol/L ABG O2 Saturation (94-97) % Sodium (137-145) mmol/L Potassium (3.5-5.1) mmol/L Chloride (98-107) mmol/L BUN (7-17) mg/dL Creatinine (0.52-1.04) mg/dL Glucose (74-99) mg/dL POC Glucose (mg/dL) 63 L (70-110) mg/dL Calcium (8.4-10.2) mg/dL Total Bilirubin (0.2-1.3) mg/dL AST (14-36) U/L ALT (4-34) U/L Total Protein (6.3-8.2) g/dL Albumin (3.5-5.0) g/dL Random Vancomycin ug/mL Microbiology - Last 24 Hours (Table) 10/11/22 06:08 Blood Culture - Preliminary Blood No Growth after 48 hours 10/09/22 01:00 Blood Culture Gram Stain - Preliminary Blood Blood Culture - Preliminary Escherichia coli Staphylococcus aureus Alpha Hemolytic Streptococcus Assessment and Plan Assessment: impression: Acute hypoxic respiratory failure secondary to sepsis, septic shock, MRSA pneumonia or staph aureus pneumonia, based on sputum cultures. Acute bacteremia as noted on positive blood cultures showing E. coli, staph aureus, and streptococcus, considering this is a multifactorial picture this is most likely contamination. Acute metabolic and lactic acidosis secondary to sepsis and septic shock, resolved. Hence bicarb drip will be discontinued. Acute alcohol withdrawal History of polysubstance abuse Hepatic encephalopathy, on lactulose and rifaximin. Chronic thrombocytopenia related to alcoholism Chronic macrocytic anemia Liver cirrhosis secondary to alcohol. Acute kidney injury secondary to sepsis and septic shock. Multisystem organ failure as a complication of sepsis and septic shock. Recommendation: Continue ventilatory support. Patient is off pressors today. Continue lactulose and monitor ammonia level. Continue rifaximin. Continue antibiotics as per ID on the case. continue bronchodilators Continue GI and DVT prophylaxis Discontinue bicarb drip. Continue to diuresis intermittently on a daily basis. Continue nutritional support/enteral feeding Had a long discussion today with her significant other, CODE STATUS was changed to DO NOT RESUSCITATE CODE STATUS, her significant other is trying to get legal guardianship made very well aware of her poor prognostic picture and sometime next week if no improvement may have to resort to comfort care measures. Patient is critically ill. Critical care time is over 30 minutes Time with Patient: Greater than 30
--- NOTE | 2022-10-13 12:27 | P.PN ---
Subjective Progress Note Date: 10/13/22 Principal diagnosis: This is a 42-year-old female's seen consultation with acute kidney injury secondary to septic syndrome with multiple bacteria from her blood cultures including E. coli staph and strep. Source is possibly GI as well as pneumonia as per the infectious disease note. She remains intubated currently on 40% FiO2 off of all inotropes. On sodium bicarb drip. She is jaundiced. Her acute kidney injury continues to worsen. Although urine output is 1035 for the last 24 hours her creatinine has gone up from 0.9 on 10/09/2022 slowly to 2.4 as of this morning. Vital signs are rather stable blood pressure at times in the 90s but mostly in the 110s Afebrile Objective - Vital Signs Vital signs: Vital Signs Temp 97.6 F 10/13/22 08:00 Pulse 110 H 10/13/22 11:32 Resp 24 10/13/22 11:00 BP 97/42 10/12/22 18:30 Pulse Ox 97 10/13/22 11:00 FiO2 40 10/13/22 11:33 Intake & Output 10/12/22 10/13/22 10/13/22 18:59 06:59 18:59 Intake Total 1353.932 441.016 152 Output Total 990 645 80 Balance 363.932 -203.984 72 Weight 74.8 kg 76.4 kg Intake: IV 398 416 152 Dextrose 5% in Water 1, 325 300 100 000 ml @ 25 mls/hr IV . Q24H [facility] with Sodium Bicarb (1 Meq/ml) 150 ml Rx#:[id number] Sodium Chloride 0.9% 1, 40 80 40 000 ml @ 75 mls/hr IV . [id number] [facility] Rx#:[id number] pressure bag 33 36 12 Intake, IV Titration 290.932 25.016 Amount Norepinephrine 4 mg In 46.185 25.016 Sodium Chloride 0.9% 250 ml @ 0.03 MCG/KG/MIN 7. 777 mls/hr IV .Q24H [facility] Rx#:[id number] Potassium Chloride 20 meq 100 In Water For Injection 1 100ml.bag @ 50 mls/hr IVPB ONCE STA Rx#: [id number] Vasopressin 60 unit In 112.735 Sodium Chloride 0.9% 150 ml @ 0.03 UNITS/MIN 4.59 mls/hr IV .Q24H [facility] Rx#: [id number] propofoL 1,000 mg In 32.012 Empty Bag 1 bag @ 15 MCG/ KG/MIN 6.124 mls/hr IV . [id number] [facility] Rx#:[id number] Tube Feeding 0 Blood Product 665 Platelet Pheresis Pas 327 Psoralen Unit [id number] Platelet Pheresis Pas 338 Psoralen Unit [id number] Output: Gastric Drainage 200 Urine 590 445 80 Oral Regurgitation 400 Other: Voiding Method Indwelling Catheter Indwelling Catheter Indwelling Catheter # Bowel Movements 1 ABP, PAP, CO, CI - Last Documented Arterial Blood Pressure 125/47 On examination she is intubated on 40% FiO2 She is jaundiced. No facial asymmetry noted no JVP noted Lungs clear to auscultation fair air entry Heart sounds unremarkable Abdomen is soft slightly distended Extreme exam was trace edema Neurologically obtunded - Labs CBC & Chem 7: 10/13/22 05:05 10/13/22 05:05 Labs: Abnormal Lab Results - Last 24 Hours (Table) 10/13/22 10/13/22 10/13/22 Range/Units 05:05 05:05 05:53 RBC 2.13 L (3.80-5.40) m/uL Hgb 8.6 L (11.4-16.0) gm/dL Hct 25.2 L (34.0-46.0) % MCV 118.2 H (80.0-100.0) fL MCH 40.5 H (25.0-35.0) pg RDW 23.4 H (11.5-15.5) % Plt Count 15 L* (150-450) k/uL Metamyelocytes # (Man) 0.06 H (0) k/uL Myelocytes # (Manual) 0.18 H (0) k/uL Macrocytosis Marked A ABG pH 7.50 H (7.35-7.45) ABG pCO2 32 L (35-45) mmHg ABG pO2 145 H (83-108) mmHg ABG Total CO2 26 H (19-24) mmol/L ABG O2 Saturation 100.0 H (94-97) % Sodium 146 H (137-145) mmol/L Potassium 3.2 L (3.5-5.1) mmol/L Chloride 111 H (98-107) mmol/L BUN 46 H (7-17) mg/dL Creatinine 2.44 H (0.52-1.04) mg/dL Glucose 58 L (74-99) mg/dL POC Glucose (mg/dL) (70-110) mg/dL Calcium 7.5 L (8.4-10.2) mg/dL Total Bilirubin 9.2 H (0.2-1.3) mg/dL AST 242 H (14-36) U/L ALT 61 H (4-34) U/L Total Protein 5.5 L (6.3-8.2) g/dL Albumin 2.2 L (3.5-5.0) g/dL Random Vancomycin 47.3 H* ug/mL 10/13/22 Range/Units 07:46 RBC (3.80-5.40) m/uL Hgb (11.4-16.0) gm/dL Hct (34.0-46.0) % MCV (80.0-100.0) fL MCH (25.0-35.0) pg RDW (11.5-15.5) % Plt Count (150-450) k/uL Metamyelocytes # (Man) (0) k/uL Myelocytes # (Manual) (0) k/uL Macrocytosis ABG pH (7.35-7.45) ABG pCO2 (35-45) mmHg ABG pO2 (83-108) mmHg ABG Total CO2 (19-24) mmol/L ABG O2 Saturation (94-97) % Sodium (137-145) mmol/L Potassium (3.5-5.1) mmol/L Chloride (98-107) mmol/L BUN (7-17) mg/dL Creatinine (0.52-1.04) mg/dL Glucose (74-99) mg/dL POC Glucose (mg/dL) 63 L (70-110) mg/dL Calcium (8.4-10.2) mg/dL Total Bilirubin (0.2-1.3) mg/dL AST (14-36) U/L ALT (4-34) U/L Total Protein (6.3-8.2) g/dL Albumin (3.5-5.0) g/dL Random Vancomycin ug/mL Microbiology - Last 24 Hours (Table) 10/11/22 06:08 Blood Culture - Preliminary Blood No Growth after 48 hours 10/09/22 01:00 Blood Culture Gram Stain - Preliminary Blood Blood Culture - Preliminary Escherichia coli Staphylococcus aureus Alpha Hemolytic Streptococcus Assessment and Plan Assessment: Impression 1. Acute kidney injury secondary to sepsis with E. coli, staph aureus and alpha hemolytic strep growing in the blood cultures dated 10/09/2022 subsequent blood cultures 10/11/2022 is negative so far in 48 hours. Slightly worsening creatinine and urine output is maintained while signs are stable. Extremely high vancomycin levels are contributing to acute kidney injury 2. Mild degree of hypokalemia secondary to GI losses and metabolic alkalosis. 3. History of alcoholic liver disease, total bilirubin is going up to 9.2. LFTs are improving 4. Ammonia was high as of yesterday 5. Mild degree of respiratory and metabolic alkalosis, pH is 7.5 with a pO2 of 145, pCO2 of 32, and bicarb of 25. 6. Anemia hemoglobin is 8.6. 7. Severe thrombocytopenia worsening likely from alcoholism and sepsis Recommendation 1. Off Vanco, but high levels last 4 days 2. Discontinue sodium bicarbonate drip on because of the hyperkalemia as well as the alkalemia 3. Maintain IV fluids, lactated Ringer's at 60 and hour and monitor. Observation as her x-ray is showing diffuse infiltrate
[2022-10-13] MEDS: LACTATED RINGERS 1,000 ML IV SCH (12:45)
--- NOTE | 2022-10-13 14:49 | P.PN ---
Subjective Progress Note Date: 10/13/22 Principal diagnosis: Sepsis and bacteremia Patient is a 42-year-old female with a past medical history significant for GERD reflux diabetic steatosis alcohol abuse presenting to the ER for evaluation of mental status changes , patient was noticed to be hypotensive afebrile and evidence of sepsis requiring intubation and admission to the ICU. On today's evaluation had that is 10/13/2022, the patient remains to be afebrile, the patient is off pressor support , the patient FiO2 isdown to 400% and no significant purulent secretion through the ET and no diarrhea has reported by the nursing staff Objective - Vital Signs Vital signs: Vital Signs Temp 97.6 F 10/13/22 08:00 Pulse 112 H 10/13/22 14:00 Resp 24 10/13/22 14:00 BP 97/42 10/12/22 18:30 Pulse Ox 97 10/13/22 14:00 FiO2 40 10/13/22 11:33 Intake & Output 10/12/22 10/13/22 10/13/22 18:59 06:59 18:59 Intake Total 1353.932 441.016 336 Output Total 990 645 135 Balance 363.932 -203.984 201 Weight 74.8 kg 76.4 kg 76.4 kg Intake: IV 398 416 336 Dextrose 5% in Water 1, 325 300 125 000 ml @ 25 mls/hr IV . Q24H FUENTES with Sodium Bicarb (1 Meq/ml) 150 ml Rx#:[id number] Lactated Ringers 1,000 ml 120 @ 60 mls/hr IV .[id number] FUENTES Rx#:[id number] Sodium Chloride 0.9% 1, 40 80 70 000 ml @ 75 mls/hr IV . [id number] FUENTES Rx#:[id number] pressure bag 33 36 21 Intake, IV Titration 290.932 25.016 Amount Norepinephrine 4 mg In 46.185 25.016 Sodium Chloride 0.9% 250 ml @ 0.03 MCG/KG/MIN 7. 777 mls/hr IV .Q24H FUENTES Rx#:[id number] Potassium Chloride 20 meq 100 In Water For Injection 1 100ml.bag @ 50 mls/hr IVPB ONCE STA Rx#: [id number] Vasopressin 60 unit In 112.735 Sodium Chloride 0.9% 150 ml @ 0.03 UNITS/MIN 4.59 mls/hr IV .Q24H FUENTES Rx#: [id number] propofoL 1,000 mg In 32.012 Empty Bag 1 bag @ 15 MCG/ KG/MIN 6.124 mls/hr IV . [id number] FUENTES Rx#:[id number] Tube Feeding 0 Blood Product 665 Platelet Pheresis Pas 327 Psoralen Unit [id number] Platelet Pheresis Pas 338 Psoralen Unit [id number] Output: Gastric Drainage 200 Urine 590 445 135 Oral Regurgitation 400 Other: Voiding Method Indwelling Catheter Indwelling Catheter Indwelling Catheter # Bowel Movements 1 ABP, PAP, CO, CI - Last Documented Arterial Blood Pressure 118/43 - Exam GENERAL DESCRIPTION: A middle-aged female intubated on the vent RESPIRATORY SYSTEM: Unlabored breathing , decreased breath sounds at bases HEART: S1 S2 regular rate and rhythm , ABDOMEN: Soft , mild distention EXTREMITIES: No edema feet - Labs CBC & Chem 7: 10/13/22 05:05 10/13/22 05:05 Labs: Abnormal Lab Results - Last 24 Hours (Table) 10/13/22 10/13/22 10/13/22 Range/Units 05:05 05:05 05:53 RBC 2.13 L (3.80-5.40) m/uL Hgb 8.6 L (11.4-16.0) gm/dL Hct 25.2 L (34.0-46.0) % MCV 118.2 H (80.0-100.0) fL MCH 40.5 H (25.0-35.0) pg RDW 23.4 H (11.5-15.5) % Plt Count 15 L* (150-450) k/uL Metamyelocytes # (Man) 0.06 H (0) k/uL Myelocytes # (Manual) 0.18 H (0) k/uL Macrocytosis Marked A ABG pH 7.50 H (7.35-7.45) ABG pCO2 32 L (35-45) mmHg ABG pO2 145 H (83-108) mmHg ABG Total CO2 26 H (19-24) mmol/L ABG O2 Saturation 100.0 H (94-97) % Sodium 146 H (137-145) mmol/L Potassium 3.2 L (3.5-5.1) mmol/L Chloride 111 H (98-107) mmol/L BUN 46 H (7-17) mg/dL Creatinine 2.44 H (0.52-1.04) mg/dL Glucose 58 L (74-99) mg/dL POC Glucose (mg/dL) (70-110) mg/dL Calcium 7.5 L (8.4-10.2) mg/dL Total Bilirubin 9.2 H (0.2-1.3) mg/dL AST 242 H (14-36) U/L ALT 61 H (4-34) U/L Total Protein 5.5 L (6.3-8.2) g/dL Albumin 2.2 L (3.5-5.0) g/dL Random Vancomycin 47.3 H* ug/mL 10/13/22 Range/Units 07:46 RBC (3.80-5.40) m/uL Hgb (11.4-16.0) gm/dL Hct (34.0-46.0) % MCV (80.0-100.0) fL MCH (25.0-35.0) pg RDW (11.5-15.5) % Plt Count (150-450) k/uL Metamyelocytes # (Man) (0) k/uL Myelocytes # (Manual) (0) k/uL Macrocytosis ABG pH (7.35-7.45) ABG pCO2 (35-45) mmHg ABG pO2 (83-108) mmHg ABG Total CO2 (19-24) mmol/L ABG O2 Saturation (94-97) % Sodium (137-145) mmol/L Potassium (3.5-5.1) mmol/L Chloride (98-107) mmol/L BUN (7-17) mg/dL Creatinine (0.52-1.04) mg/dL Glucose (74-99) mg/dL POC Glucose (mg/dL) 63 L (70-110) mg/dL Calcium (8.4-10.2) mg/dL Total Bilirubin (0.2-1.3) mg/dL AST (14-36) U/L ALT (4-34) U/L Total Protein (6.3-8.2) g/dL Albumin (3.5-5.0) g/dL Random Vancomycin ug/mL Microbiology - Last 24 Hours (Table) 10/11/22 06:08 Blood Culture - Preliminary Blood No Growth after 48 hours 10/09/22 01:00 Blood Culture Gram Stain - Preliminary Blood Blood Culture - Preliminary Escherichia coli Staphylococcus aureus Alpha Hemolytic Streptococcus Assessment and Plan (1) Sepsis Current Visit: Yes Status: Acute Code(s): A41.9 - SEPSIS, UNSPECIFIED ORGANISM SNOMED Code(s): 57040219 Plan: 1patient was in the hospital with sepsis/septic shock in this patient who did have a fever hypotension elevated lactic acid source could be abdominal and t here was evidence of some pericholecystic fluid on the ultrasound and possible component of pneumonia many to cover for the gram-positive as well as gram- negative pathogen 2-patient with cephalexin allergy that would limit the number of antibiotics safe to use, per discussion with the pharmacist we should be able to use of the cephalosporin but not to Unasyn 3-the patient did have MRSA pneumonia and did have worsening of the kidney function and high vancomycin trough he would discontinue vancomycin and start the patient Zyvox 4as for as E. coli bacteremia could be related to the abdominal source and being is sensitive pathogen and per discussion with the pharmacist antibiotic will be switched over to Rocephin 2 g daily and the patient will monitor closely Time with Patient: Less than 30
[2022-10-13 19:02] LABS: Glucose,Whole Blood 100 mg/dL (70-110)
[2022-10-13] MEDS: LINEZOLID 600 MG in DEXTROSE/WATER 1 300ML.BAG IVPB SCH (20:04)
[2022-10-13] MEDS: INSULIN DETEMIR (LEVEMIR) 100 UNIT/ML SYR SQ SCH (20:04)
[2022-10-14 00:51] LABS: Glucose,Whole Blood 107 mg/dL (70-110)
[2022-10-14 00:52] LABS: Anisocytosis Moderate; HCT 22.3 % (34.0-46.0); HGB 7.7 gm/dL (11.4-16.0); MCH 40.6 pg (25.0-35.0); MCHC 34.4 g/dL (31.0-37.0); Macrocytosis Marked; Mean Platelet Volume 12.1; RBC 1.89 m/uL (3.80-5.40); RDW 23.2 % (11.5-15.5); WBC 5.3 k/uL (3.8-10.6)
[2022-10-14 00:55] LABS: Platelet Count 10 k/uL (150-450)
[2022-10-14 01:02] LABS: INR 1.5 (<1.2); Partial Thromboplastin Time 29.3 sec (22.0-30.0)
[2022-10-14] MEDS: IPRATROPIUM 0.5 MG/2.5 ML NEBU INHALATION SCH ×6 (01:08→19:56)
[2022-10-14] MEDS: ALBUTEROL NEBULIZED 2.5 MG/3 ML INHALATION SCH ×6 (01:08→19:56)
[2022-10-14] MEDS: NOREPINEPHRINE 4 MG in SODIUM CHLORIDE 0.9% 250 ML IV SCH ×2 (02:27→22:00)
[2022-10-14] MEDS: INSULIN ASPART (NovoLOG) 100 UNIT/ML VIAL SQ SCH ×4 (02:27→17:22)
[2022-10-14 05:44] LABS: ABG Base Excess 1.6 mmol/L; ABG HCO3 22 mmol/L (21-25); ABG TCO2 23 mmol/L (19-24); Allen Test Performed? Yes
[2022-10-14 05:53] LABS: ABG PCO2 19 mmHg (35-45); ABG PH 7.67 (7.35-7.45); ABG PO2 135 mmHg (83-108)
[2022-10-14 06:04] LABS: Glucose,Whole Blood 114 mg/dL (70-110)
--- NOTE | 2022-10-14 06:11 | XR ---
EXAMINATION TYPE: XR chest 1V portable DATE OF EXAM: 10/14/2022 COMPARISON: 10/13/2022 HISTORY: Tube placement TECHNIQUE: Single frontal view of the chest is obtained. FINDINGS: ET tube is 2 cm above the norberto. There is an NG tube within the stomach. The diffuse bilateral lung infiltrates are unchanged. There is no pneumothorax or large pleural effus ion. Heart size normal. The osseous structures are intact. IMPRESSION: 1. ET tube 2 cm above the norberto. 2. No change in the acute cardiopulmonary disease.
[2022-10-14 06:25] LABS: Anisocytosis Moderate; HCT 21.2 % (34.0-46.0); HGB 7.2 gm/dL (11.4-16.0); MCH 40.3 pg (25.0-35.0); MCHC 34.2 g/dL (31.0-37.0); MCV 117.9 fL (80.0-100.0); Macrocytosis Marked; Mean Platelet Volume 10.5; RDW 23.4 % (11.5-15.5); WBC 5.6 k/uL (3.8-10.6)
[2022-10-14 06:27] LABS: Platelet Count 11 k/uL (150-450)
[2022-10-14] MEDS: LACTATED RINGERS 1,000 ML IV SCH (07:07)
[2022-10-14] MEDS ORDERED: FUROSEMIDE 10 MG/ML 10 ML VIAL IV STA (08:01)
--- NOTE | 2022-10-14 08:09 | PN ---
PROGRESS NOTE DATE OF SERVICE: 10/13/2022 SUBJECTIVE: This is a 42-year-old woman who was admitted with bilateral pneumonia, sepsis, acute hypoxic respiratory failure, also the patient has abdominal distention and severe hepatitis at this time. The patient has thrombocytopenia. Bilirubin is also elevated up to 9.2, which is actually worsening. PAST MEDICAL HISTORY: Reviewed. REVIEW OF SYSTEMS: Could not be taken. CURRENT MEDICATIONS: Reviewed include Levemir doses and rest of medication noted. PHYSICAL EXAMINATION: VITAL SIGNS: Pulse is 112, blood pressure ntd CARDIOVASCULAR: S1, S2. RESPIRATORY: A few scattered rhonchi. ABDOMEN: Soft. NERVOUS SYSTEM: No focal deficits. LABORATORY DATA: Reviewed. ASSESSMENT: 1. Bilateral pneumonia with possible aspiration with sepsis present on admission. 2. Acute hypoxic respiratory failure, on mechanical ventilation. 3. Anemia thrombocytopenia secondary to alcoholic liver disease and possible cirrhosis of liver. 4. Alcoholic hepatitis with chronic liver disease and ascites, cirrhosis of liver. 5. Alcohol withdrawal syndrome and delirium tremens present on admission. 6. Sinus tachycardia. 7. Multiple medical issues. 8. Acute renal failure. 9. No code, no CPR RECOMMENDATIONS: Continue current symptomatic treatment. Otherwise, the prognosis is extremely poor, but we will continue antibiotics. Culture is negative so far. Dr. Bull is following the patient closely. Otherwise, the family is also trying to get legal guardianship and further recommendations to follow. MMODL / IJN: [id number] / MTDD
[2022-10-14 08:13] LABS: ABG Base Excess 0.7 mmol/L; ABG HCO3 25 mmol/L (21-25); ABG Oxygen Saturation 99.7 % (94-97); ABG PCO2 36 mmHg (35-45); ABG PH 7.44 (7.35-7.45); ABG PO2 144 mmHg (83-108); ABG TCO2 26 mmol/L (19-24); Allen Test Performed? Yes
[2022-10-14 08:43] LABS: Calcium 7.5 mg/dL (8.4-10.2); Potassium 3.2 mmol/L (3.5-5.1)
[2022-10-14 09:50] LABS: Albumin 2.2 g/dL (3.5-5.0); Total Bilirubin 9.6 mg/dL (0.2-1.3); Total Protein 5.2 g/dL (6.3-8.2)
--- NOTE | 2022-10-14 10:41 | P.PN ---
Subjective Progress Note Date: 10/14/22 Principal diagnosis: , acute hypoxic respiratory failure secondary to pneumonia, sepsis, and possible aspiration. I am seeing this patient in new consultation today 10/09/2022 in regard to ICU management. Patient is a 42-year-old white female with past medical history significant for alcoholic liver diseas alcohol abuse, and suspected polysubstance abuse. Patient initially presented to the emergency room with family for new onset altered mental status yesterday evening. Family also reports that the patient has been coughing. Her last alcoholic drink was Saturday night. There is also concern for alcohol withdrawal. Patient is jaundiced. On top of these concerns, patient was found to be hypotensive and tachycardic on arrival to the emergency room. She is also febrile. Chest x-ray on arrival showed multifocal airspace opacities. A follow-up CT of the chest abdomen and pelvis with contrast redemonstrated the multifocal skilled scattered airspace opacities with concern for possible pneumonia, there were concerns about wedge- shape of the opacities and we will correlate with d-dimer, hepatic steatosis with hepatomegaly, nondistended large bowel with suspected pseudo-wall thickening and submucosal fat deposition which could correlate with colitis, and hyperemic gastric mucosa which could correlate for gastritis. Nonenhanced brain CT showed no acute intracranial process. Apparently, the patient became agitated in the emergency room. This agitation was treated with Ativan, and then patient became unresponsive. Emergency room physician intubated the patient to ultimately protect her airway. Preintubation ABG showed a pO2 of 72, pCO2 31, pH of 7.39. The patient is currently on mechanical ventilator settings AC, respiratory rate 24, tidal volume 400, FiO2 100%, PEEP of 5. Post-intubation chest x-ray shows the tip of the ET tube 2 centimeters from the norberto, with an NG tube coursing below the diaphragm. Patient's hypotension has been treated with 3 crystalloid boluses, and the patient has required a norepinephrine infusion currently infusing at 0.08 mics per kilogram per minute through a right femoral central line. Propofol is infusing at 5 mics per per kg per minute. The patient is calm and synchronous with mechanical ventilator at this time. Patient also has normal saline infusing at 100 mL per hour. Patient's CBC on arrival showed a WBC count of 7.7, hemoglobin 8.9, hematocrit 26.7, platelet count 67,000. Coagulation profile was abnormal with an INR 3.8. No evidence of acute bleed. CMP on arrival showed a sodium 132, potassium 4, chloride 93, serum CO2 21, B1 12, creatinine 0.94, glucose 66. Hypoglycemia was corrected and is currently 137 mg/dL. Patient's ammonia level was elevated at 69 and she is receiving lactulose. Lactic acid was elevated at 10.4. LFTs are elevated AST 153, ALT 98, and alkaline phosphatase 129. Patient has a gallbladder ultrasound pending. At this time it is unknown if the patient ingested other substances as she has a history of polysubstance abuse. A urine toxicology screen has been ordered. Pancultures are pending. Patient is currently empirically covered with meropenem and vancomycin. Patient is febrile with a T- max of 100.1F. Patient was negative for influenza, RSV, COVID-19. Patient's condition at this time is critical. Patient is a full code. Patient was reevaluated today on 10/10/2022, remains in the ICU, intubated and mechanically ventilated. He is on assist control rate of 24th of 400 FiO2 50% and PEEP of 8 ABG showed a pO2 of 94 pCO2 32 pH of 7.33. Hemoglobin is 8.3 INR is 2.2. Endotracheal tube is noted to be distal in the trachea, and this will be pulled back about 1.5 cm. Patient remains on D5 45 at 50 mL per hour, is also on propofol at 75 norepinephrine at 0.06 vasopressin at 0.03 and fentanyl, patient is receiving enteral feeding. She is on vital HPI at 30 mL per hour, chest x-ray continues to show an infiltrate in the left lower lobe and right lower lobe endotracheal tube was noted to be relatively close to the norberto and this will be adjusted., sputum Gram stain is positive for presumptive staph aureus, final report is pending, patient remains on Merrem and vancomycin in the meantime Reevaluated today on 10/11/2022, patient remains in the ICU, intubated and mechanically ventilated. She is now on assist control rate of 24th of volume 400 FiO2 50% PEEP of 8 and a increased the PEEP to 10. ABG showed a pO2 of 59 pCO2 40 pH of 7.33. Patient is receiving a unit of packed RBC this morning for hemoglobin of 6.8. Her renal functioning seems to be deteriorating and worsening creatinine is up to 2.01. Liver enzymes remain elevated. Ammonia level is pending. Nephrology was consulted for her acute kidney injury, diabetes concern is the patient developing acute hepatorenal syndrome. Urine output remains marginal, Lasix was ordered to be given 1. Her IV fluid is Down to KVO, remains on sodium bicarb drip. Patient remains on norepinephrine at 0.12 she is also on Versed 3 mg/h, and propofol at 75 mcg/kg/m. 0.9 normal saline at 75 mL/h this will be cut down to KVO, and Lasix will be given. Chest x-ray is showing worsening in her consolidation in the left lower lobe, and I suspect there may be a component of groundglass appearance suggestive of mild interstitial edema and fluid overload. WBC count is 3.9 hemoglobin 6.8. Electrolytes are abnormal with sodium 145 potassium 2.8 bicarb is 20 BUN is 49 and creatinine 2.0 1 repeat ammonia level today is 89, remains quite elevated, patient is on lactulose and she is also on rifaximin. Reevaluated today on 10/12/2022, patient remains in the ICU intubated and m echanically ventilated. She is on assist control rate of 24-400 FiO2 50% and PEEP of 10 ABG showed a pO2 of 53 pCO2 34 pH of 7.44, hence FiO2 was increased to 50%*of 40%. Chest x-ray is showing improvement in her bilateraldisease especially on the left side. Remains on propofol at 25 mg/kg/m norepinephrine at 0.04 mcg/kg/m vasopressin 0.03 units per minute and bicarb drip which I cut it down to 25 mL per hour. 50 mL per hour. Patient remains on lactulose and ammonia level is down to 46 today. She will be receiving a dose of Lasix 80 mg IV push. I will discontinue propofol since the patient may not require much sedation. Patient is definitely not ready for any form of weaning or extubation at this point. Her platelets were noted to be quite low today, and I'm recommending 2 units of platelets to be given. His sputum came back positive for MRSA, and she remains covered with vancomycin. WBC count today is 5.4 hemoglobin is 8.4. Her platelets are 19,000. Electrolytes are normal except for sodium 145 BUN of 38 creatinine 2.17. Urine output is marginal, and I have recommended another dose of Lasix 80 mg to be given today IV push. Patient was reevaluated today on 10/13/2022, remains in the ICU, intubated and mechanically ventilated, patient is off sedation for the last 24 hours, no purposeful responses, no responses to any deep painful stimuli, she is on assist control rate of 24 volume 400 FiO2 40% PEEP is cut down from 10-8. ABG showed a pO2 of 145 pCO2 32 pH of 7.50. Platelets are low again, 15,017 the patient 2 units of platelets to be given today. We have ordered the bicarb to be discontinued since the bicarb level is normal. No functioning remains borderli ne about the same compared to yesterday. Patient is again off sedation for the last 24 hours. Chest x-ray continues to show bilateral airspace disease consistent with pneumonia, WBC count is 6.0 hemoglobin is 8.6, basic metabolic profile showed sodium of 146 potassium 3.2 chloride 111 bicarb 25 BUN 46 creatinine 2.44 liver enzymes remain a bit elevated with a total bilirubin of 9.2. Reevaluated today on 10/25/19 patient is sitting in the ICU, intubated and mechanically ventilated. Her ventilator settings were adjusted today, she is now on assist control rate of 18, volume 400 FiO2 40% and PEEP of 8 and her ABG showed a pO2 of 144 pCO2 36 pH of 7.44 hence the patient had FiO2 cut down to 3 5%. Chest x-ray continues to show diffuse bilateral infiltrates, relatively unchanged. Labs were reviewed she has a sodium 149 potassium 3.2 chloride 114 bicarb is 24 BUN is 55 creatinine 2.40. WBC count is 5.6 hemoglobin 7.2 hematocrit 21.2 platelets are down to 11,000, and the patient is receiving 2 units of platelets today. Patient had an episode of vaginal bleeding yesterday, it was basically a large blood clot coming out of her vaginal area. Patient had a test that came back negative. Patient is getting worse, she developing worsening abdominal distention, worsening bipedal edema, anasarca, ascites, he is also developing worsening neurological status and I'm recommending a CT of the brain to be done today, and a neurological consultation. Antibiotics curran, the patient was seen by infectious disease, and she is now on Rocephin and she is on linezolid/Zyvox. Her IV fluid has been changed to D5W cerebellar are mostly because of her hypernatremia that was noted on the labs today. Patient remains on lactulose, ammonia level is pending today. She is also on rifaximin.. Patient remains off sedation completely. Objective - Vital Signs Vital signs: Vital Signs Temp 97.6 F 10/14/22 08:30 Pulse 107 H 10/14/22 08:30 Resp 18 10/14/22 08:30 BP 138/52 10/14/22 08:30 Pulse Ox 98 10/14/22 08:30 FiO2 35 10/14/22 08:19 Intake & Output 10/13/22 10/14/22 10/14/22 18:59 06:59 18:59 Intake Total 952 1126 402 Output Total 235 310 20 Balance 717 816 382 Weight 76.4 kg 75.9 kg Intake: IV 628 876 73 Dextrose 5% in Water 1, 125 000 ml @ 25 mls/hr IV . Q24H FU[facility]ES with Sodium Bicarb (1 Meq/ml) 150 ml Rx#:[id number] Lactated Ringers 1,000 ml 360 720 60 @ 60 mls/hr IV .[id number] FUENTES Rx#:[id number] Sodium Chloride 0.9% 1, 110 120 10 000 ml @ 75 mls/hr IV . [id number] FUENTES Rx#:[id number] pressure bag 33 36 3 Blood Product 324 250 329 Platelet Pheresis Pas 324 Psoralen Unit [id number] Platelet Pheresis Pas 0 329 Psoralen Unit [id number] Platelet Pheresis Pas 0 Psoralen Unit [id number] Platelet Pheresis Pas 250 Psoralen Unit [id number] Output: Urine 235 310 20 Other: Voiding Method Indwelling Catheter Indwelling Catheter ABP, PAP, CO, CI - Last Documented Arterial Blood Pressure 135/52 - Exam Physical Exam: Revealed 42-year-old female sedated, mechanically ventilated, in no distress. Unresponsive to any stimuli. Head: Atraumatic, normocephalic. HEENT:[Neck is supple.] [No neck masses.] [No thyromegaly.] [No JVD.] Jaundiced. Negative corneal reflex Chest: [symmetrical chest expansion, rhonchi and crackles noted bilaterally. Cardiac Exam: [Normal S1 and S2, no S3 gallop, no murmur.] Abdomen: [Soft,small ascites palpable. nontender, no megaly, no rebound, no guarding, normal bowel sounds.] Extremities: [No clubbing, 3+ bipedal edema, no cyanosis.] Positive jaundice. Neurological Exam: Pupils are equally reactive to light, no response to any deep painful or verbal stimuli. Negative gag reflex. Negative corneal reflex Psychiatric: Could not assess. Skin: Diffuse purpura and petechial rashes noted - Labs CBC & Chem 7: 10/14/22 06:00 10/14/22 06:00 Labs: Abnormal Lab Results - Last 24 Hours (Table) 10/14/22 10/14/22 10/14/22 Range/Units 00:33 00:45 05:45 RBC 1.89 L (3.80-5.40) m/uL Hgb 7.7 L (11.4-16.0) gm/dL Hct 22.3 L (34.0-46.0) % MCV 118.0 H (80.0-100.0) fL MCH 40.6 H (25.0-35.0) pg RDW 23.2 H (11.5-15.5) % Plt Count 10 L* (150-450) k/uL Macrocytosis Marked A PT 15.0 H (9.0-12.0) sec INR 1.5 H (<1.2) ABG pH 7.67 H* (7.35-7.45) ABG pCO2 19 L* (35-45) mmHg ABG pO2 135 H (83-108) mmHg ABG Total CO2 (19-24) mmol/L ABG O2 Saturation 100.0 H (94-97) % Sodium (137-145) mmol/L Potassium (3.5-5.1) mmol/L Chloride (98-107) mmol/L BUN (7-17) mg/dL Creatinine (0.52-1.04) mg/dL Glucose (74-99) mg/dL POC Glucose (mg/dL) (70-110) mg/dL Calcium (8.4-10.2) mg/dL Total Bilirubin (0.2-1.3) mg/dL AST (14-36) U/L ALT (4-34) U/L Total Protein (6.3-8.2) g/dL Albumin (3.5-5.0) g/dL 10/14/22 10/14/22 10/14/22 Range/Units 06:00 06:00 06:01 RBC 1.80 L (3.80-5.40) m/uL Hgb 7.2 L (11.4-16.0) gm/dL Hct 21.2 L (34.0-46.0) % MCV 117.9 H (80.0-100.0) fL MCH 40.3 H (25.0-35.0) pg RDW 23.4 H (11.5-15.5) % Plt Count 11 L* (150-450) k/uL Macrocytosis Marked A PT (9.0-12.0) sec INR (<1.2) ABG pH (7.35-7.45) ABG pCO2 (35-45) mmHg ABG pO2 (83-108) mmHg ABG Total CO2 (19-24) mmol/L ABG O2 Saturation (94-97) % Sodium 149 H (137-145) mmol/L Potassium 3.2 L (3.5-5.1) mmol/L Chloride 114 H (98-107) mmol/L BUN 55 H (7-17) mg/dL Creatinine 2.40 H (0.52-1.04) mg/dL Glucose 108 H (74-99) mg/dL POC Glucose (mg/dL) 114 H (70-110) mg/dL Calcium 7.5 L (8.4-10.2) mg/dL Total Bilirubin 9.6 H (0.2-1.3) mg/dL AST 184 H (14-36) U/L ALT 43 H (4-34) U/L Total Protein 5.2 L (6.3-8.2) g/dL Albumin 2.2 L (3.5-5.0) g/dL 10/14/22 Range/Units 08:08 RBC (3.80-5.40) m/uL Hgb (11.4-16.0) gm/dL Hct (34.0-46.0) % MCV (80.0-100.0) fL MCH (25.0-35.0) pg RDW (11.5-15.5) % Plt Count (150-450) k/uL Macrocytosis PT (9.0-12.0) sec INR (<1.2) ABG pH (7.35-7.45) ABG pCO2 (35-45) mmHg ABG pO2 144 H (83-108) mmHg ABG Total CO2 26 H (19-24) mmol/L ABG O2 Saturation 99.7 H (94-97) % Sodium (137-145) mmol/L Potassium (3.5-5.1) mmol/L Chloride (98-107) mmol/L BUN (7-17) mg/dL Creatinine (0.52-1.04) mg/dL Glucose (74-99) mg/dL POC Glucose (mg/dL) (70-110) mg/dL Calcium (8.4-10.2) mg/dL Total Bilirubin (0.2-1.3) mg/dL AST (14-36) U/L ALT (4-34) U/L Total Protein (6.3-8.2) g/dL Albumin (3.5-5.0) g/dL Microbiology - Last 24 Hours (Table) 10/11/22 06:08 Blood Culture - Preliminary Blood No Growth after 72 hours 10/12/22 15:46 Blood Culture - Preliminary Blood No Growth after 24 hours 10/09/22 20:35 Blood Culture Gram Stain - Preliminary Blood Blood Culture - Preliminary Anaerobic Gm Positive Bacill 10/09/22 01:00 Blood Culture Gram Stain - Preliminary Blood Blood Culture - Preliminary Escherichia coli Methicillin resist S. aureus Alpha Hemolytic Streptococcus Anaerobic Gm Positive Bacill Assessment and Plan Assessment: impression: Acute hypoxic respiratory failure secondary to sepsis, septic shock, MRSA pneumonia or staph aureus pneumonia, based on sputum cultures. Acute bacteremia as noted on positive blood cultures showing E. coli, staph aureus, and streptococcus, considering this is a multifactorial picture this is most likely contamination. Acute metabolic and lactic acidosis secondary to sepsis and septic shock, resolved. Off bicarb drip at present. Acute alcohol withdrawal History of polysubstance abuse Hepatic encephalopathy, on lactulose and rifaximin. Ammonia level today is down to 19 hence I will discontinue lactulose. Chronic thrombocytopenia related to alcoholism Chronic macrocytic anemia Liver cirrhosis secondary to alcohol. Acute kidney injury secondary to sepsis and septic shock. Multisystem organ failure as a complication of sepsis and septic shock. Recommendation: Continue ventilatory support. Patient is off pressors today. Discontinue lactulose Continue rifaximin. Change IV to fluid D5 W, chronic at 50 mL an hour. Continue antibiotics as per ID on the case. Patient is now on Zyvox and on Rocephin. continue bronchodilators Continue GI prophylaxis Neurological consultation for her neurological status and CT of the brain Intermittent diuresis. Patient is quite swollen and edematous Resume nutritional support/enteral feeding Prognosis is extremely poor and guarded, significant other is well aware, DO NOT RESUSCITATE CODE STATUS. After discussing her condition with significant other Consider comfort care measures in the next couple of days Patient is critically ill. Critical care time is over 30 minutes
--- NOTE | 2022-10-14 10:57 | CT ---
EXAMINATION TYPE: CT brain wo con DATE OF EXAM: 10/14/2022 COMPARISON: 10/08/2022 HISTORY: Unresponsive neuro deficit CT DLP: 1125.4 mGycm. Automated Exposure Control for Dose Reduction was Utilized. TECHNIQUE: CT scan of the head is performed without contrast. FINDINGS: The ventricles, basal cisterns and sulci over the convexities within normal limits and there is no ma ss effect or shift of midline structures. No abnormal density is seen throughout the brain parenchyma and there is no acute intra or extra-axia l hemorrhage. The posterior fossa including the brainstem, fourth ventricle and cerebellar pontine angles appear gr ossly normal. The intraorbital contents appear normal and symmetric. Visualized paranasal sinuses are well aerated. There is moderate fluid in the mastoid air cells and m iddle ear cavities. IMPRESSION: 1. No acute bleed or mass effect. 2. Interval development of fluid in the mastoid air cells and middle ear cavities..
[2022-10-14] MEDS: CHLORHEXIDINE GLUCONATE 15 ML CUP MUCOUS MEM SCH ×2 (11:07→20:11)
[2022-10-14] MEDS: PANTOPRAZOLE 40 MG/10 ML VIAL IV SCH ×2 (11:07→20:11)
[2022-10-14] MEDS: THIAMINE 100 MG TAB PO SCH (11:08)
[2022-10-14] MEDS: LINEZOLID 600 MG in DEXTROSE/WATER 1 300ML.BAG IVPB SCH ×2 (11:09→20:11)
[2022-10-14] MEDS: RIFAXIMIN 550 MG TABLET PO SCH ×2 (11:09→20:11)
[2022-10-14] MEDS: DEXTROSE 5% IN WATER 1,000 ML IV SCH (11:12)
--- NOTE | 2022-10-14 11:24 | P.PN ---
Subjective Progress Note Date: 10/14/22 Principal diagnosis: This is a 42-year-old female's seen consultation with acute kidney injury secondary to septic syndrome with multiple bacteria from her blood cultures including E. coli staph and strep. Source is possibly GI as well as pneumonia as per the infectious disease note. She remains intubated currently on 35% improved from 40% FiO2, has been off of all inotropes. Sedation was discontinued on 10/12/2022 but she continues to be comatose. EEG has been ordered a computed tomography scan does not show any significant brain pathology. She is jaundiced., Has history of alcoholism Her acute kidney injury continues to worsen. Urine output is about 20-25 mL/h. She was given Lasix 60 mg IV this morning. Vital signs are rather stable blood pressure , Afebrile Objective - Vital Signs Vital signs: Vital Signs Temp 97.6 F 10/14/22 08:30 Pulse 107 H 10/14/22 08:30 Resp 18 10/14/22 08:30 BP 138/52 10/14/22 08:30 Pulse Ox 98 10/14/22 08:30 FiO2 35 10/14/22 08:19 Intake & Output 10/13/22 10/14/22 10/14/22 18:59 06:59 18:59 Intake Total 952 1126 402 Output Total 235 310 20 Balance 717 816 382 Weight 76.4 kg 75.9 kg Intake: IV 628 876 73 Dextrose 5% in Water 1, 125 000 ml @ 25 mls/hr IV . Q24H [facility] with Sodium Bicarb (1 Meq/ml) 150 ml Rx#:[id number] Lactated Ringers 1,000 ml 360 720 60 @ 60 mls/hr IV .[id number] [facility] Rx#:[id number] Sodium Chloride 0.9% 1, 110 120 10 000 ml @ 75 mls/hr IV . [id number] [facility] Rx#:[id number] pressure bag 33 36 3 Blood Product 324 250 329 Platelet Pheresis Pas 324 Psoralen Unit [id number] Platelet Pheresis Pas 0 329 Psoralen Unit [id number] Platelet Pheresis Pas 0 Psoralen Unit [id number] Platelet Pheresis Pas 250 Psoralen Unit [id number] Output: Urine 235 310 20 Other: Voiding Method Indwelling Catheter Indwelling Catheter ABP, PAP, CO, CI - Last Documented Arterial Blood Pressure 135/52 On examination she is intubated on 40% FiO2 She is jaundiced. No facial asymmetry noted no JVP noted Lungs clear to auscultation fair air entry Heart sounds unremarkable Abdomen is soft slightly distended Extreme exam was mild edema Neurologically obtunded - Labs CBC & Chem 7: 10/14/22 06:00 10/14/22 06:00 Labs: Abnormal Lab Results - Last 24 Hours (Table) 10/14/22 10/14/22 10/14/22 Range/Units 00:33 00:45 05:45 RBC 1.89 L (3.80-5.40) m/uL Hgb 7.7 L (11.4-16.0) gm/dL Hct 22.3 L (34.0-46.0) % MCV 118.0 H (80.0-100.0) fL MCH 40.6 H (25.0-35.0) pg RDW 23.2 H (11.5-15.5) % Plt Count 10 L* (150-450) k/uL Macrocytosis Marked A PT 15.0 H (9.0-12.0) sec INR 1.5 H (<1.2) ABG pH 7.67 H* (7.35-7.45) ABG pCO2 19 L* (35-45) mmHg ABG pO2 135 H (83-108) mmHg ABG Total CO2 (19-24) mmol/L ABG O2 Saturation 100.0 H (94-97) % Sodium (137-145) mmol/L Potassium (3.5-5.1) mmol/L Chloride (98-107) mmol/L BUN (7-17) mg/dL Creatinine (0.52-1.04) mg/dL Glucose (74-99) mg/dL POC Glucose (mg/dL) (70-110) mg/dL Calcium (8.4-10.2) mg/dL Total Bilirubin (0.2-1.3) mg/dL AST (14-36) U/L ALT (4-34) U/L Total Protein (6.3-8.2) g/dL Albumin (3.5-5.0) g/dL 10/14/22 10/14/2223 Range/Units 06:00 06:00 06:01 RBC 1.80 L (3.80-5.40) m/uL Hgb 7.2 L (11.4-16.0) gm/dL Hct 21.2 L (34.0-46.0) % MCV 117.9 H (80.0-100.0) fL MCH 40.3 H (25.0-35.0) pg RDW 23.4 H (11.5-15.5) % Plt Count 11 L* (150-450) k/uL Macrocytosis Marked A PT (9.0-12.0) sec INR (<1.2) ABG pH (7.35-7.45) ABG pCO2 (35-45) mmHg ABG pO2 (83-108) mmHg ABG Total CO2 (19-24) mmol/L ABG O2 Saturation (94-97) % Sodium 149 H (137-145) mmol/L Potassium 3.2 L (3.5-5.1) mmol/L Chloride 114 H (98-107) mmol/L BUN 55 H (7-17) mg/dL Creatinine 2.40 H (0.52-1.04) mg/dL Glucose 108 H (74-99) mg/dL POC Glucose (mg/dL) 114 H (70-110) mg/dL Calcium 7.5 L (8.4-10.2) mg/dL Total Bilirubin 9.6 H (0.2-1.3) mg/dL AST 184 H (14-36) U/L ALT 43 H (4-34) U/L Total Protein 5.2 L (6.3-8.2) g/dL Albumin 2.2 L (3.5-5.0) g/dL 10/14/22 Range/Units 08:08 RBC (3.80-5.40) m/uL Hgb (11.4-16.0) gm/dL Hct (34.0-46.0) % MCV (80.0-100.0) fL MCH (25.0-35.0) pg RDW (11.5-15.5) % Plt Count (150-450) k/uL Macrocytosis PT (9.0-12.0) sec INR (<1.2) ABG pH (7.35-7.45) ABG pCO2 (35-45) mmHg ABG pO2 144 H (83-108) mmHg ABG Total CO2 26 H (19-24) mmol/L ABG O2 Saturation 99.7 H (94-97) % Sodium (137-145) mmol/L Potassium (3.5-5.1) mmol/L Chloride (98-107) mmol/L BUN (7-17) mg/dL Creatinine (0.52-1.04) mg/dL Glucose (74-99) mg/dL POC Glucose (mg/dL) (70-110) mg/dL Calcium (8.4-10.2) mg/dL Total Bilirubin (0.2-1.3) mg/dL AST (14-36) U/L ALT (4-34) U/L Total Protein (6.3-8.2) g/dL Albumin (3.5-5.0) g/dL Microbiology - Last 24 Hours (Table) 10/11/22 06:08 Blood Culture - Preliminary Blood No Growth after 72 hours 10/12/22 15:46 Blood Culture - Preliminary Blood No Growth after 24 hours 10/09/22 20:35 Blood Culture Gram Stain - Preliminary Blood Blood Culture - Preliminary Anaerobic Gm Positive Bacill 10/09/22 01:00 Blood Culture Gram Stain - Preliminary Blood Blood Culture - Preliminary Escherichia coli Methicillin resist S. aureus Alpha Hemolytic Streptococcus Anaerobic Gm Positive Bacill Assessment and Plan Assessment: Impression 1. Acute kidney injury secondary to sepsis with E. coli, staph aureus and alpha hemolytic strep growing in the blood cultures dated 10/09/2022 subsequent blood cultures 10/11/2022 is negative so far in 48 hours. Slightly worsening creatinine and urine output is decreasing vital signs are stable. Extremely high vancomycin levels are contributing to acute kidney injury, she is off of vancomycin 2. Mild degree of hypokalemia secondary to GI losses and metabolic alkalosis. 3. History of alcoholic liver disease, total bilirubin is going up to 9.2 > 0.6. LFTs are improving 4. Ammonia was high as of yesterday 5. Mild degree of respiratory and metabolic alkalosis, pH is 7.5 with a pO2 of 145, pCO2 of 32, and bicarb of 25. 6. Anemia hemoglobin is 8.6, down further to 7.2 this morning. She has vaginal bleeding 7. Severe thrombocytopenia worsening likely from alcoholism and sepsis Recommendation 1. Patient will likely need dialysis and would be a candidate for renal replacement therapy if her neurological prognosis is reasonable. 2. Transfuse if needed 3. We will continue to follow closely.
[2022-10-14] MEDS: POTASSIUM CHLORIDE 20 MEQ in WATER FOR INJECTION 1 100ML.BAG IVPB SCH ×2 (12:21→14:33)
[2022-10-14 12:36] LABS: Glucose,Whole Blood 147 mg/dL (70-110)
[2022-10-14] MEDS: PHYTONADIONE 10 MG in SODIUM CHLORIDE 0.9% 50 ML IVPB SCH (14:06)
[2022-10-14] MEDS: MEROPENEM 1 GM in SODIUM CHLORIDE 0.9% 100 ML IVPB SCH ×2 (16:39→23:36)
--- NOTE | 2022-10-14 16:43 | P.PN ---
Subjective Progress Note Date: 10/14/22 Principal diagnosis: Sepsis and bacteremia Patient is a 42-year-old female with a past medical history significant for GERD reflux diabetic steatosis alcohol abuse presenting to the ER for evaluation of mental status changes , patient was noticed to be hypotensive afebrile and evidence of sepsis requiring intubation and admission to the ICU. On today's evaluation had that is 10/14/2022, the patient continues to be afebrile, the patient is hemodynamically stable and off pressor support , the patient FiO2 is down to 35% and no significant purulent secretion through the ET and no diarrhea has reported by the nursing staff Objective - Vital Signs Vital signs: Vital Signs Temp 96.5 F L 10/14/22 12:56 Pulse 99 10/14/22 14:00 Resp 18 10/14/22 14:00 BP 120/43 10/14/22 12:56 Pulse Ox 94 L 10/14/22 14:00 FiO2 35 10/14/22 14:00 Intake & Output 10/13/22 10/14/22 10/14/22 18:59 06:59 18:59 Intake Total 952 1126 1316 Output Total 235 310 55 Balance 022 350 7403 Weight 76.4 kg 75.9 kg Intake: IV 628 876 648 Dextrose 5% in Water 1, 125 000 ml @ 25 mls/hr IV . Q24H [facility] with Sodium Bicarb (1 Meq/ml) 150 ml Rx#:[id number] Dextrose 5% in Water 1, 100 000 ml @ 50 mls/hr IV . Q20H [facility] Rx#:[id number] Lactated Ringers 1,000 ml 360 720 180 @ 60 mls/hr IV .[id number] [facility] Rx#:[id number] Linezolid 600 mg In 300 Dextrose/Water 1 300ml. bag @ 150 mls/hr IVPB Q12HR [facility] Rx#:[id number] Sodium Chloride 0.9% 1, 110 120 50 000 ml @ 75 mls/hr IV . [id number] [facility] Rx#:[id number] pressure bag 33 36 18 Blood Product 324 250 668 Platelet Pheresis Pas 324 Psoralen Unit [id number] Platelet Pheresis Pas 0 329 Psoralen Unit [id number] Platelet Pheresis Pas 339 Psoralen Unit [id number] Platelet Pheresis Pas 250 Psoralen Unit [id number] Output: Urine 235 310 55 Other: Voiding Method Indwelling Catheter Indwelling Catheter ABP, PAP, CO, CI - Last Documented Arterial Blood Pressure 122/48 - Exam GENERAL DESCRIPTION: A middle-aged female intubated on the vent RESPIRATORY SYSTEM: Unlabored breathing , decreased breath sounds at bases HEART: S1 S2 regular rate and rhythm , ABDOMEN: Soft , mild distention EXTREMITIES: No edema feet - Labs CBC & Chem 7: 10/14/22 06:00 10/14/22 06:00 Labs: Abnormal Lab Results - Last 24 Hours (Table) 10/14/22 10/14/22 10/14/22 Range/Units 00:33 00:45 05:45 RBC 1.89 L (3.80-5.40) m/uL Hgb 7.7 L (11.4-16.0) gm/dL Hct 22.3 L (34.0-46.0) % MCV 118.0 H (80.0-100.0) fL MCH 40.6 H (25.0-35.0) pg RDW 23.2 H (11.5-15.5) % Plt Count 10 L* (150-450) k/uL Macrocytosis Marked A PT 15.0 H (9.0-12.0) sec INR 1.5 H (<1.2) ABG pH 7.67 H* (7.35-7.45) ABG pCO2 19 L* (35-45) mmHg ABG pO2 135 H (83-108) mmHg ABG Total CO2 (19-24) mmol/L ABG O2 Saturation 100.0 H (94-97) % Sodium (137-145) mmol/L Potassium (3.5-5.1) mmol/L Chloride (98-107) mmol/L BUN (7-17) mg/dL Creatinine (0.52-1.04) mg/dL Glucose (74-99) mg/dL POC Glucose (mg/dL) (70-110) mg/dL Calcium (8.4-10.2) mg/dL Total Bilirubin (0.2-1.3) mg/dL AST (14-36) U/L ALT (4-34) U/L Total Protein (6.3-8.2) g/dL Albumin (3.5-5.0) g/dL 10/14/22 10/14/22 10/14/22 Range/Units 06:00 06:00 06:01 RBC 1.80 L (3.80-5.40) m/uL Hgb 7.2 L (11.4-16.0) gm/dL Hct 21.2 L (34.0-46.0) % MCV 117.9 H (80.0-100.0) fL MCH 40.3 H (25.0-35.0) pg RDW 23.4 H (11.5-15.5) % Plt Count 11 L* (150-450) k/uL Macrocytosis Marked A PT (9.0-12.0) sec INR (<1.2) ABG pH (7.35-7.45) ABG pCO2 (35-45) mmHg ABG pO2 (83-108) mmHg ABG Total CO2 (19-24) mmol/L ABG O2 Saturation (94-97) % Sodium 149 H (137-145) mmol/L Potassium 3.2 L (3.5-5.1) mmol/L Chloride 114 H (98-107) mmol/L BUN 55 H (7-17) mg/dL Creatinine 2.40 H (0.52-1.04) mg/dL Glucose 108 H (74-99) mg/dL POC Glucose (mg/dL) 114 H (70-110) mg/dL Calcium 7.5 L (8.4-10.2) mg/dL Total Bilirubin 9.6 H (0.2-1.3) mg/dL AST 184 H (14-36) U/L ALT 43 H (4-34) U/L Total Protein 5.2 L (6.3-8.2) g/dL Albumin 2.2 L (3.5-5.0) g/dL 10/14/22 10/14/22 Range/Units 08:08 12:34 RBC (3.80-5.40) m/uL Hgb (11.4-16.0) gm/dL Hct (34.0-46.0) % MCV (80.0-100.0) fL MCH (25.0-35.0) pg RDW (11.5-15.5) % Plt Count (150-450) k/uL Macrocytosis PT (9.0-12.0) sec INR (<1.2) ABG pH (7.35-7.45) ABG pCO2 (35-45) mmHg ABG pO2 144 H (83-108) mmHg ABG Total CO2 26 H (19-24) mmol/L ABG O2 Saturation 99.7 H (94-97) % Sodium (137-145) mmol/L Potassium (3.5-5.1) mmol/L Chloride (98-107) mmol/L BUN (7-17) mg/dL Creatinine (0.52-1.04) mg/dL Glucose (74-99) mg/dL POC Glucose (mg/dL) 147 H (70-110) mg/dL Calcium (8.4-10.2) mg/dL Total Bilirubin (0.2-1.3) mg/dL AST (14-36) U/L ALT (4-34) U/L Total Protein (6.3-8.2) g/dL Albumin (3.5-5.0) g/dL Microbiology - Last 24 Hours (Table) 10/09/22 20:35 Blood Culture Gram Stain - Final Blood Blood Culture - Final Eubacterium lentum 10/09/22 01:00 Blood Culture Gram Stain - Final Blood Blood Culture - Final Escherichia coli Methicillin resist S. aureus Alpha Hemolytic Streptococcus Clostridium perfringens 10/11/22 06:08 Blood Culture - Preliminary Blood No Growth after 72 hours 10/12/22 15:46 Blood Culture - Preliminary Blood No Growth after 24 hours Assessment and Plan (1) Sepsis Current Visit: Yes Status: Acute Code(s): A41.9 - SEPSIS, UNSPECIFIED ORGANISM SNOMED Code(s): 96835180 Plan: 1patient was in the hospital with sepsis/septic shock in this patient who did have a fever hypotension elevated lactic acid source could be abdominal and there was evidence of some pericholecystic fluid on the ultrasound and possible component of pneumonia many to cover for the gram-positive as well as gram- negative pathogen 2-patient with cephalexin allergy that would limit the number of antibiotics safe to use, per discussion with the pharmacist not able to use Unasyn or Zosyn 3-the patient did have MRSA pneumonia and did have worsening of the kidney function and high vancomycin trough patient is currently on Zyvox 4patient also have some E. coli bacteremia and also growing Clostridium perfringens likely abdominal source we will discontinue Rocephin and start the patient on meropenem and monitor clinical course closely Time with Patient: Less than 30
[2022-10-14 17:22] LABS: Glucose,Whole Blood 118 mg/dL (70-110)
[2022-10-14] MEDS ORDERED: POTASSIUM CHLORIDE 20 MEQ in WATER FOR INJECTION 1 100ML.BAG IVPB STA (18:09)
--- NOTE | 2022-10-14 18:31 | P.CNNES ---
History of Present Illness Consult date: 10/14/22 Requesting physician: Mary Padron Reason for Consult: Unresponsive History of Present Illness: Patient is a 42-year-old female with history of alcoholism came to the hospital by ambulance on 10/08/2022 for altered mental status. Patient not able to provide any history, as she is intubated. Patient is off sedation since 10/12/2022. Patient is intubated and unresponsive. As per EMS flow sheet, when arrived, patient was found laying in bed, altered. Patient appeared jaundiced in color. Her pupils are dilated. Abdomen appears distended. mentioned that she is an alcoholic and hasn't had a drink since Saturday. Patient's mentioned that they just kay for 20 hours home from [place]. Patient has been in bed all day and has a new persistent dry cough. Patient is alert and oriented 1, GCS of 11 and only able to answer her name appropriately. Patient's vitals at the scene was blood pressure 126/68, pulse rate 145, respiration 52 saturation 95%. Patient' blood test shows initial hemoglobin 8.9, platelets 67. Most recent CBC with WBC 5.6 hemoglobin 7.2, platelets 11,000. TSH is decreased 0.0436, free T4 1.32. Initial ABG with pH of 7.67, pCO2 19, O2 135 and saturation 100%. Most recent ABG with pH of 7.44, pCO2 36 and saturation 99.7%. Sodium 149 potassium 3.2, BUN 55, creatinine 2.4. Patient's AST 853, ALT 98, ammonia 69. Patient's hepatitis panel is completely negative. Lactate 10.4 blood alcohol level negative. Urine drug screen positive for benzodiazepine and marijuana. UA is negative. Lactate 11.7. CT head showed no mass effect, no acute process. Interval development of fluid in the mastoid air cells and middle ear cavities. Review of Systems ROS unobtainable: due to endotracheal tube, due to mental status Past Medical History Past Medical History: GERD/Reflux Additional Past Medical History / Comment(s): Hepatic steatosis, ETOH abuse, gastritis, duodenitis, lower GI bleed, colitis, hemorrhoids, bronchitis, R side nephrolithiasis with surgery, bilateral ovarian cysts, neuropathy bilateral hands/legs and tops of both feet, hypokalemia, hypoalbumenemia, pancytopenia. History of Any Multi-Drug Resistant Organisms: None Reported Past Surgical History: Appendectomy, Orthopedic Surgery Additional Past Surgical History / Comment(s): Left knee surgeries-3 arthroscopic and one open, EGDs, colonoscopies, R sided lithotripsy. Past Anesthesia/Blood Transfusion Reactions: No Reported Reaction Additional Past Anesthesia/Blood Transfusion Reaction / Comment(s): Pt has received blood in past without reaction. Past Psychological History: Depression Smoking Status: Current every day smoker Past Alcohol Use History: Daily Past Drug Use History: Marijuana - Past Family History Mother Family Medical History: Diabetes Mellitus Additional Family Medical History / Comment(s): Borderline HTN Brother(s) Family Medical History: Diabetes Mellitus Father Family Medical History: Hypertension Additional Family Medical History / Comment(s): BOARDERLINE DM Medications and Allergies Home Medications Medication Instructions Recorded Confirmed Type Acetaminophen Tab [Tylenol] 650 mg PO Q6H PRN 06/18/22 10/08/22 History Loperamide HCl [Imodium A-D] 2 - 4 mg PO BID PRN 06/18/22 10/08/22 History Allergies Allergy/AdvReac Type Severity Reaction Status Date / Time cephalexin monohydrate Allergy Rash/Hives Verified 10/08/22 21:13 [From Keflex] codeine Allergy Rash/Hives Verified 10/08/22 21:13 Physical Examination - Vital Signs Vital Signs: Vital Signs Temp Pulse Resp BP Pulse Ox FiO2 10/14/22 15:09 96 10/14/22 15:06 35 10/14/22 14:00 99 18 94 L 35 10/14/22 13:00 100 18 95 35 10/14/22 12:56 96.5 F L 100 18 120/43 96 10/14/22 12:00 96.2 F L 98 18 97 35 10/14/22 11:33 100 10/14/22 11:18 98 10/14/22 11:16 35 10/14/22 11:00 101 H 18 94 L 35 10/14/22 10:40 97.7 F 98 18 123/44 97 10/14/22 10:20 97.9 F 98 18 126/47 97 10/14/22 10:00 102 H 18 98 35 10/14/22 09:00 105 H 18 98 40 10/14/22 08:30 97.6 F 107 H 18 138/52 98 10/14/22 08:25 106 H 10/14/22 08:19 35 10/14/22 08:10 110 H 10/14/22 08:00 108 H 20 97 40 10/14/22 07:47 40 10/14/22 07:00 105 H 18 98 10/14/22 06:51 97.8 F 105 H 18 135/52 98 10/14/22 06:50 40 10/14/22 06:31 97.8 F 105 H 24 129/50 98 10/14/22 06:21 97.9 F 105 H 24 125/49 98 10/14/22 06:00 106 H 24 98 10/14/22 05:00 106 H 24 98 10/14/22 04:19 107 H 10/14/22 04:15 40 10/14/22 04:00 98.2 F 107 H 24 96 40 10/14/22 03:00 105 H 24 98 10/14/22 02:00 105 H 24 97 10/14/22 01:18 110 H 10/14/22 01:08 106 H 10/14/22 01:03 40 10/14/22 01:00 105 H 24 96 10/14/22 00:00 98.0 F 106 H 24 96 40 10/13/22 23:00 109 H 24 96 10/13/22 22:14 112 H 24 97 10/13/22 22:00 112 H 24 95 10/13/22 21:00 112 H 24 95 10/13/22 20:31 98.1 F 112 H 24 118/46 95 10/13/22 20:11 98.2 F 112 H 24 121/47 96 10/13/22 20:02 98.2 F 112 H 24 114/45 97 10/13/22 20:00 98.2 F 113 H 24 98 40 10/13/22 19:50 111 H 10/13/22 19:41 40 10/13/22 19:07 98.2 F 113 H 24 119/45 96 10/13/22 19:00 112 H 19 96 10/13/22 18:00 114 H 16 96 10/13/22 17:00 114 H 24 96 10/13/22 16:39 112 H 24 122/46 96 10/13/22 16:19 98.2 F 113 H 24 114/47 96 04/08/23 16:00 98.2 F 112 H 24 97 40 10/13/22 15:26 102 H Intake and Output 10/14/22 10/14/22 10/14/22 06:59 14:59 22:59 Intake Total 584 1582 Output Total 215 125 Balance 369 1457 Intake: IV 584 914 Dextrose 5% in Water 1, 200 000 ml @ 50 mls/hr IV . Q20H [facility] Rx#:[id number] Lactated Ringers 1,000 ml 480 180 @ 60 mls/hr IV .[id number] [facility] Rx#:[id number] Linezolid 600 mg In 300 Dextrose/Water 1 300ml. bag @ 150 mls/hr IVPB Q12HR [facility] Rx#:[id number] Phytonadione 10 mg In 50 Sodium Chloride 0.9% 50 ml @ 100 mls/hr IVPB DAILY [facility] Rx#:[id number] Potassium Chloride 20 meq 100 In Water For Injection 1 100ml.bag @ 50 mls/hr IVPB Q2H [facility] Rx#: [id number] Sodium Chloride 0.9% 1, 80 60 000 ml @ 75 mls/hr IV . [id number] [facility] Rx#:[id number] pressure bag 24 24 Blood Product 0 668 Platelet Pheresis Pas 0 329 Psoralen Unit [id number] Platelet Pheresis Pas 339 Psoralen Unit [id number] Output: Urine 215 125 Other: Voiding Method Indwelling Catheter Indwelling Catheter # Bowel Movements 1 Weight 75.9 kg ABP, PAP, CO, CI - Last 8 Hours Arterial Blood Pressure 122/48 Arterial Blood Pressure 130/48 Arterial Blood Pressure 127/49 Arterial Blood Pressure 109/43 Arterial Blood Pressure 137/51 Arterial Blood Pressure 139/52 Arterial Blood Pressure 125/49 Patient is intubated, unresponsive. Patient is not on any sedation. Her pupils are 3 mm, very minimally reactive to light. Gaze is midline. No seizure-like activity noticed. Oculocephalics are absent. Corneals absent. She has no gag, no obvious cough. She does not respond to painful stimuli. Patient has severe peripheral edema, bruises and petichae. Reflexes are absent, plantars are flat. Results - Laboratory Findings CBC and BMP: 10/14/22 06:00 10/14/22 17:17 Abnormal Lab Findings: Abnormal Labs 10/08/22 10/08/22 10/08/22 20:35 20:35 20:35 RBC 2.08 L Hgb 8.9 L Hct 26.7 L MCV 128.8 H MCH 42.8 H MCHC RDW 18.2 H Plt Count 67 L Lymphocytes # 0.7 L Metamyelocytes # (Man) Myelocytes # (Manual) Macrocytosis Marked A PT 37.2 H INR 3.8 H APTT 41.5 H D-Dimer ABG pH ABG pCO2 ABG pO2 ABG HCO3 ABG Total CO2 ABG O2 Saturation VBG pH VBG pCO2 VBG HCO3 Sodium 132 L Potassium Chloride 93 L Carbon Dioxide 21 L BUN Creatinine Glucose 66 L POC Glucose (mg/dL) Plasma Lactic Acid Paulino Calcium 8.0 L Total Bilirubin 9.7 H Conjugated Bilirubin Unconjugated Bilirubin Delta Bilirubin AST 853 H ALT 98 H Alkaline Phosphatase 129 H Ammonia C-Reactive Protein Total Protein Albumin 2.8 L Procalcitonin TSH Ur Specific [place] Urine Protein Urine Blood Urine Bilirubin Urine Bacteria Hyaline Casts Urine Mucus Vancomycin Trough Random Vancomycin U Benzodiazepines Scrn U Marijuana (THC) Screen Crossmatch 10/08/22 10/08/22 10/08/22 20:35 20:35 22:12 RBC Hgb Hct MCV MCH MCHC RDW Plt Count Lymphocytes # Metamyelocytes # (Man) Myelocytes # (Manual) Macrocytosis PT INR APTT D-Dimer ABG pH ABG pCO2 31 L ABG pO2 72 L ABG HCO3 19 L ABG Total CO2 ABG O2 Saturation VBG pH 7.54 H VBG pCO2 23 L VBG HCO3 19 L Sodium Potassium Chloride Carbon Dioxide BUN Creatinine Glucose POC Glucose (mg/dL) Plasma Lactic Acid Paulino 10.4 H* Calcium Total Bilirubin Conjugated Bilirubin Unconjugated Bilirubin Delta Bilirubin AST ALT Alkaline Phosphatase Ammonia 69 H C-Reactive Protein Total Protein Albumin Procalcitonin TSH Ur Specific [place] Urine Protein Urine Blood Urine Bilirubin Urine Bacteria Hyaline Casts Urine Mucus Vancomycin Trough Random Vancomycin U Benzodiazepines Scrn U Marijuana (THC) Screen Crossmatch 10/08/22 10/09/22 10/09/22 23:13 00:17 00:31 RBC Hgb Hct MCV MCH MCHC RDW Plt Count Lymphocytes # Metamyelocytes # (Man) Myelocytes # (Manual) Macrocytosis PT INR APTT D-Dimer ABG pH ABG pCO2 ABG pO2 ABG HCO3 ABG Total CO2 ABG O2 Saturation VBG pH VBG pCO2 VBG HCO3 Sodium Potassium Chloride Carbon Dioxide BUN Creatinine Glucose POC Glucose (mg/dL) 137 H 111 H Plasma Lactic Acid Paulino 11.7 H* Calcium Total Bilirubin Conjugated Bilirubin Unconjugated Bilirubin Delta Bilirubin AST ALT Alkaline Phosphatase Ammonia C-Reactive Protein Total Protein Albumin Procalcitonin TSH Ur Specific [place] Urine Protein Urine Blood Urine Bilirubin Urine Bacteria Hyaline Casts Urine Mucus Vancomycin Trough Random Vancomycin U Benzodiazepines Scrn U Marijuana (THC) Screen Crossmatch 10/09/22 10/09/22 10/09/22 00:33 01:00 05:32 RBC 1.89 L Hgb 7.9 L Hct 24.6 L MCV 130.0 H MCH 41.7 H MCHC RDW 18.1 H Plt Count 53 L Lymphocytes # 0.5 L Metamyelocytes # (Man) Myelocytes # (Manual) Macrocytosis Marked A PT INR APTT D-Dimer ABG pH ABG pCO2 ABG pO2 ABG HCO3 19 L ABG Total CO2 ABG O2 Saturation 98.2 H VBG pH VBG pCO2 VBG HCO3 Sodium Potassium Chloride Carbon Dioxide BUN Creatinine Glucose POC Glucose (mg/dL) Plasma Lactic Acid Paulino Calcium Total Bilirubin Conjugated Bilirubin Unconjugated Bilirubin Delta Bilirubin AST ALT Alkaline Phosphatase Ammonia C-Reactive Protein Total Protein Albumin Procalcitonin TSH Ur Specific [place] >1.050 H Urine Protein Trace H Urine Blood Trace H Urine Bilirubin 2+ H Urine Bacteria Rare H Hyaline Casts 10 H Urine Mucus Rare H Vancomycin Trough Random Vancomycin U Benzodiazepines Scrn Detected H U Marijuana (THC) Screen Detected H Crossmatch 10/09/22 10/09/22 10/09/22 05:32 05:32 06:00 RBC Hgb Hct MCV MCH MCHC RDW Plt Count Lymphocytes # Metamyelocytes # (Man) Myelocytes # (Manual) Macrocytosis PT INR APTT D-Dimer ABG pH ABG pCO2 33 L ABG pO2 ABG HCO3 20 L ABG Total CO2 ABG O2 Saturation 98.0 H VBG pH VBG pCO2 VBG HCO3 Sodium 135 L Potassium Chloride Carbon Dioxide 17 L BUN Creatinine Glucose POC Glucose (mg/dL) Plasma Lactic Acid Paulino 6.5 H* Calcium 6.8 L Total Bilirubin 8.3 H Conjugated Bilirubin Unconjugated Bilirubin Delta Bilirubin AST 579 H ALT 68 H Alkaline Phosphatase Ammonia C-Reactive Protein Total Protein 5.6 L Albumin 2.3 L Procalcitonin TSH Ur Specific [place] Urine Protein Urine Blood Urine Bilirubin Urine Bacteria Hyaline Casts Urine Mucus Vancomycin Trough Random Vancomycin U Benzodiazepines Scrn U Marijuana (THC) Screen Crossmatch 10/09/22 10/09/22 10/09/22 07:18 07:18 09:20 RBC Hgb Hct MCV MCH MCHC RDW Plt Count Lymphocytes # Metamyelocytes # (Man) Myelocytes # (Manual) Macrocytosis PT INR APTT D-Dimer 2.32 H ABG pH ABG pCO2 ABG pO2 ABG HCO3 ABG Total CO2 ABG O2 Saturation VBG pH VBG pCO2 VBG HCO3 Sodium Potassium Chloride Carbon Dioxide BUN Creatinine Glucose POC Glucose (mg/dL) Plasma Lactic Acid Paulino Calcium Total Bilirubin 7.1 H Conjugated Bilirubin 3.4 H Unconjugated Bilirubin 1.5 H Delta Bilirubin 2.2 H AST ALT Alkaline Phosphatase Ammonia 97 H C-Reactive Protein Total Protein Albumin Procalcitonin TSH Ur Specific [place] Urine Protein Urine Blood Urine Bilirubin Urine Bacteria Hyaline Casts Urine Mucus Vancomycin Trough Random Vancomycin U Benzodiazepines Scrn U Marijuana (THC) Screen Crossmatch 10/09/22 10/09/22 10/09/22 09:20 09:20 12:40 RBC Hgb Hct MCV MCH MCHC RDW Plt Count Lymphocytes # Metamyelocytes # (Man) Myelocytes # (Manual) Macrocytosis PT INR APTT D-Dimer ABG pH ABG pCO2 ABG pO2 ABG HCO3 ABG Total CO2 ABG O2 Saturation VBG pH VBG pCO2 VBG HCO3 Sodium Potassium Chloride Carbon Dioxide BUN Creatinine Glucose POC Glucose (mg/dL) Plasma Lactic Acid Paulino 7.8 H* 7.3 H* Calcium Total Bilirubin Conjugated Bilirubin Unconjugated Bilirubin Delta Bilirubin AST ALT Alkaline Phosphatase Ammonia C-Reactive Protein Total Protein Albumin Procalcitonin TSH 0.436 L Ur Specific [place] Urine Protein Urine Blood Urine Bilirubin Urine Bacteria Hyaline Casts Urine Mucus Vancomycin Trough Random Vancomycin U Benzodiazepines Scrn U Marijuana (THC) Screen Crossmatch 10/09/22 10/09/22 10/09/22 12:40 16:00 17:56 RBC Hgb Hct MCV MCH MCHC RDW Plt Count Lymphocytes # Metamyelocytes # (Man) Myelocytes # (Manual) Macrocytosis PT 35.5 H INR 3.6 H APTT D-Dimer ABG pH ABG pCO2 ABG pO2 ABG HCO3 ABG Total CO2 ABG O2 Saturation VBG pH VBG pCO2 VBG HCO3 Sodium Potassium Chloride Carbon Dioxide BUN Creatinine Glucose POC Glucose (mg/dL) 59 L Plasma Lactic Acid Paulino 7.4 H* Calcium Total Bilirubin Conjugated Bilirubin Unconjugated Bilirubin Delta Bilirubin AST ALT Alkaline Phosphatase Ammonia C-Reactive Protein Total Protein Albumin Procalcitonin TSH Ur Specific [place] Urine Protein Urine Blood Urine Bilirubin Urine Bacteria Hyaline Casts Urine Mucus Vancomycin Trough Random Vancomycin U Benzodiazepines Scrn U Marijuana (THC) Screen Crossmatch 10/09/22 10/09/22 10/09/22 18:40 21:16 23:28 RBC Hgb Hct MCV MCH MCHC RDW Plt Count Lymphocytes # Metamyelocytes # (Man) Myelocytes # (Manual) Macrocytosis PT INR APTT D-Dimer ABG pH ABG pCO2 ABG pO2 ABG HCO3 ABG Total CO2 ABG O2 Saturation VBG pH VBG pCO2 VBG HCO3 Sodium Potassium Chloride Carbon Dioxide BUN Creatinine Glucose POC Glucose (mg/dL) 149 H 118 H 111 H Plasma Lactic Acid Paulino Calcium Total Bilirubin Conjugated Bilirubin Unconjugated Bilirubin Delta Bilirubin AST ALT Alkaline Phosphatase Ammonia C-Reactive Protein Total Protein Albumin Procalcitonin TSH Ur Specific [place] Urine Protein Urine Blood Urine Bilirubin Urine Bacteria Hyaline Casts Urine Mucus Vancomycin Trough Random Vancomycin U Benzodiazepines Scrn U Marijuana (THC) Screen Crossmatch 10/10/22 10/10/22 10/10/22 04:30 04:30 04:30 RBC 1.75 L Hgb 8.3 L Hct 23.1 L MCV 132.4 H MCH 47.5 H MCHC RDW 17.8 H Plt Count 51 L Lymphocytes # Metamyelocytes # (Man) Myelocytes # (Manual) Macrocytosis Marked A PT INR APTT D-Dimer ABG pH ABG pCO2 ABG pO2 ABG HCO3 ABG Total CO2 ABG O2 Saturation VBG pH VBG pCO2 VBG HCO3 Sodium Potassium Chloride 110 H Carbon Dioxide 14 L BUN 20 H Creatinine 1.77 H Glucose 107 H POC Glucose (mg/dL) Plasma Lactic Acid Paulino Calcium 6.7 L Total Bilirubin 6.4 H Conjugated Bilirubin Unconjugated Bilirubin Delta Bilirubin AST 424 H ALT 64 H Alkaline Phosphatase Ammonia 85 H C-Reactive Protein Total Protein 5.3 L Albumin 2.2 L Procalcitonin TSH Ur Specific [place] Urine Protein Urine Blood Urine Bilirubin Urine Bacteria Hyaline Casts Urine Mucus Vancomycin Trough Random Vancomycin U Benzodiazepines Scrn U Marijuana (THC) Screen Crossmatch 10/10/22 10/10/22 10/10/22 06:04 07:10 08:49 RBC Hgb Hct MCV MCH MCHC RDW Plt Count Lymphocytes # Metamyelocytes # (Man) Myelocytes # (Manual) Macrocytosis PT 21.2 H INR 2.2 H APTT D-Dimer ABG pH 7.33 L ABG pCO2 32 L ABG pO2 ABG HCO3 17 L ABG Total CO2 18 L ABG O2 Saturation 97.4 H VBG pH VBG pCO2 VBG HCO3 Sodium Potassium Chloride Carbon Dioxide BUN Creatinine Glucose POC Glucose (mg/dL) Plasma Lactic Acid Paulino Calcium Total Bilirubin Conjugated Bilirubin Unconjugated Bilirubin Delta Bilirubin AST ALT Alkaline Phosphatase Ammonia C-Reactive Protein Total Protein Albumin Procalcitonin TSH Ur Specific [place] Urine Protein Urine Blood Urine Bilirubin Urine Bacteria Hyaline Casts Urine Mucus Vancomycin Trough 74.3 H* Random Vancomycin U Benzodiazepines Scrn U Marijuana (THC) Screen Crossmatch 10/10/22 10/10/22 10/10/22 11:54 17:53 20:30 RBC Hgb Hct MCV MCH MCHC RDW Plt Count Lymphocytes # Metamyelocytes # (Man) Myelocytes # (Manual) Macrocytosis PT INR APTT D-Dimer ABG pH ABG pCO2 ABG pO2 ABG HCO3 ABG Total CO2 ABG O2 Saturation VBG pH VBG pCO2 VBG HCO3 Sodium Potassium Chloride Carbon Dioxide BUN Creatinine Glucose POC Glucose (mg/dL) 225 H 224 H 212 H Plasma Lactic Acid Paulino Calcium Total Bilirubin Conjugated Bilirubin Unconjugated Bilirubin Delta Bilirubin AST ALT Alkaline Phosphatase Ammonia C-Reactive Protein Total Protein Albumin Procalcitonin TSH Ur Specific [place] Urine Protein Urine Blood Urine Bilirubin Urine Bacteria Hyaline Casts Urine Mucus Vancomycin Trough Random Vancomycin U Benzodiazepines Scrn U Marijuana (THC) Screen Crossmatch 10/10/22 10/11/22 10/11/22 23:12 05:14 05:24 RBC Hgb Hct MCV MCH MCHC RDW Plt Count Lymphocytes # Metamyelocytes # (Man) Myelocytes # (Manual) Macrocytosis PT INR APTT D-Dimer ABG pH 7.33 L ABG pCO2 ABG pO2 59 L* ABG HCO3 ABG Total CO2 ABG O2 Saturation 88.2 L VBG pH VBG pCO2 VBG HCO3 Sodium Potassium Chloride Carbon Dioxide BUN Creatinine Glucose POC Glucose (mg/dL) 190 H 168 H Plasma Lactic Acid Paulino Calcium Total Bilirubin Conjugated Bilirubin Unconjugated Bilirubin Delta Bilirubin AST ALT Alkaline Phosphatase Ammonia C-Reactive Protein Total Protein Albumin Procalcitonin TSH Ur Specific [place] Urine Protein Urine Blood Urine Bilirubin Urine Bacteria Hyaline Casts Urine Mucus Vancomycin Trough Random Vancomycin U Benzodiazepines Scrn U Marijuana (THC) Screen Crossmatch 10/11/22 10/11/22 10/11/22 06:15 06:15 06:15 RBC 1.68 L Hgb 6.8 L* D Hct 22.1 L MCV 131.4 H MCH 40.0 H MCHC 30.6 L RDW 17.8 H Plt Count 28 L Lymphocytes # 0.7 L Metamyelocytes # (Man) Myelocytes # (Manual) Macrocytosis Marked A PT INR APTT D-Dimer ABG pH ABG pCO2 ABG pO2 ABG HCO3 ABG Total CO2 ABG O2 Saturation VBG pH VBG pCO2 VBG HCO3 Sodium Potassium 2.8 L Chloride 114 H Carbon Dioxide 20 L BUN 29 H Creatinine 2.01 H Glucose 147 H POC Glucose (mg/dL) Plasma Lactic Acid Paulino Calcium 7.0 L Total Bilirubin 6.0 H Conjugated Bilirubin Unconjugated Bilirubin Delta Bilirubin AST 371 H ALT 81 H Alkaline Phosphatase Ammonia C-Reactive Protein 20.1 H Total Protein 5.2 L Albumin 2.1 L Procalcitonin 7.45 H TSH Ur Specific [place] Urine Protein Urine Blood Urine Bilirubin Urine Bacteria Hyaline Casts Urine Mucus Vancomycin Trough Random Vancomycin 67.5 H* U Benzodiazepines Scrn U Marijuana (THC) Screen Crossmatch 10/11/22 10/11/22 10/11/22 08:09 08:09 10:49 RBC 1.56 L Hgb 6.8 L* Hct 20.6 L MCV 132.3 H MCH 43.3 H MCHC RDW 17.5 H Plt Count 24 L Lymphocytes # 0.6 L Metamyelocytes # (Man) Myelocytes # (Manual) Macrocytosis Marked A PT INR APTT D-Dimer ABG pH ABG pCO2 ABG pO2 ABG HCO3 ABG Total CO2 ABG O2 Saturation VBG pH VBG pCO2 VBG HCO3 Sodium Potassium Chloride Carbon Dioxide BUN Creatinine Glucose POC Glucose (mg/dL) Plasma Lactic Acid Paulino Calcium Total Bilirubin Conjugated Bilirubin Unconjugated Bilirubin Delta Bilirubin AST ALT Alkaline Phosphatase Ammonia 89 H C-Reactive Protein Total Protein Albumin Procalcitonin TSH Ur Specific [place] Urine Protein Urine Blood Urine Bilirubin Urine Bacteria Hyaline Casts Urine Mucus Vancomycin Trough Random Vancomycin U Benzodiazepines Scrn U Marijuana (THC) Screen Crossmatch See Detail 10/11/22 10/11/22 10/11/22 11:53 17:48 23:42 RBC Hgb Hct MCV MCH MCHC RDW Plt Count Lymphocytes # Metamyelocytes # (Man) Myelocytes # (Manual) Macrocytosis PT INR APTT D-Dimer ABG pH ABG pCO2 ABG pO2 ABG HCO3 ABG Total CO2 ABG O2 Saturation VBG pH VBG pCO2 VBG HCO3 Sodium Potassium Chloride Carbon Dioxide BUN Creatinine Glucose POC Glucose (mg/dL) 143 H 129 H 114 H Plasma Lactic Acid Paulino Calcium Total Bilirubin Conjugated Bilirubin Unconjugated Bilirubin Delta Bilirubin AST ALT Alkaline Phosphatase Ammonia C-Reactive Protein Total Protein Albumin Procalcitonin TSH Ur Specific [place] Urine Protein Urine Blood Urine Bilirubin Urine Bacteria Hyaline Casts Urine Mucus Vancomycin Trough Random Vancomycin U Benzodiazepines Scrn U Marijuana (THC) Screen Crossmatch 10/12/22 10/12/22 10/12/22 04:20 04:20 04:20 RBC 2.10 L Hgb 8.4 L D Hct 25.0 L MCV 119.3 H D MCH 40.2 H MCHC RDW 24.0 H Plt Count 19 L* Lymphocytes # Metamyelocytes # (Man) Myelocytes # (Manual) Macrocytosis Marked A PT INR APTT D-Dimer ABG pH ABG pCO2 ABG pO2 ABG HCO3 ABG Total CO2 ABG O2 Saturation VBG pH VBG pCO2 VBG HCO3 Sodium Potassium Chloride 114 H Carbon Dioxide BUN 38 H Creatinine 2.19 H 2.17 H Glucose POC Glucose (mg/dL) Plasma Lactic Acid Paulino Calcium 7.2 L Total Bilirubin Conjugated Bilirubin Unconjugated Bilirubin Delta Bilirubin AST ALT Alkaline Phosphatase Ammonia C-Reactive Protein Total Protein Albumin Procalcitonin TSH Ur Specific [place] Urine Protein Urine Blood Urine Bilirubin Urine Bacteria Hyaline Casts Urine Mucus Vancomycin Trough Random Vancomycin 51.5 H* U Benzodiazepines Scrn U Marijuana (THC) Screen Crossmatch 10/12/22 10/12/22 10/13/22 04:20 05:40 05:05 RBC Hgb Hct MCV MCH MCHC RDW Plt Count Lymphocytes # Metamyelocytes # (Man) Myelocytes # (Manual) Macrocytosis PT INR APTT D-Dimer ABG pH ABG pCO2 34 L ABG pO2 53 L* ABG HCO3 ABG Total CO2 ABG O2 Saturation 89.6 L VBG pH VBG pCO2 VBG HCO3 Sodium 146 H Potassium 3.2 L Chloride 111 H Carbon Dioxide BUN 46 H Creatinine 2.44 H Glucose 58 L POC Glucose (mg/dL) Plasma Lactic Acid Paulino Calcium 7.5 L Total Bilirubin 9.2 H Conjugated Bilirubin Unconjugated Bilirubin Delta Bilirubin AST 242 H ALT 61 H Alkaline Phosphatase Ammonia 46 H C-Reactive Protein Total Protein 5.5 L Albumin 2.2 L Procalcitonin TSH Ur Specific [place] Urine Protein Urine Blood Urine Bilirubin Urine Bacteria Hyaline Casts Urine Mucus Vancomycin Trough Random Vancomycin 47.3 H* U Benzodiazepines Scrn U Marijuana (THC) Screen Crossmatch 10/13/22 10/13/22 10/13/22 05:05 05:53 07:46 RBC 2.13 L Hgb 8.6 L Hct 25.2 L MCV 118.2 H MCH 40.5 H MCHC RDW 23.4 H Plt Count 15 L* Lymphocytes # Metamyelocytes # (Man) 0.06 H Myelocytes # (Manual) 0.18 H Macrocytosis Marked A PT INR APTT D-Dimer ABG pH 7.50 H ABG pCO2 32 L ABG pO2 145 H ABG HCO3 ABG Total CO2 26 H ABG O2 Saturation 100.0 H VBG pH VBG pCO2 VBG HCO3 Sodium Potassium Chloride Carbon Dioxide BUN Creatinine Glucose POC Glucose (mg/dL) 63 L Plasma Lactic Acid Paulino Calcium Total Bilirubin Conjugated Bilirubin Unconjugated Bilirubin Delta Bilirubin AST ALT Alkaline Phosphatase Ammonia C-Reactive Protein Total Protein Albumin Procalcitonin TSH Ur Specific [place] Urine Protein Urine Blood Urine Bilirubin Urine Bacteria Hyaline Casts Urine Mucus Vancomycin Trough Random Vancomycin U Benzodiazepines Scrn U Marijuana (THC) Screen Crossmatch 10/14/22 10/14/22 10/14/22 00:33 00:45 05:45 RBC 1.89 L Hgb 7.7 L Hct 22.3 L MCV 118.0 H MCH 40.6 H MCHC RDW 23.2 H Plt Count 10 L* Lymphocytes # Metamyelocytes # (Man) Myelocytes # (Manual) Macrocytosis Marked A PT 15.0 H INR 1.5 H APTT D-Dimer ABG pH 7.67 H* ABG pCO2 19 L* ABG pO2 135 H ABG HCO3 ABG Total CO2 ABG O2 Saturation 100.0 H VBG pH VBG pCO2 VBG HCO3 Sodium Potassium Chloride Carbon Dioxide BUN Creatinine Glucose POC Glucose (mg/dL) Plasma Lactic Acid Paulino Calcium Total Bilirubin Conjugated Bilirubin Unconjugated Bilirubin Delta Bilirubin AST ALT Alkaline Phosphatase Ammonia C-Reactive Protein Total Protein Albumin Procalcitonin TSH Ur Specific [place] Urine Protein Urine Blood Urine Bilirubin Urine Bacteria Hyaline Casts Urine Mucus Vancomycin Trough Random Vancomycin U Benzodiazepines Scrn U Marijuana (THC) Screen Crossmatch 10/14/22 10/14/22 10/14/22 06:00 06:00 06:01 RBC 1.80 L Hgb 7.2 L Hct 21.2 L MCV 117.9 H MCH 40.3 H MCHC RDW 23.4 H Plt Count 11 L* Lymphocytes # Metamyelocytes # (Man) Myelocytes # (Manual) Macrocytosis Marked A PT INR APTT D-Dimer ABG pH ABG pCO2 ABG pO2 ABG HCO3 ABG Total CO2 ABG O2 Saturation VBG pH VBG pCO2 VBG HCO3 Sodium 149 H Potassium 3.2 L Chloride 114 H Carbon Dioxide BUN 55 H Creatinine 2.40 H Glucose 108 H POC Glucose (mg/dL) 114 H Plasma Lactic Acid Paulino Calcium 7.5 L Total Bilirubin 9.6 H Conjugated Bilirubin Unconjugated Bilirubin Delta Bilirubin AST 184 H ALT 43 H Alkaline Phosphatase Ammonia C-Reactive Protein Total Protein 5.2 L Albumin 2.2 L Procalcitonin TSH Ur Specific [place] Urine Protein Urine Blood Urine Bilirubin Urine Bacteria Hyaline Casts Urine Mucus Vancomycin Trough Random Vancomycin U Benzodiazepines Scrn U Marijuana (THC) Screen Crossmatch 10/14/22 10/14/22 08:08 12:34 RBC Hgb Hct MCV MCH MCHC RDW Plt Count Lymphocytes # Metamyelocytes # (Man) Myelocytes # (Manual) Macrocytosis PT INR APTT D-Dimer ABG pH ABG pCO2 ABG pO2 144 H ABG HCO3 ABG Total CO2 26 H ABG O2 Saturation 99.7 H VBG pH VBG pCO2 VBG HCO3 Sodium Potassium Chloride Carbon Dioxide BUN Creatinine Glucose POC Glucose (mg/dL) 147 H Plasma Lactic Acid Paulino Calcium Total Bilirubin Conjugated Bilirubin Unconjugated Bilirubin Delta Bilirubin AST ALT Alkaline Phosphatase Ammonia C-Reactive Protein Total Protein Albumin Procalcitonin TSH Ur Specific [place] Urine Protein Urine Blood Urine Bilirubin Urine Bacteria Hyaline Casts Urine Mucus Vancomycin Trough Random Vancomycin U Benzodiazepines Scrn U Marijuana (THC) Screen Crossmatch Assessment and Plan Assessment: * Altered mental status, likely due to hepatic encephalopathy, probable superimposed toxic metabolic encephalopathy. * Acute renal failure * Hyponatremia * Anemia, * Thrombocytopenia, severe * Hypothyroidism * Macrocytosis, likely multifactorial due to below * Chronic alcoholism * History of B12 deficiency * History of folate deficiency Plan: * Patient's ammonia level has come back to normal. * Repeat an ammonia level in the morning, to make sure it is stable. * EEG in the morning, to evaluate for hepatic encephalopathy, rule out nonconvulsive status. * Medical management as per IM and other specialties. * Dr. Davide Moura Will resume neurology service in the morning. Discussed with patient's nurse in detail in detail. Thank you for the consult.
[2022-10-14 23:39] LABS: Glucose,Whole Blood 127 mg/dL (70-110)
[2022-10-15] MEDS: ALBUTEROL NEBULIZED 2.5 MG/3 ML INHALATION SCH ×5 (00:15→15:38)
[2022-10-15] MEDS: IPRATROPIUM 0.5 MG/2.5 ML NEBU INHALATION SCH ×5 (00:16→15:38)
--- NOTE | 2022-10-15 03:00 | PN ---
PROGRESS NOTE DATE OF SERVICE: 10/14/2022 SUBJECTIVE: This is a 42-year-old woman, who was admitted with bilateral pneumonia, sepsis, and alcohol intoxication withdrawal. She continues to be vent dependent. The patient on mechanical ventilation. The family is trying for legal guardianship. CT scan of the brain showed no acute bleed or mass effect. PAST MEDICAL HISTORY: Reviewed. REVIEW OF SYSTEMS: Could not be taken. The patient is on mechanical ventilation. CURRENT MEDICATIONS: Reviewed include Linezolid. Dose and rest of medication noted. PHYSICAL EXAMINATION: VITAL SIGNS: Pulse is 99, blood pressure 120/40, respirations 18. CHEST: Bilateral scattered rhonchi and crackles. ABDOMEN: Soft, ascites, and diffuse distention. CARDIOVASCULAR: S1, S2 muffled. NERVOUS SYSTEM: Sedated. LABORATORY DATA: Reviewed. ASSESSMENT: 1. Bilateral pneumonia with possible aspiration sepsis, present on admission. 2. Acute hypoxic respiratory failure, on mechanical ventilation. 3. Anemia, thrombocytopenia secondary to alcoholic liver disease and possible cirrhosis of liver. 4. Possible vaginal bleeding. 5. Alcoholic hepatitis with chronic liver disease and ascites, cirrhosis of liver. 6. Alcohol withdrawal syndrome and delirium tremens. 7. Sinus tachycardia. 8. Multiple medical issues. 9. Acute renal failure. 10.No code. No CPR. No vent. RECOMMENDATIONS: Recommend to continue current medications. Continue with mechanical ventilation. Continue with antibiotics. Continue follow up with multiple consultants. The patient has some vaginal bleeding at this time. The patient has coagulopathy with bleeding in the combination of coagulopathy and thrombocytopenia. Recommend intravenous vitamin K 10 IV daily and closely follow with multiple consultants. Once again, the prognosis is guarded. We will await legal guardianship and continue to monitor. MMODL / IJN: [id number] /
[2022-10-15] MEDS: INSULIN ASPART (NovoLOG) 100 UNIT/ML VIAL SQ SCH ×4 (03:13→18:55)
[2022-10-15 05:14] LABS: Glucose,Whole Blood 123 mg/dL (70-110)
[2022-10-15 05:25] LABS: Anisocytosis Moderate; MCH 39.4 pg (25.0-35.0); MCHC 33.1 g/dL (31.0-37.0); MCV 119.1 fL (80.0-100.0); Macrocytosis Marked; RBC 1.67 m/uL (3.80-5.40); RDW 22.9 % (11.5-15.5); WBC 8.1 k/uL (3.8-10.6)
[2022-10-15 05:36] LABS: Albumin 2.2 g/dL (3.5-5.0); Calcium 7.4 mg/dL (8.4-10.2); Magnesium 1.5 mg/dL (1.6-2.3); Phosphorus 5.5 mg/dL (2.5-4.5); Total Bilirubin 10.4 mg/dL (0.2-1.3); Total Protein 5.2 g/dL (6.3-8.2)
[2022-10-15 05:40] LABS: INR 1.6 (<1.2); Prothrombin Time 15.6 sec (9.0-12.0)
[2022-10-15 05:44] LABS: HCT 19.9 % (34.0-46.0); HGB 6.6 gm/dL (11.4-16.0); Platelet Count 14 k/uL (150-450)
[2022-10-15 05:53] LABS: ABG Base Excess 0.5 mmol/L; ABG HCO3 25 mmol/L (21-25); ABG Oxygen Saturation 99.2 % (94-97); ABG PCO2 37 mmHg (35-45); ABG PH 7.43 (7.35-7.45); ABG PO2 112 mmHg (83-108); ABG TCO2 26 mmol/L (19-24); Allen Test Performed? Yes
--- NOTE | 2022-10-15 08:24 | XR ---
EXAMINATION TYPE: XR chest 1V portable DATE OF EXAM: 10/15/2022 COMPARISON: 10/14/2022 INDICATION: Difficulty breathing intubated TECHNIQUE: Single frontal view of the chest is obtained. FINDINGS: The heart size is normal. The pulmonary vasculature is normal. Increased lung markings are in the left upper lung field and right perihilar region. This is improvin g from comparison Endotracheal tube is 2.1 cm above the norberto. Nasogastric tube transverses the thorax. IMPRESSION: 1. Improving left upper and right perihilar infiltrates. 2. Lines and catheters discussed above
[2022-10-15] MEDS: LINEZOLID 600 MG in DEXTROSE/WATER 1 300ML.BAG IVPB SCH ×2 (09:02→20:19)
[2022-10-15] MEDS: MEROPENEM 1 GM in SODIUM CHLORIDE 0.9% 100 ML IVPB SCH ×2 (09:02→15:14)
[2022-10-15] MEDS: CHLORHEXIDINE GLUCONATE 15 ML CUP MUCOUS MEM SCH ×2 (09:02→20:17)
[2022-10-15] MEDS: RIFAXIMIN 550 MG TABLET PO SCH ×2 (09:03→20:17)
[2022-10-15] MEDS: THIAMINE 100 MG TAB PO SCH (09:03)
[2022-10-15] MEDS: PANTOPRAZOLE 40 MG/10 ML VIAL IV SCH ×2 (09:03→20:17)
[2022-10-15] MEDS: DEXTROSE 5% IN WATER 1,000 ML IV SCH (09:04)
--- NOTE | 2022-10-15 10:44 | P.PN ---
Subjective Progress Note Date: 10/15/22 Principal diagnosis: Respiratory failure. Reevaluated today on 10/11/2022, patient remains in the ICU, intubated and mechanically ventilated. She is now on assist control rate of 24th of volume 400 FiO2 50% PEEP of 8 and a increased the PEEP to 10. ABG showed a pO2 of 59 pCO2 40 pH of 7.33. Patient is receiving a unit of packed RBC this morning for hemoglobin of 6.8. Her renal functioning seems to be deteriorating and worsening creatinine is up to 2.01. Liver enzymes remain elevated. Ammonia level is pending. Nephrology was consulted for her acute kidney injury, diabetes concern is the patient developing acute hepatorenal syndrome. Urine output remains marginal, Lasix was ordered to be given 1. Her IV fluid is Down to KVO, remains on sodium bicarb drip. Patient remains on norepinephrine at 0.12 she is also on Versed 3 mg/h, and propofol at 75 mcg/kg/m. 0.9 normal saline at 75 mL/h this will be cut down to KVO, and Lasix will be given. Chest x-ray is showing worsening in her consolidation in the left lower lobe, and I suspect there may be a component of groundglass appearance suggestive of mild interstitial edema and fluid overload. WBC count is 3.9 hemoglobin 6.8. Electrolytes are abnormal with sodium 145 potassium 2.8 bicarb is 20 BUN is 49 and creatinine 2.0 1 repeat ammonia level today is 89, remains quite elevated, patient is on lactulose and she is also on rifaximin. Reevaluated today on 10/12/2022, patient remains in the ICU intubated and mechanically ventilated. She is on assist control rate of 24-400 FiO2 50% and PEEP of 10 ABG showed a pO2 of 53 pCO2 34 pH of 7.44, hence FiO2 was increased to 50%*of 40%. Chest x-ray is showing improvement in her bilateraldisease especially on the left side. Remains on propofol at 25 mg/kg/m norepinephrine at 0.04 mcg/kg/m vasopressin 0.03 units per minute and bicarb drip which I cut it down to 25 mL per hour. 50 mL per hour. Patient remains on lactulose and ammonia level is down to 46 today. She will be receiving a dose of Lasix 80 mg IV push. I will discontinue propofol since the patient may not require much sedation. Patient is definitely not ready for any form of weaning or extubation at this point. Her platelets were noted to be quite low today, and I'm recommending 2 units of platelets to be given. His sputum came back positive for MRSA, and she remains covered with vancomycin. WBC count today is 5.4 hemoglobin is 8.4. Her platelets are 19,000. Electrolytes are normal except for sodium 145 BUN of 38 creatinine 2.17. Urine output is marginal, and I have recommended another dose of Lasix 80 mg to be given today IV push. Patient was reevaluated today on 10/13/2022, remains in the ICU, intubated and mechanically ventilated, patient is off sedation for the last 24 hours, no purposeful responses, no responses to any deep painful stimuli, she is on assist control rate of 24 volume 400 FiO2 40% PEEP is cut down from 10-8. ABG showed a pO2 of 145 pCO2 32 pH of 7.50. Platelets are low again, 15,017 the patient 2 units of platelets to be given today. We have ordered the bicarb to be discontinued since the bicarb level is normal. No functioning remains borderline about the same compared to yesterday. Patient is again off sedation for the last 24 hours. Chest x-ray continues to show bilateral airspace disease consistent with pneumonia, WBC count is 6.0 hemoglobin is 8.6, basic metabolic profile showed sodium of 146 potassium 3.2 chloride 111 bicarb 25 BUN 46 creatinine 2.44 liver enzymes remain a bit elevated with a total bilirubin of 9.2. Reevaluated today on 10/25/19 patient is sitting in the ICU, intubated and mechanically ventilated. Her ventilator settings were adjusted today, she is now on assist control rate of 18, volume 400 FiO2 40% and PEEP of 8 and her ABG showed a pO2 of 144 pCO2 36 pH of 7.44 hence the patient had FiO2 cut down to 35%. Chest x-ray continues to show diffuse bilateral infiltrates, relatively unchanged. Labs were reviewed she has a sodium 149 potassium 3.2 chloride 114 bicarb is 24 BUN is 55 creatinine 2.40. WBC count is 5.6 hemoglobin 7.2 hematocrit 21.2 platelets are down to 11,000, and the patient is receiving 2 units of platelets today. Patient had an episode of vaginal bleeding yesterday, it was basically a large blood clot coming out of her vaginal area. Patient had a test that came back negative. Patient is getting worse, she developing worsening abdominal distention, worsening bipedal edema, anasarca, ascites, he is also developing worsening neurological status and I'm recommending a CT of the brain to be done today, and a neurological consultation. Antibiotics curran, the patient was seen by infectious disease, and she is now on Rocephin and she is on linezolid/Zyvox. Her IV fluid has been changed to D5W cerebellar are mostly because of her hypernatremia that was noted on the labs today. Patient remains on lactulose, ammonia level is pending today. She is also on rifaximin.. Patient remains off sedation completely. Progress note dated 10/15/2022. The patient is seen today in room 254. She was admitted back on October 08 with mental status changes, aspiration pneumonia, alcoholic liver disease, alcohol withdrawal syndrome, and sepsis. The patient was intubated on the same today, October 08. She remains on the mechanical ventilator, at volume assist control, rate 18, tidal volume 400, FiO2 35%, and PEEP of 8. Blood gases show pO2 of 112, pCO2 37, and a pH 7.43. The FiO2 was turned down to 30%. Currently, she remains on Zyvox and meropenem. The patient's getting norepinephrine at 7 mcg/m, D5W at 50 mL an hour, and propofol has been of convalescent October 12. She's getting vital high protein at 5 mL an hour. Dietary yet to see her. White count 8.1, hemoglobin 6.6, hematocrit 19.9, and platelet count 14,000. PT 15.6 INR 1.6. Sodium 147, potassium 4, chlorides 112, CO2 26, BUN 62, and creatinine 2.56. AST is 165 ALT 36. Albumin is 2.2. Blood cultures are positive for Eubacterium, Escherichia coli, MRSA, and alpha-hemolytic streptococci. There were also positive for Clostridium perfringens. Chest x- ray shows an improving pattern, particularly to the left upper and right perihilar infiltrates. Objective - Vital Signs Vital signs: Vital Signs Temp 98.7 F 10/15/22 08:00 Pulse 125 H 10/15/22 09:15 Resp 21 10/15/22 09:15 BP 110/49 10/15/22 07:00 Pulse Ox 92 L 10/15/22 09:15 FiO2 30 10/15/22 08:45 Intake & Output 10/14/22 10/15/22 10/15/22 18:59 06:59 18:59 Intake Total 2016 1451.287 251.633 Output Total 220 95 15 Balance 1797 1356.287 236.633 Weight 78.8 kg Intake: IV 1349 1288 147.3 Dextrose 5% in Water 1, 300 100 50 000 ml @ 50 mls/hr IV . Q20H [facility] Rx#:[id number] Lactated Ringers 1,000 ml 180 @ 60 mls/hr IV .[id number] [facility] Rx#:[id number] Linezolid 600 mg In 300 1000 50 Dextrose/Water 1 300ml. bag @ 150 mls/hr IVPB Q12HR [facility] Rx#:[id number] Meropenem 1 gm In Sodium 100 100 33.3 Chloride 0.9% 100 ml @ 33 .3 mls/hr IVPB Q8HR [facility] Rx#:[id number] Phytonadione 10 mg In 50 Sodium Chloride 0.9% 50 ml @ 100 mls/hr IVPB DAILY [facility] Rx#:[id number] Potassium Chloride 20 meq 300 In Water For Injection 1 100ml.bag @ 50 mls/hr IVPB Q2H [facility] Rx#: [id number] Sodium Chloride 0.9% 1, 80 55 5 000 ml @ 75 mls/hr IV . [id number] [facility] Rx#:[id number] pressure bag 39 33 9 Intake, IV Titration 123.287 99.333 Amount Norepinephrine 4 mg In 123.287 99.333 Sodium Chloride 0.9% 250 ml @ 0.03 MCG/KG/MIN 8. 675 mls/hr IV .Q24H [facility] Rx#:[id number] Oral 40 5 Blood Product 668 Platelet Pheresis Pas 329 Psoralen Unit [id number] Platelet Pheresis Pas 339 Psoralen Unit [id number] Output: Urine 220 95 15 Other: Voiding Method Indwelling Catheter Indwelling Catheter # Bowel Movements 1 ABP, PAP, CO, CI - Last Documented Arterial Blood Pressure 111/46 - Exam No acute distress, sedated, with an orally placed endotracheal tube and NG tube. HEENT examination is grossly unremarkable. Sclerae icterus. Neck supple. Full range of motion. No adenopathy thyromegaly or neck vein distention. Cardiovascular examination reveals regular rhythm rate. S1-S2 normal. No S3 or S4. No discernible murmur noted. Heart sounds are distant. Heart rate 125 bpm. Lungs reveal scattered rhonchi throughout. No wheezes or crackles. Breath sounds equal bilaterally. Saturations are 92%. Abdomen soft bowel sounds are heard. No masses or tenderness. Extremities are intact. No cyanosis clubbing or edema. Skin reveals jaundice. Neurologic examination cannot be adequately assessed at this time. - Labs CBC & Chem 7: 10/15/22 04:45 10/15/22 04:45 Labs: Abnormal Lab Results - Last 24 Hours (Table) 10/14/22 10/14/22 10/14/22 Range/Units 12:34 17:20 23:37 RBC (3.80-5.40) m/uL Hgb (11.4-16.0) gm/dL Hct (34.0-46.0) % MCV (80.0-100.0) fL MCH (25.0-35.0) pg RDW (11.5-15.5) % Plt Count (150-450) k/uL Macrocytosis PT (9.0-12.0) sec INR (<1.2) ABG pO2 (83-108) mmHg ABG Total CO2 (19-24) mmol/L ABG O2 Saturation (94-97) % Sodium (137-145) mmol/L Chloride (98-107) mmol/L BUN (7-17) mg/dL Creatinine (0.52-1.04) mg/dL Glucose (74-99) mg/dL POC Glucose (mg/dL) 147 H 118 H 127 H (70-110) mg/dL Calcium (8.4-10.2) mg/dL Phosphorus (2.5-4.5) mg/dL Magnesium (1.6-2.3) mg/dL Total Bilirubin (0.2-1.3) mg/dL AST (14-36) U/L ALT (4-34) U/L Total Protein (6.3-8.2) g/dL Albumin (3.5-5.0) g/dL Crossmatch 10/15/22 10/15/2223 Range/Units 04:45 04:45 04:45 RBC 1.67 L (3.80-5.40) m/uL Hgb 6.6 L* (11.4-16.0) gm/dL Hct 19.9 L* (34.0-46.0) % MCV 119.1 H (80.0-100.0) fL MCH 39.4 H (25.0-35.0) pg RDW 22.9 H (11.5-15.5) % Plt Count 14 L* (150-450) k/uL Macrocytosis Marked A PT 15.6 H (9.0-12.0) sec INR 1.6 H (<1.2) ABG pO2 (83-108) mmHg ABG Total CO2 (19-24) mmol/L ABG O2 Saturation (94-97) % Sodium 147 H (137-145) mmol/L Chloride 112 H (98-107) mmol/L BUN 62 H (7-17) mg/dL Creatinine 2.56 H (0.52-1.04) mg/dL Glucose 107 H (74-99) mg/dL POC Glucose (mg/dL) (70-110) mg/dL Calcium 7.4 L (8.4-10.2) mg/dL Phosphorus 5.5 H (2.5-4.5) mg/dL Magnesium 1.5 L (1.6-2.3) mg/dL Total Bilirubin 10.4 H (0.2-1.3) mg/dL AST 165 H (14-36) U/L ALT 36 H (4-34) U/L Total Protein 5.2 L (6.3-8.2) g/dL Albumin 2.2 L (3.5-5.0) g/dL Crossmatch 10/15/22 10/15/22 10/15/22 Range/Units 05:12 05:52 06:22 RBC (3.80-5.40) m/uL Hgb (11.4-16.0) gm/dL Hct (34.0-46.0) % MCV (80.0-100.0) fL MCH (25.0-35.0) pg RDW (11.5-15.5) % Plt Count (150-450) k/uL Macrocytosis PT (9.0-12.0) sec INR (<1.2) ABG pO2 112 H (83-108) mmHg ABG Total CO2 26 H (19-24) mmol/L ABG O2 Saturation 99.2 H (94-97) % Sodium (137-145) mmol/L Chloride (98-107) mmol/L BUN (7-17) mg/dL Creatinine (0.52-1.04) mg/dL Glucose (74-99) mg/dL POC Glucose (mg/dL) 123 H (70-110) mg/dL Calcium (8.4-10.2) mg/dL Phosphorus (2.5-4.5) mg/dL Magnesium (1.6-2.3) mg/dL Total Bilirubin (0.2-1.3) mg/dL AST (14-36) U/L ALT (4-34) U/L Total Protein (6.3-8.2) g/dL Albumin (3.5-5.0) g/dL Crossmatch See Detail 10/15/22 Range/Units 08:11 RBC (3.80-5.40) m/uL Hgb (11.4-16.0) gm/dL Hct (34.0-46.0) % MCV (80.0-100.0) fL MCH (25.0-35.0) pg RDW (11.5-15.5) % Plt Count (150-450) k/uL Macrocytosis PT (9.0-12.0) sec INR (<1.2) ABG pO2 (83-108) mmHg ABG Total CO2 (19-24) mmol/L ABG O2 Saturation (94-97) % Sodium (137-145) mmol/L Chloride (98-107) mmol/L BUN (7-17) mg/dL Creatinine (0.52-1.04) mg/dL Glucose (74-99) mg/dL POC Glucose (mg/dL) (70-110) mg/dL Calcium (8.4-10.2) mg/dL Phosphorus (2.5-4.5) mg/dL Magnesium (1.6-2.3) mg/dL Total Bilirubin (0.2-1.3) mg/dL AST (14-36) U/L ALT (4-34) U/L Total Protein (6.3-8.2) g/dL Albumin (3.5-5.0) g/dL Crossmatch See Detail Microbiology - Last 24 Hours (Table) 10/11/22 06:08 Blood Culture - Preliminary Blood No Growth after 96 hours 10/12/22 15:46 Blood Culture - Preliminary Blood No Growth after 48 hours 10/09/22 20:35 Blood Culture Gram Stain - Final Blood Blood Culture - Final Eubacterium lentum 10/09/22 01:00 Blood Culture Gram Stain - Final Blood Blood Culture - Final Escherichia coli Methicillin resist S. aureus Alpha Hemolytic Streptococcus Clostridium perfringens Assessment and Plan Assessment: Acute hypoxemic respiratory failure secondary to sepsis/septic shock. Methicillin-resistant staph aureus pneumonia. Acute bacteremia secondary to Escherichia coli, Staphylococcus aureus, and streptococcus, alphahemolytic. Acute metabolic acidosis secondary to lactic acidemia. Acute alcohol withdrawal. History of polysubstance abuse. Hepatic encephalopathy. Alcoholic liver disease with thrombocytopenia. Chronic macrocytic anemia. Liver cirrhosis. Acute kidney injury secondary to ATN. Multi-organ system failure. Plan: Plan dated 10/15/2022. The patient will continue on ventilatory support. She is a DO NOT RESUSCITATE. Apparently her significant other is going to court, on Saturday, to get guardianship, and possibly make this patient a comfort care patient. This seemed to be appropriate. We will continue to follow make recommendations along the way. Labs, x-rays, medications are reviewed. The patient remains on meropenem and Zyvox. Prognosis is very poor. Time with Patient: Greater than 30
[2022-10-15 11:23] LABS: Glucose,Whole Blood 140 mg/dL (70-110)
--- NOTE | 2022-10-15 11:25 | P.PN ---
Subjective This is a 42-year-old female's seen consultation with acute kidney injury secondary to septic syndrome with multiple bacteria from her blood cultures including E. coli staph and strep. Source is possibly GI as well as pneumonia. She remains intubated currently on 30% FiO2, has been off of all inotropes. Patient has history of severe EtOH abuse. She is currently jaundiced with bilirubin of 10.4. Urine output at about 0-5 mL per hour. Hemoglobin was 6.6 this morning and patient is receiving packed RBCs transfusion. Objective - Vital Signs Vital signs: Vital Signs Temp 98.7 F 10/15/22 10:51 Pulse 124 H 10/15/22 10:51 Resp 22 10/15/22 10:51 BP 109/45 10/15/22 10:51 Pulse Ox 93 L 10/15/22 10:51 FiO2 30 10/15/22 08:45 Intake & Output 10/14/22 10/15/22 10/15/22 18:59 06:59 18:59 Intake Total 2016 1451.287 251.633 Output Total 220 95 15 Balance 1797 1356.287 236.633 Weight 78.8 kg Intake: IV 1349 1288 147.3 Dextrose 5% in Water 1, 300 100 50 000 ml @ 50 mls/hr IV . Q20H [facility] Rx#:[id number] Lactated Ringers 1,000 ml 180 @ 60 mls/hr IV .[id number] [facility] Rx#:[id number] Linezolid 600 mg In 300 1000 50 Dextrose/Water 1 300ml. bag @ 150 mls/hr IVPB Q12HR [facility] Rx#:[id number] Meropenem 1 gm In Sodium 100 100 33.3 Chloride 0.9% 100 ml @ 33 .3 mls/hr IVPB Q8HR [facility] Rx#:[id number] Phytonadione 10 mg In 50 Sodium Chloride 0.9% 50 ml @ 100 mls/hr IVPB DAILY [facility] Rx#:[id number] Potassium Chloride 20 meq 300 In Water For Injection 1 100ml.bag @ 50 mls/hr IVPB Q2H [facility] Rx#: [id number] Sodium Chloride 0.9% 1, 80 55 5 000 ml @ 75 mls/hr IV . [id number] [facility] Rx#:[id number] pressure bag 39 33 9 Intake, IV Titration 123.287 99.333 Amount Norepinephrine 4 mg In 123.287 99.333 Sodium Chloride 0.9% 250 ml @ 0.03 MCG/KG/MIN 8. 675 mls/hr IV .Q24H [facility] Rx#:[id number] Oral 40 5 Blood Product 668 0 Platelet Pheresis Pas 329 Psoralen Unit [id number] Platelet Pheresis Pas 339 Psoralen Unit [id number] Platelet Pheresis Pas 0 Psoralen Unit [id number] Output: Urine 220 95 15 Other: Voiding Method Indwelling Catheter Indwelling Catheter # Bowel Movements 1 ABP, PAP, CO, CI - Last Documented Arterial Blood Pressure 111/46 - Exam Patient is intubated and sedated Examination of the heart S1 and S2 Examination lungs bilateral breath sounds are heard Abdomen is soft nontender Exertion lower extremity shows edema 1+ bilaterally - Labs CBC & Chem 7: 10/15/22 04:45 10/15/22 04:45 Labs: Abnormal Lab Results - Last 24 Hours (Table) 10/14/22 10/14/22 10/14/22 Range/Units 12:34 17:20 23:37 RBC (3.80-5.40) m/uL Hgb (11.4-16.0) gm/dL Hct (34.0-46.0) % MCV (80.0-100.0) fL MCH (25.0-35.0) pg RDW (11.5-15.5) % Plt Count (150-450) k/uL Macrocytosis PT (9.0-12.0) sec INR (<1.2) ABG pO2 (83-108) mmHg ABG Total CO2 (19-24) mmol/L ABG O2 Saturation (94-97) % Sodium (137-145) mmol/L Chloride (98-107) mmol/L BUN (7-17) mg/dL Creatinine (0.52-1.04) mg/dL Glucose (74-99) mg/dL POC Glucose (mg/dL) 147 H 118 H 127 H (70-110) mg/dL Calcium (8.4-10.2) mg/dL Phosphorus (2.5-4.5) mg/dL Magnesium (1.6-2.3) mg/dL Total Bilirubin (0.2-1.3) mg/dL AST (14-36) U/L ALT (4-34) U/L Total Protein (6.3-8.2) g/dL Albumin (3.5-5.0) g/dL Crossmatch 10/15/22 10/15/22 10/15/22 Range/Units 04:45 04:45 04:45 RBC 1.67 L (3.80-5.40) m/uL Hgb 6.6 L* (11.4-16.0) gm/dL Hct 19.9 L* (34.0-46.0) % MCV 119.1 H (80.0-100.0) fL MCH 39.4 H (25.0-35.0) pg RDW 22.9 H (11.5-15.5) % Plt Count 14 L* (150-450) k/uL Macrocytosis Marked A PT 15.6 H (9.0-12.0) sec INR 1.6 H (<1.2) ABG pO2 (83-108) mmHg ABG Total CO2 (19-24) mmol/L ABG O2 Saturation (94-97) % Sodium 147 H (137-145) mmol/L Chloride 112 H (98-107) mmol/L BUN 62 H (7-17) mg/dL Creatinine 2.56 H (0.52-1.04) mg/dL Glucose 107 H (74-99) mg/dL POC Glucose (mg/dL) (70-110) mg/dL Calcium 7.4 L (8.4-10.2) mg/dL Phosphorus 5.5 H (2.5-4.5) mg/dL Magnesium 1.5 L (1.6-2.3) mg/dL Total Bilirubin 10.4 H (0.2-1.3) mg/dL AST 165 H (14-36) U/L ALT 36 H (4-34) U/L Total Protein 5.2 L (6.3-8.2) g/dL Albumin 2.2 L (3.5-5.0) g/dL Crossmatch 10/15/22 10/15/22 10/15/22 Range/Units 05:12 05:52 06:22 RBC (3.80-5.40) m/uL Hgb (11.4-16.0) gm/dL Hct (34.0-46.0) % MCV (80.0-100.0) fL MCH (25.0-35.0) pg RDW (11.5-15.5) % Plt Count (150-450) k/uL Macrocytosis PT (9.0-12.0) sec INR (<1.2) ABG pO2 112 H (83-108) mmHg ABG Total CO2 26 H (19-24) mmol/L ABG O2 Saturation 99.2 H (94-97) % Sodium (137-145) mmol/L Chloride (98-107) mmol/L BUN (7-17) mg/dL Creatinine (0.52-1.04) mg/dL Glucose (74-99) mg/dL POC Glucose (mg/dL) 123 H (70-110) mg/dL Calcium (8.4-10.2) mg/dL Phosphorus (2.5-4.5) mg/dL Magnesium (1.6-2.3) mg/dL Total Bilirubin (0.2-1.3) mg/dL AST (14-36) U/L ALT (4-34) U/L Total Protein (6.3-8.2) g/dL Albumin (3.5-5.0) g/dL Crossmatch See Detail 10/15/22 Range/Units 08:11 RBC (3.80-5.40) m/uL Hgb (11.4-16.0) gm/dL Hct (34.0-46.0) % MCV (80.0-100.0) fL MCH (25.0-35.0) pg RDW (11.5-15.5) % Plt Count (150-450) k/uL Macrocytosis PT (9.0-12.0) sec INR (<1.2) ABG pO2 (83-108) mmHg ABG Total CO2 (19-24) mmol/L ABG O2 Saturation (94-97) % Sodium (137-145) mmol/L Chloride (98-107) mmol/L BUN (7-17) mg/dL Creatinine (0.52-1.04) mg/dL Glucose (74-99) mg/dL POC Glucose (mg/dL) (70-110) mg/dL Calcium (8.4-10.2) mg/dL Phosphorus (2.5-4.5) mg/dL Magnesium (1.6-2.3) mg/dL Total Bilirubin (0.2-1.3) mg/dL AST (14-36) U/L ALT (4-34) U/L Total Protein (6.3-8.2) g/dL Albumin (3.5-5.0) g/dL Crossmatch See Detail Microbiology - Last 24 Hours (Table) 10/11/22 06:08 Blood Culture - Preliminary Blood No Growth after 96 hours 10/12/22 15:46 Blood Culture - Preliminary Blood No Growth after 48 hours 10/09/22 20:35 Blood Culture Gram Stain - Final Blood Blood Culture - Final Eubacterium lentum 10/09/22 01:00 Blood Culture Gram Stain - Final Blood Blood Culture - Final Escherichia coli Methicillin resist S. aureus Alpha Hemolytic Streptococcus Clostridium perfringens Assessment and Plan Assessment: 1. Acute kidney injury secondary to sepsis with E. coli, staph aureus and alpha hemolytic strep growing in the blood cultures dated 10/09/2022 subsequent blood cultures 10/11/2022 is negative so far in 48 hours. Slightly worsening creatinine and urine output remains minimal. Extremely high vancomycin levels are contributing to acute kidney injury, she is off of vancomycin 2. Mild degree of hypokalemia secondary to GI losses and metabolic alkalosis. 3. History of alcoholic liver disease, total bilirubin is going up to 9.2 > 0.6. LFTs are improving 4. Hepatic encephalopathy with elevated ammonia levels 5. Mild degree of respiratory and metabolic alkalosis 6. Anemia with hemoglobin at 6.6 today, receiving packed RBCs. She has vaginal bleeding 7. Severe thrombocytopenia worsening likely from alcoholism and sepsis 8. Hypernatremia associated with free water deficit, currently maintained on D5W Plan: Patient will need renal replacement therapy in the next 24-48 hours if urine output does not increase
[2022-10-15] MEDS: PHYTONADIONE 10 MG in SODIUM CHLORIDE 0.9% 50 ML IVPB SCH (11:46)
--- NOTE | 2022-10-15 12:25 | P.PN ---
Subjective Progress Note Date: 10/15/22 I am seeing the patient for the first time during this admission. Please refer to Dr. Clemente's note for further details. It is felt patient has hepatic encephalopathy. She continues to be intubated on ventilator. Objective - Vital Signs Vital signs: Vital Signs Temp 98.7 F 10/15/22 10:51 Pulse 122 H 10/15/22 11:39 Resp 24 10/15/22 11:39 BP 109/45 10/15/22 10:51 Pulse Ox 93 L 10/15/22 10:51 FiO2 30 10/15/22 11:23 Intake & Output 10/14/22 10/15/22 10/15/22 18:59 06:59 18:59 Intake Total 2017 1451.287 251.633 Output Total 220 95 15 Balance 1797 1356.287 236.633 Weight 78.8 kg 78.8 kg Intake: IV 1349 1288 147.3 Dextrose 5% in Water 1, 300 100 50 000 ml @ 50 mls/hr IV . Q20H [facility] Rx#:[id number] Lactated Ringers 1,000 ml 180 @ 60 mls/hr IV .[id number] [facility] Rx#:[id number] Linezolid 600 mg In 300 1000 50 Dextrose/Water 1 300ml. bag @ 150 mls/hr IVPB Q12HR [facility] Rx#:[id number] Meropenem 1 gm In Sodium 100 100 33.3 Chloride 0.9% 100 ml @ 33 .3 mls/hr IVPB Q8HR [facility] Rx#:[id number] Phytonadione 10 mg In 50 Sodium Chloride 0.9% 50 ml @ 100 mls/hr IVPB DAILY [facility] Rx#:[id number] Potassium Chloride 20 meq 300 In Water For Injection 1 100ml.bag @ 50 mls/hr IVPB Q2H [facility] Rx#: [id number] Sodium Chloride 0.9% 1, 80 55 5 000 ml @ 75 mls/hr IV . [id number] [facility] Rx#:[id number] pressure bag 39 33 9 Intake, IV Titration 123.287 99.333 Amount Norepinephrine 4 mg In 123.287 99.333 Sodium Chloride 0.9% 250 ml @ 0.03 MCG/KG/MIN 8. 675 mls/hr IV .Q24H [facility] Rx#:[id number] Oral 40 5 Blood Product 668 0 Platelet Pheresis Pas 329 Psoralen Unit [id number] Platelet Pheresis Pas 339 Psoralen Unit [id number] Platelet Pheresis Pas 0 Psoralen Unit [id number] Output: Urine 220 95 15 Other: Voiding Method Indwelling Catheter Indwelling Catheter # Bowel Movements 1 ABP, PAP, CO, CI - Last Documented Arterial Blood Pressure 111/46 - Exam LUNG: Intubated on ventilator. INTEGUMENTARY: Looks jaundice NEURO: Limited because of her condition. Higher mental function: The patient is stupor. No verbally responsive or following commands. Cranial Nerves: I had to manually open her eyes and primary gaze is midline. Pupils are round, equal and reactive to light. No facial weakness. Is breathing over the vent. Motor: Strength is unable to assess because of her condition. No spontaneous movement. SOME OF THE WORK-UP DURING THIS HOSPITAL VISIT CONSISTED OF: Most recent Hemoglobin is 6.6 Ammonia is 16 AST 165 and ALT 36 TSH 0.436, free T4 1.32 Magnesium 1.5 Creatnine most recent 2.56 CT head showed no mass effect, no acute process. Interval development of fluid in the mastoid air cells and middle ear cavities. - Labs CBC & Chem 7: 10/15/22 04:45 10/15/22 04:45 Labs: Abnormal Lab Results - Last 24 Hours (Table) 10/14/22 10/14/22 10/14/22 Range/Units 12:34 17:20 23:37 RBC (3.80-5.40) m/uL Hgb (11.4-16.0) gm/dL Hct (34.0-46.0) % MCV (80.0-100.0) fL MCH (25.0-35.0) pg RDW (11.5-15.5) % Plt Count (150-450) k/uL Macrocytosis PT (9.0-12.0) sec INR (<1.2) ABG pO2 (83-108) mmHg ABG Total CO2 (19-24) mmol/L ABG O2 Saturation (94-97) % Sodium (137-145) mmol/L Chloride (98-107) mmol/L BUN (7-17) mg/dL Creatinine (0.52-1.04) mg/dL Glucose (74-99) mg/dL POC Glucose (mg/dL) 147 H 118 H 127 H (70-110) mg/dL Calcium (8.4-10.2) mg/dL Phosphorus (2.5-4.5) mg/dL Magnesium (1.6-2.3) mg/dL Total Bilirubin (0.2-1.3) mg/dL AST (14-36) U/L ALT (4-34) U/L Total Protein (6.3-8.2) g/dL Albumin (3.5-5.0) g/dL Crossmatch 10/15/22 10/15/22 10/15/22 Range/Units 04:45 04:45 04:45 RBC 1.67 L (3.80-5.40) m/uL Hgb 6.6 L* (11.4-16.0) gm/dL Hct 19.9 L* (34.0-46.0) % MCV 119.1 H (80.0-100.0) fL MCH 39.4 H (25.0-35.0) pg RDW 22.9 H (11.5-15.5) % Plt Count 14 L* (150-450) k/uL Macrocytosis Marked A PT 15.6 H (9.0-12.0) sec INR 1.6 H (<1.2) ABG pO2 (83-108) mmHg ABG Total CO2 (19-24) mmol/L ABG O2 Saturation (94-97) % Sodium 147 H (137-145) mmol/L Chloride 112 H (98-107) mmol/L BUN 62 H (7-17) mg/dL Creatinine 2.56 H (0.52-1.04) mg/dL Glucose 107 H (74-99) mg/dL POC Glucose (mg/dL) (70-110) mg/dL Calcium 7.4 L (8.4-10.2) mg/dL Phosphorus 5.5 H (2.5-4.5) mg/dL Magnesium 1.5 L (1.6-2.3) mg/dL Total Bilirubin 10.4 H (0.2-1.3) mg/dL AST 165 H (14-36) U/L ALT 36 H (4-34) U/L Total Protein 5.2 L (6.3-8.2) g/dL Albumin 2.2 L (3.5-5.0) g/dL Crossmatch 10/15/22 10/15/22 10/15/22 Range/Units 05:12 05:52 08:11 RBC (3.80-5.40) m/uL Hgb (11.4-16.0) gm/dL Hct (34.0-46.0) % MCV (80.0-100.0) fL MCH (25.0-35.0) pg RDW (11.5-15.5) % Plt Count (150-450) k/uL Macrocytosis PT (9.0-12.0) sec INR (<1.2) ABG pO2 112 H (83-108) mmHg ABG Total CO2 26 H (19-24) mmol/L ABG O2 Saturation 99.2 H (94-97) % Sodium (137-145) mmol/L Chloride (98-107) mmol/L BUN (7-17) mg/dL Creatinine (0.52-1.04) mg/dL Glucose (74-99) mg/dL POC Glucose (mg/dL) 123 H (70-110) mg/dL Calcium (8.4-10.2) mg/dL Phosphorus (2.5-4.5) mg/dL Magnesium (1.6-2.3) mg/dL Total Bilirubin (0.2-1.3) mg/dL AST (14-36) U/L ALT (4-34) U/L Total Protein (6.3-8.2) g/dL Albumin (3.5-5.0) g/dL Crossmatch See Detail 10/15/22 Range/Units 11:10 RBC (3.80-5.40) m/uL Hgb (11.4-16.0) gm/dL Hct (34.0-46.0) % MCV (80.0-100.0) fL MCH (25.0-35.0) pg RDW (11.5-15.5) % Plt Count (150-450) k/uL Macrocytosis PT (9.0-12.0) sec INR (<1.2) ABG pO2 (83-108) mmHg ABG Total CO2 (19-24) mmol/L ABG O2 Saturation (94-97) % Sodium (137-145) mmol/L Chloride (98-107) mmol/L BUN (7-17) mg/dL Creatinine (0.52-1.04) mg/dL Glucose (74-99) mg/dL POC Glucose (mg/dL) 140 H (70-110) mg/dL Calcium (8.4-10.2) mg/dL Phosphorus (2.5-4.5) mg/dL Magnesium (1.6-2.3) mg/dL Total Bilirubin (0.2-1.3) mg/dL AST (14-36) U/L ALT (4-34) U/L Total Protein (6.3-8.2) g/dL Albumin (3.5-5.0) g/dL Crossmatch Microbiology - Last 24 Hours (Table) 10/11/22 06:08 Blood Culture - Preliminary Blood No Growth after 96 hours 10/12/22 15:46 Blood Culture - Preliminary Blood No Growth after 48 hours 10/09/22 20:35 Blood Culture Gram Stain - Final Blood Blood Culture - Final Eubacterium lentum 10/09/22 01:00 Blood Culture Gram Stain - Final Blood Blood Culture - Final Escherichia coli Methicillin resist S. aureus Alpha Hemolytic Streptococcus Clostridium perfringens Assessment and Plan Assessment: * Altered mental status, likely due to hepatic encephalopathy, probable superimposed toxic metabolic encephalopathy. * Acute renal failure--worsening * Hyponatremia * Hypomagnesemia * Anemia, * Thrombocytopenia, severe * Hypothyroidism * Macrocytosis, likely multifactorial due to below * Chronic alcoholism * History of B12 deficiency * History of folate deficiency Plan: * Pending EEG today to rule out nonconvulsive status. * Is on thiamine 100mg daily. * Patient had vitamin B12 deficiency and last level is on 07/29 (172). I will get repet as well has folate deficiency. I will get repeat levels and in meantime will start her on Vitamin B12 1000mcg daily and folic acid 1mg daily. * Medical management as per IM and other specialties. Will continue to follow. Time with Patient: Less than 30
[2022-10-15] MEDS: MAGNESIUM SULFATE-D5W PMX 1 GM in DEXTROSE/WATER 1 100ML.BAG IVPB SCH ×2 (12:30→15:14)
[2022-10-15] MEDS: CYANOCOBALAMIN 500 MCG TAB PO SCH (15:15)
[2022-10-15] MEDS: FOLIC ACID 1 MG TAB PO SCH (15:15)
--- NOTE | 2022-10-15 15:24 | P.PN ---
Subjective Progress Note Date: 10/15/22 This is a 42-year-old female who was recently admitted with bilateral pneumonia, sepsis, alcohol intoxication withdrawal and remains on mechanical ventilation ICU with multiple medical consultations following. Significant other currently working on obtaining guardianship to make decisions and patient is no code currently. Apparently has a guardianship hearing on Saturday and will follow- up after that. Patient currently is afebrile and remains tachycardic and continues on mechanical ventilation with an FiO2 of 30% with a PEEP of 8. Patient is continued on IV antibiotics in the form of meropenem and linezolid and is requiring small dose Levophed and is currently not on any type of sedation and remains unresponsive. Neurology following an EEG is ordered today. Review of systems: Unable to obtain as patient is on mechanical vent and unresponsive Active Medications Albuterol Sulfate (Albuterol Nebulized 2.5 Mg/3 Ml) 2.5 mg INHALATION RT-Q4H [facility] Last Admin: 10/15/22 11:26 Dose: 2.5 mg Chlorhexidine Gluconate (Chlorhexidine Gluconate 15 Ml Cup) 15 ml MUCOUS MEM BID [facility] Last Admin: 10/15/22 09:02 Dose: 15 ml Cyanocobalamin (Cyanocobalamin 500 Mcg Tab) 1,000 mcg PO DAILY [facility] Dextrose/Water (Dextrose 50% Syringe 50 Ml) 25 ml IVP PER PROTOCOL PRN; Pr otocol PRN Reason: Hypoglycemia Last Admin: 10/13/22 07:49 Dose: 25 ml Dextrose/Water (Dextrose 50% Syringe 50 Ml) 50 ml IVP PER PROTOCOL PRN; Protocol PRN Reason: Hypoglycemia Folic Acid (Folic Acid 1 Mg Tab) 1 mg PO DAILY [facility] Linezolid 600 mg/ IV Solution 300 mls @ 150 mls/hr IVPB Q12HR [facility]; Protocol Last Admin: 10/15/22 09:02 Dose: 150 mls/hr Dextrose/Water (Dextrose 5%-Water Iv Soln) 1,000 mls @ 50 mls/hr IV .Q20H [facility] Last Admin: 10/15/22 09:04 Dose: 50 mls/hr Phytonadione 10 mg/ Sodium (Chloride) 51 mls @ 100 mls/hr IVPB DAILY [facility] Last Admin: 10/15/22 11:46 Dose: 100 mls/hr Meropenem 1 gm/ Sodium (Chloride) 100 mls @ 33.3 mls/hr IVPB Q8HR [facility]; Protocol Last Admin: 10/15/22 09:02 Dose: 33.3 mls/hr Norepinephrine Bitartrate 4 mg (/ Sodium Chloride) 254 mls @ 8.675 mls/hr IV .Q24H [facility]; Protocol Last Titration: 10/15/22 08:30 Dose: 0.1 mcg/kg/min, 28.918 mls/hr Insulin Aspart (Insulin Aspart (Novolog) 100 Unit/Ml Vial) 0 unit SQ Q6H [facility]; Protocol Last Admin: 10/15/22 11:46 Dose: Not Given Ipratropium [place] (Ipratropium 0.5 Mg/2.5 Ml Nebu) 0.5 mg INHALATION RT-Q4H [facility] Last Admin: 10/15/22 11:26 Dose: 0.5 mg Miscellaneous Information (Potassium Replacement Protocol 1 Each Misc) 1 each MISCELLANE DAILY PRN; Protocol PRN Reason: Per Protocol Naloxone HCl (Naloxone 0.4 Mg/Ml 1 Ml Vial) 0.2 mg IV Q2M PRN PRN Reason: Opioid Reversal Pantoprazole Sodium (Pantoprazole 40 Mg/10 Ml Vial) 40 mg IV BID [facility] Last Admin: 10/15/22 09:03 Dose: 40 mg Rifaximin (Rifaximin 550 Mg Tablet) 550 mg PO BID [facility]; Protocol Stop: 11/08/22 09:01 Last Admin: 10/15/22 09:03 Dose: 550 mg Thiamine HCl (Thiamine 100 Mg Tab) 100 mg PO DAILY [facility] Last Admin: 10/15/22 09:03 Dose: 100 mg PHYSICAL EXAMINATION: GENERAL: The patient is alert and oriented x0, currently on mechanical vent and unresponsive ill-appearing HEENT: Pupils are round and equally reacting to light. EOMI. no scleral icterus. No conjunctival pallor. Normocephalic, atraumatic. No pharyngeal erythema. No thyromegaly. CARDIOVASCULAR: S1 and S2 muffled , tachycardia PULMONARY: diminished breath sounds bilaterally with coarse scattered rhonchi and crackles noted. ABDOMEN: soft. Nontender on exam. -distended, normoactive bowel sounds. No palpable organomegaly. MUSCULOSKELETAL: No joint swelling or deformity. EXTREMITIES: No cyanosis, clubbing, generalized edema noted throughout NEUROLOGICAL: Unable to completely assess as patient is unresponsive and on me chanical ventilation SKIN: No rashes. Jaundice Assessment: Bilateral pneumonia with possible aspiration, with sepsis, present on admission Acute hypoxic respiratory failure secondary to above requiring mechanical ventilation Anemia, thrombocytopenia secondary to alcoholic liver disease alcohol withdrawal syndrome and delirium tremens sinus tachycardia Acute renal failure Cirrhosis of the liver Possible vaginal bleeding Alcoholic hepatitis with chronic liver disease and ascites, cirrhosis of the liver GI prophylaxis DVT prophylaxis No code Plan: Recommend to continue with current medications and management and being followed in the ICU as patient remains on mechanical ventilation. Patient is off all sedation with neurology following as well scheduled for EEG today. Patient does not have any immediate family to make decisions and does have a significant other although they are not and he is currently working on obtaining guardianship through the court to make decisions as patient has been made no code with possible comfort measures once he obtains guardianship. Patient is continued on antibiotics and has been off all sedation and remains unresponsive will continue current supportive measures until follow-up with significant other due to multiple complex medical issues, prognosis is extremely guarded and poor as well. The impression and plan of care has been dictated by Cee Owens, nurse practitioner as directed. Dr. Bebe MD I have performed a history and examination and MDM of this patient, discussed the same with the dictator, and agree with the dictator's assessment and plan as written ,documented as a scribe. Based on total visit time, I have performed more than 50% of the visit. Any additional findings or plans will be noted. Objective - Vital Signs Vital signs: Vital Signs Temp 98.7 F 10/15/22 08:00 Pulse 125 H 10/15/22 09:15 Resp 21 10/15/22 09:15 BP 110/49 10/15/22 07:00 Pulse Ox 92 L 10/15/22 09:15 FiO2 30 10/15/22 08:45 Intake & Output 10/14/22 10/15/22 10/15/22 18:59 06:59 18:59 Intake Total 2016 1451.287 251.633 Output Total 220 95 15 Balance 1797 1356.287 236.633 Weight 78.8 kg Intake: IV 1349 1288 147.3 Dextrose 5% in Water 1, 300 100 50 000 ml @ 50 mls/hr IV . Q20H [facility] Rx#:[id number] Lactated Ringers 1,000 ml 180 @ 60 mls/hr IV .[id number] [facility] Rx#:[id number] Linezolid 600 mg In 300 1000 50 Dextrose/Water 1 300ml. bag @ 150 mls/hr IVPB Q12HR [facility] Rx#:[id number] Meropenem 1 gm In Sodium 100 100 33.3 Chloride 0.9% 100 ml @ 33 .3 mls/hr IVPB Q8HR [facility] Rx#:[id number] Phytonadione 10 mg In 50 Sodium Chloride 0.9% 50 ml @ 100 mls/hr IVPB DAILY [facility] Rx#:[id number] Potassium Chloride 20 meq 300 In Water For Injection 1 100ml.bag @ 50 mls/hr IVPB Q2H [facility] Rx#: [id number] Sodium Chloride 0.9% 1, 80 55 5 000 ml @ 75 mls/hr IV . [id number] [facility] Rx#:[id number] pressure bag 39 33 9 Intake, IV Titration 123.287 99.333 Amount Norepinephrine 4 mg In 123.287 99.333 Sodium Chloride 0.9% 250 ml @ 0.03 MCG/KG/MIN 8. 675 mls/hr IV .Q24H [facility] Rx#:[id number] Oral 40 5 Blood Product 668 Platelet Pheresis Pas 329 Psoralen Unit [id number] Platelet Pheresis Pas 339 Psoralen Unit [id number] Output: Urine 220 95 15 Other: Voiding Method Indwelling Catheter Indwelling Catheter # Bowel Movements 1 ABP, PAP, CO, CI - Last Documented Arterial Blood Pressure 111/46 - Labs CBC & Chem 7: 10/15/22 04:45 10/15/22 04:45 Labs: Abnormal Lab Results - Last 24 Hours (Table) 10/14/22 10/14/22 10/14/22 Range/Units 06:00 12:34 17:20 RBC (3.80-5.40) m/uL Hgb (11.4-16.0) gm/dL Hct (34.0-46.0) % MCV (80.0-100.0) fL MCH (25.0-35.0) pg RDW (11.5-15.5) % Plt Count (150-450) k/uL Macrocytosis PT (9.0-12.0) sec INR (<1.2) ABG pO2 (83-108) mmHg ABG Total CO2 (19-24) mmol/L ABG O2 Saturation (94-97) % Sodium 149 H (137-145) mmol/L Potassium 3.2 L (3.5-5.1) mmol/L Chloride 114 H (98-107) mmol/L BUN 55 H (7-17) mg/dL Creatinine 2.40 H (0.52-1.04) mg/dL Glucose 108 H (74-99) mg/dL POC Glucose (mg/dL) 147 H 118 H (70-110) mg/dL Calcium 7.5 L (8.4-10.2) mg/dL Phosphorus (2.5-4.5) mg/dL Magnesium (1.6-2.3) mg/dL Total Bilirubin 9.6 H (0.2-1.3) mg/dL AST 184 H (14-36) U/L ALT 43 H (4-34) U/L Total Protein 5.2 L (6.3-8.2) g/dL Albumin 2.2 L (3.5-5.0) g/dL Crossmatch 10/14/22 10/15/22 10/15/22 Range/Units 23:37 04:45 04:45 RBC 1.67 L (3.80-5.40) m/uL Hgb 6.6 L* (11.4-16.0) gm/dL Hct 19.9 L* (34.0-46.0) % MCV 119.1 H (80.0-100.0) fL MCH 39.4 H (25.0-35.0) pg RDW 22.9 H (11.5-15.5) % Plt Count 14 L* (150-450) k/uL Macrocytosis Marked A PT 15.6 H (9.0-12.0) sec INR 1.6 H (<1.2) ABG pO2 (83-108) mmHg ABG Total CO2 (19-24) mmol/L ABG O2 Saturation (94-97) % Sodium (137-145) mmol/L Potassium (3.5-5.1) mmol/L Chloride (98-107) mmol/L BUN (7-17) mg/dL Creatinine (0.52-1.04) mg/dL Glucose (74-99) mg/dL POC Glucose (mg/dL) 127 H (70-110) mg/dL Calcium (8.4-10.2) mg/dL Phosphorus (2.5-4.5) mg/dL Magnesium (1.6-2.3) mg/dL Total Bilirubin (0.2-1.3) mg/dL AST (14-36) U/L ALT (4-34) U/L Total Protein (6.3-8.2) g/dL Albumin (3.5-5.0) g/dL Crossmatch 10/15/22 10/15/22 10/15/22 Range/Units 04:45 05:12 05:52 RBC (3.80-5.40) m/uL Hgb (11.4-16.0) gm/dL Hct (34.0-46.0) % MCV (80.0-100.0) fL MCH (25.0-35.0) pg RDW (11.5-15.5) % Plt Count (150-450) k/uL Macrocytosis PT (9.0-12.0) sec INR (<1.2) ABG pO2 112 H (83-108) mmHg ABG Total CO2 26 H (19-24) mmol/L ABG O2 Saturation 99.2 H (94-97) % Sodium 147 H (137-145) mmol/L Potassium (3.5-5.1) mmol/L Chloride 112 H (98-107) mmol/L BUN 62 H (7-17) mg/dL Creatinine 2.56 H (0.52-1.04) mg/dL Glucose 107 H (74-99) mg/dL POC Glucose (mg/dL) 123 H (70-110) mg/dL Calcium 7.4 L (8.4-10.2) mg/dL Phosphorus 5.5 H (2.5-4.5) mg/dL Magnesium 1.5 L (1.6-2.3) mg/dL Total Bilirubin 10.4 H (0.2-1.3) mg/dL AST 165 H (14-36) U/L ALT 36 H (4-34) U/L Total Protein 5.2 L (6.3-8.2) g/dL Albumin 2.2 L (3.5-5.0) g/dL Crossmatch 10/15/22 Range/Units 06:22 RBC (3.80-5.40) m/uL Hgb (11.4-16.0) gm/dL Hct (34.0-46.0) % MCV (80.0-100.0) fL MCH (25.0-35.0) pg RDW (11.5-15.5) % Plt Count (150-450) k/uL Macrocytosis PT (9.0-12.0) sec INR (<1.2) ABG pO2 (83-108) mmHg ABG Total CO2 (19-24) mmol/L ABG O2 Saturation (94-97) % Sodium (137-145) mmol/L Potassium (3.5-5.1) mmol/L Chloride (98-107) mmol/L BUN (7-17) mg/dL Creatinine (0.52-1.04) mg/dL Glucose (74-99) mg/dL POC Glucose (mg/dL) (70-110) mg/dL Calcium (8.4-10.2) mg/dL Phosphorus (2.5-4.5) mg/dL Magnesium (1.6-2.3) mg/dL Total Bilirubin (0.2-1.3) mg/dL AST (14-36) U/L ALT (4-34) U/L Total Protein (6.3-8.2) g/dL Albumin (3.5-5.0) g/dL Crossmatch See Detail Microbiology - Last 24 Hours (Table) 10/11/22 06:08 Blood Culture - Preliminary Blood No Growth after 96 hours 10/12/22 15:46 Blood Culture - Preliminary Blood No Growth after 48 hours 10/09/22 20:35 Blood Culture Gram Stain - Final Blood Blood Culture - Final Eubacterium lentum 10/09/22 01:00 Blood Culture Gram Stain - Final Blood Blood Culture - Final Escherichia coli Methicillin resist S. aureus Alpha Hemolytic Streptococcus Clostridium perfringens
--- NOTE | 2022-10-15 16:10 | P.PN ---
Subjective Progress Note Date: 10/15/22 Principal diagnosis: Sepsis and bacteremia Patient is a 42-year-old female with a past medical history significant for GERD reflux diabetic steatosis alcohol abuse presenting to the ER for evaluation of mental status changes , patient was noticed to be hypotensive afebrile and evidence of sepsis requiring intubation and admission to the ICU. On today's evaluation had that is 10/15/2022, the patient remains to be afebrile, the patient is requiring low-dose pressor support to maintain her blood pressure per the nursing staff started this morning, the patient FiO2 is down to 30% and no significant purulent secretion through the ET and no diarrhea has reported by the nursing staff Objective - Vital Signs Vital signs: Vital Signs Temp 98.7 F 10/15/22 10:51 Pulse 122 H 10/15/22 11:39 Resp 24 10/15/22 11:39 BP 109/45 10/15/22 10:51 Pulse Ox 93 L 10/15/22 10:51 FiO2 30 10/15/22 11:23 Intake & Output 10/14/22 10/15/22 10/15/22 18:59 06:59 18:59 Intake Total 2016 1451.287 251.633 Output Total 220 95 15 Balance 1797 1356.287 236.633 Weight 78.8 kg 78.8 kg Intake: IV 1349 1288 147.3 Dextrose 5% in Water 1, 300 100 50 000 ml @ 50 mls/hr IV . Q20H [facility] Rx#:[id number] Lactated Ringers 1,000 ml 180 @ 60 mls/hr IV .[id number] [facility] Rx#:[id number] Linezolid 600 mg In 300 1000 50 Dextrose/Water 1 300ml. bag @ 150 mls/hr IVPB Q12HR [facility] Rx#:[id number] Meropenem 1 gm In Sodium 100 100 33.3 Chloride 0.9% 100 ml @ 33 .3 mls/hr IVPB Q8HR [facility] Rx#:[id number] Phytonadione 10 mg In 50 Sodium Chloride 0.9% 50 ml @ 100 mls/hr IVPB DAILY [facility] Rx#:[id number] Potassium Chloride 20 meq 300 In Water For Injection 1 100ml.bag @ 50 mls/hr IVPB Q2H [facility] Rx#: [id number] Sodium Chloride 0.9% 1, 80 55 5 000 ml @ 75 mls/hr IV . [id number] [facility] Rx#:[id number] pressure bag 39 33 9 Intake, IV Titration 123.287 99.333 Amount Norepinephrine 4 mg In 123.287 99.333 Sodium Chloride 0.9% 250 ml @ 0.03 MCG/KG/MIN 8. 675 mls/hr IV .Q24H [facility] Rx#:[id number] Oral 40 5 Blood Product 668 0 Platelet Pheresis Pas 329 Psoralen Unit [id number] Platelet Pheresis Pas 339 Psoralen Unit [id number] Platelet Pheresis Pas 0 Psoralen Unit [id number] Output: Urine 220 95 15 Other: Voiding Method Indwelling Catheter Indwelling Catheter # Bowel Movements 1 ABP, PAP, CO, CI - Last Documented Arterial Blood Pressure 111/46 - Exam GENERAL DESCRIPTION: A middle-aged female intubated on the vent RESPIRATORY SYSTEM: Unlabored breathing , decreased breath sounds at bases HEART: S1 S2 regular rate and rhythm , ABDOMEN: Soft , mild distention EXTREMITIES: No edema feet - Labs CBC & Chem 7: 10/15/22 04:45 10/15/22 04:45 Labs: Abnormal Lab Results - Last 24 Hours (Table) 10/14/22 10/14/22 10/14/22 Range/Units 12:34 17:20 23:37 RBC (3.80-5.40) m/uL Hgb (11.4-16.0) gm/dL Hct (34.0-46.0) % MCV (80.0-100.0) fL MCH (25.0-35.0) pg RDW (11.5-15.5) % Plt Count (150-450) k/uL Macrocytosis PT (9.0-12.0) sec INR (<1.2) ABG pO2 (83-108) mmHg ABG Total CO2 (19-24) mmol/L ABG O2 Saturation (94-97) % Sodium (137-145) mmol/L Chloride (98-107) mmol/L BUN (7-17) mg/dL Creatinine (0.52-1.04) mg/dL Glucose (74-99) mg/dL POC Glucose (mg/dL) 147 H 118 H 127 H (70-110) mg/dL Calcium (8.4-10.2) mg/dL Phosphorus (2.5-4.5) mg/dL Magnesium (1.6-2.3) mg/dL Total Bilirubin (0.2-1.3) mg/dL AST (14-36) U/L ALT (4-34) U/L Total Protein (6.3-8.2) g/dL Albumin (3.5-5.0) g/dL Crossmatch 10/15/22 10/15/22 10/15/22 Range/Units 04:45 04:45 04:45 RBC 1.67 L (3.80-5.40) m/uL Hgb 6.6 L* (11.4-16.0) gm/dL Hct 19.9 L* (34.0-46.0) % MCV 119.1 H (80.0-100.0) fL MCH 39.4 H (25.0-35.0) pg RDW 22.9 H (11.5-15.5) % Plt Count 14 L* (150-450) k/uL Macrocytosis Marked A PT 15.6 H (9.0-12.0) sec INR 1.6 H (<1.2) ABG pO2 (83-108) mmHg ABG Total CO2 (19-24) mmol/L ABG O2 Saturation (94-97) % Sodium 147 H (137-145) mmol/L Chloride 112 H (98-107) mmol/L BUN 62 H (7-17) mg/dL Creatinine 2.56 H (0.52-1.04) mg/dL Glucose 107 H (74-99) mg/dL POC Glucose (mg/dL) (70-110) mg/dL Calcium 7.4 L (8.4-10.2) mg/dL Phosphorus 5.5 H (2.5-4.5) mg/dL Magnesium 1.5 L (1.6-2.3) mg/dL Total Bilirubin 10.4 H (0.2-1.3) mg/dL AST 165 H (14-36) U/L ALT 36 H (4-34) U/L Total Protein 5.2 L (6.3-8.2) g/dL Albumin 2.2 L (3.5-5.0) g/dL Crossmatch 10/15/22 10/15/22 10/15/22 Range/Units 05:12 05:52 06:22 RBC (3.80-5.40) m/uL Hgb (11.4-16.0) gm/dL Hct (34.0-46.0) % MCV (80.0-100.0) fL MCH (25.0-35.0) pg RDW (11.5-15.5) % Plt Count (150-450) k/uL Macrocytosis PT (9.0-12.0) sec INR (<1.2) ABG pO2 112 H (83-108) mmHg ABG Total CO2 26 H (19-24) mmol/L ABG O2 Saturation 99.2 H (94-97) % Sodium (137-145) mmol/L Chloride (98-107) mmol/L BUN (7-17) mg/dL Creatinine (0.52-1.04) mg/dL Glucose (74-99) mg/dL POC Glucose (mg/dL) 123 H (70-110) mg/dL Calcium (8.4-10.2) mg/dL Phosphorus (2.5-4.5) mg/dL Magnesium (1.6-2.3) mg/dL Total Bilirubin (0.2-1.3) mg/dL AST (14-36) U/L ALT (4-34) U/L Total Protein (6.3-8.2) g/dL Albumin (3.5-5.0) g/dL Crossmatch See Detail 10/15/22 10/15/22 Range/Units 08:11 11:10 RBC (3.80-5.40) m/uL Hgb (11.4-16.0) gm/dL Hct (34.0-46.0) % MCV (80.0-100.0) fL MCH (25.0-35.0) pg RDW (11.5-15.5) % Plt Count (150-450) k/uL Macrocytosis PT (9.0-12.0) sec INR (<1.2) ABG pO2 (83-108) mmHg ABG Total CO2 (19-24) mmol/L ABG O2 Saturation (94-97) % Sodium (137-145) mmol/L Chloride (98-107) mmol/L BUN (7-17) mg/dL Creatinine (0.52-1.04) mg/dL Glucose (74-99) mg/dL POC Glucose (mg/dL) 140 H (70-110) mg/dL Calcium (8.4-10.2) mg/dL Phosphorus (2.5-4.5) mg/dL Magnesium (1.6-2.3) mg/dL Total Bilirubin (0.2-1.3) mg/dL AST (14-36) U/L ALT (4-34) U/L Total Protein (6.3-8.2) g/dL Albumin (3.5-5.0) g/dL Crossmatch See Detail Microbiology - Last 24 Hours (Table) 10/11/22 06:08 Blood Culture - Preliminary Blood No Growth after 96 hours 10/12/22 15:46 Blood Culture - Preliminary Blood No Growth after 48 hours 10/09/22 20:35 Blood Culture Gram Stain - Final Blood Blood Culture - Final Eubacterium lentum 10/09/22 01:00 Blood Culture Gram Stain - Final Blood Blood Culture - Final Escherichia coli Methicillin resist S. aureus Alpha Hemolytic Streptococcus Clostridium perfringens Assessment and Plan (1) Sepsis Current Visit: Yes Status: Acute Code(s): A41.9 - SEPSIS, UNSPECIFIED ORGANISM SNOMED Code(s): 33527649 Plan: 1patient was in the hospital with sepsis/septic shock in this patient who did have a fever hypotension elevated lactic acid source could be abdominal , did have elevated liver enzyme however ultrasound of the abdomen did not show any evidence of cholecystitis, patient did have component of pneumonia 2-patient with cephalexin allergy that would limit the number of antibiotics safe to use, per discussion with the pharmacist not able to use Unasyn or Zosyn 3-the patient did have MRSA pneumonia and did have worsening of the kidney function and high vancomycin trough patient has been switched over to Zyvox and will be continued 4patient also have some E. coli bacteremia and also growing Clostridium perfr ingens likely abdominal source , patient to continue with the meropenem Prognosis remains guarded and possible plan for withdrawal of care per the nursing staff Time with Patient: Less than 30
[2022-10-15 18:35] LABS: Glucose,Whole Blood 114 mg/dL (70-110)
--- NOTE | 2022-10-15 21:03 | EEG ---
ELECTROENCEPHALOGRAM REPORT CLINICAL HISTORY: This is a 42-year-old woman, who has altered mental status. The video EEG is obtained to evaluate for seizure epileptiform activity. RELEVANT MEDICATION: The patient is not on any anti-seizure medication. EEG TYPE: The patient is intubated on a ventilator. The background consists of [id number] voltage of 2 to 3 hertz activity. There is no physiological sleep architecture seen. There is no focal slowing. Interictal and ictal is none. ACTIVATION PROCEDURE: Photic stimulation did not evoke a posterior driving response. There is no abnormality during the photic stimulation. Hyperventilation is not performed. CLINICAL INTERPRETATION: This is an abnormal routine EEG. The background slowing is suggestive of severe encephalopathy likely due to toxic metabolic abnormality. Otherwise, there is no focal slowing, epileptiform discharges, or seizure on the EEG. Clinical correlation is recommended. JERRY / ROMEO: [id number] / MTDD
[2022-10-16 00:40] LABS: Glucose,Whole Blood 125 mg/dL (70-110)
[2022-10-16] MEDS: MEROPENEM 1 GM in SODIUM CHLORIDE 0.9% 100 ML IVPB SCH ×4 (00:42→23:29)
[2022-10-16] MEDS: INSULIN ASPART (NovoLOG) 100 UNIT/ML VIAL SQ SCH ×5 (03:37→23:31)
[2022-10-16 05:14] LABS: Glucose,Whole Blood 125 mg/dL (70-110)
[2022-10-16 05:31] LABS: Calcium 7.7 mg/dL (8.4-10.2); Potassium 3.9 mmol/L (3.5-5.1)
[2022-10-16] MEDS: NOREPINEPHRINE 4 MG in SODIUM CHLORIDE 0.9% 250 ML IV SCH ×3 (05:39→23:31)
[2022-10-16 05:41] LABS: Anisocytosis Marked; Basophils % (A) 1 %; Eosinophils # (A) 0.2 k/uL (0-0.7); Eosinophils % (A) 2 %; HCT 21.6 % (34.0-46.0); HGB 7.4 gm/dL (11.4-16.0); Lymphocytes # (A) 1.7 k/uL (1.0-4.8); Lymphocytes % (A) 21 %; MCH 37.2 pg (25.0-35.0); Macrocytosis Marked; Mean Platelet Volume 10.9; Monocytes # (A) 0.6 k/uL (0-1.0); Monocytes % (A) 8 %; Neutrophils # (A) 5.5 k/uL (1.3-7.7); Neutrophils % (A) 66 %; Poikilocytosis Slight; RBC 1.98 m/uL (3.80-5.40); WBC 8.3 k/uL (3.8-10.6)
[2022-10-16 05:44] LABS: MCV 109.2 fL (80.0-100.0); RDW 26.2 % (11.5-15.5)
[2022-10-16 05:45] LABS: Platelet Count 21 k/uL (150-450)
[2022-10-16 06:02] LABS: ABG HCO3 24 mmol/L (21-25); ABG Oxygen Saturation 97.3 % (94-97); ABG PCO2 39 mmHg (35-45); ABG PO2 87 mmHg (83-108); ABG TCO2 25 mmol/L (19-24); Allen Test Performed? Yes
[2022-10-16] MEDS: DEXTROSE 5% IN WATER 1,000 ML IV SCH ×2 (06:46→23:30)
[2022-10-16] MEDS: IPRATROPIUM-ALBUTEROL 3 ML NEB INHALATION SCH ×5 (07:54→23:45)
--- NOTE | 2022-10-16 08:29 | XR ---
EXAMINATION TYPE: XR chest 1V portable DATE OF EXAM: 10/16/2022 COMPARISON: 10/15/2022 HISTORY: SOB, Follow Up FINDINGS: Indwelling tubes and catheters are unchanged. Perihilar upper lobe infiltrates remain unchanged. Stable appearance of the cardio-mediastinal structures at this time. IMPRESSION: 1. Stable portable chest. Clinical correlation and follow up until resolution is recommended.
[2022-10-16] MEDS: CHLORHEXIDINE GLUCONATE 15 ML CUP MUCOUS MEM SCH ×2 (08:30→21:22)
[2022-10-16] MEDS: PANTOPRAZOLE 40 MG/10 ML VIAL IV SCH ×2 (08:31→21:22)
[2022-10-16] MEDS: THIAMINE 100 MG TAB PO SCH (08:31)
[2022-10-16] MEDS: LINEZOLID 600 MG in DEXTROSE/WATER 1 300ML.BAG IVPB SCH ×2 (08:31→21:22)
[2022-10-16] MEDS: PHYTONADIONE 10 MG in SODIUM CHLORIDE 0.9% 50 ML IVPB SCH (08:31)
[2022-10-16] MEDS: FOLIC ACID 1 MG TAB PO SCH (08:31)
[2022-10-16] MEDS: CYANOCOBALAMIN 500 MCG TAB PO SCH (08:31)
[2022-10-16] MEDS: RIFAXIMIN 550 MG TABLET PO SCH ×2 (08:31→21:21)
--- NOTE | 2022-10-16 10:37 | P.PN ---
Subjective Progress Note Date: 10/16/22 Principal diagnosis: Respiratory failure. Reevaluated today on 10/11/2022, patient remains in the ICU, intubated and mechanically ventilated. She is now on assist control rate of 24th of volume 400 FiO2 50% PEEP of 8 and a increased the PEEP to 10. ABG showed a pO2 of 59 pCO2 40 pH of 7.33. Patient is receiving a unit of packed RBC this morning for hemoglobin of 6.8. Her renal functioning seems to be deteriorating and worsening creatinine is up to 2.01. Liver enzymes remain elevated. Ammonia level is pending. Nephrology was consulted for her acute kidney injury, diabetes concern is the patient developing acute hepatorenal syndrome. Urine output remains marginal, Lasix was ordered to be given 1. Her IV fluid is Down to KVO, remains on sodium bicarb drip. Patient remains on norepinephrine at 0.12 she is also on Versed 3 mg/h, and propofol at 75 mcg/kg/m. 0.9 normal saline at 75 mL/h this will be cut down to KVO, and Lasix will be given. Chest x-ray is showing worsening in her consolidation in the left lower lobe, and I suspect there may be a component of groundglass appearance suggestive of mild interstitial edema and fluid overload. WBC count is 3.9 hemoglobin 6.8. Electrolytes are abnormal with sodium 145 potassium 2.8 bicarb is 20 BUN is 49 and creatinine 2.0 1 repeat ammonia level today is 89, remains quite elevated, patient is on lactulose and she is also on rifaximin. Reevaluated today on 10/12/2022, patient remains in the ICU intubated and mechanically ventilated. She is on assist control rate of 24-400 FiO2 50% and PEEP of 10 ABG showed a pO2 of 53 pCO2 34 pH of 7.44, hence FiO2 was increased to 50%*of 40%. Chest x-ray is showing improvement in her bilateraldisease especially on the left side. Remains on propofol at 25 mg/kg/m norepinephrine at 0.04 mcg/kg/m vasopressin 0.03 units per minute and bicarb drip which I cut it down to 25 mL per hour. 50 mL per hour. Patient remains on lactulose and ammonia level is down to 46 today. She will be receiving a dose of Lasix 80 mg IV push. I will discontinue propofol since the patient may not require much sedation. Patient is definitely not ready for any form of weaning or extubation at this point. Her platelets were noted to be quite low today, and I'm recommending 2 units of platelets to be given. His sputum came back positive for MRSA, and she remains covered with vancomycin. WBC count today is 5.4 hemoglobin is 8.4. Her platelets are 19,000. Electrolytes are normal except for sodium 145 BUN of 38 creatinine 2.17. Urine output is marginal, and I have recommended another dose of Lasix 80 mg to be given today IV push. Patient was reevaluated today on 10/13/2022, remains in the ICU, intubated and mechanically ventilated, patient is off sedation for the last 24 hours, no purposeful responses, no responses to any deep painful stimuli, she is on assist control rate of 24 volume 400 FiO2 40% PEEP is cut down from 10-8. ABG showed a pO2 of 145 pCO2 32 pH of 7.50. Platelets are low again, 15,017 the patient 2 units of platelets to be given today. We have ordered the bicarb to be discontinued since the bicarb level is normal. No functioning remains borderline about the same compared to yesterday. Patient is again off sedation for the last 24 hours. Chest x-ray continues to show bilateral airspace disease consistent with pneumonia, WBC count is 6.0 hemoglobin is 8.6, basic metabolic profile showed sodium of 146 potassium 3.2 chloride 111 bicarb 25 BUN 46 creatinine 2.44 liver enzymes remain a bit elevated with a total bilirubin of 9.2. Reevaluated today on 10/25/19 patient is sitting in the ICU, intubated and mechanically ventilated. Her ventilator settings were adjusted today, she is now on assist control rate of 18, volume 400 FiO2 40% and PEEP of 8 and her ABG showed a pO2 of 144 pCO2 36 pH of 7.44 hence the patient had FiO2 cut down to 35%. Chest x-ray continues to show diffuse bilateral infiltrates, relatively unchanged. Labs were reviewed she has a sodium 149 potassium 3.2 chloride 114 bicarb is 24 BUN is 55 creatinine 2.40. WBC count is 5.6 hemoglobin 7.2 hematocrit 21.2 platelets are down to 11,000, and the patient is receiving 2 units of platelets today. Patient had an episode of vaginal bleeding yesterday, it was basically a large blood clot coming out of her vaginal area. Patient had a test that came back negative. Patient is getting worse, she developing worsening abdominal distention, worsening bipedal edema, anasarca, ascites, he is also developing worsening neurological status and I'm recommending a CT of the brain to be done today, and a neurological consultation. Antibiotics curran, the patient was seen by infectious disease, and she is now on Rocephin and she is on linezolid/Zyvox. Her IV fluid has been changed to D5W cerebellar are mostly because of her hypernatremia that was noted on the labs today. Patient remains on lactulose, ammonia level is pending today. She is also on rifaximin.. Patient remains off sedation completely. Progress note dated 10/15/2022. The patient is seen today in room 254. She was admitted back on October 08 with mental status changes, aspiration pneumonia, alcoholic liver disease, alcohol withdrawal syndrome, and sepsis. The patient was intubated on the same today, October 08. She remains on the mechanical ventilator, at volume assist control, rate 18, tidal volume 400, FiO2 35%, and PEEP of 8. Blood gases show pO2 of 112, pCO2 37, and a pH 7.43. The FiO2 was turned down to 30%. Currently, she remains on Zyvox and meropenem. The patient's getting norepinephrine at 7 mcg/m, D5W at 50 mL an hour, and propofol has been of convalescent October 12. She's getting vital high protein at 5 mL an hour. Dietary yet to see her. White count 8.1, hemoglobin 6.6, hematocrit 19.9, and platelet count 14,000. PT 15.6 INR 1.6. Sodium 147, potassium 4, chlorides 112, CO2 26, BUN 62, and creatinine 2.56. AST is 165 ALT 36. Albumin is 2.2. Blood cultures are positive for Eubacterium, Escherichia coli, MRSA, and alpha-hemolytic streptococci. There were also positive for Clostridium perfringens. Chest x- ray shows an improving pattern, particularly to the left upper and right perihilar infiltrates. Progress note dated 10/16/2022. 42-year-old female seen again in room 254. She was admitted back on October 08 with mental status changes, aspiration pneumonia, alcoholic liver disease, alcohol withdrawal syndrome, and sepsis. The patient was intubated for respiratory failure on October 08. She remains on mechanical ventilator. She is on volume assist control, rate 18, tidal volume 400, FiO2 30%, PEEP of 8. Arterial blood gases show pO2 of 87, pCO2 39, and a pH is 7.40. Patient is on D5W at 50 mL an hour, norepinephrine at 2.4 mcg/m, saline at KVO, and Nepro at 30 mL an hour, which is goal. She's also getting free water flushes. Her antibiotics including Zyvox, and meropenem. White count 8.3, hemoglobin 7.4, hematocrit 21.6, and platelet count 21,000. Sodium 141, potassium 3.9, chlorides 107, CO2 24, BUN 71, creatinine 2.84. Blood cultures were reevaluated. She has multiple positive blood cultures. Chest x-ray from today is compared to x-rays done the day before, and are unchanged. The patient's EEG shows severe encephalopathy, with background slowing, but no focal slowing or seizure activity on the EEG. Objective - Vital Signs Vital signs: Vital Signs Temp 97.8 F 10/16/22 08:00 Pulse 98 10/16/22 10:00 Resp 20 10/16/22 10:00 BP 117/55 10/16/22 00:00 Pulse Ox 93 L 10/16/22 10:00 FiO2 30 10/16/22 08:00 Intake & Output 10/15/22 10/16/22 10/16/22 18:59 06:59 18:59 Intake Total 2423.921 9391.181 697.628 Output Total 115 230 30 Balance 9969.802 0309.181 667.628 Weight 78.8 kg 81.1 kg Intake: IV 890.8 986 609 Dextrose 5% in Water 1, 300 550 150 000 ml @ 50 mls/hr IV . Q20H [facility] Rx#:[id number] Linezolid 600 mg In 100 300 300 Dextrose/Water 1 300ml. bag @ 150 mls/hr IVPB Q12HR [facility] Rx#:[id number] Magnesium Sulfate-D5w Pmx 200 1 gm In Dextrose/Water 1 100ml.bag @ 100 mls/hr IVPB Q1H [facility] Rx#: [id number] Meropenem 1 gm In Sodium 199.8 100 100 Chloride 0.9% 100 ml @ 33 .3 mls/hr IVPB Q8HR [facility] Rx#:[id number] Phytonadione 10 mg In 50 50 Sodium Chloride 0.9% 50 ml @ 100 mls/hr IVPB DAILY [facility] Rx#:[id number] Sodium Chloride 0.9% 1, 5 000 ml @ 75 mls/hr IV . [id number] [facility] Rx#:[id number] pressure bag 36 36 9 Intake, IV Titration 130.713 3.181 28.628 Amount Norepinephrine 4 mg In 130.713 3.181 28.628 Sodium Chloride 0.9% 250 ml @ 0.03 MCG/KG/MIN 8. 675 mls/hr IV .Q24H [facility] Rx#:[id number] Oral 5 Tube Feeding 120 360 60 Blood Product 268 310 Platelet Pheresis Pas 268 Psoralen Unit [id number] Rc Pheresis 2 As3 Unit 0 310 [id number] Other 30 Output: Urine 115 230 30 Other: Voiding Method Indwelling Catheter Indwelling Catheter Indwelling Catheter ABP, PAP, CO, CI - Last Documented Arterial Blood Pressure 116/49 - Exam No acute distress, sedated, with an orally placed endotracheal tube and NG tube. HEENT examination is grossly unremarkable. Sclerae icterus. Neck supple. Full range of motion. No adenopathy thyromegaly or neck vein distention. Cardiovascular examination reveals regular rhythm rate. S1-S2 normal. No S3 or S4. No discernible murmur noted. Heart sounds are distant. Heart rate 98 bpm. Lungs reveal scattered rhonchi throughout. No wheezes or crackles. Breath sounds equal bilaterally. Saturations are 93 %. Abdomen soft bowel sounds are heard. No masses or tenderness. Extremities are intact. No cyanosis clubbing or edema. Skin reveals jaundice. Neurologic examination cannot be adequately assessed at this time. - Labs CBC & Chem 7: 10/16/22 05:00 10/16/22 05:00 Labs: Abnormal Lab Results - Last 24 Hours (Table) 10/15/22 10/15/22 10/15/22 Range/Units 04:45 04:45 08:11 RBC (3.80-5.40) m/uL Hgb (11.4-16.0) gm/dL Hct (34.0-46.0) % MCV (80.0-100.0) fL MCH (25.0-35.0) pg RDW (11.5-15.5) % Plt Count (150-450) k/uL Macrocytosis ABG Total CO2 (19-24) mmol/L ABG O2 Saturation (94-97) % BUN (7-17) mg/dL Creatinine (0.52-1.04) mg/dL Glucose (74-99) mg/dL POC Glucose (mg/dL) (70-110) mg/dL Calcium (8.4-10.2) mg/dL Vitamin B12 1580.0 H (200.0-944.0) pg/mL Folate 3.10 L (4.40-31.00) ng/mL Crossmatch See Detail 10/15/22 10/15/22 10/16/22 Range/Units 11:10 18:34 00:38 RBC (3.80-5.40) m/uL Hgb (11.4-16.0) gm/dL Hct (34.0-46.0) % MCV (80.0-100.0) fL MCH (25.0-35.0) pg RDW (11.5-15.5) % Plt Count (150-450) k/uL Macrocytosis ABG Total CO2 (19-24) mmol/L ABG O2 Saturation (94-97) % BUN (7-17) mg/dL Creatinine (0.52-1.04) mg/dL Glucose (74-99) mg/dL POC Glucose (mg/dL) 140 H 114 H 125 H (70-110) mg/dL Calcium (8.4-10.2) mg/dL Vitamin B12 (200.0-944.0) pg/mL Folate (4.40-31.00) ng/mL Crossmatch 10/16/22 10/16/22 10/16/22 Range/Units 05:00 05:00 05:11 RBC 1.98 L (3.80-5.40) m/uL Hgb 7.4 L (11.4-16.0) gm/dL Hct 21.6 L (34.0-46.0) % MCV 109.2 H D (80.0-100.0) fL MCH 37.2 H (25.0-35.0) pg RDW 26.2 H (11.5-15.5) % Plt Count 21 L (150-450) k/uL Macrocytosis Marked A ABG Total CO2 (19-24) mmol/L ABG O2 Saturation (94-97) % BUN 71 H (7-17) mg/dL Creatinine 2.84 H (0.52-1.04) mg/dL Glucose 115 H (74-99) mg/dL POC Glucose (mg/dL) 125 H (70-110) mg/dL Calcium 7.7 L (8.4-10.2) mg/dL Vitamin B12 (200.0-944.0) pg/mL Folate (4.40-31.00) ng/mL Crossmatch 10/16/22 Range/Units 06:06 RBC (3.80-5.40) m/uL Hgb (11.4-16.0) gm/dL Hct (34.0-46.0) % MCV (80.0-100.0) fL MCH (25.0-35.0) pg RDW (11.5-15.5) % Plt Count (150-450) k/uL Macrocytosis ABG Total CO2 25 H (19-24) mmol/L ABG O2 Saturation 97.3 H (94-97) % BUN (7-17) mg/dL Creatinine (0.52-1.04) mg/dL Glucose (74-99) mg/dL POC Glucose (mg/dL) (70-110) mg/dL Calcium (8.4-10.2) mg/dL Vitamin B12 (200.0-944.0) pg/mL Folate (4.40-31.00) ng/mL Crossmatch Microbiology - Last 24 Hours (Table) 10/11/22 06:08 Blood Culture - Preliminary Blood No Growth after 120 hours 10/12/22 15:46 Blood Culture - Preliminary Blood No Growth after 72 hours Assessment and Plan Assessment: Acute hypoxemic respiratory failure secondary to sepsis/septic shock. S/P intubation and mechanical ventilation on October 08, 2022. Methicillin-resistant staph aureus pneumonia. Acute bacteremia secondary to Escherichia coli, Staphylococcus aureus, and streptococcus, alphahemolytic. Acute metabolic acidosis secondary to lactic acidemia. Acute alcohol withdrawal. History of polysubstance abuse. Hepatic encephalopathy. Alcoholic liver disease with thrombocytopenia. Chronic macrocytic anemia. Liver cirrhosis. Acute kidney injury secondary to ATN. Multi-organ system failure. Plan: Plan dated 10/15/2022. The patient will continue on ventilatory support. She is a DO NOT RESUSCITATE. Apparently her significant other is going to court, on Saturday, to get guardianship, and possibly make this patient a comfort care patient. This seemed to be appropriate. We will continue to follow make recommendations along the way. Labs, x-rays, medications are reviewed. The patient remains on meropenem and Zyvox. Prognosis is very poor. Plan dated 10/16/2022. The patient remains on the mechanical ventilator. She's been off sedation since October 12. She is not particularly responsive. EEG shows diffuse slowing, consistent with severe metabolic or toxic encephalopathy. The patient remains on norepinephrine at 2.4 mcg/m. She remains on Zyvox and meropenem. The patient overall prognosis is very poor. Her significant other is attempting to get guardianship, and would wish to proceed to comfort care. The hearing and the cord is tomorrow. We will continue to follow and make recommendations along the way. Time with Patient: Greater than 30
[2022-10-16] MEDS ORDERED: FUROSEMIDE 10 MG/ML 10 ML VIAL IV STA (11:11)
[2022-10-16 11:24] LABS: Glucose,Whole Blood 134 mg/dL (70-110)
--- NOTE | 2022-10-16 11:28 | P.PN ---
Subjective This is a 42-year-old female's seen consultation with acute kidney injury secondary to septic syndrome with multiple bacteria from her blood cultures including E. coli staph and strep. Source is possibly GI as well as pneumonia. She remains intubated currently on 30% FiO2, has been off of all inotropes. Patient has history of severe EtOH abuse. She is currently jaundiced with bilirubin of 10.4. Urine output at about 0-5 mL per hour. Family is considering comfort care measures Objective - Vital Signs Vital signs: Vital Signs Temp 97.8 F 10/16/22 08:00 Pulse 96 10/16/22 11:00 Resp 20 10/16/22 11:00 BP 117/55 10/16/22 00:00 Pulse Ox 94 L 10/16/22 11:00 FiO2 30 10/16/22 11:13 Intake & Output 10/15/22 10/16/22 10/16/22 18:59 06:59 18:59 Intake Total 5373.524 0048.181 803.628 Output Total 115 230 50 Balance 1498.407 8994.181 753.628 Weight 78.8 kg 81.1 kg Intake: IV 890.8 986 715 Dextrose 5% in Water 1, 300 550 250 000 ml @ 50 mls/hr IV . Q20H [facility] Rx#:[id number] Linezolid 600 mg In 100 300 300 Dextrose/Water 1 300ml. bag @ 150 mls/hr IVPB Q12HR [facility] Rx#:[id number] Magnesium Sulfate-D5w Pmx 200 1 gm In Dextrose/Water 1 100ml.bag @ 100 mls/hr IVPB Q1H [facility] Rx#: [id number] Meropenem 1 gm In Sodium 199.8 100 100 Chloride 0.9% 100 ml @ 33 .3 mls/hr IVPB Q8HR [facility] Rx#:[id number] Phytonadione 10 mg In 50 50 Sodium Chloride 0.9% 50 ml @ 100 mls/hr IVPB DAILY [facility] Rx#:[id number] Sodium Chloride 0.9% 1, 5 000 ml @ 75 mls/hr IV . [id number] [facility] Rx#:[id number] pressure bag 36 36 15 Intake, IV Titration 130.713 3.181 28.628 Amount Norepinephrine 4 mg In 130.713 3.181 28.628 Sodium Chloride 0.9% 250 ml @ 0.03 MCG/KG/MIN 8. 675 mls/hr IV .Q24H [facility] Rx#:[id number] Oral 5 Tube Feeding 120 360 60 Blood Product 268 310 Platelet Pheresis Pas 268 Psoralen Unit [id number] Rc Pheresis 2 As3 Unit 0 310 [id number] Other 30 Output: Urine 115 230 50 Other: Voiding Method Indwelling Catheter Indwelling Catheter Indwelling Catheter ABP, PAP, CO, CI - Last Documented Arterial Blood Pressure 120/50 - Exam Patient is intubated and sedated Examination of the heart S1 and S2 Examination lungs bilateral breath sounds are heard Abdomen is soft nontender Exertion lower extremity shows edema 2+ bilaterally - Labs CBC & Chem 7: 10/16/22 05:00 10/16/22 05:00 Labs: Abnormal Lab Results - Last 24 Hours (Table) 10/15/22 10/15/22 10/15/22 Range/Units 04:45 04:45 08:11 RBC (3.80-5.40) m/uL Hgb (11.4-16.0) gm/dL Hct (34.0-46.0) % MCV (80.0-100.0) fL MCH (25.0-35.0) pg RDW (11.5-15.5) % Plt Count (150-450) k/uL Macrocytosis ABG Total CO2 (19-24) mmol/L ABG O2 Saturation (94-97) % BUN (7-17) mg/dL Creatinine (0.52-1.04) mg/dL Glucose (74-99) mg/dL POC Glucose (mg/dL) (70-110) mg/dL Calcium (8.4-10.2) mg/dL Vitamin B12 1580.0 H (200.0-944.0) pg/mL Folate 3.10 L (4.40-31.00) ng/mL Crossmatch See Detail Blood [facility] Result See [facility] REF Reports A 10/15/22 10/16/22 10/16/22 Range/Units 18:34 00:38 05:00 RBC 1.98 L (3.80-5.40) m/uL Hgb 7.4 L (11.4-16.0) gm/dL Hct 21.6 L (34.0-46.0) % MCV 109.2 H D (80.0-100.0) fL MCH 37.2 H (25.0-35.0) pg RDW 26.2 H (11.5-15.5) % Plt Count 21 L (150-450) k/uL Macrocytosis Marked A ABG Total CO2 (19-24) mmol/L ABG O2 Saturation (94-97) % BUN (7-17) mg/dL Creatinine (0.52-1.04) mg/dL Glucose (74-99) mg/dL POC Glucose (mg/dL) 114 H 125 H (70-110) mg/dL Calcium (8.4-10.2) mg/dL Vitamin B12 (200.0-944.0) pg/mL Folate (4.40-31.00) ng/mL Crossmatch Blood Bank Comment Reference Lab Result 10/16/22 10/16/22 10/16/22 Range/Units 05:00 05:11 06:06 RBC (3.80-5.40) m/uL Hgb (11.4-16.0) gm/dL Hct (34.0-46.0) % MCV (80.0-100.0) fL MCH (25.0-35.0) pg RDW (11.5-15.5) % Plt Count (150-450) k/uL Macrocytosis ABG Total CO2 25 H (19-24) mmol/L ABG O2 Saturation 97.3 H (94-97) % BUN 71 H (7-17) mg/dL Creatinine 2.84 H (0.52-1.04) mg/dL Glucose 115 H (74-99) mg/dL POC Glucose (mg/dL) 125 H (70-110) mg/dL Calcium 7.7 L (8.4-10.2) mg/dL Vitamin B12 (200.0-944.0) pg/mL Folate (4.40-31.00) ng/mL Crossmatch Blood Bank Comment Reference Lab Result 10/16/22 Range/Units 11:23 RBC (3.80-5.40) m/uL Hgb (11.4-16.0) gm/dL Hct (34.0-46.0) % MCV (80.0-100.0) fL MCH (25.0-35.0) pg RDW (11.5-15.5) % Plt Count (150-450) k/uL Macrocytosis ABG Total CO2 (19-24) mmol/L ABG O2 Saturation (94-97) % BUN (7-17) mg/dL Creatinine (0.52-1.04) mg/dL Glucose (74-99) mg/dL POC Glucose (mg/dL) 134 H (70-110) mg/dL Calcium (8.4-10.2) mg/dL Vitamin B12 (200.0-944.0) pg/mL Folate (4.40-31.00) ng/mL Crossmatch Blood Bank Comment Reference Lab Result Microbiology - Last 24 Hours (Table) 10/11/22 06:08 Blood Culture - Preliminary Blood No Growth after 120 hours 10/12/22 15:46 Blood Culture - Preliminary Blood No Growth after 72 hours Assessment and Plan Assessment: 1. Acute kidney injury secondary to sepsis with E. coli, staph aureus and alpha hemolytic strep growing in the blood cultures dated 10/09/2022 subsequent blood cultures 10/11/2022 is negative . Slightly worsening creatinine and urine output remains minimal. Extremely high vancomycin levels are contributing to acute kidney injury, she is off of vancomycin 2. Mild degree of hypokalemia secondary to GI losses and metabolic alkalosis. 3. History of alcoholic liver disease, total bilirubin is going up to 9.2 > 0.6. LFTs are improving 4. Hepatic encephalopathy with elevated ammonia levels 5. Mild degree of respiratory and metabolic alkalosis 6. Anemia with hemoglobin at 6.6 today, receiving packed RBCs. She has vaginal bleeding 7. Severe thrombocytopenia worsening likely from alcoholism and sepsis 8. Hypernatremia associated with free water deficit, currently maintained on D5W Plan: Lasix 80 mg IV 1 Repeat labs in a.m. Awaiting final decision regarding CODE STATUS
--- NOTE | 2022-10-16 13:17 | P.PN ---
Subjective Progress Note Date: 10/16/22 The patient is seen at bedside and is accompanied by her aunt. She continues to be intubated on ventilator. She is not on IV sedation. Objective - Vital Signs Vital signs: Vital Signs Temp 97.6 F 10/16/22 12:00 Pulse 98 10/16/22 12:15 Resp 18 10/16/22 12:15 BP 115/63 10/16/22 12:00 Pulse Ox 94 L 10/16/22 12:15 FiO2 30 10/16/22 12:00 Intake & Output 10/15/22 10/16/22 10/16/22 18:59 06:59 18:59 Intake Total 8140.437 9688.181 856.628 Output Total 115 230 66 Balance 1193.865 3371.181 790.628 Weight 78.8 kg 81.1 kg Intake: IV 890.8 986 768 Dextrose 5% in Water 1, 300 550 300 000 ml @ 50 mls/hr IV . Q20H [facility] Rx#:[id number] Linezolid 600 mg In 100 300 300 Dextrose/Water 1 300ml. bag @ 150 mls/hr IVPB Q12HR [facility] Rx#:[id number] Magnesium Sulfate-D5w Pmx 200 1 gm In Dextrose/Water 1 100ml.bag @ 100 mls/hr IVPB Q1H [facility] Rx#: [id number] Meropenem 1 gm In Sodium 199.8 100 100 Chloride 0.9% 100 ml @ 33 .3 mls/hr IVPB Q8HR [facility] Rx#:[id number] Phytonadione 10 mg In 50 50 Sodium Chloride 0.9% 50 ml @ 100 mls/hr IVPB DAILY [facility] Rx#:[id number] Sodium Chloride 0.9% 1, 5 000 ml @ 75 mls/hr IV . [id number] [facility] Rx#:[id number] pressure bag 36 36 18 Intake, IV Titration 130.713 3.181 28.628 Amount Norepinephrine 4 mg In 130.713 3.181 28.628 Sodium Chloride 0.9% 250 ml @ 0.03 MCG/KG/MIN 8. 675 mls/hr IV .Q24H [facility] Rx#:[id number] Oral 5 Tube Feeding 120 360 60 Blood Product 268 310 Platelet Pheresis Pas 268 Psoralen Unit [id number] Rc Pheresis 2 As3 Unit 0 310 [id number] Other 30 Output: Urine 115 230 66 Other: Voiding Method Indwelling Catheter Indwelling Catheter Indwelling Catheter ABP, PAP, CO, CI - Last Documented Arterial Blood Pressure 120/50 - Exam LUNG: Intubated on ventilator. HENT: Sclera icterus. INTEGUMENTARY: Looks jaundice NEURO: Limited because of her condition. Higher mental function: The patient is stupor. No verbally responsive or following commands. Cranial Nerves: I had to manually open her eyes and primary gaze is midline. Pupils are round, equal and reactive to light. No facial weakness. Is breathing over the vent. Motor: Strength is unable to assess because of her condition. No spontaneous movement. But to painful stimuli on bilateral upper extremities grimaces face. SOME OF THE WORK-UP DURING THIS HOSPITAL VISIT CONSISTED OF: Most recent Hemoglobin is 6.6 Ammonia is 16 AST 165 and ALT 36 TSH 0.436, free T4 1.32 Magnesium 1.5 Creatnine most recent 2.56 CT head showed no mass effect, no acute process. Interval development of fluid in the mastoid air cells and middle ear cavities. Routine EEG is abnormal. The background slowing suggestive of severe encephalopathy likely due to toxic metabolic abnormality. Otherwise there is no focal slowing, epileptiform discharges or seizure on the EEG. - Labs CBC & Chem 7: 10/16/22 05:00 10/16/22 05:00 Labs: Abnormal Lab Results - Last 24 Hours (Table) 10/15/22 10/15/22 10/15/22 Range/Units 04:45 04:45 08:11 RBC (3.80-5.40) m/uL Hgb (11.4-16.0) gm/dL Hct (34.0-46.0) % MCV (80.0-100.0) fL MCH (25.0-35.0) pg RDW (11.5-15.5) % Plt Count (150-450) k/uL Macrocytosis ABG Total CO2 (19-24) mmol/L ABG O2 Saturation (94-97) % BUN (7-17) mg/dL Creatinine (0.52-1.04) mg/dL Glucose (74-99) mg/dL POC Glucose (mg/dL) (70-110) mg/dL Calcium (8.4-10.2) mg/dL Vitamin B12 1580.0 H (200.0-944.0) pg/mL Folate 3.10 L (4.40-31.00) ng/mL Crossmatch See Detail Blood Bank Comment Sent to ReferenceLab A Reference Lab Result See BBK REF Reports A 10/15/22 10/16/22 10/16/22 Range/Units 18:34 00:38 05:00 RBC 1.98 L (3.80-5.40) m/uL Hgb 7.4 L (11.4-16.0) gm/dL Hct 21.6 L (34.0-46.0) % MCV 109.2 H D (80.0-100.0) fL MCH 37.2 H (25.0-35.0) pg RDW 26.2 H (11.5-15.5) % Plt Count 21 L (150-450) k/uL Macrocytosis Marked A ABG Total CO2 (19-24) mmol/L ABG O2 Saturation (94-97) % BUN (7-17) mg/dL Creatinine (0.52-1.04) mg/dL Glucose (74-99) mg/dL POC Glucose (mg/dL) 114 H 125 H (70-110) mg/dL Calcium (8.4-10.2) mg/dL Vitamin B12 (200.0-944.0) pg/mL Folate (4.40-31.00) ng/mL Crossmatch Blood Bank Comment Reference Lab Result 10/16/22 10/16/22 10/16/22 Range/Units 05:00 05:11 06:06 RBC (3.80-5.40) m/uL Hgb (11.4-16.0) gm/dL Hct (34.0-46.0) % MCV (80.0-100.0) fL MCH (25.0-35.0) pg RDW (11.5-15.5) % Plt Count (150-450) k/uL Macrocytosis ABG Total CO2 25 H (19-24) mmol/L ABG O2 Saturation 97.3 H (94-97) % BUN 71 H (7-17) mg/dL Creatinine 2.84 H (0.52-1.04) mg/dL Glucose 115 H (74-99) mg/dL POC Glucose (mg/dL) 125 H (70-110) mg/dL Calcium 7.7 L (8.4-10.2) mg/dL Vitamin B12 (200.0-944.0) pg/mL Folate (4.40-31.00) ng/mL Crossmatch Blood Bank Comment Reference Lab Result 10/16/22 Range/Units 11:23 RBC (3.80-5.40) m/uL Hgb (11.4-16.0) gm/dL Hct (34.0-46.0) % MCV (80.0-100.0) fL MCH (25.0-35.0) pg RDW (11.5-15.5) % Plt Count (150-450) k/uL Macrocytosis ABG Total CO2 (19-24) mmol/L ABG O2 Saturation (94-97) % BUN (7-17) mg/dL Creatinine (0.52-1.04) mg/dL Glucose (74-99) mg/dL POC Glucose (mg/dL) 134 H (70-110) mg/dL Calcium (8.4-10.2) mg/dL Vitamin B12 (200.0-944.0) pg/mL Folate (4.40-31.00) ng/mL Crossmatch Blood Bank Comment Reference Lab Result Microbiology - Last 24 Hours (Table) 10/11/22 06:08 Blood Culture - Preliminary Blood No Growth after 120 hours 10/12/22 15:46 Blood Culture - Preliminary Blood No Growth after 72 hours Assessment and Plan Assessment: * Altered mental status, likely due to hepatic encephalopathy, probable superimposed toxic metabolic encephalopathy. * Acute renal failure--worsening * Hyponatremia * Hypomagnesemia * Anemia, * Thrombocytopenia, severe * Hypothyroidism * Macrocytosis, likely multifactorial due to below * Chronic alcoholism * History of B12 deficiency * Folate deficiency (has history and still ongoing) Plan: * EEG: severe encephalopathy likely due to toxic-metabolic abnormality. Otherwise no seizure, epileptiform discharge or focal slowing. * Is on thiamine 100mg daily. * Vitamin B12 level: 1580 and serum folate: 3.10 (deficient). I resumed Vitamin B12 1000mcg daily and folic acid 1mg daily. * Medical management as per IM and other specialties. Will continue to follow. Plan is discussed with patient's aunt who is at bedside. Time with Patient: Less than 30
[2022-10-16 17:35] LABS: Glucose,Whole Blood 121 mg/dL (70-110)
--- NOTE | 2022-10-16 18:44 | P.PN ---
Subjective Progress Note Date: 10/16/22 Principal diagnosis: Sepsis and bacteremia Patient is a 42-year-old female with a past medical history significant for GERD reflux diabetic steatosis alcohol abuse presenting to the ER for evaluation of mental status changes , patient was noticed to be hypotensive afebrile and evidence of sepsis requiring intubation and admission to the ICU. On today's evaluation had that is 10/16/2022, the patient continues to be afebrile, the patient remains to be unresponsive intubated on the vent, the patient FiO2 is down to 30% and no significant purulent secretion through the ET and no diarrhea has reported by the nursing staff Objective - Vital Signs Vital signs: Vital Signs Temp 97.6 F 10/16/22 12:00 Pulse 98 10/16/22 12:15 Resp 18 10/16/22 12:15 BP 115/63 10/16/22 12:00 Pulse Ox 94 L 10/16/22 12:15 FiO2 30 10/16/22 12:00 Intake & Output 10/15/22 10/16/22 10/16/22 18:59 06:59 18:59 Intake Total 8914.922 5693.181 856.628 Output Total 115 230 66 Balance 9218.384 1140.181 790.628 Weight 78.8 kg 81.1 kg Intake: IV 890.8 986 768 Dextrose 5% in Water 1, 300 550 300 000 ml @ 50 mls/hr IV . Q20H [facility] Rx#:[id number] Linezolid 600 mg In 100 300 300 Dextrose/Water 1 300ml. bag @ 150 mls/hr IVPB Q12HR [facility] Rx#:[id number] Magnesium Sulfate-D5w Pmx 200 1 gm In Dextrose/Water 1 100ml.bag @ 100 mls/hr IVPB Q1H [facility] Rx#: [id number] Meropenem 1 gm In Sodium 199.8 100 100 Chloride 0.9% 100 ml @ 33 .3 mls/hr IVPB Q8HR [facility] Rx#:[id number] Phytonadione 10 mg In 50 50 Sodium Chloride 0.9% 50 ml @ 100 mls/hr IVPB DAILY [facility] Rx#:[id number] Sodium Chloride 0.9% 1, 5 000 ml @ 75 mls/hr IV . [id number] [facility] Rx#:[id number] pressure bag 36 36 18 Intake, IV Titration 130.713 3.181 28.628 Amount Norepinephrine 4 mg In 130.713 3.181 28.628 Sodium Chloride 0.9% 250 ml @ 0.03 MCG/KG/MIN 8. 675 mls/hr IV .Q24H [facility] Rx#:[id number] Oral 5 Tube Feeding 120 360 60 Blood Product 268 310 Platelet Pheresis Pas 268 Psoralen Unit [id number] Rc Pheresis 2 As3 Unit 0 310 [id number] Other 30 Output: Urine 115 230 66 Other: Voiding Method Indwelling Catheter Indwelling Catheter Indwelling Catheter ABP, PAP, CO, CI - Last Documented Arterial Blood Pressure 120/50 - Exam GENERAL DESCRIPTION: A middle-aged female intubated on the vent RESPIRATORY SYSTEM: Unlabored breathing , decreased breath sounds at bases HEART: S1 S2 regular rate and rhythm , ABDOMEN: Soft , mild distention EXTREMITIES: No edema feet - Labs CBC & Chem 7: 10/16/22 05:00 10/16/22 05:00 Labs: Abnormal Lab Results - Last 24 Hours (Table) 10/15/22 10/15/22 10/15/22 Range/Units 04:45 04:45 08:11 RBC (3.80-5.40) m/uL Hgb (11.4-16.0) gm/dL Hct (34.0-46.0) % MCV (80.0-100.0) fL MCH (25.0-35.0) pg RDW (11.5-15.5) % Plt Count (150-450) k/uL Macrocytosis ABG Total CO2 (19-24) mmol/L ABG O2 Saturation (94-97) % BUN (7-17) mg/dL Creatinine (0.52-1.04) mg/dL Glucose (74-99) mg/dL POC Glucose (mg/dL) (70-110) mg/dL Calcium (8.4-10.2) mg/dL Vitamin B12 1580.0 H (200.0-944.0) pg/mL Folate 3.10 L (4.40-31.00) ng/mL Crossmatch See Detail Blood Bank Comment Sent to Reference[facility] A Reference Lab Result See BBK REF Reports A 10/15/22 10/16/2210/16/23 Range/Units 18:34 00:38 05:00 RBC 1.98 L (3.80-5.40) m/uL Hgb 7.4 L (11.4-16.0) gm/dL Hct 21.6 L (34.0-46.0) % MCV 109.2 H D (80.0-100.0) fL MCH 37.2 H (25.0-35.0) pg RDW 26.2 H (11.5-15.5) % Plt Count 21 L (150-450) k/uL Macrocytosis Marked A ABG Total CO2 (19-24) mmol/L ABG O2 Saturation (94-97) % BUN (7-17) mg/dL Creatinine (0.52-1.04) mg/dL Glucose (74-99) mg/dL POC Glucose (mg/dL) 114 H 125 H (70-110) mg/dL Calcium (8.4-10.2) mg/dL Vitamin B12 (200.0-944.0) pg/mL Folate (4.40-31.00) ng/mL Crossmatch Blood Bank Comment Reference Lab Result 10/16/22 10/16/22 10/16/22 Range/Units 05:00 05:11 06:06 RBC (3.80-5.40) m/uL Hgb (11.4-16.0) gm/dL Hct (34.0-46.0) % MCV (80.0-100.0) fL MCH (25.0-35.0) pg RDW (11.5-15.5) % Plt Count (150-450) k/uL Macrocytosis ABG Total CO2 25 H (19-24) mmol/L ABG O2 Saturation 97.3 H (94-97) % BUN 71 H (7-17) mg/dL Creatinine 2.84 H (0.52-1.04) mg/dL Glucose 115 H (74-99) mg/dL POC Glucose (mg/dL) 125 H (70-110) mg/dL Calcium 7.7 L (8.4-10.2) mg/dL Vitamin B12 (200.0-944.0) pg/mL Folate (4.40-31.00) ng/mL Crossmatch Blood Bank Comment Reference Lab Result 10/16/22 Range/Units 11:23 RBC (3.80-5.40) m/uL Hgb (11.4-16.0) gm/dL Hct (34.0-46.0) % MCV (80.0-100.0) fL MCH (25.0-35.0) pg RDW (11.5-15.5) % Plt Count (150-450) k/uL Macrocytosis ABG Total CO2 (19-24) mmol/L ABG O2 Saturation (94-97) % BUN (7-17) mg/dL Creatinine (0.52-1.04) mg/dL Glucose (74-99) mg/dL POC Glucose (mg/dL) 134 H (70-110) mg/dL Calcium (8.4-10.2) mg/dL Vitamin B12 (200.0-944.0) pg/mL Folate (4.40-31.00) ng/mL Crossmatch Blood Bank Comment Reference Lab Result Microbiology - Last 24 Hours (Table) 10/11/22 06:08 Blood Culture - Preliminary Blood No Growth after 120 hours 10/12/22 15:46 Blood Culture - Preliminary Blood No Growth after 72 hours Assessment and Plan (1) Sepsis Current Visit: Yes Status: Acute Code(s): A41.9 - SEPSIS, UNSPECIFIED ORGANISM SNOMED Code(s): 18907651 Plan: 1patient was in the hospital with sepsis/septic shock in this patient who did have a fever hypotension elevated lactic acid source could be abdominal , did have elevated liver enzyme however ultrasound of the abdomen did not show any evidence of cholecystitis, patient did have component of pneumonia 2-patient with cephalexin allergy that would limit the number of antibiotics sa fe to use, per discussion with the pharmacist not able to use Unasyn or Zosyn 3-the patient did have MRSA pneumonia and did have worsening of the kidney function and high vancomycin trough patient currently being treated with Zyvox which will be continued 4patient also have some E. coli bacteremia and also growing Clostridium perfringens likely abdominal source , patient to continue with the meropenem 5patient remains to be afebrile patient white count has normalized. Repeat Blood culture negative, patient to continue meropenem and Zyvox pending decision regarding further care Aunt at the bedside. Multiple questions were answered Time with Patient: Less than 30
[2022-10-16 23:21] LABS: Glucose,Whole Blood 147 mg/dL (70-110)
[2022-10-17] MEDS: IPRATROPIUM-ALBUTEROL 3 ML NEB INHALATION SCH ×5 (03:12→20:03)
--- NOTE | 2022-10-17 04:21 | P.PN ---
Subjective Progress Note Date: 10/16/22 This is a 42-year-old female who was recently admitted with bilateral pneumonia, sepsis, alcohol intoxication withdrawal and remains on mechanical ventilation ICU with multiple medical consultations following. Significant other currently working on obtaining guardianship to make decisions and patient is no code currently. Apparently has a guardianship hearing on Saturday and will follow- up after that. Patient currently is afebrile and remains tachycardic and continues on mechanical ventilation with an FiO2 of 30% with a PEEP of 8. Patient is continued on IV antibiotics in the form of meropenem and linezolid and is requiring small dose Levophed and is currently not on any type of sedation and remains unresponsive. Neurology following an EEG is ordered today. Review of systems: Unable to obtain as patient is on mechanical vent and unresponsive 10/16/2022 Patient is seen and evaluated in follow-up maintained in the ICU currently off sedation and continues on mechanical vent with an FiO2 of 30% and PEEP is 5. Per social work who is following, significant other working on guardianship court hearing on Saturday to be able to make the decisions and will continue current treatment plan discussion of possible comfort measures once there is guardianship. Hemoglobin is 7.4 today and there is some vaginal bleeding noted per nursing staff. Repeat labs ordered and pending. Patient's kidney functions worsening and nephrology is following. Patient also continues on antibiotics with infectious disease following and will continue for now. Overall prognosis is poor and guarded. Review of systems: Unable to obtain as patient is on mechanical vent Active Medications Albuterol/Ipratropium (Ipratropium-Albuterol 3 Ml Neb) 3 ml INHALATION RT-Q4H [facility] Last Admin: 10/16/22 11:54 Dose: 3 ml Chlorhexidine Gluconate (Chlorhexidine Gluconate 15 Ml Cup) 15 ml MUCOUS MEM BID [facility] Last Admin: 10/16/22 08:30 Dose: 15 ml Cyanocobalamin (Cyanocobalamin 500 Mcg Tab) 1,000 mcg PO DAILY [facility] Last Admin: 10/16/22 08:31 Dose: 1,000 mcg Dextrose/Water (Dextrose 50% Syringe 50 Ml) 25 ml IVP PER PROTOCOL PRN; Protocol PRN Reason: Hypoglycemia Last Admin: 10/13/22 07:49 Dose: 25 ml Dextrose/Water (Dextrose 50% Syringe 50 Ml) 50 ml IVP PER PROTOCOL PRN; Protocol PRN Reason: Hypoglycemia Folic Acid (Folic Acid 1 Mg Tab) 1 mg PO DAILY [facility] Last Admin: 10/16/22 08:31 Dose: 1 mg Linezolid 600 mg/ IV Solution 300 mls @ 150 mls/hr IVPB Q12HR [facility]; Protocol Last Admin: 10/16/22 08:31 Dose: 150 mls/hr Dextrose/Water (Dextrose 5%-Water Iv Soln) 1,000 mls @ 50 mls/hr IV .Q20H [facility] Last Admin: 10/16/22 06:46 Dose: 50 mls/hr Phytonadione 10 mg/ Sodium (Chloride) 51 mls @ 100 mls/hr IVPB DAILY [facility] Last Admin: 10/16/22 08:31 Dose: 100 mls/hr Meropenem 1 gm/ Sodium (Chloride) 100 mls @ 33.3 mls/hr IVPB Q8HR [facility]; Protocol Last Admin: 10/16/22 08:29 Dose: 33.3 mls/hr Norepinephrine Bitartrate 4 mg (/ Sodium Chloride) 254 mls @ 8.675 mls/hr IV .Q24H [facility]; Protocol Last Titration: 10/16/22 14:15 Dose: 0.01 mcg/kg/min, 2.892 mls/hr Insulin Aspart (Insulin Aspart (Novolog) 100 Unit/Ml Vial) 0 unit SQ Q6H [facility]; Protocol Last Admin: 10/16/22 11:26 Dose: Not Given Miscellaneous Information (Potassium Replacement Protocol 1 Each Misc) 1 each MISCELLANE DAILY PRN; Protocol PRN Reason: Per Protocol Naloxone HCl (Naloxone 0.4 Mg/Ml 1 Ml Vial) 0.2 mg IV Q2M PRN PRN Reason: Opioid Reversal Pantoprazole Sodium (Pantoprazole 40 Mg/10 Ml Vial) 40 mg IV BID [facility] Last Admin: 10/16/22 08:31 Dose: 40 mg Rifaximin (Rifaximin 550 Mg Tablet) 550 mg PO BID [facility]; Protocol Stop: 11/08/22 09:01 Last Admin: 10/16/22 08:31 Dose: 550 mg Thiamine HCl (Thiamine 100 Mg Tab) 100 mg PO DAILY [facility] Last Admin: 10/16/22 08:31 Dose: 100 mg PHYSICAL EXAMINATION: GENERAL: The patient is alert and oriented x0, currently on mechanical vent and unresponsive ill-appearing HEENT: Pupils are round and equally reacting to light. EOMI. no scleral icterus. No conjunctival pallor. Normocephalic, atraumatic. No pharyngeal erythema. No thyromegaly. CARDIOVASCULAR: S1 and S2 muffled , tachycardia PULMONARY: diminished breath sounds bilaterally with coarse scattered rhonchi and crackles noted. ABDOMEN: soft. Nontender on exam. -distended, normoactive bowel sounds. No palpable organomegaly. MUSCULOSKELETAL: No joint swelling or deformity. EXTREMITIES: No cyanosis, clubbing, generalized edema noted throughout NEUROLOGICAL: Unable to completely assess as patient is unresponsive and on mechanical ventilation SKIN: No rashes. Jaundice Assessment: Bilateral pneumonia with possible aspiration, with sepsis, present on admission Acute hypoxic respiratory failure secondary to above requiring mechanical ventilation Anemia, thrombocytopenia secondary to alcoholic liver disease alcohol withdrawal syndrome and delirium tremens sinus tachycardia Acute renal failure Cirrhosis of the liver Possible vaginal bleeding Alcoholic hepatitis with chronic liver disease and ascites, cirrhosis of the liver GI prophylaxis DVT prophylaxis No code Plan: Recommend to continue with current medications and management and being followed in the ICU as patient remains on mechanical ventilation. Patient is off all sedation with neurology following as wellas multiple other consultations including infectious disease. Most recent blood cultures are negative patient is maintained on IV antibiotics Patient does not have any immediate family to make decisions and does have a significant other although they are not and he is currently working on obtaining guardianship through the court to make decisions as patient has been made no code with possible comfort measures once he obtains guardianship. During For Saturday. Patient is has been off all sedation and remains unresponsive will continue current supportive measures until follow-up with significant other Due to multiple complex medical issues, prognosis is extremely guarded and poor as well. The impression and plan of care has been dictated by Cee Owens, nurse practitioner as directed. Dr. Bebe MD I have performed a history and examination and MDM of this patient, discussed the same with the dictator, and agree with the dictator's assessment and plan as written ,documented as a scribe. Based on total visit time, I have performed more than 50% of the visit. Any additional findings or plans will be noted. Objective - Vital Signs Vital signs: Vital Signs Temp 97.6 F 10/16/22 12:00 Pulse 98 04/11/23 12:15 Resp 18 10/16/22 12:15 BP 115/63 10/16/22 12:00 Pulse Ox 94 L 10/16/22 12:15 FiO2 30 10/16/22 12:00 Intake & Output 10/15/22 10/16/22 10/16/22 18:59 06:59 18:59 Intake Total 6077.756 8906.181 856.628 Output Total 115 230 66 Balance 2836.108 1227.181 790.628 Weight 78.8 kg 81.1 kg Intake: IV 890.8 986 768 Dextrose 5% in Water 1, 300 550 300 000 ml @ 50 mls/hr IV . Q20H [facility] Rx#:[id number] Linezolid 600 mg In 100 300 300 Dextrose/Water 1 300ml. bag @ 150 mls/hr IVPB Q12HR [facility] Rx#:[id number] Magnesium Sulfate-D5w Pmx 200 1 gm In Dextrose/Water 1 100ml.bag @ 100 mls/hr IVPB Q1H [facility] Rx#: [id number] Meropenem 1 gm In Sodium 199.8 100 100 Chloride 0.9% 100 ml @ 33 .3 mls/hr IVPB Q8HR [facility] Rx#:[id number] Phytonadione 10 mg In 50 50 Sodium Chloride 0.9% 50 ml @ 100 mls/hr IVPB DAILY [facility] Rx#:[id number] Sodium Chloride 0.9% 1, 5 000 ml @ 75 mls/hr IV . [id number] [facility] Rx#:[id number] pressure bag 36 36 18 Intake, IV Titration 130.713 3.181 28.628 Amount Norepinephrine 4 mg In 130.713 3.181 28.628 Sodium Chloride 0.9% 250 ml @ 0.03 MCG/KG/MIN 8. 675 mls/hr IV .Q24H [facility] Rx#:[id number] Oral 5 Tube Feeding 120 360 60 Blood Product 268 310 Platelet Pheresis Pas 268 Psoralen Unit [id number] Rc Pheresis 2 As3 Unit 0 310 [id number] Other 30 Output: Urine 115 230 66 Other: Voiding Method Indwelling Catheter Indwelling Catheter Indwelling Catheter ABP, PAP, CO, CI - Last Documented Arterial Blood Pressure 120/50 - Labs CBC & Chem 7: 10/16/22 05:00 10/16/22 05:00 Labs: Abnormal Lab Results - Last 24 Hours (Table) 10/15/22 10/15/22 10/15/22 Range/Units 04:45 04:45 08:11 RBC (3.80-5.40) m/uL Hgb (11.4-16.0) gm/dL Hct (34.0-46.0) % MCV (80.0-100.0) fL MCH (25.0-35.0) pg RDW (11.5-15.5) % Plt Count (150-450) k/uL Macrocytosis ABG Total CO2 (19-24) mmol/L ABG O2 Saturation (94-97) % BUN (7-17) mg/dL Creatinine (0.52-1.04) mg/dL Glucose (74-99) mg/dL POC Glucose (mg/dL) (70-110) mg/dL Calcium (8.4-10.2) mg/dL Vitamin B12 1580.0 H (200.0-944.0) pg/mL Folate 3.10 L (4.40-31.00) ng/mL Crossmatch See Detail Blood Bank Comment Sent to Reference[facility] A Reference Lab Result See BBK REF Reports A 10/15/22 10/16/22 10/16/22 Range/Units 18:34 00:38 05:00 RBC 1.98 L (3.80-5.40) m/uL Hgb 7.4 L (11.4-16.0) gm/dL Hct 21.6 L (34.0-46.0) % MCV 109.2 H D (80.0-100.0) fL MCH 37.2 H (25.0-35.0) pg RDW 26.2 H (11.5-15.5) % Plt Count 21 L (150-450) k/uL Macrocytosis Marked A ABG Total CO2 (19-24) mmol/L ABG O2 Saturation (94-97) % BUN (7-17) mg/dL Creatinine (0.52-1.04) mg/dL Glucose (74-99) mg/dL POC Glucose (mg/dL) 114 H 125 H (70-110) mg/dL Calcium (8.4-10.2) mg/dL Vitamin B12 (200.0-944.0) pg/mL Folate (4.40-31.00) ng/mL Crossmatch Blood Bank Comment Reference Lab Result 10/16/22 10/16/22 10/16/22 Range/Units 05:00 05:11 06:06 RBC (3.80-5.40) m/uL Hgb (11.4-16.0) gm/dL Hct (34.0-46.0) % MCV (80.0-100.0) fL MCH (25.0-35.0) pg RDW (11.5-15.5) % Plt Count (150-450) k/uL Macrocytosis ABG Total CO2 25 H (19-24) mmol/L ABG O2 Saturation 97.3 H (94-97) % BUN 71 H (7-17) mg/dL Creatinine 2.84 H (0.52-1.04) mg/dL Glucose 115 H (74-99) mg/dL POC Glucose (mg/dL) 125 H (70-110) mg/dL Calcium 7.7 L (8.4-10.2) mg/dL Vitamin B12 (200.0-944.0) pg/mL Folate (4.40-31.00) ng/mL Crossmatch Blood Bank Comment Reference Lab Result 10/16/22 Range/Units 11:23 RBC (3.80-5.40) m/uL Hgb (11.4-16.0) gm/dL Hct (34.0-46.0) % MCV (80.0-100.0) fL MCH (25.0-35.0) pg RDW (11.5-15.5) % Plt Count (150-450) k/uL Macrocytosis ABG Total CO2 (19-24) mmol/L ABG O2 Saturation (94-97) % BUN (7-17) mg/dL Creatinine (0.52-1.04) mg/dL Glucose (74-99) mg/dL POC Glucose (mg/dL) 134 H (70-110) mg/dL Calcium (8.4-10.2) mg/dL Vitamin B12 (200.0-944.0) pg/mL Folate (4.40-31.00) ng/mL Crossmatch Blood Bank Comment Reference Lab Result Microbiology - Last 24 Hours (Table) 10/11/22 06:08 Blood Culture - Preliminary Blood No Growth after 120 hours 10/12/22 15:46 Blood Culture - Preliminary Blood No Growth after 72 hours
[2022-10-17] MEDS: INSULIN ASPART (NovoLOG) 100 UNIT/ML VIAL SQ SCH ×3 (05:40→18:05)
[2022-10-17 05:47] LABS: Glucose,Whole Blood 127 mg/dL (70-110)
[2022-10-17 05:50] LABS: Anisocytosis Marked; Basophils # (A) 0.1 k/uL (0-0.2); Basophils % (A) 1 %; Eosinophils # (A) 0.2 k/uL (0-0.7); Eosinophils % (A) 2 %; HCT 21.9 % (34.0-46.0); HGB 7.5 gm/dL (11.4-16.0); Lymphocytes # (A) 1.3 k/uL (1.0-4.8); Lymphocytes % (A) 13 %; MCH 37.8 pg (25.0-35.0); MCHC 34.2 g/dL (31.0-37.0); MCV 110.5 fL (80.0-100.0); Mean Platelet Volume 11.8; Monocytes # (A) 0.6 k/uL (0-1.0); Monocytes % (A) 6 %; Neutrophils # (A) 7.6 k/uL (1.3-7.7); Neutrophils % (A) 76 %; Poikilocytosis Slight; RBC 1.98 m/uL (3.80-5.40)
[2022-10-17 05:53] LABS: ABG Base Excess -1.8 mmol/L; ABG HCO3 23 mmol/L (21-25); ABG Oxygen Saturation 97.9 % (94-97); ABG PCO2 38 mmHg (35-45); ABG PH 7.39 (7.35-7.45); ABG PO2 93 mmHg (83-108); ABG TCO2 24 mmol/L (19-24)
[2022-10-17 05:59] LABS: Calcium 8.3 mg/dL (8.4-10.2); Potassium 3.8 mmol/L (3.5-5.1)
[2022-10-17 07:16] LABS: Platelet Count 24 k/uL (150-450); RDW 25.4 % (11.5-15.5)
[2022-10-17 07:17] LABS: Macrocytosis Marked
--- NOTE | 2022-10-17 08:03 | XR ---
EXAMINATION TYPE: XR chest 1V portable DATE OF EXAM: 10/17/2022 5:55 AM COMPARISON: Chest radiographs from 10/16/2022 TECHNIQUE: XR chest 1V portable Frontal view of the chest. CLINICAL INDICATION:Female, 42 years old with history of mechanical ventilation; FINDINGS: Lungs/Pleura: Similar multifocal airspace opacities. No evidence of pneumothorax or pleural effusion. Pulmonary vascularity: Unremarkable. Heart/mediastinum: Cardiomediastinal silhouette is unremarkable. Musculoskeletal: No acute osseous pathology. Endotracheal tube with tip 2.2 Gates of the norberto. Nasogastric tube projecting off the inferior as pect of the radiograph. IMPRESSION: No significant change in multifocal airspace opacities predominantly in the right lung. Stable support tubes.
[2022-10-17] MEDS: CYANOCOBALAMIN 500 MCG TAB PO SCH (08:49)
[2022-10-17] MEDS: THIAMINE 100 MG TAB PO SCH (08:49)
[2022-10-17] MEDS: RIFAXIMIN 550 MG TABLET PO SCH ×2 (08:49→20:58)
[2022-10-17] MEDS: FOLIC ACID 1 MG TAB PO SCH (08:49)
[2022-10-17] MEDS: PANTOPRAZOLE 40 MG/10 ML VIAL IV SCH ×2 (08:49→20:58)
[2022-10-17] MEDS: CHLORHEXIDINE GLUCONATE 15 ML CUP MUCOUS MEM SCH ×2 (08:49→20:58)
[2022-10-17] MEDS: LINEZOLID 600 MG in DEXTROSE/WATER 1 300ML.BAG IVPB SCH ×2 (08:50→20:58)
[2022-10-17] MEDS: PHYTONADIONE 10 MG in SODIUM CHLORIDE 0.9% 50 ML IVPB SCH (09:56)
[2022-10-17] MEDS: MEROPENEM 1 GM in SODIUM CHLORIDE 0.9% 100 ML IVPB SCH ×2 (09:56→16:13)
--- NOTE | 2022-10-17 10:16 | P.PN ---
Subjective Progress Note Date: 10/17/22 Principal diagnosis: Respiratory failure. Reevaluated today on 10/11/2022, patient remains in the ICU, intubated and mechanically ventilated. She is now on assist control rate of 24th of volume 400 FiO2 50% PEEP of 8 and a increased the PEEP to 10. ABG showed a pO2 of 59 pCO2 40 pH of 7.33. Patient is receiving a unit of packed RBC this morning for hemoglobin of 6.8. Her renal functioning seems to be deteriorating and worsening creatinine is up to 2.01. Liver enzymes remain elevated. Ammonia level is pending. Nephrology was consulted for her acute kidney injury, diabetes concern is the patient developing acute hepatorenal syndrome. Urine output remains marginal, Lasix was ordered to be given 1. Her IV fluid is Down to KVO, remains on sodium bicarb drip. Patient remains on norepinephrine at 0.12 she is also on Versed 3 mg/h, and propofol at 75 mcg/kg/m. 0.9 normal saline at 75 mL/h this will be cut down to KVO, and Lasix will be given. Chest x-ray is showing worsening in her consolidation in the left lower lobe, and I suspect there may be a component of groundglass appearance suggestive of mild interstitial edema and fluid overload. WBC count is 3.9 hemoglobin 6.8. Electrolytes are abnormal with sodium 145 potassium 2.8 bicarb is 20 BUN is 49 and creatinine 2.0 1 repeat ammonia level today is 89, remains quite elevated, patient is on lactulose and she is also on rifaximin. Reevaluated today on 10/12/2022, patient remains in the ICU intubated and mechanically ventilated. She is on assist control rate of 24-400 FiO2 50% and PEEP of 10 ABG showed a pO2 of 53 pCO2 34 pH of 7.44, hence FiO2 was increased to 50%*of 40%. Chest x-ray is showing improvement in her bilateraldisease especially on the left side. Remains on propofol at 25 mg/kg/m norepinephrine at 0.04 mcg/kg/m vasopressin 0.03 units per minute and bicarb drip which I cut it down to 25 mL per hour. 50 mL per hour. Patient remains on lactulose and ammonia level is down to 46 today. She will be receiving a dose of Lasix 80 mg IV push. I will discontinue propofol since the patient may not require much sedation. Patient is definitely not ready for any form of weaning or extubation at this point. Her platelets were noted to be quite low today, and I'm recommending 2 units of platelets to be given. His sputum came back positive for MRSA, and she remains covered with vancomycin. WBC count today is 5.4 hemoglobin is 8.4. Her platelets are 19,000. Electrolytes are normal except for sodium 145 BUN of 38 creatinine 2.17. Urine output is marginal, and I have recommended another dose of Lasix 80 mg to be given today IV push. Patient was reevaluated today on 10/13/2022, remains in the ICU, intubated and mechanically ventilated, patient is off sedation for the last 24 hours, no purposeful responses, no responses to any deep painful stimuli, she is on assist control rate of 24 volume 400 FiO2 40% PEEP is cut down from 10-8. ABG showed a pO2 of 145 pCO2 32 pH of 7.50. Platelets are low again, 15,017 the patient 2 units of platelets to be given today. We have ordered the bicarb to be discontinued since the bicarb level is normal. No functioning remains borderline about the same compared to yesterday. Patient is again off sedation for the last 24 hours. Chest x-ray continues to show bilateral airspace disease consistent with pneumonia, WBC count is 6.0 hemoglobin is 8.6, basic metabolic profile showed sodium of 146 potassium 3.2 chloride 111 bicarb 25 BUN 46 creatinine 2.44 liver enzymes remain a bit elevated with a total bilirubin of 9.2. Reevaluated today on 10/25/19 patient is sitting in the ICU, intubated and mechanically ventilated. Her ventilator settings were adjusted today, she is now on assist control rate of 18, volume 400 FiO2 40% and PEEP of 8 and her ABG showed a pO2 of 144 pCO2 36 pH of 7.44 hence the patient had FiO2 cut down to 35%. Chest x-ray continues to show diffuse bilateral infiltrates, relatively unchanged. Labs were reviewed she has a sodium 149 potassium 3.2 chloride 114 bicarb is 24 BUN is 55 creatinine 2.40. WBC count is 5.6 hemoglobin 7.2 hematocrit 21.2 platelets are down to 11,000, and the patient is receiving 2 units of platelets today. Patient had an episode of vaginal bleeding yesterday, it was basically a large blood clot coming out of her vaginal area. Patient had a test that came back negative. Patient is getting worse, she developing worsening abdominal distention, worsening bipedal edema, anasarca, ascites, he is also developing worsening neurological status and I'm recommending a CT of the brain to be done today, and a neurological consultation. Antibiotics curran, the patient was seen by infectious disease, and she is now on Rocephin and she is on linezolid/Zyvox. Her IV fluid has been changed to D5W cerebellar are mostly because of her hypernatremia that was noted on the labs today. Patient remains on lactulose, ammonia level is pending today. She is also on rifaximin.. Patient remains off sedation completely. Progress note dated 10/15/2022. The patient is seen today in room 254. She was admitted back on October 08 with mental status changes, aspiration pneumonia, alcoholic liver disease, alcohol withdrawal syndrome, and sepsis. The patient was intubated on the same today, October 08. She remains on the mechanical ventilator, at volume assist control, rate 18, tidal volume 400, FiO2 35%, and PEEP of 8. Blood gases show pO2 of 112, pCO2 37, and a pH 7.43. The FiO2 was turned down to 30%. Currently, she remains on Zyvox and meropenem. The patient's getting norepinephrine at 7 mcg/m, D5W at 50 mL an hour, and propofol has been of convalescent October 12. She's getting vital high protein at 5 mL an hour. Dietary yet to see her. White count 8.1, hemoglobin 6.6, hematocrit 19.9, and platelet count 14,000. PT 15.6 INR 1.6. Sodium 147, potassium 4, chlorides 112, CO2 26, BUN 62, and creatinine 2.56. AST is 165 ALT 36. Albumin is 2.2. Blood cultures are positive for Eubacterium, Escherichia coli, MRSA, and alpha-hemolytic streptococci. There were also positive for Clostridium perfringens. Chest x- ray shows an improving pattern, particularly to the left upper and right perihilar infiltrates. Progress note dated 10/16/2022. 42-year-old female seen again in room 254. She was admitted back on October 08 with mental status changes, aspiration pneumonia, alcoholic liver disease, alcohol withdrawal syndrome, and sepsis. The patient was intubated for respiratory failure on October 08. She remains on mechanical ventilator. She is on volume assist control, rate 18, tidal volume 400, FiO2 30%, PEEP of 8. Arterial blood gases show pO2 of 87, pCO2 39, and a pH is 7.40. Patient is on D5W at 50 mL an hour, norepinephrine at 2.4 mcg/m, saline at KVO, and Nepro at 30 mL an hour, which is goal. She's also getting free water flushes. Her antibiotics including Zyvox, and meropenem. White count 8.3, hemoglobin 7.4, hematocrit 21.6, and platelet count 21,000. Sodium 141, potassium 3.9, chlorides 107, CO2 24, BUN 71, creatinine 2.84. Blood cultures were reevaluated. She has multiple positive blood cultures. Chest x-ray from today is compared to x-rays done the day before, and are unchanged. The patient's EEG shows severe encephalopathy, with background slowing, but no focal slowing or seizure activity on the EEG. Progress note dated 10/17/2022. 42-year-old female seen again in room 254. She was admitted on October 08 with mental status changes, aspiration pneumonia, alcoholic liver disease and liver f ailure, alcohol withdrawal syndrome, and sepsis. The patient was intubated for respiratory failure on the day of admission. She remains on mechanical ventilator. She is on volume assist control, rate 18, tidal volume 400, FiO2 30%, PEEP of 8. Blood gases show pO2 of 93, pCO2 38, and a pH is 7.39. The patient's getting D5W at 50 mL an hour, norepinephrine at about a micrograms per minute, and Nepro tube feeds, at 30 mL an hour, which is goal. White count is 10, hemoglobin 7.5, hematocrit 21.9, and platelet count 24,000. Sodium 137, potassium 3.8, chlorides 102, CO2 22, anion gap 13, BUN 76, creatinine 2.94. Calcium is 8.3. Blood cultures were positive for Escherichia coli, methicillin- resistant staph aureus, alphahemolytic streptococci, and Clostridium perfringens. In addition, blood cultures are positive for Eubacterium lentum. The patient remains on Zyvox and meropenem. The patient's significant other was going to get power of workers compensation attorney, and possibly move towards comfort measures. [facility] has been called. Chest x-ray today is largely unchanged. Objective - Vital Signs Vital signs: Vital Signs Temp 97.5 F L 10/17/22 08:00 Pulse 99 10/17/22 10:00 Resp 21 10/17/22 10:00 BP 110/55 10/17/22 04:30 Pulse Ox 92 L 10/17/22 10:00 FiO2 30 10/17/22 10:00 Intake & Output 10/16/22 10/17/22 10/17/22 18:59 06:59 18:59 Intake Total 8850.549 7507 729 Output Total 242 198 38 Balance 1167.199 828 691 Weight 83 kg Intake: IV 1133 636 609 Dextrose 5% in Water 1, 650 600 150 000 ml @ 50 mls/hr IV . Q20H [facility] Rx#:[id number] Linezolid 600 mg In 300 300 Dextrose/Water 1 300ml. bag @ 150 mls/hr IVPB Q12HR [facility] Rx#:[id number] Meropenem 1 gm In Sodium 100 100 Chloride 0.9% 100 ml @ 33 .3 mls/hr IVPB Q8HR [facility] Rx#:[id number] Phytonadione 10 mg In 50 50 Sodium Chloride 0.9% 50 ml @ 100 mls/hr IVPB DAILY [facility] Rx#:[id number] pressure bag 33 36 9 Intake, IV Titration 156.199 0 Amount Meropenem 1 gm In Sodium 100 Chloride 0.9% 100 ml @ 33 .3 mls/hr IVPB Q8HR [facility] Rx#:[id number] Norepinephrine 4 mg In 56.199 0 Sodium Chloride 0.9% 250 ml @ 0.03 MCG/KG/MIN 8. 675 mls/hr IV .Q24H [facility] Rx#:[id number] Tube Feeding 120 390 90 Other 30 Output: Urine 242 198 38 Other: Voiding Method Indwelling Catheter Indwelling Catheter ABP, PAP, CO, CI - Last Documented Arterial Blood Pressure 121/46 - Exam No acute distress, sedated, with an orally placed endotracheal tube and NG tube. HEENT examination is grossly unremarkable. Sclerae icterus. Neck supple. Full range of motion. No adenopathy thyromegaly or neck vein distention. Cardiovascular examination reveals regular rhythm rate. S1-S2 normal. No S3 or S4. No discernible murmur noted. Heart sounds are distant. Heart rate 100 bpm. Lungs reveal scattered rhonchi throughout. No wheezes or crackles. Breath sounds equal bilaterally. Saturations are 94 %. Abdomen soft bowel sounds are heard. No masses or tenderness. Extremities are intact. No cyanosis clubbing or edema. Skin reveals jaundice. Neurologic examination cannot be adequately assessed at this time. - Labs CBC & Chem 7: 10/17/22 05:13 10/17/22 05:13 Labs: Abnormal Lab Results - Last 24 Hours (Table) 10/15/22 10/16/22 10/16/22 Range/Units 08:11 11: 17:33 RBC (3.80-5.40) m/uL Hgb (11.4-16.0) gm/dL Hct (34.0-46.0) % MCV (80.0-100.0) fL MCH (25.0-35.0) pg RDW (11.5-15.5) % Plt Count (150-450) k/uL Macrocytosis ABG O2 Saturation (94-97) % BUN (7-17) mg/dL Creatinine (0.52-1.04) mg/dL Glucose (74-99) mg/dL POC Glucose (mg/dL) 134 H 121 H (70-110) mg/dL Calcium (8.4-10.2) mg/dL Blood Bank Comment Sent to [facility] A Reference Lab Result See [facility] REF Reports A 10/16/22 10/17/22 10/17/22 Range/Units 23:20 05:13 05:13 RBC 1.98 L (3.80-5.40) m/uL Hgb 7.5 L (11.4-16.0) gm/dL Hct 21.9 L (34.0-46.0) % MCV 110.5 H (80.0-100.0) fL MCH 37.8 H (25.0-35.0) pg RDW 25.4 H (11.5-15.5) % Plt Count 24 L (150-450) k/uL Macrocytosis Marked A ABG O2 Saturation (94-97) % BUN 76 H (7-17) mg/dL Creatinine 2.94 H (0.52-1.04) mg/dL Glucose 118 H (74-99) mg/dL POC Glucose (mg/dL) 147 H (70-110) mg/dL Calcium 8.3 L (8.4-10.2) mg/dL Blood Bank Comment Reference Lab Result 10/17/22 10/17/22 Range/Units 05:26 05:49 RBC (3.80-5.40) m/uL Hgb (11.4-16.0) gm/dL Hct (34.0-46.0) % MCV (80.0-100.0) fL MCH (25.0-35.0) pg RDW (11.5-15.5) % Plt Count (150-450) k/uL Macrocytosis ABG O2 Saturation 97.9 H (94-97) % BUN (7-17) mg/dL Creatinine (0.52-1.04) mg/dL Glucose (74-99) mg/dL POC Glucose (mg/dL) 127 H (70-110) mg/dL Calcium (8.4-10.2) mg/dL Blood Bank Comment Reference Lab Result Microbiology - Last 24 Hours (Table) 10/11/22 06:08 Blood Culture - Final Blood No Growth after 144 hours 10/12/22 15:46 Blood Culture - Preliminary Blood No Growth after 96 hours Assessment and Plan Assessment: Acute hypoxemic respiratory failure secondary to sepsis/septic shock. S/P intubation and mechanical ventilation on October 08, 2022. Methicillin-resistant staph aureus pneumonia. Acute bacteremia secondary to Escherichia coli, Staphylococcus aureus, and streptococcus, alphahemolytic. Acute metabolic acidosis secondary to lactic acidemia. Acute alcohol withdrawal. History of polysubstance abuse. Hepatic encephalopathy. Alcoholic liver disease with thrombocytopenia. Chronic macrocytic anemia. Liver cirrhosis. Acute kidney injury secondary to ATN. Multi-organ system failure. Plan: Plan dated 10/15/2022. The patient will continue on ventilatory support. She is a DO NOT RESUSCITATE. Apparently her significant other is going to court, on Saturday, to get guardianship, and possibly make this patient a comfort care patient. This seemed to be appropriate. We will continue to follow make recommendations along the way. Labs, x-rays, medications are reviewed. The patient remains on meropenem and Zyvox. Prognosis is very poor. Plan dated 10/16/2022. The patient remains on the mechanical ventilator. She's been off sedation since October 12. She is not particularly responsive. EEG shows diffuse slowing, consistent with severe metabolic or toxic encephalopathy. The patient remains on norepinephrine at 2.4 mcg/m. She remains on Zyvox and meropenem. The patient overall prognosis is very poor. Her significant other is attempting to get guardianship, and would wish to proceed to comfort care. The hearing and the cord is tomorrow. We will continue to follow and make recommendations along the way. Plan dated 10/17/2022. The patient remains on the mechanical ventilator. She's been off of all sedation since October 12. She is very poorly are nonresponsive. EEG showed diffuse slowing, consistent with severe metabolic or toxic encephalopathy. The patient's on a very small amount of norepinephrine. She remains on Zyvox and meropenem. Overall prognosis remains very poor. The plan is apparently to move towards comfort measures. [facility] has been called. Time with Patient: Greater than 30
--- NOTE | 2022-10-17 10:44 | P.PN ---
Subjective This is a 42-year-old female's seen consultation with acute kidney injury secondary to septic syndrome with multiple bacteria from her blood cultures including E. coli staph and strep. Source is possibly GI as well as pneumonia. She remains intubated currently on 30% FiO2, has been off of all inotropes. Patient has history of severe EtOH abuse. She is currently jaundiced with bilirubin of 10.4. Urine output at about 0-5 mL per hour. Family is considering comfort care measures This morning patient was noted to be grimacing to pain and she did actually follow some commands although at times it was not consistent. Discussed with nursing staff that if patient does not proceed with comfort care we will need to proceed with renal replacement therapy. Objective - Vital Signs Vital signs: Vital Signs Temp 97.5 F L 10/17/22 08:00 Pulse 99 10/17/22 10:00 Resp 21 10/17/22 10:00 BP 110/55 10/17/22 04:30 Pulse Ox 92 L 10/17/22 10:00 FiO2 30 10/17/22 10:00 Intake & Output 10/16/22 10/17/22 10/17/22 18:59 06:59 18:59 Intake Total 0458.143 5577 729 Output Total 242 198 38 Balance 1167.199 828 691 Weight 83 kg Intake: IV 1133 636 609 Dextrose 5% in Water 1, 650 600 150 000 ml @ 50 mls/hr IV . Q20H [facility] Rx#:[id number] Linezolid 600 mg In 300 300 Dextrose/Water 1 300ml. bag @ 150 mls/hr IVPB Q12HR [facility] Rx#:[id number] Meropenem 1 gm In Sodium 100 100 Chloride 0.9% 100 ml @ 33 .3 mls/hr IVPB Q8HR [facility] Rx#:[id number] Phytonadione 10 mg In 50 50 Sodium Chloride 0.9% 50 ml @ 100 mls/hr IVPB DAILY [facility] Rx#:[id number] pressure bag 33 36 9 Intake, IV Titration 156.199 0 Amount Meropenem 1 gm In Sodium 100 Chloride 0.9% 100 ml @ 33 .3 mls/hr IVPB Q8HR [facility] Rx#:[id number] Norepinephrine 4 mg In 56.199 0 Sodium Chloride 0.9% 250 ml @ 0.03 MCG/KG/MIN 8. 675 mls/hr IV .Q24H [facility] Rx#:[id number] Tube Feeding 120 390 90 Other 30 Output: Urine 242 198 38 Other: Voiding Method Indwelling Catheter Indwelling Catheter ABP, PAP, CO, CI - Last Documented Arterial Blood Pressure 121/46 - Exam Patient is intubated. Has been off of sedation for about 5 days now There are missing to painful stimuli today and did follow some commands although not consistent Examination of the heart S1 and S2 Examination lungs bilateral breath sounds are heard Abdomen is soft nontender Exertion lower extremity shows edema 2+ bilaterally - Labs CBC & Chem 7: 10/17/22 05:13 10/17/22 05:13 Labs: Abnormal Lab Results - Last 24 Hours (Table) 10/15/22 10/16/22 10/16/22 Range/Units 08:11 11: 17:33 RBC (3.80-5.40) m/uL Hgb (11.4-16.0) gm/dL Hct (34.0-46.0) % MCV (80.0-100.0) fL MCH (25.0-35.0) pg RDW (11.5-15.5) % Plt Count (150-450) k/uL Macrocytosis ABG O2 Saturation (94-97) % BUN (7-17) mg/dL Creatinine (0.52-1.04) mg/dL Glucose (74-99) mg/dL POC Glucose (mg/dL) 134 H 121 H (70-110) mg/dL Calcium (8.4-10.2) mg/dL Blood Bank Comment Sent to [facility] A Reference Lab Result See [facility] REF Reports A 10/16/22 10/17/22 10/17/22 Range/Units 23:20 05:13 05:13 RBC 1.98 L (3.80-5.40) m/uL Hgb 7.5 L (11.4-16.0) gm/dL Hct 21.9 L (34.0-46.0) % MCV 110.5 H (80.0-100.0) fL MCH 37.8 H (25.0-35.0) pg RDW 25.4 H (11.5-15.5) % Plt Count 24 L (150-450) k/uL Macrocytosis Marked A ABG O2 Saturation (94-97) % BUN 76 H (7-17) mg/dL Creatinine 2.94 H (0.52-1.04) mg/dL Glucose 118 H (74-99) mg/dL POC Glucose (mg/dL) 147 H (70-110) mg/dL Calcium 8.3 L (8.4-10.2) mg/dL Blood Bank Comment Reference Lab Result 10/17/22 10/17/22 Range/Units 05:26 05:49 RBC (3.80-5.40) m/uL Hgb (11.4-16.0) gm/dL Hct (34.0-46.0) % MCV (80.0-100.0) fL MCH (25.0-35.0) pg RDW (11.5-15.5) % Plt Count (150-450) k/uL Macrocytosis ABG O2 Saturation 97.9 H (94-97) % BUN (7-17) mg/dL Creatinine (0.52-1.04) mg/dL Glucose (74-99) mg/dL POC Glucose (mg/dL) 127 H (70-110) mg/dL Calcium (8.4-10.2) mg/dL Blood Bank Comment Reference Lab Result Microbiology - Last 24 Hours (Table) 10/11/22 06:08 Blood Culture - Final Blood No Growth after 144 hours 10/12/22 15:46 Blood Culture - Preliminary Blood No Growth after 96 hours Assessment and Plan Assessment: 1. Acute kidney injury secondary to sepsis with E. coli, staph aureus and alpha hemolytic strep growing in the blood cultures dated 10/09/2022 subsequent blood cultures 10/11/2022 is negative . Slightly worsening creatinine and urine output remains minimal. Extremely high vancomycin levels are contributing to acute kidney injury, she is off of vancomycin 2. Mild degree of hypokalemia secondary to GI losses and metabolic alkalosis. 3. History of alcoholic liver disease, total bilirubin is going up to 9.2 > 0.6. LFTs are improving 4. Hepatic encephalopathy with elevated ammonia levels 5. Mild degree of respiratory and metabolic alkalosis 6. Anemia with hemoglobin at 7.5 today, status post packed RBCs. She had vaginal bleeding. 7. Severe thrombocytopenia worsening likely from alcoholism and sepsis 8. Hypernatremia associated with free water deficit, currently maintained on D5W Plan: DC D5W If patient scored status is not changed to comfort care she will need to proceed with renal replacement therapy.
[2022-10-17 11:36] LABS: Glucose,Whole Blood 112 mg/dL (70-110)
--- NOTE | 2022-10-17 13:17 | P.PN ---
Subjective Progress Note Date: 10/17/22 The patient is seen at bedside and is accompanied with family members. She continues to be intubated on vent. Per nurse she only has intermittent wiggling of toes. Otherwise not following commands. Objective - Vital Signs Vital signs: Vital Signs Temp 97.5 F L 10/17/22 08:00 Pulse 98 10/17/22 11:36 Resp 15 10/17/22 11:36 BP 110/55 10/17/22 04:30 Pulse Ox 95 10/17/22 11:00 FiO2 30 10/17/22 11:35 Intake & Output 10/16/22 10/17/22 10/17/22 18:59 06:59 18:59 Intake Total 5804.839 5608 978 Output Total 242 198 58 Balance 1167.199 828 920 Weight 83 kg Intake: IV 1133 636 768 Dextrose 5% in Water 1, 650 600 300 000 ml @ 50 mls/hr IV . Q20H [facility] Rx#:[id number] Linezolid 600 mg In 300 300 Dextrose/Water 1 300ml. bag @ 150 mls/hr IVPB Q12HR [facility] Rx#:[id number] Meropenem 1 gm In Sodium 100 100 Chloride 0.9% 100 ml @ 33 .3 mls/hr IVPB Q8HR [facility] Rx#:[id number] Phytonadione 10 mg In 50 50 Sodium Chloride 0.9% 50 ml @ 100 mls/hr IVPB DAILY [facility] Rx#:[id number] pressure bag 33 36 18 Intake, IV Titration 156.199 0 Amount Meropenem 1 gm In Sodium 100 Chloride 0.9% 100 ml @ 33 .3 mls/hr IVPB Q8HR [facility] Rx#:[id number] Norepinephrine 4 mg In 56.199 0 Sodium Chloride 0.9% 250 ml @ 0.03 MCG/KG/MIN 8. 675 mls/hr IV .Q24H [facility] Rx#:[id number] Tube Feeding 120 390 180 Other 30 Output: Urine 242 198 58 Other: Voiding Method Indwelling Catheter Indwelling Catheter Indwelling Catheter ABP, PAP, CO, CI - Last Documented Arterial Blood Pressure 117/46 - Exam LUNG: Intubated on ventilator. HENT: Sclera icterus. INTEGUMENTARY: Looks jaundice NEURO: Limited because of her condition. Higher mental function: The patient is stupor. Followed one commands and was wiggled her left toes. Otherwis No verbally responsive or following commands. Cranial Nerves: I had to manually open her eyes and primary gaze is midline. Pupils are round, equal and reactive to light. No facial weakness. Is breathing over the vent. Motor: Strength is unable to assess because of her condition. But was able to wiggle left toes. Otherwise no movement. To painful stimuli on bilateral upper extremities grimaces face. INTEGUMENTARY: Has edema in lowers. SOME OF THE WORK-UP DURING THIS HOSPITAL VISIT CONSISTED OF: Most recent Hemoglobin is 6.6 Ammonia is 16 AST 165 and ALT 36 TSH 0.436, free T4 1.32 Magnesium 1.5 Creatnine most recent 2.56 CT head showed no mass effect, no acute process. Interval development of fluid in the mastoid air cells and middle ear cavities. Routine EEG is abnormal. The background slowing suggestive of severe encephalopathy likely due to toxic metabolic abnormality. Otherwise there is no focal slowing, epileptiform discharges or seizure on the EEG. - Labs CBC & Chem 7: 10/17/22 05:13 10/17/22 05:13 Labs: Abnormal Lab Results - Last 24 Hours (Table) 10/16/22 10/16/22 10/17/22 Range/Units 17:33 23:20 05:13 RBC 1.98 L (3.80-5.40) m/uL Hgb 7.5 L (11.4-16.0) gm/dL Hct 21.9 L (34.0-46.0) % MCV 110.5 H (80.0-100.0) fL MCH 37.8 H (25.0-35.0) pg RDW 25.4 H (11.5-15.5) % Plt Count 24 L (150-450) k/uL Macrocytosis Marked A ABG O2 Saturation (94-97) % BUN (7-17) mg/dL Creatinine (0.52-1.04) mg/dL Glucose (74-99) mg/dL POC Glucose (mg/dL) 121 H 147 H (70-110) mg/dL Calcium (8.4-10.2) mg/dL 10/17/22 10/17/22 10/17/22 Range/Units 05:13 05:26 05:49 RBC (3.80-5.40) m/uL Hgb (11.4-16.0) gm/dL Hct (34.0-46.0) % MCV (80.0-100.0) fL MCH (25.0-35.0) pg RDW (11.5-15.5) % Plt Count (150-450) k/uL Macrocytosis ABG O2 Saturation 97.9 H (94-97) % BUN 76 H (7-17) mg/dL Creatinine 2.94 H (0.52-1.04) mg/dL Glucose 118 H (74-99) mg/dL POC Glucose (mg/dL) 127 H (70-110) mg/dL Calcium 8.3 L (8.4-10.2) mg/dL 10/17/22 Range/Units 11:34 RBC (3.80-5.40) m/uL Hgb (11.4-16.0) gm/dL Hct (34.0-46.0) % MCV (80.0-100.0) fL MCH (25.0-35.0) pg RDW (11.5-15.5) % Plt Count (150-450) k/uL Macrocytosis ABG O2 Saturation (94-97) % BUN (7-17) mg/dL Creatinine (0.52-1.04) mg/dL Glucose (74-99) mg/dL POC Glucose (mg/dL) 112 H (70-110) mg/dL Calcium (8.4-10.2) mg/dL Microbiology - Last 24 Hours (Table) 10/11/22 06:08 Blood Culture - Final Blood No Growth after 144 hours 10/12/22 15:46 Blood Culture - Preliminary Blood No Growth after 96 hours Assessment and Plan Assessment: * Altered mental status, likely due to hepatic encephalopathy, probable superimposed toxic metabolic encephalopathy. * Acute renal failure--worsening * Hyponatremia * Hypomagnesemia * Anemia, * Thrombocytopenia, severe * Hypothyroidism * Macrocytosis, likely multifactorial due to below * Chronic alcoholism * History of B12 deficiency * Folate deficiency (has history and still ongoing) Plan: * EEG: severe encephalopathy likely due to toxic-metabolic abnormality. Otherwise no seizure, epileptiform discharge or focal slowing. * Is on thiamine 100mg daily. * Vitamin B12 level: 1580 and serum folate: 3.10 (deficient). I resumed Vitamin B12 1000mcg daily and folic acid 1mg daily. * Medical management as per IM and other specialties. Family has decided to make her comfort care. Plan is discussed with patient's aunt who is at bedside. Time with Patient: Less than 30
--- NOTE | 2022-10-17 14:23 | P.PN ---
Subjective Progress Note Date: 10/17/22 Principal diagnosis: Sepsis and bacteremia Patient is a 42-year-old female with a past medical history significant for GERD reflux diabetic steatosis alcohol abuse presenting to the ER for evaluation of mental status changes , patient was noticed to be hypotensive afebrile and evidence of sepsis requiring intubation and admission to the ICU. On today's evaluation had that is 10/17/2022, the patient remains to be afebrile, the patient remains to be intubated on the vent with some response but the nursing staff patient trying to open eyes awake and the left foot toes, the patient FiO2 is currently stable at 30% and no significant purulent secretion through the ET and no diarrhea has reported by the nursing staff Objective - Vital Signs Vital signs: Vital Signs Temp 97.5 F L 10/17/22 12:00 Pulse 101 H 10/17/22 13:00 Resp 18 10/17/22 13:00 BP 112/45 10/17/22 13:00 Pulse Ox 93 L 10/17/22 13:00 FiO2 30 10/17/22 13:00 Intake & Output 10/16/22 10/17/22 10/17/22 18:59 06:59 18:59 Intake Total 7925.081 3293 978 Output Total 242 198 58 Balance 1167.199 828 920 Weight 83 kg Intake: IV 1133 636 768 Dextrose 5% in Water 1, 650 600 300 000 ml @ 50 mls/hr IV . Q20H [facility] Rx#:[id number] Linezolid 600 mg In 300 300 Dextrose/Water 1 300ml. bag @ 150 mls/hr IVPB Q12HR [facility] Rx#:[id number] Meropenem 1 gm In Sodium 100 100 Chloride 0.9% 100 ml @ 33 .3 mls/hr IVPB Q8HR [facility] Rx#:[id number] Phytonadione 10 mg In 50 50 Sodium Chloride 0.9% 50 ml @ 100 mls/hr IVPB DAILY [facility] Rx#:[id number] pressure bag 33 36 18 Intake, IV Titration 156.199 0 Amount Meropenem 1 gm In Sodium 100 Chloride 0.9% 100 ml @ 33 .3 mls/hr IVPB Q8HR [facility] Rx#:[id number] Norepinephrine 4 mg In 56.199 0 Sodium Chloride 0.9% 250 ml @ 0.03 MCG/KG/MIN 8. 675 mls/hr IV .Q24H [facility] Rx#:[id number] Tube Feeding 120 390 180 Other 30 Output: Urine 242 198 58 Other: Voiding Method Indwelling Catheter Indwelling Catheter Indwelling Catheter ABP, PAP, CO, CI - Last Documented Arterial Blood Pressure 117/46 - Exam GENERAL DESCRIPTION: A middle-aged female intubated on the vent RESPIRATORY SYSTEM: Unlabored breathing , decreased breath sounds at bases HEART: S1 S2 regular rate and rhythm , ABDOMEN: Soft , mild distention EXTREMITIES: No edema feet - Labs CBC & Chem 7: 10/17/22 05:13 10/17/22 05:13 Labs: Abnormal Lab Results - Last 24 Hours (Table) 10/16/22 10/16/22 10/17/22 Range/Units 17:33 23:20 05:13 RBC 1.98 L (3.80-5.40) m/uL Hgb 7.5 L (11.4-16.0) gm/dL Hct 21.9 L (34.0-46.0) % MCV 110.5 H (80.0-100.0) fL MCH 37.8 H (25.0-35.0) pg RDW 25.4 H (11.5-15.5) % Plt Count 24 L (150-450) k/uL Macrocytosis Marked A ABG O2 Saturation (94-97) % BUN (7-17) mg/dL Creatinine (0.52-1.04) mg/dL Glucose (74-99) mg/dL POC Glucose (mg/dL) 121 H 147 H (70-110) mg/dL Calcium (8.4-10.2) mg/dL 10/17/22 10/17/22 10/17/22 Range/Units 05:13 05:26 05:49 RBC (3.80-5.40) m/uL Hgb (11.4-16.0) gm/dL Hct (34.0-46.0) % MCV (80.0-100.0) fL MCH (25.0-35.0) pg RDW (11.5-15.5) % Plt Count (150-450) k/uL Macrocytosis ABG O2 Saturation 97.9 H (94-97) % BUN 76 H (7-17) mg/dL Creatinine 2.94 H (0.52-1.04) mg/dL Glucose 118 H (74-99) mg/dL POC Glucose (mg/dL) 127 H (70-110) mg/dL Calcium 8.3 L (8.4-10.2) mg/dL 10/17/22 Range/Units 11:34 RBC (3.80-5.40) m/uL Hgb (11.4-16.0) gm/dL Hct (34.0-46.0) % MCV (80.0-100.0) fL MCH (25.0-35.0) pg RDW (11.5-15.5) % Plt Count (150-450) k/uL Macrocytosis ABG O2 Saturation (94-97) % BUN (7-17) mg/dL Creatinine (0.52-1.04) mg/dL Glucose (74-99) mg/dL POC Glucose (mg/dL) 112 H (70-110) mg/dL Calcium (8.4-10.2) mg/dL Microbiology - Last 24 Hours (Table) 10/11/22 06:08 Blood Culture - Final Blood No Growth after 144 hours 10/12/22 15:46 Blood Culture - Preliminary Blood No Growth after 96 hours Assessment and Plan (1) Sepsis Current Visit: Yes Status: Acute Code(s): A41.9 - SEPSIS, UNSPECIFIED ORGAN ISM SNOMED Code(s): 58122963 Plan: 1patient was in the hospital with sepsis/septic shock in this patient who did have a fever hypotension elevated lactic acid source could be abdominal , did have elevated liver enzyme however ultrasound of the abdomen did not show any evidence of cholecystitis, patient did have component of pneumonia 2-patient with cephalexin allergy that would limit the number of antibiotics safe to use, per discussion with the pharmacist not able to use Unasyn or Zosyn 3-the patient did have MRSA pneumonia and did have worsening of the kidney function and high vancomycin trough patient to continue with Zyvox and monitor clinical course closely 4patient also have some E. coli bacteremia and also growing Clostridium perfringens likely abdominal source , patient to continue with the meropenem 5patient remains to be afebrile patient white count has normalized. Repeat Blood culture negative, patient will be monitored closely awaiting further decision as for his withdrawal of care versus aggressive treatment Time with Patient: Less than 30
--- NOTE | 2022-10-17 20:46 | P.PN ---
Subjective Progress Note Date: 10/17/22 This is a 42-year-old female who was recently admitted with bilateral pneumonia, sepsis, alcohol intoxication withdrawal and remains on mechanical ventilation ICU with multiple medical consultations following. Significant other currently working on obtaining guardianship to make decisions and patient is no code currently. Apparently has a guardianship hearing on Saturday and will follow- up after that. Patient currently is afebrile and remains tachycardic and continues on mechanical ventilation with an FiO2 of 30% with a PEEP of 8. Patient is continued on IV antibiotics in the form of meropenem and linezolid and is requiring small dose Levophed and is currently not on any type of sedation and remains unresponsive. Neurology following an EEG is ordered today. Review of systems: Unable to obtain as patient is on mechanical vent and unresponsive 10/16/2022 Patient is seen and evaluated in follow-up maintained in the ICU currently off sedation and continues on mechanical vent with an FiO2 of 30% and PEEP is 5. Per social work who is following, significant other working on guardianship court hearing on Saturday to be able to make the decisions and will continue current treatment plan discussion of possible comfort measures once there is guardianship. Hemoglobin is 7.4 today and there is some vaginal bleeding noted per nursing staff. Repeat labs ordered and pending. Patient's kidney functions worsening and nephrology is following. Patient also continues on antibiotics with infectious disease following and will continue for now. Overall prognosis is poor and guarded. 10/17/2022 Patient continues to be in the ICU on mechanical ventilation with no significant change from previous. Per nursing staff [employer] has been contacted per family and are willing to proceed with this procedure and workup to determine any type of donations can be made. Patient's hemoglobin is above 7 and kidney functions continue to worsen. Significant other of 17 years did obtain mason pacheco and would like to proceed with [employer] as possible. Patient is currently afebrile maintained on antibiotics with ID following along with other consultations. Nephrology and pulmonary design engineer marine equipment are following closely. Neurology following as well and patient remains no code. Will follow-up on [employer] and continue supportive measures during their investigation. Review of systems: Unable to obtain as patient is on mechanical vent Active Medications Albuterol/Ipratropium (Ipratropium-Albuterol 3 Ml Neb) 3 ml INHALATION RT-Q4H [facility] Last Admin: 10/17/22 20:03 Dose: 3 ml Chlorhexidine Gluconate (Chlorhexidine Gluconate 15 Ml Cup) 15 ml MUCOUS MEM BID [facility] Last Admin: 10/17/22 08:49 Dose: 15 ml Cyanocobalamin (Cyanocobalamin 500 Mcg Tab) 1,000 mcg PO DAILY [facility] Last Admin: 10/17/22 08:49 Dose: 1,000 mcg Dextrose/Water (Dextrose 50% Syringe 50 Ml) 25 ml IVP PER PROTOCOL PRN; Protocol PRN Reason: Hypoglycemia Last Admin: 10/13/22 07:49 Dose: 25 ml Dextrose/Water (Dextrose 50% Syringe 50 Ml) 50 ml IVP PER PROTOCOL PRN; [place] col PRN Reason: Hypoglycemia Folic Acid (Folic Acid 1 Mg Tab) 1 mg PO DAILY [facility] Last Admin: 10/17/22 08:49 Dose: 1 mg Linezolid 600 mg/ IV Solution 300 mls @ 150 mls/hr IVPB Q12HR [facility]; Protocol Last Admin: 10/17/22 08:50 Dose: 150 mls/hr Phytonadione 10 mg/ Sodium (Chloride) 51 mls @ 100 mls/hr IVPB DAILY [facility] Last Admin: 10/17/22 09:56 Dose: 100 mls/hr Meropenem 1 gm/ Sodium (Chloride) 100 mls @ 33.3 mls/hr IVPB Q8HR [facility]; Protocol Last Admin: 10/17/22 16:13 Dose: 33.3 mls/hr Norepinephrine Bitartrate 4 mg (/ Sodium Chloride) 254 mls @ 8.675 mls/hr IV .Q24H [facility]; Protocol Last Titration: 10/17/22 20:20 Dose: 0.02 mcg/kg/min, 5.784 mls/hr Insulin Aspart (Insulin Aspart (Novolog) 100 Unit/Ml Vial) 0 unit SQ Q6H [facility]; Protocol Last Admin: 10/17/22 18:05 Dose: Not Given Miscellaneous Information (Potassium Replacement Protocol 1 Each Misc) 1 each MISCELLANE DAILY PRN; Protocol PRN Reason: Per Protocol Naloxone HCl (Naloxone 0.4 Mg/Ml 1 Ml Vial) 0.2 mg IV Q2M PRN PRN Reason: Opioid Reversal Pantoprazole Sodium (Pantoprazole 40 Mg/10 Ml Vial) 40 mg IV BID [facility] Last Admin: 10/17/22 08:49 Dose: 40 mg Rifaximin (Rifaximin 550 Mg Tablet) 550 mg PO BID [facility]; Protocol Stop: 11/08/22 09:01 Last Admin: 10/17/22 08:49 Dose: 550 mg Thiamine HCl (Thiamine 100 Mg Tab) 100 mg PO DAILY [facility] Last Admin: 10/17/22 08:49 Dose: 100 mg PHYSICAL EXAMINATION: GENERAL: The patient is alert and oriented x0, currently on mechanical vent and unresponsive ill-appearing HEENT: Pupils are round and equally reacting to light. EOMI. no scleral icterus. No conjunctival pallor. Normocephalic, atraumatic. No pharyngeal erythema. No thyromegaly. CARDIOVASCULAR: S1 and S2 muffled , tachycardia PULMONARY: diminished breath sounds bilaterally with coarse scattered rhonchi and crackles noted. ABDOMEN: soft. Nontender on exam. -distended, normoactive bowel sounds. No palpable organomegaly. MUSCULOSKELETAL: No joint swelling or deformity. EXTREMITIES: No cyanosis, clubbing, generalized edema noted throughout NEUROLOGICAL: Unable to completely assess as patient is unresponsive and on mechanical ventilation SKIN: No rashes. Jaundice Assessment: Bilateral pneumonia with possible aspiration, with sepsis, present on admission Acute hypoxic respiratory failure secondary to above requiring mechanical ventilation Anemia, thrombocytopenia secondary to alcoholic liver disease alcohol withdrawal syndrome and delirium tremens sinus tachycardia Acute renal failure Cirrhosis of the liver Possible vaginal bleeding Alcoholic hepatitis with chronic liver disease and ascites, cirrhosis of the liver GI prophylaxis DVT prophylaxis No code Plan: Recommend to continue with current medications and management and being followed in the ICU as patient remains on mechanical ventilation. Patient is off all sedation with neurology following as well as multiple other consultations including infectious disease. Most recent blood cultures are negative patient is maintained on IV antibiotics Patient does not have any immediate family to make decisions and does have a significant other although they are not and he is currently working on obtaining guardianship has been obtained by significant other and requesting to proceed with [employer] if patient is a candidate and [employer] was contacted and starting investigation. Due to multiple complex medical issues, prognosis is extremely guarded and poor as well. The impression and plan of care has been dictated by Cee Owens, nurse practitioner as directed. Dr. Bebe MD I have performed a history and examination and MDM of this patient, discussed the same with the dictator, and agree with the dictator's assessment and plan as written ,documented as a scribe. Based on total visit time, I have performed more than 50% of the visit. Any additional findings or plans will be noted. Objective - Vital Signs Vital signs: Vital Signs Temp 97.5 F L 10/17/22 08:00 Pulse 99 10/17/22 10:00 Resp 21 10/17/22 10:00 BP 110/55 10/17/22 04:30 Pulse Ox 92 L 10/17/22 10:00 FiO2 30 10/17/22 10:00 Intake & Output 10/16/22 10/17/22 10/17/22 18:59 06:59 18:59 Intake Total 0011.119 0729 729 Output Total 242 198 38 Balance 1167.199 828 691 Weight 83 kg Intake: IV 1133 636 609 Dextrose 5% in Water 1, 650 600 150 000 ml @ 50 mls/hr IV . Q20H [facility] Rx#:[id number] Linezolid 600 mg In 300 300 Dextrose/Water 1 300ml. bag @ 150 mls/hr IVPB Q12HR [facility] Rx#:[id number] Meropenem 1 gm In Sodium 100 100 Chloride 0.9% 100 ml @ 33 .3 mls/hr IVPB Q8HR [facility] Rx#:[id number] Phytonadione 10 mg In 50 50 Sodium Chloride 0.9% 50 ml @ 100 mls/hr IVPB DAILY [facility] Rx#:[id number] pressure bag 33 36 9 Intake, IV Titration 156.199 0 Amount Meropenem 1 gm In Sodium 100 Chloride 0.9% 100 ml @ 33 .3 mls/hr IVPB Q8HR [facility] Rx#:[id number] Norepinephrine 4 mg In 56.199 0 Sodium Chloride 0.9% 250 ml @ 0.03 MCG/KG/MIN 8. 675 mls/hr IV .Q24H [facility] Rx#:[id number] Tube Feeding 120 390 90 Other 30 Output: Urine 242 198 38 Other: Voiding Method Indwelling Catheter Indwelling Catheter ABP, PAP, CO, CI - Last Documented Arterial Blood Pressure 121/46 - Labs CBC & Chem 7: 10/17/22 05:13 10/17/22 05:13 Labs: Abnormal Lab Results - Last 24 Hours (Table) 0410/16/22 10/16/22 Range/Units 08:11 11:23 17:33 RBC (3.80-5.40) m/uL Hgb (11.4-16.0) gm/dL Hct (34.0-46.0) % MCV (80.0-100.0) fL MCH (25.0-35.0) pg RDW (11.5-15.5) % Plt Count (150-450) k/uL Macrocytosis ABG O2 Saturation (94-97) % BUN (7-17) mg/dL Creatinine (0.52-1.04) mg/dL Glucose (74-99) mg/dL POC Glucose (mg/dL) 134 H 121 H (70-110) mg/dL Calcium (8.4-10.2) mg/dL Blood Bank Comment Sent to [facility] A Reference Lab Result See [facility] REF Reports A 10/16/22 10/17/22 10/17/22 Range/Units 23:20 05:13 05:13 RBC 1.98 L (3.80-5.40) m/uL Hgb 7.5 L (11.4-16.0) gm/dL Hct 21.9 L (34.0-46.0) % MCV 110.5 H (80.0-100.0) fL MCH 37.8 H (25.0-35.0) pg RDW 25.4 H (11.5-15.5) % Plt Count 24 L (150-450) k/uL Macrocytosis Marked A ABG O2 Saturation (94-97) % BUN 76 H (7-17) mg/dL Creatinine 2.94 H (0.52-1.04) mg/dL Glucose 118 H (74-99) mg/dL POC Glucose (mg/dL) 147 H (70-110) mg/dL Calcium 8.3 L (8.4-10.2) mg/dL Blood Bank Comment Reference Lab Result 10/17/22 10/17/22 Range/Units 05:26 05:49 RBC (3.80-5.40) m/uL Hgb (11.4-16.0) gm/dL Hct (34.0-46.0) % MCV (80.0-100.0) fL MCH (25.0-35.0) pg RDW (11.5-15.5) % Plt Count (150-450) k/uL Macrocytosis ABG O2 Saturation 97.9 H (94-97) % BUN (7-17) mg/dL Creatinine (0.52-1.04) mg/dL Glucose (74-99) mg/dL POC Glucose (mg/dL) 127 H (70-110) mg/dL Calcium (8.4-10.2) mg/dL Blood Bank Comment Reference Lab Result Microbiology - Last 24 Hours (Table) 10/11/22 06:08 Blood Culture - Final Blood No Growth after 144 hours 10/12/22 15:46 Blood Culture - Preliminary Blood No Growth after 96 hours
[2022-10-18 00:08] LABS: Glucose,Whole Blood 121 mg/dL (70-110)
[2022-10-18 00:45] LABS: INR 1.4 (<1.2); Partial Thromboplastin Time 33.9 sec (22.0-30.0); Prothrombin Time 14.3 sec (9.0-12.0)
[2022-10-18] MEDS: INSULIN ASPART (NovoLOG) 100 UNIT/ML VIAL SQ SCH ×4 (00:53→18:36)
[2022-10-18] MEDS: MEROPENEM 1 GM in SODIUM CHLORIDE 0.9% 100 ML IVPB SCH ×3 (00:58→18:13)
[2022-10-18] MEDS: IPRATROPIUM-ALBUTEROL 3 ML NEB INHALATION SCH ×6 (01:03→20:07)
[2022-10-18 05:12] LABS: Glucose,Whole Blood 110 mg/dL (70-110)
[2022-10-18 05:23] LABS: Anisocytosis Marked; Basophils # (A) 0.1 k/uL (0-0.2); Basophils % (A) 0 %; Eosinophils # (A) 0.3 k/uL (0-0.7); Eosinophils % (A) 1 %; HCT 20.3 % (34.0-46.0); HGB 7.3 gm/dL (11.4-16.0); Lymphocytes % (A) 11 %; MCH 38.9 pg (25.0-35.0); MCHC 35.8 g/dL (31.0-37.0); MCV 108.7 fL (80.0-100.0); Macrocytosis Marked; Mean Platelet Volume 11.9; Monocytes # (A) 0.8 k/uL (0-1.0); Monocytes % (A) 4 %; Neutrophils # (A) 14.2 k/uL (1.3-7.7); Neutrophils % (A) 80 %; Poikilocytosis Slight; RBC 1.87 m/uL (3.80-5.40); WBC 17.9 k/uL (3.8-10.6)
[2022-10-18 05:27] LABS: ABG Base Excess -2.8 mmol/L; ABG HCO3 22 mmol/L (21-25); ABG Oxygen Saturation 98.6 % (94-97); ABG PCO2 36 mmHg (35-45); ABG PO2 101 mmHg (83-108); ABG TCO2 23 mmol/L (19-24); Allen Test Performed? Yes
[2022-10-18 05:28] LABS: Platelet Count 33 k/uL (150-450); RDW 25.5 % (11.5-15.5)
[2022-10-18 05:44] LABS: INR 1.5 (<1.2); Partial Thromboplastin Time 33.8 sec (22.0-30.0); Prothrombin Time 14.7 sec (9.0-12.0)
[2022-10-18 05:53] LABS: Albumin 2.3 g/dL (3.5-5.0); Calcium 8.7 mg/dL (8.4-10.2); Magnesium 1.9 mg/dL (1.6-2.3); Potassium 4.5 mmol/L (3.5-5.1); Total Protein 5.7 g/dL (6.3-8.2)
[2022-10-18 06:02] LABS: Total Bilirubin 16.9 mg/dL (0.2-1.3)
--- NOTE | 2022-10-18 08:04 | CT ---
EXAMINATION TYPE: CT ChestAbdPelvis wo con DATE OF EXAM: 10/18/2022 COMPARISON: 10/08/2022 HISTORY: GOL evaluation CT DLP: 942.5mGycm Unenhanced CT of the Chest, Abdomen and Pelvis Unenhanced CT of the chest ,abdomen and pelvis is performed. The lack of intravenous contrast limits evaluation of the solid and hollow viscera. Oral contrast: Yes CT Chest: LUNGS: Scattered airspace infiltrates throughout both lung toro persist may reflect infectious or i nflammatory process. A increasing bilateral pleural effusions left greater than right with maximal le ft-sided AP dimension of 3.5 cm on the left than on the right 2.3 cm. There is underlying compressive atelectasis. NG tube is seen coursing into the stomach. Endotracheal tube appears to be appropriatel y placed. MEDIASTINUM: Thoracic aorta is of normal caliber. The heart is not enlarged. No evidence for media stinal mass or adenopathy. HILAR STRUCTURES: No evidence for mass. No hilar adenopathy is appreciated. OTHER: No significant abnormality. CONTRAST CT ABDOMEN AND PELVIS: LIVER/GB: There is hepatomegaly with underlying hepatic steatosis. Contrast is seen within the gallbl adder. PANCREAS: No inflammation. No distinct mass. SPLEEN: No splenic enlargement. No lesion seen. ADRENALS: No nodule. No thickening. KIDNEYS/BLADDER: No hydronephrosis. No nephrolithiasis. No disctinct renal mass. Crocker balloon cat heter is in place. BOWEL: NG tube is seen within the stomach. There is gastric wall thickening which may reflect gastrit is. There is also small bowel wall thickening seen throughout as well as new development of ascites a bout the liver and spleen as well as within the interloop regions and pelvis. There is colonic wall t hickening noted which may reflect a nonspecific enteritis with differential diagnostic possibilities including infectious, inflammatory and ischemic causes. GENITAL ORGANS: No gross abnormality. LYMPH NODES: No greater than 1cm abdominal or pelvic lymph nodes are appreciated. AORTA: No significant abnormality. OSSEOUS STRUCTURES: No significant abnormality is seen. OTHER: There is underlying subcutaneous edema which may reflect anasarca. IMPRESSION: 1. Scattered infiltrates are compatible with inflammatory infectious process appear to be essentially unchanged although there are increasing pleural effusions and compressive atelectasis. 2. There is wall thickening involving the stomach small bowel and colon which may reflect diffuse inf ectious or inflammatory enterocolitis with gastritis. Vascular causes are not excluded. 3. Interval development of anasarca and intra-abdominal and intrapelvic ascites.
[2022-10-18] MEDS: FOLIC ACID 1 MG TAB PO SCH (08:52)
[2022-10-18] MEDS: CYANOCOBALAMIN 500 MCG TAB PO SCH (08:52)
[2022-10-18] MEDS: PANTOPRAZOLE 40 MG/10 ML VIAL IV SCH ×2 (08:52→20:46)
[2022-10-18] MEDS: CHLORHEXIDINE GLUCONATE 15 ML CUP MUCOUS MEM SCH ×2 (08:52→20:46)
[2022-10-18] MEDS: PHYTONADIONE 10 MG in SODIUM CHLORIDE 0.9% 50 ML IVPB SCH (08:52)
[2022-10-18] MEDS: LINEZOLID 600 MG in DEXTROSE/WATER 1 300ML.BAG IVPB SCH ×2 (08:53→20:46)
[2022-10-18] MEDS: RIFAXIMIN 550 MG TABLET PO SCH ×2 (08:53→20:46)
[2022-10-18] MEDS: THIAMINE 100 MG TAB PO SCH (08:53)
--- NOTE | 2022-10-18 09:56 | P.PN ---
Subjective Progress Note Date: 10/18/22 Principal diagnosis: Respiratory failure. Reevaluated today on 10/11/2022, patient remains in the ICU, intubated and mechanically ventilated. She is now on assist control rate of 24th of volume 400 FiO2 50% PEEP of 8 and a increased the PEEP to 10. ABG showed a pO2 of 59 pCO2 40 pH of 7.33. Patient is receiving a unit of packed RBC this morning for hemoglobin of 6.8. Her renal functioning seems to be deteriorating and worsening creatinine is up to 2.01. Liver enzymes remain elevated. Ammonia level is pending. Nephrology was consulted for her acute kidney injury, diabetes concern is the patient developing acute hepatorenal syndrome. Urine output remains marginal, Lasix was ordered to be given 1. Her IV fluid is Down to KVO, remains on sodium bicarb drip. Patient remains on norepinephrine at 0.12 she is also on Versed 3 mg/h, and propofol at 75 mcg/kg/m. 0.9 normal saline at 75 mL/h this will be cut down to KVO, and Lasix will be given. Chest x-ray is showing worsening in her consolidation in the left lower lobe, and I suspect there may be a component of groundglass appearance suggestive of mild interstitial edema and fluid overload. WBC count is 3.9 hemoglobin 6.8. Electrolytes are abnormal with sodium 145 potassium 2.8 bicarb is 20 BUN is 49 and creatinine 2.0 1 repeat ammonia level today is 89, remains quite elevated, patient is on lactulose and she is also on rifaximin. Reevaluated today on 10/12/2022, patient remains in the ICU intubated and mechanically ventilated. She is on assist control rate of 24-400 FiO2 50% and PEEP of 10 ABG showed a pO2 of 53 pCO2 34 pH of 7.44, hence FiO2 was increased to 50%*of 40%. Chest x-ray is showing improvement in her bilateraldisease especially on the left side. Remains on propofol at 25 mg/kg/m norepinephrine at 0.04 mcg/kg/m vasopressin 0.03 units per minute and bicarb drip which I cut it down to 25 mL per hour. 50 mL per hour. Patient remains on lactulose and ammonia level is down to 46 today. She will be receiving a dose of Lasix 80 mg IV push. I will discontinue propofol since the patient may not require much sedation. Patient is definitely not ready for any form of weaning or extubation at this point. Her platelets were noted to be quite low today, and I'm recommending 2 units of platelets to be given. His sputum came back positive for MRSA, and she remains covered with vancomycin. WBC count today is 5.4 hemoglobin is 8.4. Her platelets are 19,000. Electrolytes are normal except for sodium 145 BUN of 38 creatinine 2.17. Urine output is marginal, and I have recommended another dose of Lasix 80 mg to be given today IV push. Patient was reevaluated today on 10/13/2022, remains in the ICU, intubated and mechanically ventilated, patient is off sedation for the last 24 hours, no purposeful responses, no responses to any deep painful stimuli, she is on assist control rate of 24 volume 400 FiO2 40% PEEP is cut down from 10-8. ABG showed a pO2 of 145 pCO2 32 pH of 7.50. Platelets are low again, 15,017 the patient 2 units of platelets to be given today. We have ordered the bicarb to be discontinued since the bicarb level is normal. No functioning remains borderline about the same compared to yesterday. Patient is again off sedation for the last 24 hours. Chest x-ray continues to show bilateral airspace disease consistent with pneumonia, WBC count is 6.0 hemoglobin is 8.6, basic metabolic profile showed sodium of 146 potassium 3.2 chloride 111 bicarb 25 BUN 46 creatinine 2.44 liver enzymes remain a bit elevated with a total bilirubin of 9.2. Reevaluated today on 10/25/19 patient is sitting in the ICU, intubated and mechanically ventilated. Her ventilator settings were adjusted today, she is now on assist control rate of 18, volume 400 FiO2 40% and PEEP of 8 and her ABG showed a pO2 of 144 pCO2 36 pH of 7.44 hence the patient had FiO2 cut down to 35%. Chest x-ray continues to show diffuse bilateral infiltrates, relatively unchanged. Labs were reviewed she has a sodium 149 potassium 3.2 chloride 114 bicarb is 24 BUN is 55 creatinine 2.40. WBC count is 5.6 hemoglobin 7.2 hematocrit 21.2 platelets are down to 11,000, and the patient is receiving 2 units of platelets today. Patient had an episode of vaginal bleeding yesterday, it was basically a large blood clot coming out of her vaginal area. Patient had a test that came back negative. Patient is getting worse, she developing worsening abdominal distention, worsening bipedal edema, anasarca, ascites, he is also developing worsening neurological status and I'm recommending a CT of the brain to be done today, and a neurological consultation. Antibiotics curran, the patient was seen by infectious disease, and she is now on Rocephin and she is on linezolid/Zyvox. Her IV fluid has been changed to D5W cerebellar are mostly because of her hypernatremia that was noted on the labs today. Patient remains on lactulose, ammonia level is pending today. She is also on rifaximin.. Patient remains off sedation completely. Progress note dated 10/15/2022. The patient is seen today in room 254. She was admitted back on October 08 with mental status changes, aspiration pneumonia, alcoholic liver disease, alcohol withdrawal syndrome, and sepsis. The patient was intubated on the same today, October 08. She remains on the mechanical ventilator, at volume assist control, rate 18, tidal volume 400, FiO2 35%, and PEEP of 8. Blood gases show pO2 of 112, pCO2 37, and a pH 7.43. The FiO2 was turned down to 30%. Currently, she remains on Zyvox and meropenem. The patient's getting norepinephrine at 7 mcg/m, D5W at 50 mL an hour, and propofol has been of convalescent October 12. She's getting vital high protein at 5 mL an hour. Dietary yet to see her. White count 8.1, hemoglobin 6.6, hematocrit 19.9, and platelet count 14,000. PT 15.6 INR 1.6. Sodium 147, potassium 4, chlorides 112, CO2 26, BUN 62, and creatinine 2.56. AST is 165 ALT 36. Albumin is 2.2. Blood cultures are positive for Eubacterium, Escherichia coli, MRSA, and alpha-hemolytic streptococci. There were also positive for Clostridium perfringens. Chest x- ray shows an improving pattern, particularly to the left upper and right perihilar infiltrates. Progress note dated 10/16/2022. 42-year-old female seen again in room 254. She was admitted back on October 08 with mental status changes, aspiration pneumonia, alcoholic liver disease, alcohol withdrawal syndrome, and sepsis. The patient was intubated for respiratory failure on October 08. She remains on mechanical ventilator. She is on volume assist control, rate 18, tidal volume 400, FiO2 30%, PEEP of 8. Arterial blood gases show pO2 of 87, pCO2 39, and a pH is 7.40. Patient is on D5W at 50 mL an hour, norepinephrine at 2.4 mcg/m, saline at KVO, and Nepro at 30 mL an hour, which is goal. She's also getting free water flushes. Her antibiotics including Zyvox, and meropenem. White count 8.3, hemoglobin 7.4, hematocrit 21.6, and platelet count 21,000. Sodium 141, potassium 3.9, chlorides 107, CO2 24, BUN 71, creatinine 2.84. Blood cultures were reevaluated. She has multiple positive blood cultures. Chest x-ray from today is compared to x-rays done the day before, and are unchanged. The patient's EEG shows severe encephalopathy, with background slowing, but no focal slowing or seizure activity on the EEG. Progress note dated 10/17/2022. 42-year-old female seen again in room 254. She was admitted on October 08 with mental status changes, aspiration pneumonia, alcoholic liver disease and liver f ailure, alcohol withdrawal syndrome, and sepsis. The patient was intubated for respiratory failure on the day of admission. She remains on mechanical ventilator. She is on volume assist control, rate 18, tidal volume 400, FiO2 30%, PEEP of 8. Blood gases show pO2 of 93, pCO2 38, and a pH is 7.39. The patient's getting D5W at 50 mL an hour, norepinephrine at about a micrograms per minute, and Nepro tube feeds, at 30 mL an hour, which is goal. White count is 10, hemoglobin 7.5, hematocrit 21.9, and platelet count 24,000. Sodium 137, potassium 3.8, chlorides 102, CO2 22, anion gap 13, BUN 76, creatinine 2.94. Calcium is 8.3. Blood cultures were positive for Escherichia coli, methicillin- resistant staph aureus, alphahemolytic streptococci, and Clostridium perfringens. In addition, blood cultures are positive for Eubacterium lentum. The patient remains on Zyvox and meropenem. The patient's significant other was going to get power of golf coach, and possibly move towards comfort measures. [employer] has been called. Chest x-ray today is largely unchanged. Progress note dated 10/18/2022. 42-year-old female seen again in room 254. She's currently being followed by [facility]. The patient remains on the mechanical ventilator. He is on volume assist control, rate 18, tidal volume 400, FiO2 30%, and PEEP of 8. Arterial blood gases show pO2 101, pCO2 36, pH is 7.4. The patient is receiving saline at KVO, norepinephrine at 4 mcg/m, and tube feedings with Nepro at 30 mL an hour, which is goal. The patient is receiving meropenem and Zyvox. The transplant team may wish for us to do bronchoscopy. They have not indicated that as yet. White count 17.9, hemoglobin 7.3, hematocrit 20.3, and platelet count 33,000. Lactic acid was 1.7. Sodium 135, potassium 4.5, chlorides 103, CO2 20, BUN 84, and creatinine 3.23. Bilirubin is now up to 16.9. N-terminal proBNP is 1690. Lipase is 472. Computed tomography scan of the chest abdomen and pelvis shows scattered infiltrates, thickening involving the stomach wall and bowel, and colon, and diffuse anasarca and ascites. Objective - Vital Signs Vital signs: Vital Signs Temp 98.2 F 10/18/22 08:00 Pulse 105 H 10/18/22 09:15 Resp 23 10/18/22 09:15 BP 114/59 10/18/22 09:15 Pulse Ox 91 L 10/18/22 09:15 FiO2 30 10/18/22 09:15 Intake & Output 10/17/22 10/18/22 10/18/22 18:59 06:59 18:59 Intake Total 1173 627.106 43 Output Total 84 153 15 Balance 1089 474.106 28 Weight 82 kg 82 kg Intake: IV 753 169 13 Dextrose 5% in Water 1, 200 000 ml @ 50 mls/hr IV . Q20H [facility] Rx#:[id number] Linezolid 600 mg In 300 Dextrose/Water 1 300ml. bag @ 150 mls/hr IVPB Q12HR [facility] Rx#:[id number] Meropenem 1 gm In Sodium 100 Chloride 0.9% 100 ml @ 33 .3 mls/hr IVPB Q8HR [facility] Rx#:[id number] Phytonadione 10 mg In 50 Sodium Chloride 0.9% 50 ml @ 100 mls/hr IVPB DAILY [facility] Rx#:[id number] Sodium Chloride 0.9% 1, 70 130 10 000 ml @ 75 mls/hr IV . [id number] [facility] Rx#:[id number] pressure bag 33 39 3 Intake, IV Titration 68.106 Amount Norepinephrine 4 mg In 68.106 Sodium Chloride 0.9% 250 ml @ 0.03 MCG/KG/MIN 8. 675 mls/hr IV .Q24H [facility] Rx#:[id number] Tube Feeding 330 390 30 Other 90 Output: Urine 84 153 15 Other: Voiding Method Indwelling Catheter Indwelling Catheter ABP, PAP, CO, CI - Last Documented Arterial Blood Pressure 101/34 - Exam No acute distress, off of sedation, with an orally placed endotracheal tube and NG tube. HEENT examination is grossly unremarkable. Sclerae icterus. Neck supple. Full range of motion. No adenopathy thyromegaly or neck vein distention. Cardiovascular examination reveals regular rhythm rate. S1-S2 normal. No S3 or S4. No discernible murmur noted. Heart sounds are distant. Heart rate 105 bpm. Lungs reveal scattered rhonchi throughout. No wheezes or crackles. Breath sounds equal bilaterally. Saturations are 93 %. Abdomen soft bowel sounds are heard. No masses or tenderness. Extremities are intact. No cyanosis clubbing or edema. Skin reveals jaundice. Neurologic examination cannot be adequately assessed at this time. - Labs CBC & Chem 7: 10/18/22 05:10 10/18/22 05:10 Labs: Abnormal Lab Results - Last 24 Hours (Table) 10/17/22 10/17/22 10/18/22 Range/Units 11:34 23:59 00:07 WBC (3.8-10.6) k/uL RBC (3.80-5.40) m/uL Hgb (11.4-16.0) gm/dL Hct (34.0-46.0) % MCV (80.0-100.0) fL MCH (25.0-35.0) pg RDW (11.5-15.5) % Plt Count (150-450) k/uL Neutrophils # (1.3-7.7) k/uL Macrocytosis PT 14.3 H (9.0-12.0) sec INR 1.4 H (<1.2) APTT 33.9 H (22.0-30.0) sec D-Dimer 7.33 H (<0.60) mg/L FEU ABG O2 Saturation (94-97) % ABG Lactic Acid (0.5-1.6) mmol/L Sodium (137-145) mmol/L Carbon Dioxide (22-30) mmol/L BUN (7-17) mg/dL Creatinine (0.52-1.04) mg/dL Glucose (74-99) mg/dL POC Glucose (mg/dL) 112 H 121 H (70-110) mg/dL Total Bilirubin (0.2-1.3) mg/dL AST (14-36) U/L Alkaline Phosphatase (38-126) U/L Total Protein (6.3-8.2) g/dL Albumin (3.5-5.0) g/dL Lipase (23-300) U/L 10/18/22 10/18/22 10/18/22 Range/Units 05:10 05:10 05:10 WBC 17.9 H (3.8-10.6) k/uL RBC 1.87 L (3.80-5.40) m/uL Hgb 7.3 L (11.4-16.0) gm/dL Hct 20.3 L (34.0-46.0) % MCV 108.7 H (80.0-100.0) fL MCH 38.9 H (25.0-35.0) pg RDW 25.5 H (11.5-15.5) % Plt Count 33 L (150-450) k/uL Neutrophils # 14.2 H (1.3-7.7) k/uL Macrocytosis Marked A PT 14.7 H (9.0-12.0) sec INR 1.5 H (<1.2) APTT 33.8 H (22.0-30.0) sec D-Dimer (<0.60) mg/L FEU ABG O2 Saturation (94-97) % ABG Lactic Acid (0.5-1.6) mmol/L Sodium 135 L (137-145) mmol/L Carbon Dioxide 20 L (22-30) mmol/L BUN 84 H (7-17) mg/dL Creatinine 3.23 H (0.52-1.04) mg/dL Glucose 107 H (74-99) mg/dL POC Glucose (mg/dL) (70-110) mg/dL Total Bilirubin 16.9 H* (0.2-1.3) mg/dL AST 137 H (14-36) U/L Alkaline Phosphatase 150 H (38-126) U/L Total Protein 5.7 L (6.3-8.2) g/dL Albumin 2.3 L (3.5-5.0) g/dL Lipase 472 H (23-300) U/L 10/18/22 10/18/22 Range/Units 05:10 05:23 WBC (3.8-10.6) k/uL RBC (3.80-5.40) m/uL Hgb (11.4-16.0) gm/dL Hct (34.0-46.0) % MCV (80.0-100.0) fL MCH (25.0-35.0) pg RDW (11.5-15.5) % Plt Count (150-450) k/uL Neutrophils # (1.3-7.7) k/uL Macrocytosis PT (9.0-12.0) sec INR (<1.2) APTT (22.0-30.0) sec D-Dimer (<0.60) mg/L FEU ABG O2 Saturation 98.6 H (94-97) % ABG Lactic Acid 1.7 H (0.5-1.6) mmol/L Sodium (137-145) mmol/L Carbon Dioxide (22-30) mmol/L BUN (7-17) mg/dL Creatinine (0.52-1.04) mg/dL Glucose (74-99) mg/dL POC Glucose (mg/dL) (70-110) mg/dL Total Bilirubin (0.2-1.3) mg/dL AST (14-36) U/L Alkaline Phosphatase (38-126) U/L Total Protein (6.3-8.2) g/dL Albumin (3.5-5.0) g/dL Lipase (23-300) U/L Microbiology - Last 24 Hours (Table) 10/12/22 15:46 Blood Culture - Preliminary Blood No Growth after 120 hours 10/11/22 06:08 Blood Culture - Final Blood No Growth after 144 hours Assessment and Plan Assessment: Acute hypoxemic respiratory failure secondary to sepsis/septic shock. S/P intubation and mechanical ventilation on October 08, 2022. Methicillin-resistant staph aureus pneumonia. Acute bacteremia secondary to Escherichia coli, Staphylococcus aureus, and streptococcus, alphahemolytic. Acute metabolic acidosis secondary to lactic acidemia. Acute alcohol withdrawal. History of polysubstance abuse. Hepatic encephalopathy. Alcoholic liver disease with thrombocytopenia. Chronic macrocytic anemia. Liver cirrhosis. Acute kidney injury secondary to ATN. Multi-organ system failure. Plan: Plan dated 10/15/2022. The patient will continue on ventilatory support. She is a DO NOT RESUSCITATE. Apparently her significant other is going to court, on Saturday, to get guardianship, and possibly make this patient a comfort care patient. This seeme d to be appropriate. We will continue to follow make recommendations along the way. Labs, x-rays, medications are reviewed. The patient remains on meropenem and Zyvox. Prognosis is very poor. Plan dated 10/16/2022. The patient remains on the mechanical ventilator. She's been off sedation since October 12. She is not particularly responsive. EEG shows diffuse slowing, consistent with severe metabolic or toxic encephalopathy. The patient remains on norepinephrine at 2.4 mcg/m. She remains on Zyvox and meropenem. The patient overall prognosis is very poor. Her significant other is attempting to get guardianship, and would wish to proceed to comfort care. The hearing and the cord is tomorrow. We will continue to follow and make recommendations along the way. Plan dated 10/17/2022. The patient remains on the mechanical ventilator. She's been off of all sedation since October 12. She is very poorly are nonresponsive. EEG showed diffuse slowing, consistent with severe metabolic or toxic encephalopathy. The patient's on a very small amount of norepinephrine. She remains on Zyvox and meropenem. Overall prognosis remains very poor. The plan is apparently to move towards comfort measures. [employer] has been called. Plan dated 10/18/2022. The patient is currently being evaluated by [facility], for organ donation. The patient is on a dose of norepinephrine, at 4 mcg/m. She remains on the mechanical ventilator. Her bilirubin level is now nearly 17. Labs, x-rays, and medications are reviewed. She remains on Zyvox and meropenem. The transplant team, may wish for us to do a bronchoscopy on this patient. We will await their recommendation. Prognosis is obviously very poor. The patient is a DO NOT RESUSCITATE patient. Time with Patient: Greater than 30
[2022-10-18] MEDS: NOREPINEPHRINE 4 MG in SODIUM CHLORIDE 0.9% 250 ML IV SCH ×2 (10:03→18:31)
--- NOTE | 2022-10-18 10:13 | XR ---
EXAMINATION TYPE: XR chest 1V portable DATE OF EXAM: 10/18/2022 COMPARISON: 10/17/2022 HISTORY: SOB, Follow Up FINDINGS: Indwelling tubes and catheters are unchanged. Scattered airspace infiltrates persist unchanged. Stable appearance of the cardio-mediastinal structures at this time. IMPRESSION: 1. Stable portable chest. Clinical correlation and follow up until resolution is recommended.
--- NOTE | 2022-10-18 10:49 | P.PN ---
Subjective This is a 42-year-old female's seen consultation with acute kidney injury secondary to sepsis with multiple bacteria from her blood cultures including E. coli staph and strep. Source is possibly GI as well as pneumonia. She remains intubated currently on 30% FiO2, has been off of all inotropes. Off of all sedation for the last week. Patient has history of severe EtOH abuse. She is jaundiced with bilirubin of 10.4. Urine output at about 10-15 mL per hour. Family is considering comfort care measures This morning patient only grimaces to very painful stimuli. She does not open eyes. Not responding to verbal stimuli. Objective - Vital Signs Vital signs: Vital Signs Temp 98.2 F 10/18/22 08:00 Pulse 105 H 10/18/22 10:00 Resp 22 10/18/22 10:00 BP 114/51 10/18/22 10:00 Pulse Ox 92 L 10/18/22 10:00 FiO2 30 10/18/22 10:00 Intake & Output 10/17/22 10/18/22 10/18/22 18:59 06:59 18:59 Intake Total 1173 627.106 314.894 Output Total 84 153 35 Balance 1089 474.106 279.894 Weight 82 kg 82 kg Intake: IV 753 169 39 Dextrose 5% in Water 1, 200 000 ml @ 50 mls/hr IV . Q20H [facility] Rx#:[id number] Linezolid 600 mg In 300 Dextrose/Water 1 300ml. bag @ 150 mls/hr IVPB Q12HR [facility] Rx#:[id number] Meropenem 1 gm In Sodium 100 Chloride 0.9% 100 ml @ 33 .3 mls/hr IVPB Q8HR [facility] Rx#:[id number] Phytonadione 10 mg In 50 Sodium Chloride 0.9% 50 ml @ 100 mls/hr IVPB DAILY [facility] Rx#:[id number] Sodium Chloride 0.9% 1, 70 130 30 000 ml @ 75 mls/hr IV . [id number] [facility] Rx#:[id number] pressure bag 33 39 9 Intake, IV Titration 68.106 185.894 Amount Norepinephrine 4 mg In 68.106 185.894 Sodium Chloride 0.9% 250 ml @ 0.03 MCG/KG/MIN 8. 675 mls/hr IV .Q24H [facility] Rx#:[id number] Tube Feeding 330 390 90 Other 90 Output: Urine 84 153 35 Other: Voiding Method Indwelling Catheter Indwelling Catheter Indwelling Catheter ABP, PAP, CO, CI - Last Documented Arterial Blood Pressure 115/41 - Exam Patient is intubated. Has been off of sedation for about 1 week now to very painful stimuli. Not responding to verbal stimuli. Examination of the heart S1 and S2 Examination lungs bilateral breath sounds are heard Abdomen is soft nontender Exertion lower extremity shows edema 2+ bilaterally - Labs CBC & Chem 7: 10/18/22 05:10 10/18/22 05:10 Labs: Abnormal Lab Results - Last 24 Hours (Table) 10/17/22 10/17/22 10/18/22 Range/Units 11:34 23:59 00:07 WBC (3.8-10.6) k/uL RBC (3.80-5.40) m/uL Hgb (11.4-16.0) gm/dL Hct (34.0-46.0) % MCV (80.0-100.0) fL MCH (25.0-35.0) pg RDW (11.5-15.5) % Plt Count (150-450) k/uL Neutrophils # (1.3-7.7) k/uL Macrocytosis PT 14.3 H (9.0-12.0) sec INR 1.4 H (<1.2) APTT 33.9 H (22.0-30.0) sec D-Dimer 7.33 H (<0.60) mg/L FEU ABG O2 Saturation (94-97) % ABG Lactic Acid (0.5-1.6) mmol/L Sodium (137-145) mmol/L Carbon Dioxide (22-30) mmol/L BUN (7-17) mg/dL Creatinine (0.52-1.04) mg/dL Glucose (74-99) mg/dL POC Glucose (mg/dL) 112 H 121 H (70-110) mg/dL Phosphorus (2.5-4.5) mg/dL Total Bilirubin (0.2-1.3) mg/dL AST (14-36) U/L Alkaline Phosphatase (38-126) U/L Total Protein (6.3-8.2) g/dL Albumin (3.5-5.0) g/dL Lipase (23-300) U/L 10/18/22 10/18/22 10/18/22 Range/Units 05:10 05:10 05:10 WBC 17.9 H (3.8-10.6) k/uL RBC 1.87 L (3.80-5.40) m/uL Hgb 7.3 L (11.4-16.0) gm/dL Hct 20.3 L (34.0-46.0) % MCV 108.7 H (80.0-100.0) fL MCH 38.9 H (25.0-35.0) pg RDW 25.5 H (11.5-15.5) % Plt Count 33 L (150-450) k/uL Neutrophils # 14.2 H (1.3-7.7) k/uL Macrocytosis Marked A PT 14.7 H (9.0-12.0) sec INR 1.5 H (<1.2) APTT 33.8 H (22.0-30.0) sec D-Dimer (<0.60) mg/L FEU ABG O2 Saturation (94-97) % ABG Lactic Acid (0.5-1.6) mmol/L Sodium 135 L (137-145) mmol/L Carbon Dioxide 20 L (22-30) mmol/L BUN 84 H (7-17) mg/dL Creatinine 3.23 H (0.52-1.04) mg/dL Glucose 107 H (74-99) mg/dL POC Glucose (mg/dL) (70-110) mg/dL Phosphorus (2.5-4.5) mg/dL Total Bilirubin 16.9 H* (0.2-1.3) mg/dL AST 137 H (14-36) U/L Alkaline Phosphatase 150 H (38-126) U/L Total Protein 5.7 L (6.3-8.2) g/dL Albumin 2.3 L (3.5-5.0) g/dL Lipase 472 H (23-300) U/L 10/18/22 10/18/22 10/18/22 Range/Units 05:10 05:23 09:24 WBC (3.8-10.6) k/uL RBC (3.80-5.40) m/uL Hgb (11.4-16.0) gm/dL Hct (34.0-46.0) % MCV (80.0-100.0) fL MCH (25.0-35.0) pg RDW (11.5-15.5) % Plt Count (150-450) k/uL Neutrophils # (1.3-7.7) k/uL Macrocytosis PT (9.0-12.0) sec INR (<1.2) APTT (22.0-30.0) sec D-Dimer (<0.60) mg/L FEU ABG O2 Saturation 98.6 H (94-97) % ABG Lactic Acid 1.7 H (0.5-1.6) mmol/L Sodium (137-145) mmol/L Carbon Dioxide (22-30) mmol/L BUN (7-17) mg/dL Creatinine (0.52-1.04) mg/dL Glucose (74-99) mg/dL POC Glucose (mg/dL) (70-110) mg/dL Phosphorus 8.2 H (2.5-4.5) mg/dL Total Bilirubin (0.2-1.3) mg/dL AST (14-36) U/L Alkaline Phosphatase (38-126) U/L Total Protein (6.3-8.2) g/dL Albumin (3.5-5.0) g/dL Lipase (23-300) U/L Microbiology - Last 24 Hours (Table) 10/12/22 15:46 Blood Culture - Preliminary Blood No Growth after 120 hours 10/11/22 06:08 Blood Culture - Final Blood No Growth after 144 hours Assessment and Plan Assessment: 1. Acute kidney injury secondary to sepsis with E. coli, staph aureus and alpha hemolytic strep growing in the blood cultures dated 10/09/2022 subsequent blood cultures 10/11/2022 is negative . Slightly worsening creatinine and urine output remains minimal. Extremely high vancomycin levels are contributing to acute kidney injury, she is off of vancomycin 2. Mild degree of hypokalemia secondary to GI losses and metabolic alkalosis. 3. History of alcoholic liver disease, total bilirubin is going up to 9.2 > 0.6. LFTs are improving 4. Hepatic encephalopathy with elevated ammonia levels 5. Mild degree of respiratory and metabolic alkalosis 6. Anemia with hemoglobin at 7.5 today, status post packed RBCs. She had vaginal bleeding. 7. Severe thrombocytopenia worsening likely from alcoholism and sepsis 8. Hypernatremia associated with free water deficit, status post D5W Plan: Continue off of IV fluids Plans for possible comfort care measures tomorrow
[2022-10-18 12:06] LABS: Glucose,Whole Blood 122 mg/dL (70-110)
--- NOTE | 2022-10-18 14:27 | P.PN ---
Subjective Progress Note Date: 10/18/22 Principal diagnosis: Sepsis and bacteremia Patient is a 42-year-old female with a past medical history significant for GERD reflux diabetic steatosis alcohol abuse presenting to the ER for evaluation of mental status changes , patient was noticed to be hypotensive afebrile and evidence of sepsis requiring intubation and admission to the ICU. On today's evaluation had that is 10/18/2022, the patient continues to be afebrile, the patient remains to be intubated on the vent, the patient FiO2 is currently stable at 30% and no significant purulent secretion through the ET and no diarrhea has reported by the nursing staff Objective - Vital Signs Vital signs: Vital Signs Temp 98 F 10/18/22 12:00 Pulse 102 H 10/18/22 12:15 Resp 23 10/18/22 12:15 BP 117/51 10/18/22 12:15 Pulse Ox 92 L 10/18/22 12:15 FiO2 30 10/18/22 12:15 Intake & Output 10/17/22 10/18/22 10/18/22 18:59 06:59 18:59 Intake Total 1173 627.106 400.894 Output Total 84 153 55 Balance 1089 474.106 345.894 Weight 82 kg 82 kg Intake: IV 753 169 65 Dextrose 5% in Water 1, 200 000 ml @ 50 mls/hr IV . Q20H [facility] Rx#:[id number] Linezolid 600 mg In 300 Dextrose/Water 1 300ml. bag @ 150 mls/hr IVPB Q12HR [facility] Rx#:[id number] Meropenem 1 gm In Sodium 100 Chloride 0.9% 100 ml @ 33 .3 mls/hr IVPB Q8HR [facility] Rx#:[id number] Phytonadione 10 mg In 50 Sodium Chloride 0.9% 50 ml @ 100 mls/hr IVPB DAILY [facility] Rx#:[id number] Sodium Chloride 0.9% 1, 70 130 50 000 ml @ 75 mls/hr IV . [id number] [facility] Rx#:[id number] pressure bag 33 39 15 Intake, IV Titration 68.106 185.894 Amount Norepinephrine 4 mg In 68.106 185.894 Sodium Chloride 0.9% 250 ml @ 0.03 MCG/KG/MIN 8. 675 mls/hr IV .Q24H [facility] Rx#:[id number] Tube Feeding 330 390 150 Other 90 Output: Urine 84 153 55 Other: Voiding Method Indwelling Catheter Indwelling Catheter Indwelling Catheter ABP, PAP, CO, CI - Last Documented Arterial Blood Pressure 114/41 - Exam GENERAL DESCRIPTION: A middle-aged female intubated on the vent RESPIRATORY SYSTEM: Unlabored breathing , decreased breath sounds at bases HEART: S1 S2 regular rate and rhythm , ABDOMEN: Soft , mild distention EXTREMITIES: No edema feet - Labs CBC & Chem 7: 10/18/22 05:10 10/18/22 05:10 Labs: Abnormal Lab Results - Last 24 Hours (Table) 10/17/22 10/18/22 10/18/22 Range/Units 23:59 00:07 05:10 WBC (3.8-10.6) k/uL RBC (3.80-5.40) m/uL Hgb (11.4-16.0) gm/dL Hct (34.0-46.0) % MCV (80.0-100.0) fL MCH (25.0-35.0) pg RDW (11.5-15.5) % Plt Count (150-450) k/uL Neutrophils # (1.3-7.7) k/uL Macrocytosis PT 14.3 H 14.7 H (9.0-12.0) sec INR 1.4 H 1.5 H (<1.2) APTT 33.9 H 33.8 H (22.0-30.0) sec D-Dimer 7.33 H (<0.60) mg/L FEU ABG O2 Saturation (94-97) % ABG Lactic Acid (0.5-1.6) mmol/L Sodium (137-145) mmol/L Carbon Dioxide (22-30) mmol/L BUN (7-17) mg/dL Creatinine (0.52-1.04) mg/dL Glucose (74-99) mg/dL POC Glucose (mg/dL) 121 H (70-110) mg/dL Phosphorus (2.5-4.5) mg/dL Total Bilirubin (0.2-1.3) mg/dL AST (14-36) U/L Alkaline Phosphatase (38-126) U/L Total Protein (6.3-8.2) g/dL Albumin (3.5-5.0) g/dL Lipase (23-300) U/L 10/18/22 10/18/22 10/18/22 Range/Units 05:10 05:10 05:10 WBC 17.9 H (3.8-10.6) k/uL RBC 1.87 L (3.80-5.40) m/uL Hgb 7.3 L (11.4-16.0) gm/dL Hct 20.3 L (34.0-46.0) % MCV 108.7 H (80.0-100.0) fL MCH 38.9 H (25.0-35.0) pg RDW 25.5 H (11.5-15.5) % Plt Count 33 L (150-450) k/uL Neutrophils # 14.2 H (1.3-7.7) k/uL Macrocytosis Marked A PT (9.0-12.0) sec INR (<1.2) APTT (22.0-30.0) sec D-Dimer (<0.60) mg/L FEU ABG O2 Saturation (94-97) % ABG Lactic Acid 1.7 H (0.5-1.6) mmol/L Sodium 135 L (137-145) mmol/L Carbon Dioxide 20 L (22-30) mmol/L BUN 84 H (7-17) mg/dL Creatinine 3.23 H (0.52-1.04) mg/dL Glucose 107 H (74-99) mg/dL POC Glucose (mg/dL) (70-110) mg/dL Phosphorus (2.5-4.5) mg/dL Total Bilirubin 16.9 H* (0.2-1.3) mg/dL AST 137 H (14-36) U/L Alkaline Phosphatase 150 H (38-126) U/L Total Protein 5.7 L (6.3-8.2) g/dL Albumin 2.3 L (3.5-5.0) g/dL Lipase 472 H (23-300) U/L 10/18/22 10/18/22 10/18/22 Range/Units 05:23 09:24 12:04 WBC (3.8-10.6) k/uL RBC (3.80-5.40) m/uL Hgb (11.4-16.0) gm/dL Hct (34.0-46.0) % MCV (80.0-100.0) fL MCH (25.0-35.0) pg RDW (11.5-15.5) % Plt Count (150-450) k/uL Neutrophils # (1.3-7.7) k/uL Macrocytosis PT (9.0-12.0) sec INR (<1.2) APTT (22.0-30.0) sec D-Dimer (<0.60) mg/L FEU ABG O2 Saturation 98.6 H (94-97) % ABG Lactic Acid (0.5-1.6) mmol/L Sodium (137-145) mmol/L Carbon Dioxide (22-30) mmol/L BUN (7-17) mg/dL Creatinine (0.52-1.04) mg/dL Glucose (74-99) mg/dL POC Glucose (mg/dL) 122 H (70-110) mg/dL Phosphorus 8.2 H (2.5-4.5) mg/dL Total Bilirubin (0.2-1.3) mg/dL AST (14-36) U/L Alkaline Phosphatase (38-126) U/L Total Protein (6.3-8.2) g/dL Albumin (3.5-5.0) g/dL Lipase (23-300) U/L Microbiology - Last 24 Hours (Table) 10/12/22 15:46 Blood Culture - Preliminary Blood No Growth after 120 hours Assessment and Plan (1) Sepsis Current Visit: Yes Status: Acute Code(s): A41.9 - SEPSIS, UNSPECIFIED ORGANISM SNOMED Code(s): 20101718 Plan: 1patient was in the hospital with sepsis/septic shock in this patient who did have a fever hypotension elevated lactic acid source could be abdominal , did have elevated liver enzyme however ultrasound of the abdomen did not show any evidence of cholecystitis, patient did have component of pneumonia 2-patient with cephalexin allergy that would limit the number of antibiotics safe to use, per discussion with the pharmacist not able to use Unasyn or Zosyn 3-the patient did have MRSA pneumonia and did have worsening of the kidney function and high vancomycin trough patient was switched to Zyvox 4patient also have some E. coli bacteremia and also growing Clostridium perfringens likely abdominal source , patient currently on meropenem 5patient remains to be afebrile, the patient Repeat Blood culture negative, patient noticed have slight worsening of the white count however with a possible plan for withdrawal of care and hospice we will hold on adding any further workup at this point for now continue with the meropenem and Zyvox which can be discontinued once patient is switched to hospice Time with Patient: Less than 30
[2022-10-18 15:05] LABS: Anisocytosis Marked; HCT 20.8 % (34.0-46.0); MCH 36.7 pg (25.0-35.0); MCHC 33.2 g/dL (31.0-37.0); MCV 110.6 fL (80.0-100.0); Macrocytosis Marked; Mean Platelet Volume 11.1; RBC 1.88 m/uL (3.80-5.40); RDW 24.9 % (11.5-15.5); WBC 17.7 k/uL (3.8-10.6)
[2022-10-18 15:11] LABS: Albumin 2.3 g/dL (3.5-5.0); Calcium 8.7 mg/dL (8.4-10.2); Potassium 4.4 mmol/L (3.5-5.1); Total Protein 5.6 g/dL (6.3-8.2)
[2022-10-18 15:29] LABS: HGB 6.9 gm/dL (11.4-16.0); Platelet Count 34 k/uL (150-450)
[2022-10-18 15:46] LABS: INR 1.4 (<1.2); Prothrombin Time 14.3 sec (9.0-12.0)
[2022-10-18 15:52] LABS: Band Neutrophils % 2 %; Eosinophils # (M) 0.35 k/uL (0-0.7); Lymphocytes # (M) 2.12 k/uL (1.0-4.8); Metamyelocytes # (M) 0.18 k/uL (0); Metamyelocytes % 1 %; Monocytes # (M) 0.71 k/uL (0-1.0); Myelocytes # (M) 0.35 k/uL (0); Myelocytes % 2 %; Neutrophils % (M) 80 %; Nucleated Red Blood Cells 0 /100 WBC (0-0); Total Cells Counted 200
[2022-10-18 15:55] LABS: Polychromasia Present
[2022-10-18 15:56] LABS: Toxic Granulation Present
[2022-10-18 16:30] LABS: Total Bilirubin 16.5 mg/dL (0.2-1.3)
[2022-10-18 16:32] LABS: Appearance,Urine Cloudy (Clear); Bacteria,Urine Rare /hpf; Bilirubin,Urine 3+ (Negative); Blood,Urine Moderate (Negative); Budding Yeast,Urine Few /hpf; Color,Urine Dark Brown; Glucose,Urine (UA) Negative (Negative); Ketones,Urine Negative (Negative); Leukocyte Esterase,Urine Small (Negative); Mucus,Urine Rare /hpf; Nitrite,Urine Negative (Negative); PH, Urine 5.5 (5.0-8.0); Protein,Urine 1+ (Negative); RBC,Urine 12 /hpf (0-5); Squamous Epithelial Cell,Urine 1 /hpf (0-4); Urobilinogen,Urine >12.0 mg/dL (<2.0); WBC,Urine 11 /hpf (0-5)
[2022-10-18 16:41] LABS: Phosphorus 8.5 mg/dL (2.5-4.5)
--- NOTE | 2022-10-18 18:06 | CA ---
Transthoracic Echo Report Name: Margie Wilson Age: 42 Gender: F : 1980 Exam Date: 10/18/2022 13:35 Exam Location: [facility] Ht (in): 65 Wt (lb): 180 Ordering Physician: Cee Owens Attending/Referring Phys: Supervisor [employer] Maribel Weber RDCS Procedure CPT: Indications: assess heart function Cardiac Hx: Technical Quality: Good Contrast 1: Total Dose (mL): Contrast 2: Total Dose (mL): MEASUREMENTS (Male / Female) Normal Values 2D ECHO LV Diastolic Diameter PLAX 4.3 cm 4.2 - 5.9 / 3.9 - 5.3 cm LV Systolic Diameter PLAX 2.9 cm IVS Diastolic Thickness 0.9 cm 0.6 - 1.0 / 0.6 - 0.9 cm LVPW Diastolic Thickness 1.0 cm 0.6 - 1.0 / 0.6 - 0.9 cm LV Relative Wall Thickness 0.4 RV Internal Dim ED PLAX 3.2 cm LA Systolic Diameter LX 3.5 cm 3.0 - 4.0 / 2.7 - 3.8 cm LV Diastolic Volume MOD BP 62.3 cm??? 67 - 155 / 56 - 104 cm??? LV Systolic Volume MOD BP 20.3 cm??? 22 - 58 / 19 - 49 cm??? LV Ejection Fraction MOD BP 67.4 % >= 55 % LV Diastolic Volume MOD 4C 72.4 cm??? LV Systolic Volume MOD 4C 27.1 cm??? LV Ejection Fraction MOD 4C 62.6 % LV Diastolic Length 4C 7.2 cm LV Systolic Length 4C 6.4 cm LV Diastolic Volume MOD 2C 48.8 cm??? LV Systolic Volume MOD 2C 14.0 cm??? LV Ejection Fraction MOD 2C 71.3 % LV Diastolic Length 2C 6.3 cm LV Systolic Length 2C 5.9 cm LA Volume 46.9 cm??? 18 - 58 / 22 - 52 cm??? M-MODE Aortic Root Diameter MM 2.6 cm MV E Point Septal Separation 0.4 cm DOPPLER AV Peak Velocity 234.1 cm/s AV Peak Gradient 21.9 mmHg AV Mean Velocity 137.2 cm/s AV Mean Gradient 9.3 mmHg AV Velocity Time Integral 33.9 cm MV Peak Velocity 158.4 cm/s MV Peak Gradient 10.0 mmHg MV Mean Velocity 87.7 cm/s MV Mean Gradient 3.5 mmHg MV Velocity Time Integral 25.4 cm MV Area PHT 4.1 cm??? Mitral E Point Velocity 121.2 cm/s Mitral A Point Velocity 86.2 cm/s Mitral E to A Ratio 1.4 MV Deceleration Time 212.0 ms MV E' Velocity 15.4 cm/s Mitral E to MV E' Ratio 7.9 TR Peak Velocity 247.9 cm/s TR Peak Gradient 24.6 mmHg Right Ventricular Systolic Press 29.6 mmHg PV Peak Velocity 184.6 cm/s PV Peak Gradient 13.6 mmHg FINDINGS Left Ventricle Left ventricular ejection fraction is estimated at 55-60 %. Left ventricular cavity size normal. Left ventricular wall thickness normal. Normal left ventricular wall motion. Right Ventricle Normal right ventricular size and function. No TR unable to estimate the right ventricular systolic pressure. Right Atrium Normal right atrial size. Left Atrium Normal left atrial size. Mitral Valve Structurally normal mitral valve. No mitral stenosis, regurgitation or prolapse. Aortic Valve Trileaflet aortic valve. No aortic valve stenosis or regurgitation. Tricuspid Valve Structurally normal tricuspid valve. No tricuspid stenosis, regurgitation or prolapse. Pulmonic Valve Structurally normal pulmonic valve. No pulmonic stenosis. No pulmonic regurgitation. Pericardium Normal pericardium. No pericardial effusion. Aorta Normal size aortic root and proximal ascending aorta. CONCLUSIONS Normal LV size and systolic function Previewed by: Dr. Ray Devine MD (Electronically Signed) Final Date: 18 October 2022 18:05
[2022-10-18 18:37] LABS: Glucose,Whole Blood 145 mg/dL (70-110)
--- NOTE | 2022-10-18 19:08 | XR ---
EXAMINATION: XR chest 1V portable DATE AND TIME: 10/18/2022 6:38 PM CLINICAL INDICATION: PHH; gol TECHNIQUE: AP upright portable COMPARISON: 10/18/2022 at 5:04 AM AP portable semiupright FINDINGS: SUPPORT LINES AND CATHETERS: ET tube tip superimposed over the mid trachea. NG tube present, its tip courses over the expected position of the thoracic esophagus and the stomach. EKG leads. LUNG PARENCHYMA: There is diffuse silhouetting of the pulmonary vasculature bilaterally by a fine ret icular pattern of increased attenuation, and groundglass opacity throughout the right upper lobe and much of the left lung parenchyma. Overall lung inflation pattern is similar to the prior study. No ne w pulmonary or pleural processes. MEASUREMENTS: It is noted that the hemidiaphragms are elevated, consistent with relatively low lung i nflation at the moment of x-ray exposure. Given this limitation of lung inflation, the right lung (as visualized) measures 13 cm CC from right apex to the dome of the diaphragm, and the left lung measur es 15 cm CC. The right diaphragm width measures 12 cm, and the left diaphragm width measures 11 cm. T he right costophrenic angle 2 left costophrenic angle measures 26 cm. The aortic knob width measures 2.7 cm. PLEURAL SPACES: The pleural spaces are negative for pneumothorax or pleural effusion. MEDIASTINUM: The cardiac silhouette is not enlarged. The remainder of the mediastinal silhouette is u nremarkable. OTHER: The skeletal structures and soft tissues are negative for acute findings. IMPRESSION: Overall similar lung inflation pattern as seen on the prior study. No new process.
[2022-10-18 19:19] LABS: ABG Base Excess -4.2 mmol/L; ABG HCO3 21 mmol/L (21-25); ABG PCO2 36 mmHg (35-45); ABG PH 7.38 (7.35-7.45); ABG PO2 >400 mmHg (83-108); ABG TCO2 22 mmol/L (19-24)
[2022-10-18 19:21] LABS: Allen Test Performed? no
--- NOTE | 2022-10-18 20:26 | P.PN ---
Subjective Progress Note Date: 10/18/22 This is a 42-year-old female who was recently admitted with bilateral pneumonia, sepsis, alcohol intoxication withdrawal and remains on mechanical ventilation ICU with multiple medical consultations following. Significant other currently working on obtaining guardianship to make decisions and patient is no code currently. Apparently has a guardianship hearing on Saturday and will follow- up after that. Patient currently is afebrile and remains tachycardic and continues on mechanical ventilation with an FiO2 of 30% with a PEEP of 8. Patient is continued on IV antibiotics in the form of meropenem and linezolid and is requiring small dose Levophed and is currently not on any type of sedation and remains unresponsive. Neurology following an EEG is ordered today. Review of systems: Unable to obtain as patient is on mechanical vent and unresponsive 10/16/2022 Patient is seen and evaluated in follow-up maintained in the ICU currently off sedation and continues on mechanical vent with an FiO2 of 30% and PEEP is 5. Per social work who is following, significant other working on guardianship court hearing on Saturday to be able to make the decisions and will continue current treatment plan discussion of possible comfort measures once there is guardianship. Hemoglobin is 7.4 today and there is some vaginal bleeding noted per nursing staff. Repeat labs ordered and pending. Patient's kidney functions worsening and nephrology is following. Patient also continues on antibiotics with infectious disease following and will continue for now. Overall prognosis is poor and guarded. 10/17/2022 Patient continues to be in the ICU on mechanical ventilation with no significant change from previous. Per nursing staff [employer] has been contacted per family and are willing to proceed with this procedure and workup to determine any type of donations can be made. Patient's hemoglobin is above 7 and kidney functions continue to worsen. Significant other of 17 years did obtain mason pacheco and would like to proceed with [employer] life as possible. Patient is currently afebrile maintained on antibiotics with ID following along with other consultations. Nephrology and pulmonary host are following closely. Neurology following as well and patient remains no code. Will follow-up on [employer] of life and continue supportive measures during their investigation. 10/18/2022 Patient is seen in follow-up of currently undergoing the [employer] of life process and awaiting a repeat Covid test along with 2-D echo. Discussing possible bronchoscopy with multiple medical consultations continuing to follow. Patient is maintained on IV antibiotics for bacteremia although most recent blood cultures have been negative. Infectious disease is following closely recommending to continue with current regimen until patient is made comfort measures. Patient's hemoglobin was 6.9 today and will transfuse 1 unit of PRBCs. To continue with supportive care and undergoing gift of life process. Review of systems: Unable to obtain as patient is on mechanical vent Active Medications Albuterol/Ipratropium (Ipratropium-Albuterol 3 Ml Neb) 3 ml INHALATION RT-Q4H [facility] Last Admin: 10/18/22 20:07 Dose: 3 ml Chlorhexidine Gluconate (Chlorhexidine Gluconate 15 Ml Cup) 15 ml MUCOUS MEM BID [facility]UENTES Last Admin: 10/18/22 08:52 Dose: 15 ml Cyanocobalamin (Cyanocobalamin 500 Mcg Tab) 1,000 mcg PO DAILY [facility]UENT[facility] Last Admin: 10/18/22 08:52 Dose: 1,000 mcg Dextrose/Water (Dextrose 50% Syringe 50 Ml) 25 ml IVP PER PROTOCOL PRN; Protocol PRN Reason: Hypoglycemia Last Admin: 10/13/22 07:49 Dose: 25 ml Dextrose/Water (Dextrose 50% Syringe 50 Ml) 50 ml IVP PER PROTOCOL PRN; Protocol PRN Reason: Hypoglycemia Folic Acid (Folic Acid 1 Mg Tab) 1 mg PO DAILY FUENTES Last Admin: 10/18/22 08:52 Dose: 1 mg Linezolid 600 mg/ IV Solution 300 mls @ 150 mls/hr IVPB Q12HR [facility]UENTES; Protocol Last Admin: 10/18/22 08:53 Dose: 150 mls/hr Phytonadione 10 mg/ Sodium (Chloride) 51 mls @ 100 mls/hr IVPB DAILY [facility]UENTES Last Admin: 10/18/22 08:52 Dose: 100 mls/hr Meropenem 1 gm/ Sodium (Chloride) 100 mls @ 33.3 mls/hr IVPB Q8HR [facility]; Protocol Last Admin: 10/18/22 18:13 Dose: 33.3 mls/hr Norepinephrine Bitartrate 4 mg (/ Sodium Chloride) 254 mls @ 8.675 mls/hr IV .Q 24H [facility]; Protocol Last Titration: 10/18/22 19:22 Dose: 0.03 mcg/kg/min, 8.675 mls/hr Insulin Aspart (Insulin Aspart (Novolog) 100 Unit/Ml Vial) 0 unit SQ Q6H [facility]; Protocol Last Admin: 10/18/22 18:36 Dose: Not Given Miscellaneous Information (Potassium Replacement Protocol 1 Each Misc) 1 each MISCELLANE DAILY PRN; Protocol PRN Reason: Per Protocol Naloxone HCl (Naloxone 0.4 Mg/Ml 1 Ml Vial) 0.2 mg IV Q2M PRN PRN Reason: Opioid Reversal Pantoprazole Sodium (Pantoprazole 40 Mg/10 Ml Vial) 40 mg IV BID [facility] Last Admin: 10/18/22 08:52 Dose: 40 mg Rifaximin (Rifaximin 550 Mg Tablet) 550 mg PO BID [facility]; Protocol Stop: 11/08/22 09:01 Last Admin: 10/18/22 08:53 Dose: 550 mg Thiamine HCl (Thiamine 100 Mg Tab) 100 mg PO DAILY [facility] Last Admin: 10/18/22 08:53 Dose: 100 mg PHYSICAL EXAMINATION: GENERAL: The patient is alert and oriented x0, currently on mechanical vent and unresponsive ill-appearing HEENT: Pupils are round and equally reacting to light. EOMI. no scleral icterus. No conjunctival pallor. Normocephalic, atraumatic. No pharyngeal erythema. No thyromegaly. CARDIOVASCULAR: S1 and S2 muffled , tachycardia PULMONARY: diminished breath sounds bilaterally with coarse scattered rhonchi and crackles noted. ABDOMEN: soft. Nontender on exam. -distended, normoactive bowel sounds. No palpable organomegaly. MUSCULOSKELETAL: No joint swelling or deformity. EXTREMITIES: No cyanosis, clubbing, generalized edema noted throughout NEUROLOGICAL: Unable to completely assess as patient is unresponsive and on mechanical ventilation SKIN: No rashes. Jaundice Assessment: Bilateral pneumonia with possible aspiration, with sepsis, present on admission Acute hypoxic respiratory failure secondary to above requiring mechanical ventilation Anemia, thrombocytopenia secondary to alcoholic liver disease alcohol withdrawal syndrome and delirium tremens sinus tachycardia Acute renal failure Cirrhosis of the liver Possible vaginal bleeding Alcoholic hepatitis with chronic liver disease and ascites, cirrhosis of the liver GI prophylaxis DVT prophylaxis No code Plan: Recommend to continue with current medications and management and being followed in the ICU as patient remains on mechanical ventilation. Patient is off all sedation with neurology following as well as multiple other consultations including infectious disease. Most recent blood cultures are negative patient is maintained on IV antibiotics Patient is currently undergoing gift of life process per family request and currently awaiting a 2-D echo along with Covid test and possible bronchoscopy. Hemoglobin is 6.9 today and waiting to receive a unit of PRBCs. Recommend follow-up labs Chest x-ray in the a.m. ue to multiple complex medical issues, prognosis is extremely guarded and poor as well. The impression and plan of care has been dictated by Cee Owens, nurse practitioner as directed. Dr. Bebe MD I have performed a history and examination and MDM of this patient, discussed the same with the dictator, and agree with the dictator's assessment and plan as written ,documented as a scribe. Based on total visit time, I have performed more than 50% of the visit. Any additional findings or plans will be noted. Objective - Vital Signs Vital signs: Vital Signs Temp 97.5 F L 10/18/22 19:44 Pulse 97 10/18/22 20:07 Resp 19 10/18/22 19:44 BP 115/42 10/18/22 19:44 Pulse Ox 94 L 10/18/22 19:44 FiO2 30 10/18/22 20:05 Intake & Output 10/18/22 10/18/22 10/19/22 06:59 18:59 06:59 Intake Total 627.106 785.359 52.832 Output Total 153 115 10 Balance 474.106 670.359 42.832 Weight 82 kg 82 kg Intake: IV 169 133 13 Sodium Chloride 0.9% 1, 130 100 10 000 ml @ 75 mls/hr IV . [id number] FUENTES Rx#:[id number] pressure bag 39 33 3 Intake, IV Titration 68.106 292.359 9.832 Amount Norepinephrine 4 mg In 68.106 292.359 9.832 Sodium Chloride 0.9% 250 ml @ 0.03 MCG/KG/MIN 8. 675 mls/hr IV .Q24H FUENTES Rx#:[id number] Tube Feeding 390 330 30 Blood Product 0 Unit 0 Other 30 Output: Urine 153 115 10 Other: Voiding Method Indwelling Catheter Indwelling Catheter ABP, PAP, CO, CI - Last Documented Arterial Blood Pressure 123/44 - Labs CBC & Chem 7: 10/18/22 14:41 10/18/22 14:41 Labs: Abnormal Lab Results - Last 24 Hours (Table) 10/15/22 10/17/22 10/18/22 Range/Units 08:11 23:59 00:07 WBC (3.8-10.6) k/uL RBC (3.80-5.40) m/uL Hgb (11.4-16.0) gm/dL Hct (34.0-46.0) % MCV (80.0-100.0) fL MCH (25.0-35.0) pg RDW (11.5-15.5) % Plt Count (150-450) k/uL Neutrophils # (1.3-7.7) k/uL Neutrophils # (Manual) (1.3-7.7) k/uL Metamyelocytes # (Man) (0) k/uL Myelocytes # (Manual) (0) k/uL Macrocytosis PT 14.3 H (9.0-12.0) sec INR 1.4 H (<1.2) APTT 33.9 H (22.0-30.0) sec D-Dimer 7.33 H (<0.60) mg/L FEU ABG pO2 (83-108) mmHg ABG O2 Saturation (94-97) % ABG Lactic Acid (0.5-1.6) mmol/L Sodium (137-145) mmol/L Carbon Dioxide (22-30) mmol/L BUN (7-17) mg/dL Creatinine (0.52-1.04) mg/dL Glucose (74-99) mg/dL POC Glucose (mg/dL) 121 H (70-110) mg/dL Phosphorus (2.5-4.5) mg/dL Total Bilirubin (0.2-1.3) mg/dL AST (14-36) U/L Alkaline Phosphatase (38-126) U/L Total Protein (6.3-8.2) g/dL Albumin (3.5-5.0) g/dL Lipase (23-300) U/L Urine Appearance (Clear) Urine Protein (Negative) Urine Blood (Negative) Urine Bilirubin (Negative) Ur Leukocyte Esterase (Negative) Urine RBC (0-5) /hpf Urine WBC (0-5) /hpf Urine WBC Clumps (None) /hpf Urine Bacteria (None) /hpf Urine Mucus (None) /hpf Urine Yeast (Budding) (None) /hpf Crossmatch See Detail Blood Bank Comment Sent to [facility] A Reference Lab Result See BBK REF Reports A 10/18/22 10/18/22 10/18/22 Range/Units 05:10 05:10 05:10 WBC 17.9 H (3.8-10.6) k/uL RBC 1.87 L (3.80-5.40) m/uL Hgb 7.3 L (11.4-16.0) gm/dL Hct 20.3 L (34.0-46.0) % MCV 108.7 H (80.0-100.0) fL MCH 38.9 H (25.0-35.0) pg RDW 25.5 H (11.5-15.5) % Plt Count 33 L (150-450) k/uL Neutrophils # 14.2 H (1.3-7.7) k/uL Neutrophils # (Manual) (1.3-7.7) k/uL Metamyelocytes # (Man) (0) k/uL Myelocytes # (Manual) (0) k/uL Macrocytosis Marked A PT 14.7 H (9.0-12.0) sec INR 1.5 H (<1.2) APTT 33.8 H (22.0-30.0) sec D-Dimer (<0.60) mg/L FEU ABG pO2 (83-108) mmHg ABG O2 Saturation (94-97) % ABG Lactic Acid (0.5-1.6) mmol/L Sodium 135 L (137-145) mmol/L Carbon Dioxide 20 L (22-30) mmol/L BUN 84 H (7-17) mg/dL Creatinine 3.23 H (0.52-1.04) mg/dL Glucose 107 H (74-99) mg/dL POC Glucose (mg/dL) (70-110) mg/dL Phosphorus (2.5-4.5) mg/dL Total Bilirubin 16.9 H* (0.2-1.3) mg/dL AST 137 H (14-36) U/L Alkaline Phosphatase 150 H (38-126) U/L Total Protein 5.7 L (6.3-8.2) g/dL Albumin 2.3 L (3.5-5.0) g/dL Lipase 472 H (23-300) U/L Urine Appearance (Clear) Urine Protein (Negative) Urine Blood (Negative) Urine Bilirubin (Negative) Ur Leukocyte Esterase (Negative) Urine RBC (0-5) /hpf Urine WBC (0-5) /hpf Urine WBC Clumps (None) /hpf Urine Bacteria (None) /hpf Urine Mucus (None) /hpf Urine Yeast (Budding) (None) /hpf Crossmatch Blood Bank Comment Reference Lab Result 10/18/22 10/18/22 10/18/22 Range/Units 05:10 05:23 09:24 WBC (3.8-10.6) k/uL RBC (3.80-5.40) m/uL Hgb (11.4-16.0) gm/dL Hct (34.0-46.0) % MCV (80.0-100.0) fL MCH (25.0-35.0) pg RDW (11.5-15.5) % Plt Count (150-450) k/uL Neutrophils # (1.3-7.7) k/uL Neutrophils # (Manual) (1.3-7.7) k/uL Metamyelocytes # (Man) (0) k/uL Myelocytes # (Manual) (0) k/uL Macrocytosis PT (9.0-12.0) sec INR (<1.2) APTT (22.0-30.0) sec D-Dimer (<0.60) mg/L FEU ABG pO2 (83-108) mmHg ABG O2 Saturation 98.6 H (94-97) % ABG Lactic Acid 1.7 H (0.5-1.6) mmol/L Sodium (137-145) mmol/L Carbon Dioxide (22-30) mmol/L BUN (7-17) mg/dL Creatinine (0.52-1.04) mg/dL Glucose (74-99) mg/dL POC Glucose (mg/dL) (70-110) mg/dL Phosphorus 8.2 H (2.5-4.5) mg/dL Total Bilirubin (0.2-1.3) mg/dL AST (14-36) U/L Alkaline Phosphatase (38-126) U/L Total Protein (6.3-8.2) g/dL Albumin (3.5-5.0) g/dL Lipase (23-300) U/L Urine Appearance (Clear) Urine Protein (Negative) Urine Blood (Negative) Urine Bilirubin (Negative) Ur Leukocyte Esterase (Negative) Urine RBC (0-5) /hpf Urine WBC (0-5) /hpf Urine WBC Clumps (None) /hpf Urine Bacteria (None) /hpf Urine Mucus (None) /hpf Urine Yeast (Budding) (None) /hpf Crossmatch Blood Bank Comment Reference Lab Result 10/18/22 10/18/22 10/18/22 Range/Units 12:04 14:41 14:41 WBC 17.7 H (3.8-10.6) k/uL RBC 1.88 L (3.80-5.40) m/uL Hgb 6.9 L* (11.4-16.0) gm/dL Hct 20.8 L (34.0-46.0) % MCV 110.6 H (80.0-100.0) fL MCH 36.7 H (25.0-35.0) pg RDW 24.9 H (11.5-15.5) % Plt Count 34 L (150-450) k/uL Neutrophils # (1.3-7.7) k/uL Neutrophils # (Manual) 14.50 H (1.3-7.7) k/uL Metamyelocytes # (Man) 0.18 H (0) k/uL Myelocytes # (Manual) 0.35 H (0) k/uL Macrocytosis Marked A PT (9.0-12.0) sec INR (<1.2) APTT (22.0-30.0) sec D-Dimer (<0.60) mg/L FEU ABG pO2 (83-108) mmHg ABG O2 Saturation (94-97) % ABG Lactic Acid (0.5-1.6) mmol/L Sodium 135 L (137-145) mmol/L Carbon Dioxide 20 L (22-30) mmol/L BUN 87 H (7-17) mg/dL Creatinine 3.24 H (0.52-1.04) mg/dL Glucose 107 H (74-99) mg/dL POC Glucose (mg/dL) 122 H (70-110) mg/dL Phosphorus 8.5 H (2.5-4.5) mg/dL Total Bilirubin 16.5 H* (0.2-1.3) mg/dL AST 130 H (14-36) U/L Alkaline Phosphatase 161 H (38-126) U/L Total Protein 5.6 L (6.3-8.2) g/dL Albumin 2.3 L (3.5-5.0) g/dL Lipase 565 H (23-300) U/L Urine Appearance (Clear) Urine Protein (Negative) Urine Blood (Negative) Urine Bilirubin (Negative) Ur Leukocyte Esterase (Negative) Urine RBC (0-5) /hpf Urine WBC (0-5) /hpf Urine WBC Clumps (None) /hpf Urine Bacteria (None) /hpf Urine Mucus (None) /hpf Urine Yeast (Budding) (None) /hpf Crossmatch Blood Bank Comment Reference Lab Result 10/18/22 10/18/22 10/18/22 Range/Units 15:01 15:14 18:35 WBC (3.8-10.6) k/uL RBC (3.80-5.40) m/uL Hgb (11.4-16.0) gm/dL Hct (34.0-46.0) % MCV (80.0-100.0) fL MCH (25.0-35.0) pg RDW (11.5-15.5) % Plt Count (150-450) k/uL Neutrophils # (1.3-7.7) k/uL Neutrophils # (Manual) (1.3-7.7) k/uL Metamyelocytes # (Man) (0) k/uL Myelocytes # (Manual) (0) k/uL Macrocytosis PT 14.3 H (9.0-12.0) sec INR 1.4 H (<1.2) APTT (22.0-30.0) sec D-Dimer (<0.60) mg/L FEU ABG pO2 (83-108) mmHg ABG O2 Saturation (94-97) % ABG Lactic Acid (0.5-1.6) mmol/L Sodium (137-145) mmol/L Carbon Dioxide (22-30) mmol/L BUN (7-17) mg/dL Creatinine (0.52-1.04) mg/dL Glucose (74-99) mg/dL POC Glucose (mg/dL) 145 H (70-110) mg/dL Phosphorus (2.5-4.5) mg/dL Total Bilirubin (0.2-1.3) mg/dL AST (14-36) U/L Alkaline Phosphatase (38-126) U/L Total Protein (6.3-8.2) g/dL Albumin (3.5-5.0) g/dL Lipase (23-300) U/L Urine Appearance Cloudy H (Clear) Urine Protein 1+ H (Negative) Urine Blood Moderate H (Negative) Urine Bilirubin 3+ H (Negative) Ur Leukocyte Esterase Small H (Negative) Urine RBC 12 H (0-5) /hpf Urine WBC 11 H (0-5) /hpf Urine WBC Clumps Few H (None) /hpf Urine Bacteria Rare H (None) /hpf Urine Mucus Rare H (None) /hpf Urine Yeast (Budding) Few H (None) /hpf Crossmatch Blood Bank Comment Reference Lab Result 10/18/22 Range/Units 19:18 WBC (3.8-10.6) k/uL RBC (3.80-5.40) m/uL Hgb (11.4-16.0) gm/dL Hct (34.0-46.0) % MCV (80.0-100.0) fL MCH (25.0-35.0) pg RDW (11.5-15.5) % Plt Count (150-450) k/uL Neutrophils # (1.3-7.7) k/uL Neutrophils # (Manual) (1.3-7.7) k/uL Metamyelocytes # (Man) (0) k/uL Myelocytes # (Manual) (0) k/uL Macrocytosis PT (9.0-12.0) sec INR (<1.2) APTT (22.0-30.0) sec D-Dimer (<0.60) mg/L FEU ABG pO2 >400 H (83-108) mmHg ABG O2 Saturation 100.0 H (94-97) % ABG Lactic Acid (0.5-1.6) mmol/L Sodium (137-145) mmol/L Carbon Dioxide (22-30) mmol/L BUN (7-17) mg/dL Creatinine (0.52-1.04) mg/dL Glucose (74-99) mg/dL POC Glucose (mg/dL) (70-110) mg/dL Phosphorus (2.5-4.5) mg/dL Total Bilirubin (0.2-1.3) mg/dL AST (14-36) U/L Alkaline Phosphatase (38-126) U/L Total Protein (6.3-8.2) g/dL Albumin (3.5-5.0) g/dL Lipase (23-300) U/L Urine Appearance (Clear) Urine Protein (Negative) Urine Blood (Negative) Urine Bilirubin (Negative) Ur Leukocyte Esterase (Negative) Urine RBC (0-5) /hpf Urine WBC (0-5) /hpf Urine WBC Clumps (None) /hpf Urine Bacteria (None) /hpf Urine Mucus (None) /hpf Urine Yeast (Budding) (None) /hpf Crossmatch Blood Bank Comment Reference Lab Result Microbiology - Last 24 Hours (Table) 10/12/22 15:46 Blood Culture - Final Blood No Growth after 144 hours
[2022-10-18 23:46] LABS: Glucose,Whole Blood 129 mg/dL (70-110)
[2022-10-19 00:08] LABS: Anisocytosis Moderate; Basophils # (A) 0.1 k/uL (0-0.2); Basophils % (A) 1 %; Eosinophils # (A) 0.3 k/uL (0-0.7); Eosinophils % (A) 1 %; HCT 24.9 % (34.0-46.0); Lymphocytes # (A) 1.8 k/uL (1.0-4.8); Lymphocytes % (A) 10 %; MCH 36.4 pg (25.0-35.0); MCHC 33.9 g/dL (31.0-37.0); MCV 107.2 fL (80.0-100.0); Mean Platelet Volume 11.2; Monocytes # (A) 0.7 k/uL (0-1.0); Monocytes % (A) 4 %; Neutrophils # (A) 16.1 k/uL (1.3-7.7); Neutrophils % (A) 84 %; RBC 2.32 m/uL (3.80-5.40); WBC 19.2 k/uL (3.8-10.6)
[2022-10-19 00:31] LABS: Albumin 2.3 g/dL (3.5-5.0); Calcium 8.7 mg/dL (8.4-10.2); Potassium 4.1 mmol/L (3.5-5.1); Total Protein 5.7 g/dL (6.3-8.2)
[2022-10-19 00:34] LABS: Total Bilirubin 18.2 mg/dL (0.2-1.3)
[2022-10-19] MEDS: INSULIN ASPART (NovoLOG) 100 UNIT/ML VIAL SQ SCH ×3 (00:49→12:24)
[2022-10-19 01:02] LABS: HGB 8.4 gm/dL (11.4-16.0); INR 1.4 (<1.2); Partial Thromboplastin Time 36.9 sec (22.0-30.0)
[2022-10-19 01:03] LABS: Macrocytosis Marked; Platelet Count 34 k/uL (150-450)
[2022-10-19] MEDS: IPRATROPIUM-ALBUTEROL 3 ML NEB INHALATION SCH ×5 (01:25→16:08)
[2022-10-19] MEDS: MEROPENEM 1 GM in SODIUM CHLORIDE 0.9% 100 ML IVPB SCH ×2 (01:35→08:40)
[2022-10-19 02:04] LABS: ABG Base Excess -4.4 mmol/L; ABG HCO3 21 mmol/L (21-25); ABG PCO2 35 mmHg (35-45); ABG PH 7.38 (7.35-7.45); ABG PO2 388 mmHg (83-108); ABG TCO2 22 mmol/L (19-24); Allen Test Performed? Yes
[2022-10-19 05:20] LABS: Glucose,Whole Blood 114 mg/dL (70-110)
[2022-10-19 05:50] LABS: Anisocytosis Moderate; HCT 24.6 % (34.0-46.0); HGB 8.4 gm/dL (11.4-16.0); MCH 36.5 pg (25.0-35.0); MCHC 34.1 g/dL (31.0-37.0); MCV 106.9 fL (80.0-100.0); Mean Platelet Volume 11.6; Poikilocytosis Slight; RDW 23.2 % (11.5-15.5); WBC 20.3 k/uL (3.8-10.6)
[2022-10-19 05:59] LABS: Albumin 2.3 g/dL (3.5-5.0); Calcium 8.9 mg/dL (8.4-10.2); Phosphorus 8.6 mg/dL (2.5-4.5); Potassium 4.2 mmol/L (3.5-5.1); Total Protein 5.7 g/dL (6.3-8.2)
[2022-10-19 06:13] LABS: ABG Base Excess -4.6 mmol/L; ABG HCO3 21 mmol/L (21-25); ABG PCO2 36 mmHg (35-45); ABG PH 7.37 (7.35-7.45); ABG PO2 364 mmHg (83-108); ABG TCO2 22 mmol/L (19-24); Allen Test Performed? Yes
[2022-10-19 06:33] LABS: Macrocytosis Marked; Platelet Count 34 k/uL (150-450)
[2022-10-19 07:20] LABS: INR 1.4 (<1.2); Prothrombin Time 13.8 sec (9.0-12.0)
--- NOTE | 2022-10-19 07:33 | XR ---
EXAMINATION TYPE: XR chest 1V portable DATE OF EXAM: 10/19/2022 6:26 AM COMPARISON: Chest radiograph from one day prior. TECHNIQUE: XR chest 1V portable Frontal view of the chest. CLINICAL INDICATION:Female, 42 years old with history of mechanical ventilation; FINDINGS: Lungs/Pleura: No pneumothorax or pleural effusion. Increased haziness of lungs in today's exam superi mposed on multifocal pneumonia opacity seen on prior. Pulmonary vascularity: Unremarkable. Heart/mediastinum: Cardiomediastinal silhouette is unremarkable. Musculoskeletal: No acute osseous pathology. Other findings: None Lines/Tubes: Endotracheal tube with distal tip 1.5 cm above the norberto. Nasogastric tube with its distal tip and side-port projecting under the diaphragm. IMPRESSION: Increased diffuse haziness of lungs on today's exam correlate with ventilator settings. Findings coul d represent worsening multifocal pneumonia versus pneumonia with superimposed pulmonary edema versus low lung volumes superimposed on pneumonia.
[2022-10-19] MEDS: PHYTONADIONE 10 MG in SODIUM CHLORIDE 0.9% 50 ML IVPB SCH (08:42)
[2022-10-19] MEDS: THIAMINE 100 MG TAB PO SCH (08:43)
[2022-10-19] MEDS: PANTOPRAZOLE 40 MG/10 ML VIAL IV SCH (08:43)
[2022-10-19] MEDS: LINEZOLID 600 MG in DEXTROSE/WATER 1 300ML.BAG IVPB SCH (08:43)
[2022-10-19] MEDS: CYANOCOBALAMIN 500 MCG TAB PO SCH (08:43)
[2022-10-19] MEDS: RIFAXIMIN 550 MG TABLET PO SCH (08:43)
[2022-10-19] MEDS: FOLIC ACID 1 MG TAB PO SCH (08:43)
[2022-10-19] MEDS: CHLORHEXIDINE GLUCONATE 15 ML CUP MUCOUS MEM SCH (08:43)
[2022-10-19 08:58] VITALS: TEMP 97.5
--- NOTE | 2022-10-19 09:26 | P.PN ---
Subjective This is a 42-year-old female's seen consultation with acute kidney injury secondary to sepsis with multiple bacteria from her blood cultures including E. coli staph and strep. Source is possibly GI as well as pneumonia. She remains intubated currently on 30% FiO2, has been off of all inotropes. Off of all sedation for the last week. Patient has history of severe EtOH abuse. She is jaundiced with bilirubin of 10.4. Urine output at about 10-15 mL per hour. Family is planning comfort care measures today This morning patient grimaces to pain. Objective - Vital Signs Vital signs: Vital Signs Temp 97.5 F L 10/19/22 08:00 Pulse 100 10/19/22 09:00 Resp 21 10/19/22 09:00 BP 110/49 10/19/22 09:00 Pulse Ox 95 10/19/22 09:00 FiO2 30 10/19/22 09:00 Intake & Output 10/18/22 10/19/22 10/19/22 18:59 06:59 18:59 Intake Total 785.359 738.884 26 Output Total 115 161 15 Balance 670.359 577.884 11 Weight 82 kg 82.5 kg Intake: IV 133 169 26 Sodium Chloride 0.9% 1, 100 130 20 000 ml @ 75 mls/hr IV . [id number] [facility] Rx#:[id number] pressure bag 33 39 6 Intake, IV Titration 292.359 109.884 Amount Norepinephrine 4 mg In 292.359 109.884 Sodium Chloride 0.9% 250 ml @ 0.03 MCG/KG/MIN 8. 675 mls/hr IV .Q24H [facility] Rx#:[id number] Tube Feeding 330 150 0 Blood Product 0 310 Rc As-1 Unit 0 310 [id number] Other 30 Output: Urine 115 161 15 Other: Voiding Method Indwelling Catheter Indwelling Catheter Indwelling Catheter ABP, PAP, CO, CI - Last Documented Arterial Blood Pressure 132/43 - Exam Patient is intubated. Has been off of sedation for about 1 week now Response to painful stimuli. Not clear if patient was trying to follow commands. Examination of the heart S1 and S2 Examination lungs bilateral breath sounds are heard Abdomen is soft nontender Exertion lower extremity shows edema 2+ bilaterally - Labs CBC & Chem 7: 10/19/22 05:20 10/19/22 05:20 Labs: Abnormal Lab Results - Last 24 Hours (Table) 10/15/22 10/18/22 10/18/22 Range/Units 08:11 09:24 12:04 WBC (3.8-10.6) k/uL RBC (3.80-5.40) m/uL Hgb (11.4-16.0) gm/dL Hct (34.0-46.0) % MCV (80.0-100.0) fL MCH (25.0-35.0) pg RDW (11.5-15.5) % Plt Count (150-450) k/uL Neutrophils # (1.3-7.7) k/uL Neutrophils # (Manual) (1.3-7.7) k/uL Metamyelocytes # (Man) (0) k/uL Myelocytes # (Manual) (0) k/uL Macrocytosis PT (9.0-12.0) sec INR (<1.2) APTT (22.0-30.0) sec ABG pO2 (83-108) mmHg ABG O2 Saturation (94-97) % Sodium (137-145) mmol/L Carbon Dioxide (22-30) mmol/L BUN (7-17) mg/dL Creatinine (0.52-1.04) mg/dL Glucose (74-99) mg/dL POC Glucose (mg/dL) 122 H (70-110) mg/dL Phosphorus 8.2 H (2.5-4.5) mg/dL Total Bilirubin (0.2-1.3) mg/dL AST (14-36) U/L Alkaline Phosphatase (38-126) U/L Total Protein (6.3-8.2) g/dL Albumin (3.5-5.0) g/dL Lipase (23-300) U/L Urine Appearance (Clear) Urine Protein (Negative) Urine Blood (Negative) Urine Bilirubin (Negative) Ur Leukocyte Esterase (Negative) Urine RBC (0-5) /hpf Urine WBC (0-5) /hpf Urine WBC Clumps (None) /hpf Urine Bacteria (None) /hpf Urine Mucus (None) /hpf Urine Yeast (Budding) (None) /hpf Crossmatch See Detail Blood Bank Comment Sent to [facility] A Reference Lab Result See BBK REF Reports A 10/18/22 10/18/22 10/18/22 Range/Units 14:41 14:41 15:01 WBC 17.7 H (3.8-10.6) k/uL RBC 1.88 L (3.80-5.40) m/uL Hgb 6.9 L* (11.4-16.0) gm/dL Hct 20.8 L (34.0-46.0) % MCV 110.6 H (80.0-100.0) fL MCH 36.7 H (25.0-35.0) pg RDW 24.9 H (11.5-15.5) % Plt Count 34 L (150-450) k/uL Neutrophils # (1.3-7.7) k/uL Neutrophils # (Manual) 14.50 H (1.3-7.7) k/uL Metamyelocytes # (Man) 0.18 H (0) k/uL Myelocytes # (Manual) 0.35 H (0) k/uL Macrocytosis Marked A PT (9.0-12.0) sec INR (<1.2) APTT (22.0-30.0) sec ABG pO2 (83-108) mmHg ABG O2 Saturation (94-97) % Sodium 135 L (137-145) mmol/L Carbon Dioxide 20 L (22-30) mmol/L BUN 87 H (7-17) mg/dL Creatinine 3.24 H (0.52-1.04) mg/dL Glucose 107 H (74-99) mg/dL POC Glucose (mg/dL) (70-110) mg/dL Phosphorus 8.5 H (2.5-4.5) mg/dL Total Bilirubin 16.5 H* (0.2-1.3) mg/dL AST 130 H (14-36) U/L Alkaline Phosphatase 161 H (38-126) U/L Total Protein 5.6 L (6.3-8.2) g/dL Albumin 2.3 L (3.5-5.0) g/dL Lipase 565 H (23-300) U/L Urine Appearance Cloudy H (Clear) Urine Protein 1+ H (Negative) Urine Blood Moderate H (Negative) Urine Bilirubin 3+ H (Negative) Ur Leukocyte Esterase Small H (Negative) Urine RBC 12 H (0-5) /hpf Urine WBC 11 H (0-5) /hpf Urine WBC Clumps Few H (None) /hpf Urine Bacteria Rare H (None) /hpf Urine Mucus Rare H (None) /hpf Urine Yeast (Budding) Few H (None) /hpf Crossmatch Blood Bank Comment Reference Lab Result 10/18/22 10/18/22 10/18/22 Range/Units 15:14 18:35 19:18 WBC (3.8-10.6) k/uL RBC (3.80-5.40) m/uL Hgb (11.4-16.0) gm/dL Hct (34.0-46.0) % MCV (80.0-100.0) fL MCH (25.0-35.0) pg RDW (11.5-15.5) % Plt Count (150-450) k/uL Neutrophils # (1.3-7.7) k/uL Neutrophils # (Manual) (1.3-7.7) k/uL Metamyelocytes # (Man) (0) k/uL Myelocytes # (Manual) (0) k/uL Macrocytosis PT 14.3 H (9.0-12.0) sec INR 1.4 H (<1.2) APTT (22.0-30.0) sec ABG pO2 >400 H (83-108) mmHg ABG O2 Saturation 100.0 H (94-97) % Sodium (137-145) mmol/L Carbon Dioxide (22-30) mmol/L BUN (7-17) mg/dL Creatinine (0.52-1.04) mg/dL Glucose (74-99) mg/dL POC Glucose (mg/dL) 145 H (70-110) mg/dL Phosphorus (2.5-4.5) mg/dL Total Bilirubin (0.2-1.3) mg/dL AST (14-36) U/L Alkaline Phosphatase (38-126) U/L Total Protein (6.3-8.2) g/dL Albumin (3.5-5.0) g/dL Lipase (23-300) U/L Urine Appearance (Clear) Urine Protein (Negative) Urine Blood (Negative) Urine Bilirubin (Negative) Ur Leukocyte Esterase (Negative) Urine RBC (0-5) /hpf Urine WBC (0-5) /hpf Urine WBC Clumps (None) /hpf Urine Bacteria (None) /hpf Urine Mucus (None) /hpf Urine Yeast (Budding) (None) /hpf Crossmatch Blood Bank Comment Reference Lab Result 10/18/22 10/18/22 10/18/22 Range/Units 23:44 23:45 23:45 WBC 19.2 H (3.8-10.6) k/uL RBC 2.32 L (3.80-5.40) m/uL Hgb 8.4 L D (11.4-16.0) gm/dL Hct 24.9 L (34.0-46.0) % MCV 107.2 H (80.0-100.0) fL MCH 36.4 H (25.0-35.0) pg RDW 23.0 H (11.5-15.5) % Plt Count 34 L (150-450) k/uL Neutrophils # 16.1 H (1.3-7.7) k/uL Neutrophils # (Manual) (1.3-7.7) k/uL Metamyelocytes # (Man) (0) k/uL Myelocytes # (Manual) (0) k/uL Macrocytosis Marked A PT 14.0 H (9.0-12.0) sec INR 1.4 H (<1.2) APTT 36.9 H (22.0-30.0) sec ABG pO2 (83-108) mmHg ABG O2 Saturation (94-97) % Sodium (137-145) mmol/L Carbon Dioxide (22-30) mmol/L BUN (7-17) mg/dL Creatinine (0.52-1.04) mg/dL Glucose (74-99) mg/dL POC Glucose (mg/dL) 129 H (70-110) mg/dL Phosphorus (2.5-4.5) mg/dL Total Bilirubin (0.2-1.3) mg/dL AST (14-36) U/L Alkaline Phosphatase (38-126) U/L Total Protein (6.3-8.2) g/dL Albumin (3.5-5.0) g/dL Lipase (23-300) U/L Urine Appearance (Clear) Urine Protein (Negative) Urine Blood (Negative) Urine Bilirubin (Negative) Ur Leukocyte Esterase (Negative) Urine RBC (0-5) /hpf Urine WBC (0-5) /hpf Urine WBC Clumps (None) /hpf Urine Bacteria (None) /hpf Urine Mucus (None) /hpf Urine Yeast (Budding) (None) /hpf Crossmatch Blood Bank Comment Reference Lab Result 10/18/22 10/19/22 10/19/22 Range/Units 23:45 02:00 05:19 WBC (3.8-10.6) k/uL RBC (3.80-5.40) m/uL Hgb (11.4-16.0) gm/dL Hct (34.0-46.0) % MCV (80.0-100.0) fL MCH (25.0-35.0) pg RDW (11.5-15.5) % Plt Count (150-450) k/uL Neutrophils # (1.3-7.7) k/uL Neutrophils # (Manual) (1.3-7.7) k/uL Metamyelocytes # (Man) (0) k/uL Myelocytes # (Manual) (0) k/uL Macrocytosis PT (9.0-12.0) sec INR (<1.2) APTT (22.0-30.0) sec ABG pO2 388 H (83-108) mmHg ABG O2 Saturation 100.0 H (94-97) % Sodium 133 L (137-145) mmol/L Carbon Dioxide 19 L (22-30) mmol/L BUN 91 H (7-17) mg/dL Creatinine 3.27 H (0.52-1.04) mg/dL Glucose 117 H (74-99) mg/dL POC Glucose (mg/dL) 114 H (70-110) mg/dL Phosphorus (2.5-4.5) mg/dL Total Bilirubin 18.2 H* (0.2-1.3) mg/dL AST 132 H (14-36) U/L Alkaline Phosphatase 165 H (38-126) U/L Total Protein 5.7 L (6.3-8.2) g/dL Albumin 2.3 L (3.5-5.0) g/dL Lipase 638 H (23-300) U/L Urine Appearance (Clear) Urine Protein (Negative) Urine Blood (Negative) Urine Bilirubin (Negative) Ur Leukocyte Esterase (Negative) Urine RBC (0-5) /hpf Urine WBC (0-5) /hpf Urine WBC Clumps (None) /hpf Urine Bacteria (None) /hpf Urine Mucus (None) /hpf Urine Yeast (Budding) (None) /hpf Crossmatch Blood Bank Comment Reference Lab Result 10/19/22 10/19/22 10/19/22 Range/Units 05:20 05:20 05:20 WBC 20.3 H (3.8-10.6) k/uL RBC 2.30 L (3.80-5.40) m/uL Hgb 8.4 L (11.4-16.0) gm/dL Hct 24.6 L (34.0-46.0) % MCV 106.9 H (80.0-100.0) fL MCH 36.5 H (25.0-35.0) pg RDW 23.2 H (11.5-15.5) % Plt Count 34 L (150-450) k/uL Neutrophils # (1.3-7.7) k/uL Neutrophils # (Manual) (1.3-7.7) k/uL Metamyelocytes # (Man) (0) k/uL Myelocytes # (Manual) (0) k/uL Macrocytosis Marked A PT 13.8 H (9.0-12.0) sec INR 1.4 H (<1.2) APTT 36.0 H (22.0-30.0) sec ABG pO2 (83-108) mmHg ABG O2 Saturation (94-97) % Sodium 133 L (137-145) mmol/L Carbon Dioxide 20 L (22-30) mmol/L BUN 93 H (7-17) mg/dL Creatinine 3.32 H (0.52-1.04) mg/dL Glucose 106 H (74-99) mg/dL POC Glucose (mg/dL) (70-110) mg/dL Phosphorus 8.6 H (2.5-4.5) mg/dL Total Bilirubin 18.0 H* (0.2-1.3) mg/dL AST 129 H (14-36) U/L Alkaline Phosphatase 183 H (38-126) U/L Total Protein 5.7 L (6.3-8.2) g/dL Albumin 2.3 L (3.5-5.0) g/dL Lipase (23-300) U/L Urine Appearance (Clear) Urine Protein (Negative) Urine Blood (Negative) Urine Bilirubin (Negative) Ur Leukocyte Esterase (Negative) Urine RBC (0-5) /hpf Urine WBC (0-5) /hpf Urine WBC Clumps (None) /hpf Urine Bacteria (None) /hpf Urine Mucus (None) /hpf Urine Yeast (Budding) (None) /hpf Crossmatch Blood Bank Comment Reference Lab Result 10/19/22 Range/Units 06:10 WBC (3.8-10.6) k/uL RBC (3.80-5.40) m/uL Hgb (11.4-16.0) gm/dL Hct (34.0-46.0) % MCV (80.0-100.0) fL MCH (25.0-35.0) pg RDW (11.5-15.5) % Plt Count (150-450) k/uL Neutrophils # (1.3-7.7) k/uL Neutrophils # (Manual) (1.3-7.7) k/uL Metamyelocytes # (Man) (0) k/uL Myelocytes # (Manual) (0) k/uL Macrocytosis PT (9.0-12.0) sec INR (<1.2) APTT (22.0-30.0) sec ABG pO2 364 H (83-108) mmHg ABG O2 Saturation 100.0 H (94-97) % Sodium (137-145) mmol/L Carbon Dioxide (22-30) mmol/L BUN (7-17) mg/dL Creatinine (0.52-1.04) mg/dL Glucose (74-99) mg/dL POC Glucose (mg/dL) (70-110) mg/dL Phosphorus (2.5-4.5) mg/dL Total Bilirubin (0.2-1.3) mg/dL AST (14-36) U/L Alkaline Phosphatase (38-126) U/L Total Protein (6.3-8.2) g/dL Albumin (3.5-5.0) g/dL Lipase (23-300) U/L Urine Appearance (Clear) Urine Protein (Negative) Urine Blood (Negative) Urine Bilirubin (Negative) Ur Leukocyte Esterase (Negative) Urine RBC (0-5) /hpf Urine WBC (0-5) /hpf Urine WBC Clumps (None) /hpf Urine Bacteria (None) /hpf Urine Mucus (None) /hpf Urine Yeast (Budding) (None) /hpf Crossmatch Blood Bank Comment Reference Lab Result Microbiology - Last 24 Hours (Table) 10/12/22 15:46 Blood Culture - Final Blood No Growth after 144 hours Assessment and Plan Assessment: 1. Acute kidney injury secondary to sepsis with E. coli, staph aureus and alpha hemolytic strep growing in the blood cultures dated 10/09/2022 subsequent blood cultures 10/11/2022 is negative . Slightly worsening creatinine and urine output remains minimal. Extremely high vancomycin levels are contributing to acute kidney injury, she is off of vancomycin 2. Mild degree of hypokalemia secondary to GI losses and metabolic alkalosis. 3. History of alcoholic liver disease, total bilirubin is going up to 9.2 > 0. 6. LFTs are improving 4. Hepatic encephalopathy with elevated ammonia levels 5. Mild degree of respiratory and metabolic alkalosis 6. Anemia with hemoglobin at 7.5 today, status post packed RBCs. She had vaginal bleeding. 7. Severe thrombocytopenia worsening likely from alcoholism and sepsis 8. Hypernatremia associated with free water deficit, status post D5W Plan: Continue off of IV fluids Plans for possible comfort care measures today.
[2022-10-19 10:10] LABS: ABG Base Excess -5.5 mmol/L; ABG HCO3 20 mmol/L (21-25); ABG PCO2 36 mmHg (35-45); ABG PH 7.35 (7.35-7.45); ABG PO2 >400 mmHg (83-108); ABG TCO2 21 mmol/L (19-24); Allen Test Performed? Yes
--- NOTE | 2022-10-19 10:43 | P.PN ---
Subjective Progress Note Date: 10/19/22 Principal diagnosis: Respiratory failure. Reevaluated today on 10/11/2022, patient remains in the ICU, intubated and mechanically ventilated. She is now on assist control rate of 24th of volume 400 FiO2 50% PEEP of 8 and a increased the PEEP to 10. ABG showed a pO2 of 59 pCO2 40 pH of 7.33. Patient is receiving a unit of packed RBC this morning for hemoglobin of 6.8. Her renal functioning seems to be deteriorating and worsening creatinine is up to 2.01. Liver enzymes remain elevated. Ammonia level is pending. Nephrology was consulted for her acute kidney injury, diabetes concern is the patient developing acute hepatorenal syndrome. Urine output remains marginal, Lasix was ordered to be given 1. Her IV fluid is Down to KVO, remains on sodium bicarb drip. Patient remains on norepinephrine at 0.12 she is also on Versed 3 mg/h, and propofol at 75 mcg/kg/m. 0.9 normal saline at 75 mL/h this will be cut down to KVO, and Lasix will be given. Chest x-ray is showing worsening in her consolidation in the left lower lobe, and I suspect there may be a component of groundglass appearance suggestive of mild interstitial edema and fluid overload. WBC count is 3.9 hemoglobin 6.8. Electrolytes are abnormal with sodium 145 potassium 2.8 bicarb is 20 BUN is 49 and creatinine 2.0 1 repeat ammonia level today is 89, remains quite elevated, patient is on lactulose and she is also on rifaximin. Reevaluated today on 10/12/2022, patient remains in the ICU intubated and mechanically ventilated. She is on assist control rate of 24-400 FiO2 50% and PEEP of 10 ABG showed a pO2 of 53 pCO2 34 pH of 7.44, hence FiO2 was increased to 50%*of 40%. Chest x-ray is showing improvement in her bilateraldisease especially on the left side. Remains on propofol at 25 mg/kg/m norepinephrine at 0.04 mcg/kg/m vasopressin 0.03 units per minute and bicarb drip which I cut it down to 25 mL per hour. 50 mL per hour. Patient remains on lactulose and ammonia level is down to 46 today. She will be receiving a dose of Lasix 80 mg IV push. I will discontinue propofol since the patient may not require much sedation. Patient is definitely not ready for any form of weaning or extubation at this point. Her platelets were noted to be quite low today, and I'm recommending 2 units of platelets to be given. His sputum came back positive for MRSA, and she remains covered with vancomycin. WBC count today is 5.4 hemoglobin is 8.4. Her platelets are 19,000. Electrolytes are normal except for sodium 145 BUN of 38 creatinine 2.17. Urine output is marginal, and I have recommended another dose of Lasix 80 mg to be given today IV push. Patient was reevaluated today on 10/13/2022, remains in the ICU, intubated and mechanically ventilated, patient is off sedation for the last 24 hours, no purposeful responses, no responses to any deep painful stimuli, she is on assist control rate of 24 volume 400 FiO2 40% PEEP is cut down from 10-8. ABG showed a pO2 of 145 pCO2 32 pH of 7.50. Platelets are low again, 15,017 the patient 2 units of platelets to be given today. We have ordered the bicarb to be discontinued since the bicarb level is normal. No functioning remains borderline about the same compared to yesterday. Patient is again off sedation for the last 24 hours. Chest x-ray continues to show bilateral airspace disease consistent with pneumonia, WBC count is 6.0 hemoglobin is 8.6, basic metabolic profile showed sodium of 146 potassium 3.2 chloride 111 bicarb 25 BUN 46 creatinine 2.44 liver enzymes remain a bit elevated with a total bilirubin of 9.2. Reevaluated today on 10/25/19 patient is sitting in the ICU, intubated and mechanically ventilated. Her ventilator settings were adjusted today, she is now on assist control rate of 18, volume 400 FiO2 40% and PEEP of 8 and her ABG showed a pO2 of 144 pCO2 36 pH of 7.44 hence the patient had FiO2 cut down to 35%. Chest x-ray continues to show diffuse bilateral infiltrates, relatively unchanged. Labs were reviewed she has a sodium 149 potassium 3.2 chloride 114 bicarb is 24 BUN is 55 creatinine 2.40. WBC count is 5.6 hemoglobin 7.2 hematocrit 21.2 platelets are down to 11,000, and the patient is receiving 2 units of platelets today. Patient had an episode of vaginal bleeding yesterday, it was basically a large blood clot coming out of her vaginal area. Patient had a test that came back negative. Patient is getting worse, she developing worsening abdominal distention, worsening bipedal edema, anasarca, ascites, he is also developing worsening neurological status and I'm recommending a CT of the brain to be done today, and a neurological consultation. Antibiotics curran, the patient was seen by infectious disease, and she is now on Rocephin and she is on linezolid/Zyvox. Her IV fluid has been changed to D5W cerebellar are mostly because of her hypernatremia that was noted on the labs today. Patient remains on lactulose, ammonia level is pending today. She is also on rifaximin.. Patient remains off sedation completely. Progress note dated 10/15/2022. The patient is seen today in room 254. She was admitted back on October 08 with mental status changes, aspiration pneumonia, alcoholic liver disease, alcohol withdrawal syndrome, and sepsis. The patient was intubated on the same today, October 08. She remains on the mechanical ventilator, at volume assist control, rate 18, tidal volume 400, FiO2 35%, and PEEP of 8. Blood gases show pO2 of 112, pCO2 37, and a pH 7.43. The FiO2 was turned down to 30%. Currently, she remains on Zyvox and meropenem. The patient's getting norepinephrine at 7 mcg/m, D5W at 50 mL an hour, and propofol has been of convalescent October 12. She's getting vital high protein at 5 mL an hour. Dietary yet to see her. White count 8.1, hemoglobin 6.6, hematocrit 19.9, and platelet count 14,000. PT 15.6 INR 1.6. Sodium 147, potassium 4, chlorides 112, CO2 26, BUN 62, and creatinine 2.56. AST is 165 ALT 36. Albumin is 2.2. Blood cultures are positive for Eubacterium, Escherichia coli, MRSA, and alpha-hemolytic streptococci. There were also positive for Clostridium perfringens. Chest x- ray shows an improving pattern, particularly to the left upper and right perihilar infiltrates. Progress note dated 10/16/2022. 42-year-old female seen again in room 254. She was admitted back on October 08 with mental status changes, aspiration pneumonia, alcoholic liver disease, alcohol withdrawal syndrome, and sepsis. The patient was intubated for respiratory failure on October 08. She remains on mechanical ventilator. She is on volume assist control, rate 18, tidal volume 400, FiO2 30%, PEEP of 8. Arterial blood gases show pO2 of 87, pCO2 39, and a pH is 7.40. Patient is on D5W at 50 mL an hour, norepinephrine at 2.4 mcg/m, saline at KVO, and Nepro at 30 mL an hour, which is goal. She's also getting free water flushes. Her antibiotics including Zyvox, and meropenem. White count 8.3, hemoglobin 7.4, hematocrit 21.6, and platelet count 21,000. Sodium 141, potassium 3.9, chlorides 107, CO2 24, BUN 71, creatinine 2.84. Blood cultures were reevaluated. She has multiple positive blood cultures. Chest x-ray from today is compared to x-rays done the day before, and are unchanged. The patient's EEG shows severe encephalopathy, with background slowing, but no focal slowing or seizure activity on the EEG. Progress note dated 10/17/2022. 42-year-old female seen again in room 254. She was admitted on October 08 with mental status changes, aspiration pneumonia, alcoholic liver disease and liver f ailure, alcohol withdrawal syndrome, and sepsis. The patient was intubated for respiratory failure on the day of admission. She remains on mechanical ventilator. She is on volume assist control, rate 18, tidal volume 400, FiO2 30%, PEEP of 8. Blood gases show pO2 of 93, pCO2 38, and a pH is 7.39. The patient's getting D5W at 50 mL an hour, norepinephrine at about a micrograms per minute, and Nepro tube feeds, at 30 mL an hour, which is goal. White count is 10, hemoglobin 7.5, hematocrit 21.9, and platelet count 24,000. Sodium 137, potassium 3.8, chlorides 102, CO2 22, anion gap 13, BUN 76, creatinine 2.94. Calcium is 8.3. Blood cultures were positive for Escherichia coli, methicillin- resistant staph aureus, alphahemolytic streptococci, and Clostridium perfringens. In addition, blood cultures are positive for Eubacterium lentum. The patient remains on Zyvox and meropenem. The patient's significant other was going to get power of banking attorney, and possibly move towards comfort measures. [facility] has been called. Chest x-ray today is largely unchanged. Progress note dated 10/18/2022. 42-year-old female seen again in room 254. She's currently being followed by [facility]. The patient remains on the mechanical ventilator. He is on volume assist control, rate 18, tidal volume 400, FiO2 30%, and PEEP of 8. Arterial blood gases show pO2 101, pCO2 36, pH is 7.4. The patient is receiving saline at KVO, norepinephrine at 4 mcg/m, and tube feedings with Nepro at 30 mL an hour, which is goal. The patient is receiving meropenem and Zyvox. The transplant team may wish for us to do bronchoscopy. They have not indicated that as yet. White count 17.9, hemoglobin 7.3, hematocrit 20.3, and platelet count 33,000. Lactic acid was 1.7. Sodium 135, potassium 4.5, chlorides 103, CO2 20, BUN 84, and creatinine 3.23. Bilirubin is now up to 16.9. N-terminal proBNP is 1690. Lipase is 472. Computed tomography scan of the chest abdomen and pelvis shows scattered infiltrates, thickening involving the stomach wall and bowel, and colon, and diffuse anasarca and ascites. Progress note dated 10/19/2022. 42-year-old female seen today in room 254. The patient will have her organs harvested today, at 3 PM. He is on mechanical ventilator. She is on volume assist control, rate 18, tidal volume 400, FiO2 30%, and PEEP of 8. Blood gases show pO2 of 364, pCO2 36, pH is 7.37. This was on 100%. 2 feedings are currently off. She's getting saline at 10 mL an hour. She remains on norepinephrine at 4 mcg/m. White count 20.3, hemoglobin 8.4, hematocrit 24.6, and platelet count was 34,000. PT 13.8, INR 1.4, and PTT is 36. Sodium 133, potassium 4.2, chlorides 102, CO2 20, anion gap normal. BUN 93, and creatinine 3.32. Bilirubin is 18. AST 129. Chest x-ray shows diffuse bilateral he's he lung toro. This could be consistent with pneumonia, and/or pulmonary edema. Objective - Vital Signs Vital signs: Vital Signs Temp 97.5 F L 10/19/22 08:00 Pulse 98 10/19/22 10:15 Resp 21 10/19/22 10:15 BP 107/53 10/19/22 10:15 Pulse Ox 94 L 10/19/22 10:15 FiO2 30 10/19/22 10:15 Intake & Output 10/18/22 10/19/22 10/19/22 18:59 06:59 18:59 Intake Total 785.359 738.884 40 Output Total 115 161 25 Balance 670.359 577.884 15 Weight 82 kg 82.5 kg Intake: IV 133 169 39 Sodium Chloride 0.9% 1, 100 130 30 000 ml @ 75 mls/hr IV . [id number] FUENTES Rx#:[id number] pressure bag 33 39 9 Intake, IV Titration 292.359 109.884 Amount Norepinephrine 4 mg In 292.359 109.884 Sodium Chloride 0.9% 250 ml @ 0.03 MCG/KG/MIN 8. 675 mls/hr IV .Q24H FUENTES Rx#:[id number] Tube Feeding 330 150 1 Blood Product 0 310 Rc As-1 Unit 0 310 [id number] Other 30 Output: Urine 115 161 25 Other: Voiding Method Indwelling Catheter Indwelling Catheter Indwelling Catheter ABP, PAP, CO, CI - Last Documented Arterial Blood Pressure 111/35 - Exam No acute distress, off of sedation, with an orally placed endotracheal tube and NG tube. HEENT examination is grossly unremarkable. Sclerae icterus. Neck supple. Full range of motion. No adenopathy thyromegaly or neck vein distention. Cardiovascular examination reveals regular rhythm rate. S1-S2 normal. No S3 or S4. No discernible murmur noted. Heart sounds are distant. Heart rate 98 bpm. Lungs reveal scattered rhonchi throughout. No wheezes or crackles. Breath sounds equal bilaterally. Saturations are 94 %. Abdomen soft bowel sounds are heard. No masses or tenderness. Extremities are intact. No cyanosis clubbing or edema. Skin reveals jaundice. Neurologic examination cannot be adequately assessed at this time. - Labs CBC & Chem 7: 10/19/22 05:20 10/19/22 05:20 Labs: Abnormal Lab Results - Last 24 Hours (Table) 10/15/22 10/18/22 10/18/22 Range/Units 08:11 12:04 14:41 WBC 17.7 H (3.8-10.6) k/uL RBC 1.88 L (3.80-5.40) m/uL Hgb 6.9 L* (11.4-16.0) gm/dL Hct 20.8 L (34.0-46.0) % MCV 110.6 H (80.0-100.0) fL MCH 36.7 H (25.0-35.0) pg RDW 24.9 H (11.5-15.5) % Plt Count 34 L (150-450) k/uL Neutrophils # (1.3-7.7) k/uL Neutrophils # (Manual) 14.50 H (1.3-7.7) k/uL Metamyelocytes # (Man) 0.18 H (0) k/uL Myelocytes # (Manual) 0.35 H (0) k/uL Macrocytosis Marked A PT (9.0-12.0) sec INR (<1.2) APTT (22.0-30.0) sec ABG pO2 (83-108) mmHg ABG HCO3 (21-25) mmol/L ABG O2 Saturation (94-97) % Sodium (137-145) mmol/L Carbon Dioxide (22-30) mmol/L BUN (7-17) mg/dL Creatinine (0.52-1.04) mg/dL Glucose (74-99) mg/dL POC Glucose (mg/dL) 122 H (70-110) mg/dL Phosphorus (2.5-4.5) mg/dL Total Bilirubin (0.2-1.3) mg/dL AST (14-36) U/L Alkaline Phosphatase (38-126) U/L Total Protein (6.3-8.2) g/dL Albumin (3.5-5.0) g/dL Lipase (23-300) U/L Urine Appearance (Clear) Urine Protein (Negative) Urine Blood (Negative) Urine Bilirubin (Negative) Ur Leukocyte Esterase (Negative) Urine RBC (0-5) /hpf Urine WBC (0-5) /hpf Urine WBC Clumps (None) /hpf Urine Bacteria (None) /hpf Urine Mucus (None) /hpf Urine Yeast (Budding) (None) /hpf Crossmatch See Detail Blood Bank Comment Sent to [facility] A Reference Lab Result See BBK REF Reports A 10/18/22 10/18/22 10/18/22 Range/Units 14:41 15:01 15:14 WBC (3.8-10.6) k/uL RBC (3.80-5.40) m/uL Hgb (11.4-16.0) gm/dL Hct (34.0-46.0) % MCV (80.0-100.0) fL MCH (25.0-35.0) pg RDW (11.5-15.5) % Plt Count (150-450) k/uL Neutrophils # (1.3-7.7) k/uL Neutrophils # (Manual) (1.3-7.7) k/uL Metamyelocytes # (Man) (0) k/uL Myelocytes # (Manual) (0) k/uL Macrocytosis PT 14.3 H (9.0-12.0) sec INR 1.4 H (<1.2) APTT (22.0-30.0) sec ABG pO2 (83-108) mmHg ABG HCO3 (21-25) mmol/L ABG O2 Saturation (94-97) % Sodium 135 L (137-145) mmol/L Carbon Dioxide 20 L (22-30) mmol/L BUN 87 H (7-17) mg/dL Creatinine 3.24 H (0.52-1.04) mg/dL Glucose 107 H (74-99) mg/dL POC Glucose (mg/dL) (70-110) mg/dL Phosphorus 8.5 H (2.5-4.5) mg/dL Total Bilirubin 16.5 H* (0.2-1.3) mg/dL AST 130 H (14-36) U/L Alkaline Phosphatase 161 H (38-126) U/L Total Protein 5.6 L (6.3-8.2) g/dL Albumin 2.3 L (3.5-5.0) g/dL Lipase 565 H (23-300) U/L Urine Appearance Cloudy H (Clear) Urine Protein 1+ H (Negative) Urine Blood Moderate H (Negative) Urine Bilirubin 3+ H (Negative) Ur Leukocyte Esterase Small H (Negative) Urine RBC 12 H (0-5) /hpf Urine WBC 11 H (0-5) /hpf Urine WBC Clumps Few H (None) /hpf Urine Bacteria Rare H (None) /hpf Urine Mucus Rare H (None) /hpf Urine Yeast (Budding) Few H (None) /hpf Crossmatch Blood Bank Comment Reference Lab Result 10/18/22 10/18/22 10/18/22 Range/Units 18:35 19:18 23:44 WBC (3.8-10.6) k/uL RBC (3.80-5.40) m/uL Hgb (11.4-16.0) gm/dL Hct (34.0-46.0) % MCV (80.0-100.0) fL MCH (25.0-35.0) pg RDW (11.5-15.5) % Plt Count (150-450) k/uL Neutrophils # (1.3-7.7) k/uL Neutrophils # (Manual) (1.3-7.7) k/uL Metamyelocytes # (Man) (0) k/uL Myelocytes # (Manual) (0) k/uL Macrocytosis PT (9.0-12.0) sec INR (<1.2) APTT (22.0-30.0) sec ABG pO2 >400 H (83-108) mmHg ABG HCO3 (21-25) mmol/L ABG O2 Saturation 100.0 H (94-97) % Sodium (137-145) mmol/L Carbon Dioxide (22-30) mmol/L BUN (7-17) mg/dL Creatinine (0.52-1.04) mg/dL Glucose (74-99) mg/dL POC Glucose (mg/dL) 145 H 129 H (70-110) mg/dL Phosphorus (2.5-4.5) mg/dL Total Bilirubin (0.2-1.3) mg/dL AST (14-36) U/L Alkaline Phosphatase (38-126) U/L Total Protein (6.3-8.2) g/dL Albumin (3.5-5.0) g/dL Lipase (23-300) U/L Urine Appearance (Clear) Urine Protein (Negative) Urine Blood (Negative) Urine Bilirubin (Negative) Ur Leukocyte Esterase (Negative) Urine RBC (0-5) /hpf Urine WBC (0-5) /hpf Urine WBC Clumps (None) /hpf Urine Bacteria (None) /hpf Urine Mucus (None) /hpf Urine Yeast (Budding) (None) /hpf Crossmatch Blood Bank Comment Reference Lab Result 10/18/22 10/18/22 10/18/22 Range/Units 23:45 23:45 23:45 WBC 19.2 H (3.8-10.6) k/uL RBC 2.32 L (3.80-5.40) m/uL Hgb 8.4 L D (11.4-16.0) gm/dL Hct 24.9 L (34.0-46.0) % MCV 107.2 H (80.0-100.0) fL MCH 36.4 H (25.0-35.0) pg RDW 23.0 H (11.5-15.5) % Plt Count 34 L (150-450) k/uL Neutrophils # 16.1 H (1.3-7.7) k/uL Neutrophils # (Manual) (1.3-7.7) k/uL Metamyelocytes # (Man) (0) k/uL Myelocytes # (Manual) (0) k/uL Macrocytosis Marked A PT 14.0 H (9.0-12.0) sec INR 1.4 H (<1.2) APTT 36.9 H (22.0-30.0) sec ABG pO2 (83-108) mmHg ABG HCO3 (21-25) mmol/L ABG O2 Saturation (94-97) % Sodium 133 L (137-145) mmol/L Carbon Dioxide 19 L (22-30) mmol/L BUN 91 H (7-17) mg/dL Creatinine 3.27 H (0.52-1.04) mg/dL Glucose 117 H (74-99) mg/dL POC Glucose (mg/dL) (70-110) mg/dL Phosphorus (2.5-4.5) mg/dL Total Bilirubin 18.2 H* (0.2-1.3) mg/dL AST 132 H (14-36) U/L Alkaline Phosphatase 165 H (38-126) U/L Total Protein 5.7 L (6.3-8.2) g/dL Albumin 2.3 L (3.5-5.0) g/dL Lipase 638 H (23-300) U/L Urine Appearance (Clear) Urine Protein (Negative) Urine Blood (Negative) Urine Bilirubin (Negative) Ur Leukocyte Esterase (Negative) Urine RBC (0-5) /hpf Urine WBC (0-5) /hpf Urine WBC Clumps (None) /hpf Urine Bacteria (None) /hpf Urine Mucus (None) /hpf Urine Yeast (Budding) (None) /hpf Crossmatch Blood Bank Comment Reference Lab Result 10/19/22 10/19/22 10/19/22 Range/Units 02:00 05:19 05:20 WBC 20.3 H (3.8-10.6) k/uL RBC 2.30 L (3.80-5.40) m/uL Hgb 8.4 L (11.4-16.0) gm/dL Hct 24.6 L (34.0-46.0) % MCV 106.9 H (80.0-100.0) fL MCH 36.5 H (25.0-35.0) pg RDW 23.2 H (11.5-15.5) % Plt Count 34 L (150-450) k/uL Neutrophils # (1.3-7.7) k/uL Neutrophils # (Manual) (1.3-7.7) k/uL Metamyelocytes # (Man) (0) k/uL Myelocytes # (Manual) (0) k/uL Macrocytosis Marked A PT (9.0-12.0) sec INR (<1.2) APTT (22.0-30.0) sec ABG pO2 388 H (83-108) mmHg ABG HCO3 (21-25) mmol/L ABG O2 Saturation 100.0 H (94-97) % Sodium (137-145) mmol/L Carbon Dioxide (22-30) mmol/L BUN (7-17) mg/dL Creatinine (0.52-1.04) mg/dL Glucose (74-99) mg/dL POC Glucose (mg/dL) 114 H (70-110) mg/dL Phosphorus (2.5-4.5) mg/dL Total Bilirubin (0.2-1.3) mg/dL AST (14-36) U/L Alkaline Phosphatase (38-126) U/L Total Protein (6.3-8.2) g/dL Albumin (3.5-5.0) g/dL Lipase (23-300) U/L Urine Appearance (Clear) Urine Protein (Negative) Urine Blood (Negative) Urine Bilirubin (Negative) Ur Leukocyte Esterase (Negative) Urine RBC (0-5) /hpf Urine WBC (0-5) /hpf Urine WBC Clumps (None) /hpf Urine Bacteria (None) /hpf Urine Mucus (None) /hpf Urine Yeast (Budding) (None) /hpf Crossmatch Blood Bank Comment Reference Lab Result 10/19/22 10/19/22 10/19/22 Range/Units 05:20 05:20 06:10 WBC (3.8-10.6) k/uL RBC (3.80-5.40) m/uL Hgb (11.4-16.0) gm/dL Hct (34.0-46.0) % MCV (80.0-100.0) fL MCH (25.0-35.0) pg RDW (11.5-15.5) % Plt Count (150-450) k/uL Neutrophils # (1.3-7.7) k/uL Neutrophils # (Manual) (1.3-7.7) k/uL Metamyelocytes # (Man) (0) k/uL Myelocytes # (Manual) (0) k/uL Macrocytosis PT 13.8 H (9.0-12.0) sec INR 1.4 H (<1.2) APTT 36.0 H (22.0-30.0) sec ABG pO2 364 H (83-108) mmHg ABG HCO3 (21-25) mmol/L ABG O2 Saturation 100.0 H (94-97) % Sodium 133 L (137-145) mmol/L Carbon Dioxide 20 L (22-30) mmol/L BUN 93 H (7-17) mg/dL Creatinine 3.32 H (0.52-1.04) mg/dL Glucose 106 H (74-99) mg/dL POC Glucose (mg/dL) (70-110) mg/dL Phosphorus 8.6 H (2.5-4.5) mg/dL Total Bilirubin 18.0 H* (0.2-1.3) mg/dL AST 129 H (14-36) U/L Alkaline Phosphatase 183 H (38-126) U/L Total Protein 5.7 L (6.3-8.2) g/dL Albumin 2.3 L (3.5-5.0) g/dL Lipase (23-300) U/L Urine Appearance (Clear) Urine Protein (Negative) Urine Blood (Negative) Urine Bilirubin (Negative) Ur Leukocyte Esterase (Negative) Urine RBC (0-5) /hpf Urine WBC (0-5) /hpf Urine WBC Clumps (None) /hpf Urine Bacteria (None) /hpf Urine Mucus (None) /hpf Urine Yeast (Budding) (None) /hpf Crossmatch Blood Bank Comment Reference Lab Result 10/19/22 Range/Units 10:07 WBC (3.8-10.6) k/uL RBC (3.80-5.40) m/uL Hgb (11.4-16.0) gm/dL Hct (34.0-46.0) % MCV (80.0-100.0) fL MCH (25.0-35.0) pg RDW (11.5-15.5) % Plt Count (150-450) k/uL Neutrophils # (1.3-7.7) k/uL Neutrophils # (Manual) (1.3-7.7) k/uL Metamyelocytes # (Man) (0) k/uL Myelocytes # (Manual) (0) k/uL Macrocytosis PT (9.0-12.0) sec INR (<1.2) APTT (22.0-30.0) sec ABG pO2 >400 H (83-108) mmHg ABG HCO3 20 L (21-25) mmol/L ABG O2 Saturation 100.0 H (94-97) % Sodium (137-145) mmol/L Carbon Dioxide (22-30) mmol/L BUN (7-17) mg/dL Creatinine (0.52-1.04) mg/dL Glucose (74-99) mg/dL POC Glucose (mg/dL) (70-110) mg/dL Phosphorus (2.5-4.5) mg/dL Total Bilirubin (0.2-1.3) mg/dL AST (14-36) U/L Alkaline Phosphatase (38-126) U/L Total Protein (6.3-8.2) g/dL Albumin (3.5-5.0) g/dL Lipase (23-300) U/L Urine Appearance (Clear) Urine Protein (Negative) Urine Blood (Negative) Urine Bilirubin (Negative) Ur Leukocyte Esterase (Negative) Urine RBC (0-5) /hpf Urine WBC (0-5) /hpf Urine WBC Clumps (None) /hpf Urine Bacteria (None) /hpf Urine Mucus (None) /hpf Urine Yeast (Budding) (None) /hpf Crossmatch Blood Bank Comment Reference Lab Result Microbiology - Last 24 Hours (Table) 10/12/22 15:46 Blood Culture - Final Blood No Growth after 144 hours Assessment and Plan Assessment: Acute hypoxemic respiratory failure secondary to sepsis/septic shock. S/P intubation and mechanical ventilation on October 08, 2022. Methicillin-resistant staph aureus pneumonia. Acute bacteremia secondary to Escherichia coli, Staphylococcus aureus, and streptococcus, alphahemolytic. Acute metabolic acidosis secondary to lactic acidemia. Acute alcohol withdrawal. History of polysubstance abuse. Hepatic encephalopathy. Alcoholic liver disease with thrombocytopenia. Chronic macrocytic anemia. Liver cirrhosis. Acute kidney injury secondary to ATN. Multi-organ system failure. Plan: Plan dated 10/15/2022. The patient will continue on ventilatory support. She is a DO NOT RESUSCITATE. Apparently her significant other is going to court, on Saturday, to get guardianship, and possibly make this patient a comfort care patient. This seemed to be appropriate. We will continue to follow make recommendations along the way. Labs, x-rays, medications are reviewed. The patient remains on m eropenem and Zyvox. Prognosis is very poor. Plan dated 10/16/2022. The patient remains on the mechanical ventilator. She's been off sedation since October 12. She is not particularly responsive. EEG shows diffuse slowing, consistent with severe metabolic or toxic encephalopathy. The patient remains on norepinephrine at 2.4 mcg/m. She remains on Zyvox and meropenem. The patient overall prognosis is very poor. Her significant other is attempting to get guardianship, and would wish to proceed to comfort care. The hearing and the cord is tomorrow. We will continue to follow and make recommendations along the way. Plan dated 10/17/2022. The patient remains on the mechanical ventilator. She's been off of all sedation since October 12. She is very poorly are nonresponsive. EEG showed d iffuse slowing, consistent with severe metabolic or toxic encephalopathy. The patient's on a very small amount of norepinephrine. She remains on Zyvox and meropenem. Overall prognosis remains very poor. The plan is apparently to move towards comfort measures. [facility] has been called. Plan dated 10/18/2022. The patient is currently being evaluated by [facility] [place], for organ donation. T he patient is on a dose of norepinephrine, at 4 mcg/m. She remains on the mechanical ventilator. Her bilirubin level is now nearly 17. Labs, x-rays, and medications are reviewed. She remains on Zyvox and meropenem. The transplant team, may wish for us to do a bronchoscopy on this patient. We will await their recommendation. Prognosis is obviously very poor. The patient is a DO NOT RESUSCITATE patient. Plan dated 10/19/2022. The patient will have her organs harvested at 3 PM today. The patient is currently in the ICU, on the ventilator. The patient is receiving a small amount of norepinephrine at 4 mcg/m. Tube feedings are on hold. Labs, x-rays, and medications are reviewed. Prognosis is obviously very poor. The patient is a gift of life patient. We will continue to follow. No bronchoscopy was requested. The patient is a DO NOT RESUSCITATE patient. Time with Patient: Greater than 30
[2022-10-19 12:08] LABS: Glucose,Whole Blood 108 mg/dL (70-110)
[2022-10-19 12:25] LABS: Anisocytosis Moderate; HCT 23.9 % (34.0-46.0); HGB 8.2 gm/dL (11.4-16.0); MCHC 34.5 g/dL (31.0-37.0); MCV 107.3 fL (80.0-100.0); Macrocytosis Marked; Mean Platelet Volume 11.6; Poikilocytosis Slight; RBC 2.22 m/uL (3.80-5.40); RDW 23.1 % (11.5-15.5); WBC 20.2 k/uL (3.8-10.6)
[2022-10-19 12:28] LABS: Appearance,Urine Cloudy (Clear); Bacteria,Urine Occasional /hpf; Bilirubin,Urine 1+ (Negative); Blood,Urine Small (Negative); Budding Yeast,Urine Few /hpf; Color,Urine Dark Brown; Glucose,Urine (UA) Negative (Negative); Hyaline Casts,Urine 13 /lpf (0-2); Hyphae Yeast, Urine Moderate /hpf; Ketones,Urine Negative (Negative); Leukocyte Esterase,Urine Moderate (Negative); Mucus,Urine Occasional /hpf; Nitrite,Urine Negative (Negative); PH, Urine 5.5 (5.0-8.0); Protein,Urine 1+ (Negative); RBC,Urine 17 /hpf (0-5); Squamous Epithelial Cell,Urine 2 /hpf (0-4); WBC,Urine 14 /hpf (0-5)
[2022-10-19 12:34] LABS: Platelet Count 37 k/uL (150-450)
--- NOTE | 2022-10-19 13:06 | P.PN ---
Subjective Progress Note Date: 10/19/22 Principal diagnosis: Sepsis and bacteremia Patient is a 42-year-old female with a past medical history significant for GERD reflux diabetic steatosis alcohol abuse presenting to the ER for evaluation of mental status changes , patient was noticed to be hypotensive afebrile and evidence of sepsis requiring intubation and admission to the ICU. On today's evaluation had that is 10/19/2022, the patient remains to be afebrile, the patient FiO2 is currently stable at 30% and no significant purulent secretion through the ET and no diarrhea has reported by the nursing staff, patient has been off the pressor as of this morning per the nursing staff Objective - Vital Signs Vital signs: Vital Signs Temp 97.5 F L 10/19/22 12:00 Pulse 97 10/19/22 12:15 Resp 19 10/19/22 12:15 BP 111/56 10/19/22 12:15 Pulse Ox 94 L 10/19/22 12:15 FiO2 30 10/19/22 12:15 Intake & Output 10/18/22 10/19/22 10/19/22 18:59 06:59 18:59 Intake Total 785.359 738.884 87.172 Output Total 115 161 25 Balance 670.359 577.884 62.172 Weight 82 kg 82.5 kg Intake: IV 133 169 65 Sodium Chloride 0.9% 1, 100 130 50 000 ml @ 75 mls/hr IV . [id number] FUENTES Rx#:[id number] pressure bag 33 39 15 Intake, IV Titration 292.359 109.884 22.172 Amount Norepinephrine 4 mg In 292.359 109.884 22.172 Sodium Chloride 0.9% 250 ml @ 0.03 MCG/KG/MIN 8. 675 mls/hr IV .Q24H FUENTES Rx#:[id number] Tube Feeding 330 150 0 Blood Product 0 310 Rc As-1 Unit 0 310 [id number] Other 30 Output: Urine 115 161 25 Other: Voiding Method Indwelling Catheter Indwelling Catheter Indwelling Catheter ABP, PAP, CO, CI - Last Documented Arterial Blood Pressure 121/41 - Exam GENERAL DESCRIPTION: A middle-aged female intubated on the vent RESPIRATORY SYSTEM: Unlabored breathing , decreased breath sounds at bases HEART: S1 S2 regular rate and rhythm , ABDOMEN: Soft , mild distention EXTREMITIES: No edema feet - Labs CBC & Chem 7: 10/19/22 12:07 10/19/22 05:20 Labs: Abnormal Lab Results - Last 24 Hours (Table) 10/15/22 10/18/22 10/18/22 Range/Units 08:11 14:41 14:41 WBC 17.7 H (3.8-10.6) k/uL RBC 1.88 L (3.80-5.40) m/uL Hgb 6.9 L* (11.4-16.0) gm/dL Hct 20.8 L (34.0-46.0) % MCV 110.6 H (80.0-100.0) fL MCH 36.7 H (25.0-35.0) pg RDW 24.9 H (11.5-15.5) % Plt Count 34 L (150-450) k/uL Neutrophils # (1.3-7.7) k/uL Neutrophils # (Manual) 14.50 H (1.3-7.7) k/uL Metamyelocytes # (Man) 0.18 H (0) k/uL Myelocytes # (Manual) 0.35 H (0) k/uL Macrocytosis Marked A PT (9.0-12.0) sec INR (<1.2) APTT (22.0-30.0) sec ABG pO2 (83-108) mmHg ABG HCO3 (21-25) mmol/L ABG O2 Saturation (94-97) % Sodium 135 L (137-145) mmol/L Carbon Dioxide 20 L (22-30) mmol/L BUN 87 H (7-17) mg/dL Creatinine 3.24 H (0.52-1.04) mg/dL Glucose 107 H (74-99) mg/dL POC Glucose (mg/dL) (70-110) mg/dL Phosphorus 8.5 H (2.5-4.5) mg/dL Total Bilirubin 16.5 H* (0.2-1.3) mg/dL AST 130 H (14-36) U/L Alkaline Phosphatase 161 H (38-126) U/L Total Protein 5.6 L (6.3-8.2) g/dL Albumin 2.3 L (3.5-5.0) g/dL Lipase 565 H (23-300) U/L Urine Appearance (Clear) Urine Protein (Negative) Urine Blood (Negative) Urine Bilirubin (Negative) Ur Leukocyte Esterase (Negative) Urine RBC (0-5) /hpf Urine WBC (0-5) /hpf Urine WBC Clumps (None) /hpf Urine Bacteria (None) /hpf Hyaline Casts (0-2) /lpf Urine Mucus (None) /hpf Urine Yeast (Budding) (None) /hpf Crossmatch See Detail Blood Bank Comment Sent to [facility] A Reference Lab Result See BBK REF Reports A 10/18/22 10/18/22 10/18/22 Range/Units 15:01 15:14 18:35 WBC (3.8-10.6) k/uL RBC (3.80-5.40) m/uL Hgb (11.4-16.0) gm/dL Hct (34.0-46.0) % MCV (80.0-100.0) fL MCH (25.0-35.0) pg RDW (11.5-15.5) % Plt Count (150-450) k/uL Neutrophils # (1.3-7.7) k/uL Neutrophils # (Manual) (1.3-7.7) k/uL Metamyelocytes # (Man) (0) k/uL Myelocytes # (Manual) (0) k/uL Macrocytosis PT 14.3 H (9.0-12.0) sec INR 1.4 H (<1.2) APTT (22.0-30.0) sec ABG pO2 (83-108) mmHg ABG HCO3 (21-25) mmol/L ABG O2 Saturation (94-97) % Sodium (137-145) mmol/L Carbon Dioxide (22-30) mmol/L BUN (7-17) mg/dL Creatinine (0.52-1.04) mg/dL Glucose (74-99) mg/dL POC Glucose (mg/dL) 145 H (70-110) mg/dL Phosphorus (2.5-4.5) mg/dL Total Bilirubin (0.2-1.3) mg/dL AST (14-36) U/L Alkaline Phosphatase (38-126) U/L Total Protein (6.3-8.2) g/dL Albumin (3.5-5.0) g/dL Lipase (23-300) U/L Urine Appearance Cloudy H (Clear) Urine Protein 1+ H (Negative) Urine Blood Moderate H (Negative) Urine Bilirubin 3+ H (Negative) Ur Leukocyte Esterase Small H (Negative) Urine RBC 12 H (0-5) /hpf Urine WBC 11 H (0-5) /hpf Urine WBC Clumps Few H (None) /hpf Urine Bacteria Rare H (None) /hpf Hyaline Casts (0-2) /lpf Urine Mucus Rare H (None) /hpf Urine Yeast (Budding) Few H (None) /hpf Crossmatch Blood Bank Comment Reference Lab Result 10/18/22 10/18/22 10/18/22 Range/Units 19:18 23:44 23:45 WBC 19.2 H (3.8-10.6) k/uL RBC 2.32 L (3.80-5.40) m/uL Hgb 8.4 L D (11.4-16.0) gm/dL Hct 24.9 L (34.0-46.0) % MCV 107.2 H (80.0-100.0) fL MCH 36.4 H (25.0-35.0) pg RDW 23.0 H (11.5-15.5) % Plt Count 34 L (150-450) k/uL Neutrophils # 16.1 H (1.3-7.7) k/uL Neutrophils # (Manual) (1.3-7.7) k/uL Metamyelocytes # (Man) (0) k/uL Myelocytes # (Manual) (0) k/uL Macrocytosis Marked A PT (9.0-12.0) sec INR (<1.2) APTT (22.0-30.0) sec ABG pO2 >400 H (83-108) mmHg ABG HCO3 (21-25) mmol/L ABG O2 Saturation 100.0 H (94-97) % Sodium (137-145) mmol/L Carbon Dioxide (22-30) mmol/L BUN (7-17) mg/dL Creatinine (0.52-1.04) mg/dL Glucose (74-99) mg/dL POC Glucose (mg/dL) 129 H (70-110) mg/dL Phosphorus (2.5-4.5) mg/dL Total Bilirubin (0.2-1.3) mg/dL AST (14-36) U/L Alkaline Phosphatase (38-126) U/L Total Protein (6.3-8.2) g/dL Albumin (3.5-5.0) g/dL Lipase (23-300) U/L Urine Appearance (Clear) Urine Protein (Negative) Urine Blood (Negative) Urine Bilirubin (Negative) Ur Leukocyte Esterase (Negative) Urine RBC (0-5) /hpf Urine WBC (0-5) /hpf Urine WBC Clumps (None) /hpf Urine Bacteria (None) /hpf Hyaline Casts (0-2) /lpf Urine Mucus (None) /hpf Urine Yeast (Budding) (None) /hpf Crossmatch Blood Bank Comment Reference Lab Result 10/18/22 10/18/22 10/19/22 Range/Units 23:45 23:45 02:00 WBC (3.8-10.6) k/uL RBC (3.80-5.40) m/uL Hgb (11.4-16.0) gm/dL Hct (34.0-46.0) % MCV (80.0-100.0) fL MCH (25.0-35.0) pg RDW (11.5-15.5) % Plt Count (150-450) k/uL Neutrophils # (1.3-7.7) k/uL Neutrophils # (Manual) (1.3-7.7) k/uL Metamyelocytes # (Man) (0) k/uL Myelocytes # (Manual) (0) k/uL Macrocytosis PT 14.0 H (9.0-12.0) sec INR 1.4 H (<1.2) APTT 36.9 H (22.0-30.0) sec ABG pO2 388 H (83-108) mmHg ABG HCO3 (21-25) mmol/L ABG O2 Saturation 100.0 H (94-97) % Sodium 133 L (137-145) mmol/L Carbon Dioxide 19 L (22-30) mmol/L BUN 91 H (7-17) mg/dL Creatinine 3.27 H (0.52-1.04) mg/dL Glucose 117 H (74-99) mg/dL POC Glucose (mg/dL) (70-110) mg/dL Phosphorus (2.5-4.5) mg/dL Total Bilirubin 18.2 H* (0.2-1.3) mg/dL AST 132 H (14-36) U/L Alkaline Phosphatase 165 H (38-126) U/L Total Protein 5.7 L (6.3-8.2) g/dL Albumin 2.3 L (3.5-5.0) g/dL Lipase 638 H (23-300) U/L Urine Appearance (Clear) Urine Protein (Negative) Urine Blood (Negative) Urine Bilirubin (Negative) Ur Leukocyte Esterase (Negative) Urine RBC (0-5) /hpf Urine WBC (0-5) /hpf Urine WBC Clumps (None) /hpf Urine Bacteria (None) /hpf Hyaline Casts (0-2) /lpf Urine Mucus (None) /hpf Urine Yeast (Budding) (None) /hpf Crossmatch Blood Bank Comment Reference Lab Result 10/19/22 10/19/22 10/19/22 Range/Units 05:19 05:20 05:20 WBC 20.3 H (3.8-10.6) k/uL RBC 2.30 L (3.80-5.40) m/uL Hgb 8.4 L (11.4-16.0) gm/dL Hct 24.6 L (34.0-46.0) % MCV 106.9 H (80.0-100.0) fL MCH 36.5 H (25.0-35.0) pg RDW 23.2 H (11.5-15.5) % Plt Count 34 L (150-450) k/uL Neutrophils # (1.3-7.7) k/uL Neutrophils # (Manual) (1.3-7.7) k/uL Metamyelocytes # (Man) (0) k/uL Myelocytes # (Manual) (0) k/uL Macrocytosis Marked A PT (9.0-12.0) sec INR (<1.2) APTT (22.0-30.0) sec ABG pO2 (83-108) mmHg ABG HCO3 (21-25) mmol/L ABG O2 Saturation (94-97) % Sodium 133 L (137-145) mmol/L Carbon Dioxide 20 L (22-30) mmol/L BUN 93 H (7-17) mg/dL Creatinine 3.32 H (0.52-1.04) mg/dL Glucose 106 H (74-99) mg/dL POC Glucose (mg/dL) 114 H (70-110) mg/dL Phosphorus 8.6 H (2.5-4.5) mg/dL Total Bilirubin 18.0 H* (0.2-1.3) mg/dL AST 129 H (14-36) U/L Alkaline Phosphatase 183 H (38-126) U/L Total Protein 5.7 L (6.3-8.2) g/dL Albumin 2.3 L (3.5-5.0) g/dL Lipase (23-300) U/L Urine Appearance (Clear) Urine Protein (Negative) Urine Blood (Negative) Urine Bilirubin (Negative) Ur Leukocyte Esterase (Negative) Urine RBC (0-5) /hpf Urine WBC (0-5) /hpf Urine WBC Clumps (None) /hpf Urine Bacteria (None) /hpf Hyaline Casts (0-2) /lpf Urine Mucus (None) /hpf Urine Yeast (Budding) (None) /hpf Crossmatch Blood Bank Comment Reference Lab Result 10/19/22 10/19/22 10/19/22 Range/Units 05:20 05:40 06:10 WBC (3.8-10.6) k/uL RBC (3.80-5.40) m/uL Hgb (11.4-16.0) gm/dL Hct (34.0-46.0) % MCV (80.0-100.0) fL MCH (25.0-35.0) pg RDW (11.5-15.5) % Plt Count (150-450) k/uL Neutrophils # (1.3-7.7) k/uL Neutrophils # (Manual) (1.3-7.7) k/uL Metamyelocytes # (Man) (0) k/uL Myelocytes # (Manual) (0) k/uL Macrocytosis PT 13.8 H (9.0-12.0) sec INR 1.4 H (<1.2) APTT 36.0 H (22.0-30.0) sec ABG pO2 364 H (83-108) mmHg ABG HCO3 (21-25) mmol/L ABG O2 Saturation 100.0 H (94-97) % Sodium (137-145) mmol/L Carbon Dioxide (22-30) mmol/L BUN (7-17) mg/dL Creatinine (0.52-1.04) mg/dL Glucose (74-99) mg/dL POC Glucose (mg/dL) (70-110) mg/dL Phosphorus (2.5-4.5) mg/dL Total Bilirubin (0.2-1.3) mg/dL AST (14-36) U/L Alkaline Phosphatase (38-126) U/L Total Protein (6.3-8.2) g/dL Albumin (3.5-5.0) g/dL Lipase (23-300) U/L Urine Appearance Cloudy H (Clear) Urine Protein 1+ H (Negative) Urine Blood Small H (Negative) Urine Bilirubin 1+ H (Negative) Ur Leukocyte Esterase Moderate H (Negative) Urine RBC 17 H (0-5) /hpf Urine WBC 14 H (0-5) /hpf Urine WBC Clumps (None) /hpf Urine Bacteria Occasional H (None) /hpf Hyaline Casts 13 H (0-2) /lpf Urine Mucus Occasional H (None) /hpf Urine Yeast (Budding) Few H (None) /hpf Crossmatch Blood Bank Comment Reference Lab Result 10/19/22 Range/Units 10:07 WBC (3.8-10.6) k/uL RBC (3.80-5.40) m/uL Hgb (11.4-16.0) gm/dL Hct (34.0-46.0) % MCV (80.0-100.0) fL MCH (25.0-35.0) pg RDW (11.5-15.5) % Plt Count (150-450) k/uL Neutrophils # (1.3-7.7) k/uL Neutrophils # (Manual) (1.3-7.7) k/uL Metamyelocytes # (Man) (0) k/uL Myelocytes # (Manual) (0) k/uL Macrocytosis PT (9.0-12.0) sec INR (<1.2) APTT (22.0-30.0) sec ABG pO2 >400 H (83-108) mmHg ABG HCO3 20 L (21-25) mmol/L ABG O2 Saturation 100.0 H (94-97) % Sodium (137-145) mmol/L Carbon Dioxide (22-30) mmol/L BUN (7-17) mg/dL Creatinine (0.52-1.04) mg/dL Glucose (74-99) mg/dL POC Glucose (mg/dL) (70-110) mg/dL Phosphorus (2.5-4.5) mg/dL Total Bilirubin (0.2-1.3) mg/dL AST (14-36) U/L Alkaline Phosphatase (38-126) U/L Total Protein (6.3-8.2) g/dL Albumin (3.5-5.0) g/dL Lipase (23-300) U/L Urine Appearance (Clear) Urine Protein (Negative) Urine Blood (Negative) Urine Bilirubin (Negative) Ur Leukocyte Esterase (Negative) Urine RBC (0-5) /hpf Urine WBC (0-5) /hpf Urine WBC Clumps (None) /hpf Urine Bacteria (None) /hpf Hyaline Casts (0-2) /lpf Urine Mucus (None) /hpf Urine Yeast (Budding) (None) /hpf Crossmatch Blood Bank Comment Reference Lab Result Microbiology - Last 24 Hours (Table) 10/12/22 15:46 Blood Culture - Final Blood No Growth after 144 hours Assessment and Plan (1) Sepsis Current Visit: Yes Status: Acute Code(s): A41.9 - SEPSIS, UNSPECIFIED ORGANISM SNOMED Code(s): 32751416 Plan: 1patient was in the hospital with sepsis/septic shock in this patient who did have a fever hypotension elevated lactic acid source could be abdominal , did have elevated liver enzyme however ultrasound of the abdomen did not show any evidence of cholecystitis, patient did have component of pneumonia 2-patient with cephalexin allergy that would limit the number of antibiotics safe to use, per discussion with the pharmacist not able to use Unasyn or Zosyn 3-the patient did have MRSA pneumonia and did have worsening of the kidney function and high vancomycin trough patient was switched to Zyvox 4patient also have some E. coli bacteremia and also growing Clostridium perfringens likely abdominal source , patient currently on meropenem 5patient remains to be afebrile, the patient Repeat Blood culture negative, patient remains to be afebrile however did have worsening of the white count up to 20,000 with a plan for possible withdrawal of care this afternoon we will hold on adding any further workup at this point discussed with the RN meropenem and Zyvox can be discontinued once patient is switched to hospice/terminal wean Time with Patient: Less than 30
[2022-10-19 13:25] LABS: Albumin 2.2 g/dL (3.5-5.0); Calcium 8.8 mg/dL (8.4-10.2); Potassium 4.2 mmol/L (3.5-5.1); Total Protein 5.6 g/dL (6.3-8.2)
[2022-10-19] MEDS ORDERED: fentaNYL (PF) 50 MCG/ML 2 ML AMP IVP PRN (14:00)
--- NOTE | 2022-10-19 14:05 | P.PN ---
Subjective Progress Note Date: 10/19/22 This is a 42-year-old female who was recently admitted with bilateral pneumonia, sepsis, alcohol intoxication withdrawal and remains on mechanical ventilation ICU with multiple medical consultations following. Significant other currently working on obtaining guardianship to make decisions and patient is no code currently. Apparently has a guardianship hearing on Saturday and will follow- up after that. Patient currently is afebrile and remains tachycardic and continues on mechanical ventilation with an FiO2 of 30% with a PEEP of 8. Patient is continued on IV antibiotics in the form of meropenem and linezolid and is requiring small dose Levophed and is currently not on any type of sedation and remains unresponsive. Neurology following an EEG is ordered today. Review of systems: Unable to obtain as patient is on mechanical vent and unresponsive 10/16/2022 Patient is seen and evaluated in follow-up maintained in the ICU currently off sedation and continues on mechanical vent with an FiO2 of 30% and PEEP is 5. Per social work who is following, significant other working on guardianship court hearing on Saturday to be able to make the decisions and will continue current treatment plan discussion of possible comfort measures once there is guardianship. Hemoglobin is 7.4 today and there is some vaginal bleeding noted per nursing staff. Repeat labs ordered and pending. Patient's kidney functions worsening and nephrology is following. Patient also continues on antibiotics with infectious disease following and will continue for now. Overall prognosis is poor and guarded. 10/17/2022 Patient continues to be in the ICU on mechanical ventilation with no significant change from previous. Per nursing staff [facility] has been contacted per family and are willing to proceed with this procedure and workup to determine any type of donations can be made. Patient's hemoglobin is above 7 and kidney functions continue to worsen. Significant other of 17 years did obtain mason pacheco and would like to proceed with [employer] [facility] [employer] as possible. Patient is currently afebrile maintained on antibiotics with ID following along with other consultations. Nephrology and pulmonary practical nurse clinical coordinator are following closely. Neurology following as well and patient remains no code. Will follow-up on [employer] [facility] [employer] and continue supportive measures during their investigation. 10/18/2022 Patient is seen in follow-up of currently undergoing the [employer] [facility] [employer] process and awaiting a repeat Covid test along with 2-D echo. Discussing possible bronchoscopy with multiple medical consultations continuing to follow. Patient is maintained on IV antibiotics for bacteremia although most recent blood cultures have been negative. Infectious disease is following closely recommending to continue with current regimen until patient is made comfort measures. Patient's hemoglobin was 6.9 today and will transfuse 1 unit of PRBCs. To continue with supportive care and undergoing gift of life process... 10/19/2022 Patient is seen in follow-up with a friend at the bedside continues on mechanica l ventilation and currently undergoing gift of life process. Plan is for harvesting of organs later today. Pulmonary practical nurse clinical coordinator following as well with no plans of bronchoscopy and patient is continued on antibiotics for now. Patient is currently afebrile and prognosis remains extremely poor. WBC remains elevated at 20.2 and hemoglobin is 8.2, sodium is 133 with a potassium of 4.2 kidney functions trending up with a creatinine of 3.34, total bili remains 18. Chest x-ray appears to be worsening with multifocal pneumonia versus pneumonia with superimposed pulmonary edema. Review of systems: Unable to obtain as patient is on mechanical vent Active Medications Albuterol/Ipratropium (Ipratropium-Albuterol 3 Ml Neb) 3 ml INHALATION RT-Q4H [facility] Last Admin: 10/19/22 07:39 Dose: 3 ml Chlorhexidine Gluconate (Chlorhexidine Gluconate 15 Ml Cup) 15 ml MUCOUS MEM BID [facility] Last Admin: 10/19/22 08:43 Dose: 15 ml Cyanocobalamin (Cyanocobalamin 500 Mcg Tab) 1,000 mcg PO DAILY [facility] Last Admin: 10/19/22 08:43 Dose: 1,000 mcg Dextrose/Water (Dextrose 50% Syringe 50 Ml) 25 ml IVP PER PROTOCOL PRN; Protocol PRN Reason: Hypoglycemia Last Admin: 10/13/22 07:49 Dose: 25 ml Dextrose/Water (Dextrose 50% Syringe 50 Ml) 50 ml IVP PER PROTOCOL PRN; Protocol PRN Reason: Hypoglycemia Folic Acid (Folic Acid 1 Mg Tab) 1 mg PO DAILY [facility] Last Admin: 10/19/22 08:43 Dose: 1 mg Linezolid 600 mg/ IV Solution 300 mls @ 150 mls/hr IVPB Q12HR [facility]; Protocol Last Admin: 10/19/22 08:43 Dose: 150 mls/hr Phytonadione 10 mg/ Sodium (Chloride) 51 mls @ 100 mls/hr IVPB DAILY [facility] Last Admin: 10/19/22 08:42 Dose: 100 mls/hr Meropenem 1 gm/ Sodium (Chloride) 100 mls @ 33.3 mls/hr IVPB Q8HR [facility]; Protocol Last Admin: 10/19/22 08:40 Dose: 33.3 mls/hr Norepinephrine Bitartrate 4 mg (/ Sodium Chloride) 254 mls @ 8.675 mls/hr IV .Q24H [facility]; Protocol Last Titration: 10/19/22 06:54 Dose: 0.02 mcg/kg/min, 5.784 mls/hr Insulin Aspart (Insulin Aspart (Novolog) 100 Unit/Ml Vial) 0 unit SQ Q6H [facility]; Protocol Last Admin: 10/19/22 05:50 Dose: Not Given Miscellaneous Information (Potassium Replacement Protocol 1 Each Misc) 1 each MISCELLANE DAILY PRN; Protocol PRN Reason: Per Protocol Naloxone HCl (Naloxone 0.4 Mg/Ml 1 Ml Vial) 0.2 mg IV Q2M PRN PRN Reason: Opioid Reversal Pantoprazole Sodium (Pantoprazole 40 Mg/10 Ml Vial) 40 mg IV BID [facility] Last Admin: 10/19/22 08:43 Dose: 40 mg Rifaximin (Rifaximin 550 Mg Tablet) 550 mg PO BID [facility]; Protocol Stop: 11/08/22 09:01 Last Admin: 10/19/22 08:43 Dose: 550 mg Thiamine HCl (Thiamine 100 Mg Tab) 100 mg PO DAILY [facility] Last Admin: 10/19/22 08:43 Dose: 100 mg PHYSICAL EXAMINATION: GENERAL: The patient is alert and oriented x0, currently on mechanical vent and unresponsive ill-appearing HEENT: Pupils are round and equally reacting to light. EOMI. no scleral icterus. No conjunctival pallor. Normocephalic, atraumatic. No pharyngeal erythema. No thyromegaly. CARDIOVASCULAR: S1 and S2 muffled , tachycardia PULMONARY: diminished breath sounds bilaterally with coarse scattered rhonchi and crackles noted. ABDOMEN: soft. Nontender on exam. -distended, normoactive bowel sounds. No palpable organomegaly. MUSCULOSKELETAL: No joint swelling or deformity. EXTREMITIES: No cyanosis, clubbing, generalized edema noted throughout NEUROLOGICAL: Unable to completely assess as patient is unresponsive and on mechanical ventilation SKIN: No rashes. Jaundice Assessment: Bilateral pneumonia with possible aspiration, with sepsis, present on admission Acute hypoxic respiratory failure secondary to above requiring mechanical ventilation Anemia, thrombocytopenia secondary to alcoholic liver disease alcohol withdrawal syndrome and delirium tremens sinus tachycardia Acute renal failure Cirrhosis of the liver Possible vaginal bleeding Alcoholic hepatitis with chronic liver disease and ascites, cirrhosis of the liver GI prophylaxis DVT prophylaxis No code Plan: Recommend to continue with current medications and management and being followed in the ICU as patient remains on mechanical ventilation. Patient is off all sedation with neurology following as well as multiple other consultations including infectious disease. Most recent blood cultures are negative patient is maintained on IV antibiotics Patient is currently undergoing gift of life process per family request and currently awaiting harvesting of organs possibly later today Due to multiple complex medical issues, prognosis is extremely guarded and poor as well. The impression and plan of care has been dictated by Cee Owens, nurse practitioner as directed. Dr. Bebe MD I have performed a history and examination and MDM of this patient, discussed the same with the dictator, and agree with the dictator's assessment and plan as written ,documented as a scribe. Based on total visit time, I have performed more than 50% of the visit. Any additional findings or plans will be noted. Objective - Vital Signs Vital signs: Vital Signs Temp 97.5 F L 10/19/22 08:00 Pulse 100 10/19/22 09:00 Resp 21 10/19/22 09:00 BP 110/49 10/19/22 09:00 Pulse Ox 95 10/19/22 09:00 FiO2 100 10/19/22 09:33 Intake & Output 10/18/22 10/19/22 10/19/22 18:59 06:59 18:59 Intake Total 785.359 738.884 26 Output Total 115 161 15 Balance 670.359 577.884 11 Weight 82 kg 82.5 kg Intake: IV 133 169 26 Sodium Chloride 0.9% 1, 100 130 20 000 ml @ 75 mls/hr IV . [id number] [facility]UENTES Rx#:[id number] pressure bag 33 39 6 Intake, IV Titration 292.359 109.884 Amount Norepinephrine 4 mg In 292.359 109.884 Sodium Chloride 0.9% 250 ml @ 0.03 MCG/KG/MIN 8. 675 mls/hr IV .Q24H [facility] Rx#:[id number] Tube Feeding 330 150 0 Blood Product 0 310 Rc As-1 Unit 0 310 [id number] Other 30 Output: Urine 115 161 15 Other: Voiding Method Indwelling Catheter Indwelling Catheter Indwelling Catheter ABP, PAP, CO, CI - Last Documented Arterial Blood Pressure 132/43 - Labs CBC & Chem 7: 10/19/22 12:07 10/19/22 12:07 Labs: Abnormal Lab Results - Last 24 Hours (Table) 10/15/22 10/18/22 10/18/22 Range/Units 08:11 09:24 12:04 WBC (3.8-10.6) k/uL RBC (3.80-5.40) m/uL Hgb (11.4-16.0) gm/dL Hct (34.0-46.0) % MCV (80.0-100.0) fL MCH (25.0-35.0) pg RDW (11.5-15.5) % Plt Count (150-450) k/uL Neutrophils # (1.3-7.7) k/uL Neutrophils # (Manual) (1.3-7.7) k/uL Metamyelocytes # (Man) (0) k/uL Myelocytes # (Manual) (0) k/uL Macrocytosis PT (9.0-12.0) sec INR (<1.2) APTT (22.0-30.0) sec ABG pO2 (83-108) mmHg ABG O2 Saturation (94-97) % Sodium (137-145) mmol/L Carbon Dioxide (22-30) mmol/L BUN (7-17) mg/dL Creatinine (0.52-1.04) mg/dL Glucose (74-99) mg/dL POC Glucose (mg/dL) 122 H (70-110) mg/dL Phosphorus 8.2 H (2.5-4.5) mg/dL Total Bilirubin (0.2-1.3) mg/dL AST (14-36) U/L Alkaline Phosphatase (38-126) U/L Total Protein (6.3-8.2) g/dL Albumin (3.5-5.0) g/dL Lipase (23-300) U/L Urine Appearance (Clear) Urine Protein (Negative) Urine Blood (Negative) Urine Bilirubin (Negative) Ur Leukocyte Esterase (Negative) Urine RBC (0-5) /hpf Urine WBC (0-5) /hpf Urine WBC Clumps (None) /hpf Urine Bacteria (None) /hpf Urine Mucus (None) /hpf Urine Yeast (Budding) (None) /hpf Crossmatch See Detail Blood Bank Comment Sent to [facility] A Reference Lab Result See BBK REF Reports A 10/18/22 10/18/22 10/18/22 Range/Units 14:41 14:41 15:01 WBC 17.7 H (3.8-10.6) k/uL RBC 1.88 L (3.80-5.40) m/uL Hgb 6.9 L* (11.4-16.0) gm/dL Hct 20.8 L (34.0-46.0) % MCV 110.6 H (80.0-100.0) fL MCH 36.7 H (25.0-35.0) pg RDW 24.9 H (11.5-15.5) % Plt Count 34 L (150-450) k/uL Neutrophils # (1.3-7.7) k/uL Neutrophils # (Manual) 14.50 H (1.3-7.7) k/uL Metamyelocytes # (Man) 0.18 H (0) k/uL Myelocytes # (Manual) 0.35 H (0) k/uL Macrocytosis Marked A PT (9.0-12.0) sec INR (<1.2) APTT (22.0-30.0) sec ABG pO2 (83-108) mmHg ABG O2 Saturation (94-97) % Sodium 135 L (137-145) mmol/L Carbon Dioxide 20 L (22-30) mmol/L BUN 87 H (7-17) mg/dL Creatinine 3.24 H (0.52-1.04) mg/dL Glucose 107 H (74-99) mg/dL POC Glucose (mg/dL) (70-110) mg/dL Phosphorus 8.5 H (2.5-4.5) mg/dL Total Bilirubin 16.5 H* (0.2-1.3) mg/dL AST 130 H (14-36) U/L Alkaline Phosphatase 161 H (38-126) U/L Total Protein 5.6 L (6.3-8.2) g/dL Albumin 2.3 L (3.5-5.0) g/dL Lipase 565 H (23-300) U/L Urine Appearance Cloudy H (Clear) Urine Protein 1+ H (Negative) Urine Blood Moderate H (Negative) Urine Bilirubin 3+ H (Negative) Ur Leukocyte Esterase Small H (Negative) Urine RBC 12 H (0-5) /hpf Urine WBC 11 H (0-5) /hpf Urine WBC Clumps Few H (None) /hpf Urine Bacteria Rare H (None) /hpf Urine Mucus Rare H (None) /hpf Urine Yeast (Budding) Few H (None) /hpf Crossmatch Blood Bank Comment Reference Lab Result 10/18/22 10/18/22 10/18/22 Range/Units 15:14 18:35 19:18 WBC (3.8-10.6) k/uL RBC (3.80-5.40) m/uL Hgb (11.4-16.0) gm/dL Hct (34.0-46.0) % MCV (80.0-100.0) fL MCH (25.0-35.0) pg RDW (11.5-15.5) % Plt Count (150-450) k/uL Neutrophils # (1.3-7.7) k/uL Neutrophils # (Manual) (1.3-7.7) k/uL Metamyelocytes # (Man) (0) k/uL Myelocytes # (Manual) (0) k/uL Macrocytosis PT 14.3 H (9.0-12.0) sec INR 1.4 H (<1.2) APTT (22.0-30.0) sec ABG pO2 >400 H (83-108) mmHg ABG O2 Saturation 100.0 H (94-97) % Sodium (137-145) mmol/L Carbon Dioxide (22-30) mmol/L BUN (7-17) mg/dL Creatinine (0.52-1.04) mg/dL Glucose (74-99) mg/dL POC Glucose (mg/dL) 145 H (70-110) mg/dL Phosphorus (2.5-4.5) mg/dL Total Bilirubin (0.2-1.3) mg/dL AST (14-36) U/L Alkaline Phosphatase (38-126) U/L Total Protein (6.3-8.2) g/dL Albumin (3.5-5.0) g/dL Lipase (23-300) U/L Urine Appearance (Clear) Urine Protein (Negative) Urine Blood (Negative) Urine Bilirubin (Negative) Ur Leukocyte Esterase (Negative) Urine RBC (0-5) /hpf Urine WBC (0-5) /hpf Urine WBC Clumps (None) /hpf Urine Bacteria (None) /hpf Urine Mucus (None) /hpf Urine Yeast (Budding) (None) /hpf Crossmatch Blood Bank Comment Reference Lab Result 10/18/22 10/18/22 10/18/22 Range/Units 23:44 23:45 23:45 WBC 19.2 H (3.8-10.6) k/uL RBC 2.32 L (3.80-5.40) m/uL Hgb 8.4 L D (11.4-16.0) gm/dL Hct 24.9 L (34.0-46.0) % MCV 107.2 H (80.0-100.0) fL MCH 36.4 H (25.0-35.0) pg RDW 23.0 H (11.5-15.5) % Plt Count 34 L (150-450) k/uL Neutrophils # 16.1 H (1.3-7.7) k/uL Neutrophils # (Manual) (1.3-7.7) k/uL Metamyelocytes # (Man) (0) k/uL Myelocytes # (Manual) (0) k/uL Macrocytosis Marked A PT 14.0 H (9.0-12.0) sec INR 1.4 H (<1.2) APTT 36.9 H (22.0-30.0) sec ABG pO2 (83-108) mmHg ABG O2 Saturation (94-97) % Sodium (137-145) mmol/L Carbon Dioxide (22-30) mmol/L BUN (7-17) mg/dL Creatinine (0.52-1.04) mg/dL Glucose (74-99) mg/dL POC Glucose (mg/dL) 129 H (70-110) mg/dL Phosphorus (2.5-4.5) mg/dL Total Bilirubin (0.2-1.3) mg/dL AST (14-36) U/L Alkaline Phosphatase (38-126) U/L Total Protein (6.3-8.2) g/dL Albumin (3.5-5.0) g/dL Lipase (23-300) U/L Urine Appearance (Clear) Urine Protein (Negative) Urine Blood (Negative) Urine Bilirubin (Negative) Ur Leukocyte Esterase (Negative) Urine RBC (0-5) /hpf Urine WBC (0-5) /hpf Urine WBC Clumps (None) /hpf Urine Bacteria (None) /hpf Urine Mucus (None) /hpf Urine Yeast (Budding) (None) /hpf Crossmatch Blood Bank Comment Reference Lab Result 10/18/22 10/19/22 10/19/22 Range/Units 23:45 02:00 05:19 WBC (3.8-10.6) k/uL RBC (3.80-5.40) m/uL Hgb (11.4-16.0) gm/dL Hct (34.0-46.0) % MCV (80.0-100.0) fL MCH (25.0-35.0) pg RDW (11.5-15.5) % Plt Count (150-450) k/uL Neutrophils # (1.3-7.7) k/uL Neutrophils # (Manual) (1.3-7.7) k/uL Metamyelocytes # (Man) (0) k/uL Myelocytes # (Manual) (0) k/uL Macrocytosis PT (9.0-12.0) sec INR (<1.2) APTT (22.0-30.0) sec ABG pO2 388 H (83-108) mmHg ABG O2 Saturation 100.0 H (94-97) % Sodium 133 L (137-145) mmol/L Carbon Dioxide 19 L (22-30) mmol/L BUN 91 H (7-17) mg/dL Creatinine 3.27 H (0.52-1.04) mg/dL Glucose 117 H (74-99) mg/dL POC Glucose (mg/dL) 114 H (70-110) mg/dL Phosphorus (2.5-4.5) mg/dL Total Bilirubin 18.2 H* (0.2-1.3) mg/dL AST 132 H (14-36) U/L Alkaline Phosphatase 165 H (38-126) U/L Total Protein 5.7 L (6.3-8.2) g/dL Albumin 2.3 L (3.5-5.0) g/dL Lipase 638 H (23-300) U/L Urine Appearance (Clear) Urine Protein (Negative) Urine Blood (Negative) Urine Bilirubin (Negative) Ur Leukocyte Esterase (Negative) Urine RBC (0-5) /hpf Urine WBC (0-5) /hpf Urine WBC Clumps (None) /hpf Urine Bacteria (None) /hpf Urine Mucus (None) /hpf Urine Yeast (Budding) (None) /hpf Crossmatch Blood Bank Comment Reference Lab Result 10/19/22 10/19/22 10/19/22 Range/Units 05:20 05:20 05:20 WBC 20.3 H (3.8-10.6) k/uL RBC 2.30 L (3.80-5.40) m/uL Hgb 8.4 L (11.4-16.0) gm/dL Hct 24.6 L (34.0-46.0) % MCV 106.9 H (80.0-100.0) fL MCH 36.5 H (25.0-35.0) pg RDW 23.2 H (11.5-15.5) % Plt Count 34 L (150-450) k/uL Neutrophils # (1.3-7.7) k/uL Neutrophils # (Manual) (1.3-7.7) k/uL Metamyelocytes # (Man) (0) k/uL Myelocytes # (Manual) (0) k/uL Macrocytosis Marked A PT 13.8 H (9.0-12.0) sec INR 1.4 H (<1.2) APTT 36.0 H (22.0-30.0) sec ABG pO2 (83-108) mmHg ABG O2 Saturation (94-97) % Sodium 133 L (137-145) mmol/L Carbon Dioxide 20 L (22-30) mmol/L BUN 93 H (7-17) mg/dL Creatinine 3.32 H (0.52-1.04) mg/dL Glucose 106 H (74-99) mg/dL POC Glucose (mg/dL) (70-110) mg/dL Phosphorus 8.6 H (2.5-4.5) mg/dL Total Bilirubin 18.0 H* (0.2-1.3) mg/dL AST 129 H (14-36) U/L Alkaline Phosphatase 183 H (38-126) U/L Total Protein 5.7 L (6.3-8.2) g/dL Albumin 2.3 L (3.5-5.0) g/dL Lipase (23-300) U/L Urine Appearance (Clear) Urine Protein (Negative) Urine Blood (Negative) Urine Bilirubin (Negative) Ur Leukocyte Esterase (Negative) Urine RBC (0-5) /hpf Urine WBC (0-5) /hpf Urine WBC Clumps (None) /hpf Urine Bacteria (None) /hpf Urine Mucus (None) /hpf Urine Yeast (Budding) (None) /hpf Crossmatch Blood Bank Comment Reference Lab Result 10/19/22 Range/Units 06:10 WBC (3.8-10.6) k/uL RBC (3.80-5.40) m/uL Hgb (11.4-16.0) gm/dL Hct (34.0-46.0) % MCV (80.0-100.0) fL MCH (25.0-35.0) pg RDW (11.5-15.5) % Plt Count (150-450) k/uL Neutrophils # (1.3-7.7) k/uL Neutrophils # (Manual) (1.3-7.7) k/uL Metamyelocytes # (Man) (0) k/uL Myelocytes # (Manual) (0) k/uL Macrocytosis PT (9.0-12.0) sec INR (<1.2) APTT (22.0-30.0) sec ABG pO2 364 H (83-108) mmHg ABG O2 Saturation 100.0 H (94-97) % Sodium (137-145) mmol/L Carbon Dioxide (22-30) mmol/L BUN (7-17) mg/dL Creatinine (0.52-1.04) mg/dL Glucose (74-99) mg/dL POC Glucose (mg/dL) (70-110) mg/dL Phosphorus (2.5-4.5) mg/dL Total Bilirubin (0.2-1.3) mg/dL AST (14-36) U/L Alkaline Phosphatase (38-126) U/L Total Protein (6.3-8.2) g/dL Albumin (3.5-5.0) g/dL Lipase (23-300) U/L Urine Appearance (Clear) Urine Protein (Negative) Urine Blood (Negative) Urine Bilirubin (Negative) Ur Leukocyte Esterase (Negative) Urine RBC (0-5) /hpf Urine WBC (0-5) /hpf Urine WBC Clumps (None) /hpf Urine Bacteria (None) /hpf Urine Mucus (None) /hpf Urine Yeast (Budding) (None) /hpf Crossmatch Blood Bank Comment Reference Lab Result Microbiology - Last 24 Hours (Table) 10/12/22 15:46 Blood Culture - Final Blood No Growth after 144 hours
[2022-10-19] MEDS: fentaNYL (PF). 1,000 MCG in SODIUM CHLORIDE 0.9% 80 ML IV SCH ×2 (14:41→21:18)
[2022-10-19] MEDS ORDERED: LORazepam 2 MG/ML INJ IV PRN (17:20)
[2022-10-20] MEDS: fentaNYL (PF). 1,000 MCG in SODIUM CHLORIDE 0.9% 80 ML IV SCH ×4 (01:34→15:19)
[2022-10-20 17:07] VITALS: BP 35/17; PULSE 75; RESP 8
--- NOTE | 2022-10-20 21:45 | P.PN ---
Subjective Progress Note Date: 10/20/22 This is a 42-year-old female who was recently admitted with bilateral pneumonia, sepsis, alcohol intoxication withdrawal and remains on mechanical ventilation ICU with multiple medical consultations following. Significant other currently working on obtaining guardianship to make decisions and patient is no code currently. Apparently has a guardianship hearing on Saturday and will follow- up after that. Patient currently is afebrile and remains tachycardic and continues on mechanical ventilation with an FiO2 of 30% with a PEEP of 8. Patient is continued on IV antibiotics in the form of meropenem and linezolid and is requiring small dose Levophed and is currently not on any type of sedation and remains unresponsive. Neurology following an EEG is ordered today. Review of systems: Unable to obtain as patient is on mechanical vent and unresponsive 10/16/2022 Patient is seen and evaluated in follow-up maintained in the ICU currently off sedation and continues on mechanical vent with an FiO2 of 30% and PEEP is 5. Per social work who is following, significant other working on guardianship court hearing on Saturday to be able to make the decisions and will continue current treatment plan discussion of possible comfort measures once there is guardianship. Hemoglobin is 7.4 today and there is some vaginal bleeding noted per nursing staff. Repeat labs ordered and pending. Patient's kidney functions worsening and nephrology is following. Patient also continues on antibiotics with infectious disease following and will continue for now. Overall prognosis is poor and guarded. 10/17/2022 Patient continues to be in the ICU on mechanical ventilation with no significant change from previous. Per nursing staff [employer] has been contacted per family and are willing to proceed with this procedure and workup to determine any type of donations can be made. Patient's hemoglobin is above 7 and kidney functions continue to worsen. Significant other of 17 years did obtain guard ianship and would like to proceed with [employer] as possible. Patient is currently afebrile maintained on antibiotics with ID following along with other consultations. Nephrology and pulmonary deputy sheriff generalist/bailiff are following closely. Neurology following as well and patient remains no code. Will follow-up on [employer] and continue supportive measures during their investigation. 10/18/2022 Patient is seen in follow-up of currently undergoing the gift of life process and awaiting a repeat Covid test along with 2-D echo. Discussing possible bronchoscopy with multiple medical consultations continuing to follow. Patient is maintained on IV antibiotics for bacteremia although most recent blood cultures have been negative. Infectious disease is following closely recommending to continue with current regimen until patient is made comfort measures. Patient's hemoglobin was 6.9 today and will transfuse 1 unit of PRBCs. To continue with supportive care and undergoing gift of life process... 10/19/2022 Patient is seen in follow-up with a friend at the bedside continues on mechanical ventilation and currently undergoing gift of life process. Plan is for harvesting of organs later today. Pulmonary deputy sheriff generalist/bailiff following as well with no plans of bronchoscopy and patient is continued on antibiotics for now. Patient is currently afebrile and prognosis remains extremely poor. WBC remains elevated at 20.2 and hemoglobin is 8.2, sodium is 133 with a potassium of 4.2 kidney functions trending up with a creatinine of 3.34, total bili remains 18. Chest x-ray appears to be worsening with multifocal pneumonia versus pneumonia with superimposed pulmonary edema. 10/20/2022 Patient is in the MICU. Was terminally weakned off yesterday. Patient is drowsy and lethargic. Continued on comfort care measures. Family is at bedside. Review of systems: Unable to obtain PHYSICAL EXAMINATION: GENERAL: The patient is alert and oriented x0, HEENT: Pupils are round and equally reacting to light. EOMI. _+ icterus. CARDIOVASCULAR: S1 and S2 muffled , tachycardia PULMONARY: diminished breath sounds bilaterally with coarse scattered rhonchi and crackles noted. ABDOMEN: soft. Nontender on exam. -distended, normoactive bowel sounds. No palpable organomegaly. MUSCULOSKELETAL: No joint swelling or deformity. EXTREMITIES: No cyanosis, clubbing, generalized edema noted throughout NEUROLOGICAL: Unable to completely assess SKIN: No rashes. Jaundice Assessment: Bilateral pneumonia with possible aspiration, with sepsis, present on admission Acute hypoxic respiratory failure secondary to above requiring mechanical ventilation Anemia, thrombocytopenia secondary to alcoholic liver disease alcohol withdrawal syndrome and delirium tremens sinus tachycardia Acute renal failure Cirrhosis of the liver Possible vaginal bleeding Alcoholic hepatitis with chronic liver disease and ascites, cirrhosis of the liver GI prophylaxis DVT prophylaxis comfort care Plan: Patient is currently undergoing gift of life process per family request and currently awaiting harvesting of organs possibly later today Due to multiple complex medical issues, prognosis is extremely guarded and poor as well. Objective - Vital Signs Vital signs: Vital Signs Temp 97.5 F L 10/19/22 12:00 Pulse 90 10/20/22 08:00 Resp 18 10/20/22 02:00 BP 72/27 10/20/22 08:00 Pulse Ox 87 L 10/20/22 08:00 FiO2 30 10/19/22 14:15 Intake & Output 10/19/22 10/20/22 10/20/22 18:59 06:59 18:59 Intake Total 145.622 241.281 96.525 Output Total 35 40 Balance 110.622 201.281 96.525 Weight 86.5 kg Intake: IV 91 Sodium Chloride 0.9% 1, 70 000 ml @ 75 mls/hr IV . [id number] [facility] Rx#:[id number] pressure bag 21 Intake, IV Titration 54.622 241.281 96.525 Amount Norepinephrine 4 mg In 22.172 Sodium Chloride 0.9% 250 ml @ 0.03 MCG/KG/MIN 8. 675 mls/hr IV .Q24H [facility] Rx#:[id number] fentaNYL (PF). 1,000 mcg 32.450 241.281 96.525 In Sodium Chloride 0.9% 80 ml @ 0.5 MCG/KG/HR 4. 125 mls/hr IV .Q24H [facility] Rx#:[id number] Tube Feeding 0 Output: Urine 35 40 Other: Voiding Method Indwelling Catheter Indwelling Catheter Indwelling Catheter ABP, PAP, CO, CI - Last Documented Arterial Blood Pressure 118/41 - Labs CBC & Chem 7: 10/19/22 12:07 10/19/22 12:07
== END 2022-10-20 21:38 | disposition expired | DRG 720 ==
LOC: EC 20:26 → EEVIPCON 22:45 → 2SICU 22:45
PROVIDERS: ADMIT Hospitalist; ATTEND Hospitalist
PROC: 0BH17EZ Insertion of Endotracheal Airway into Trachea, Via Natural or Artificial Opening (ICD-10-PCS; principal; 2022-10-08)
PROC: 5A1955Z Respiratory Ventilation, Greater than 96 Consecutive Hours (ICD-10-PCS; principal; 2022-10-08)
PROC: 06HY33Z Insertion of Infusion Device into Lower Vein, Percutaneous Approach (ICD-10-PCS; principal; 2022-10-08)
PROC: 03HY32Z Insertion of Monitoring Device into Upper Artery, Percutaneous Approach (ICD-10-PCS; 2022-10-08)
PROC: 4A133J1 Monitoring of Arterial Pulse, Peripheral, Percutaneous Approach (ICD-10-PCS; 2022-10-08)
PROC: 4A133B1 Monitoring of Arterial Pressure, Peripheral, Percutaneous Approach (ICD-10-PCS; 2022-10-08)
PROC: 3E043XZ Introduction of Vasopressor into Central Vein, Percutaneous Approach (ICD-10-PCS; 2022-10-09)
PROC: 0D9670Z Drainage of Stomach with Drainage Device, Via Natural or Artificial Opening (ICD-10-PCS; 2022-10-09)
PROC: 3E0G76Z Introduction of Nutritional Substance into Upper GI, Via Natural or Artificial Opening (ICD-10-PCS; 2022-10-09)
PROC: 30243N1 Transfusion of Nonautologous Red Blood Cells into Central Vein, Percutaneous Approach (ICD-10-PCS; 2022-10-11)
PROC: 30243R1 Transfusion of Nonautologous Platelets into Central Vein, Percutaneous Approach (ICD-10-PCS; 2022-10-12)
PROC: 3E03328 Introduction of Oxazolidinones into Peripheral Vein, Percutaneous Approach (ICD-10-PCS; 2022-10-13)
DX: A41.02 Sepsis due to Methicillin resistant Staphylococcus aureus (principal); K76.7 Hepatorenal syndrome; J96.01 Acute respiratory failure with hypoxia; N17.0 Acute kidney failure with tubular necrosis; J69.0 Pneumonitis due to inhalation of food and vomit; G92.8 Other toxic encephalopathy; R65.21 Severe sepsis with septic shock; F10.231 Alcohol dependence with withdrawal delirium; J15.212 Pneumonia due to Methicillin resistant Staphylococcus aureus; D68.4 Acquired coagulation factor deficiency; K76.82 Hepatic encephalopathy; K70.31 Alcoholic cirrhosis of liver with ascites; D68.59 Other primary thrombophilia; Z51.5 Encounter for palliative care; Z66 Do not resuscitate; A41.51 Sepsis due to Escherichia coli [E. coli]; A40.1 Sepsis due to streptococcus, group B; Z20.822 Contact with and (suspected) exposure to COVID-19; E87.0 Hyperosmolality and hypernatremia; D63.8 Anemia in other chronic diseases classified elsewhere; E87.1 Hypo-osmolality and hyponatremia; D62 Acute posthemorrhagic anemia; D69.59 Other secondary thrombocytopenia; K70.11 Alcoholic hepatitis with ascites; K76.0 Fatty (change of) liver, not elsewhere classified; G93.89 Other specified disorders of brain; E16.2 Hypoglycemia, unspecified; Y90.0 Blood alcohol level of less than 20 mg/100 ml; E53.8 Deficiency of other specified B group vitamins; E83.42 Hypomagnesemia; E87.70 Fluid overload, unspecified; E87.6 Hypokalemia; E03.9 Hypothyroidism, unspecified; N93.9 Abnormal uterine and vaginal bleeding, unspecified; K21.9 Gastro-esophageal reflux disease without esophagitis; G62.9 Polyneuropathy, unspecified; K82.8 Other specified diseases of gallbladder; F17.210 Nicotine dependence, cigarettes, uncomplicated; Z71.6 Tobacco abuse counseling; Z87.442 Personal history of urinary calculi; Z88.1 Allergy status to other antibiotic agents; Z88.5 Allergy status to narcotic agent
CPT/HCPCS: 31500; 36415; 36556; 36600; 70450; 71045; 71250; 71260; 74018; 74176; 74177; 76700; 76705; 80048; 80053; 80074; 80202; 80306; 80320; 81001; 82140; 82150; 82248; 82550; 82565; 82607; 82746; 82803; 82805; 83036; 83605; 83690; 83735; 83880; 84100; 84132; 84145; 84439; 84443; 84484; 84702; 84703; 85025; 85027; 85379; 85384; 85610; 85730; 86140; 86850; 86870; 86880; 86900; 86901; 86902; 86920; 87040; 87070; 87077; 87186; 87205; 87449; 87635; 87636; 93005; 93306; 93970; 94002; 94003; 94640; 95822; 96361; 96374; 96375; 96376; 99291; 99292